=== PATIENT | male | born 1940 | race African-American/Black ===

== ENCOUNTER 2017-04-22 20:43 | Inpatient (IN) | payer MEDICARE, MEDICAID ==
[~2017-04-22] VITALS: Ht 180.3 cm; Wt 96.6 kg
[2017-04-22] MEDS ORDERED: KCl 10% 40mEq/30ml liquid ORAL ONE (21:00)
[2017-04-22 21:30] VITALS: BP 117/57
--- NOTE | 2017-04-22 21:48 | Emergency Room Report ---
History of Present Illness General Chief Complaint: Abnormal Labs Source: Patient Present Illness HPI Patient is a 76-year-old male who presented after having increased abnormal laboratory testing. Patient had been sent in by primary care physician because potassium was alert be low. The patient denies any current complaints. He reportedly was DO NOT RESUSCITATE. He denies any fever he denies any abdominal pain or recent diarrhea. Allergies: Coded Allergies: No Known Allergies (Unverified , 04/22/17) Patient History Reviewed Nursing Documentation: PMH: Agreed, PSxH: Agreed Nursing Documentation-PM Past Medical History: No History, Except For Hx Diabetes: Yes - DM2 Review of Systems All Other Systems: limited - by poor historian Physical Exam Vital Signs Date Time Temp Pulse Resp B/P Pulse Ox O2 Delivery O2 Flow Rate FiO2 04/22/17 20:36 98.1 64 16 117/57 98 Room Air Sp02 EP Interpretation: reviewed, normal General Appearance: normal inspection, well appearing, no apparent distress, alert Head: atraumatic ENT: normal ENT inspection, hearing grossly normal, normal voice Neck: normal inspection, full range of motion, supple, no bony tend Respiratory: normal inspection, lungs clear, normal breath sounds, no respiratory distress, no retraction, no wheezing Cardiovascular #1: regular rate, rhythm, no edema Gastrointestinal: non tender, soft, no guarding, no hernia, distended Genitourinary: no CVA tenderness Musculoskeletal: normal inspection, back normal, normal range of motion Neurologic: normal inspection, alert, oriented x3, responsive, speech normal Psychiatric: normal inspection, judgement/insight normal, mood/affect normal Skin: normal inspection, normal color, no rash Medical Decision Making Diagnostic Impression: Primary Impression: Hyperkalemia Additional Impressions: Gastroparesis Ileus ER Course The patient presented for abnormal laboratory values.Patient was noted to have hypokalemia. Differential diagnosis included wasn't limited to hypothyroidism, diuretic use, diarrhea, renal tubular acidosis among others.Because of complexity of patient's case laboratory testing and imaging studies were ordered.Patient was noted to have a low potassium from facility laboratory testing. Patient was given oral potassium. A repeat laboratory testing showed elevated potassium level. Patient was given rectal Kayexalate. KUB one view interpreted by me showed a multiple dilated loops of large intestine as well as retained stool. Dr. Nicolas was contacted for inpatient management due to primary care physician Labs Test 8/1/17 22:15 White Blood Count 9.1 K/UL (4.8-10.8) Red Blood Count 4.13 M/UL (4.70-6.10) Hemoglobin 13.3 G/DL (14.2-18.0) Hematocrit 38.7 % (42.0-52.0) Mean Corpuscular Volume 94 FL (80-99) Mean Corpuscular Hemoglobin 32.1 PG (27.0-31.0) Mean Corpuscular Hemoglobin Concent 34.2 G/DL (32.0-36.0) Red Cell Distribution Width 12.8 % (11.6-14.8) Platelet Count 258 K/UL (150-450) Mean Platelet Volume 7.7 FL (6.5-10.1) Neutrophils (%) (Auto) 74.5 % (45.0-75.0) Lymphocytes (%) (Auto) 18.9 % (20.0-45.0) Monocytes (%) (Auto) 5.0 % (1.0-10.0) Eosinophils (%) (Auto) 0.7 % (0.0-3.0) Basophils (%) (Auto) 0.9 % (0.0-2.0) Sodium Level 145 mEQ/L (135-145) Potassium Level 5.3 mEQ/L (3.4-4.9) Chloride Level 109 mEQ/L (98-107) Carbon Dioxide Level 23 mEQ/L (20-30) Anion Gap 13 (5-15) Blood Urea Nitrogen 20 mg/dL (7-23) Creatinine 1.1 mg/dL (0.7-1.2) Estimat Glomerular Filtration Rate mL/min (>60) Glucose Level 140 mg/dL (74-106) Lactic Acid Level 1.40 mmol/L (0.66-2.22) Calcium Level 8.9 mg/dL (8.6-10.2) Total Bilirubin 0.3 mg/dL (0.0-1.2) Aspartate Amino Transf (AST/SGOT) 37 U/L (5-40) Alanine Aminotransferase (ALT/SGPT) 22 U/L (3-41) Alkaline Phosphatase 76 U/L (40-129) Ammonia 43 umol/L (16-60) Total Creatine Kinase 143 U/L (38-174) Creatine Kinase MB 2.5 ng/mL (< 6.7) Creatine Kinase MB Relative Index 1.7 Troponin I < 0.30 ng/mL (<=0.30) Total Protein 7.5 g/dL (6.6-8.7) Albumin 3.4 g/dL (3.5-5.2) Globulin 4.1 g/dL Albumin/Globulin Ratio 0.8 (1.0-2.7) Last Vital Signs Date Time Temp Pulse Resp B/P Pulse Ox O2 Delivery O2 Flow Rate FiO2 04/22/17 20:36 98.1 64 16 117/57 98 Room Air Status: unchanged Disposition: ADMITTED INPATIENT Condition: Stable Referrals: Jose Francisco Chand MD (PCP) Toño Joe Apr 22, 2017 21:48
[2017-04-22 22:49] LABS: BASOPHILS % (AUTO) 0.9 % (0.0-2.0); EOSINOPHILS % (AUTO) 0.7 % (0.0-3.0); LYMPHOCYTES % (AUTO) 18.9 % (20.0-45.0); MEAN CORPUSCULAR HEMOGLOBIN 32.1 PG (27.0-31.0); MEAN CORPUSCULAR HGB CONC 34.2 G/DL (32.0-36.0); MEAN CORPUSCULAR VOLUME 94 FL (80-99); MEAN PLATELET VOLUME 7.7 FL (6.5-10.1); NEUTROPHILS % (AUTO) 74.5 % (45.0-75.0); PLATELET COUNT 258 K/UL (150-450); RED BLOOD COUNT 4.13 M/UL (4.70-6.10); RED CELL DISTRIBUTION WIDTH 12.8 % (11.6-14.8); WHITE BLOOD COUNT 9.1 K/UL (4.8-10.8)
[2017-04-22] MEDS ORDERED: SIMETHICONE80 MG ORAL (23:00)
[2017-04-22] MEDS ORDERED: TAMSULOSIN HCL0.4 MG ORAL (23:00)
[2017-04-22] MEDS ORDERED: FLORANEX TABLE1 EAC1 PO (23:00)
[2017-04-22] MEDS ORDERED: AMLODIPINE BESYL5 MG ORAL (23:00)
[2017-04-22] MEDS ORDERED: LEVEMIR100 UNIT/1 SUBQ (23:00)
[2017-04-22] MEDS ORDERED: VITAMIN C500 M1 ORAL (23:00)
[2017-04-22] MEDS ORDERED: REGLAN10 MG ORAL (23:00)
[2017-04-22] MEDS ORDERED: PROSCAR5 MG ORAL (23:00)
[2017-04-22] MEDS ORDERED: NOVOLOG100 UNIT/3 SUBQ ×2 (23:00)
[2017-04-22] MEDS ORDERED: ATORVASTATIN CA10 MG ORAL (23:00)
[2017-04-22] MEDS ORDERED: MULTIVITAMINS1 EAC8 ORAL (23:00)
[2017-04-22] MEDS ORDERED: FERROUS SULFAT325 MG ORAL (23:00)
[2017-04-22] MEDS ORDERED: POTASSIUM CHLO20 ME1 ORAL (23:00)
[2017-04-22] MEDS ORDERED: HYDRALAZINE HCL50 MG ORAL (23:00)
[2017-04-22] MEDS ORDERED: CATAPRES0.1 MG ORAL (23:00)
[2017-04-22] MEDS ORDERED: TYLENOL EXTRA500 MG ORAL (23:00)
[2017-04-22] MEDS ORDERED: ASPIR 8181 MG ORAL (23:00)
[2017-04-22] MEDS ORDERED: LEVOTHYROXINE25 MCG ORAL (23:00)
[2017-04-22] MEDS ORDERED: DOCUSATE SODIU100 MG ORAL (23:00)
[2017-04-22 23:01] LABS: AMMONIA 43 umol/L (16-60); TROPONIN I < 0.30 ng/mL (<=0.30)
[2017-04-22 23:03] LABS: ALANINE AMINOTRANSFERASE 22 U/L (3-41); ALBUMIN/GLOBULIN RATIO 0.8 (1.0-2.7); ANION GAP 13 (5-15); ASPARTATE AMINO TRANSFERASE 37 U/L (5-40); CALCIUM 8.9 mg/dL (8.6-10.2); CARBON DIOXIDE 23 mEQ/L (20-30); CHLORIDE 109 mEQ/L (98-107); CREATININE 1.1 mg/dL (0.7-1.2); HEMOLYSIS 394; POTASSIUM 5.3 mEQ/L (3.4-4.9); SODIUM 145 mEQ/L (135-145); TOTAL PROTEIN 7.5 g/dL (6.6-8.7)
[2017-04-22 23:13] LABS: CKMB 2.5 ng/mL (< 6.7)
[2017-04-22] MEDS ORDERED: Sodium Polystyrene Sulfonate Enema RECTAL ONE (23:45)
[2017-04-23] VITALS (9 sets, daily range): BP systolic 120–195; BP diastolic 60–99
[2017-04-23] MEDS ORDERED: Sodium Polystyrene Sulfonate 15gm Powder ONE (00:19)
[2017-04-23] MEDS ORDERED: Metoclopramide 10mg/2ml Inj IVP PRN (10:45)
--- NOTE | 2017-04-23 11:11 | Diagnostic Imaging Report ---
Indication: Abdominal distention and pain Technique: Supine view of the abdomen Comparison: none Findings: The distal colon is markedly dilated, sigmoid loops measuring up to 15 cm in caliber. Colon proximal to this is also somewhat distended, diffusely gas filled. No definite wall thickening Moderate amount retained stool is present. Small bowel loops are not definitely dilated. No unusual masses or calcifications Impression: Markedly dilated sigmoid colon. While likely on a functional basis possibility of sigmoid volvulus should also be considered. Correlate with clinical findings
[2017-04-23] MEDS: NovoLOG Insulin Flexpen SUBQ SCH ×3 (13:02→21:29)
[2017-04-23] MEDS ORDERED: Simethicone 80mg tab ORAL PRN (14:30)
--- NOTE | 2017-04-23 14:30 | Consultation ---
Consult Note Consult Note asked to eval for high K Patient is a 76-year-old male who presented after having increased abnormal laboratory testing. Patient had been sent in by primary care physician because potassium was alert be low. The patient denies any current complaints. He reportedly was DO NOT RESUSCITATE. He denies any fever he denies any abdominal pain or recent diarrhea. Past Medical History: No History, Except For Hx Diabetes: Yes - DM2 Patient denies pain examined- data reviewed Assessment/Plan HyperKalemia, ? Dehydration , ? Hemolysis Obstipation HTN High Cholestrol Anemia DM HypoThyroidism Plan: Ua Hydrate- Laxatives Monitor lytes and BS and BP MAEVE RUIZ Apr 23, 2017 14:30
[2017-04-23] MEDS: Docusate 100mg cap ORAL SCH ×2 (14:52→17:51)
[2017-04-23] MEDS: Tamsulosin 0.4mg cap ORAL SCH ×2 (14:52→17:51)
[2017-04-23 15:38] LABS: APPEARANCE,URINE SLIGHTLY CLOUDY; KETONES,URINE NEGATIVE (NEGATIVE); LEUKOCYTE ESTERASE ,URINE 3+ (NEGATIVE); NITRITE,URINE NEGATIVE (NEGATIVE); PH,URINE 5 (4.5-8.0); PROTEIN,URINE 3+ (NEGATIVE); UROBILINOGEN,URINE 1 MG/DL (0.0-1.0)
[2017-04-23 16:06] LABS: WBC,URINE 15-20 /HPF (0 - 0)
[2017-04-23 16:07] LABS: BACTERIA,URINE MANY /HPF; SQUAMOUS EPITHELIAL CELL,UR OCCASIONAL /LPF (NONE/OCC)
[2017-04-23] MEDS: Ascorbic Acid 500mg tab ORAL SCH (17:51)
[2017-04-23] MEDS: Lactobacillus-GG tablet ORAL SCH (17:51)
[2017-04-23] MEDS ORDERED: Lactulose 20gm/30ml UDC ORAL SCH ×2 (18:00)
[2017-04-23] MEDS: HydrALAZINE 50mg tab ORAL SCH (18:22)
[2017-04-23] MEDS ORDERED: Tamsulosin 0.4mg cap ORAL SCH (21:00)
[2017-04-23] MEDS: Levemir Flexpen SUBQ SCH (21:28)
--- NOTE | 2017-04-23 22:00 | History and Physical Report ---
DATE OF ADMISSION: 04/22/2017 The patient is a poor historian, has advanced dementia, cannot rely upon his history. HISTORY OF PRESENT ILLNESS: The patient's potassium was low actually at the alf, however, somehow the labs at [facility] showed actually an elevated potassium. The patient also has abdominal distention likely fecal impaction . Again, the patient is a poor historian, cannot rely upon his history. Denies nausea, vomiting, or diarrhea. Denies fever or chills. Denies abdominal pain, shortness of breath, or cough. Denies chills. PAST MEDICAL HISTORY: Advanced dementia, NIDDM, hyperlipidemia, hypertension, iron deficiency anemia, BPH, hypothyroidism, and gastroparesis. PAST SURGICAL HISTORY: Appendectomy. MEDICATIONS: Acidophilus, Tylenol, amlodipine, vitamin C, aspirin, Lipitor, clonidine, Colace, ferrous sulfate, finasteride, hydralazine, insulin, Levoxyl, Reglan, potassium, simethicone, and Flomax. ALLERGIES: No known allergies. SOCIAL HISTORY: . Lives at alf. FAMILY HISTORY: Noncontributory. REVIEW OF SYSTEMS: HEENT: Denies headaches. Respiratory: Denies shortness of breath. Denies cough. Cardiovascular: Denies chest pain. Gastrointestinal: Denies nausea, vomiting or diarrhea. Extremities: Denies pain in the lower extremities. Central Nervous System: Denies change in vision or speech pattern. PHYSICAL EXAMINATION: VITAL SIGNS: Temperature is 98.2 degrees, pulse 69, and blood pressure 182/79. HEENT: PERRLA. NECK: Supple. No lymphadenopathy. CHEST: Clear to auscultation. GASTROINTESTINAL: Soft and distended. Positive bowel sounds. No organomegaly. EXTREMITIES: No edema. NEUROLOGIC: Reflexes are equal on both sides. Moves all four extremities. No edema. Oriented to name only which is his baseline. Able to move extremities. LABORATORY AND DIAGNOSTIC DATA: WBC 9.1, hemoglobin 13.3, and platelets 258,000. Sodium 145, potassium 5.3, chloride 109, BUN 20, creatinine 1.1, and glucose 140. ASSESSMENT: 1. Ileus. 2. Fecal impaction. 3. Electrolyte imbalance. I have asked to see the patient for the above-mentioned diagnoses and treatment. Ali Flex Chand DR: Glen[place] JOB#: [id number] CC:
--- NOTE | 2017-04-23 22:42 | General Progress Note ---
Assessment/Plan Assessment/Plan GI CONSULT Dictated Patient has a benign abd exam but a concerning KUB Will get CT to evaluate for possible volvulus. Keep NPO Thank you Naresh Prather MD Subjective Allergies: Coded Allergies: No Known Allergies (Unverified , 04/22/17) Objective Last 24 Hour Vital Signs Date Time Temp Pulse Resp B/P Pulse Ox O2 Delivery O2 Flow Rate FiO2 04/23/17 20:56 61 146/67 04/23/17 20:00 98.1 61 20 146/67 100 Room Air 04/23/17 18:22 195/99 04/23/17 16:00 98.6 62 18 195/99 99 Room Air 04/23/17 12:50 77 160/69 04/23/17 12:00 98.3 65 17 156/85 99 Room Air 04/23/17 08:00 97.5 68 18 120/70 98 Room Air 04/23/17 04:00 97.0 60 17 165/73 98 Room Air 04/23/17 01:59 161/72 04/23/17 01:50 98.2 69 20 183/79 100 Room Air 04/23/17 00:30 98.0 70 17 120/60 98 Room Air 04/22/17 23:47 98.1 77 16 117/57 98 Room Air Intake and Output 04/22/17 04/23/17 19:00 07:00 Intake Total 100 ml Output Total 0 ml Balance 100 ml Intake Oral 100 ml Output Urine Total 0 ml # Voids 2 # Bowel Movements 3 Laboratory Tests 04/23/17 15:23: Urine Color Yellow, Urine Appearance Slightly cloudy, Urine pH 5, Urine Specific [place] 1.020, Urine Protein 3+H, Urine Glucose (UA) Negative, Urine Ketones Negative, Urine Occult Blood 1+H, Urine Nitrite Negative, Urine Bilirubin Negative, Urine Urobilinogen 1H, Urine Leukocyte Esterase 3+H, Urine RBC 2-4H, Urine WBC 15-20H, Urine Squamous Epithelial Cells Occasional, Urine Bacteria ManyH Height (Feet): 5 Height (Inches): 11.00 Weight (Pounds): 213 NARESH SPARROW Apr 23, 2017 22:42
[2017-04-24 04:00] VITALS: BP 158/84
[2017-04-24] MEDS: Levothyroxine 25mcg tab ORAL SCH (06:26)
[2017-04-24] MEDS: HydrALAZINE 50mg tab ORAL SCH ×3 (06:26→21:46)
[2017-04-24] MEDS: NovoLOG Insulin Flexpen SUBQ SCH ×4 (06:27→21:48)
[2017-04-24 07:09] LABS: BASOPHILS % (AUTO) 0.6 % (0.0-2.0); LYMPHOCYTES % (AUTO) 16.9 % (20.0-45.0); MEAN CORPUSCULAR HEMOGLOBIN 30.7 PG (27.0-31.0); MEAN CORPUSCULAR HGB CONC 32.7 G/DL (32.0-36.0); MEAN CORPUSCULAR VOLUME 94 FL (80-99); MEAN PLATELET VOLUME 6.9 FL (6.5-10.1); MONOCYTES % (AUTO) 5.6 % (1.0-10.0); NEUTROPHILS % (AUTO) 75.9 % (45.0-75.0); PLATELET COUNT 225 K/UL (150-450); RED BLOOD COUNT 3.55 M/UL (4.70-6.10); RED CELL DISTRIBUTION WIDTH 12.6 % (11.6-14.8); WHITE BLOOD COUNT 8.9 K/UL (4.8-10.8)
[2017-04-24 07:13] LABS: HEMOGLOBIN A1C 5.2 % (< 6.0)
[2017-04-24 07:23] LABS: FERRITIN 126 ng/mL (10-230)
[2017-04-24 07:24] LABS: ALANINE AMINOTRANSFERASE 16 U/L (3-41); ANION GAP 11 (5-15); ASPARTATE AMINO TRANSFERASE 12 U/L (5-40); CALCIUM 8.1 mg/dL (8.6-10.2); CARBON DIOXIDE 24 mEQ/L (20-30); CHLORIDE 109 mEQ/L (98-107); CHOLESTEROL 99 mg/dL (< 200); CHOLESTEROL/HDL RATIO 2.6 (3.3-4.4); CRP QUANT < 0.3 mg/dL (< 0.5); LDL CHOLESTEROL (CALC.) 50 mg/dL (60-99); MAGNESIUM 1.6 mg/dL (1.7-2.5); PHOSPHORUS 3.1 mg/dL (2.5-4.8); SODIUM 144 mEQ/L (135-145); TOTAL PROTEIN 6.2 g/dL (6.6-8.7); URIC ACID 5.3 mg/dL (3.0-7.5)
[2017-04-24 07:30] LABS: POTASSIUM 2.5 mEQ/L (3.4-4.9)
--- NOTE | 2017-04-24 07:31 | Consultation ---
DATE OF CONSULTATION: 04/23/2017 GASTROLOGY CONSULTATION CONSULTING PHYSICIAN: Naresh Sher M.D. CHIEF COMPLAINT: I was asked to see this patient by Dr. Jose Francisco Chand for evaluation of distended abdomen. HISTORY OF PRESENT ILLNESS: The patient is a pleasant 76-year-old man with advanced dementia, who comes into the hospital due to an elevated potassium. The patient was also found to have a distended abdomen which prompted this consultation. The patient denies any abdominal discomfort, nausea or vomiting. He denies the pain and says he has regular bowel movements. He cannot recall if he had a colonoscopy or any surgeries on his abdomen. He states he has been eating well. PAST MEDICAL HISTORY: History of advanced dementia, [id number] diabetes mellitus, hyperlipidemia, hypertension, iron deficiency anemia, benign prostatic hypertrophy, hypothyroidism, and gastroparesis. PAST SURGICAL HISTORY: Appendectomy. MEDICATIONS: See the chart list for records. ALLERGIES: None. FAMILY HISTORY: Noncontributory. SOCIAL HISTORY: The patient lives in a snf and has had no recent history of smoking or drinking. REVIEW OF SYSTEMS: Otherwise negative. PHYSICAL EXAMINATION: GENERAL: Pleasant man, seen in his room. HEENT: Normocephalic and atraumatic. Sclerae anicteric. Oropharynx is clear. NECK: Supple. CHEST: Clear to auscultation. CARDIOVASCULAR: Revealed a regular rate. ABDOMEN: Distended, but soft and tympanitic. There is no obvious masses or tenderness. EXTREMITIES: Revealed bilateral lower extremity edema. NEUROLOGIC: Grossly nonfocal. LABORATORY DATA: Noted. ASSESSMENT: This patient presents with distended abdomen, which is tympanitic, but nontender. There concerning however is the appearance of the KUB, which shows a marked distention of the sigmoid colon with a loop pattern, which is suspicious for sigmoid volvulus. The patient should have an urgent CT scan of the abdomen and pelvis to evaluate this possibility further. He clearly does not seem to be in any discomfort and therefore, this finding may be due to a functional disorder. Nonetheless, the CT scan should help evaluate this process and guide management. RECOMMENDATIONS: 1. Keep the patient NPO. 2. CT scan of the abdomen and pelvis. 3. Follow exam and x-rays closely. 4. Further recommendations to follow. Thank you for asking me to participate in the care of this patient. Naresh Sher M.D. DR: LOPEZ JOB#: [id number] CC:
[2017-04-24 07:43] LABS: HEMOLYSIS 2; IRON 41 ug/dL (59-158); TOTAL IRON BINDING CAPACITY 173 ug/dL (250-400)
[2017-04-24 08:00] VITALS: BP 167/68
[2017-04-24 08:12] LABS: CREATININE 0.9 mg/dL (0.7-1.2)
[2017-04-24] MEDS: Docusate 100mg cap ORAL SCH ×3 (08:48→17:15)
[2017-04-24] MEDS: Lactobacillus-GG tablet ORAL SCH ×2 (08:48→17:15)
[2017-04-24] MEDS: Multivitamin w/Minerals tab ORAL SCH (08:49)
[2017-04-24] MEDS: Ascorbic Acid 500mg tab ORAL SCH ×2 (08:49→17:15)
[2017-04-24] MEDS: Aspirin EC 81mg tab ORAL SCH (08:49)
[2017-04-24] MEDS: Tamsulosin 0.4mg cap ORAL SCH ×2 (08:53→17:15)
--- NOTE | 2017-04-24 08:58 | Diagnostic Imaging Report ---
Indication: Abdominal pain Technique: Continuous helical transaxial imaging of the abdomen and pelvis was obtained from the lung bases to the pubic symphysis. No intravenous contrast was administered. Coronal 2-D reformats were also obtained. Total Dose length Product (DLP): [address] Dose Index Volume (CTDIvol): 18 mGy Comparison: none Findings: There is a hiatal hernia present. There is a suspected thickening of the distal esophageal wall. Esophagitis not excluded. Small pericardial effusion is present. Lung bases are clear. Suspect tiny nonobstructive stone in the left kidney. A large mass in the left kidney is probably a cyst measures about 7 cm in diameter. Gallbladder is contracted. The sigmoid colon is redundant and elongated and dilated measuring up to about 10 CM. There is no evidence of volvulus. There is slight twisting of the dorsal mesentery within the mid abdomen with slight swirled like pattern of the dorsal mesenteric root. The findings suggest the possibility of internal hernia. There is no obstruction associated with this. No inflammatory changes or free fluid seen. There is moderate fecal retention within the rectal vault noted. The appendix is not densely seen. There are no secondary signs of acute appendicitis. There is prominence of both adrenal glands. There is narrowing of intervertebral discs and accompanying endplate osteophyte formation. Hypertrophied facet joints also demonstrated. The bones demonstrate heterogeneous, overall diminished mineralization. This could be due to a osteoporosis. Possibility of myeloma, metastatic neoplasm or other infiltrative diseases are not excluded. Impression: Moderately dilated and air-filled sigmoid colon is redundant and elongated. No evidence of sigmoid volvulus or colonic obstruction. Pattern of dorsal mesentery in the mid to lower abdomen suggest possibility of an internal hernia. This is not associated with bowel obstruction or other complications. Suspected tiny nonobstructive stone in left kidney. Bilateral adrenal gland prominence could be due to hyperplasia or is presence of small bilateral adrenal masses. Suspected thickening of the wall the distal esophagus. EGD may be helpful for. 7 cm left renal mass. Cyst probably a cyst. Atherosclerotic disease Small pericardial effusion Spondylosis. Abnormal bone mineralization. Metastatic neoplasm or myeloma not excluded. Consider bone scan. Dr. Biggs has communicated the preliminary results to the Emergency Department. There are no significant discrepancies. The CT scanner at [facility] is accredited by the [employer] and the scans are performed using dose optimization techniques as appropriate to a performed exam including Automatic Exposure control.
[2017-04-24] MEDS ORDERED: Levothyroxine 25mcg tab ORAL SCH (09:00)
[2017-04-24] MEDS: Levemir Flexpen SUBQ SCH ×2 (11:07→21:52)
[2017-04-24 12:00] VITALS: BP 150/68
--- NOTE | 2017-04-24 12:31 | General Progress Note ---
Assessment/Plan Assessment/Plan Assessment - colonic dysmotility - abd distention - OBS - NIDDM\ - anemia - h/o gastroparesis Recommendations - po diet - OOB - Bowel regimen - check OB Subjective Allergies: Coded Allergies: No Known Allergies (Unverified , 04/22/17) Subjective Feels well ate solid breakfast no abd pain no N/V CT noted Objective Last 24 Hour Vital Signs Date Time Temp Pulse Resp B/P Pulse Ox O2 Delivery O2 Flow Rate FiO2 04/24/17 12:00 97.7 62 18 150/68 100 Room Air 04/24/17 08:49 48 167/68 04/24/17 08:00 97.9 48 18 167/68 Room Air 04/24/17 06:26 158/84 04/24/17 04:00 98.1 72 18 158/84 98 Room Air 04/24/17 00:40 186/79 04/23/17 23:54 98.1 56 20 186/79 100 Room Air 04/23/17 20:56 61 146/67 04/23/17 20:00 98.1 61 20 146/67 100 Room Air 04/23/17 18:22 195/99 04/23/17 16:00 98.6 62 18 195/99 99 Room Air 04/23/17 12:50 77 160/69 Intake and Output 04/23/17 04/24/17 19:00 07:00 Intake Total 650 ml 800 ml Output Total 50 ml Balance 600 ml 800 ml Intake Oral 650 ml IV Total 800 ml Output Urine Total 50 ml # Voids 2 2 # Bowel Movements 2 2 Laboratory Tests 04/23/17 15:23: Urine Color Yellow, Urine Appearance Slightly cloudy, Urine pH 5, Urine Specific [place] 1.020, Urine Protein 3+H, Urine Glucose (UA) Negative, Urine Ketones Negative, Urine Occult Blood 1+H, Urine Nitrite Negative, Urine Bilirubin Negative, Urine Urobilinogen 1H, Urine Leukocyte Esterase 3+H, Urine RBC 2-4H, Urine WBC 15-20H, Urine Squamous Epithelial Cells Occasional, Urine Bacteria ManyH 04/24/17 06:00: White Blood Count 8.9, Red Blood Count 3.55L, Hemoglobin 10.9L, Hematocrit 33.4L , Mean Corpuscular Volume 94, Mean Corpuscular Hemoglobin 30.7, Mean Corpuscular Hemoglobin Concent 32.7, Red Cell Distribution Width 12.6, Platelet Count 225, Mean Platelet Volume 6.9, Neutrophils (%) (Auto) 75.9H, Lymphocytes ( %) (Auto) 16.9L, Monocytes (%) (Auto) 5.6, Eosinophils (%) (Auto) 1.0, Basophils (%) (Auto) 0.6, Reticulocyte Count 1.1, Sodium Level 144, Potassium Level 2.5#*L, Chloride Level 109H, Carbon Dioxide Level 24, Anion Gap 11, Blood Urea Nitrogen 14, Creatinine 0.9, Estimat Glomerular Filtration Rate , Glucose Level 65L, Hemoglobin A1c 5.2, Uric Acid 5.3, Calcium Level 8.1L, Phosphorus Level 3.1, Magnesium Level 1.6L, Iron Level 41L, Total Iron Binding Capacity 173L, Percent Iron Saturation 24, Unsaturated Iron Binding 132, Soluble Transferrin Receptor [Pending], Ferritin 126, Total Bilirubin 0.3, Aspartate Amino Transf (AST/SGOT) 12, Alanine Aminotransferase (ALT/SGPT) 16, Alkaline Phosphatase 72, C-Reactive Protein, Quantitative < 0.3, Total Protein 6.2L, Albumin 3.2L, Globulin 3.0, Albumin/Globulin Ratio 1.0, Triglycerides Level 55, Cholesterol Level 99, LDL Cholesterol 50L, HDL Cholesterol 38, Cholesterol/HDL Ratio 2.6L, Vitamin B12 Level 512, Folate [Pending], Thyroid Stimulating Hormone (TSH) 1.290 Height (Feet): 5 Height (Inches): 11.00 Weight (Pounds): 213 Objective WDWN AA man NCAT supple CTA RRR abd typmanitic, soft, NT, no mass (+) edema OBS CYNTHIA SPARROW Apr 24, 2017 12:31
--- NOTE | 2017-04-24 14:17 | General Progress Note ---
Assessment/Plan Status: stable Assessment/Plan HyperKalemia, ? Dehydration , ? Hemolysis Obstipation, colonic dysmotility, gastroparesis HTN High Cholestrol Anemia DM HypoThyroidism Plan: K IV per GI Subjective ROS Limited/Unobtainable: No Constitutional: Reports: malaise Gastrointestinal/Abdominal: Reports: diarrhea Allergies: Coded Allergies: No Known Allergies (Unverified , 04/22/17) Objective Last 24 Hour Vital Signs Date Time Temp Pulse Resp B/P Pulse Ox O2 Delivery O2 Flow Rate FiO2 04/24/17 12:00 97.7 62 18 150/68 100 Room Air 04/24/17 08:49 48 167/68 04/24/17 08:00 97.9 48 18 167/68 Room Air 04/24/17 06:26 158/84 04/24/17 04:00 98.1 72 18 158/84 98 Room Air 04/24/17 00:40 186/79 04/23/17 23:54 98.1 56 20 186/79 100 Room Air 04/23/17 20:56 61 146/67 04/23/17 20:00 98.1 61 20 146/67 100 Room Air 04/23/17 18:22 195/99 04/23/17 16:00 98.6 62 18 195/99 99 Room Air Intake and Output 04/23/17 04/24/17 19:00 07:00 Intake Total 650 ml 800 ml Output Total 50 ml Balance 600 ml 800 ml Intake Oral 650 ml IV Total 800 ml Output Urine Total 50 ml # Voids 2 2 # Bowel Movements 2 2 Laboratory Tests 04/23/17 15:23: Urine Color Yellow, Urine Appearance Slightly cloudy, Urine pH 5, Urine Specific [place] 1.020, Urine Protein 3+H, Urine Glucose (UA) Negative, Urine Ketones Negative, Urine Occult Blood 1+H, Urine Nitrite Negative, Urine Bilirubin Negative, Urine Urobilinogen 1H, Urine Leukocyte Esterase 3+H, Urine RBC 2-4H, Urine WBC 15-20H, Urine Squamous Epithelial Cells Occasional, Urine Bacteria ManyH 04/24/17 06:00: White Blood Count 8.9, Red Blood Count 3.55L, Hemoglobin 10.9L, Hematocrit 33.4L , Mean Corpuscular Volume 94, Mean Corpuscular Hemoglobin 30.7, Mean Corpuscular Hemoglobin Concent 32.7, Red Cell Distribution Width 12.6, Platelet Count 225, Mean Platelet Volume 6.9, Neutrophils (%) (Auto) 75.9H, Lymphocytes ( %) (Auto) 16.9L, Monocytes (%) (Auto) 5.6, Eosinophils (%) (Auto) 1.0, Basophils (%) (Auto) 0.6, Reticulocyte Count 1.1, Sodium Level 144, Potassium Level 2.5#*L, Chloride Level 109H, Carbon Dioxide Level 24, Anion Gap 11, Blood Urea Nitrogen 14, Creatinine 0.9, Estimat Glomerular Filtration Rate , Glucose Level 65L, Hemoglobin A1c 5.2, Uric Acid 5.3, Calcium Level 8.1L, Phosphorus Level 3.1, Magnesium Level 1.6L, Iron Level 41L, Total Iron Binding Capacity 173L, Percent Iron Saturation 24, Unsaturated Iron Binding 132, Soluble Transferrin Receptor [Pending], Ferritin 126, Total Bilirubin 0.3, Aspartate Amino Transf (AST/SGOT) 12, Alanine Aminotransferase (ALT/SGPT) 16, Alkaline Phosphatase 72, C-Reactive Protein, Quantitative < 0.3, Total Protein 6.2L, Albumin 3.2L, Globulin 3.0, Albumin/Globulin Ratio 1.0, Triglycerides Level 55, Cholesterol Level 99, LDL Cholesterol 50L, HDL Cholesterol 38, Cholesterol/HDL Ratio 2.6L, Vitamin B12 Level 512, Folate [Pending], Thyroid Stimulating Hormone (TSH) 1.290 Height (Feet): 5 Height (Inches): 11.00 Weight (Pounds): 213 General Appearance: no apparent distress Cardiovascular: normal rate Respiratory/Chest: lungs clear Abdomen: soft, distended MAEVE RUIZ Apr 24, 2017 14:17
[2017-04-24 16:01] VITALS: BP 148/72
[2017-04-24 20:00] VITALS: BP 163/71
--- NOTE | 2017-04-24 21:05 | General Progress Note ---
Assessment/Plan Problem List: (1) Ileus ICD Codes: K56.7 - Ileus, unspecified SNOMED: 814638552 (2) Hyperkalemia ICD Codes: E87.5 - Hyperkalemia SNOMED: 93704594 (3) Gastroparesis ICD Codes: K31.84 - Gastroparesis SNOMED: 383072988 Status: progressing Assessment/Plan afebrile fecal impaction improving vitals stable lyte abnormality improving gastroparesis obs Subjective Constitutional: Reports: no symptoms Allergies: Coded Allergies: No Known Allergies (Unverified , 04/22/17) Objective Last 24 Hour Vital Signs Date Time Temp Pulse Resp B/P Pulse Ox O2 Delivery O2 Flow Rate FiO2 04/24/17 20:00 99.0 68 18 163/71 98 Room Air 04/24/17 16:01 98.0 54 18 148/72 98 Nasal Cannula 04/24/17 14:30 150/68 04/24/17 12:00 97.7 62 18 150/68 100 Room Air 04/24/17 08:49 48 167/68 04/24/17 08:00 97.9 48 18 167/68 Room Air 04/24/17 06:26 158/84 04/24/17 04:00 98.1 72 18 158/84 98 Room Air 04/24/17 00:40 186/79 04/23/17 23:54 98.1 56 20 186/79 100 Room Air Intake and Output 04/23/17 04/24/17 19:00 07:00 Intake Total 650 ml 800 ml Output Total 50 ml Balance 600 ml 800 ml Intake Oral 650 ml IV Total 800 ml Output Urine Total 50 ml # Voids 2 2 # Bowel Movements 2 2 Laboratory Tests 04/24/17 06:00: White Blood Count 8.9, Red Blood Count 3.55L, Hemoglobin 10.9L, Hematocrit 33.4L , Mean Corpuscular Volume 94, Mean Corpuscular Hemoglobin 30.7, Mean Corpuscular Hemoglobin Concent 32.7, Red Cell Distribution Width 12.6, Platelet Count 225, Mean Platelet Volume 6.9, Neutrophils (%) (Auto) 75.9H, Lymphocytes ( %) (Auto) 16.9L, Monocytes (%) (Auto) 5.6, Eosinophils (%) (Auto) 1.0, Basophils (%) (Auto) 0.6, Reticulocyte Count 1.1, Sodium Level 144, Potassium Level 2.5#*L, Chloride Level 109H, Carbon Dioxide Level 24, Anion Gap 11, Blood Urea Nitrogen 14, Creatinine 0.9, Estimat Glomerular Filtration Rate , Glucose Level 65L, Hemoglobin A1c 5.2, Uric Acid 5.3, Calcium Level 8.1L, Phosphorus Level 3.1, Magnesium Level 1.6L, Iron Level 41L, Total Iron Binding Capacity 173L, Percent Iron Saturation 24, Unsaturated Iron Binding 132, Soluble Transferrin Receptor [Pending], Ferritin 126, Total Bilirubin 0.3, Aspartate Amino Transf (AST/SGOT) 12, Alanine Aminotransferase (ALT/SGPT) 16, Alkaline Phosphatase 72, C-Reactive Protein, Quantitative < 0.3, Total Protein 6.2L, Albumin 3.2L, Globulin 3.0, Albumin/Globulin Ratio 1.0, Triglycerides Level 55, Cholesterol Level 99, LDL Cholesterol 50L, HDL Cholesterol 38, Cholesterol/HDL Ratio 2.6L, Vitamin B12 Level 512, Folate [Pending], Thyroid Stimulating Hormone (TSH) 1.290 Height (Feet): 5 Height (Inches): 11.00 Weight (Pounds): 213 General Appearance: confused Cardiovascular: normal rate Respiratory/Chest: lungs clear Jose Francisco Chand MD Apr 24, 2017 21:05
[2017-04-25] VITALS: BP 132/66
--- NOTE | 2017-04-25 02:15 | Consultation ---
DATE OF CONSULTATION: 04/24/2017 HISTORY OF PRESENT ILLNESS: This is a 76-year-old male with a history of multiple medical problems including ileus, hyperkalemia, and gastroparesis. He has been admitted to the hospital presenting with also has history of advanced dementia. The patient was sitting in the room watching TV. He was in no acute distress. He complained of depressed mood and fatigue. He has impairment of memory, concentration, and attention. PAST PSYCHIATRIC HISTORY: He is not able to provide history, but however, is not significant for any psychiatric hospitalization in the past. He has been diagnosed with dementia in the past. PAST MEDICAL HISTORY: Significant for NIDDM, hyperlipidemia, hypothyroidism, hypertension, and iron deficiency anemia. MEDICATIONS: Include acidophilus, Tylenol, aspirin, Lipitor, clonidine, hydralazine, insulin, Reglan, potassium, and Flomax. ALLERGIES: No known drug allergies. SUBSTANCE ABUSE HISTORY: No history of illicit drug use or alcohol. SOCIAL HISTORY: He lives in a care home. MENTAL STATUS EXAMINATION: The patient is alert and oriented times self and place. Mood is neutral. Affect is constricted. Congruent mood. Thought process, there is a paucity of thought content. Thought content, no suicidal or homicidal ideation. Insight and judgment is impaired. ASSESSMENT: [place] I Dementia. [place] II Deferred. [place] III As above. [place] IV Moderate. [place] V 20 PLAN: We will order the Namenda 10 mg p.o. at bedtime. Greg Gupta M.D. DR: Yassine JOB#: [id number] CC:
[2017-04-25 04:00] VITALS: BP 128/62
[2017-04-25] MEDS: Levothyroxine 25mcg tab ORAL SCH (05:17)
[2017-04-25] MEDS: HydrALAZINE 50mg tab ORAL SCH ×2 (05:18→13:05)
[2017-04-25] MEDS: NovoLOG Insulin Flexpen SUBQ SCH ×3 (05:18→16:30)
--- NOTE | 2017-04-25 06:46 | Consultation ---
DATE OF CONSULTATION: 04/24/2017 HEMATOLOGY/ONCOLOGY CONSULTATION CONSULTING PHYSICIAN: Sterling Singletary M.D. REQUESTING PHYSICIAN: Jose Francisco Chand M.D. REASON FOR CONSULTATION: Evaluation of anemia. IDENTIFICATION DATA: Dear Dr. Jose Francisco Chand, The patient is a pleasant 76-year-old male with past medical history significant for type 2 diabetes mellitus. At this time, presents to [facility] with increased potassium, seen by PCP, elevated potassium was high and therefore transferred to [facility] and noted to be anemic. Hematology service consulted. PAST MEDICAL HISTORY: 1. Diabetes mellitus type 2. 2. Hypothyroidism. 3. Hyperlipidemia. 4. Hypertension. 5. Iron-deficiency anemia. 6. Gastroparesis. PAST SURGICAL HISTORY: Appendectomy. MEDICATIONS: Amlodipine, Tylenol, , aspirin, clonidine, Colace, ferrous sulfate, hydralazine , Levoxyl, Reglan, and potassium. ALLERGIES: No known drug allergies. SOCIAL HISTORY: He lives in a [facility]. FAMILY HISTORY: Noncontributory. REVIEW OF SYSTEMS: Constitutional: No fevers, chills, or night sweats. Skin: No rashes, lumps, or itching. HEENT: No headache, hearing, or vision changes. Breasts: No lumps, pain, or discharge. Pulmonary: No cough, sputum, or shortness of breath. Cardiovascular: No chest pain, tightness, or palpitations. Gastrointestinal: No nausea, vomiting, or diarrhea. . PHYSICAL EXAMINATION: GENERAL: He is in no acute distress. VITAL SIGNS: Reviewed. PULMONARY: Decreased breath sounds. CARDIOVASCULAR: Regular rate. No S3 or S4. ABDOMEN: Soft, nontender, and nondistended. EXTREMITIES: A 1+ edema. LABORATORY AND DIAGNOSTIC DATA: WBC 9.1, hemoglobin 13.3, hematocrit 35, and platelet count 258,000. BUN of 20 and creatinine 1.1. Imaging, CAT scan of the abdomen and pelvis shows abnormal bone mineralization on 04/24/2017, bilateral adrenal prominence. ASSESSMENT AND PLAN: 1. Anemia secondary to chronic disease. Anemia workup has been ordered and ferritin pending. Hold off on IV iron at the moment. 2. Sigmoid volvulus potentially, the patient currently NPO as per GI recommendations. 3. Hyperkalemia, has been seen by Nephrology service. 4. Gastroparesis and ileus. Continue to closely monitor. 5. . Sterling Singletary M.D. DR: Demarco JOB#: [id number] CC:
[2017-04-25 06:59] LABS: ALANINE AMINOTRANSFERASE 15 U/L (3-41); ASPARTATE AMINO TRANSFERASE 12 U/L (5-40); CALCIUM 7.8 mg/dL (8.6-10.2); CARBON DIOXIDE 24 mEQ/L (20-30); CHLORIDE 110 mEQ/L (98-107); HEMOLYSIS 2; MAGNESIUM 1.6 mg/dL (1.7-2.5); SODIUM 145 mEQ/L (135-145); TOTAL PROTEIN 5.9 g/dL (6.6-8.7)
[2017-04-25 07:15] LABS: ANION GAP 11 (5-15)
[2017-04-25 07:32] LABS: POTASSIUM 2.7 mEQ/L (3.4-4.9)
[2017-04-25 07:41] VITALS: BP 136/77
--- NOTE | 2017-04-25 08:38 | Infectious Diseases Prog Note ---
Assessment/Plan Problems: (1) UTI (urinary tract infection) Assessment & Plan: due to e coli, will start ceftriaxon , to treat for 7 days (2) Ileus Assessment & Plan: improving, advance diet as tolerated, replace electrolytes , GI is following (3) Diabetes mellitus Assessment & Plan: recommend tight glycemic control to keep blood glucose between 80-120 Subjective Allergies: Coded Allergies: No Known Allergies (Unverified , 04/22/17) Objective Vital Signs Last 24 Hour Vital Signs Date Time Temp Pulse Resp B/P Pulse Ox O2 Delivery O2 Flow Rate FiO2 04/25/17 07:41 97.5 77 20 136/77 97 Room Air 04/25/17 05:18 128/62 04/25/17 04:00 98.6 57 19 128/62 98 04/25/17 00:00 99.1 65 20 132/66 100 Room Air 04/24/17 21:46 163/71 04/24/17 21:46 68 163/71 04/24/17 20:00 99.0 68 18 163/71 98 Room Air 04/24/17 16:01 98.0 54 18 148/72 98 Nasal Cannula 04/24/17 14:30 150/68 04/24/17 12:00 97.7 62 18 150/68 100 Room Air 04/24/17 08:49 48 167/68 Height (Feet): 5 Height (Inches): 11.00 Weight (Pounds): 213 Microbiology Date/Time Source Procedure Growth Status 04/22/17 23:30 Blood Blood Culture - Preliminary NO GROWTH AFTER 48 HOURS Resulted 04/22/17 23:25 Blood Blood Culture - Preliminary NO GROWTH AFTER 48 HOURS Resulted 04/23/17 15:23 Urine,Clean Catch Urine Culture - Final Escherichia Coli Complete 04/23/17 01:40 Rectum VRE Culture - Final NO VANCOMYCIN RESISTANT ENTEROCOCCUS ... Complete Laboratory Tests Test 04/25/17 05:00 Sodium Level 145 mEQ/L (135-145) Potassium Level 2.7 mEQ/L (3.4-4.9) *L Chloride Level 110 mEQ/L (98-107) H Carbon Dioxide Level 24 mEQ/L (20-30) Anion Gap 11 (5-15) Blood Urea Nitrogen 14 mg/dL (7-23) Creatinine 1.0 mg/dL (0.7-1.2) Estimat Glomerular Filtration Rate mL/min (>60) Glucose Level 61 mg/dL (74-106) L Calcium Level 7.8 mg/dL (8.6-10.2) L Phosphorus Level 3.0 mg/dL (2.5-4.8) Magnesium Level 1.6 mg/dL (1.7-2.5) L Total Bilirubin 0.2 mg/dL (0.0-1.2) Aspartate Amino Transf (AST/SGOT) 12 U/L (5-40) Alanine Aminotransferase (ALT/SGPT) 15 U/L (3-41) Alkaline Phosphatase 79 U/L (40-129) Total Protein 5.9 g/dL (6.6-8.7) L Albumin 3.0 g/dL (3.5-5.2) L Globulin 2.9 g/dL Albumin/Globulin Ratio 1.0 (1.0-2.7) Current Medications Medications (Trade) Dose Ordered Sig/Kevin Route PRN Reason Start Time Stop Time Status Last Admin Dose Admin Acetaminophen (Tylenol) 650 mg Q6H PRN ORAL Fever/Headache/Mild Pain 04/23/17 01:15 05/23/17 01:14 Amlodipine Besylate (Norvasc) 5 mg Q12HR ORAL 04/23/17 21:00 05/23/17 20:59 04/24/17 21:46 Ascorbic Acid (Vitamin C) 500 mg TWICE A DAY ORAL 04/23/17 18:00 05/23/17 17:59 04/24/17 17:15 Aspirin (Ecotrin) 81 mg DAILY ORAL 04/24/17 09:00 05/24/17 08:59 04/24/17 08:49 Atorvastatin Calcium (Lipitor) 10 mg QHS ORAL 04/23/17 21:00 05/23/17 20:59 04/24/17 21:47 Bisacodyl (Dulcolax) 10 mg BID RECTAL 04/24/17 18:00 05/24/17 17:59 Clonidine HCl 0.1 mg 0.1 mg Q4H PRN ORAL For High Blood Pressure 04/23/17 20:30 05/23/17 20:29 04/24/17 00:40 Dextrose (Dextrose 50%) STAT PRN IV Hypoglycemia 04/23/17 11:00 05/23/17 10:59 Docusate Sodium (Colace) 100 mg THREE TIMES A DAY ORAL 04/23/17 14:30 05/23/17 14:29 04/24/17 17:15 Finasteride (Proscar) 5 mg DAILY ORAL 04/23/17 11:00 05/23/17 10:59 04/24/17 08:49 Hydralazine HCl (Apresoline) 50 mg EVERY 8 HOURS ORAL 04/23/17 22:00 05/23/17 21:59 04/25/17 05:18 Insulin Aspart (NovoLOG) BEFORE MEALS AND HS SUBQ 04/23/17 12:00 05/23/17 11:59 04/24/17 21:48 Insulin Detemir (Levemir) 39 units EVERY 12 HOURS SUBQ 04/23/17 21:00 05/23/17 20:59 04/24/17 21:52 Lactobacillus Acidophilus (Culturelle) 1 tab TWICE A DAY ORAL 04/23/17 18:00 05/23/17 17:59 04/24/17 17:15 Levothyroxine Sodium (Synthroid) 25 mcg DAILY@0630 ORAL 04/24/17 06:30 05/24/17 06:29 04/25/17 05:17 Memantine 10 mg 10 mg DAILY ORAL 04/25/17 09:00 05/25/17 08:59 Metoclopramide HCl (Reglan) 10 mg Q6H PRN IVP Nausea & Vomiting 04/23/17 10:45 05/23/17 10:44 Multivitamins Therapeutic (Therapeutic Multivitamin) 1 ea DAILY ORAL 04/24/17 09:00 05/24/17 08:59 04/24/17 08:49 Potassium Chloride (KCl 10mEq/100ml Premix) 100 ml @ 100 mls/hr Q1HR IVPB 04/25/17 09:00 04/25/17 14:59 UNV Simethicone (Mylicon) 80 mg Q12H PRN ORAL GAS PAIN 04/23/17 14:30 05/23/17 14:29 Sodium Chloride (0.45% NS 1000ml) 1,000 ml @ 50 mls/hr Q20H IV 04/24/17 09:00 05/24/17 08:59 04/25/17 05:11 Tamsulosin HCl (Flomax) 0.4 mg BID ORAL 04/23/17 14:30 05/23/17 14:29 04/24/17 17:15 Beth Miller M.D. Apr 25, 2017 08:38
[2017-04-25] MEDS: Ascorbic Acid 500mg tab ORAL SCH ×2 (08:56→16:51)
[2017-04-25] MEDS: Docusate 100mg cap ORAL SCH (08:56)
[2017-04-25] MEDS: Tamsulosin 0.4mg cap ORAL SCH ×2 (08:57→16:51)
[2017-04-25] MEDS: Aspirin EC 81mg tab ORAL SCH (08:57)
[2017-04-25] MEDS: Lactobacillus-GG tablet ORAL SCH ×2 (08:57→16:51)
[2017-04-25] MEDS: Multivitamin w/Minerals tab ORAL SCH (08:57)
[2017-04-25] MEDS: Levemir Flexpen SUBQ SCH (08:59)
[2017-04-25] MEDS ORDERED: Memantine 10mg tab ORAL SCH (09:00)
[2017-04-25] MEDS ORDERED: cefTRIAXone 1 GM in D5W 55 ML IVPB SCH (10:00)
[2017-04-25 11:37] VITALS: BP 163/76
--- NOTE | 2017-04-25 11:52 | General Progress Note ---
Assessment/Plan Status: stable Assessment/Plan HyperKalemia, ? Dehydration , ? Hemolysis Obstipation, colonic dysmotility, gastroparesis HTN High Cholestrol Anemia DM HypoThyroidism Plan: K IV and PO per GI Subjective ROS Limited/Unobtainable: No Gastrointestinal/Abdominal: Reports: diarrhea Allergies: Coded Allergies: No Known Allergies (Unverified , 04/22/17) Objective Last 24 Hour Vital Signs Date Time Temp Pulse Resp B/P Pulse Ox O2 Delivery O2 Flow Rate FiO2 04/25/17 11:37 97.7 64 20 163/76 100 Room Air 04/25/17 08:57 77 136/77 04/25/17 07:41 97.5 77 20 136/77 97 Room Air 04/25/17 05:18 128/62 04/25/17 04:00 98.6 57 19 128/62 98 04/25/17 00:00 99.1 65 20 132/66 100 Room Air 04/24/17 21:46 163/71 04/24/17 21:46 68 163/71 04/24/17 20:00 99.0 68 18 163/71 98 Room Air 04/24/17 16:01 98.0 54 18 148/72 98 Nasal Cannula 04/24/17 14:30 150/68 04/24/17 12:00 97.7 62 18 150/68 100 Room Air Intake and Output 04/24/17 04/25/17 19:00 07:00 Intake Total 890 ml 550 ml Balance 890 ml 550 ml Intake Oral 840 ml IV Total 50 ml 550 ml # Voids 7 3 # Bowel Movements 3 2 Laboratory Tests 04/25/17 05:00: Sodium Level 145, Potassium Level 2.7*L, Chloride Level 110H, Carbon Dioxide Level 24, Anion Gap 11, Blood Urea Nitrogen 14, Creatinine 1.0, Estimat Glomerular Filtration Rate , Glucose Level 61L, Calcium Level 7.8L, Phosphorus Level 3.0, Magnesium Level 1.6L, Total Bilirubin 0.2, Aspartate Amino Transf ( AST/SGOT) 12, Alanine Aminotransferase (ALT/SGPT) 15, Alkaline Phosphatase 79, Total Protein 5.9L, Albumin 3.0L, Globulin 2.9, Albumin/Globulin Ratio 1.0 Height (Feet): 5 Height (Inches): 11.00 Weight (Pounds): 213 General Appearance: no apparent distress MAEVE RUIZ Apr 25, 2017 11:52
[2017-04-25] MEDS ORDERED: AMLODIPINE BESYL5 MG ORAL (15:16)
[2017-04-25] MEDS ORDERED: CULTURELLE1 EACH ORAL (15:21)
[2017-04-25] MEDS ORDERED: NAMENDA10 MG ORAL (15:22)
[2017-04-25] MEDS ORDERED: TAMSULOSIN HCL0.4 MG ORAL (15:23)
[2017-04-25] MEDS ORDERED: ACETAMINOPHEN325 M1 ORAL (15:25)
[2017-04-25] MEDS ORDERED: CATAPRES0.1 MG ORAL (15:31)
[2017-04-25] MEDS ORDERED: NOVOLOG100 UNIT/3 SUBQ (15:32)
[2017-04-25] MEDS ORDERED: LEVAQUIN250 M1 ORAL (15:34)
[2017-04-25] MEDS ORDERED: LEVEMIR100 UNIT/1 SUBQ (15:37)
--- NOTE | 2017-04-25 15:42 | General Progress Note ---
Assessment/Plan Assessment/Plan 1. Anemia secondary to chronic disease. Anemia workup has been ordered and ferritin pending. Hold off on IV iron at the moment. --> ferritin still pending 2. Sigmoid volvulus potentially, recs per GI service 3. Hyperkalemia, has been seen by Nephrology service. 4. Gastroparesis and ileus. Continue to closely monitor. --> the patient tolerated breakfast Subjective Constitutional: Reports: no symptoms HEENT: Reports: no symptoms Cardiovascular: Reports: no symptoms Respiratory: Reports: no symptoms Gastrointestinal/Abdominal: Reports: no symptoms Genitourinary: Reports: no symptoms Neurologic/Psychiatric: Reports: no symptoms Endocrine: Reports: no symptoms Hematologic/Lymphatic: Reports: anemia Allergies: Coded Allergies: No Known Allergies (Unverified , 04/22/17) Subjective nad Objective Last 24 Hour Vital Signs Date Time Temp Pulse Resp B/P Pulse Ox O2 Delivery O2 Flow Rate FiO2 04/25/17 13:05 163/76 04/25/17 11:58 163/76 04/25/17 11:37 97.7 64 20 163/76 100 Room Air 04/25/17 08:57 77 136/77 04/25/17 07:41 97.5 77 20 136/77 97 Room Air 04/25/17 05:18 128/62 04/25/17 04:00 98.6 57 19 128/62 98 04/25/17 00:00 99.1 65 20 132/66 100 Room Air 04/24/17 21:46 163/71 04/24/17 21:46 68 163/71 04/24/17 20:00 99.0 68 18 163/71 98 Room Air 04/24/17 16:01 98.0 54 18 148/72 98 Nasal Cannula Intake and Output 04/24/17 04/25/17 19:00 07:00 Intake Total 890 ml 550 ml Balance 890 ml 550 ml Intake Oral 840 ml IV Total 50 ml 550 ml # Voids 7 3 # Bowel Movements 3 2 Laboratory Tests 04/25/17 05:00: Sodium Level 145, Potassium Level 2.7*L, Chloride Level 110H, Carbon Dioxide Level 24, Anion Gap 11, Blood Urea Nitrogen 14, Creatinine 1.0, Estimat Glomerular Filtration Rate , Glucose Level 61L, Calcium Level 7.8L, Phosphorus Level 3.0, Magnesium Level 1.6L, Total Bilirubin 0.2, Aspartate Amino Transf ( AST/SGOT) 12, Alanine Aminotransferase (ALT/SGPT) 15, Alkaline Phosphatase 79, Total Protein 5.9L, Albumin 3.0L, Globulin 2.9, Albumin/Globulin Ratio 1.0 Height (Feet): 5 Height (Inches): 11.00 Weight (Pounds): 213 General Appearance: no apparent distress EENT: normal ENT inspection Neck: normal alignment Cardiovascular: normal peripheral pulses Respiratory/Chest: no accessory muscle use Extremities: non-tender Edema: no edema noted Pedal (L), no edema noted Pedal (R) Neurologic: no motor/sensory deficits Skin: warm/dry Sterling Singletary Apr 25, 2017 15:42
[2017-04-25 16:00] VITALS: BP 141/66
--- NOTE | 2017-04-25 18:31 | General Progress Note ---
Assessment/Plan Assessment/Plan Assessment - colonic dysmotility - abd distention - OBS - NIDDM\ - anemia - h/o gastroparesis Recommendations - po diet - OOB - Bowel regimen - check OB - correct electrolytes Subjective Allergies: Coded Allergies: No Known Allergies (Unverified , 04/22/17) Subjective Feels well ate solids no abd pain no N/V (+) BM Objective Last 24 Hour Vital Signs Date Time Temp Pulse Resp B/P Pulse Ox O2 Delivery O2 Flow Rate FiO2 04/25/17 16:00 98.2 60 20 141/66 Room Air 04/25/17 13:05 163/76 04/25/17 11:58 163/76 04/25/17 11:37 97.7 64 20 163/76 100 Room Air 04/25/17 08:57 77 136/77 04/25/17 07:41 97.5 77 20 136/77 97 Room Air 04/25/17 05:18 128/62 04/25/17 04:00 98.6 57 19 128/62 98 04/25/17 00:00 99.1 65 20 132/66 100 Room Air 04/24/17 21:46 163/71 04/24/17 21:46 68 163/71 04/24/17 20:00 99.0 68 18 163/71 98 Room Air Intake and Output 04/24/17 04/25/17 19:00 07:00 Intake Total 890 ml 550 ml Balance 890 ml 550 ml Intake Oral 840 ml IV Total 50 ml 550 ml # Voids 7 3 # Bowel Movements 3 2 Laboratory Tests 04/25/17 05:00: Sodium Level 145, Potassium Level 2.7*L, Chloride Level 110H, Carbon Dioxide Level 24, Anion Gap 11, Blood Urea Nitrogen 14, Creatinine 1.0, Estimat Glomerular Filtration Rate , Glucose Level 61L, Calcium Level 7.8L, Phosphorus Level 3.0, Magnesium Level 1.6L, Total Bilirubin 0.2, Aspartate Amino Transf ( AST/SGOT) 12, Alanine Aminotransferase (ALT/SGPT) 15, Alkaline Phosphatase 79, Total Protein 5.9L, Albumin 3.0L, Globulin 2.9, Albumin/Globulin Ratio 1.0 Height (Feet): 5 Height (Inches): 11.00 Weight (Pounds): 213 Objective WDWN AA man NCAT supple CTA RRR abd typmanitic, soft, NT, no mass (+) edema OBS CYNTHIA SPARROW Apr 25, 2017 18:31
[2017-04-25 19:40] VITALS: BP 130/64
[2017-04-25 19:44] LABS: ANION GAP 9 (5-15); CARBON DIOXIDE 25 mEQ/L (20-30); CHLORIDE 110 mEQ/L (98-107); CREATININE 0.9 mg/dL (0.7-1.2); HEMOLYSIS 5; POTASSIUM 3.7 mEQ/L (3.4-4.9); SODIUM 144 mEQ/L (135-145)
--- NOTE | 2017-04-25 21:45 | Progress Note ---
SUBJECTIVE: The patient is doing well, sitting in the chair continues to be having impairment of cognition. Calm and cooperative. No behavior issues. Compliant with medications. He is able to answer simple questions. However, he has cognitive impairment and psychomotor retardation. MENTAL STATUS EXAMINATION: Alert and oriented to self and place. Mood is neutral. Affect is constricted. Congruent with mood. Thought process is concrete. Thought content, no suicidal or homicidal ideations. ASSESSMENT: 1. Dementia. 2. Depression. PLAN: The patient will be continued with current medication. No medication changes. Greg Gupta M.D. DR: ALEXANDER JOB#: [id number] CC:
--- NOTE | 2017-04-25 21:45 | Consultation ---
DATE OF CONSULTATION: INFECTIOUS DISEASE CONSULTATION CONSULTING PHYSICIAN: Beth Miller M.D. REQUESTING PHYSICIAN: Jose Francisco Chand M.D. REASON FOR CONSULTATION: Urinary tract infection. Recommendation for antibiotics therapy. HISTORY OF PRESENT ILLNESS: The patient is a 76-year-old male, with a history of diabetes, presented with abnormal labs including low potassium and ileus. The patient had no bowel movement for couple of days. He had no fever or chills. No nausea or vomiting. The patient's temperature was found to be 98.1 degrees in the emergency room saturating 98% on room air. The patient was admitted to the hospital for management of ileus and proteinuria and urinary tract infection and I was consulted by the primary care provider for antibiotics treatment for his urinary tract infection. Of note, the patient is a poor historian and cannot provide good history. History was mainly obtained from the medical record. PAST MEDICAL HISTORY: Significant for diabetes, hypertension, and possible dementia. PAST SURGICAL HISTORY: Negative. MEDICATIONS: He is on Namenda, Dulcolax, Ecotrin, multivitamin, Synthroid, hydralazine, Lipitor, Levemir, Norvasc, and Catapres. ALLERGIES: No known drug allergies. SOCIAL HISTORY: He lives in a snf facility. No recent drugs, tobacco, or alcohol. FAMILY HISTORY: Unable to obtain. REVIEW OF SYSTEMS: Unable to obtain at this point. The patient is a poor historian. PHYSICAL EXAMINATION: VITAL SIGNS: Temperature 97.7 degrees, pulse 64, respirations 20, and blood pressure 163/76. Pulse oximetry is 100% on room air. GENERAL: An elderly male, demented, lying in bed, not in acute distress. HEENT: Normocephalic and atraumatic. Pupils reactive to light. Moist oral mucosa. No exudate. NECK: Supple. No lymphadenopathy. CARDIOVASCULAR: Regular rate and rhythm. No murmur. No gallop. LUNGS: Clear bilaterally. No wheezing or rhonchi. Diminished breathing sound at the bases. ABDOMEN: Soft and nontender. Hypoactive bowel sounds. No organomegaly or ascites. EXTREMITIES: No edema or cyanosis. SKIN: No rash or hives. LABORATORY DATA: Labs showed white count of 8.1, hemoglobin of 10.9, and platelet count of 325,000. BUN of 14 and creatinine of 1. Urinalysis showed +3 leukocyte esterase, WBC 15 to 20, and many urine bacteria. MICROBIOLOGY: Urine culture on 04/23/2017 showed E. coli, which is sensitive to ampicillin and Bactrim. Screening for MRSA and VRE, negative. Blood culture on 04/22/2017 was negative. IMAGING: Chest x-ray showed dilated sigmoid colon with possibility of sigmoid volvulus. CT scan of abdomen and pelvis showed moderately dilated and air-filled sigmoid colon. No evidence of volvulus or chronic obstruction. ASSESSMENT AND RECOMMENDATION: 1. Urinary tract infection due to Escherichia coli, resistant to ampicillin and Bactrim. We will start ceftriaxone empiric treatment to treat for seven days. 2. Ileus, improving. Advance diet as directed. Replace electrolytes as needed. GI is following. 3. Diabetes. Recommend tight glycemic control to keep blood glucose between 80 to 120. Beth Miller M.D. DR: CASEY JOB#: [id number] CC:
--- NOTE | 2017-04-28 09:23 | Discharge Summary ---
Discharge Summary Hospital Course Date of Admission Apr 22, 2017 at 23:57 Date of Discharge Apr 25, 2017 at 21:30 Admitting Diagnosis hyperkalemia, possible ileus HPI Mando Soliman is a 76 year old male who was admitted on Apr 22, 2017 at 23:57 for ILEUS Hospital Course dc summary #[id number] Discharge Medications Continued Medications: Acetaminophen* (Acetaminophen 325MG Tablet*) 325 Mg Tablet 650 MG ORAL Q6H PRN for Fever/Headache/Mild Pain, TAB Amlodipine Besylate* (Amlodipine Besylate*) 5 Mg Tablet 5 MG ORAL EVERY 12 HOURS, TAB Ascorbic Acid* (Vitamin C*) 500 Mg Tablet 500 MG ORAL TWICE A DAY, TAB Aspirin* (Aspir 81*) 81 Mg Tablet.dr 81 MG ORAL DAILY, TAB Atorvastatin Calcium* (Lipitor*) 10 Mg Tablet 10 MG ORAL BEDTIME, TAB Clonidine Hcl* (Catapres*) 0.1 Mg Tablet 0.1 MG ORAL EVERY 4 HOURS PRN for SBP > 160, TAB Finasteride* (Proscar*) 5 Mg Tablet 5 MG ORAL DAILY, #30 TAB 0 Refills Hydralazine Hcl* (Hydralazine Hcl*) 50 Mg Tablet 50 MG ORAL EVERY 8 HOURS, TAB Insulin Aspart* (Novolog*) 100 Unit/1 Ml Insuln.pen 0 SUBQ AC+HS, #1 EA 0 Refills Insulin Detemir (Levemir) 100 Unit/1 Ml Vial 39 SUBQ EVERY 12 HOURS, VIAL Lactobacillus Rhamnosus Gg* (Culturelle*) 1 Each Capsule 1 CAP ORAL BID, CAP Levofloxacin* (Levaquin*) 250 Mg Tablet 250 MG ORAL DAILY, #7 TAB Levothyroxine Sodium* (Levothyroxine Sodium*) 25 Mcg Tablet 25 MCG ORAL DAILY, TAB Take in the morning on an empty stomach, at least 30 minutes before food. Memantine Hcl* (Namenda*) 10 Mg Tablet 10 MG ORAL DAILY, TAB Multivitamin With Minerals (Multivitamins With Minerals*) 1 Each Tablet 1 TAB ORAL DAILY, TAB Simethicone* (Simethicone*) 80 Mg Tab.chew 80 MG ORAL BID PRN for GAS PAIN, #20 TAB 0 Refills Tamsulosin Hcl (Tamsulosin Hcl*) 0.4 Mg Cap.er.24h 0.4 MG ORAL BID, CAP Discontinued Medications: Acetaminophen* (Tylenol Extra Strength*) 500 Mg Tablet 500 MG ORAL Q6H PRN for Mild Pain/Temp > 100.5, TAB 0 Refills Acidophilus/Bulgaricus (Floranex Tablet) 1 Each Tablet 1 EACH PO DAILY, TAB Amlodipine Besylate* (Amlodipine Besylate*) 5 Mg Tablet 5 MG ORAL DAILY, TAB Clonidine Hcl* (Catapres*) 0.1 Mg Tablet 0.1 MG ORAL EVERY 8 HOURS, TAB Docusate Sodium* (Docusate Sodium*) 100 Mg Capsule 100 MG ORAL TWICE A DAY, CAP Ferrous Sulfate* (Ferrous Sulfate*) 325 Mg Tablet 325 MG ORAL DAILY, #30 TAB 0 Refills Insulin Aspart* (Novolog*) 100 Unit/1 Ml Insuln.pen 10 SUBQ TID, #1 EA 0 Refills Insulin Aspart* (Novolog*) 100 Unit/1 Ml Insuln.pen 0 SUBQ, #1 EA 0 Refills Insulin Detemir (Levemir) 100 Unit/1 Ml Vial 39 SUBQ BEDTIME, VIAL Metoclopramide Hcl* (Reglan*) 10 Mg Tablet 10 MG ORAL THREE TIMES A DAY PRN for Prn Headache/Temp > 101, TAB Potassium Chloride* (K-Dur*) 20 Meq Tab.er.prt 40 MEQ ORAL DAILY, #7 TAB 0 Refills Tamsulosin Hcl (Tamsulosin Hcl*) 0.4 Mg Cap.er.24h 0.4 MG ORAL BEDTIME, CAP Discharge Condition Upon Discharge: stable Discharge Disposition Patient was discharged to [facility] (04) Discharge Diagnoses: Discharge Instructions Discharge Instructions Special Instructions I have been assigned to complete a D/C Summary on this account. I was not involved in the patient management Kalyn Crowder NP ([place]te[place]) Apr 28, 2017 09:23
--- NOTE | 2017-04-28 23:00 | Discharge Summary 2 SIG ---
DATE OF ADMISSION: 04/22/2017 DATE OF DISCHARGE: 04/25/2017 The patient is admitted under Dr. Chand. REASON FOR ADMISSION: The patient is a 76-year-old male, who was sent to the emergency room for evaluation due to abnormal potassium found on the laboratories. The patient has DNR status. The patient denied fever or chills. No abdominal pain. No diarrhea. The patient has a past medical history significant for diabetes and gastroparesis. Workup in the emergency room revealed no leukocytosis. Stable hemoglobin and hematocrit. BUN 20 and creatinine 1.1. Potassium was 5.3. KUB revealed markedly dilated sigmoid colon, possible sigmoid volvulus. The patient was admitted for further management. ADMITTING DIAGNOSES: Includes: 1. Hyperkalemia. 2. Faecal impaction. 3. Possible ileus. 4. Diabetes mellitus. 5. History of osteoporosis. HOSPITAL STAY: The patient was admitted. GI consult requested. Due to the concern of distended bowels, the patient undergone urgent CT of the abdomen and pelvis, which revealed no evidence of sigmoid volvulus or colonic obstruction. The patient initially was NPO after CT finding, started slowly on diet, and advanced as tolerated. Bowel regimen instituted. The patient had a bowel movement. Able to tolerate diet. Antiemetic provided as needed. The patient was on the IV fluids for hydration. Nephrology followed. Initially, potassium was treated in the emergency room with Kayexalate and potassium dropped, which was repleted. Urinalysis revealed evidence of urinary tract infection. Urine culture grew E. coli. The patient was on antibiotics and continue at the alf facility. Renal parameters and electrolytes were closely monitored and were stable. Potassium prior to discharge 3.7. Renal parameters stable. No leukocytosis. The patient exhibited mild anemia with hemoglobin of 10.9 and hematocrit 33.9. Iron panel stable. Stool OB to be checked in the alf facility. The patient's DNR status has a limited intervention. TSH was within normal limits. Current dose of levothyroxine was continued. Advertising Supervisor followed. Anemia workup was indicative of anemia of chronic disease. Lipid panel was stable. The patient has a history of high cholesterol. No nausea. No vomiting. Psychiatrist seen and evaluated the patient and diagnosed him with dementia and depression. Continue current psychiatric medication. Gastrointestinal also diagnosed the patient with colonic dysmotility. The patient was stable for discharge. DISCHARGE DIAGNOSES: Includes: 1. Hyperkalemia. 2. Obstipation. 3. Colonic dysmotility. 4. History of gastroparesis. 5. Urinary tract infection with E. coli. 6. Hypertension. 7. Anemia of chronic disease. 8. Diabetes. 9. Hypothyroidism. 10. High cholesterol. Of note, blood sugar was treated with sliding scale of insulin and was stable. Hemoglobin A1c 5.2. Blood pressure was stable with current regimen. The patient was stable for discharge. DISCHARGE MEDICATIONS: See medication reconciliation list. Continue antibiotic as outlined in medication reconciliation list. DISCHARGE INSTRUCTIONS: The patient is discharged to alf facility. FOLLOWUP: Follow up with medical doctor at the facility. Jose Francisco Chand M.D. I have been assigned to dictate discharge summary on this account and I was not involved in the patient's management. Kalyn phillipsmaile NJulianPJulian DR: COLBY JOB#: [id number] CC:
== END 2017-04-25 21:30 | DRG 392 ==
LOC: EDBD 20:43 → EMR 21:37 → 4E 23:57 → EDBEDREQ 04-23 00:32
DX: K59.8 Other specified functional intestinal disorders (principal); N39.0 Urinary tract infection, site not specified; F03.90 Unspecified dementia, unspecified severity, without behavioral disturbance, psychotic disturbance, mood disturbance, and anxiety; E87.5 Hyperkalemia; B96.20 Unspecified Escherichia coli [E. coli] as the cause of diseases classified elsewhere; I10 Essential (primary) hypertension; E11.9 Type 2 diabetes mellitus without complications; K31.84 Gastroparesis; D64.9 Anemia, unspecified; M81.0 Age-related osteoporosis without current pathological fracture; D63.8 Anemia in other chronic diseases classified elsewhere; E03.9 Hypothyroidism, unspecified; F32.9 Major depressive disorder, single episode, unspecified; Z66 Do not resuscitate; N40.0 Benign prostatic hyperplasia without lower urinary tract symptoms; E78.5 Hyperlipidemia, unspecified
CPT/HCPCS: 36415; 74000; 74176; 80048; 80053; 80061; 81001; 82140; 82550; 82553; 82607; 82728; 82746; 82962; 83036; 83540; 83550; 83605; 83735; 84100; 84238; 84443; 84484; 84550; 85025; 85044; 86140; 87040; 87081; 87086; 87181; J1815; J8499; S5561

== ENCOUNTER 2018-04-20 16:53 | Inpatient (IN) | payer MEDICARE, MEDICAID ==
[~2018-04-20] VITALS: Ht 180.3 cm; Wt 87.1 kg
[~2018-04-20 16:53] MED LIST: ACETAMINOPHEN325 M1 ORAL; AMLODIPINE BESYL5 MG ORAL; ASPIR 8181 MG ORAL; ATORVASTATIN CA10 MG ORAL; CATAPRES0.1 MG ORAL; CULTURELLE1 EACH ORAL; DOCUSATE SODIU100 MG ORAL; FERROUS SULFAT325 MG ORAL; FLORANEX TABLE1 EAC1 PO; HYDRALAZINE HCL50 MG ORAL; LEVAQUIN250 M1 ORAL; LEVEMIR100 UNIT/1 SUBQ; LEVOTHYROXINE25 MCG ORAL; MULTIVITAMINS1 EAC8 ORAL; NAMENDA10 MG ORAL; NOVOLOG100 UNIT/3 SUBQ; POTASSIUM CHLO20 ME1 ORAL; PROSCAR5 MG ORAL; REGLAN10 MG ORAL; SIMETHICONE80 MG ORAL; TAMSULOSIN HCL0.4 MG ORAL; TYLENOL EXTRA500 MG ORAL; VITAMIN C500 M1 ORAL
[2018-04-20 17:00] VITALS: BP 162/65
[2018-04-20 17:35] LABS: BASOPHILS % (AUTO) 0.7 % (0.0-2.0); EOSINOPHILS % (AUTO) 1.1 % (0.0-3.0); HEMATOCRIT 36.5 % (42.0-52.0); LYMPHOCYTES % (AUTO) 22.4 % (20.0-45.0); MEAN CORPUSCULAR VOLUME 92 FL (80-99); MONOCYTES % (AUTO) 5.3 % (1.0-10.0); NEUTROPHILS % (AUTO) 70.6 % (45.0-75.0); PLATELET COUNT 226 K/UL (150-450); RED BLOOD COUNT 3.96 M/UL (4.70-6.10); RED CELL DISTRIBUTION WIDTH 12.5 % (11.6-14.8); WHITE BLOOD COUNT 7.4 K/UL (4.8-10.8)
--- NOTE | 2018-04-20 17:51 | Emergency Room Report ---
History of Present Illness General Chief Complaint: Abnormal Labs Source: Patient, EMS Present Illness HPI 77-year-old male presents ED for evaluation of abnormal labs. Patient sent in from custodial facility for low potassium. K noted to be 2.7. Upon arrival patient showing no signs of distress. States he feels fine. Denies any chest pain or shortness of breath. Denies any diarrhea. No other aggravating relieving factors. Denies any other associated symptoms Allergies: Coded Allergies: No Known Allergies (Unverified , 04/22/17) Patient History Past Medical History: HTN, CHF, CVA/TIA, other - gastroparesis Past Surgical History: none Pertinent Family History: none Social History: Denies: smoking, alcohol use, drug use Immunizations: UTD Reviewed Nursing Documentation: PMH: Agreed; PSxH: Agreed Nursing Documentation-PMH Hx Cardiac Problems: Yes - HEART FAILURE Hx Hypertension: Yes Hx COPD: No - ANEMIA, HYPOKALEMIA Hx Diabetes: Yes Hx Cancer: No Hx Gastrointestinal Problems: Yes - Gastroparesis Hx Neurological Problems: Yes - Prostatic hyperplasia Hx Cerebrovascular Accident: Yes - R SIDE DEFICIT Review of Systems All Other Systems: negative except mentioned in HPI Physical Exam Vital Signs Date Time Temp Pulse Resp B/P (MAP) Pulse Ox O2 Delivery O2 Flow Rate FiO2 04/20/18 16:46 98.4 68 18 153/67 95 Room Air 98.4 Sp02 EP Interpretation: reviewed, normal General Appearance: no apparent distress, alert, GCS 15, non-toxic Head: normocephalic, atraumatic Eyes: bilateral eye normal inspection, bilateral eye PERRL ENT: hearing grossly normal, normal pharynx, no angioedema, normal voice Neck: full range of motion, supple/symm/no masses Respiratory: chest non-tender, lungs clear, normal breath sounds, speaking full sentences Cardiovascular #1: regular rate, rhythm, no edema Cardiovascular #2: 2+ carotid (R), 2+ carotid (L), 2+ radial (R), 2+ radial (L) , 2+ dorsalis pedis (R), 2+ dorsalis pedis (L) Gastrointestinal: normal bowel sounds, non tender, soft, non-distended, no guarding, no rebound Rectal: deferred Genitourinary: normal inspection, no CVA tenderness Musculoskeletal: back normal, gait/station normal, normal range of motion, non- tender Neurologic: alert, oriented x3, responsive, motor strength/tone normal, sensory intact, speech normal Psychiatric: judgement/insight normal, memory normal, mood/affect normal, no suicidal/homicidal ideation Reflexes: 3+ bicep (R), 3+ bicep (L), 3+ tricep (R), 3+ tricep (L), 3+ knee (R) , 3+ knee (L) Skin: normal color, no rash, warm/dry, well hydrated Lymphatic: no adenopathy Medical Decision Making Diagnostic Impression: Primary Impression: Hypernatremia Additional Impression: Hypokalemia ER Course Hospital Course 77-year-old male referred for low potassium Differential diagnoses include: hypokalemia, dehydration, hyperkalemia Clinical course Patient placed on stretcher. on ranch rider. After initial history and physical I ordered labs, EKG, CXR labs reviewed- potassium 3.0, Na 147. hb/hbct stable, no leukocytosis UA pending EKG - NSR, no acute ischemic changes inteprreted by me, no Uwaves or significant arrythhmia CXR - unremarkable Case discussed with Dr. Chand and he agreed to accept the patient to his service for further care and support I. I feel this is a highly complex case requiring extensive working including EKG/Rhythm strip, Xray/CT/US, Blood/urine lab work, repeat exams while in ED, and administration of strong opiates/narcotics for pain control, admission to hospital or close patient follow up. Diagnosis - hypernatremia, Hypokalemia admitted to telemetry in serious condition Labs Test 04/20/18 17:04 White Blood Count 7.4 K/UL (4.8-10.8) Red Blood Count 3.96 M/UL (4.70-6.10) Hemoglobin 12.0 G/DL (14.2-18.0) Hematocrit 36.5 % (42.0-52.0) Mean Corpuscular Volume 92 FL (80-99) Mean Corpuscular Hemoglobin 30.2 PG (27.0-31.0) Mean Corpuscular Hemoglobin Concent 32.8 G/DL (32.0-36.0) Red Cell Distribution Width 12.5 % (11.6-14.8) Platelet Count 226 K/UL (150-450) Mean Platelet Volume 7.1 FL (6.5-10.1) Neutrophils (%) (Auto) 70.6 % (45.0-75.0) Lymphocytes (%) (Auto) 22.4 % (20.0-45.0) Monocytes (%) (Auto) 5.3 % (1.0-10.0) Eosinophils (%) (Auto) 1.1 % (0.0-3.0) Basophils (%) (Auto) 0.7 % (0.0-2.0) Sodium Level 147 MMOL/L (136-145) Potassium Level 3.0 MMOL/L (3.5-5.1) Chloride Level 110 MMOL/L (98-107) Carbon Dioxide Level 31 MMOL/L (21-32) Anion Gap 6 mmol/L (5-15) Blood Urea Nitrogen 16 mg/dL (7-18) Creatinine 1.0 MG/DL (0.55-1.30) Estimat Glomerular Filtration Rate mL/min (>60) Glucose Level 130 MG/DL (74-106) Calcium Level 8.9 MG/DL (8.5-10.1) Total Bilirubin 0.3 MG/DL (0.2-1.0) Aspartate Amino Transf (AST/SGOT) 19 U/L (15-37) Alanine Aminotransferase (ALT/SGPT) 34 U/L (12-78) Alkaline Phosphatase 94 U/L (46-116) Total Creatine Kinase 99 U/L (26-308) Creatine Kinase MB 1.9 NG/ML (0.0-3.6) Creatine Kinase MB Relative Index 1.9 Troponin I 0.013 ng/mL (0.000-0.056) Total Protein 7.7 G/DL (6.4-8.2) Albumin 3.2 G/DL (3.4-5.0) Globulin 4.5 g/dL Albumin/Globulin Ratio 0.7 (1.0-2.7) EKG Diagnostic Results Rate: normal Rhythm: other - 1st degree av block ST Segments: no acute changes ASA given to the pt in ED: No Rhythm Strip Diag. Results EP Interpretation: yes Rhythm: NSR, no PVC's, no ectopy Chest X-Ray Diagnostic Results Chest X-Ray Diagnostic Results : Chest X-Ray Ordered: Yes # of Views/Limited/Complete: 1 View Indication: Other - hypokalemia EP Interpretation: Yes Interpretation: no consolidation, no effusion, no pneumothorax, no acute cardiopulmonary disease, other - cardiomegaly Impression: No acute disease Electronically Signed by: Electronically signed by Carrington Avila MD Last Vital Signs Date Time Temp Pulse Resp B/P (MAP) Pulse Ox O2 Delivery O2 Flow Rate FiO2 04/20/18 17:00 60 16 162/65 100 Room Air 04/20/18 16:46 98.4 98.4 Status: improved Disposition: ADMITTED INPATIENT Condition: Serious Carrington Avila MD Apr 20, 2018 17:51
[2018-04-20 18:06] LABS: ANION GAP 6 mmol/L (5-15); BLOOD UREA NITROGEN 16 mg/dL (7-18); CALCIUM 8.9 MG/DL (8.5-10.1); CARBON DIOXIDE 31 MMOL/L (21-32); CHLORIDE 110 MMOL/L (98-107); SODIUM 147 MMOL/L (136-145)
[2018-04-20 18:19] LABS: ALANINE AMINOTRANSFERASE 34 U/L (12-78); ALBUMIN 3.2 G/DL (3.4-5.0); ALBUMIN/GLOBULIN RATIO 0.7 (1.0-2.7); ALKALINE PHOSPHATASE 94 U/L (46-116); ASPARTATE AMINO TRANSFERASE 19 U/L (15-37); BILIRUBIN,TOTAL 0.3 MG/DL (0.2-1.0); CKMB 1.9 NG/ML (0.0-3.6); CREATINE KINASE 99 U/L (26-308)
[2018-04-20] MEDS ORDERED: POTASSIUM CHLO20 ME3 PO (18:39)
[2018-04-20] MEDS ORDERED: MIRTAZAPINE15 MG ORAL (18:39)
[2018-04-20] MEDS ORDERED: SPIRONOLACTONE100 MG ORAL (18:39)
[2018-04-20] MEDS ORDERED: SENNA8.6 M2 PO (18:39)
[2018-04-20] MEDS ORDERED: NOVOLOG100 UNIT/3 SUBQ (18:39)
[2018-04-20 19:09] VITALS: BP 169/68
[2018-04-20 19:39] VITALS: BP 147/71
[2018-04-20 20:00] VITALS: BP 165/68
[2018-04-20] MEDS ORDERED: Simethicone 80mg tab ORAL PRN (22:30)
[2018-04-21] VITALS: BP 132/69
[2018-04-21 04:00] VITALS: BP 130/68
[2018-04-21] MEDS: NovoLOG Insulin Flexpen SUBQ SCH ×4 (06:09→21:00)
[2018-04-21] MEDS: Levothyroxine 25mcg tab ORAL SCH (06:15)
[2018-04-21] MEDS: HydrALAZINE 50mg tab ORAL SCH ×2 (06:16→13:52)
[2018-04-21] MEDS: Lactobacillus-GG tablet ORAL SCH ×2 (08:10→16:58)
[2018-04-21] MEDS: Multivitamin w/Minerals tab ORAL SCH (08:10)
[2018-04-21] MEDS: Spironolactone 50mg tab ORAL SCH (08:10)
[2018-04-21] MEDS: Tamsulosin 0.4mg cap ORAL SCH ×2 (08:10→16:58)
[2018-04-21] MEDS: Memantine 10mg tab ORAL SCH (08:10)
[2018-04-21] MEDS: Aspirin EC 81mg tab ORAL SCH (08:10)
[2018-04-21 08:12] VITALS: BP 100/45
[2018-04-21 08:25] LABS: BASOPHILS % (AUTO) 0.8 % (0.0-2.0); EOSINOPHILS % (AUTO) 1.3 % (0.0-3.0); HEMATOCRIT 32.2 % (42.0-52.0); HEMOGLOBIN 10.8 G/DL (14.2-18.0); LYMPHOCYTES % (AUTO) 24.4 % (20.0-45.0); MEAN CORPUSCULAR VOLUME 91 FL (80-99); MONOCYTES % (AUTO) 6.6 % (1.0-10.0); NEUTROPHILS % (AUTO) 66.9 % (45.0-75.0); PLATELET COUNT 212 K/UL (150-450); RED BLOOD COUNT 3.53 M/UL (4.70-6.10); RED CELL DISTRIBUTION WIDTH 12.2 % (11.6-14.8); WHITE BLOOD COUNT 6.4 K/UL (4.8-10.8)
[2018-04-21] MEDS ORDERED: Ascorbic Acid 500mg tab ORAL SCH (09:00)
[2018-04-21] MEDS ORDERED: Levothyroxine 25mcg tab ORAL SCH (09:00)
--- NOTE | 2018-04-21 09:56 | Cardiac Electrophysiology PN ---
Subjective Subjective Dictated [id number] Objective Last 24 Hour Vital Signs Date Time Temp Pulse Resp B/P (MAP) Pulse Ox O2 Delivery O2 Flow Rate FiO2 04/21/18 08:12 98.3 60 18 100/45 (63) 97 98.3 04/21/18 08:11 60 100/45 04/21/18 07:46 60 04/21/18 07:21 Room Air 04/21/18 06:16 139/71 04/21/18 04:02 60 04/21/18 04:00 98.2 63 18 130/68 (88) 97 98.2 04/21/18 00:00 98.1 70 19 132/69 (90) 98 98.1 04/20/18 23:39 67 04/20/18 22:02 60 04/20/18 22:00 Room Air 04/20/18 20:25 78 04/20/18 20:05 98.0 66 14 147/71 100 Room Air 98.0 04/20/18 20:00 98.3 72 18 165/68 (100) 95 98.3 04/20/18 19:39 98.0 66 14 147/71 100 Room Air 98.0 04/20/18 19:27 169/68 04/20/18 19:09 98.0 68 18 169/68 100 Room Air 98.0 04/20/18 17:00 60 16 162/65 100 Room Air 04/20/18 16:46 98.4 68 18 153/67 95 Room Air 98.4 Intake and Output 04/20/18 04/21/18 19:00 07:00 Intake Total 0 ml 240 ml Output Total 200 ml Balance 0 ml 40 ml Intake Oral 0 ml 240 ml Output Urine Total 200 ml # Voids 1 # Bowel Movements 1 Laboratory Tests Test 04/20/18 17:04 04/21/18 07:45 White Blood Count 7.4 K/UL (4.8-10.8) 6.4 K/UL (4.8-10.8) Red Blood Count 3.96 M/UL (4.70-6.10) L 3.53 M/UL (4.70-6.10) L Hemoglobin 12.0 G/DL (14.2-18.0) L 10.8 G/DL (14.2-18.0) L Hematocrit 36.5 % (42.0-52.0) L 32.2 % (42.0-52.0) L Mean Corpuscular Volume 92 FL (80-99) 91 FL (80-99) Mean Corpuscular Hemoglobin 30.2 PG (27.0-31.0) 30.6 PG (27.0-31.0) Mean Corpuscular Hemoglobin Concent 32.8 G/DL (32.0-36.0) 33.5 G/DL (32.0-36.0) Red Cell Distribution Width 12.5 % (11.6-14.8) 12.2 % (11.6-14.8) Platelet Count 226 K/UL (150-450) 212 K/UL (150-450) Mean Platelet Volume 7.1 FL (6.5-10.1) 7.5 FL (6.5-10.1) Neutrophils (%) (Auto) 70.6 % (45.0-75.0) 66.9 % (45.0-75.0) Lymphocytes (%) (Auto) 22.4 % (20.0-45.0) 24.4 % (20.0-45.0) Monocytes (%) (Auto) 5.3 % (1.0-10.0) 6.6 % (1.0-10.0) Eosinophils (%) (Auto) 1.1 % (0.0-3.0) 1.3 % (0.0-3.0) Basophils (%) (Auto) 0.7 % (0.0-2.0) 0.8 % (0.0-2.0) Sodium Level 147 MMOL/L (136-145) H Potassium Level 3.0 MMOL/L (3.5-5.1) L Chloride Level 110 MMOL/L (98-107) H Carbon Dioxide Level 31 MMOL/L (21-32) Anion Gap 6 mmol/L (5-15) Blood Urea Nitrogen 16 mg/dL (7-18) Creatinine 1.0 MG/DL (0.55-1.30) Estimat Glomerular Filtration Rate mL/min (>60) Glucose Level 130 MG/DL (74-106) H Calcium Level 8.9 MG/DL (8.5-10.1) Total Bilirubin 0.3 MG/DL (0.2-1.0) Aspartate Amino Transf (AST/SGOT) 19 U/L (15-37) Alanine Aminotransferase (ALT/SGPT) 34 U/L (12-78) Alkaline Phosphatase 94 U/L (46-116) Total Creatine Kinase 99 U/L (26-308) Creatine Kinase MB 1.9 NG/ML (0.0-3.6) Creatine Kinase MB Relative Index 1.9 Troponin I 0.013 ng/mL (0.000-0.056) Total Protein 7.7 G/DL (6.4-8.2) Albumin 3.2 G/DL (3.4-5.0) L Globulin 4.5 g/dL Albumin/Globulin Ratio 0.7 (1.0-2.7) L Cedric Bernard MD Apr 21, 2018 09:56
[2018-04-21] MEDS: Levemir Flexpen SUBQ SCH ×2 (11:30→13:40)
--- NOTE | 2018-04-21 12:01 | Consultation ---
History of Present Illness General Date patient seen: Apr 21, 2018 Chief Complaint: Abnormal Labs Present Illness HPI 77-year-old male with hx of dementia and mdd presents ED for evaluation of abnormal labs. the pt was asleep, I was able to wake him up he was alert and oriented however was a poor historian. He has cognitive impairment. he is on psych meds. He has anxiety and insomnia, Allergies: Coded Allergies: No Known Allergies (Unverified , 04/22/17) Medication History Scheduled Amlodipine Besylate* (Amlodipine Besylate*), 5 MG ORAL EVERY 12 HOURS, (Reported ) Ascorbic Acid* (Vitamin C*), 500 MG ORAL TWICE A DAY, (Reported) Aspirin* (Aspir 81*), 81 MG ORAL DAILY, (Reported) Atorvastatin Calcium* (Lipitor*), 10 MG ORAL BEDTIME, (Reported) Finasteride* (Proscar*), 5 MG ORAL DAILY, (Reported) Hydralazine Hcl* (Hydralazine Hcl*), 50 MG ORAL EVERY 8 HOURS, (Reported) Insulin Aspart* (Novolog*), 0 SUBQ AC+HS, (Reported) Insulin Aspart* (Novolog*), 0 SUBQ AC+HS, (Reported) Insulin Detemir (Levemir), 16 UNIT SUBQ TID, (Reported) Lactobacillus Rhamnosus Gg* (Culturelle*), 1 CAP ORAL BID, (Reported) Levofloxacin* (Levaquin*), 250 MG ORAL DAILY, (Reported) Levothyroxine Sodium* (Levothyroxine Sodium*), 25 MCG ORAL DAILY, (Reported) Memantine Hcl* (Namenda*), 10 MG ORAL DAILY, (Reported) Mirtazapine* (Remeron*), 15 MG ORAL BEDTIME, (Reported) Multivitamin With Minerals (Multivitamins With Minerals*), 1 TAB ORAL DAILY, ( Reported) Potassium Chloride (Potassium Chloride), 20 MEQ PO DAILY, (Reported) Sennosides (Senna), 8.6 MG PO HS, (Reported) Spironolactone* (Spironolactone*), 25 MG ORAL DAILY, (Reported) Tamsulosin Hcl (Tamsulosin Hcl*), 0.4 MG ORAL BID, (Reported) Scheduled PRN Acetaminophen* (Acetaminophen 325MG Tablet*), 650 MG ORAL Q6H PRN for Fever/ Headache/Mild Pain, (Reported) Clonidine Hcl* (Catapres*), 0.1 MG ORAL EVERY 4 HOURS PRN for SBP > 160, ( Reported) Simethicone* (Simethicone*), 80 MG ORAL BID PRN for GAS PAIN, (Reported) Patient History Limited by: medical condition History Provided By: Patient, Medical Record, PMD Healthcare decision maker Resuscitation status Do Not Resuscitate Advanced Directive on File No Past Medical/Surgical History Past Medical/Surgical History: (1) Hyperkalemia (2) Gastroparesis (3) UTI (urinary tract infection) (4) Diabetes mellitus (5) Hypokalemia (6) Hypernatremia (7) Heart block AV first degree (8) Heart block AV second degree Review of Systems Psychiatric: Reports: prior hx, anxiety, depressed feelings, emotional problems Physical Exam General Appearance: no apparent distress, alert Neurologic: oriented x 3, responsive, depressed affect Last 24 Hour Vital Signs Date Time Temp Pulse Resp B/P (MAP) Pulse Ox O2 Delivery O2 Flow Rate FiO2 04/21/18 08:12 98.3 60 18 100/45 (63) 97 98.3 04/21/18 08:11 60 100/45 04/21/18 07:46 60 04/21/18 07:21 Room Air 04/21/18 06:16 139/71 04/21/18 04:02 60 04/21/18 04:00 98.2 63 18 130/68 (88) 97 98.2 04/21/18 00:00 98.1 70 19 132/69 (90) 98 98.1 04/20/18 23:39 67 04/20/18 22:02 60 04/20/18 22:00 Room Air 04/20/18 20:25 78 04/20/18 20:05 98.0 66 14 147/71 100 Room Air 98.0 04/20/18 20:00 98.3 72 18 165/68 (100) 95 98.3 04/20/18 19:39 98.0 66 14 147/71 100 Room Air 98.0 04/20/18 19:27 169/68 04/20/18 19:09 98.0 68 18 169/68 100 Room Air 98.0 04/20/18 17:00 60 16 162/65 100 Room Air 04/20/18 16:46 98.4 68 18 153/67 95 Room Air 98.4 Intake and Output 04/20/18 04/21/18 19:00 07:00 Intake Total 0 ml 240 ml Output Total 200 ml Balance 0 ml 40 ml Intake Oral 0 ml 240 ml Output Urine Total 200 ml # Voids 1 # Bowel Movements 1 Laboratory Tests Test 04/20/18 17:04 04/21/18 07:45 White Blood Count 7.4 K/UL (4.8-10.8) 6.4 K/UL (4.8-10.8) Red Blood Count 3.96 M/UL (4.70-6.10) L 3.53 M/UL (4.70-6.10) L Hemoglobin 12.0 G/DL (14.2-18.0) L 10.8 G/DL (14.2-18.0) L Hematocrit 36.5 % (42.0-52.0) L 32.2 % (42.0-52.0) L Mean Corpuscular Volume 92 FL (80-99) 91 FL (80-99) Mean Corpuscular Hemoglobin 30.2 PG (27.0-31.0) 30.6 PG (27.0-31.0) Mean Corpuscular Hemoglobin Concent 32.8 G/DL (32.0-36.0) 33.5 G/DL (32.0-36.0) Red Cell Distribution Width 12.5 % (11.6-14.8) 12.2 % (11.6-14.8) Platelet Count 226 K/UL (150-450) 212 K/UL (150-450) Mean Platelet Volume 7.1 FL (6.5-10.1) 7.5 FL (6.5-10.1) Neutrophils (%) (Auto) 70.6 % (45.0-75.0) 66.9 % (45.0-75.0) Lymphocytes (%) (Auto) 22.4 % (20.0-45.0) 24.4 % (20.0-45.0) Monocytes (%) (Auto) 5.3 % (1.0-10.0) 6.6 % (1.0-10.0) Eosinophils (%) (Auto) 1.1 % (0.0-3.0) 1.3 % (0.0-3.0) Basophils (%) (Auto) 0.7 % (0.0-2.0) 0.8 % (0.0-2.0) Sodium Level 147 MMOL/L (136-145) H Potassium Level 3.0 MMOL/L (3.5-5.1) L Chloride Level 110 MMOL/L (98-107) H Carbon Dioxide Level 31 MMOL/L (21-32) Anion Gap 6 mmol/L (5-15) Blood Urea Nitrogen 16 mg/dL (7-18) Creatinine 1.0 MG/DL (0.55-1.30) Estimat Glomerular Filtration Rate mL/min (>60) Glucose Level 130 MG/DL (74-106) H Calcium Level 8.9 MG/DL (8.5-10.1) Total Bilirubin 0.3 MG/DL (0.2-1.0) Aspartate Amino Transf (AST/SGOT) 19 U/L (15-37) Alanine Aminotransferase (ALT/SGPT) 34 U/L (12-78) Alkaline Phosphatase 94 U/L (46-116) Total Creatine Kinase 99 U/L (26-308) Creatine Kinase MB 1.9 NG/ML (0.0-3.6) Creatine Kinase MB Relative Index 1.9 Troponin I 0.013 ng/mL (0.000-0.056) Total Protein 7.7 G/DL (6.4-8.2) Albumin 3.2 G/DL (3.4-5.0) L Globulin 4.5 g/dL Albumin/Globulin Ratio 0.7 (1.0-2.7) L Height (Feet): 5 Height (Inches): 11.00 Weight (Pounds): 181 Medications Current Medications Medications (Trade) Dose Ordered Sig/Kevin Route PRN Reason Start Time Stop Time Status Last Admin Dose Admin Acetaminophen (Tylenol) 650 mg Q6H PRN ORAL Fever/Headache/Mild Pain 04/20/18 22:30 05/20/18 22:29 Amlodipine Besylate (Norvasc) 5 mg EVERY 12 HOURS ORAL 04/21/18 09:00 05/21/18 08:59 Ascorbic Acid (Vitamin C) 500 mg TWICE A DAY ORAL 04/21/18 09:00 05/21/18 08:59 04/21/18 08:10 Aspirin (Ecotrin) 81 mg DAILY ORAL 04/21/18 09:00 05/21/18 08:59 04/21/18 08:10 Atorvastatin Calcium (Lipitor) 40 mg BEDTIME ORAL 04/21/18 21:00 05/21/18 20:59 Clonidine HCl (Catapres Tab) 0.1 mg EVERY 4 HOURS PRN ORAL SBP > 160 04/20/18 22:30 05/20/18 22:29 Dextrose (Dextrose 50%) 25 ml STAT PRN IV Hypoglycemia 04/20/18 23:30 05/20/18 23:29 Dextrose (Dextrose 50%) 50 ml STAT PRN IV Hypoglycemia 04/20/18 23:30 05/20/18 23:29 Finasteride (Proscar) 5 mg DAILY ORAL 04/21/18 09:00 05/21/18 08:59 04/21/18 08:10 Hydralazine HCl (Apresoline) 50 mg EVERY 8 HOURS ORAL 04/21/18 06:00 05/21/18 05:59 04/21/18 06:16 Insulin Aspart (NovoLOG) BEFORE MEALS AND HS SUBQ 04/21/18 06:30 05/21/18 06:29 04/21/18 11:15 Insulin Detemir (Levemir) 16 units TIAC SUBQ 04/21/18 06:30 05/21/18 06:29 UNV Lactobacillus Acidophilus (Culturelle) 1 tab BID ORAL 04/21/18 09:00 05/21/18 08:59 04/21/18 08:10 Levofloxacin (Levaquin) 250 mg DAILY ORAL 04/21/18 09:00 04/28/18 08:59 04/21/18 08:10 Levothyroxine Sodium (Synthroid) 25 mcg DAILY@0600 ORAL 04/21/18 06:00 05/21/18 05:59 04/21/18 06:15 Memantine (Namenda) 10 mg DAILY ORAL 04/21/18 09:00 05/21/18 08:59 04/21/18 08:10 Mirtazapine (Remeron) 15 mg BEDTIME ORAL 04/21/18 21:00 05/21/18 20:59 Multivitamins Therapeutic (Therapeutic Multivitamin) 1 ea DAILY ORAL 04/21/18 09:00 05/21/18 08:59 04/21/18 08:10 Potassium Chloride (K-Dur) 20 meq DAILY ORAL 04/21/18 09:00 05/21/18 08:59 04/21/18 08:11 Sennosides (Senokot) 1 tab BEDTIME ORAL 04/21/18 21:00 05/21/18 20:59 Simethicone (Mylicon) 80 mg BID PRN ORAL GAS PAIN 04/20/18 22:30 05/20/18 22:29 Spironolactone (Aldactone) 25 mg DAILY ORAL 04/21/18 09:00 05/21/18 08:59 04/21/18 08:10 Tamsulosin HCl (Flomax) 0.4 mg BID ORAL 04/21/18 09:00 05/21/18 08:59 04/21/18 08:10 Assessment/Plan Assessment/Plan MDD Anxiety insomnia Dementia -remeron 15mg qhs -provided Greg Escamilla MD Apr 21, 2018 12:01
--- NOTE | 2018-04-21 12:09 | Diagnostic Imaging Report ---
Indication: Chest pain Technique: XRAY Chest 1v Comparison: None Findings: Heart is enlarged. Mediastinal contours are sharp. There is no focal airspace consolidation, pleural effusion or pneumothorax. No acute osseous abnormality is identified. There is prominent colonic gas partially visualized in the upper abdomen, with appearance similar to that of prior abdominal radiograph and abdominal CT of April 2017. IMPRESSION: Cardiomegaly. No focal consolidation, pleural effusion or pneumothorax. Prominent colonic loops partially visualized in the upper abdomen, with appearance similar to abdominal x-ray and CT of April 2017. Consider dedicated imaging of the abdomen (x-ray or CT) as clinically indicated, especially if there is abdominal pain. Study obtained via the emergency department however patient admitted to the hospital at time of dictation of the final report.
[2018-04-21 12:17] VITALS: BP 118/69
--- NOTE | 2018-04-21 13:00 | Consultation ---
DATE OF CONSULTATION: 04/21/2018 CARDIOLOGY CONSULTATION CONSULTING PHYSICIAN: Cedric Bernard M.D. REFERRING PHYSICIAN: Jose Francisco Chand M.D. REASON FOR CONSULTATION: Bradycardia and heart block. HISTORY OF PRESENT ILLNESS: The patient is a 77-year-old gentleman, who with history of hypertension, congestive heart failure, history of CVA as well as gastroparesis, who was brought to the emergency room for hypokalemia with a potassium of 2.7. The patient had no sign of distress in the emergency room and did not have any chest pain or shortness of breath. The patient however was found to be bradycardic with evidence of type 1 AV block as well as Mobitz type 1 second-degree AV block as well as 2:1 AV block. Cardiac electrophysiology consultation was obtained for further evaluation and management. PAST MEDICAL HISTORY: As mentioned above. FAMILY HISTORY: Noncontributory. SOCIAL HISTORY: He lives in [facility]. Does not smoke or drink alcohol. REVIEW OF SYSTEMS: Performed and was negative other than what was mentioned in the history of present illness. PHYSICAL EXAMINATION: VITAL SIGNS: Blood pressure is 100/45, pulse is 50, respirations 18, and he is afebrile. HEAD AND NECK: Showed no JVD or carotid bruit. LUNGS: Clear. CARDIOVASCULAR: Shows regular S1 and S2 with no gallop or murmur. ABDOMEN: Soft. EXTREMITIES: No pitting edema. LABORATORY AND DIAGNOSTIC DATA: Labs show white count of 6.4, hemoglobin 10.8, hematocrit 32.2, and platelet count 212. Sodium 147, potassium 3.0, BUN of 16, creatinine of 1. Troponin is negative. His telemetry strips show sinus rhythm with first-degree AV block as well as sinus rhythm with episodes of 2:1 AV block. ASSESSMENT AND PLAN: 1. First-degree and Mobitz type 1 as well as 2:1 AV block. Avoid any AV jackson blocking agents. We will get an echocardiogram to evaluate for ejection fraction and wall motion abnormality. 2. Hyperlipidemia on Lipitor 40 mg daily. 3. Hypertension, on Norvasc 5 mg b.i.d. 4. Severe hypokalemia. Potassium was replaced. The patient was placed on Aldactone. 5. Diabetes on insulin. 6. Hypothyroidism on Synthroid. Thank you very much, Dr. Chand, for allowing me to participate in the care of this patient. Please do not hesitate to contact me for any questions regarding my evaluation. Cedric Bernard M.D. DR: MARYAN JOB#: [id number] CC:
--- NOTE | 2018-04-21 13:54 | Cardiology Report ---
APPROVED REPORT EXAM: Two-dimensional and M-mode echocardiogram with Doppler and color Doppler. INDICATION Bradycardia M-Mode DIMENSIONS IVSd1.3 (0.7-1.1cm)Left Atrium (MM)3.9 (1.6-4.0cm) LVDd4.3 (3.5-5.6cm)Aortic Root3.3 (2.0-3.7cm) PWd1.6 (0.7-1.1cm)Aortic Cusp Exc.1.9 (1.5-2.0cm) LVDs2.8 (2.5-4.0cm) PWs1.7 cm Normal left ventricular chamber size, hyperdynamic systolic function and wall motion. Left ventricular ejection fraction estimated to be 70-75 %. No evidence of left ventricular hypertrophy. No evidence of pericardial or pleural effusion. Right cardiac chamber sizes are within normal limits. Mild left atrial enlargement by 2D. Focal aortic valve sclerosis with adequate cusp excursion. Thickened mitral valve leaflets with normal excursion. Mild mitral annulus and aortic root calcification. Pulmonic valve not well visualized. Normal tricuspid valve structure. IVC is not obtainable. A color flow and spectral Doppler study was performed and revealed: No aortic regurgitation. Trace mitral regurgitation. Mitral diastolic function not obtainable due to A-FIB. Evidence for cavity obliteration No tricuspid regurgitation.
--- NOTE | 2018-04-21 14:01 | Cardiology Report ---
APPROVED REPORT EKG Measurement Heart [id number] Sinus rhythm with 1st degree AV block Cannot rule out Anterior infarct, age undetermined Abnormal ECG
[2018-04-21 16:00] VITALS: BP 113/55
--- NOTE | 2018-04-21 16:15 | Consultation ---
Consult Note Consult Note Asked to eval for abnormal electroltes 77-year-old male presents ED for evaluation of abnormal labs. Patient sent in from group home facility for low potassium. K noted to be 2.7. Upon arrival patient showing no signs of distress. States he feels fine. Denies any chest pain or shortness of breath. Denies any diarrhea. No other aggravating relieving factors. Denies any other associated symptoms No Known Allergies (Unverified , 04/22/17) Past Medical History: HTN, CHF, CVA/TIA, other - gastroparesis Hx Cardiac Problems: Yes - HEART FAILURE Hx Hypertension: Yes - ANEMIA, HYPOKALEMIA Hx Diabetes: Yes Hx Gastrointestinal Problems: Yes - Gastroparesis Hx Neurological Problems: Yes - Prostatic hyperplasia Hx Cerebrovascular Accident: Yes - R SIDE DEFICIT examined- data reviewed poor historian Assessment/Plan HypoKalemia- HTN HypoThyroidism Anemia HyperLipemia 1st Degree Av block h/o CVA Adjust BP meds- K supplement Anemia gonzalez PPIs monitor lytes 2D echo UA NS Herve Miranda MD Apr 21, 2018 16:15
[2018-04-21] MEDS ORDERED: Sodium Chloride 500ML 500 ML IV ONE (16:30)
[2018-04-21 18:11] LABS: APPEARANCE,URINE CLOUDY; BILIRUBIN, URINE NEGATIVE (NEGATIVE); GLUCOSE, URINE (UA) NEGATIVE (NEGATIVE); KETONES,URINE NEGATIVE (NEGATIVE); LEUKOCYTE ESTERASE ,URINE 3+ (NEGATIVE); NITRITE,URINE POSITIVE (NEGATIVE); PH,URINE 5 (4.5-8.0); PROTEIN,URINE 2+ (NEGATIVE); UROBILINOGEN,URINE NORMAL MG/DL (0.0-1.0)
[2018-04-21 18:12] LABS: COLOR,URINE YELLOW
[2018-04-21 20:00] VITALS: BP 140/60
[2018-04-21] MEDS: Sennosides 8.6mg ORAL SCH (21:00)
[2018-04-21] MEDS: Atorvastatin 20mg tab ORAL SCH (21:23)
[2018-04-21] MEDS: HydrALAZINE 25mg tab ORAL SCH (21:32)
[2018-04-21] MEDS ORDERED: HydrALAZINE 25mg tab ORAL SCH (22:00)
--- NOTE | 2018-04-21 22:15 | History and Physical Report ---
DATE OF ADMISSION: 04/20/2018 HISTORY OF PRESENT ILLNESS: The [facility], admitted for initially potassium of 2.7 at the penitentiary. He was treated at the [facility], admitted for basically hypokalemia as well as natremia. The patient is otherwise a poor historian. Status post stroke x2. The patient denies nausea, vomiting, or diarrhea. No fever or chills. Denies palpitation or shortness of breath. Denies cough. Again, he is a poor historian. PAST MEDICAL HISTORY: Status post CVA with right-sided paresis, CAD status post PA, history of heart block with first-degree AV block, history of gastroparesis, NIDDM, hypertension, hypothyroidism, depression, constipation, and BPH. PAST SURGICAL HISTORY: The patient had appendectomy. ALLERGIES: No known allergies. MEDICATIONS: Norvasc, aspirin, Lipitor, clonidine, finasteride, hydralazine, insulin, Levoxyl, Namenda, mirtazapine, spironolactone, Flomax, Senokot, and potassium tablets. FAMILY HISTORY: Noncontributory. SOCIAL HISTORY: He has history of smoking. Denies alcohol or street drugs. Comes from a penitentiary. REVIEW OF SYSTEMS: HEENT: Denies headaches. RESPIRATORY: Denies shortness of breath. Denies cough. CARDIOVASCULAR: Denies chest pain. GASTROINTESTINAL: Denies nausea, vomiting, or diarrhea. EXTREMITIES: Denies pain. CENTRAL NERVOUS SYSTEM: Denies change in vision or speech pattern. PHYSICAL EXAMINATION: VITAL SIGNS: Temperature 98.3 degrees, pulse is 60, and blood pressure 100/45. HEENT: PERRLA. NECK: Supple. No lymphadenopathy. CHEST: Clear to auscultation. CARDIOVASCULAR: Regular rate and rhythm. GASTROINTESTINAL: Soft, nontender, and nondistended. No organomegaly. EXTREMITIES: No edema. NEUROLOGIC: He does have contractures and right-sided weakness. Oriented to name. LABORATORY AND DIAGNOSTIC DATA: Sodium 147, potassium 3, BUN of 16, creatinine 1, and glucose of 130. WBC 7.4, hemoglobin 12, and platelets of 226. ASSESSMENT AND PLAN: Electrolyte imbalance, hypokalemia. I have asked Dr. Marshall to see the patient for the hypokalemia and Dr. Bernard for the heart block. We will continue to follow the patient closely. Jose Francisco Chand M.D. DR: PRINCESS JOB#: [id number] CC:
[2018-04-22] VITALS: BP 140/60
[2018-04-22 04:00] VITALS: BP 139/62
[2018-04-22 05:18] LABS: BASOPHILS % (AUTO) 0.6 % (0.0-2.0); EOSINOPHILS % (AUTO) 1.3 % (0.0-3.0); HEMATOCRIT 31.5 % (42.0-52.0); HEMOGLOBIN 10.4 G/DL (14.2-18.0); MEAN CORPUSCULAR VOLUME 93 FL (80-99); NEUTROPHILS % (AUTO) 70.2 % (45.0-75.0); PLATELET COUNT 186 K/UL (150-450); RED BLOOD COUNT 3.39 M/UL (4.70-6.10); RED CELL DISTRIBUTION WIDTH 12.5 % (11.6-14.8); WHITE BLOOD COUNT 6.2 K/UL (4.8-10.8)
[2018-04-22 05:52] LABS: % IRON SATURATION 24 % (15-50); IRON 39 ug/dL (50-175); TOTAL IRON BINDING CAPACITY 162 ug/dL (250-450)
[2018-04-22 05:59] LABS: ALANINE AMINOTRANSFERASE 29 U/L (12-78); ALBUMIN 2.5 G/DL (3.4-5.0); ALBUMIN/GLOBULIN RATIO 0.7 (1.0-2.7); ALKALINE PHOSPHATASE 72 U/L (46-116); ANION GAP 8 mmol/L (5-15); ASPARTATE AMINO TRANSFERASE 12 U/L (15-37); BILIRUBIN,TOTAL 0.3 MG/DL (0.2-1.0); BLOOD UREA NITROGEN 15 mg/dL (7-18); CALCIUM 7.9 MG/DL (8.5-10.1); CARBON DIOXIDE 28 MMOL/L (21-32); CHLORIDE 112 MMOL/L (98-107); CHOLESTEROL 95 MG/DL (< 200); CREATININE 0.9 MG/DL (0.55-1.30); FERRITIN 47 NG/ML (8-388); HDL CHOLESTEROL 38 MG/DL (40-60); POTASSIUM 2.8 MMOL/L (3.5-5.1); SODIUM 148 MMOL/L (136-145); TRIGLYCERIDES 48 MG/DL (30-150)
[2018-04-22] MEDS: Levothyroxine 25mcg tab ORAL SCH (06:00)
[2018-04-22] MEDS: HydrALAZINE 25mg tab ORAL SCH ×4 (06:00→21:49)
[2018-04-22 06:03] LABS: GAMMA GLUTAMYL TRANSPEPTIDASE 16 U/L (5-85)
[2018-04-22] MEDS: NovoLOG Insulin Flexpen SUBQ SCH ×4 (06:30→21:52)
[2018-04-22 08:00] VITALS: BP 154/77
[2018-04-22] MEDS: Aspirin EC 81mg tab ORAL SCH (08:37)
[2018-04-22] MEDS: Memantine 10mg tab ORAL SCH (08:37)
[2018-04-22] MEDS: Multivitamin w/Minerals tab ORAL SCH (08:39)
[2018-04-22] MEDS: Tamsulosin 0.4mg cap ORAL SCH ×2 (08:39→17:11)
[2018-04-22] MEDS: Lactobacillus-GG tablet ORAL SCH ×2 (08:39→17:11)
[2018-04-22] MEDS: Spironolactone 50mg tab ORAL SCH (08:39)
--- NOTE | 2018-04-22 10:10 | Nephrology Progress Note ---
Assessment/Plan Problem List: (1) Hypokalemia (2) Hypernatremia (3) Anemia (4) Hypothyroidism Assessment HypoKalemia- no diarrhea HTN HypoThyroidism- Anemia- HyperLipemia- 1st Degree Av block- h/o CVA- Plan Adjust BP meds- K supplement po iv Anemia gonzalez PPIs monitor lytes 2D echo UA NS bollous Subjective ROS Limited/Unobtainable: No Constitutional: Reports: malaise Objective Objective Last 24 Hour Vital Signs Date Time Temp Pulse Resp B/P (MAP) Pulse Ox O2 Delivery O2 Flow Rate FiO2 04/22/18 10:04 154/77 04/22/18 09:00 Room Air 04/22/18 08:38 56 154/77 04/22/18 08:00 98.4 56 20 154/77 (102) 100 98.4 04/22/18 08:00 52 04/22/18 04:00 57 04/22/18 04:00 98.7 56 20 139/62 (87) 98 98.7 04/22/18 00:00 63 04/22/18 00:00 100.0 59 20 140/60 (86) 98 100.0 04/21/18 21:32 140/60 04/21/18 21:00 Room Air 04/21/18 20:00 98.0 66 20 140/60 (86) 98 98.0 04/21/18 20:00 63 04/21/18 16:00 97.9 74 18 113/55 (74) 97 97.9 04/21/18 15:58 66 04/21/18 13:52 118/69 04/21/18 12:17 97.9 65 18 118/69 (85) 97 97.9 04/21/18 11:49 70 Intake and Output 04/21/18 04/22/18 19:00 07:00 Intake Total 1719 ml Balance 1719 ml Intake Oral 720 ml IV Total 999 ml # Voids 1 1 # Bowel Movements 2 Laboratory Tests 04/21/18 17:00: Urine Color Yellow, Urine Appearance Cloudy, Urine pH 5, Urine Specific [place] 1.020, Urine Protein 2+H, Urine Glucose (UA) Negative, Urine Ketones Negative, Urine Occult Blood Negative, Urine Nitrite PositiveH, Urine Bilirubin Negative, Urine Urobilinogen Normal, Urine Leukocyte Esterase 3+H, Urine RBC 0-2H, Urine WBC 10-15H, Urine Squamous Epithelial Cells Occasional, Urine Bacteria ManyH 04/22/18 04:40: White Blood Count 6.2, Red Blood Count 3.39L, Hemoglobin 10.4L, Hematocrit 31.5L , Mean Corpuscular Volume 93, Mean Corpuscular Hemoglobin 30.7, Mean Corpuscular Hemoglobin Concent 33.0, Red Cell Distribution Width 12.5, Platelet Count 186, Mean Platelet Volume 6.8, Neutrophils (%) (Auto) 70.2, Lymphocytes (% ) (Auto) 21.0, Monocytes (%) (Auto) 7.0, Eosinophils (%) (Auto) 1.3, Basophils ( %) (Auto) 0.6, Sodium Level 148H, Potassium Level 2.8L, Chloride Level 112H, Carbon Dioxide Level 28, Anion Gap 8, Blood Urea Nitrogen 15, Creatinine 0.9, Estimat Glomerular Filtration Rate , Glucose Level 136H, Hemoglobin A1c 5.3, Uric Acid 5.6, Calcium Level 7.9L, Phosphorus Level 3.0, Magnesium Level 1.7L, Iron Level 39L, Total Iron Binding Capacity 162L, Percent Iron Saturation 24, Unsaturated Iron Binding 123, Ferritin 47, Total Bilirubin 0.3, Gamma Glutamyl Transpeptidase 16, Aspartate Amino Transf (AST/SGOT) 12L, Alanine Aminotransferase (ALT/SGPT) 29, Alkaline Phosphatase 72, Troponin I 0.036, Pro-B -Type Natriuretic Peptide 1777H, Total Protein 6.1L, Albumin 2.5L, Globulin 3.6 , Albumin/Globulin Ratio 0.7L, Triglycerides Level 48, Cholesterol Level 95, LDL Cholesterol 62, HDL Cholesterol 38L, Cholesterol/HDL Ratio 2.5L, Vitamin B12 Level 398, Folate 18.2, Thyroid Stimulating Hormone (TSH) 2.420, Free Thyroxine 0.93, Cortisol AM Sample [Pending] Height (Feet): 5 Height (Inches): 11.00 Weight (Pounds): 192 General Appearance: no apparent distress Cardiovascular: normal rate Respiratory/Chest: decreased breath sounds Abdomen: soft, other - no loose BM recorded Herve Marshall MD Apr 22, 2018 10:10
--- NOTE | 2018-04-22 11:23 | Cardiac Electrophysiology PN ---
Assessment/Plan Assessment/Plan 1. First-degree and Mobitz type 1 as well as 2:1 AV block. Avoid any AV jackson blocking agents. Echocardiogram EF 75%. 2. Hyperlipidemia on Lipitor 40 mg daily. 3. Hypertension, on Norvasc 2.5 bid, Hydralazine 25 tid and Aldactone 25 daily 4. Severe hypokalemia. Potassium was replaced. On Aldactone. 5. Diabetes on insulin. 6. Hypothyroidism on Synthroid. Subjective Subjective Feeling better. No CP or SOB. Objective Last 24 Hour Vital Signs Date Time Temp Pulse Resp B/P (MAP) Pulse Ox O2 Delivery O2 Flow Rate FiO2 04/22/18 10:04 154/77 04/22/18 09:00 Room Air 04/22/18 08:38 56 154/77 04/22/18 08:00 98.4 56 20 154/77 (102) 100 98.4 04/22/18 08:00 52 04/22/18 04:00 57 04/22/18 04:00 98.7 56 20 139/62 (87) 98 98.7 04/22/18 00:00 63 04/22/18 00:00 100.0 59 20 140/60 (86) 98 100.0 04/21/18 21:32 140/60 04/21/18 21:00 Room Air 04/21/18 20:00 98.0 66 20 140/60 (86) 98 98.0 04/21/18 20:00 63 04/21/18 16:00 97.9 74 18 113/55 (74) 97 97.9 04/21/18 15:58 66 04/21/18 13:52 118/69 04/21/18 12:17 97.9 65 18 118/69 (85) 97 97.9 04/21/18 11:49 70 Intake and Output 04/21/18 04/22/18 19:00 07:00 Intake Total 1719 ml Balance 1719 ml Intake Oral 720 ml IV Total 999 ml # Voids 1 1 # Bowel Movements 2 Laboratory Tests Test 04/21/18 17:00 04/22/18 04:40 Urine Color Yellow Urine Appearance Cloudy Urine pH 5 (4.5-8.0) Urine Specific [place] 1.020 (1.005-1.035) Urine Protein 2+ (NEGATIVE) H Urine Glucose (UA) Negative (NEGATIVE) Urine Ketones Negative (NEGATIVE) Urine Occult Blood Negative (NEGATIVE) Urine Nitrite Positive (NEGATIVE) H Urine Bilirubin Negative (NEGATIVE) Urine Urobilinogen Normal MG/DL (0.0-1.0) Urine Leukocyte Esterase 3+ (NEGATIVE) H Urine RBC 0-2 /HPF (0 - 0) H Urine WBC 10-15 /HPF (0 - 0) H Urine Squamous Epithelial Cells Occasional /LPF Urine Bacteria Many /HPF (NONE) H White Blood Count 6.2 K/UL (4.8-10.8) Red Blood Count 3.39 M/UL (4.70-6.10) L Hemoglobin 10.4 G/DL (14.2-18.0) L Hematocrit 31.5 % (42.0-52.0) L Mean Corpuscular Volume 93 FL (80-99) Mean Corpuscular Hemoglobin 30.7 PG (27.0-31.0) Mean Corpuscular Hemoglobin Concent 33.0 G/DL (32.0-36.0) Red Cell Distribution Width 12.5 % (11.6-14.8) Platelet Count 186 K/UL (150-450) Mean Platelet Volume 6.8 FL (6.5-10.1) Neutrophils (%) (Auto) 70.2 % (45.0-75.0) Lymphocytes (%) (Auto) 21.0 % (20.0-45.0) Monocytes (%) (Auto) 7.0 % (1.0-10.0) Eosinophils (%) (Auto) 1.3 % (0.0-3.0) Basophils (%) (Auto) 0.6 % (0.0-2.0) Sodium Level 148 MMOL/L (136-145) H Potassium Level 2.8 MMOL/L (3.5-5.1) L Chloride Level 112 MMOL/L (98-107) H Carbon Dioxide Level 28 MMOL/L (21-32) Anion Gap 8 mmol/L (5-15) Blood Urea Nitrogen 15 mg/dL (7-18) Creatinine 0.9 MG/DL (0.55-1.30) Estimat Glomerular Filtration Rate mL/min (>60) Glucose Level 136 MG/DL (74-106) H Hemoglobin A1c 5.3 % (4.3-6.0) Uric Acid 5.6 MG/DL (2.6-7.2) Calcium Level 7.9 MG/DL (8.5-10.1) L Phosphorus Level 3.0 MG/DL (2.5-4.9) Magnesium Level 1.7 MG/DL (1.8-2.4) L Iron Level 39 ug/dL (50-175) L Total Iron Binding Capacity 162 ug/dL (250-450) L Percent Iron Saturation 24 % (15-50) Unsaturated Iron Binding 123 ug/dL (112-346) Ferritin 47 NG/ML (8-388) Total Bilirubin 0.3 MG/DL (0.2-1.0) Gamma Glutamyl Transpeptidase 16 U/L (5-85) Aspartate Amino Transf (AST/SGOT) 12 U/L (15-37) L Alanine Aminotransferase (ALT/SGPT) 29 U/L (12-78) Alkaline Phosphatase 72 U/L (46-116) Troponin I 0.036 ng/mL (0.000-0.056) C-Reactive Protein, Quantitative < 0.4 mg/dL (0.00-0.90) Pro-B-Type Natriuretic Peptide 1777 pg/mL (0-125) H Total Protein 6.1 G/DL (6.4-8.2) L Albumin 2.5 G/DL (3.4-5.0) L Globulin 3.6 g/dL Albumin/Globulin Ratio 0.7 (1.0-2.7) L Triglycerides Level 48 MG/DL (30-150) Cholesterol Level 95 MG/DL (< 200) LDL Cholesterol 62 mg/dL (<100) HDL Cholesterol 38 MG/DL (40-60) L Cholesterol/HDL Ratio 2.5 (3.3-4.4) L Vitamin B12 Level 398 PG/ML (193-986) Folate 18.2 NG/ML (8.6-58.9) Thyroid Stimulating Hormone (TSH) 2.420 uiU/mL (0.358-3.740) Free Thyroxine 0.93 NG/DL (0.76-1.46) Cortisol AM Sample Pending Microbiology Date/Time Source Procedure Growth Status 04/21/18 17:00 Urine,Clean Catch Urine Culture - Preliminary Resulted Objective HEAD AND NECK: No JVD or carotid bruit. LUNGS: Clear. CARDIOVASCULAR: Regular S1 and S2 with no gallop or murmur. ABDOMEN: Soft. EXTREMITIES: No pitting edema. Cedric Bernard MD Apr 22, 2018 11:23
[2018-04-22 12:00] VITALS: BP 112/78
--- NOTE | 2018-04-22 12:51 | General Progress Note ---
Assessment/Plan Problem List: (1) Heart block AV first degree ICD Codes: I44.0 - Atrioventricular block, first degree SNOMED: 009447334 (2) Diabetes mellitus ICD Codes: E11.9 - Type 2 diabetes mellitus without complications SNOMED: 73213688 (3) Anemia ICD Codes: D64.9 - Anemia, unspecified SNOMED: 316357641 (4) Hypothyroidism ICD Codes: E03.9 - Hypothyroidism, unspecified SNOMED: 40628255 (5) Hypokalemia ICD Codes: E87.6 - Hypokalemia SNOMED: 36407947 Status: progressing Assessment/Plan hypokalemia improving obs uti afebrile reviewed chart and labs Subjective ROS Limited/Unobtainable: Yes Allergies: Coded Allergies: No Known Allergies (Unverified , 04/22/17) Objective Last 24 Hour Vital Signs Date Time Temp Pulse Resp B/P (MAP) Pulse Ox O2 Delivery O2 Flow Rate FiO2 04/22/18 10:04 154/77 04/22/18 09:00 Room Air 04/22/18 08:38 56 154/77 04/22/18 08:00 98.4 56 20 154/77 (102) 100 98.4 04/22/18 08:00 52 04/22/18 04:00 57 04/22/18 04:00 98.7 56 20 139/62 (87) 98 98.7 04/22/18 00:00 63 04/22/18 00:00 100.0 59 20 140/60 (86) 98 100.0 04/21/18 21:32 140/60 04/21/18 21:00 Room Air 04/21/18 20:00 98.0 66 20 140/60 (86) 98 98.0 04/21/18 20:00 63 04/21/18 16:00 97.9 74 18 113/55 (74) 97 97.9 04/21/18 15:58 66 04/21/18 13:52 118/69 Intake and Output 04/21/18 04/22/18 19:00 07:00 Intake Total 1719 ml Balance 1719 ml Intake Oral 720 ml IV Total 999 ml # Voids 1 1 # Bowel Movements 2 Laboratory Tests 04/21/18 17:00: Urine Color Yellow, Urine Appearance Cloudy, Urine pH 5, Urine Specific [place] 1.020, Urine Protein 2+H, Urine Glucose (UA) Negative, Urine Ketones Negative, Urine Occult Blood Negative, Urine Nitrite PositiveH, Urine Bilirubin Negative, Urine Urobilinogen Normal, Urine Leukocyte Esterase 3+H, Urine RBC 0-2H, Urine WBC 10-15H, Urine Squamous Epithelial Cells Occasional, Urine Bacteria ManyH 04/22/18 04:40: White Blood Count 6.2, Red Blood Count 3.39L, Hemoglobin 10.4L, Hematocrit 31.5L , Mean Corpuscular Volume 93, Mean Corpuscular Hemoglobin 30.7, Mean Corpuscular Hemoglobin Concent 33.0, Red Cell Distribution Width 12.5, Platelet Count 186, Mean Platelet Volume 6.8, Neutrophils (%) (Auto) 70.2, Lymphocytes (% ) (Auto) 21.0, Monocytes (%) (Auto) 7.0, Eosinophils (%) (Auto) 1.3, Basophils ( %) (Auto) 0.6, Sodium Level 148H, Potassium Level 2.8L, Chloride Level 112H, Carbon Dioxide Level 28, Anion Gap 8, Blood Urea Nitrogen 15, Creatinine 0.9, Estimat Glomerular Filtration Rate , Glucose Level 136H, Hemoglobin A1c 5.3, Uric Acid 5.6, Calcium Level 7.9L, Phosphorus Level 3.0, Magnesium Level 1.7L, Iron Level 39L, Total Iron Binding Capacity 162L, Percent Iron Saturation 24, Unsaturated Iron Binding 123, Ferritin 47, Total Bilirubin 0.3, Gamma Glutamyl Transpeptidase 16, Aspartate Amino Transf (AST/SGOT) 12L, Alanine Aminotransferase (ALT/SGPT) 29, Alkaline Phosphatase 72, Troponin I 0.036, C- Reactive Protein, Quantitative < 0.4, Pro-B-Type Natriuretic Peptide 1777H, Total Protein 6.1L, Albumin 2.5L, Globulin 3.6, Albumin/Globulin Ratio 0.7L, Triglycerides Level 48, Cholesterol Level 95, LDL Cholesterol 62, HDL Cholesterol 38L, Cholesterol/HDL Ratio 2.5L, Vitamin B12 Level 398, Folate 18.2 , Thyroid Stimulating Hormone (TSH) 2.420, Free Thyroxine 0.93, Cortisol AM Sample [Pending] Height (Feet): 5 Height (Inches): 11.00 Weight (Pounds): 192 Cardiovascular: normal rate Respiratory/Chest: lungs clear Jose Francisco Chand MD Apr 22, 2018 12:51
--- NOTE | 2018-04-22 12:52 | General Progress Note ---
Assessment/Plan Status: stable Assessment/Plan MDD Anxiety insomnia Dementia -remeron 15mg qhs -provided ro Subjective Neurologic/Psychiatric: Reports: anxiety, depressed, emotional problems Allergies: Coded Allergies: No Known Allergies (Unverified , 04/22/17) Objective Last 24 Hour Vital Signs Date Time Temp Pulse Resp B/P (MAP) Pulse Ox O2 Delivery O2 Flow Rate FiO2 04/22/18 10:04 154/77 04/22/18 09:00 Room Air 04/22/18 08:38 56 154/77 04/22/18 08:00 98.4 56 20 154/77 (102) 100 98.4 04/22/18 08:00 52 04/22/18 04:00 57 04/22/18 04:00 98.7 56 20 139/62 (87) 98 98.7 04/22/18 00:00 63 04/22/18 00:00 100.0 59 20 140/60 (86) 98 100.0 04/21/18 21:32 140/60 04/21/18 21:00 Room Air 04/21/18 20:00 98.0 66 20 140/60 (86) 98 98.0 04/21/18 20:00 63 04/21/18 16:00 97.9 74 18 113/55 (74) 97 97.9 04/21/18 15:58 66 04/21/18 13:52 118/69 Intake and Output 04/21/18 04/22/18 19:00 07:00 Intake Total 1719 ml Balance 1719 ml Intake Oral 720 ml IV Total 999 ml # Voids 1 1 # Bowel Movements 2 Laboratory Tests 04/21/18 17:00: Urine Color Yellow, Urine Appearance Cloudy, Urine pH 5, Urine Specific [place] 1.020, Urine Protein 2+H, Urine Glucose (UA) Negative, Urine Ketones Negative, Urine Occult Blood Negative, Urine Nitrite PositiveH, Urine Bilirubin Negative, Urine Urobilinogen Normal, Urine Leukocyte Esterase 3+H, Urine RBC 0-2H, Urine WBC 10-15H, Urine Squamous Epithelial Cells Occasional, Urine Bacteria ManyH 04/22/18 04:40: White Blood Count 6.2, Red Blood Count 3.39L, Hemoglobin 10.4L, Hematocrit 31.5L , Mean Corpuscular Volume 93, Mean Corpuscular Hemoglobin 30.7, Mean Corpuscular Hemoglobin Concent 33.0, Red Cell Distribution Width 12.5, Platelet Count 186, Mean Platelet Volume 6.8, Neutrophils (%) (Auto) 70.2, Lymphocytes (% ) (Auto) 21.0, Monocytes (%) (Auto) 7.0, Eosinophils (%) (Auto) 1.3, Basophils ( %) (Auto) 0.6, Sodium Level 148H, Potassium Level 2.8L, Chloride Level 112H, Carbon Dioxide Level 28, Anion Gap 8, Blood Urea Nitrogen 15, Creatinine 0.9, Estimat Glomerular Filtration Rate , Glucose Level 136H, Hemoglobin A1c 5.3, Uric Acid 5.6, Calcium Level 7.9L, Phosphorus Level 3.0, Magnesium Level 1.7L, Iron Level 39L, Total Iron Binding Capacity 162L, Percent Iron Saturation 24, Unsaturated Iron Binding 123, Ferritin 47, Total Bilirubin 0.3, Gamma Glutamyl Transpeptidase 16, Aspartate Amino Transf (AST/SGOT) 12L, Alanine Aminotransferase (ALT/SGPT) 29, Alkaline Phosphatase 72, Troponin I 0.036, C- Reactive Protein, Quantitative < 0.4, Pro-B-Type Natriuretic Peptide 1777H, Total Protein 6.1L, Albumin 2.5L, Globulin 3.6, Albumin/Globulin Ratio 0.7L, Triglycerides Level 48, Cholesterol Level 95, LDL Cholesterol 62, HDL Cholesterol 38L, Cholesterol/HDL Ratio 2.5L, Vitamin B12 Level 398, Folate 18.2 , Thyroid Stimulating Hormone (TSH) 2.420, Free Thyroxine 0.93, Cortisol AM Sample [Pending] Height (Feet): 5 Height (Inches): 11.00 Weight (Pounds): 192 General Appearance: no apparent distress, alert Neurologic: oriented x 3, responsive, depressed affect Greg Gupta MD Apr 22, 2018 12:52
[2018-04-22 16:00] VITALS: BP 152/65
[2018-04-22 20:00] VITALS: BP 143/69
[2018-04-22] MEDS: Sennosides 8.6mg ORAL SCH ×2 (21:00→21:48)
[2018-04-22] MEDS: Atorvastatin 20mg tab ORAL SCH (21:48)
[2018-04-23] VITALS: BP 153/64
[2018-04-23 04:00] VITALS: BP 148/58
[2018-04-23 05:32] LABS: BASOPHILS % (AUTO) 0.7 % (0.0-2.0); EOSINOPHILS % (AUTO) 2.2 % (0.0-3.0); HEMATOCRIT 32.7 % (42.0-52.0); HEMOGLOBIN 10.7 G/DL (14.2-18.0); LYMPHOCYTES % (AUTO) 24.1 % (20.0-45.0); MEAN CORPUSCULAR VOLUME 93 FL (80-99); MONOCYTES % (AUTO) 7.5 % (1.0-10.0); NEUTROPHILS % (AUTO) 65.4 % (45.0-75.0); PLATELET COUNT 179 K/UL (150-450); RED BLOOD COUNT 3.51 M/UL (4.70-6.10); RED CELL DISTRIBUTION WIDTH 11.9 % (11.6-14.8); WHITE BLOOD COUNT 6.6 K/UL (4.8-10.8)
[2018-04-23] MEDS: NovoLOG Insulin Flexpen SUBQ SCH ×4 (06:01→21:00)
[2018-04-23 06:05] LABS: ALANINE AMINOTRANSFERASE 21 U/L (12-78); ALBUMIN 2.5 G/DL (3.4-5.0); ALBUMIN/GLOBULIN RATIO 0.7 (1.0-2.7); ALKALINE PHOSPHATASE 69 U/L (46-116); ANION GAP 6 mmol/L (5-15); ASPARTATE AMINO TRANSFERASE 13 U/L (15-37); BILIRUBIN,TOTAL 0.4 MG/DL (0.2-1.0); BLOOD UREA NITROGEN 11 mg/dL (7-18); CALCIUM 7.9 MG/DL (8.5-10.1); CARBON DIOXIDE 29 MMOL/L (21-32); CHLORIDE 112 MMOL/L (98-107); PHOSPHORUS 2.9 MG/DL (2.5-4.9); POTASSIUM 2.8 MMOL/L (3.5-5.1); SODIUM 147 MMOL/L (136-145)
[2018-04-23] MEDS: HydrALAZINE 25mg tab ORAL SCH ×3 (06:13→21:25)
[2018-04-23] MEDS: Levothyroxine 25mcg tab ORAL SCH (06:13)
[2018-04-23 08:00] VITALS: BP 145/65
[2018-04-23] MEDS: Memantine 10mg tab ORAL SCH (08:44)
[2018-04-23] MEDS: Aspirin EC 81mg tab ORAL SCH (08:44)
[2018-04-23] MEDS: Lactobacillus-GG tablet ORAL SCH ×2 (08:44→18:26)
[2018-04-23] MEDS: Multivitamin w/Minerals tab ORAL SCH (08:44)
[2018-04-23] MEDS: Tamsulosin 0.4mg cap ORAL SCH ×2 (08:45→18:26)
[2018-04-23] MEDS: Spironolactone 50mg tab ORAL SCH (08:45)
--- NOTE | 2018-04-23 09:08 | Cardiac Electrophysiology PN ---
Assessment/Plan Assessment/Plan 1. First-degree and Mobitz type 1 as well as 2:1 AV block. Avoid any AV jackson blocking agents. Echocardiogram EF 75%.If lenin persists may need PPM 2. Nonsustained VT. Nl EF. Will schedule for nuclear stress test. 3. Hypertension, on Norvasc 2.5 bid, Hydralazine 25 tid and Aldactone 50 daily 4. Severe hypokalemia. Potassium was replaced. On Aldactone 50. 5. Diabetes on insulin. 6. Hypothyroidism on Synthroid. 7. Hyperlipidemia on Lipitor 40 mg daily. DW RN Subjective Subjective Feeling better. No CP or SOB.Had lenin down to 50s Objective Last 24 Hour Vital Signs Date Time Temp Pulse Resp B/P (MAP) Pulse Ox O2 Delivery O2 Flow Rate FiO2 04/23/18 08:45 58 145/65 04/23/18 06:13 148/58 04/23/18 04:00 52 04/23/18 04:00 98.2 54 20 148/58 (88) 98 98.2 04/23/18 00:00 59 04/23/18 00:00 97.9 60 20 153/64 (93) 100 97.9 04/22/18 21:49 138/61 04/22/18 21:00 Room Air 04/22/18 20:00 99.3 56 23 143/69 (93) 100 99.3 04/22/18 20:00 59 04/22/18 17:11 56 152/65 04/22/18 16:00 56 04/22/18 16:00 98.6 60 18 152/65 (94) 98 98.6 04/22/18 13:40 154/77 04/22/18 12:00 98.7 60 20 112/78 (89) 98 98.7 04/22/18 12:00 57 04/22/18 10:04 154/77 Intake and Output 04/22/18 04/23/18 19:00 07:00 Intake Total 980 ml 100 ml Balance 980 ml 100 ml Intake Oral 480 ml 100 ml IV Total 500 ml # Voids 2 2 # Bowel Movements 1 1 Laboratory Tests Test 04/23/18 05:00 White Blood Count 6.6 K/UL (4.8-10.8) Red Blood Count 3.51 M/UL (4.70-6.10) L Hemoglobin 10.7 G/DL (14.2-18.0) L Hematocrit 32.7 % (42.0-52.0) L Mean Corpuscular Volume 93 FL (80-99) Mean Corpuscular Hemoglobin 30.3 PG (27.0-31.0) Mean Corpuscular Hemoglobin Concent 32.6 G/DL (32.0-36.0) Red Cell Distribution Width 11.9 % (11.6-14.8) Platelet Count 179 K/UL (150-450) Mean Platelet Volume 7.2 FL (6.5-10.1) Neutrophils (%) (Auto) 65.4 % (45.0-75.0) Lymphocytes (%) (Auto) 24.1 % (20.0-45.0) Monocytes (%) (Auto) 7.5 % (1.0-10.0) Eosinophils (%) (Auto) 2.2 % (0.0-3.0) Basophils (%) (Auto) 0.7 % (0.0-2.0) Sodium Level 147 MMOL/L (136-145) H Potassium Level 2.8 MMOL/L (3.5-5.1) L Chloride Level 112 MMOL/L (98-107) H Carbon Dioxide Level 29 MMOL/L (21-32) Anion Gap 6 mmol/L (5-15) Blood Urea Nitrogen 11 mg/dL (7-18) Creatinine 1.0 MG/DL (0.55-1.30) Estimat Glomerular Filtration Rate mL/min (>60) Glucose Level 88 MG/DL (74-106) Uric Acid 5.1 MG/DL (2.6-7.2) Calcium Level 7.9 MG/DL (8.5-10.1) L Phosphorus Level 2.9 MG/DL (2.5-4.9) Magnesium Level 1.9 MG/DL (1.8-2.4) Total Bilirubin 0.4 MG/DL (0.2-1.0) Aspartate Amino Transf (AST/SGOT) 13 U/L (15-37) L Alanine Aminotransferase (ALT/SGPT) 21 U/L (12-78) Alkaline Phosphatase 69 U/L (46-116) Pro-B-Type Natriuretic Peptide 762 pg/mL (0-125) H Total Protein 6.2 G/DL (6.4-8.2) L Albumin 2.5 G/DL (3.4-5.0) L Globulin 3.7 g/dL Albumin/Globulin Ratio 0.7 (1.0-2.7) L Microbiology Date/Time Source Procedure Growth Status 04/21/18 17:00 Urine,Clean Catch Urine Culture - Preliminary Resulted Objective HEAD AND NECK: No JVD or carotid bruit. LUNGS: Clear. CARDIOVASCULAR: [place] S1 and S2 with no gallop or murmur. ABDOMEN: Soft. EXTREMITIES: No pitting edema. Cedric Bernard MD Apr 23, 2018 09:08
[2018-04-23] MEDS ORDERED: Lexiscan 0.4mg/5ml syringe IV ONE (09:20)
--- NOTE | 2018-04-23 10:15 | Nephrology Progress Note ---
Assessment/Plan Problem List: (1) Hypokalemia (2) Hypernatremia (3) Anemia (4) Hypothyroidism Assessment HypoKalemia- no diarrhea- persistant HTN HypoThyroidism- Anemia- HyperLipemia- 1st Degree Av block- h/o CVA- Plan Adjust BP meds- K supplement po iv Anemia gonzalez PPIs monitor lytes 2D echo UA U K NS bollous Subjective ROS Limited/Unobtainable: No Constitutional: Reports: malaise Objective Objective Last 24 Hour Vital Signs Date Time Temp Pulse Resp B/P (MAP) Pulse Ox O2 Delivery O2 Flow Rate FiO2 04/23/18 08:45 58 145/65 04/23/18 06:13 148/58 04/23/18 04:00 52 04/23/18 04:00 98.2 54 20 148/58 (88) 98 98.2 04/23/18 00:00 59 04/23/18 00:00 97.9 60 20 153/64 (93) 100 97.9 04/22/18 21:49 138/61 04/22/18 21:00 Room Air 04/22/18 20:00 99.3 56 23 143/69 (93) 100 99.3 04/22/18 20:00 59 04/22/18 17:11 56 152/65 04/22/18 16:00 56 04/22/18 16:00 98.6 60 18 152/65 (94) 98 98.6 04/22/18 13:40 154/77 04/22/18 12:00 98.7 60 20 112/78 (89) 98 98.7 04/22/18 12:00 57 Intake and Output 04/22/18 04/23/18 19:00 07:00 Intake Total 980 ml 100 ml Balance 980 ml 100 ml Intake Oral 480 ml 100 ml IV Total 500 ml # Voids 2 2 # Bowel Movements 1 1 Laboratory Tests 04/23/18 05:00: White Blood Count 6.6, Red Blood Count 3.51L, Hemoglobin 10.7L, Hematocrit 32.7L , Mean Corpuscular Volume 93, Mean Corpuscular Hemoglobin 30.3, Mean Corpuscular Hemoglobin Concent 32.6, Red Cell Distribution Width 11.9, Platelet Count 179, Mean Platelet Volume 7.2, Neutrophils (%) (Auto) 65.4, Lymphocytes (% ) (Auto) 24.1, Monocytes (%) (Auto) 7.5, Eosinophils (%) (Auto) 2.2, Basophils ( %) (Auto) 0.7, Sodium Level 147H, Potassium Level 2.8L, Chloride Level 112H, Carbon Dioxide Level 29, Anion Gap 6, Blood Urea Nitrogen 11, Creatinine 1.0, Estimat Glomerular Filtration Rate , Glucose Level 88, Uric Acid 5.1, Calcium Level 7.9L, Phosphorus Level 2.9, Magnesium Level 1.9, Total Bilirubin 0.4, Aspartate Amino Transf (AST/SGOT) 13L, Alanine Aminotransferase (ALT/SGPT) 21, Alkaline Phosphatase 69, Pro-B-Type Natriuretic Peptide 762H, Total Protein 6.2L , Albumin 2.5L, Globulin 3.7, Albumin/Globulin Ratio 0.7L Height (Feet): 5 Height (Inches): 11.00 Weight (Pounds): 192 General Appearance: no apparent distress Objective no change Herve Marshall MD Apr 23, 2018 10:15
[2018-04-23 12:00] VITALS: BP 141/67
--- NOTE | 2018-04-23 12:25 | General Progress Note ---
Assessment/Plan Status: stable, progressing Assessment/Plan MDD Anxiety insomnia Dementia -remeron 15mg qhs -provided ro Subjective Date patient seen: Apr 23, 2018 Neurologic/Psychiatric: Reports: anxiety, depressed Allergies: Coded Allergies: No Known Allergies (Unverified , 04/22/17) Subjective the pt is forgetful and is a poor historian Objective Last 24 Hour Vital Signs Date Time Temp Pulse Resp B/P (MAP) Pulse Ox O2 Delivery O2 Flow Rate FiO2 04/23/18 09:00 Room Air 04/23/18 08:45 58 145/65 04/23/18 08:00 98.4 58 19 145/65 (91) 95 98.4 04/23/18 06:13 148/58 04/23/18 04:00 52 04/23/18 04:00 98.2 54 20 148/58 (88) 98 98.2 04/23/18 00:00 59 04/23/18 00:00 97.9 60 20 153/64 (93) 100 97.9 04/22/18 21:49 138/61 04/22/18 21:00 Room Air 04/22/18 20:00 99.3 56 23 143/69 (93) 100 99.3 04/22/18 20:00 59 04/22/18 17:11 56 152/65 04/22/18 16:00 56 04/22/18 16:00 98.6 60 18 152/65 (94) 98 98.6 04/22/18 13:40 154/77 Intake and Output 04/22/18 04/23/18 19:00 07:00 Intake Total 980 ml 100 ml Balance 980 ml 100 ml Intake Oral 480 ml 100 ml IV Total 500 ml # Voids 2 2 # Bowel Movements 1 1 Laboratory Tests 04/23/18 05:00: White Blood Count 6.6, Red Blood Count 3.51L, Hemoglobin 10.7L, Hematocrit 32.7L , Mean Corpuscular Volume 93, Mean Corpuscular Hemoglobin 30.3, Mean Corpuscular Hemoglobin Concent 32.6, Red Cell Distribution Width 11.9, Platelet Count 179, Mean Platelet Volume 7.2, Neutrophils (%) (Auto) 65.4, Lymphocytes (% ) (Auto) 24.1, Monocytes (%) (Auto) 7.5, Eosinophils (%) (Auto) 2.2, Basophils ( %) (Auto) 0.7, Sodium Level 147H, Potassium Level 2.8L, Chloride Level 112H, Carbon Dioxide Level 29, Anion Gap 6, Blood Urea Nitrogen 11, Creatinine 1.0, Estimat Glomerular Filtration Rate , Glucose Level 88, Uric Acid 5.1, Calcium Level 7.9L, Phosphorus Level 2.9, Magnesium Level 1.9, Total Bilirubin 0.4, Aspartate Amino Transf (AST/SGOT) 13L, Alanine Aminotransferase (ALT/SGPT) 21, Alkaline Phosphatase 69, Pro-B-Type Natriuretic Peptide 762H, Total Protein 6.2L , Albumin 2.5L, Globulin 3.7, Albumin/Globulin Ratio 0.7L Height (Feet): 5 Height (Inches): 11.00 Weight (Pounds): 192 General Appearance: no apparent distress, alert Neurologic: depressed affect Greg Gupta MD Apr 23, 2018 12:25
[2018-04-23 16:00] VITALS: BP 138/85
[2018-04-23 20:00] VITALS: BP 157/99
[2018-04-23] MEDS: Atorvastatin 20mg tab ORAL SCH (21:25)
[2018-04-23] MEDS: Sennosides 8.6mg ORAL SCH (21:25)
[2018-04-24] VITALS (7 sets, daily range): BP systolic 120–154; BP diastolic 56–84
[2018-04-24 06:12] LABS: BASOPHILS % (AUTO) 1.2 % (0.0-2.0); EOSINOPHILS % (AUTO) 2.4 % (0.0-3.0); HEMATOCRIT 33.2 % (42.0-52.0); HEMOGLOBIN 10.9 G/DL (14.2-18.0); LYMPHOCYTES % (AUTO) 21.6 % (20.0-45.0); MEAN CORPUSCULAR VOLUME 93 FL (80-99); MONOCYTES % (AUTO) 5.8 % (1.0-10.0); NEUTROPHILS % (AUTO) 69.1 % (45.0-75.0); PLATELET COUNT 178 K/UL (150-450); RED BLOOD COUNT 3.56 M/UL (4.70-6.10); RED CELL DISTRIBUTION WIDTH 11.9 % (11.6-14.8); WHITE BLOOD COUNT 6.5 K/UL (4.8-10.8)
[2018-04-24] MEDS: NovoLOG Insulin Flexpen SUBQ SCH ×4 (06:30→20:36)
[2018-04-24] MEDS: Levothyroxine 25mcg tab ORAL SCH (06:33)
[2018-04-24] MEDS: HydrALAZINE 25mg tab ORAL SCH ×3 (06:33→20:35)
[2018-04-24 06:47] LABS: ALANINE AMINOTRANSFERASE 17 U/L (12-78); ALBUMIN 2.4 G/DL (3.4-5.0); ALBUMIN/GLOBULIN RATIO 0.7 (1.0-2.7); ALKALINE PHOSPHATASE 64 U/L (46-116); ANION GAP 6 mmol/L (5-15); ASPARTATE AMINO TRANSFERASE 11 U/L (15-37); BILIRUBIN,TOTAL 0.4 MG/DL (0.2-1.0); BLOOD UREA NITROGEN 7 mg/dL (7-18); CALCIUM 7.7 MG/DL (8.5-10.1); CARBON DIOXIDE 29 MMOL/L (21-32); CHLORIDE 112 MMOL/L (98-107); CREATININE 0.9 MG/DL (0.55-1.30); PHOSPHORUS 2.6 MG/DL (2.5-4.9); POTASSIUM 3.1 MMOL/L (3.5-5.1); SODIUM 146 MMOL/L (136-145)
[2018-04-24] MEDS ORDERED: Lexiscan 0.4mg/5ml syringe IV ONE (09:00)
--- NOTE | 2018-04-24 09:23 | Nephrology Progress Note ---
Assessment/Plan Problem List: (1) Hypokalemia (2) Hypernatremia (3) Anemia (4) Hypothyroidism Assessment HypoKalemia- no diarrhea- improved but not yet corrected HTN HypoThyroidism- Anemia- HyperLipemia- 1st Degree Av block- h/o CVA- Plan Adjust BP meds- K supplement po iv Anemia gonzalez PPIs monitor lytes 2D echo Left ventricular ejection fraction estimated to be 70-75 %. UA U K Subjective ROS Limited/Unobtainable: No Constitutional: Reports: malaise Objective Objective Last 24 Hour Vital Signs Date Time Temp Pulse Resp B/P (MAP) Pulse Ox O2 Delivery O2 Flow Rate FiO2 04/24/18 06:33 146/75 04/24/18 04:00 97.3 49 20 146/75 (98) 98 97.3 04/24/18 04:00 48 04/24/18 00:00 53 04/24/18 00:00 98.4 55 20 153/65 (94) 100 98.4 04/23/18 21:25 157/99 04/23/18 21:00 Room Air 04/23/18 20:00 99.0 61 20 157/99 (118) 98 99.0 04/23/18 20:00 54 04/23/18 18:27 59 138/85 04/23/18 16:00 98.4 59 19 138/85 (102) 98 98.4 04/23/18 16:00 56 04/23/18 13:26 141/67 04/23/18 12:00 53 04/23/18 12:00 98.6 59 19 141/67 (91) 100 98.6 Intake and Output 04/23/18 04/24/18 19:00 07:00 Intake Total 450 ml Balance 450 ml Intake Oral 450 ml # Voids 3 # Bowel Movements 2 1 Laboratory Tests 04/24/18 05:35: White Blood Count 6.5, Red Blood Count 3.56L, Hemoglobin 10.9L, Hematocrit 33.2L , Mean Corpuscular Volume 93, Mean Corpuscular Hemoglobin 30.5, Mean Corpuscular Hemoglobin Concent 32.8, Red Cell Distribution Width 11.9, Platelet Count 178, Mean Platelet Volume 7.1, Neutrophils (%) (Auto) 69.1, Lymphocytes (% ) (Auto) 21.6, Monocytes (%) (Auto) 5.8, Eosinophils (%) (Auto) 2.4, Basophils ( %) (Auto) 1.2, Sodium Level 146H, Potassium Level 3.1L, Chloride Level 112H, Carbon Dioxide Level 29, Anion Gap 6, Blood Urea Nitrogen 7, Creatinine 0.9, Estimat Glomerular Filtration Rate , Glucose Level 85, Calcium Level 7.7L, Phosphorus Level 2.6, Magnesium Level 1.9, Total Bilirubin 0.4, Aspartate Amino Transf (AST/SGOT) 11L, Alanine Aminotransferase (ALT/SGPT) 17, Alkaline Phosphatase 64, Total Protein 5.9L, Albumin 2.4L, Globulin 3.5, Albumin/ Globulin Ratio 0.7L 04/24/18 06:55: Urine Random Sodium 121H, Urine Potassium Timed 25 Height (Feet): 5 Height (Inches): 11.00 Weight (Pounds): 192 General Appearance: no apparent distress Respiratory/Chest: lungs clear Abdomen: soft Objective no change Herve Marshall MD Apr 24, 2018 09:23
--- NOTE | 2018-04-24 09:25 | Cardiac Electrophysiology PN ---
Assessment/Plan Assessment/Plan 1. First-degree and second degree Mobitz type 1 as well as 2:1 AV block. Avoid any AV jackson blocking agents. Echocardiogram EF 75%.If drake persists may need PPM 2. Nonsustained VT. Nl EF. Nuclear stress test pending today. 3. Hypertension, on Norvasc 2.5 bid, Hydralazine 25 tid and Aldactone 50 daily 4. Severe hypokalemia. Potassium was replaced. On Aldactone 50. 5. Diabetes on insulin. 6. Hypothyroidism on Synthroid. 7. Hyperlipidemia on Lipitor 40 mg daily. WESLEY RN Subjective Subjective Feeling better. No CP or SOB. Scheduled for stress test today Objective Last 24 Hour Vital Signs Date Time Temp Pulse Resp B/P (MAP) Pulse Ox O2 Delivery O2 Flow Rate FiO2 04/24/18 06:33 146/75 04/24/18 04:00 97.3 49 20 146/75 (98) 98 97.3 04/24/18 04:00 48 04/24/18 00:00 53 04/24/18 00:00 98.4 55 20 153/65 (94) 100 98.4 04/23/18 21:25 157/99 04/23/18 21:00 Room Air 04/23/18 20:00 99.0 61 20 157/99 (118) 98 99.0 04/23/18 20:00 54 04/23/18 18:27 59 138/85 04/23/18 16:00 98.4 59 19 138/85 (102) 98 98.4 04/23/18 16:00 56 04/23/18 13:26 141/67 04/23/18 12:00 53 04/23/18 12:00 98.6 59 19 141/67 (91) 100 98.6 Intake and Output 04/23/18 04/24/18 19:00 07:00 Intake Total 450 ml Balance 450 ml Intake Oral 450 ml # Voids 3 # Bowel Movements 2 1 Laboratory Tests Test 04/24/18 05:35 04/24/18 06:55 White Blood Count 6.5 K/UL (4.8-10.8) Red Blood Count 3.56 M/UL (4.70-6.10) L Hemoglobin 10.9 G/DL (14.2-18.0) L Hematocrit 33.2 % (42.0-52.0) L Mean Corpuscular Volume 93 FL (80-99) Mean Corpuscular Hemoglobin 30.5 PG (27.0-31.0) Mean Corpuscular Hemoglobin Concent 32.8 G/DL (32.0-36.0) Red Cell Distribution Width 11.9 % (11.6-14.8) Platelet Count 178 K/UL (150-450) Mean Platelet Volume 7.1 FL (6.5-10.1) Neutrophils (%) (Auto) 69.1 % (45.0-75.0) Lymphocytes (%) (Auto) 21.6 % (20.0-45.0) Monocytes (%) (Auto) 5.8 % (1.0-10.0) Eosinophils (%) (Auto) 2.4 % (0.0-3.0) Basophils (%) (Auto) 1.2 % (0.0-2.0) Sodium Level 146 MMOL/L (136-145) H Potassium Level 3.1 MMOL/L (3.5-5.1) L Chloride Level 112 MMOL/L (98-107) H Carbon Dioxide Level 29 MMOL/L (21-32) Anion Gap 6 mmol/L (5-15) Blood Urea Nitrogen 7 mg/dL (7-18) Creatinine 0.9 MG/DL (0.55-1.30) Estimat Glomerular Filtration Rate mL/min (>60) Glucose Level 85 MG/DL (74-106) Calcium Level 7.7 MG/DL (8.5-10.1) L Phosphorus Level 2.6 MG/DL (2.5-4.9) Magnesium Level 1.9 MG/DL (1.8-2.4) Total Bilirubin 0.4 MG/DL (0.2-1.0) Aspartate Amino Transf (AST/SGOT) 11 U/L (15-37) L Alanine Aminotransferase (ALT/SGPT) 17 U/L (12-78) Alkaline Phosphatase 64 U/L (46-116) Total Protein 5.9 G/DL (6.4-8.2) L Albumin 2.4 G/DL (3.4-5.0) L Globulin 3.5 g/dL Albumin/Globulin Ratio 0.7 (1.0-2.7) L Urine Random Sodium 121 mmol/L (20-110) H Urine Potassium Timed 25 mmol/L (12-62) Microbiology Date/Time Source Procedure Growth Status 04/21/18 17:00 Urine,Clean Catch Urine Culture - Preliminary Proteus Mirabilis Resulted 04/21/18 17:50 Rectum VRE Culture - Final Enterococcus Faecalis - Vre Complete Objective HEAD AND NECK: No JVD or carotid bruit. LUNGS: Clear. CARDIOVASCULAR: Drake S1 and S2 with no gallop or murmur. ABDOMEN: Soft. EXTREMITIES: No edema. Cedric Bernard MD Apr 24, 2018 09:25
[2018-04-24] MEDS: Tamsulosin 0.4mg cap ORAL SCH ×2 (10:45→16:37)
[2018-04-24] MEDS: Aspirin EC 81mg tab ORAL SCH (10:45)
[2018-04-24] MEDS: Multivitamin w/Minerals tab ORAL SCH (10:46)
[2018-04-24] MEDS: Memantine 10mg tab ORAL SCH (10:47)
[2018-04-24] MEDS: Spironolactone 50mg tab ORAL SCH (10:48)
[2018-04-24] MEDS: Lactobacillus-GG tablet ORAL SCH ×2 (10:50→16:36)
[2018-04-24] MEDS: Cephalexin 500mg cap ORAL SCH ×2 (11:22→16:37)
--- NOTE | 2018-04-24 12:08 | General Progress Note ---
Assessment/Plan Problem List: (1) Heart block AV first degree ICD Codes: I44.0 - Atrioventricular block, first degree SNOMED: 113204400 (2) Diabetes mellitus ICD Codes: E11.9 - Type 2 diabetes mellitus without complications SNOMED: 81891178 (3) Anemia ICD Codes: D64.9 - Anemia, unspecified SNOMED: 520103925 (4) Hypothyroidism ICD Codes: E03.9 - Hypothyroidism, unspecified SNOMED: 49518287 (5) Hypokalemia ICD Codes: E87.6 - Hypokalemia SNOMED: 05180812 Status: progressing Assessment/Plan afebrile anemia hypokalemia improved dc once cleared by certified scrum master Subjective ROS Limited/Unobtainable: Yes Constitutional: Reports: no symptoms Allergies: Coded Allergies: No Known Allergies (Unverified , 04/22/17) Objective Last 24 Hour Vital Signs Date Time Temp Pulse Resp B/P (MAP) Pulse Ox O2 Delivery O2 Flow Rate FiO2 04/24/18 11:04 50 154/61 04/24/18 06:33 146/75 04/24/18 04:00 97.3 49 20 146/75 (98) 98 97.3 04/24/18 04:00 48 04/24/18 00:00 53 04/24/18 00:00 98.4 55 20 153/65 (94) 100 98.4 04/23/18 21:25 157/99 04/23/18 21:00 Room Air 04/23/18 20:00 99.0 61 20 157/99 (118) 98 99.0 04/23/18 20:00 54 04/23/18 18:27 59 138/85 04/23/18 16:00 98.4 59 19 138/85 (102) 98 98.4 04/23/18 16:00 56 04/23/18 13:26 141/67 Intake and Output 04/23/18 04/24/18 19:00 07:00 Intake Total 450 ml Balance 450 ml Intake Oral 450 ml # Voids 3 # Bowel Movements 2 1 Laboratory Tests 04/24/18 05:35: White Blood Count 6.5, Red Blood Count 3.56L, Hemoglobin 10.9L, Hematocrit 33.2L , Mean Corpuscular Volume 93, Mean Corpuscular Hemoglobin 30.5, Mean Corpuscular Hemoglobin Concent 32.8, Red Cell Distribution Width 11.9, Platelet Count 178, Mean Platelet Volume 7.1, Neutrophils (%) (Auto) 69.1, Lymphocytes (% ) (Auto) 21.6, Monocytes (%) (Auto) 5.8, Eosinophils (%) (Auto) 2.4, Basophils ( %) (Auto) 1.2, Sodium Level 146H, Potassium Level 3.1L, Chloride Level 112H, Carbon Dioxide Level 29, Anion Gap 6, Blood Urea Nitrogen 7, Creatinine 0.9, Estimat Glomerular Filtration Rate , Glucose Level 85, Calcium Level 7.7L, Phosphorus Level 2.6, Magnesium Level 1.9, Total Bilirubin 0.4, Aspartate Amino Transf (AST/SGOT) 11L, Alanine Aminotransferase (ALT/SGPT) 17, Alkaline Phosphatase 64, Total Protein 5.9L, Albumin 2.4L, Globulin 3.5, Albumin/ Globulin Ratio 0.7L 04/24/18 06:55: Urine Random Sodium 121H, Urine Potassium Timed 25 Height (Feet): 5 Height (Inches): 11.00 Weight (Pounds): 192 Cardiovascular: normal rate Respiratory/Chest: lungs clear Abdomen: soft Jose Francisco Chand MD Apr 24, 2018 12:08
--- NOTE | 2018-04-24 14:57 | Diagnostic Imaging Report ---
Indications: Chest pain Technique: Single day single isotope protocol utilized. Initially, resting images obtained using IV administration 10.4 millicuries 99M technetium Myoview. Subsequently, patient underwent lexiscan stress testing. See cardiology report for details. During Lexiscan infusion, IV administration 32.3 mCi 99 M technetium Myoview. SPECT and planar images obtained. SPECT images gated to 8 phases of the cardiac cycle were also obtained, and reformatted into cine images for evaluation of ejection fraction. Comparison: none Findings: Per cardiology report, patient experienced no symptoms. Per cardiology report, resting EKG demonstrates normal sinus rhythm with nonspecific T wave abnormality. No ST changes were noted during infusion. Imaging demonstrates normal poststress perfusion, no fixed nor reversible perfusion defects. Normal cardiac chamber size. Calculated post stress ejection fraction 78%. No focal wall motion abnormality Impression: Nonischemic clinical response to pharmacologic stress, per cardiology report Nonischemic electrocardiographic response to pharmacologic stress, per cardiology report No imaging findings to suggest ischemia, at level of stress achieved. Calculated post stress ejection fraction 78%
[2018-04-24] MEDS: Atorvastatin 20mg tab ORAL SCH (20:34)
[2018-04-24] MEDS: Sennosides 8.6mg ORAL SCH (20:34)
--- NOTE | 2018-04-27 09:22 | Discharge Summary ---
Discharge Summary Discharge Summary _ DATE OF ADMISSION: 04/20/2018 DATE OF DISCHARGE: 04/24/2018 REASON FOR ADMISSION: 77 years old male, resident of [facility] facility, with past medical history significant for hypertension, congestive heart failure, hyperlipidemia, CVA with right-sided deficit, gastroparesis, BPH, hypothyroidism, was sent from the intermediate [facility] for abnormal labs. Potassium at the facility was 2.7. Patient denied chest pain , shortness of breath, leg swelling. Upon evaluation vital signs were stable , except slightly elevated blood pressure 153/67. Laboratory workup revealed no leukocytosis. Anemic with hemoglobin 12 hematocrit 36.5. Potassium 3.0, sodium 147. BUN16, creatinine 1.0. Blood sugar 130. Troponin negative. EKG showed first-degree AV Block Chest x-ray revealed no acute cardiopulmonary pathology but showed evidence of cardiomegaly. Patient admitted with diagnoses of hypernatremia , hypokalemia CONSULTANTS: obiee obia solution architect Dr. Bernard natural gas inspector Dr. Marshall psychiatrist HOSPITAL COURSE: Patient admitted. Rn New Grad closely followed. Cardiorenal parameters and volumes were closely monitored. Patient received normal saline boluses. Electrolytes were corrected as needed. Nephrotoxins were avoided. Patient noted to be bradycardic. Telemetry revealed sinus rhythm with first-degree AV block as well as sinus rhythm with episodes of 2:1 AV block. Hourly Sign Language Interpreter consult was requested. Echocardiogram revealed preserved ejection fraction of 70-75%. Myocardial perfusion scan revealed no evidence of ischemia. Hourly Sign Language Interpreter recommended to avoid any AV jackson blocking agents. Per obiee obia solution architect, if bradycardia persists, patient may need permanent pacemaker placement. Blood pressure was managed with calcium channel franco, hydralazine and Aldactone. Potassium was replaced as per natural gas inspector. Patient started on Aldactone. Blood sugar was managed with long acting Levemir and sliding scale of short acting insulin as needed. TSH was within normal limits. Current dose of Synthroid was continued. Lipid panel was stable, statin was continued. Urinalysis revealed evidence of UTI, and urine culture grew Proteus and Escherichia coli . Patient was on oral antibiotics. Flomax continued. GI prophylaxis provided. Bowel regimen instituted. Psychiatrist seen and evaluated patient. Psychiatrist diagnosed patient with major depressive disorder, anxiety, dementia and insomnia. Psychiatrist provided reality orientation and started patient on Remeron. Supportive care provided. Patient clinically improved and was stable for transfer back to intermediate facility for continuation of care. FINAL DIAGNOSES: Severe hypokalemia First-degree AV lock, Mobitz type 1 as well as episodes 2:1 AV block. Hypertension Hyperlipidemia UTI with Proteus and Escherichia coli History of CVA Diabetes mellitus Anemia Hypothyroidism Major depressive disorder Anxiety Dementia Insomnia DISCHARGE MEDICATIONS: See Medication Reconciliation list. DISCHARGE INSTRUCTIONS: Patient was discharged to intermediate facility. Follow up with medical doctor at the facility. I have been assigned to dictate discharge summary for this account. I was not involved in the patient's management. Kalyn Crowder NP Apr 27, 2018 09:22
== END 2018-04-24 20:45 | DRG 641 ==
LOC: EDBD 16:53 → EMR 17:45 → 2E 18:33 → EDBEDREQ 18:49 → 2E 22:12
DX: E87.6 Hypokalemia (principal); N39.0 Urinary tract infection, site not specified; I10 Essential (primary) hypertension; I44.0 Atrioventricular block, first degree; E78.5 Hyperlipidemia, unspecified; B96.20 Unspecified Escherichia coli [E. coli] as the cause of diseases classified elsewhere; B96.4 Proteus (mirabilis) (morganii) as the cause of diseases classified elsewhere; Z86.73 Personal history of transient ischemic attack (TIA), and cerebral infarction without residual deficits; E11.9 Type 2 diabetes mellitus without complications; D64.9 Anemia, unspecified; E03.9 Hypothyroidism, unspecified; F32.9 Major depressive disorder, single episode, unspecified; F03.90 Unspecified dementia, unspecified severity, without behavioral disturbance, psychotic disturbance, mood disturbance, and anxiety; G47.00 Insomnia, unspecified; E87.0 Hyperosmolality and hypernatremia; F41.9 Anxiety disorder, unspecified; Z66 Do not resuscitate
CPT/HCPCS: 36415; 71045; 78452; 80053; 80061; 81001; 82533; 82550; 82553; 82607; 82728; 82746; 82962; 82977; 83036; 83540; 83550; 83735; 83880; 84100; 84133; 84300; 84439; 84443; 84484; 84550; 85025; 86140; 87081; 87086; 87181; 93005; 93017; 93306; J1815; J2785; J8499

== ENCOUNTER 2018-12-10 23:51 | Inpatient (IN) | payer MEDICARE, MEDICAID ==
[~2018-12-10] VITALS: Ht 180.3 cm; Wt 69.4 kg
[~2018-12-10 23:51] MED LIST changes: +MIRTAZAPINE15 MG ORAL; +POTASSIUM CHLO20 ME3 PO; +SENNA8.6 M2 PO; +SPIRONOLACTONE100 MG ORAL
[2018-12-11 01:08] VITALS: BP 159/78
--- NOTE | 2018-12-11 01:08 | NUR ---
ED Nurse Note: Patient BIBA from SNF with long term complaints of abnormal lab and visibly distended abdomen. Patient has no complaints of pain.
--- NOTE | 2018-12-11 02:30 | NUR ---
ED Nurse Note: Patient resting comfortably no s/s of acute distress. Patient tolerated oral potasium well. Patient tolerating IV peripheral potassium well, reports mild stinging sensation. Flow set to slow with gravity.
--- NOTE | 2018-12-11 04:04 | NUR ---
ED Nurse Note: Patient tolerating second bag of potassium IV well. No complaints of pain or discomfort. Patient is requesting food. ERMD informed and request denied due to distended abdomen.
[2018-12-11 04:30] VITALS: BP 158/73
--- NOTE | 2018-12-11 05:06 | NUR ---
ED Nurse Note: Patient sleeping off and on, vital signs stable after potassium administration.
--- NOTE | 2018-12-11 05:45 | Emergency Room Report ---
History of Present Illness General Source: Patient, Medical Record, EMS Present Illness HPI This is an 78-year-old male from [facility]. He is a DO NOT RESUSCITATE. He presents with chief complaint of abdominal distention with severe colonic ileus on x-ray. Onset for 1 day. Patient has no symptoms. Denies any pain. No nausea no vomiting. No fever chills but denies any other complaint. Allergies: Coded Allergies: No Known Allergies (Unverified , 04/22/17) Patient History Past Medical History: see triage record, old chart reviewed, DM, HTN Past Surgical History: other Pertinent Family History: none Social History: Denies: smoking Immunizations: other Reviewed Nursing Documentation: PMH: Agreed; PSxH: Agreed Nursing Documentation-PMH Hx Cardiac Problems: Yes - HEART FAILURE Hx Hypertension: Yes Hx COPD: No - ANEMIA, HYPOKALEMIA Hx Diabetes: Yes Hx Cancer: No Hx Gastrointestinal Problems: Yes - Gastroparesis Hx Neurological Problems: Yes - Prostatic hyperplasia Hx Cerebrovascular Accident: Yes - R SIDE DEFICIT Hx Transient Ischemic Attacks: Yes Hx Weakness: Yes Review of Systems Eye: Denies: eye pain, blurred vision ENT: Denies: ear pain, nose congestion, throat swelling Respiratory: Denies: cough, shortness of breath Cardiovascular: Denies: chest pain, palpitations Gastrointestinal: Denies: abdominal pain, diarrhea, nausea, vomiting Musculoskeletal: Denies: back pain, joint pain Skin: Denies: rash Neurological: Denies: headache, numbness Endocrine: Denies: increased thirst, increased urine Hematologic/Lymphatic: Denies: easy bruising All Other Systems: negative except mentioned in HPI Physical Exam vitals unremarkable Sp02 EP Interpretation: reviewed, normal General Appearance: well appearing, no apparent distress, alert Head: normocephalic, atraumatic Eyes: bilateral eye PERRL, bilateral eye EOMI ENT: hearing grossly normal, normal pharynx Neck: full range of motion, supple, no meningismus Respiratory: chest non-tender, lungs clear, normal breath sounds Cardiovascular #1: regular rate, rhythm, no murmur Gastrointestinal: non tender, no mass, no organomegaly, no bruit, distended Musculoskeletal: back normal Neurologic: alert Psychiatric: mood/affect normal Skin: warm/dry Procedures Critical Care Time Critical Care Time Critical care is mandated in this patient who presented with severe hypokalemia. Patient require my urgent intervention to attenuate the risks of metabolic collapse which may lead to cardiovascular collapse and . Critical care time is 35 minutes excluding any reportable procedure. Critical care time included evaluation, multiple reevaluation, looking at old charts, interpreting laboratory and diagnostic data, discussing case with patient and family and consultants, and charting. Medical Decision Making Diagnostic Impression: Primary Impression: Sigmoid volvulus Additional Impression: Hypokalemia ER Course Patient presents with abdominal distention and has a sigmoid volvulus with high- grade colonic obstruction. He has a history of colonic ileus. Symptom may be worsened because of his severe hypokalemia. Electrolyte replaced. Patient will be admitted for surgical evaluation. I discussed the case with Dr. Clarke who will admit. I also discussed the case with Dr. Smith who will be surgical consultation. Lab Results Impression labs with severe hypokalemia EKG Diagnostic Results Rate: normal Rhythm: NSR ST Segments: no acute changes Rhythm Strip Diag. Results EP Interpretation: yes Rate: 60 Rhythm: NSR, no PVC's, no ectopy CT/MRI/US Diagnostic Results CT/MRI/US Diagnostic Results : Imaging Test Ordered: CT abdomen and pelvis Impression Read by radiologist. Sigmoid volvulus with colonic obstruction. Status: improved Disposition: ADMITTED INPATIENT Condition: Serious Referrals: Jose Francisco Chand MD (PCP) Francisco Galloway MD Dec 11, 2018 05:45
[2018-12-11 05:54] LABS: HEMATOCRIT 38.7 % (42.0-52.0); HEMOGLOBIN 12.9 G/DL (14.2-18.0); MEAN CORPUSCULAR VOLUME 91 FL (80-99); PLATELET COUNT 214 K/UL (150-450); RED BLOOD COUNT 4.27 M/UL (4.70-6.10); RED CELL DISTRIBUTION WIDTH 11.6 % (11.6-14.8)
[2018-12-11 05:55] LABS: BASOPHILS % (AUTO) 0.4 % (0.0-2.0); EOSINOPHILS % (AUTO) 0.4 % (0.0-3.0); LYMPHOCYTES % (AUTO) 20.8 % (20.0-45.0); MONOCYTES % (AUTO) 5.4 % (1.0-10.0); NEUTROPHILS % (AUTO) 73.1 % (45.0-75.0)
[2018-12-11 05:56] LABS: ANION GAP 6 mmol/L (5-15); BLOOD UREA NITROGEN 20 mg/dL (7-18); CARBON DIOXIDE 33 MMOL/L (21-32); CHLORIDE 106 MMOL/L (98-107); CREATININE 1.2 MG/DL (0.55-1.30); POTASSIUM 1.9 MMOL/L (3.5-5.1); SODIUM 145 MMOL/L (136-145)
[2018-12-11 05:57] LABS: CALCIUM 9.1 MG/DL (8.5-10.1)
--- NOTE | 2018-12-11 06:29 | NUR ---
ED Nurse Note: Patietn currently resting comfortably no s/s of acute distress.
[2018-12-11 06:57] LABS: APPEARANCE,URINE CLOUDY; BILIRUBIN, URINE NEGATIVE (NEGATIVE); GLUCOSE, URINE (UA) NEGATIVE (NEGATIVE); KETONES,URINE NEGATIVE (NEGATIVE); LEUKOCYTE ESTERASE ,URINE 3+ (NEGATIVE); NITRITE,URINE POSITIVE (NEGATIVE); PH,URINE 6 (4.5-8.0); PROTEIN,URINE 2+ (NEGATIVE); UROBILINOGEN,URINE NORMAL MG/DL (0.0-1.0)
[2018-12-11 07:08] LABS: COLOR,URINE YELLOW
--- NOTE | 2018-12-11 07:12 | NUR ---
ED Nurse Note: Patient asigned a room, report called in to Elvira RN, confirmed with charge nurse patient is ok to transfer, related to previous potassium of 1.9. Patient is A&Ox4, no s/s of acute distres vital signs stable.
--- NOTE | 2018-12-11 08:00 | NUR ---
NURSE NOTES: Report received from COIL WINDER. Patient is transferred from ER to Telemetry via gurney without any incident. Patient is AOx3 and able to make needs known. IV site is asymptomatic, patent, and intact. Vital signs are as follows: BP: 155/75, HR: 86 AV pacing on the monitor, RR; 20, O2: 98% RA. Belongings list checked and signed. Bed is in lowest position with side rails up x2 and brakes are engaged. Bed alarm is on. Will contact primary MD regarding inpatient orders.
--- NOTE | 2018-12-11 08:15 | NUR ---
CASE MANAGEMENT:REVIEW 78 YR OLD MALE BIBA FROM [facility] CC: ABNORMAL LABS SI: HYPOKALEMIA. SIGMOID VOLVULUS 98.2 62 13 159/78 100% ON RA K-1.9 IS: KCL : TO TELEMETRY interqual criteria met
[2018-12-11 09:15] LABS: BASOPHILS % (AUTO) 0.3 % (0.0-2.0); EOSINOPHILS % (AUTO) 0.4 % (0.0-3.0); HEMATOCRIT 38.4 % (42.0-52.0); HEMOGLOBIN 12.8 G/DL (14.2-18.0); LYMPHOCYTES % (AUTO) 15.3 % (20.0-45.0); MEAN CORPUSCULAR VOLUME 91 FL (80-99); MONOCYTES % (AUTO) 6.1 % (1.0-10.0); NEUTROPHILS % (AUTO) 77.9 % (45.0-75.0); PLATELET COUNT 205 K/UL (150-450); RED BLOOD COUNT 4.22 M/UL (4.70-6.10); RED CELL DISTRIBUTION WIDTH 11.6 % (11.6-14.8); WHITE BLOOD COUNT 7.5 K/UL (4.8-10.8)
[2018-12-11 09:30] LABS: ANION GAP 7 mmol/L (5-15); BLOOD UREA NITROGEN 18 mg/dL (7-18); CARBON DIOXIDE 31 MMOL/L (21-32); CHLORIDE 107 MMOL/L (98-107); CREATININE 1.1 MG/DL (0.55-1.30); SODIUM 145 MMOL/L (136-145)
[2018-12-11 09:34] LABS: POTASSIUM 2.2 MMOL/L (3.5-5.1)
--- NOTE | 2018-12-11 10:21 | NUR ---
NURSE NOTES: Contacted Dr. Marshall's office regarding potassium level of 2.2 this AM. Awaiting call back.
--- NOTE | 2018-12-11 10:28 | NUR ---
NURSE NOTES: Dr. Marshall is at the bedside. New orders noted and will be carried out.
--- NOTE | 2018-12-11 10:42 | NUR ---
NURSE NOTES: Patient is off the unit at this time.
[2018-12-11] MEDS ORDERED: [UNRECOGNIZED DRUG - REMARK] IV SCH (11:00)
--- NOTE | 2018-12-11 11:10 | Consultation ---
Consult Note Consult Note asked to evaluate for sever hypokalemia This is an 78-year-old male from [facility]. He is a DO NOT RESUSCITATE. He presents with chief complaint of abdominal distention with severe colonic ileus on x-ray. Onset for 1 day. Patient has no symptoms. Denies any pain. No nausea no vomiting. No fever chills but denies any other complaint. No Known Allergies (Unverified , 04/22/17) Past Medical History: see triage record, old chart reviewed, DM, HTN Past Surgical History: other Pertinent Family History: none Social History: Denies: smoking Immunizations: other Reviewed Nursing Documentation: PMH: Agreed; PSxH: Agreed o/e weak sever abd distension and tenderness Hx Cardiac Problems: Yes - HEART FAILURE Hx Hypertension: Yes Hx COPD: No - ANEMIA, HYPOKALEMIA Hx Diabetes: Yes Hx Gastrointestinal Problems: Yes - Gastroparesis Hx Neurological Problems: Yes - Prostatic hyperplasia Hx Cerebrovascular Accident: Yes - R SIDE DEFICIT Hx Transient Ischemic Attacks: Yes Hx Weakness: Yes Assessment/Plan Low K Volvolus Anemia hypothyroid HTN BPH Dementia DM Per GI start with 60meq IV KCL check TSH NPO IV hydrate discussed with ANA PAULA Don for UTI Herve Marshall MD Dec 11, 2018 11:10
[2018-12-11 11:40] LABS: ALANINE AMINOTRANSFERASE 30 U/L (12-78); ALBUMIN 3.1 G/DL (3.4-5.0); ALBUMIN/GLOBULIN RATIO 0.8 (1.0-2.7); ALKALINE PHOSPHATASE 83 U/L (46-116); ANION GAP 10 mmol/L (5-15); ASPARTATE AMINO TRANSFERASE 28 U/L (15-37); BILIRUBIN,TOTAL 0.4 MG/DL (0.2-1.0); BLOOD UREA NITROGEN 18 mg/dL (7-18); CALCIUM 8.9 MG/DL (8.5-10.1); CARBON DIOXIDE 29 MMOL/L (21-32); CHLORIDE 107 MMOL/L (98-107); CREATININE 1.1 MG/DL (0.55-1.30); PHOSPHORUS 3.2 MG/DL (2.5-4.9); SODIUM 145 MMOL/L (136-145)
[2018-12-11 11:43] LABS: POTASSIUM 2.2 MMOL/L (3.5-5.1)
[2018-12-11 12:00] VITALS: BP 154/75
--- NOTE | 2018-12-11 12:00 | NUR ---
NURSE NOTES: Patient returned to the unit. Will start IV infusion. IV site is asymptomatic, patent, and intact.
[2018-12-11] MEDS: D5NS 1,000 ML IV SCH (12:02)
[2018-12-11] MEDS ORDERED: cefTRIAXone 1 GM in D5W 55 ML IVPB ONE (14:00)
--- NOTE | 2018-12-11 14:25 | Consultation ---
History of Present Illness General Date patient seen: Dec 11, 2018 Reason for Hospitalization: Abnormal Labs Present Illness HPI 78 year old male with multiple medical comorbidities who is a intermediate resident presented with worsening abdominal distention. Patient noted to have significantly distended abdomen with tympany, abnormal labs with severe hypokalemia, and concerns for volvulus. Surgery called to evaluate. patient seen, chart reviewed, patient examined. states he is feeling well. no n/v/f/ c. has had similar episodes in the past. hx of chronic colonic distention Allergies: Coded Allergies: No Known Allergies (Unverified , 04/22/17) Medication History Scheduled Amlodipine Besylate* (Amlodipine Besylate*), 5 MG ORAL EVERY 12 HOURS, (Reported ) Ascorbic Acid* (Vitamin C*), 500 MG ORAL TWICE A DAY, (Reported) Aspirin* (Aspir 81*), 81 MG ORAL DAILY, (Reported) Atorvastatin Calcium* (Lipitor*), 10 MG ORAL BEDTIME, (Reported) Finasteride* (Proscar*), 5 MG ORAL DAILY, (Reported) Hydralazine Hcl* (Hydralazine Hcl*), 50 MG ORAL EVERY 8 HOURS, (Reported) Insulin Aspart* (Novolog*), 0 SUBQ AC+HS, (Reported) Insulin Aspart* (Novolog*), 0 SUBQ AC+HS, (Reported) Insulin Detemir (Levemir), 16 UNIT SUBQ TID, (Reported) Lactobacillus Rhamnosus Gg* (Culturelle*), 1 CAP ORAL BID, (Reported) Levofloxacin* (Levaquin*), 250 MG ORAL DAILY, (Reported) Levothyroxine Sodium* (Levothyroxine Sodium*), 25 MCG ORAL DAILY, (Reported) Memantine Hcl* (Namenda*), 10 MG ORAL DAILY, (Reported) Mirtazapine* (Remeron*), 15 MG ORAL BEDTIME, (Reported) Multivitamin With Minerals (Multivitamins With Minerals*), 1 TAB ORAL DAILY, ( Reported) Potassium Chloride (Potassium Chloride), 20 MEQ PO DAILY, (Reported) Sennosides (Senna), 8.6 MG PO HS, (Reported) Spironolactone* (Spironolactone*), 25 MG ORAL DAILY, (Reported) Tamsulosin Hcl (Tamsulosin Hcl*), 0.4 MG ORAL BID, (Reported) Scheduled PRN Acetaminophen* (Acetaminophen 325MG Tablet*), 650 MG ORAL Q6H PRN for Fever/ Headache/Mild Pain, (Reported) Clonidine Hcl* (Catapres*), 0.1 MG ORAL EVERY 4 HOURS PRN for SBP > 160, ( Reported) Simethicone* (Simethicone*), 80 MG ORAL BID PRN for GAS PAIN, (Reported) Patient History Limited by: age History Provided By: Patient, Medical Record, PMD Healthcare decision maker Resuscitation status Do Not Resuscitate Advanced Directive on File No Past Medical/Surgical History Past Medical/Surgical History: (1) Hyperkalemia (2) Diabetes mellitus (3) Heart block AV first degree (4) UTI (urinary tract infection) (5) Gastroparesis (6) Heart block AV second degree (7) Anemia (8) Hypothyroidism (9) Hypokalemia (10) Ileus (11) Sigmoid volvulus Review of Systems Review of Symptoms General ROS: no weight loss or fever Psychological ROS: no depression or mood changes, no memory loss Ophthalmic ROS: no visual changes or eye irritation ENT ROS: no nasal congestion, hearing loss, dizziness Allergy and Immunology ROS: no allergic symptoms or urticaria Hematological and Lymphatic ROS: no swollen glands, unusual bleeding or bruising Endocrine ROS: no polyuria, polydipsia, weight changes, temperature intolerance Respiratory ROS: no cough, shortness of breath, or wheezing Cardiovascular ROS: no chest pain or dyspnea on exertion Gastrointestinal ROS: denies abdominal pain, bright red blood in stool. Musculoskeletal ROS: no myalgias or arthralgias Neurological ROS: no TIA or stroke symptoms Dermatological ROS: no new or changing skin lesions, rashes or pruritis Physical Exam Physical Exam General appearance: alert, cooperative, no distress, appears stated age Head: Normocephalic, without obvious abnormality, atraumatic Eyes: conjunctivae/corneas clear. PERRL, EOM's intact. Fundi benign Throat: Lips, mucosa, and tongue normal. Teeth and gums normal Neck: supple, symmetrical, trachea midline, no adenopathy, thyroid: not enlarged, symmetric, no tenderness/mass/nodules, no carotid bruit and no JVD Lungs: clear to auscultation bilaterally Heart: regular rate and rhythm, S1, S2 normal, no murmur, click, rub or gallop Abdomen: soft, non-tender. decreased Bowel sounds. Very distended, tympanic. No masses, no organomegaly Extremities: extremities normal, atraumatic, no cyanosis or edema Pulses: 2+ and symmetric Skin: Skin color, texture, turgor normal. No rashes or lesions Neurologic: Grossly normal Last 24 Hour Vital Signs Date Time Temp Pulse Resp B/P (MAP) Pulse Ox O2 Delivery O2 Flow Rate FiO2 12/11/18 10:58 Room Air 12/11/18 07:13 98.1 62 20 155/79 100 Room Air 60 12/11/18 05:53 98.1 60 20 155/79 100 Room Air 12/11/18 04:30 98.2 60 10 158/73 100 Room Air 12/11/18 01:08 98.2 62 13 159/78 100 Room Air Intake and Output 12/10/18 12/11/18 19:00 07:00 Intake Total 0 ml Balance 0 ml Intake Oral 0 ml Laboratory Tests Test 12/11/18 01:00 12/11/18 06:45 12/11/18 09:07 White Blood Count 7.0 K/UL (4.8-10.8) 7.5 K/UL (4.8-10.8) Red Blood Count 4.27 M/UL (4.70-6.10) L 4.22 M/UL (4.70-6.10) L Hemoglobin 12.9 G/DL (14.2-18.0) L 12.8 G/DL (14.2-18.0) L Hematocrit 38.7 % (42.0-52.0) L 38.4 % (42.0-52.0) L Mean Corpuscular Volume 91 FL (80-99) 91 FL (80-99) Mean Corpuscular Hemoglobin 30.3 PG (27.0-31.0) 30.4 PG (27.0-31.0) Mean Corpuscular Hemoglobin Concent 33.4 G/DL (32.0-36.0) 33.3 G/DL (32.0-36.0) Red Cell Distribution Width 11.6 % (11.6-14.8) 11.6 % (11.6-14.8) Platelet Count 214 K/UL (150-450) 205 K/UL (150-450) Mean Platelet Volume 7.5 FL (6.5-10.1) 7.6 FL (6.5-10.1) Neutrophils (%) (Auto) 73.1 % (45.0-75.0) 77.9 % (45.0-75.0) H Lymphocytes (%) (Auto) 20.8 % (20.0-45.0) 15.3 % (20.0-45.0) L Monocytes (%) (Auto) 5.4 % (1.0-10.0) 6.1 % (1.0-10.0) Eosinophils (%) (Auto) 0.4 % (0.0-3.0) 0.4 % (0.0-3.0) Basophils (%) (Auto) 0.4 % (0.0-2.0) 0.3 % (0.0-2.0) Sodium Level 145 MMOL/L (136-145) 145 MMOL/L (136-145) Potassium Level 1.9 MMOL/L (3.5-5.1) *L 2.2 MMOL/L (3.5-5.1) *L Chloride Level 106 MMOL/L (98-107) 107 MMOL/L (98-107) Carbon Dioxide Level 33 MMOL/L (21-32) H 29 MMOL/L (21-32) Anion Gap 6 mmol/L (5-15) 10 mmol/L (5-15) Blood Urea Nitrogen 20 mg/dL (7-18) H 18 mg/dL (7-18) Creatinine 1.2 MG/DL (0.55-1.30) 1.1 MG/DL (0.55-1.30) Estimat Glomerular Filtration Rate mL/min (>60) mL/min (>60) Glucose Level 108 MG/DL (74-106) H 116 MG/DL (74-106) H Calcium Level 9.1 MG/DL (8.5-10.1) 8.9 MG/DL (8.5-10.1) Magnesium Level 2.0 MG/DL (1.8-2.4) 2.1 MG/DL (1.8-2.4) Urine Color Yellow Urine Appearance Cloudy Urine pH 6 (4.5-8.0) Urine Specific [place] 1.015 (1.005-1.035) Urine Protein 2+ (NEGATIVE) H Urine Glucose (UA) Negative (NEGATIVE) Urine Ketones Negative (NEGATIVE) Urine Blood 3+ (NEGATIVE) H Urine Nitrite Positive (NEGATIVE) H Urine Bilirubin Negative (NEGATIVE) Urine Urobilinogen Normal MG/DL (0.0-1.0) Urine Leukocyte Esterase 3+ (NEGATIVE) H Urine RBC 10-15 /HPF (0 - 0) H Urine WBC Tntc /HPF (0 - 0) H Urine Squamous Epithelial Cells Occasional /LPF Urine Amorphous Sediment Moderate /LPF (NONE) H Urine Bacteria Moderate /HPF (NONE) H Hemoglobin A1c 6.2 % (4.3-6.0) H Uric Acid 6.9 MG/DL (2.6-7.2) Phosphorus Level 3.2 MG/DL (2.5-4.9) Total Bilirubin 0.4 MG/DL (0.2-1.0) Aspartate Amino Transf (AST/SGOT) 28 U/L (15-37) Alanine Aminotransferase (ALT/SGPT) 30 U/L (12-78) Alkaline Phosphatase 83 U/L (46-116) Total Protein 7.2 G/DL (6.4-8.2) Albumin 3.1 G/DL (3.4-5.0) L Globulin 4.1 g/dL Albumin/Globulin Ratio 0.8 (1.0-2.7) L Thyroid Stimulating Hormone (TSH) 2.232 uiU/mL (0.358-3.740) Microbiology Date/Time Source Procedure Growth Status 12/11/18 06:57 Rectum Received Height (Feet): 5 Height (Inches): 11.00 Weight (Pounds): 200 Medications Current Medications Medications (Trade) Dose Ordered Sig/Kevin Route PRN Reason Start Time Stop Time Status Last Admin Dose Admin Ceftriaxone Sodium 1 gm/ Dextrose 55 ml @ 110 mls/hr ONCE ONCE IVPB 12/11/18 14:00 12/11/18 14:29 Ceftriaxone Sodium 1 gm/ Dextrose 55 ml @ 110 mls/hr Q24H IVPB 12/12/18 14:00 12/19/18 13:59 Dextrose/Sodium Chloride 1,000 ml @ 50 mls/hr Q20H IV 12/11/18 11:30 01/10/19 11:29 12/11/18 12:02 Famotidine (Pepcid I.v.) 20 mg Q12HR IVP 12/11/18 21:00 01/10/19 20:59 Potassium Chloride 100 ml @ 100 mls/hr Q1HR IVPB 12/11/18 11:00 12/11/18 16:59 12/11/18 13:51 Assessment/Plan Problem List: (1) Ileus ICD Codes: K56.7 - Ileus, unspecified SNOMED: 637492003 (2) Sigmoid volvulus Assessment & Plan: 78 year old male with concerns of sigmoid volvulus. afebrile, HD stable, abnormal electrolytes, distended, tympanic, no abd pain. states he is having flatus now. pending final results of barium enema but from report likely has colonic ileus does not seem to clinically have sigmoid volvulus and CT reviewed and more consistent with ileus. npo iv fluids replace electrolytes GI eval for colonoscopy planned for friday trend labs will follow with serial exams AM KUB ICD Codes: K56.2 - Volvulus SNOMED: [id number] Chava Smith Dec 11, 2018 14:25
--- NOTE | 2018-12-11 15:00 | NUR ---
NURSE NOTES: Pateint is asleep but arousable by voice. Denies pain at this time. IV site is asymptomatic, patent, and intact. IVF is infusing at the prescribed rate. AV pacing on the monitor. Will continue to monitor.
[2018-12-11 16:00] VITALS: BP 145/77
--- NOTE | 2018-12-11 17:20 | Diagnostic Imaging Report ---
Indication: Abdominal distention Technique: Spiral acquisitions obtained through the abdomen and pelvis. No oral contrast utilized, per emergency room physician request No IV contrast utilized, per emergency room physician request.. Multiplanar reconstructions were generated. Total dose length product 985 mGycm. CTDIvol(s) 17 mGy. Dose reduction achieved using automated exposure control Comparison: 04/23/2017 Findings: Again demonstrated is massive distention of the distal sigmoid colon. It is more dilated than on the prior exam, measures up to 14 cm in diameter. The distal sigmoid is to the left of the proximal sigmoid. The distal sigmoid just proximal to the rectum is narrowed, with abrupt transition. There is suggestion of swirling of the mesentery around the narrowed portion of sigmoid. However, the remainder the colon is also dilated, and there is no corresponding area of narrowing of the proximal sigmoid. There is no evidence of sigmoid wall thickening or mural gas. There are few sigmoid colon diverticula Small bowel loops are nondilated. No intraperitoneal gas or free fluid is demonstrated. The distal esophagus is mildly dilated and demonstrates a possible hiatal hernia. The stomach is compressed by the dilated colon, but is otherwise unremarkable. The appendix is not definitely demonstrated but there are no findings to suggest acute appendicitis. Lack of IV contrast limits assessment of the solid organs. The gallbladder appears to be compressed by the dilated colon. The liver is grossly unremarkable. The pancreas, spleen are unremarkable. The adrenals are bulky diffusely. This is similar to the previous study. Multiple cysts are again seen in the left kidney. Is a left renal sinus calcification which is probably vascular The right kidney is unremarkable. No renal or ureteral calculi, hydronephrosis, or hydroureter. The bladder is unremarkable. The prostate is somewhat prominent. There is diffuse mild edema of the subcutaneous fat. This was not evident previously. The heart contains pacemaker wires, not evident previously. The included lung bases are clear. The bones demonstrate degenerative spondylosis changes unusual ossification of the bones appears unchanged from the previous exam Impression: Marked colonic distention, evident previously but increased from previous exam of 04/23/2017. There is an abrupt transition at the distal sigmoid, with suggestion of slight swirling of the colonic mesenteric fat. This raises the possibility of a sigmoid volvulus. However, a proximal transition or narrowing is not demonstrated, so findings could just represent chronic functional changes. Consider surgical evaluation and/or colonoscopy Colonic diverticulosis. No evidence of diverticulitis Possible hiatal hernia Bulky adrenals, likely on the basis of generalized hypertrophy, also evident previously Multiple left renal cysts Pacemaker, new since prior exam of 2017 Prominent prostate Unusual osseous mineralization, similar to prior exam, suspect on the basis of chronic osteoporotic changes. This agrees with the preliminary interpretation provided overnight by [facility] teleradiology service.. The CT scanner at [facility] is accredited by the [employer] and the scans are performed using protocols designed to limit radiation exposure to as low as reasonably achievable to attain images of sufficient resolution adequate for diagnostic evaluation.
--- NOTE | 2018-12-11 17:27 | Diagnostic Imaging Report ---
Indication: Abdominal pain, abnormal recent CT scan Technique: Retrograde injection of water-soluble contrast into the rectum. Spot images obtained Comparison: none Findings: All of the available Gastrografin was instilled. This completely fills the rectum. Patient was incontinent and considerable contrast leaked out. Contrast does not retrograde fill the sigmoid colon. Impression: Failure of passage of contrast into the sigmoid colon. This could indicate sigmoid volvulus or other obstructive pathology, as described on recent CT scan. However, this could also just be due to insufficient contrast instillation, as much of the contrast leaked out of the patient due to incontinence and no more water-soluble contrast was available Findings were discussed previously with Dr. Ortiz
[2018-12-11 19:01] LABS: ANION GAP 10 mmol/L (5-15); BLOOD UREA NITROGEN 16 mg/dL (7-18); CARBON DIOXIDE 31 MMOL/L (21-32); CHLORIDE 107 MMOL/L (98-107); CREATININE 0.9 MG/DL (0.55-1.30); SODIUM 147 MMOL/L (136-145)
[2018-12-11 19:06] LABS: POTASSIUM 2.6 MMOL/L (3.5-5.1)
--- NOTE | 2018-12-11 19:20 | NUR ---
NURSE NOTES: Contacted Dr. Marshall regarding patient's K of 2.6 aftr receiving total of 60mEq IV, per MD, order additional 60meQ tonight until tomorrow AM. Will carry out new order.
--- NOTE | 2018-12-11 19:49 | NUR ---
HAND-OFF: Report given to Chemo GOSS. Patient is in stable condition. Endorsed plan of care.
--- NOTE | 2018-12-11 19:50 | NUR ---
NURSE NOTES: Got report from Elvira GOSS. Pt in stable condition. Denies any pain. No s/s of distress noted. Pt resting in bed comfortably. Bed in low and locked position, call light within reach, bedside table within reach. Continue to monitor.
[2018-12-11 20:00] VITALS: BP 155/78
[2018-12-12] VITALS: BP 152/82
--- NOTE | 2018-12-12 00:15 | Consultation ---
DATE OF CONSULTATION: 12/11/2018 CHIEF COMPLAINT: Abdominal distention. HISTORY OF PRESENT ILLNESS: This is an 78-year-old correction patient with past medical history of chronic ileus, poor historian. The patient was transferred to the hospital with increased abdominal distention. The patient was found to have significant abdominal distention on examination. Potassium was found to be 1.9 on admission. GI consult was requested for further evaluation. PAST MEDICAL HISTORY: 1. Anemia. 2. Chronic distention, ileus. 3. Diabetes. 4. Second-degree heart block. 5. Hypothyroidism. ALLERGIES: No known drug allergies. MEDICATIONS: Please see medication reconciliation list. SOCIAL HISTORY: The patient lives in the correction. No recent history of tobacco, alcohol, or drug abuse. FAMILY HISTORY: Noncontributory. PAST SURGICAL HISTORY: Unknown. REVIEW OF SYSTEMS: Limited, the patient is a very poor historian. PHYSICAL EXAMINATION: VITAL SIGNS: Temperature 98.1, pulse 62, respiratory rate 20, and blood pressure 159/79. HEENT: Normocephalic and atraumatic. Sclerae anicteric. NECK: Supple. No obvious evidence of lymphadenopathy. CARDIOVASCULAR: Regular rhythm. Plus S1 and S2. LUNGS: Decreased breath sounds bilaterally based on supine exam. ABDOMEN: Soft and distended. Tympanic to percussion. No rebound. No guarding. No peritoneal sign. EXTREMITIES: No cyanosis, no clubbing, and no edema. LABORATORY AND DIAGNOSTIC DATA: White count 7.5, hemoglobin 12, hematocrit 38, and platelet count 205. Potassium on admission was 1.9. Hemoglobin A1c 6.2. ASSESSMENT: This is an 78-year-old male patient, admitted to the hospital with abdominal distention. I do not have final CT reading, but ER reading was ileus. I spoke with the radiologist. They are not 100% sure that the patient has volvulus. There is possibility of just worsening of chronic ileus versus volvulus. At this time, the patient seems to be asymptomatic without any abdominal pain. Barium enema has been performed but I do not have the report. Our plan will be to, given that the patient is stable, has no white count, no abdominal pain, and CT is not 100% consistent with volvulus, we are going to watch the patient. Surgical input was appreciated. Plan to repeat KUB for tomorrow. Replace K that can also make worsening of the ileus if the potassium is low. Start him on clear liquid diet. Consider doing colonoscopy on Friday if the patient is stable. Tavares Flex Ortiz DR: Lukas JOB#: [id number] CC:
--- NOTE | 2018-12-12 00:45 | History and Physical Report ---
DATE OF ADMISSION: 12/11/2018 HISTORY OF PRESENT ILLNESS: The patient is a poor historian due to dementia. He is admitted for severe hypokalemia and severe ileus, distended colon. The patient also complains of mild abdominal pain and is admitted for sigmoid volvulus, distended colon, and severe ileus. The patient denies nausea or vomiting. The patient however is a poor historian. Denies fever or chills. Denies shortness of breath. Denies cough. PAST MEDICAL HISTORY: Dementia, constipation as well as hypertension, BPH, hyperlipidemia, depression, history of heart block, history of hypothyroidism, gastroparesis, history of NIDDM, and anemia. PAST SURGICAL HISTORY: Pacemaker. ALLERGIES: No known allergies. MEDICATIONS: Aspirin, vitamin C, amlodipine, finasteride, hydralazine, insulin, Levoxyl, spironolactone, Namenda, mirtazapine, potassium. FAMILY HISTORY: Unable to obtain. SOCIAL HISTORY: Unable to obtain. Poor historian. REVIEW OF SYSTEMS: Unable to obtain. Poor historian, however, does complain of vomiting. PHYSICAL EXAMINATION: VITAL SIGNS: Temperature 98.1, pulse is 62, blood pressure 165/79. HEENT: PERRLA. NECK: Supple. No lymphadenopathy. CHEST: Clear to auscultation. CARDIOVASCULAR: Regular rate and rhythm. ABDOMEN: Severely distended. Bowel sounds are present. Diffuse tenderness. EXTREMITIES: No edema. Reflexes ion both sides. NEUROLOGIC: Oriented to name only. The patient has an incidental findings of also multiple left renal cysts and possible hiatal hernia and colonic diverticulosis. LABORATORY DATA: WBC of 7, hemoglobin 12.9, platelets of 214,000. Sodium 145, potassium 3.2, BUN of 18, creatinine of 1.1. ASSESSMENT AND PLAN: 1. Sigmoid volvulus. 2. Severe hypokalemia. I have asked Dr. Ortiz, Dr. Smith, Dr. Marshall to see the patient for the above-mentioned diagnoses and treatment. Jose Francisco Chand M.D. DR: JUANCARLOS JOB#: [id number] CC:
[2018-12-12 04:20] VITALS: BP 149/83
[2018-12-12] MEDS: D5NS 1,000 ML IV SCH (07:00)
--- NOTE | 2018-12-12 07:15 | NUR ---
HAND-OFF: Report given to Gordon GOSS.Endorsed plan of care.
[2018-12-12 07:24] LABS: BASOPHILS % (AUTO) 0.6 % (0.0-2.0); EOSINOPHILS % (AUTO) 0.5 % (0.0-3.0); HEMATOCRIT 37.5 % (42.0-52.0); HEMOGLOBIN 12.6 G/DL (14.2-18.0); MEAN CORPUSCULAR VOLUME 92 FL (80-99); MONOCYTES % (AUTO) 6.5 % (1.0-10.0); NEUTROPHILS % (AUTO) 74.4 % (45.0-75.0); PLATELET COUNT 210 K/UL (150-450); RED CELL DISTRIBUTION WIDTH 11.7 % (11.6-14.8); WHITE BLOOD COUNT 7.5 K/UL (4.8-10.8)
[2018-12-12 07:40] LABS: INR 1.1 (0.9-1.1)
--- NOTE | 2018-12-12 07:40 | NUR ---
NURSE NOTES: Got report from ANA PAULA Carbajal. Pt denies any pain. Patient is breathing even and unlabored. No s/s of distress noted. Pt resting in high fowlers position eating breakfast. Bed in lowest position, locked, and side rails x3. Call light is within reach. Will continue to monitor.
[2018-12-12 07:59] LABS: ALANINE AMINOTRANSFERASE 26 U/L (12-78); ALBUMIN/GLOBULIN RATIO 0.7 (1.0-2.7); ALKALINE PHOSPHATASE 89 U/L (46-116); AMYLASE 114 U/L (25-115); ANION GAP 12 mmol/L (5-15); ASPARTATE AMINO TRANSFERASE 24 U/L (15-37); BILIRUBIN,TOTAL 0.5 MG/DL (0.2-1.0); BLOOD UREA NITROGEN 13 mg/dL (7-18); CALCIUM 8.6 MG/DL (8.5-10.1); CARBON DIOXIDE 30 MMOL/L (21-32); CHLORIDE 107 MMOL/L (98-107); SODIUM 147 MMOL/L (136-145)
[2018-12-12 08:00] VITALS: BP 159/79
[2018-12-12 08:05] LABS: POTASSIUM 1.9 MMOL/L (3.5-5.1)
--- NOTE | 2018-12-12 08:20 | NUR ---
NURSE NOTES: Dr. Marshall was made aware of Potassium 1.9. Telephone orders entered.
--- NOTE | 2018-12-12 09:19 | Diagnostic Imaging Report ---
EXAM: XR Abdomen, 1 Views CLINICAL HISTORY: ABD DIST TECHNIQUE: Frontal view of the abdomen/pelvis. COMPARISON: CT abdomen and pelvis 12/11/18 FINDINGS: Gastrointestinal tract: Marked gaseous dilatation of colon, similar to slightly worsened than prior CT. Bones/joints: Unremarkable. IMPRESSION: Marked gaseous dilatation of colon, similar to slightly worsened than prior CT. Findings consistent with the distal colonic obstruction.
[2018-12-12] MEDS: Spironolactone 25mg tab ORAL SCH ×2 (09:36→20:42)
[2018-12-12 09:48] LABS: ANION GAP 9 mmol/L (5-15); BLOOD UREA NITROGEN 13 mg/dL (7-18); CALCIUM 8.7 MG/DL (8.5-10.1); CARBON DIOXIDE 31 MMOL/L (21-32); CHLORIDE 106 MMOL/L (98-107); CREATININE 1.3 MG/DL (0.55-1.30); SODIUM 146 MMOL/L (136-145)
[2018-12-12 09:51] LABS: POTASSIUM 2.2 MMOL/L (3.5-5.1)
--- NOTE | 2018-12-12 10:00 | NUR ---
NURSE NOTES: Another potassium level was ordered from another doctor and value was received of 2.2 Potassium. Potassium is being treated and will be monitored. Dr. Marshall is already aware.
[2018-12-12 12:00] VITALS: BP 169/82
--- NOTE | 2018-12-12 12:00 | NUR ---
NURSE NOTES: Notify Dr. Marshall about systolic blood pressure > 160. Order will be entered by .
[2018-12-12] MEDS ORDERED: HydrALAZINE 25mg tab ORAL SCH (12:45)
--- NOTE | 2018-12-12 14:17 | Nephrology Progress Note ---
Assessment/Plan Problem List: (1) Hypokalemia (2) UTI (urinary tract infection) (3) HTN (hypertension) (4) Ileus Assessment Low K Volvolus Anemia hypothyroid HTN BPH Dementia DM Plan Per GI 100 meq K , IV Add PO Aldactone Hydralazine for BP add Reglan TSH wnl clear liquids IV hydrate discussed with RN Arian for UTI Subjective ROS Limited/Unobtainable: No Constitutional: Reports: malaise Objective Objective Last 24 Hour Vital Signs Date Time Temp Pulse Resp B/P (MAP) Pulse Ox O2 Delivery O2 Flow Rate FiO2 12/12/18 13:16 169/82 12/12/18 12:00 98.1 60 17 169/82 (111) 95 12/12/18 11:41 60 12/12/18 09:00 Room Air 12/12/18 08:00 98.1 62 17 159/79 (105) 95 12/12/18 07:56 61 12/12/18 04:20 60 12/12/18 04:20 98.2 61 17 149/83 (105) 100 12/12/18 00:00 60 12/12/18 00:00 98.5 61 19 152/82 (105) 100 12/11/18 23:20 Room Air 12/11/18 20:00 60 12/11/18 20:00 99.0 62 18 155/78 (103) 100 12/11/18 16:00 98.0 76 145/77 (99) 12/11/18 15:54 60 Intake and Output 12/11/18 12/12/18 19:00 07:00 # Bowel Movements 1 1 Laboratory Tests 12/11/18 18:10: Sodium Level 147H, Potassium Level 2.6*L, Chloride Level 107, Carbon Dioxide Level 31, Anion Gap 10, Blood Urea Nitrogen 16, Creatinine 0.9, Estimat Glomerular Filtration Rate , Glucose Level 92, Calcium Level 9.0 12/12/18 05:50: Sodium Level 147H, Potassium Level 1.9*L, Chloride Level 107, Carbon Dioxide Level 30, Anion Gap 12, Blood Urea Nitrogen 13, Creatinine 1.0, Estimat Glomerular Filtration Rate , Glucose Level 79, Calcium Level 8.6, White Blood Count 7.5, Red Blood Count 4.10L, Hemoglobin 12.6L, Hematocrit 37.5L, Mean Corpuscular Volume 92, Mean Corpuscular Hemoglobin 30.8, Mean Corpuscular Hemoglobin Concent 33.7, Red Cell Distribution Width 11.7, Platelet Count 210, Mean Platelet Volume 7.0, Neutrophils (%) (Auto) 74.4, Lymphocytes (%) (Auto) 18.0L, Monocytes (%) (Auto) 6.5, Eosinophils (%) (Auto) 0.5, Basophils (%) (Auto ) 0.6, Erythrocyte Sedimentation Rate 28H, Prothrombin Time 11.5, Prothromb Time International Ratio 1.1, Activated Partial Thromboplast Time 28, Total Bilirubin 0.5, Aspartate Amino Transf (AST/SGOT) 24, Alanine Aminotransferase ( ALT/SGPT) 26, Alkaline Phosphatase 89, C-Reactive Protein, Quantitative 0.5, Total Protein 7.1, Albumin 3.0L, Globulin 4.1, Albumin/Globulin Ratio 0.7L, Amylase Level 114, Lipase 82 12/12/18 09:20: Sodium Level 146H, Potassium Level 2.2*L, Chloride Level 106, Carbon Dioxide Level 31, Anion Gap 9, Blood Urea Nitrogen 13, Creatinine 1.3, Estimat Glomerular Filtration Rate , Glucose Level 128H, Calcium Level 8.7 Height (Feet): 5 Height (Inches): 11.00 Weight (Pounds): 200 General Appearance: no apparent distress Cardiovascular: bradycardia Respiratory/Chest: decreased breath sounds Abdomen: distended Herve Marshall MD Dec 12, 2018 14:17
[2018-12-12] MEDS: cefTRIAXone 1 GM in D5W 55 ML IVPB SCH (14:24)
[2018-12-12 16:00] VITALS: BP 147/75
--- NOTE | 2018-12-12 17:11 | General Progress Note ---
Assessment/Plan Assessment/Plan PAST MEDICAL HISTORY: Assessment - chronic abd distention - anemia - DM - Hypothyroid Recommendation - rectal tube trial - roll on (L) lat decub - follow exam Subjective Allergies: Coded Allergies: No Known Allergies (Unverified , 04/22/17) Subjective Feels OK no complaints Objective Last 24 Hour Vital Signs Date Time Temp Pulse Resp B/P (MAP) Pulse Ox O2 Delivery O2 Flow Rate FiO2 12/12/18 16:00 60 12/12/18 16:00 98.1 60 17 147/75 (99) 99 12/12/18 13:16 169/82 12/12/18 12:00 98.1 60 17 169/82 (111) 95 12/12/18 11:41 60 12/12/18 09:00 Room Air 12/12/18 08:00 98.1 62 17 159/79 (105) 95 12/12/18 07:56 61 12/12/18 04:20 60 12/12/18 04:20 98.2 61 17 149/83 (105) 100 12/12/18 00:00 60 12/12/18 00:00 98.5 61 19 152/82 (105) 100 12/11/18 23:20 Room Air 12/11/18 20:00 60 12/11/18 20:00 99.0 62 18 155/78 (103) 100 Intake and Output 12/11/18 12/12/18 18:59 06:59 # Bowel Movements 1 1 Laboratory Tests 12/11/18 18:10: Sodium Level 147H, Potassium Level 2.6*L, Chloride Level 107, Carbon Dioxide Level 31, Anion Gap 10, Blood Urea Nitrogen 16, Creatinine 0.9, Estimat Glomerular Filtration Rate , Glucose Level 92, Calcium Level 9.0 12/12/18 05:50: Sodium Level 147H, Potassium Level 1.9*L, Chloride Level 107, Carbon Dioxide Level 30, Anion Gap 12, Blood Urea Nitrogen 13, Creatinine 1.0, Estimat Glomerular Filtration Rate , Glucose Level 79, Calcium Level 8.6, White Blood Count 7.5, Red Blood Count 4.10L, Hemoglobin 12.6L, Hematocrit 37.5L, Mean Corpuscular Volume 92, Mean Corpuscular Hemoglobin 30.8, Mean Corpuscular Hemoglobin Concent 33.7, Red Cell Distribution Width 11.7, Platelet Count 210, Mean Platelet Volume 7.0, Neutrophils (%) (Auto) 74.4, Lymphocytes (%) (Auto) 18.0L, Monocytes (%) (Auto) 6.5, Eosinophils (%) (Auto) 0.5, Basophils (%) (Auto ) 0.6, Erythrocyte Sedimentation Rate 28H, Prothrombin Time 11.5, Prothromb Time International Ratio 1.1, Activated Partial Thromboplast Time 28, Total Bilirubin 0.5, Aspartate Amino Transf (AST/SGOT) 24, Alanine Aminotransferase ( ALT/SGPT) 26, Alkaline Phosphatase 89, C-Reactive Protein, Quantitative 0.5, Total Protein 7.1, Albumin 3.0L, Globulin 4.1, Albumin/Globulin Ratio 0.7L, Amylase Level 114, Lipase 82 12/12/18 09:20: Sodium Level 146H, Potassium Level 2.2*L, Chloride Level 106, Carbon Dioxide Level 31, Anion Gap 9, Blood Urea Nitrogen 13, Creatinine 1.3, Estimat Glomerular Filtration Rate , Glucose Level 128H, Calcium Level 8.7 Height (Feet): 5 Height (Inches): 11.00 Weight (Pounds): 200 Objective Thin AA man NCAT supple CTA RR abd distended, tympanitic, non tender no edema Naresh Sher MD Dec 12, 2018 17:11
[2018-12-12] MEDS: HydrALAZINE 25mg tab ORAL SCH (18:01)
--- NOTE | 2018-12-12 18:11 | General Progress Note ---
Assessment/Plan Problem List: (1) Hypokalemia ICD Codes: E87.6 - Hypokalemia SNOMED: 17382296 (2) Ileus ICD Codes: K56.7 - Ileus, unspecified SNOMED: 291694659 (3) Gastroparesis ICD Codes: K31.84 - Gastroparesis SNOMED: 532022324 (4) Sigmoid volvulus ICD Codes: K56.2 - Volvulus SNOMED: 149295113 (5) HTN (hypertension) ICD Codes: I10 - Essential (primary) hypertension SNOMED: 52162687 Status: progressing Assessment/Plan severe hypokalemia is improving still distended abdomin sigmoid volvulus will discuss w gi and surgeon Subjective ROS Limited/Unobtainable: Yes Allergies: Coded Allergies: No Known Allergies (Unverified , 04/22/17) Objective Last 24 Hour Vital Signs Date Time Temp Pulse Resp B/P (MAP) Pulse Ox O2 Delivery O2 Flow Rate FiO2 12/12/18 18:01 147/75 12/12/18 16:00 60 12/12/18 16:00 98.1 60 17 147/75 (99) 99 12/12/18 13:16 169/82 12/12/18 12:00 98.1 60 17 169/82 (111) 95 12/12/18 11:41 60 12/12/18 09:00 Room Air 12/12/18 08:00 98.1 62 17 159/79 (105) 95 12/12/18 07:56 61 12/12/18 04:20 60 12/12/18 04:20 98.2 61 17 149/83 (105) 100 12/12/18 00:00 60 12/12/18 00:00 98.5 61 19 152/82 (105) 100 12/11/18 23:20 Room Air 12/11/18 20:00 60 12/11/18 20:00 99.0 62 18 155/78 (103) 100 Intake and Output 12/11/18 12/12/18 18:59 06:59 # Bowel Movements 1 1 Laboratory Tests 12/11/18 18:10: Sodium Level 147H, Potassium Level 2.6*L, Chloride Level 107, Carbon Dioxide Level 31, Anion Gap 10, Blood Urea Nitrogen 16, Creatinine 0.9, Estimat Glomerular Filtration Rate , Glucose Level 92, Calcium Level 9.0 12/12/18 05:50: Sodium Level 147H, Potassium Level 1.9*L, Chloride Level 107, Carbon Dioxide Level 30, Anion Gap 12, Blood Urea Nitrogen 13, Creatinine 1.0, Estimat Glomerular Filtration Rate , Glucose Level 79, Calcium Level 8.6, White Blood Count 7.5, Red Blood Count 4.10L, Hemoglobin 12.6L, Hematocrit 37.5L, Mean Corpuscular Volume 92, Mean Corpuscular Hemoglobin 30.8, Mean Corpuscular Hemoglobin Concent 33.7, Red Cell Distribution Width 11.7, Platelet Count 210, Mean Platelet Volume 7.0, Neutrophils (%) (Auto) 74.4, Lymphocytes (%) (Auto) 18.0L, Monocytes (%) (Auto) 6.5, Eosinophils (%) (Auto) 0.5, Basophils (%) (Auto ) 0.6, Erythrocyte Sedimentation Rate 28H, Prothrombin Time 11.5, Prothromb Time International Ratio 1.1, Activated Partial Thromboplast Time 28, Total Bilirubin 0.5, Aspartate Amino Transf (AST/SGOT) 24, Alanine Aminotransferase ( ALT/SGPT) 26, Alkaline Phosphatase 89, C-Reactive Protein, Quantitative 0.5, Total Protein 7.1, Albumin 3.0L, Globulin 4.1, Albumin/Globulin Ratio 0.7L, Amylase Level 114, Lipase 82 12/12/18 09:20: Sodium Level 146H, Potassium Level 2.2*L, Chloride Level 106, Carbon Dioxide Level 31, Anion Gap 9, Blood Urea Nitrogen 13, Creatinine 1.3, Estimat Glomerular Filtration Rate , Glucose Level 128H, Calcium Level 8.7 Height (Feet): 5 Height (Inches): 11.00 Weight (Pounds): 200 Abdomen: hypoactive bowel sounds, distended, tender Jose Francisco Chand MD Dec 12, 2018 18:11
--- NOTE | 2018-12-12 18:47 | Surgery Progress Note ---
Surgery Progress Note Subjective Additional Comments patient seen and examined. stable he feels well. abd still very distended. denies n/v/f/c. no BM today. lab noted. severe hypo K Objective Last 24 Hour Vital Signs Date Time Temp Pulse Resp B/P (MAP) Pulse Ox O2 Delivery O2 Flow Rate FiO2 12/12/18 18:01 147/75 12/12/18 16:00 60 12/12/18 16:00 98.1 60 17 147/75 (99) 99 12/12/18 13:16 169/82 12/12/18 12:00 98.1 60 17 169/82 (111) 95 12/12/18 11:41 60 12/12/18 09:00 Room Air 12/12/18 08:00 98.1 62 17 159/79 (105) 95 12/12/18 07:56 61 12/12/18 04:20 60 12/12/18 04:20 98.2 61 17 149/83 (105) 100 12/12/18 00:00 60 12/12/18 00:00 98.5 61 19 152/82 (105) 100 12/11/18 23:20 Room Air 12/11/18 20:00 60 12/11/18 20:00 99.0 62 18 155/78 (103) 100 I&O Intake and Output 12/11/18 12/12/18 18:59 06:59 # Bowel Movements 1 1 Cardiovascular: RSR Respiratory: clear Abdomen: soft, distended, decreased bowel sounds Extremities: no tenderness, no cyanosis Laboratory Tests Test 12/12/18 05:50 12/12/18 09:20 White Blood Count 7.5 K/UL (4.8-10.8) Red Blood Count 4.10 M/UL (4.70-6.10) L Hemoglobin 12.6 G/DL (14.2-18.0) L Hematocrit 37.5 % (42.0-52.0) L Mean Corpuscular Volume 92 FL (80-99) Mean Corpuscular Hemoglobin 30.8 PG (27.0-31.0) Mean Corpuscular Hemoglobin Concent 33.7 G/DL (32.0-36.0) Red Cell Distribution Width 11.7 % (11.6-14.8) Platelet Count 210 K/UL (150-450) Mean Platelet Volume 7.0 FL (6.5-10.1) Neutrophils (%) (Auto) 74.4 % (45.0-75.0) Lymphocytes (%) (Auto) 18.0 % (20.0-45.0) L Monocytes (%) (Auto) 6.5 % (1.0-10.0) Eosinophils (%) (Auto) 0.5 % (0.0-3.0) Basophils (%) (Auto) 0.6 % (0.0-2.0) Erythrocyte Sedimentation Rate 28 MM/HR (0-20) H Prothrombin Time 11.5 SEC (9.30-11.50) Prothromb Time International Ratio 1.1 (0.9-1.1) Activated Partial Thromboplast Time 28 SEC (23-33) Sodium Level 147 MMOL/L (136-145) H 146 MMOL/L (136-145) H Potassium Level 1.9 MMOL/L (3.5-5.1) *L 2.2 MMOL/L (3.5-5.1) *L Chloride Level 107 MMOL/L (98-107) 106 MMOL/L (98-107) Carbon Dioxide Level 30 MMOL/L (21-32) 31 MMOL/L (21-32) Anion Gap 12 mmol/L (5-15) 9 mmol/L (5-15) Blood Urea Nitrogen 13 mg/dL (7-18) 13 mg/dL (7-18) Creatinine 1.0 MG/DL (0.55-1.30) 1.3 MG/DL (0.55-1.30) Estimat Glomerular Filtration Rate mL/min (>60) mL/min (>60) Glucose Level 79 MG/DL (74-106) 128 MG/DL (74-106) H Calcium Level 8.6 MG/DL (8.5-10.1) 8.7 MG/DL (8.5-10.1) Total Bilirubin 0.5 MG/DL (0.2-1.0) Aspartate Amino Transf (AST/SGOT) 24 U/L (15-37) Alanine Aminotransferase (ALT/SGPT) 26 U/L (12-78) Alkaline Phosphatase 89 U/L (46-116) C-Reactive Protein, Quantitative 0.5 mg/dL (0.00-0.90) Total Protein 7.1 G/DL (6.4-8.2) Albumin 3.0 G/DL (3.4-5.0) L Globulin 4.1 g/dL Albumin/Globulin Ratio 0.7 (1.0-2.7) L Amylase Level 114 U/L (25-115) Lipase 82 U/L (73-393) Plan Problems: (1) Ileus (2) Sigmoid volvulus Assessment & Plan: 78 year old male with concerns of sigmoid volvulus. afebrile, HD stable, abnormal electrolytes, distended, tympanic, no abd pain. states he is having flatus now. pending final results of barium enema but from report likely has colonic ileus does not seem to clinically have sigmoid volvulus and CT reviewed and more consistent with ileus. Remains very distended, tympanic, non tender. afebrile, HD stable, no leukocytosis hypo K npo iv fluids replace electrolytes GI eval for colonoscopy planned for friday trend labs will follow with serial exams Chava Smith Dec 12, 2018 18:47
--- NOTE | 2018-12-12 19:12 | NUR ---
HAND-OFF: Report given to ANA PAULA Garner. Endorsed about 3 more potassium bags to be given and to monitor blood pressure for medications. Addendum: 12/12/18 at 1920 by Gordon Montiel RN In addition, endorse about rectal tube insertion to be done and urine to be collected. Was not able to obtain the correct supplies for rectal tube.
--- NOTE | 2018-12-12 19:15 | NUR ---
NURSE NOTES: Received report from Adam Montiel RN. Patient in bed AAO X4 with HOB elevated at semi fowlers. No complaints of acute pain at this time. Patient is able to verbalize needs and wants appropriately with no difficulties. IV line intact and patent with prescribed meds ordered. On RA and saturating at 96-98% with no S/S or resp distress noted at this time. Safety precaution in place; siderails x3 up, call light within reach, bed in lowest position, brakes and alarm on at all times. Kept clean, dry and comfortable in bed at all times. Will try and insert Rectal tube as ordered. Brody continue to monitor
[2018-12-12 20:00] VITALS: BP 142/87
[2018-12-13] VITALS: BP 110/61
[2018-12-13] MEDS: HydrALAZINE 25mg tab ORAL SCH ×5 (00:51→23:52)
[2018-12-13] MEDS: D5NS 1,000 ML IV SCH ×2 (00:52→22:53)
--- NOTE | 2018-12-13 03:13 | NUR ---
NURSE NOTES: Patient in bed asleep with no S/S of distress noted at this time. Will continue to monitor
[2018-12-13 04:00] VITALS: BP 160/95
--- NOTE | 2018-12-13 07:13 | NUR ---
HAND-OFF: Report given to Adam Montiel RN. Patient in bed AAOX4 with no S/S of distress. Endorsed plan of care
--- NOTE | 2018-12-13 07:31 | NUR ---
NURSE NOTES: Received report from ANA PAULA Garner. Patient in sleeping in bed HOB elevated at semi fowlers. IV line intact and patent with prescribed meds ordered. On RA with no S/S or resp distress noted at this time. Safety precaution in place; siderails x3 up, call light within reach, bed in lowest position, brakes and alarm on at all times. Will continue plan of care.
[2018-12-13 08:00] VITALS: BP 164/83
[2018-12-13] MEDS: Spironolactone 25mg tab ORAL SCH ×3 (08:44→22:19)
[2018-12-13 09:12] LABS: ALANINE AMINOTRANSFERASE 25 U/L (12-78); ALBUMIN/GLOBULIN RATIO 0.7 (1.0-2.7); ALKALINE PHOSPHATASE 83 U/L (46-116); ANION GAP 12 mmol/L (5-15); ASPARTATE AMINO TRANSFERASE 18 U/L (15-37); BILIRUBIN,TOTAL 0.4 MG/DL (0.2-1.0); BLOOD UREA NITROGEN 9 mg/dL (7-18); CALCIUM 8.3 MG/DL (8.5-10.1); CARBON DIOXIDE 26 MMOL/L (21-32); CHLORIDE 106 MMOL/L (98-107); PHOSPHORUS 2.1 MG/DL (2.5-4.9); SODIUM 144 MMOL/L (136-145)
[2018-12-13 09:13] LABS: POTASSIUM 2.2 MMOL/L (3.5-5.1)
--- NOTE | 2018-12-13 09:40 | NUR ---
NURSE NOTES: Called Dr. Marshall about critical lab results received by [facility] of POtassium 2.2. Dr. Marshall is aware and were entered by MD. Will need to collect urine and continue medication order.
[2018-12-13 12:00] VITALS: BP 158/84
[2018-12-13] MEDS: cefTRIAXone 1 GM in D5W 55 ML IVPB SCH (13:40)
--- NOTE | 2018-12-13 14:36 | Nephrology Progress Note ---
Assessment/Plan Problem List: (1) Hypokalemia (2) UTI (urinary tract infection) (3) HTN (hypertension) (4) Ileus Assessment Low K Volvolus Anemia hypothyroid HTN BPH Dementia DM Plan Per GI K supplement IV and PO PO Aldactone increase dose Hydralazine for BP add Reglan change Rocephin to Cefepime, Pseudomonas UTI TSH wnl clear liquids IV hydrate discussed with RN Subjective ROS Limited/Unobtainable: No Constitutional: Reports: malaise Objective Objective Last 24 Hour Vital Signs Date Time Temp Pulse Resp B/P (MAP) Pulse Ox O2 Delivery O2 Flow Rate FiO2 12/13/18 12:00 98.8 61 18 158/84 (108) 100 12/13/18 11:39 60 12/13/18 11:17 164/83 12/13/18 09:00 Room Air 12/13/18 08:00 99.4 62 18 164/83 (110) 99 12/13/18 07:35 69 12/13/18 06:18 160/95 12/13/18 04:00 99.1 62 19 160/95 (116) 100 12/13/18 04:00 60 12/13/18 00:51 161/82 12/13/18 00:00 97.4 80 18 110/61 (77) 95 12/13/18 00:00 60 12/12/18 21:00 Room Air 12/12/18 20:00 64 12/12/18 20:00 98.8 79 18 142/87 (105) 99 12/12/18 18:01 147/75 12/12/18 16:00 60 12/12/18 16:00 98.1 60 17 147/75 (99) 99 Intake and Output 12/12/18 12/13/18 19:00 07:00 # Voids 1 # Bowel Movements 1 1 Laboratory Tests 12/13/18 07:45: Sodium Level 144, Potassium Level 2.2*L, Chloride Level 106, Carbon Dioxide Level 26, Anion Gap 12, Blood Urea Nitrogen 9, Creatinine 1.0, Estimat Glomerular Filtration Rate , Glucose Level 124H, Calcium Level 8.3L, Phosphorus Level 2.1L, Magnesium Level 1.9, Total Bilirubin 0.4, Aspartate Amino Transf ( AST/SGOT) 18, Alanine Aminotransferase (ALT/SGPT) 25, Alkaline Phosphatase 83, Total Protein 7.1, Albumin 3.0L, Globulin 4.1, Albumin/Globulin Ratio 0.7L 12/13/18 11:06: Urine Random Sodium 53, Urine Potassium Timed 27 Height (Feet): 5 Height (Inches): 11.00 Weight (Pounds): 200 Cardiovascular: normal rate Respiratory/Chest: decreased breath sounds Abdomen: soft, distended Herve Marshall MD Dec 13, 2018 14:36
[2018-12-13] MEDS ORDERED: Cefepime HCl 1 GM in D5W 55 ML IVPB ONE (15:00)
--- NOTE | 2018-12-13 15:00 | NUR ---
NURSE NOTES: Rectal tube inserted at 1500. Initially drainage of 50ml of liquid diarrheal/stool. Addendum: 12/13/18 at 1907 by Gordon Montiel RN *15ml of liquid diarrhea/stool.
--- NOTE | 2018-12-13 15:23 | General Progress Note ---
Assessment/Plan Problem List: (1) Hypokalemia ICD Codes: E87.6 - Hypokalemia SNOMED: 16628576 (2) Ileus ICD Codes: K56.7 - Ileus, unspecified SNOMED: 339926889 (3) Gastroparesis ICD Codes: K31.84 - Gastroparesis SNOMED: 942983442 (4) Sigmoid volvulus ICD Codes: K56.2 - Volvulus SNOMED: 076763198 (5) HTN (hypertension) ICD Codes: I10 - Essential (primary) hypertension SNOMED: 18100317 Status: progressing Assessment/Plan severe hypokalemia is improving still distended abdomin sigmoid volvulus potassium is improving pt has chronic history of persistent hypokalemia dementia gi is doing a procedure Subjective ROS Limited/Unobtainable: Yes Allergies: Coded Allergies: No Known Allergies (Unverified , 04/22/17) Objective Last 24 Hour Vital Signs Date Time Temp Pulse Resp B/P (MAP) Pulse Ox O2 Delivery O2 Flow Rate FiO2 12/13/18 12:00 98.8 61 18 158/84 (108) 100 12/13/18 11:39 60 12/13/18 11:17 164/83 12/13/18 09:00 Room Air 12/13/18 08:00 99.4 62 18 164/83 (110) 99 12/13/18 07:35 69 12/13/18 06:18 160/95 12/13/18 04:00 99.1 62 19 160/95 (116) 100 12/13/18 04:00 60 12/13/18 00:51 161/82 12/13/18 00:00 97.4 80 18 110/61 (77) 95 12/13/18 00:00 60 12/12/18 21:00 Room Air 12/12/18 20:00 64 12/12/18 20:00 98.8 79 18 142/87 (105) 99 12/12/18 18:01 147/75 12/12/18 16:00 60 12/12/18 16:00 98.1 60 17 147/75 (99) 99 Intake and Output 12/12/18 12/13/18 19:00 07:00 # Voids 1 # Bowel Movements 1 1 Laboratory Tests 12/13/18 07:45: Sodium Level 144, Potassium Level 2.2*L, Chloride Level 106, Carbon Dioxide Level 26, Anion Gap 12, Blood Urea Nitrogen 9, Creatinine 1.0, Estimat Glomerular Filtration Rate , Glucose Level 124H, Calcium Level 8.3L, Phosphorus Level 2.1L, Magnesium Level 1.9, Total Bilirubin 0.4, Aspartate Amino Transf ( AST/SGOT) 18, Alanine Aminotransferase (ALT/SGPT) 25, Alkaline Phosphatase 83, Total Protein 7.1, Albumin 3.0L, Globulin 4.1, Albumin/Globulin Ratio 0.7L 12/13/18 11:06: Urine Random Sodium 53, Urine Potassium Timed 27 Height (Feet): 5 Height (Inches): 11.00 Weight (Pounds): 200 Abdomen: distended Jose Francisco Chand MD Dec 13, 2018 15:23
--- NOTE | 2018-12-13 19:08 | NUR ---
HAND-OFF: Report given to ANA PAULA Richards. Patient is resting in bed. No s/s of distress and patient denies pain.
--- NOTE | 2018-12-13 19:10 | NUR ---
NURSE NOTES: Received report from Adam oMntiel RN. Patient in bed AAO X4 with HOB elevated at semi fowlers. No complaints of acute pain at this time. Patient is able to verbalize needs and wants appropriately with no difficulties. IV line intact and patent with prescribed meds ordered. On RA and saturating at 96-98% with no S/S or resp distress noted at this time. Safety precaution in place; siderails x3 up, call light within reach, bed in lowest position, brakes and alarm on at all times. Kept clean, dry and comfortable in bed at all times. Closely monitoring K levels. Treatment initiated and ongoing. Will continue to monitor Rectal tube patent and intact.
--- NOTE | 2018-12-13 19:23 | General Progress Note ---
Assessment/Plan Assessment/Plan Assessment - chronic abd distention - anemia - DM - Hypothyroid - severe hypokalemia Recommendation - rectal tube trial - roll on (L) lat decub - follow exam - replace K - possible colonoscopy once electrolytes corrected Subjective Allergies: Coded Allergies: No Known Allergies (Unverified , 04/22/17) Subjective Feels OK no complaints d/w team re K level and planned colonoscopy Objective Last 24 Hour Vital Signs Date Time Temp Pulse Resp B/P (MAP) Pulse Ox O2 Delivery O2 Flow Rate FiO2 12/13/18 17:29 159/90 12/13/18 16:00 98.7 62 19 98 12/13/18 15:26 60 12/13/18 12:00 98.8 61 18 158/84 (108) 100 12/13/18 11:39 60 12/13/18 11:17 164/83 12/13/18 09:00 Room Air 12/13/18 08:00 99.4 62 18 164/83 (110) 99 12/13/18 07:35 69 12/13/18 06:18 160/95 12/13/18 04:00 99.1 62 19 160/95 (116) 100 12/13/18 04:00 60 12/13/18 00:51 161/82 12/13/18 00:00 97.4 80 18 110/61 (77) 95 12/13/18 00:00 60 12/12/18 21:00 Room Air 12/12/18 20:00 64 12/12/18 20:00 98.8 79 18 142/87 (105) 99 Intake and Output 12/12/18 12/13/18 19:00 07:00 # Voids 1 # Bowel Movements 1 1 Laboratory Tests 12/13/18 07:45: Sodium Level 144, Potassium Level 2.2*L, Chloride Level 106, Carbon Dioxide Level 26, Anion Gap 12, Blood Urea Nitrogen 9, Creatinine 1.0, Estimat Glomerular Filtration Rate , Glucose Level 124H, Calcium Level 8.3L, Phosphorus Level 2.1L, Magnesium Level 1.9, Total Bilirubin 0.4, Aspartate Amino Transf ( AST/SGOT) 18, Alanine Aminotransferase (ALT/SGPT) 25, Alkaline Phosphatase 83, Total Protein 7.1, Albumin 3.0L, Globulin 4.1, Albumin/Globulin Ratio 0.7L 12/13/18 11:06: Urine Random Sodium 53, Urine Potassium Timed 27 Height (Feet): 5 Height (Inches): 11.00 Weight (Pounds): 200 Objective Thin AA man NCAT supple CTA RR abd distended, tympanitic, non tender no edema Naresh Sher MD Dec 13, 2018 19:23
[2018-12-13 20:00] VITALS: BP 153/90
[2018-12-13] MEDS ORDERED: Potassium Phosphate 20 MM in NS 275 ML IV ONE (21:00)
--- NOTE | 2018-12-13 21:13 | Surgery Progress Note ---
Surgery Progress Note Subjective Additional Comments hypoK refractory to replacement thus far. abdomen distended but non tender. afebrile, HD stable. no significant BM +flatus Objective Last 24 Hour Vital Signs Date Time Temp Pulse Resp B/P (MAP) Pulse Ox O2 Delivery O2 Flow Rate FiO2 12/13/18 17:29 159/90 12/13/18 16:00 98.7 62 19 98 12/13/18 15:26 60 12/13/18 12:00 98.8 61 18 158/84 (108) 100 12/13/18 11:39 60 12/13/18 11:17 164/83 12/13/18 09:00 Room Air 12/13/18 08:00 99.4 62 18 164/83 (110) 99 12/13/18 07:35 69 12/13/18 06:18 160/95 12/13/18 04:00 99.1 62 19 160/95 (116) 100 12/13/18 04:00 60 12/13/18 00:51 161/82 12/13/18 00:00 97.4 80 18 110/61 (77) 95 12/13/18 00:00 60 I&O Intake and Output 12/12/18 12/13/18 18:59 06:59 # Voids 1 # Bowel Movements 1 1 Cardiovascular: RSR Respiratory: clear Abdomen: soft, distended, absent bowel sounds, other Extremities: no tenderness, no cyanosis Laboratory Tests Test 12/13/18 07:45 12/13/18 11:06 Sodium Level 144 MMOL/L (136-145) Potassium Level 2.2 MMOL/L (3.5-5.1) *L Chloride Level 106 MMOL/L (98-107) Carbon Dioxide Level 26 MMOL/L (21-32) Anion Gap 12 mmol/L (5-15) Blood Urea Nitrogen 9 mg/dL (7-18) Creatinine 1.0 MG/DL (0.55-1.30) Estimat Glomerular Filtration Rate mL/min (>60) Glucose Level 124 MG/DL (74-106) H Calcium Level 8.3 MG/DL (8.5-10.1) L Phosphorus Level 2.1 MG/DL (2.5-4.9) L Magnesium Level 1.9 MG/DL (1.8-2.4) Total Bilirubin 0.4 MG/DL (0.2-1.0) Aspartate Amino Transf (AST/SGOT) 18 U/L (15-37) Alanine Aminotransferase (ALT/SGPT) 25 U/L (12-78) Alkaline Phosphatase 83 U/L (46-116) Total Protein 7.1 G/DL (6.4-8.2) Albumin 3.0 G/DL (3.4-5.0) L Globulin 4.1 g/dL Albumin/Globulin Ratio 0.7 (1.0-2.7) L Urine Random Sodium 53 mmol/L (20-110) Urine Potassium Timed 27 mmol/L (12-62) Plan Problems: (1) Ileus (2) Sigmoid volvulus Assessment & Plan: 78 year old male with concerns of sigmoid volvulus. afebrile, HD stable, abnormal electrolytes, distended, tympanic, no abd pain. states he is having flatus now. pending final results of barium enema but from report likely has colonic ileus does not seem to clinically have sigmoid volvulus and CT reviewed and more consistent with ileus. Remains very distended, tympanic, non tender. afebrile, HD stable, no leukocytosis hypo K npo iv fluids replace electrolytes GI eval for colonoscopy planned for friday trend labs will follow with serial exams Chava Smith Dec 13, 2018 21:13
[2018-12-13] MEDS: Cefepime HCl 1 GM in D5W 55 ML IVPB SCH (22:51)
[2018-12-14] VITALS (7 sets, daily range): BP systolic 143–181; BP diastolic 84–97
[2018-12-14] MEDS ORDERED: Potassium Phosphate 20 MM in NS 275 ML IV ONE ×2
--- NOTE | 2018-12-14 03:45 | NUR ---
NURSE NOTES: Patient in bed asleep with no complaints of acute pain at this time. Will continue to monitor
[2018-12-14] MEDS: Spironolactone 25mg tab ORAL SCH ×3 (06:01→20:48)
[2018-12-14] MEDS: HydrALAZINE 25mg tab ORAL SCH ×5 (06:01→20:50)
[2018-12-14 07:28] LABS: ALANINE AMINOTRANSFERASE 22 U/L (12-78); ALBUMIN/GLOBULIN RATIO 0.7 (1.0-2.7); ALKALINE PHOSPHATASE 87 U/L (46-116); ANION GAP 10 mmol/L (5-15); ASPARTATE AMINO TRANSFERASE 28 U/L (15-37); BILIRUBIN,TOTAL 0.4 MG/DL (0.2-1.0); BLOOD UREA NITROGEN 7 mg/dL (7-18); CALCIUM 8.3 MG/DL (8.5-10.1); CARBON DIOXIDE 26 MMOL/L (21-32); CHLORIDE 108 MMOL/L (98-107); PHOSPHORUS 2.6 MG/DL (2.5-4.9); SODIUM 145 MMOL/L (136-145)
[2018-12-14 07:29] LABS: POTASSIUM 2.4 MMOL/L (3.5-5.1)
--- NOTE | 2018-12-14 07:30 | NUR ---
HAND-OFF: Report given to Sydney Dean RN. Patient in stable condition, and will endorse plan of care.
--- NOTE | 2018-12-14 07:49 | NUR ---
NURSE NOTES: Received report from ANA PAULA Garner. Patient in bed resting, no active s/s cardiac, respiratory distress noticed at this time, denies pain at this time. Patient on room air, AV paced HR 73, AOx4. IV sited on left FA 22G, asymptomatic, patent, intact, IV running at prescribed rate. Rectal tube in placed, draining well. Bed in lowest position, side rails upx3, call light within reach. Will continue to monitor.
--- NOTE | 2018-12-14 10:58 | Nephrology Progress Note ---
Assessment/Plan Problem List: (1) Hypokalemia Assessment: persistant (2) UTI (urinary tract infection) (3) HTN (hypertension) (4) Ileus Assessment Low K Volvolus Anemia hypothyroid HTN BPH Dementia DM Plan Per GI K supplement IV and PO again today PO Aldactone increase dose Hydralazine for BP add Reglan change Rocephin to Cefepime, Pseudomonas UTI TSH wnl clear liquids IV hydrate discussed with RN Subjective ROS Limited/Unobtainable: No Constitutional: Reports: malaise, weakness Objective Objective Last 24 Hour Vital Signs Date Time Temp Pulse Resp B/P (MAP) Pulse Ox O2 Delivery O2 Flow Rate FiO2 12/14/18 09:00 Room Air 12/14/18 08:00 98.8 70 16 161/88 (112) 99 12/14/18 08:00 68 12/14/18 06:01 157/93 12/14/18 04:00 72 12/14/18 04:00 98.1 73 16 157/93 (114) 99 12/14/18 00:00 99.8 61 17 166/89 (114) 100 12/14/18 00:00 60 12/13/18 23:52 167/77 12/13/18 21:00 Room Air 12/13/18 20:00 60 12/13/18 20:00 96.6 60 17 153/90 (111) 99 12/13/18 17:29 159/90 12/13/18 16:00 98.7 62 19 98 12/13/18 15:26 60 12/13/18 12:00 98.8 61 18 158/84 (108) 100 12/13/18 11:39 60 12/13/18 11:17 164/83 Intake and Output 12/13/18 12/14/18 19:00 07:00 Intake Total 480 ml Balance 480 ml Intake Oral 480 ml # Voids 1 1 # Bowel Movements 1 3 Laboratory Tests 12/13/18 11:06: Urine Random Sodium 53, Urine Potassium Timed 27 12/14/18 04:55: Sodium Level 145, Potassium Level 2.4*L, Chloride Level 108H, Carbon Dioxide Level 26, Anion Gap 10, Blood Urea Nitrogen 7, Creatinine 1.0, Estimat Glomerular Filtration Rate , Glucose Level 132H, Calcium Level 8.3L, Phosphorus Level 2.6, Magnesium Level 1.7L, Total Bilirubin 0.4, Aspartate Amino Transf ( AST/SGOT) 28, Alanine Aminotransferase (ALT/SGPT) 22, Alkaline Phosphatase 87, Total Protein 7.3, Albumin 3.0L, Globulin 4.3, Albumin/Globulin Ratio 0.7L Height (Feet): 5 Height (Inches): 11.00 Weight (Pounds): 200 General Appearance: no apparent distress Cardiovascular: normal rate Respiratory/Chest: decreased breath sounds Abdomen: distended Herve Marshall MD Dec 14, 2018 10:58
[2018-12-14] MEDS: Cefepime HCl 1 GM in D5W 55 ML IVPB SCH (11:25)
--- NOTE | 2018-12-14 11:50 | GI Progress Note ---
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 Ortiz. Assessment/Plan Assessment - chronic abd distention - anemia - DM - Hypothyroid - severe hypokalemia Recommendation - colonoscopy scheduled for tomorrow. - NPO @ VT> - rectal tube trial - roll on (L) lat decub - follow exam - replace K The patient was seen and examined at bedside and all new and available data was reviewed in the patients chart. I agree with the above findings, impression and plan. (Patient seen earlier today. Signature stamp does not reflect patient encounter time.). - Tavares Ortiz MD Subjective Gastrointestinal/Abdominal: Reports: no symptoms Subjective limited Objective Last 24 Hour Vital Signs Date Time Temp Pulse Resp B/P (MAP) Pulse Ox O2 Delivery O2 Flow Rate FiO2 12/14/18 09:00 Room Air 12/14/18 08:00 98.8 70 16 161/88 (112) 99 12/14/18 08:00 68 12/14/18 06:01 157/93 12/14/18 04:00 72 12/14/18 04:00 98.1 73 16 157/93 (114) 99 12/14/18 00:00 99.8 61 17 166/89 (114) 100 12/14/18 00:00 60 12/13/18 23:52 167/77 12/13/18 21:00 Room Air 12/13/18 20:00 60 12/13/18 20:00 96.6 60 17 153/90 (111) 99 12/13/18 17:29 159/90 12/13/18 16:00 98.7 62 19 98 12/13/18 15:26 60 12/13/18 12:00 98.8 61 18 158/84 (108) 100 Intake and Output 12/13/18 12/14/18 19:00 07:00 Intake Total 480 ml Balance 480 ml Intake Oral 480 ml # Voids 1 1 # Bowel Movements 1 3 Laboratory Tests Test 12/14/18 04:55 Sodium Level 145 MMOL/L (136-145) Potassium Level 2.4 MMOL/L (3.5-5.1) *L Chloride Level 108 MMOL/L (98-107) H Carbon Dioxide Level 26 MMOL/L (21-32) Anion Gap 10 mmol/L (5-15) Blood Urea Nitrogen 7 mg/dL (7-18) Creatinine 1.0 MG/DL (0.55-1.30) Estimat Glomerular Filtration Rate mL/min (>60) Glucose Level 132 MG/DL (74-106) H Calcium Level 8.3 MG/DL (8.5-10.1) L Phosphorus Level 2.6 MG/DL (2.5-4.9) Magnesium Level 1.7 MG/DL (1.8-2.4) L Total Bilirubin 0.4 MG/DL (0.2-1.0) Aspartate Amino Transf (AST/SGOT) 28 U/L (15-37) Alanine Aminotransferase (ALT/SGPT) 22 U/L (12-78) Alkaline Phosphatase 87 U/L (46-116) Total Protein 7.3 G/DL (6.4-8.2) Albumin 3.0 G/DL (3.4-5.0) L Globulin 4.3 g/dL Albumin/Globulin Ratio 0.7 (1.0-2.7) L Height (Feet): 5 Height (Inches): 11.00 Weight (Pounds): 200 General Appearance: WD/WN, no apparent distress, alert Cardiovascular: normal rate Respiratory/Chest: normal breath sounds, no respiratory distress Abdominal Exam: normal bowel sounds, non tender, soft Extremities: normal range of motion, non-tender Cristina Galloway [employer] Dec 14, 2018 11:50
--- NOTE | 2018-12-14 13:17 | Surgery Progress Note ---
Surgery Progress Note Subjective Additional Comments exam unchanged. colonoscopy cancelled by anesthesia for hypokalemia Objective Last 24 Hour Vital Signs Date Time Temp Pulse Resp B/P (MAP) Pulse Ox O2 Delivery O2 Flow Rate FiO2 12/14/18 12:44 161/88 12/14/18 09:00 Room Air 12/14/18 08:00 98.8 70 16 161/88 (112) 99 12/14/18 08:00 68 12/14/18 06:01 157/93 12/14/18 04:00 72 12/14/18 04:00 98.1 73 16 157/93 (114) 99 12/14/18 00:00 99.8 61 17 166/89 (114) 100 12/14/18 00:00 60 12/13/18 23:52 167/77 12/13/18 21:00 Room Air 12/13/18 20:00 60 12/13/18 20:00 96.6 60 17 153/90 (111) 99 12/13/18 17:29 159/90 12/13/18 16:00 98.7 62 19 98 12/13/18 15:26 60 I&O Intake and Output 12/13/18 12/14/18 19:00 07:00 Intake Total 480 ml Balance 480 ml Intake Oral 480 ml # Voids 1 1 # Bowel Movements 1 3 Cardiovascular: RSR Respiratory: clear Abdomen: soft, distended, non-tender, decreased bowel sounds Extremities: no tenderness, no cyanosis Laboratory Tests Test 12/14/18 04:55 Sodium Level 145 MMOL/L (136-145) Potassium Level 2.4 MMOL/L (3.5-5.1) *L Chloride Level 108 MMOL/L (98-107) H Carbon Dioxide Level 26 MMOL/L (21-32) Anion Gap 10 mmol/L (5-15) Blood Urea Nitrogen 7 mg/dL (7-18) Creatinine 1.0 MG/DL (0.55-1.30) Estimat Glomerular Filtration Rate mL/min (>60) Glucose Level 132 MG/DL (74-106) H Calcium Level 8.3 MG/DL (8.5-10.1) L Phosphorus Level 2.6 MG/DL (2.5-4.9) Magnesium Level 1.7 MG/DL (1.8-2.4) L Total Bilirubin 0.4 MG/DL (0.2-1.0) Aspartate Amino Transf (AST/SGOT) 28 U/L (15-37) Alanine Aminotransferase (ALT/SGPT) 22 U/L (12-78) Alkaline Phosphatase 87 U/L (46-116) Total Protein 7.3 G/DL (6.4-8.2) Albumin 3.0 G/DL (3.4-5.0) L Globulin 4.3 g/dL Albumin/Globulin Ratio 0.7 (1.0-2.7) L Plan Problems: (1) Ileus (2) Sigmoid volvulus Assessment & Plan: 78 year old male with concerns of sigmoid volvulus. afebrile, HD stable, abnormal electrolytes, distended, tympanic, no abd pain. states he is having flatus now. pending final results of barium enema but from report likely has colonic ileus does not seem to clinically have sigmoid volvulus and CT reviewed and more consistent with ileus. Remains very distended, tympanic, non tender. afebrile, HD stable, no leukocytosis hypo K npo iv fluids replace electrolytes GI eval for colonoscopy planned for tomorrow now trend labs will follow with serial exams Chava Smith Dec 14, 2018 13:17
[2018-12-14] MEDS ORDERED: Nulytely 4L ORAL SCH (16:00)
[2018-12-14] MEDS ORDERED: Tubing IV Secondary IV ONE (16:34)
[2018-12-14] MEDS: D5NS 1,000 ML IV SCH (18:36)
--- NOTE | 2018-12-14 20:02 | NUR ---
HAND-OFF: Report given to ANA PAULA Rodriguez.
--- NOTE | 2018-12-14 20:03 | NUR ---
NURSE NOTES: Received pt from ANA PAULA Wesley. Pt awake, alert, and feeling nauseated. Bed in lowest position. Call light within reach.Will continue to monitor.
--- NOTE | 2018-12-14 20:40 | NUR ---
NURSE NOTES: Notified Dr. Chand of pts high BP, 181 systolic, and nausea. Awaiting call back. Will give aldactone and hydralazine early since pt has no PRN BP medications. Will continue to monitor.
--- NOTE | 2018-12-14 21:51 | General Progress Note ---
Assessment/Plan Problem List: (1) Hypokalemia ICD Codes: E87.6 - Hypokalemia SNOMED: 29739458 (2) Ileus ICD Codes: K56.7 - Ileus, unspecified SNOMED: 201607513 (3) Gastroparesis ICD Codes: K31.84 - Gastroparesis SNOMED: 532127930 (4) Sigmoid volvulus ICD Codes: K56.2 - Volvulus SNOMED: 684834588 (5) HTN (hypertension) ICD Codes: I10 - Essential (primary) hypertension SNOMED: 64806158 Status: progressing Assessment/Plan severe hypokalemia is improving still distended abdomin sigmoid volvulus potassium is improving pt has chronic history of persistent hypokalemia had nausea elevated bp Subjective ROS Limited/Unobtainable: Yes Gastrointestinal/Abdominal: Reports: nausea Allergies: Coded Allergies: No Known Allergies (Unverified , 04/22/17) Objective Last 24 Hour Vital Signs Date Time Temp Pulse Resp B/P (MAP) Pulse Ox O2 Delivery O2 Flow Rate FiO2 12/14/18 20:50 181/96 12/14/18 20:40 100.7 12/14/18 20:00 101.5 64 20 181/96 (124) 100 12/14/18 17:24 159/87 12/14/18 16:00 98.2 60 20 150/84 (106) 99 12/14/18 16:00 66 12/14/18 12:00 97.6 67 20 178/92 (120) 99 12/14/18 12:00 64 12/14/18 12:00 159/87 12/14/18 09:00 Room Air 12/14/18 08:00 98.8 70 16 161/88 (112) 99 12/14/18 08:00 68 12/14/18 06:01 157/93 12/14/18 04:00 72 12/14/18 04:00 98.1 73 16 157/93 (114) 99 12/14/18 00:00 99.8 61 17 166/89 (114) 100 12/14/18 00:00 60 12/13/18 23:52 167/77 Intake and Output 12/13/18 12/14/18 19:00 07:00 Intake Total 480 ml Balance 480 ml Intake Oral 480 ml # Voids 1 1 # Bowel Movements 1 3 Laboratory Tests 12/14/18 04:55: Sodium Level 145, Potassium Level 2.4*L, Chloride Level 108H, Carbon Dioxide Level 26, Anion Gap 10, Blood Urea Nitrogen 7, Creatinine 1.0, Estimat Glomerular Filtration Rate , Glucose Level 132H, Calcium Level 8.3L, Phosphorus Level 2.6, Magnesium Level 1.7L, Total Bilirubin 0.4, Aspartate Amino Transf ( AST/SGOT) 28, Alanine Aminotransferase (ALT/SGPT) 22, Alkaline Phosphatase 87, Total Protein 7.3, Albumin 3.0L, Globulin 4.3, Albumin/Globulin Ratio 0.7L Height (Feet): 5 Height (Inches): 11.00 Weight (Pounds): 200 Abdomen: distended Jose Francisco Chand MD Dec 14, 2018 21:51
--- NOTE | 2018-12-14 22:21 | NUR ---
NURSE NOTES: Received orders for Hydralazine 10 mg IV Q4 for BP > [address] Marshall and also zofran 4mg po q5/prn from Dr. Chand. Will input order for BP but asked Dr. Chand for an IV order of zofran. Awaiting call back.
--- NOTE | 2018-12-14 22:46 | NUR ---
NURSE NOTES: pt refusing to drink golytly. Called and left a message with Seymour and replied with orders for magnesium citrate and miralax 238. Will input orders and will continue to monitor.
[2018-12-15] VITALS (11 sets, daily range): BP systolic 127–201; BP diastolic 57–100
[2018-12-15] MEDS ORDERED: Magnesium Citrate Liq Btl ORAL ONE (01:00)
[2018-12-15] MEDS ORDERED: Polyethylene Glycol 238gm bottle ORAL ONE (01:00)
[2018-12-15] MEDS: Cefepime HCl 1 GM in D5W 55 ML IVPB SCH ×3 (01:38→21:50)
--- NOTE | 2018-12-15 02:38 | NUR ---
NURSE NOTES: Observed pt putting hands far back in his throat attempting to make himself vomit after i gave him sips of the magnesium citrate. Notified matthew. Will continue to monitor.
[2018-12-15] MEDS: Spironolactone 25mg tab ORAL SCH ×3 (04:57→21:51)
[2018-12-15] MEDS: HydrALAZINE 25mg tab ORAL SCH ×3 (04:57→17:35)
--- NOTE | 2018-12-15 05:03 | NUR ---
NURSE NOTES: Pt refused colonoscopy and refused drinking mag citrate this morning because " the medicine is bitter". Will notify MD and will continue to monitor.
--- NOTE | 2018-12-15 07:08 | NUR ---
HAND-OFF: Report given to ANA PAULA Mosqueda. Endorsed that pt refused to drink mag citrate.
--- NOTE | 2018-12-15 07:21 | NUR ---
NURSE NOTES: Received report from ANA PAULA Rodriguez. Patient in bed sleeping, no active s/s cardiac, respiratory distress noticed at this time, no s/s of pain noted. Patient on room air, AOx4. IV on LFA 22G, asymptomatic, patent, intact. Bed in lowest position, side rails upx3, call light within reach. Will continue to monitor.
[2018-12-15 08:38] LABS: HEMATOCRIT 41.9 % (42.0-52.0); MEAN CORPUSCULAR VOLUME 93 FL (80-99); PLATELET COUNT 215 K/UL (150-450); RED BLOOD COUNT 4.53 M/UL (4.70-6.10); RED CELL DISTRIBUTION WIDTH 12.2 % (11.6-14.8); WHITE BLOOD COUNT 8.8 K/UL (4.8-10.8)
[2018-12-15 08:52] LABS: INR 1.1 (0.9-1.1)
[2018-12-15 09:24] LABS: ANION GAP 15 mmol/L (5-15); BLOOD UREA NITROGEN 7 mg/dL (7-18); CALCIUM 8.5 MG/DL (8.5-10.1); CARBON DIOXIDE 21 MMOL/L (21-32); CHLORIDE 111 MMOL/L (98-107); CREATININE 1.1 MG/DL (0.55-1.30); SODIUM 147 MMOL/L (136-145)
[2018-12-15 09:27] LABS: POTASSIUM 2.1 MMOL/L (3.5-5.1)
--- NOTE | 2018-12-15 09:28 | NUR ---
NURSE NOTES: Daxa Cole from lab called to report Potassium at 2.1. Will notify MD and continue to monitor.
--- NOTE | 2018-12-15 11:15 | GI Progress Note ---
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 Ortiz Assessment/Plan Assessment - chronic abd distention - anemia - DM - Hypothyroid - severe hypokalemia Recommendation - Colonoscopy rescheduled due to hypokalemia - Patient must be turned every 2 hours - rectal tube for colonic decompression - roll on (L) lat decub - follow exam - replace K The patient was seen and examined at bedside and all new and available data was reviewed in the patients chart. I agree with the above findings, impression and plan. (Patient seen earlier today. Signature stamp does not reflect patient encounter time.). - Tavares Ortiz MD Subjective Subjective Abdominal distention Objective Last 24 Hour Vital Signs Date Time Temp Pulse Resp B/P (MAP) Pulse Ox O2 Delivery O2 Flow Rate FiO2 12/15/18 09:00 Room Air 12/15/18 08:00 63 12/15/18 08:00 97.7 63 20 146/79 (101) 100 12/15/18 04:58 173/94 (120) 12/15/18 04:57 201/100 12/15/18 04:00 98.0 67 20 201/100 (133) 99 12/15/18 04:00 62 12/15/18 00:00 69 12/15/18 00:00 99.5 73 20 167/93 (117) 99 12/14/18 22:41 68 143/97 (112) 12/14/18 21:19 99.3 12/14/18 21:00 Room Air 12/14/18 20:50 181/96 12/14/18 20:40 100.7 12/14/18 20:00 101.5 64 20 181/96 (124) 100 12/14/18 17:24 159/87 12/14/18 16:00 98.2 60 20 150/84 (106) 99 12/14/18 16:00 66 12/14/18 12:00 97.6 67 20 178/92 (120) 99 12/14/18 12:00 64 12/14/18 12:00 159/87 Intake and Output 12/14/18 12/15/18 19:00 07:00 Intake Total 140 ml Output Total 600 ml 200 ml Balance -460 ml -200 ml Intake Oral 140 ml Output Urine Total 600 ml Emesis 200 ml # Bowel Movements 1 1 Laboratory Tests Test 12/15/18 07:52 White Blood Count 8.8 K/UL (4.8-10.8) Red Blood Count 4.53 M/UL (4.70-6.10) L Hemoglobin 14.0 G/DL (14.2-18.0) L Hematocrit 41.9 % (42.0-52.0) L Mean Corpuscular Volume 93 FL (80-99) Mean Corpuscular Hemoglobin 31.0 PG (27.0-31.0) Mean Corpuscular Hemoglobin Concent 33.5 G/DL (32.0-36.0) Red Cell Distribution Width 12.2 % (11.6-14.8) Platelet Count 215 K/UL (150-450) Mean Platelet Volume 6.5 FL (6.5-10.1) Neutrophils (%) (Auto) % (45.0-75.0) Lymphocytes (%) (Auto) % (20.0-45.0) Monocytes (%) (Auto) % (1.0-10.0) Eosinophils (%) (Auto) % (0.0-3.0) Basophils (%) (Auto) % (0.0-2.0) Differential Total Cells Counted 100 Neutrophils % (Manual) 86 % (45-75) H Lymphocytes % (Manual) 11 % (20-45) L Monocytes % (Manual) 3 % (1-10) Eosinophils % (Manual) 0 % (0-3) Basophils % (Manual) 0 % (0-2) Band Neutrophils 0 % (0-8) Platelet Estimate Adequate Platelet Morphology Normal Red Blood Cell Morphology Normal Prothrombin Time 12.0 SEC (9.30-11.50) H Prothromb Time International Ratio 1.1 (0.9-1.1) Activated Partial Thromboplast Time 27 SEC (23-33) Sodium Level 147 MMOL/L (136-145) H Potassium Level 2.1 MMOL/L (3.5-5.1) *L Chloride Level 111 MMOL/L (98-107) H Carbon Dioxide Level 21 MMOL/L (21-32) Anion Gap 15 mmol/L (5-15) Blood Urea Nitrogen 7 mg/dL (7-18) Creatinine 1.1 MG/DL (0.55-1.30) Estimat Glomerular Filtration Rate mL/min (>60) Glucose Level 159 MG/DL (74-106) H Calcium Level 8.5 MG/DL (8.5-10.1) Height (Feet): 5 Height (Inches): 11.00 Weight (Pounds): 200 General Appearance: WD/WN, no apparent distress, alert Cardiovascular: normal rate Respiratory/Chest: normal breath sounds, no respiratory distress Abdominal Exam: normal bowel sounds, non tender, soft Extremities: normal range of motion, non-tender Cristina Galloway NP Dec 15, 2018 11:15
--- NOTE | 2018-12-15 12:13 | Anethesia Preoperative Eval ---
Anesthesia Pre-op PMH/ROS General Date of Evaluation: Dec 15, 2018 Time of Evaluation: 12:09 Anesthesiologist: cliff ASA Score: ASA 4 Mallampati Score Class I : Soft palate, uvula, fauces, pillars visible Class II: Soft palate, uvula, fauces visible Class III: Soft palate, base of uvula visible Class IV: Only hard plate visible Mallampati Classification: Class II Surgeon: monica Diagnosis: abdominal distention, diarrhea Surgical Procedure: colonoscopy Anesthesia History: none Family History: no anesthesia problems Allergies: Coded Allergies: No Known Allergies (Unverified , 04/22/17) Medications: see eMAR Patient NPO?: Yes Past Medical History Cardiovascular: Reports: HTN, other - pacemaker, first and second degree av blocks, Gastrointestinal/Genitourinary: Reports: other - gastroparesis, uti Endocrine: Reports: DM, hypothyroidism Hematology/Immune: Reports: anemia Anesthesia Pre-op Phys. Exam Physician Exam Last Vital Signs Date Time Temp Pulse Resp B/P (MAP) Pulse Ox O2 Delivery O2 Flow Rate FiO2 12/15/18 11:30 146/79 12/15/18 09:00 Room Air 12/15/18 08:00 63 12/15/18 08:00 97.7 20 100 Constitutional: NAD Neurologic: CN 2-12 intact Cardiovascular: RRR, other - paced Respiratory: CTA Gastrointestinal: other - distended Airway Exam Mallampati Score: Class II MO: limited Neck: decreased rom to lateral rotation TMD: 2fb Teeth: missing Anesthesia Pre-op A/P Labs Hematology Test 12/15/18 07:52 White Blood Count 8.8 K/UL (4.8-10.8) Red Blood Count 4.53 M/UL (4.70-6.10) L Hemoglobin 14.0 G/DL (14.2-18.0) L Hematocrit 41.9 % (42.0-52.0) L Mean Corpuscular Volume 93 FL (80-99) Mean Corpuscular Hemoglobin 31.0 PG (27.0-31.0) Mean Corpuscular Hemoglobin Concent 33.5 G/DL (32.0-36.0) Red Cell Distribution Width 12.2 % (11.6-14.8) Platelet Count 215 K/UL (150-450) Mean Platelet Volume 6.5 FL (6.5-10.1) Neutrophils (%) (Auto) % (45.0-75.0) Lymphocytes (%) (Auto) % (20.0-45.0) Monocytes (%) (Auto) % (1.0-10.0) Eosinophils (%) (Auto) % (0.0-3.0) Basophils (%) (Auto) % (0.0-2.0) Differential Total Cells Counted 100 Neutrophils % (Manual) 86 % (45-75) H Lymphocytes % (Manual) 11 % (20-45) L Monocytes % (Manual) 3 % (1-10) Eosinophils % (Manual) 0 % (0-3) Basophils % (Manual) 0 % (0-2) Band Neutrophils 0 % (0-8) Platelet Estimate Adequate Platelet Morphology Normal Red Blood Cell Morphology Normal Coagulation Test 12/15/18 07:52 Prothrombin Time 12.0 SEC (9.30-11.50) H Prothromb Time International Ratio 1.1 (0.9-1.1) Activated Partial Thromboplast Time 27 SEC (23-33) Chemistry Test 12/15/18 07:52 Sodium Level 147 MMOL/L (136-145) H Potassium Level 2.1 MMOL/L (3.5-5.1) *L Chloride Level 111 MMOL/L (98-107) H Carbon Dioxide Level 21 MMOL/L (21-32) Anion Gap 15 mmol/L (5-15) Blood Urea Nitrogen 7 mg/dL (7-18) Creatinine 1.1 MG/DL (0.55-1.30) Estimat Glomerular Filtration Rate mL/min (>60) Glucose Level 159 MG/DL (74-106) H Calcium Level 8.5 MG/DL (8.5-10.1) Risk Assessment & Plan Assessment: asa4 severe hypokalemia 2.1 patient cleared by distribution technician according to dr anderson Plan: mac Status Change Before Surgery: No Pre-Antibiotics Drug: Taina Denny MD Dec 15, 2018 12:13
[2018-12-15] MEDS ORDERED: Midazolam 2mg/2ml Inj IVP PRN (12:15)
[2018-12-15] MEDS ORDERED: Atropine Inj 1mg/10ml Syr IV PRN (12:15)
[2018-12-15] MEDS ORDERED: DiphenhydrAMINE 50mg/ml Inj IVP PRN (12:15)
[2018-12-15] MEDS ORDERED: fentaNYL 100 mcg/2 mL IV PRN (12:15)
--- NOTE | 2018-12-15 12:21 | Pre-Procedure Note/Attestation ---
Pre-Procedure Note/Attestation Complete Prior to Procedure Planned Procedure: not applicable Procedure Narrative: colonoscopy Indications for Procedure Pre-Operative Diagnosis: diarrhea Attestation I attest that I discussed the nature of the procedure; its benefits; risks and complications; and alternatives (and the risks and benefits of such alternatives ), prior to the procedure, with the patient (or the patient's legal area representative). I attest that, if there was a reasonable possibility of needing a blood transfusion, the patient (or the patient's legal area representative) was given the [facility] standardized written summary, pursuant to the Ismael Carleen Blood Safety Act ([place] Health and Safety Code # 1645, as amended). I attest that I re-evaluated the patient just prior to the surgery and that there has been no change in the patient's H&P, except as documented below: Tavares Ortiz MD Dec 15, 2018 12:21
--- NOTE | 2018-12-15 12:34 | NUR ---
NURSE NOTES: Patient out of the floor for colonoscopy
[2018-12-15] MEDS ORDERED: NS 500ML IVPB ONE (12:40)
--- NOTE | 2018-12-15 13:34 | Endoscopy Procedure Note ---
Endoscopy Procedure Note General Indication for Procedure: abd distention Procedures Performed: colonoscopy Operative Findings/Diagnosis: ileus Specimen: yes Pt Tolerated Procedure Well: Yes Estimated Blood Loss: none Anesthesia Anesthesiologist: cliff Anesthesia: MAC Inserted Devices Implant(s) used?: No GI Core Measures 50 yrs or older w/o bx or poly: Not Applicable 10yrs. F/U not recommended: Not Applicable Tavares Ortiz MD Dec 15, 2018 13:34
--- NOTE | 2018-12-15 13:49 | NUR ---
NURSE NOTES: Dr. Mynor Ortiz spoke directly with Dr. Vanessa Marshall via telephone immediately following exam and informed him of the gross fluid removal of approximately 4,250cc from the colon via colonoscope suction. RN in exam room inquired if any new orders to be executed immediately at that time. No new orders received at that time. Patient remained hemodynamically stable throughout and immediately following exam. Will continue to monitor.
--- NOTE | 2018-12-15 13:54 | Nephrology Progress Note ---
Assessment/Plan Problem List: (1) Hypokalemia Assessment: persistant (2) UTI (urinary tract infection) (3) HTN (hypertension) (4) Ileus Assessment Low K Volvolus Anemia hypothyroid HTN BPH Dementia DM Plan Per GI K supplement IV and PO again today PO Aldactone increase dose Hydralazine for BP add Reglan change Rocephin to Cefepime, Pseudomonas UTI TSH wnl clear liquids IV hydrate discussed with RN Subjective ROS Limited/Unobtainable: No Constitutional: Reports: malaise, weakness Objective Objective Last 24 Hour Vital Signs Date Time Temp Pulse Resp B/P (MAP) Pulse Ox O2 Delivery O2 Flow Rate FiO2 12/15/18 12:00 97.6 60 20 150/82 (104) 98 12/15/18 11:30 146/79 12/15/18 09:00 Room Air 12/15/18 08:00 63 12/15/18 08:00 97.7 63 20 146/79 (101) 100 12/15/18 04:58 173/94 (120) 12/15/18 04:57 201/100 12/15/18 04:00 98.0 67 20 201/100 (133) 99 12/15/18 04:00 62 12/15/18 00:00 69 12/15/18 00:00 99.5 73 20 167/93 (117) 99 12/14/18 22:41 68 143/97 (112) 12/14/18 21:19 99.3 12/14/18 21:00 Room Air 12/14/18 20:50 181/96 12/14/18 20:40 100.7 12/14/18 20:00 101.5 64 20 181/96 (124) 100 12/14/18 17:24 159/87 12/14/18 16:00 98.2 60 20 150/84 (106) 99 12/14/18 16:00 66 Intake and Output 12/14/18 12/15/18 19:00 07:00 Intake Total 140 ml Output Total 600 ml 200 ml Balance -460 ml -200 ml Intake Oral 140 ml Output Urine Total 600 ml Emesis 200 ml # Bowel Movements 1 1 Laboratory Tests 12/15/18 07:52: White Blood Count 8.8, Red Blood Count 4.53L, Hemoglobin 14.0L, Hematocrit 41.9L , Mean Corpuscular Volume 93, Mean Corpuscular Hemoglobin 31.0, Mean Corpuscular Hemoglobin Concent 33.5, Red Cell Distribution Width 12.2, Platelet Count 215, Mean Platelet Volume 6.5, Neutrophils (%) (Auto) , Lymphocytes (%) ( Auto) , Monocytes (%) (Auto) , Eosinophils (%) (Auto) , Basophils (%) (Auto) , Differential Total Cells Counted 100, Neutrophils % (Manual) 86H, Lymphocytes % (Manual) 11L, Monocytes % (Manual) 3, Eosinophils % (Manual) 0, Basophils % ( Manual) 0, Band Neutrophils 0, Platelet Estimate Adequate, Platelet Morphology Normal, Red Blood Cell Morphology Normal, Prothrombin Time 12.0H, Prothromb Time International Ratio 1.1, Activated Partial Thromboplast Time 27, Sodium Level 147H, Potassium Level 2.1*L, Chloride Level 111H, Carbon Dioxide Level 21 , Anion Gap 15, Blood Urea Nitrogen 7, Creatinine 1.1, Estimat Glomerular Filtration Rate , Glucose Level 159H, Calcium Level 8.5 Height (Feet): 5 Height (Inches): 11.00 Weight (Pounds): 200 Cardiovascular: tachycardia Respiratory/Chest: decreased breath sounds Abdomen: distended Herve Marshall MD Dec 15, 2018 13:54
--- NOTE | 2018-12-15 14:17 | Immediate Post-Op Evaluation ---
Immediate Post-Op Evalulation Immediate Post-Op Evalulation Procedure: colonoscopy w/bx Date of Evaluation: Dec 15, 2018 Time of Evaluation: 13:55 IV Fluids: 300ml 0.9ns Blood Products: none Estimated Blood Loss: negligible Blood Pressure Systolic: 127 Blood Pressure Diastolic: 57 Pulse Rate: 60 Respiratory Rate: 18 O2 Sat by Pulse Oximetry: 100 Temperature (Fahrenheit): 97.6 Pain Score (1-10): 0 Nausea: No Vomiting: No Complications none Patient Status: awake, reacts, patent Hydration Status: adequate Drug: Taina Denny MD Dec 15, 2018 14:17
--- NOTE | 2018-12-15 14:19 | 48 Hour Post Anesthesia Eval ---
Post Anesthesia Evaluation Procedure: colonoscopy w/bx Date of Evaluation: Dec 15, 2018 Time of Evaluation: 13:57 Blood Pressure Systolic: 130 0: 58 Pulse Rate: 60 Respiratory Rate: 18 Temperature (Fahrenheit): 97.6 O2 Sat by Pulse Oximetry: 100 Airway: patent Nausea: No Vomiting: No Pain Intensity: 0 Hydration Status: adequate Cardiopulmonary Status: stable Mental Status/LOC: patient returned to baseline Post-Anesthesia Complications: none Follow-up care needed: N/A Tiana Sears MD Dec 15, 2018 14:19
[2018-12-15 14:39] LABS: ANION GAP 12 mmol/L (5-15); BLOOD UREA NITROGEN 7 mg/dL (7-18); CALCIUM 8.2 MG/DL (8.5-10.1); CARBON DIOXIDE 25 MMOL/L (21-32); CHLORIDE 114 MMOL/L (98-107); CREATININE 1.2 MG/DL (0.55-1.30); SODIUM 150 MMOL/L (136-145)
[2018-12-15 14:40] LABS: POTASSIUM 2.3 MMOL/L (3.5-5.1)
[2018-12-15] MEDS: SODIUM CHLORIDE IV SCH ×2 (14:40→19:00)
[2018-12-15] MEDS: POTASSIUM CHLORIDE IV SCH ×2 (14:40→19:00)
--- NOTE | 2018-12-15 14:45 | NUR ---
NURSE NOTES: Patient is back on the unit, denies any pain, a & o x4. No distress or discomfort noted. It was endorsed that 4150cc out during colonoscopy suction, 100cc out from rectal tube. Rectal tube dc'd from the GI lab. Lab drawn and potassium is now 2.3, aware. Potassium 60 meq is infusing now. Will continue to monitor.
--- NOTE | 2018-12-15 15:05 | Surgery Progress Note ---
Surgery Progress Note Subjective Additional Comments for colonoscopy today. labs noted. continued severe hypo k despite massive replacement. Objective Last 24 Hour Vital Signs Date Time Temp Pulse Resp B/P (MAP) Pulse Ox O2 Delivery O2 Flow Rate FiO2 12/15/18 14:19 60 18 100 12/15/18 14:17 60 18 100 12/15/18 14:00 60 18 159/65 100 Room Air 12/15/18 13:53 60 18 150/61 100 Nasal Cannula 3 12/15/18 13:48 60 18 130/58 100 Nasal Cannula 3 12/15/18 13:43 97.6 60 18 127/57 100 Nasal Cannula 3 12/15/18 12:00 97.6 60 20 150/82 (104) 98 12/15/18 11:30 146/79 12/15/18 09:00 Room Air 12/15/18 08:00 63 12/15/18 08:00 97.7 63 20 146/79 (101) 100 12/15/18 04:58 173/94 (120) 12/15/18 04:57 201/100 12/15/18 04:00 98.0 67 20 201/100 (133) 99 12/15/18 04:00 62 12/15/18 00:00 69 12/15/18 00:00 99.5 73 20 167/93 (117) 99 12/14/18 22:41 68 143/97 (112) 12/14/18 21:19 99.3 12/14/18 21:00 Room Air 12/14/18 20:50 181/96 12/14/18 20:40 100.7 12/14/18 20:00 101.5 64 20 181/96 (124) 100 12/14/18 17:24 159/87 12/14/18 16:00 98.2 60 20 150/84 (106) 99 12/14/18 16:00 66 I&O Intake and Output 12/14/18 12/15/18 19:00 07:00 Intake Total 140 ml Output Total 600 ml 200 ml Balance -460 ml -200 ml Intake Oral 140 ml Output Urine Total 600 ml Emesis 200 ml # Bowel Movements 1 1 Cardiovascular: RSR Respiratory: clear Abdomen: soft, distended, non-tender, decreased bowel sounds Extremities: no cyanosis Laboratory Tests Test 12/15/18 07:52 12/15/18 14:00 White Blood Count 8.8 K/UL (4.8-10.8) Red Blood Count 4.53 M/UL (4.70-6.10) L Hemoglobin 14.0 G/DL (14.2-18.0) L Hematocrit 41.9 % (42.0-52.0) L Mean Corpuscular Volume 93 FL (80-99) Mean Corpuscular Hemoglobin 31.0 PG (27.0-31.0) Mean Corpuscular Hemoglobin Concent 33.5 G/DL (32.0-36.0) Red Cell Distribution Width 12.2 % (11.6-14.8) Platelet Count 215 K/UL (150-450) Mean Platelet Volume 6.5 FL (6.5-10.1) Neutrophils (%) (Auto) % (45.0-75.0) Lymphocytes (%) (Auto) % (20.0-45.0) Monocytes (%) (Auto) % (1.0-10.0) Eosinophils (%) (Auto) % (0.0-3.0) Basophils (%) (Auto) % (0.0-2.0) Differential Total Cells Counted 100 Neutrophils % (Manual) 86 % (45-75) H Lymphocytes % (Manual) 11 % (20-45) L Monocytes % (Manual) 3 % (1-10) Eosinophils % (Manual) 0 % (0-3) Basophils % (Manual) 0 % (0-2) Band Neutrophils 0 % (0-8) Platelet Estimate Adequate Platelet Morphology Normal Red Blood Cell Morphology Normal Prothrombin Time 12.0 SEC (9.30-11.50) H Prothromb Time International Ratio 1.1 (0.9-1.1) Activated Partial Thromboplast Time 27 SEC (23-33) Sodium Level 147 MMOL/L (136-145) H 150 MMOL/L (136-145) H Potassium Level 2.1 MMOL/L (3.5-5.1) *L 2.3 MMOL/L (3.5-5.1) *L Chloride Level 111 MMOL/L (98-107) H 114 MMOL/L (98-107) H Carbon Dioxide Level 21 MMOL/L (21-32) 25 MMOL/L (21-32) Anion Gap 15 mmol/L (5-15) 12 mmol/L (5-15) Blood Urea Nitrogen 7 mg/dL (7-18) 7 mg/dL (7-18) Creatinine 1.1 MG/DL (0.55-1.30) 1.2 MG/DL (0.55-1.30) Estimat Glomerular Filtration Rate mL/min (>60) mL/min (>60) Glucose Level 159 MG/DL (74-106) H 127 MG/DL (74-106) H Calcium Level 8.5 MG/DL (8.5-10.1) 8.2 MG/DL (8.5-10.1) L Plan Problems: (1) Ileus (2) Sigmoid volvulus Assessment & Plan: 78 year old male with concerns of sigmoid volvulus. afebrile, HD stable, abnormal electrolytes, distended, tympanic, no abd pain. states he is having flatus now. pending final results of barium enema but from report likely has colonic ileus does not seem to clinically have sigmoid volvulus and CT reviewed and more consistent with ileus. Remains very distended, tympanic, non tender. afebrile, HD stable, no leukocytosis hypo K npo iv fluids replace electrolytes GI eval for colonoscopy today trend labs will follow with serial exams Chava Smith Dec 15, 2018 15:05
[2018-12-15] MEDS: D5NS 1,000 ML IV SCH (15:17)
--- NOTE | 2018-12-15 17:16 | NUR ---
CASE MANAGEMENT: REVIEW 12/15/2018 SI: HYPOKALEMIA. SIGMOID VOLVULUS T 97.7 HR 60 RR 20 B/P 154/69 SATS 99% ON RA NA 150 K 2.3 CL 114 GLU 127 CA 8.2 PT 12 IS: IVF @ 50 mL/HR KCL IV X1 ALDACTONE PO Q8H CEFEPIME IV Q12H HYDRALAZINE PO Q6H K DUR PO QID REGLAN PO TID : TO TELEMETRY PLAN OF CARE: RONALDO WAYNE CLD
--- NOTE | 2018-12-15 17:24 | General Progress Note ---
Assessment/Plan Problem List: (1) Hypokalemia ICD Codes: E87.6 - Hypokalemia SNOMED: 49883041 (2) Ileus ICD Codes: K56.7 - Ileus, unspecified SNOMED: 963761569 (3) Gastroparesis ICD Codes: K31.84 - Gastroparesis SNOMED: 617891531 (4) Sigmoid volvulus ICD Codes: K56.2 - Volvulus SNOMED: 963903017 (5) HTN (hypertension) ICD Codes: I10 - Essential (primary) hypertension SNOMED: 90735613 Status: unchanged Assessment/Plan severe hypokalemia is persistently low still distended abdomin sigmoid volvulus pt has chronic history of persistent hypokalemia no nausea elevated bp is improved worsening hypernatremia Subjective ROS Limited/Unobtainable: Yes Allergies: Coded Allergies: No Known Allergies (Unverified , 04/22/17) Objective Last 24 Hour Vital Signs Date Time Temp Pulse Resp B/P (MAP) Pulse Ox O2 Delivery O2 Flow Rate FiO2 12/15/18 16:00 97.7 60 20 154/69 (97) 99 12/15/18 16:00 60 12/15/18 14:19 60 18 100 12/15/18 14:17 60 18 100 12/15/18 14:00 60 18 159/65 100 Room Air 12/15/18 13:53 60 18 150/61 100 Nasal Cannula 3 12/15/18 13:48 60 18 130/58 100 Nasal Cannula 3 12/15/18 13:43 97.6 60 18 127/57 100 Nasal Cannula 3 12/15/18 12:00 60 12/15/18 12:00 97.6 60 20 150/82 (104) 98 12/15/18 11:30 146/79 12/15/18 09:00 Room Air 12/15/18 08:00 63 12/15/18 08:00 97.7 63 20 146/79 (101) 100 12/15/18 04:58 173/94 (120) 12/15/18 04:57 201/100 12/15/18 04:00 98.0 67 20 201/100 (133) 99 12/15/18 04:00 62 12/15/18 00:00 69 12/15/18 00:00 99.5 73 20 167/93 (117) 99 12/14/18 22:41 68 143/97 (112) 12/14/18 21:19 99.3 12/14/18 21:00 Room Air 12/14/18 20:50 181/96 12/14/18 20:40 100.7 12/14/18 20:00 101.5 64 20 181/96 (124) 100 12/14/18 17:24 159/87 Intake and Output 12/14/18 12/15/18 19:00 07:00 Intake Total 140 ml Output Total 600 ml 200 ml Balance -460 ml -200 ml Intake Oral 140 ml Output Urine Total 600 ml Emesis 200 ml # Bowel Movements 1 1 Laboratory Tests 12/15/18 07:52: White Blood Count 8.8, Red Blood Count 4.53L, Hemoglobin 14.0L, Hematocrit 41.9L , Mean Corpuscular Volume 93, Mean Corpuscular Hemoglobin 31.0, Mean Corpuscular Hemoglobin Concent 33.5, Red Cell Distribution Width 12.2, Platelet Count 215, Mean Platelet Volume 6.5, Neutrophils (%) (Auto) , Lymphocytes (%) ( Auto) , Monocytes (%) (Auto) , Eosinophils (%) (Auto) , Basophils (%) (Auto) , Differential Total Cells Counted 100, Neutrophils % (Manual) 86H, Lymphocytes % (Manual) 11L, Monocytes % (Manual) 3, Eosinophils % (Manual) 0, Basophils % ( Manual) 0, Band Neutrophils 0, Platelet Estimate Adequate, Platelet Morphology Normal, Red Blood Cell Morphology Normal, Prothrombin Time 12.0H, Prothromb Time International Ratio 1.1, Activated Partial Thromboplast Time 27, Sodium Level 147H, Potassium Level 2.1*L, Chloride Level 111H, Carbon Dioxide Level 21 , Anion Gap 15, Blood Urea Nitrogen 7, Creatinine 1.1, Estimat Glomerular Filtration Rate , Glucose Level 159H, Calcium Level 8.5 12/15/18 14:00: Sodium Level 150H, Potassium Level 2.3*L, Chloride Level 114H, Carbon Dioxide Level 25, Anion Gap 12, Blood Urea Nitrogen 7, Creatinine 1.2, Estimat Glomerular Filtration Rate , Glucose Level 127H, Calcium Level 8.2L Height (Feet): 5 Height (Inches): 11.00 Weight (Pounds): 200 Abdomen: distended Hadadz,Ali MD Dec 15, 2018 17:24
--- NOTE | 2018-12-15 19:32 | NUR ---
HAND-OFF: Report given to ANA PAULA Rodriguez.
--- NOTE | 2018-12-15 19:53 | NUR ---
NURSE NOTES: Report received from ANA PAULA Andujar. Pt asleep but aroused to touch. Bed in lowest position. Stomach visibly smaller. Call light within reach. Will continue to monitor.
[2018-12-16] VITALS: BP 109/52
--- NOTE | 2018-12-16 01:15 | Operative Note - Dictated ---
DATE OF OPERATION: 12/11/2018 PROCEDURE: Colonoscopy with biopsy. ANESTHESIA: Per Dr. Choi. INSTRUMENT: Olympus adult flexible colonoscope. INDICATIONS: Diarrhea, colonic distention, possible volvulus. The procedure, risks, benefits, and possible consequences, including hemorrhage, aspiration, perforation and infection, and alternative treatments, were explained to the patient/legal guardian by Dr. Tavares Ortiz and the patient/legal guardian understood and accepted these risks. DESCRIPTION OF PROCEDURE: After informed consent was obtained and the patient was adequately sedated, first rectal exam was performed, which was normal. Then, the scope was advanced from rectum into the area seems to be 30 cm from anal verge sigmoid area, there was a bowel edema, swelling in this area. We were able to pass the scope through, and as soon as we passed this area, there was a severe colonic distention and it seems that may be colon was backing up behind this swelling area or edematous area. We advanced the scope as far as we could. We went all the way I would say may be about to the hepatic flexure area. The patient had severe colonic distention throughout. Almost 3600 mL of the fluid was aspirated from the colon. At this point, the blood pressure started dropping and anesthesia did not feel comfortable to continue, so we decided to slowly retrieve the scope. As we were coming back, we saw another area of inflammation in the sigmoid, which we biopsied. At the end of the exam, the patient's abdomen was significantly compressed and the procedure was terminated. SUMMARY OF FINDINGS: 1. Incomplete colonoscopy examination, see above for details. 2. An area of edema at about 30 cm from the anal verge causing a kind of colonic outlet obstruction, status post biopsy of this area. Also status post biopsy of the sigmoid colon with some inflammation. 3. Severe colonic dilation and ileus, status post decompression, almost 3600 mL of fluid was aspirated in this procedure. RECOMMENDATIONS: The patient to be resumed on his diet. His potassium to be closely monitored and replaced by Nephrology. Intravenous hydration given this today. Follow up biopsy results. The patient might benefit from repeat colonoscopy when more stable to get to the end of the colon to rule out villous adenomatous as a cause of diarrhea. I want to thank Dr. Jose Francisco Chand for this kind referral. Tavares Flex Ortiz DR: KOSTA JOB#: [id number] CC: Jose Francisco Chand M.D.; Fax#: [phone]
[2018-12-16 04:00] VITALS: BP 121/63
[2018-12-16] MEDS: Spironolactone 25mg tab ORAL SCH ×3 (06:57→21:14)
[2018-12-16] MEDS: HydrALAZINE 25mg tab ORAL SCH ×4 (06:57→20:01)
[2018-12-16 07:14] LABS: BASOPHILS % (AUTO) 0.4 % (0.0-2.0); EOSINOPHILS % (AUTO) 0.3 % (0.0-3.0); HEMATOCRIT 38.5 % (42.0-52.0); HEMOGLOBIN 12.8 G/DL (14.2-18.0); LYMPHOCYTES % (AUTO) 14.8 % (20.0-45.0); MEAN CORPUSCULAR VOLUME 93 FL (80-99); MONOCYTES % (AUTO) 6.4 % (1.0-10.0); NEUTROPHILS % (AUTO) 78.1 % (45.0-75.0); PLATELET COUNT 193 K/UL (150-450); RED BLOOD COUNT 4.12 M/UL (4.70-6.10); RED CELL DISTRIBUTION WIDTH 12.3 % (11.6-14.8); WHITE BLOOD COUNT 8.3 K/UL (4.8-10.8)
[2018-12-16 07:20] LABS: ALANINE AMINOTRANSFERASE 22 U/L (12-78); ALBUMIN 2.6 G/DL (3.4-5.0); ALBUMIN/GLOBULIN RATIO 0.7 (1.0-2.7); ALKALINE PHOSPHATASE 69 U/L (46-116); ANION GAP 10 mmol/L (5-15); ASPARTATE AMINO TRANSFERASE 25 U/L (15-37); BILIRUBIN,TOTAL 0.5 MG/DL (0.2-1.0); BLOOD UREA NITROGEN 8 mg/dL (7-18); CARBON DIOXIDE 25 MMOL/L (21-32); CHLORIDE 117 MMOL/L (98-107); CREATININE 1.1 MG/DL (0.55-1.30); PHOSPHORUS 1.5 MG/DL (2.5-4.9); SODIUM 152 MMOL/L (136-145)
--- NOTE | 2018-12-16 07:20 | NUR ---
HAND-OFF: Report given to ANA PAULA Andujar. Pt stable.
--- NOTE | 2018-12-16 07:26 | NUR ---
NURSE NOTES: Received report from ANA PAULA Rodriguez. Patient in bed sleeping, no active s/s cardiac, respiratory distress noticed at this time, no s/s of pain noted. Patient on RA, AOx4. IV on LFA 22G, asymptomatic, patent, intact. Bed in lowest position, side rails upx3, call light within reach. Will continue with the plan of care.
[2018-12-16 07:31] LABS: POTASSIUM 2.3 MMOL/L (3.5-5.1)
--- NOTE | 2018-12-16 07:31 | NUR ---
NURSE NOTES: Dyn from lab called, potassium is 2.3. Will notify MD and continue to monitor.
[2018-12-16 08:00] VITALS: BP 136/72
[2018-12-16] MEDS ORDERED: SODIUM CHLORIDE IV SCH (09:00)
[2018-12-16] MEDS ORDERED: POTASSIUM CHLORIDE IV SCH (09:00)
[2018-12-16] MEDS ORDERED: Potassium Phosphate 30 MM in NS 275 ML IV ONE (09:00)
--- NOTE | 2018-12-16 11:01 | GI Progress Note ---
Assessment/Plan Problems: (1) Sigmoid volvulus ICD Codes: K56.2 - Volvulus SNOMED: 312244319 (2) Gastroparesis ICD Codes: K31.84 - Gastroparesis SNOMED: 689294268 (3) Ileus ICD Codes: K56.7 - Ileus, unspecified SNOMED: 606927690 (4) Anemia ICD Codes: D64.9 - Anemia, unspecified SNOMED: 839902374 (5) Diabetes mellitus ICD Codes: E11.9 - Type 2 diabetes mellitus without complications SNOMED: 28048927 Status: progressing Status Narrative Discussed with Dr. Ortiz Assessment/Plan Assessment - chronic abd distention - anemia - DM - Hypothyroid - severe hypokalemia - hx of carcinomas SUMMARY OF FINDINGS: 1. Incomplete colonoscopy examination, see above for details. 2. An area of edema at about 30 cm from the anal verge causing a kind of colonic outlet obstruction, status post biopsy of this area. Also status post biopsy of the sigmoid colon with some inflammation. 3. Severe colonic dilation and ileus, status post decompression, almost 3600 mL of fluid was aspirated in this procedure. RECOMMENDATIONS: advance diet - Patient must be turned every 2 hours - rectal tube for colonic decompression - roll on (L) lat decub - follow exam - replace K - start octreotide gtt The patient might benefit from repeat colonoscopy when more stable to get to the end of the colon to rule out villous adenomatous as a cause of diarrhea. The patient was seen and examined at bedside and all new and available data was reviewed in the patients chart. I agree with the above findings, impression and plan. (Patient seen earlier today. Signature stamp does not reflect patient encounter time.). - Tavares Ortiz MD Subjective Subjective Abdominal distention improved Objective Last 24 Hour Vital Signs Date Time Temp Pulse Resp B/P (MAP) Pulse Ox O2 Delivery O2 Flow Rate FiO2 12/16/18 09:00 Room Air 12/16/18 08:00 97.5 60 20 136/72 (93) 100 12/16/18 08:00 60 12/16/18 06:57 121/63 12/16/18 04:00 97.2 60 20 121/63 (82) 97 12/16/18 04:00 60 12/16/18 00:00 97.0 60 20 109/52 (71) 99 12/16/18 00:00 60 12/15/18 21:00 Room Air 12/15/18 20:00 60 12/15/18 20:00 98.5 64 18 127/59 (81) 98 12/15/18 17:35 154/69 12/15/18 16:00 97.7 60 20 154/69 (97) 99 12/15/18 16:00 60 12/15/18 14:19 60 18 100 12/15/18 14:17 60 18 100 12/15/18 14:00 60 18 159/65 100 Room Air 12/15/18 13:53 60 18 150/61 100 Nasal Cannula 3 12/15/18 13:48 60 18 130/58 100 Nasal Cannula 3 12/15/18 13:43 97.6 60 18 127/57 100 Nasal Cannula 3 12/15/18 12:00 60 12/15/18 12:00 97.6 60 20 150/82 (104) 98 12/15/18 11:30 146/79 Intake and Output 12/15/18 12/16/18 19:00 07:00 Intake Total 300 ml Output Total 8500 ml Balance -8200 ml IV Total 300 ml Output Urine Total 0 ml Stool Total 100 ml Other 8400 ml # Voids 3 # Bowel Movements 1 1 Laboratory Tests Test 12/15/18 14:00 12/16/18 05:20 Sodium Level 150 MMOL/L (136-145) H 152 MMOL/L (136-145) H Potassium Level 2.3 MMOL/L (3.5-5.1) *L 2.3 MMOL/L (3.5-5.1) *L Chloride Level 114 MMOL/L (98-107) H 117 MMOL/L (98-107) H Carbon Dioxide Level 25 MMOL/L (21-32) 25 MMOL/L (21-32) Anion Gap 12 mmol/L (5-15) 10 mmol/L (5-15) Blood Urea Nitrogen 7 mg/dL (7-18) 8 mg/dL (7-18) Creatinine 1.2 MG/DL (0.55-1.30) 1.1 MG/DL (0.55-1.30) Estimat Glomerular Filtration Rate mL/min (>60) mL/min (>60) Glucose Level 127 MG/DL (74-106) H 109 MG/DL (74-106) H Calcium Level 8.2 MG/DL (8.5-10.1) L 8.0 MG/DL (8.5-10.1) L White Blood Count 8.3 K/UL (4.8-10.8) Red Blood Count 4.12 M/UL (4.70-6.10) L Hemoglobin 12.8 G/DL (14.2-18.0) L Hematocrit 38.5 % (42.0-52.0) L Mean Corpuscular Volume 93 FL (80-99) Mean Corpuscular Hemoglobin 31.0 PG (27.0-31.0) Mean Corpuscular Hemoglobin Concent 33.2 G/DL (32.0-36.0) Red Cell Distribution Width 12.3 % (11.6-14.8) Platelet Count 193 K/UL (150-450) Mean Platelet Volume 7.0 FL (6.5-10.1) Neutrophils (%) (Auto) 78.1 % (45.0-75.0) H Lymphocytes (%) (Auto) 14.8 % (20.0-45.0) L Monocytes (%) (Auto) 6.4 % (1.0-10.0) Eosinophils (%) (Auto) 0.3 % (0.0-3.0) Basophils (%) (Auto) 0.4 % (0.0-2.0) Phosphorus Level 1.5 MG/DL (2.5-4.9) L Magnesium Level 1.9 MG/DL (1.8-2.4) Total Bilirubin 0.5 MG/DL (0.2-1.0) Aspartate Amino Transf (AST/SGOT) 25 U/L (15-37) Alanine Aminotransferase (ALT/SGPT) 22 U/L (12-78) Alkaline Phosphatase 69 U/L (46-116) Total Protein 6.3 G/DL (6.4-8.2) L Albumin 2.6 G/DL (3.4-5.0) L Globulin 3.7 g/dL Albumin/Globulin Ratio 0.7 (1.0-2.7) L Height (Feet): 5 Height (Inches): 11.00 Weight (Pounds): 181 General Appearance: WD/WN, no apparent distress, alert Cardiovascular: normal rate Respiratory/Chest: normal breath sounds, no respiratory distress Abdominal Exam: normal bowel sounds, non tender, soft, distended - Distended, however soft Extremities: normal range of motion, non-tender Cristina Galloway NP Dec 16, 2018 11:01
[2018-12-16 12:00] VITALS: BP 142/68
[2018-12-16] MEDS: D5NS 1,000 ML IV SCH (12:17)
[2018-12-16] MEDS: Cefepime HCl 1 GM in D5W 55 ML IVPB SCH ×2 (12:17→23:07)
--- NOTE | 2018-12-16 12:38 | NUR ---
RD ASSESSMENT & RECOMMENDATIONS SEE CARE ACTIVITY FOR COMPLETE ASSESSMENT DAILY ESTIMATED NEEDS: Needs based on DM/ 79.5kg abw 25-30 kcals/kg total kcals 1-1.2 g protein/kg 80-96 g total protein 25-30 mL/kg total fluid mLs NUTRITION DIAGNOSIS: *Altered nutrition related lab values R/T clinical condition as evidenced by elev Na(152), critically low K (2.3), low phos (1.5) * Altered GI function R/T sigmoid volvulus as evidenced by + abdominal distention, s/p colonoscopy w/ finding of severe colonic dilation and ileus, status post decompression, almost 3600 mL of fluid was aspirated, on CLD at this time. CURRENT DIET:CLEAR LIQUID PO DIET RECOMMENDATIONS: Advance diet per MD -> low Na, CCHO Med ADDITIONAL RECOMMENDATIONS: * Calibrated bedscale wt for accurate CBW * Monitor lytes daily, replete as needed -> low phos, K critically low * Monitor for diet advancement, PO tolerance and acceptance * A1C for eval of glycemic control - h/o DM Addendum: 12/16/18 at [address] ADDENDUM: Add Ensure CLEAR TID while on CLD.
--- NOTE | 2018-12-16 13:00 | Nephrology Progress Note ---
Assessment/Plan Problem List: (1) Hypokalemia Assessment: persistant (2) UTI (urinary tract infection) (3) HTN (hypertension) (4) Ileus Assessment Low K Volvolus Anemia hypothyroid HTN BPH Dementia DM Plan Per GI ? Trial of Somatostatin ? K supplement IV and PO again today PO Aldactone increase dose Hydralazine for BP add Reglan change Rocephin to Cefepime, Pseudomonas UTI TSH wnl clear liquids IV hydrate discussed with RN Subjective ROS Limited/Unobtainable: No Constitutional: Reports: malaise, weakness Objective Objective Last 24 Hour Vital Signs Date Time Temp Pulse Resp B/P (MAP) Pulse Ox O2 Delivery O2 Flow Rate FiO2 12/16/18 12:18 142/68 12/16/18 09:00 Room Air 12/16/18 08:00 97.5 60 20 136/72 (93) 100 12/16/18 08:00 60 12/16/18 06:57 121/63 12/16/18 04:00 97.2 60 20 121/63 (82) 97 12/16/18 04:00 60 12/16/18 00:00 97.0 60 20 109/52 (71) 99 12/16/18 00:00 60 12/15/18 21:00 Room Air 12/15/18 20:00 60 12/15/18 20:00 98.5 64 18 127/59 (81) 98 12/15/18 17:35 154/69 12/15/18 16:00 97.7 60 20 154/69 (97) 99 12/15/18 16:00 60 12/15/18 14:19 60 18 100 12/15/18 14:17 60 18 100 12/15/18 14:00 60 18 159/65 100 Room Air 12/15/18 13:53 60 18 150/61 100 Nasal Cannula 3 12/15/18 13:48 60 18 130/58 100 Nasal Cannula 3 12/15/18 13:43 97.6 60 18 127/57 100 Nasal Cannula 3 Intake and Output 12/15/18 12/16/18 19:00 07:00 Intake Total 300 ml Output Total 8500 ml Balance -8200 ml IV Total 300 ml Output Urine Total 0 ml Stool Total 100 ml Other 8400 ml # Voids 3 # Bowel Movements 1 1 Laboratory Tests 12/15/18 14:00: Sodium Level 150H, Potassium Level 2.3*L, Chloride Level 114H, Carbon Dioxide Level 25, Anion Gap 12, Blood Urea Nitrogen 7, Creatinine 1.2, Estimat Glomerular Filtration Rate , Glucose Level 127H, Calcium Level 8.2L 12/16/18 05:20: Sodium Level 152H, Potassium Level 2.3*L, Chloride Level 117H, Carbon Dioxide Level 25, Anion Gap 10, Blood Urea Nitrogen 8, Creatinine 1.1, Estimat Glomerular Filtration Rate , Glucose Level 109H, Calcium Level 8.0L, White Blood Count 8.3, Red Blood Count 4.12L, Hemoglobin 12.8L, Hematocrit 38.5L, Mean Corpuscular Volume 93, Mean Corpuscular Hemoglobin 31.0, Mean Corpuscular Hemoglobin Concent 33.2, Red Cell Distribution Width 12.3, Platelet Count 193, Mean Platelet Volume 7.0, Neutrophils (%) (Auto) 78.1H, Lymphocytes (%) (Auto) 14.8L, Monocytes (%) (Auto) 6.4, Eosinophils (%) (Auto) 0.3, Basophils (%) (Auto ) 0.4, Phosphorus Level 1.5L, Magnesium Level 1.9, Total Bilirubin 0.5, Aspartate Amino Transf (AST/SGOT) 25, Alanine Aminotransferase (ALT/SGPT) 22, Alkaline Phosphatase 69, Total Protein 6.3L, Albumin 2.6L, Globulin 3.7, Albumin /Globulin Ratio 0.7L Height (Feet): 5 Height (Inches): 11.00 Weight (Pounds): 181 General Appearance: no apparent distress Objective no change Herve Marshall MD Dec 16, 2018 13:00
--- NOTE | 2018-12-16 13:18 | NUR ---
CASE MANAGEMENT:REVIEW 12/16/18 SI: SEVERE COLONIC DILATION AND ILEUS S/P COLONOSCOPY 97.5 60 20 136/72 100% ON RA NA+152 K-2.3 IS: IV KCL Q4HRS K-DUR PO QID IV CEFEPIME Q12 ALDACTONE PO Q8HR HYDRALAZINE PO Q6HRS REGLAN PO TID IVF@50/HR : TELEMETRY STATUS DCP: PATIENT IS FROM [facility]
--- NOTE | 2018-12-16 13:34 | Diagnostic Imaging Report ---
Indication: Abdominal pain Comparison: None Single view of the abdomen obtained Findings: There is severe dilatation of the sigmoid colon again demonstrated. Small amount of stool noted in the cecum which is noted lateral to the sigmoid colon. Similar findings noted previously on plain film and CT. IMPRESSION: No change radiographically. Dilated sigmoid colon again demonstrated. Volvulus not excluded
--- NOTE | 2018-12-16 13:35 | NUR ---
RADIOLOGY DEPT., ABDOMEN X-RAY COMPLETED BY TECH: FREDDIE BRAVO.KACIE
[2018-12-16] MEDS ORDERED: Potassium Chloride 40 MEQ in Sodium Chloride 550 ML IV SCH (15:00)
[2018-12-16 16:00] VITALS: BP 151/77
[2018-12-16] MEDS: Octreotide Acetate 500 MCG in Sodium Chloride 499 ML IV SCH (17:09)
[2018-12-16 20:00] VITALS: BP 171/77
--- NOTE | 2018-12-16 20:04 | NUR ---
HAND-OFF: Report given to ANA PAULA Miller.
--- NOTE | 2018-12-16 20:05 | NUR ---
NURSE NOTES: Report received from ANA PAULA Andujar. Observed pt lying on the bed. A/O x3-4. Denies any pain at this time. AV paced with phototypesetting equipment monitor. On RA with no signs of SOB. Condom catheter intact and draining well. IV on L FA 22G, intact and patent. Bed in the lowest position. Side rails up x2. Will continue to monitor.
--- NOTE | 2018-12-16 21:37 | Surgery Progress Note ---
Surgery Progress Note Subjective Additional Comments colonoscopy results noted. exam with less distention. kub with still significantly dilated bowel Objective Last 24 Hour Vital Signs Date Time Temp Pulse Resp B/P (MAP) Pulse Ox O2 Delivery O2 Flow Rate FiO2 12/16/18 21:14 171/77 12/16/18 20:01 151/77 12/16/18 16:00 60 12/16/18 16:00 98.2 60 21 151/77 (101) 100 12/16/18 12:18 142/68 12/16/18 12:00 60 12/16/18 12:00 97.7 60 20 142/68 (92) 100 12/16/18 09:00 Room Air 12/16/18 08:00 97.5 60 20 136/72 (93) 100 12/16/18 08:00 60 12/16/18 06:57 121/63 12/16/18 04:00 97.2 60 20 121/63 (82) 97 12/16/18 04:00 60 12/16/18 00:00 97.0 60 20 109/52 (71) 99 12/16/18 00:00 60 I&O Intake and Output 12/15/18 12/16/18 19:00 07:00 Intake Total 300 ml Output Total 8500 ml Balance -8200 ml IV Total 300 ml Output Urine Total 0 ml Stool Total 100 ml Other 8400 ml # Voids 3 # Bowel Movements 1 1 Cardiovascular: RSR Respiratory: clear Abdomen: soft, distended, non-tender, decreased bowel sounds Extremities: no tenderness, no cyanosis Laboratory Tests Test 12/16/18 05:20 White Blood Count 8.3 K/UL (4.8-10.8) Red Blood Count 4.12 M/UL (4.70-6.10) L Hemoglobin 12.8 G/DL (14.2-18.0) L Hematocrit 38.5 % (42.0-52.0) L Mean Corpuscular Volume 93 FL (80-99) Mean Corpuscular Hemoglobin 31.0 PG (27.0-31.0) Mean Corpuscular Hemoglobin Concent 33.2 G/DL (32.0-36.0) Red Cell Distribution Width 12.3 % (11.6-14.8) Platelet Count 193 K/UL (150-450) Mean Platelet Volume 7.0 FL (6.5-10.1) Neutrophils (%) (Auto) 78.1 % (45.0-75.0) H Lymphocytes (%) (Auto) 14.8 % (20.0-45.0) L Monocytes (%) (Auto) 6.4 % (1.0-10.0) Eosinophils (%) (Auto) 0.3 % (0.0-3.0) Basophils (%) (Auto) 0.4 % (0.0-2.0) Sodium Level 152 MMOL/L (136-145) H Potassium Level 2.3 MMOL/L (3.5-5.1) *L Chloride Level 117 MMOL/L (98-107) H Carbon Dioxide Level 25 MMOL/L (21-32) Anion Gap 10 mmol/L (5-15) Blood Urea Nitrogen 8 mg/dL (7-18) Creatinine 1.1 MG/DL (0.55-1.30) Estimat Glomerular Filtration Rate mL/min (>60) Glucose Level 109 MG/DL (74-106) H Calcium Level 8.0 MG/DL (8.5-10.1) L Phosphorus Level 1.5 MG/DL (2.5-4.9) L Magnesium Level 1.9 MG/DL (1.8-2.4) Total Bilirubin 0.5 MG/DL (0.2-1.0) Aspartate Amino Transf (AST/SGOT) 25 U/L (15-37) Alanine Aminotransferase (ALT/SGPT) 22 U/L (12-78) Alkaline Phosphatase 69 U/L (46-116) Total Protein 6.3 G/DL (6.4-8.2) L Albumin 2.6 G/DL (3.4-5.0) L Globulin 3.7 g/dL Albumin/Globulin Ratio 0.7 (1.0-2.7) L Plan Problems: (1) Ileus (2) Sigmoid volvulus Assessment & Plan: 78 year old male with concerns of sigmoid volvulus. afebrile, HD stable, abnormal electrolytes, distended, tympanic, no abd pain. states he is having flatus now. pending final results of barium enema but from report likely has colonic ileus does not seem to clinically have sigmoid volvulus and CT reviewed and more consistent with ileus. Remains very distended, tympanic, non tender. afebrile, HD stable, no leukocytosis hypo K npo iv fluids replace electrolytes trend labs will follow with serial exams given colonoscopy findings, exam, kub results, labs, and clinical course there is consideration for colectomy. I discussed this option with patient at bedside this morning. he states he needs to talk with his family first. Chava Smith Dec 16, 2018 21:37
--- NOTE | 2018-12-16 21:48 | General Progress Note ---
Assessment/Plan Problem List: (1) Hypokalemia ICD Codes: E87.6 - Hypokalemia SNOMED: 12032934 (2) Ileus ICD Codes: K56.7 - Ileus, unspecified SNOMED: 574211050 (3) Gastroparesis ICD Codes: K31.84 - Gastroparesis SNOMED: 211378675 (4) Sigmoid volvulus ICD Codes: K56.2 - Volvulus SNOMED: 277119264 (5) HTN (hypertension) ICD Codes: I10 - Essential (primary) hypertension SNOMED: 74210375 Status: progressing Assessment/Plan severe hypokalemia is persistently low r/o MEN syndrome r/o villious adenoma still distended abdomin sigmoid volvulus pt has chronic history of persistent hypokalemia no nausea elevated bp is improved Subjective ROS Limited/Unobtainable: Yes Gastrointestinal/Abdominal: Reports: abdomen distended Allergies: Coded Allergies: No Known Allergies (Unverified , 04/22/17) Objective Last 24 Hour Vital Signs Date Time Temp Pulse Resp B/P (MAP) Pulse Ox O2 Delivery O2 Flow Rate FiO2 12/16/18 21:14 171/77 12/16/18 20:01 151/77 12/16/18 16:00 60 12/16/18 16:00 98.2 60 21 151/77 (101) 100 12/16/18 12:18 142/68 12/16/18 12:00 60 12/16/18 12:00 97.7 60 20 142/68 (92) 100 12/16/18 09:00 Room Air 12/16/18 08:00 97.5 60 20 136/72 (93) 100 12/16/18 08:00 60 12/16/18 06:57 121/63 12/16/18 04:00 97.2 60 20 121/63 (82) 97 12/16/18 04:00 60 12/16/18 00:00 97.0 60 20 109/52 (71) 99 12/16/18 00:00 60 Intake and Output 12/15/18 12/16/18 19:00 07:00 Intake Total 300 ml Output Total 8500 ml Balance -8200 ml IV Total 300 ml Output Urine Total 0 ml Stool Total 100 ml Other 8400 ml # Voids 3 # Bowel Movements 1 1 Laboratory Tests 12/16/18 05:20: White Blood Count 8.3, Red Blood Count 4.12L, Hemoglobin 12.8L, Hematocrit 38.5L , Mean Corpuscular Volume 93, Mean Corpuscular Hemoglobin 31.0, Mean Corpuscular Hemoglobin Concent 33.2, Red Cell Distribution Width 12.3, Platelet Count 193, Mean Platelet Volume 7.0, Neutrophils (%) (Auto) 78.1H, Lymphocytes ( %) (Auto) 14.8L, Monocytes (%) (Auto) 6.4, Eosinophils (%) (Auto) 0.3, Basophils (%) (Auto) 0.4, Sodium Level 152H, Potassium Level 2.3*L, Chloride Level 117H, Carbon Dioxide Level 25, Anion Gap 10, Blood Urea Nitrogen 8, Creatinine 1.1, Estimat Glomerular Filtration Rate , Glucose Level 109H, Calcium Level 8.0L, Phosphorus Level 1.5L, Magnesium Level 1.9, Total Bilirubin 0.5, Aspartate Amino Transf (AST/SGOT) 25, Alanine Aminotransferase (ALT/SGPT) 22, Alkaline Phosphatase 69, Total Protein 6.3L, Albumin 2.6L, Globulin 3.7, Albumin/Globulin Ratio 0.7L Height (Feet): 5 Height (Inches): 11.00 Weight (Pounds): 181 Abdomen: hypoactive bowel sounds Jose Francisco Chand MD Dec 16, 2018 21:48
[2018-12-17] VITALS (7 sets, daily range): BP systolic 130–190; BP diastolic 75–82
[2018-12-17] MEDS: HydrALAZINE 25mg tab ORAL SCH ×4 (00:07→17:09)
[2018-12-17] MEDS: Octreotide Acetate 500 MCG in Sodium Chloride 499 ML IV SCH ×4 (01:11→21:45)
[2018-12-17] MEDS: Spironolactone 25mg tab ORAL SCH ×3 (05:52→21:45)
[2018-12-17] MEDS: NovoLOG Insulin Flexpen SUBQ SCH ×4 (06:30→21:46)
--- NOTE | 2018-12-17 07:40 | NUR ---
HAND-OFF: Report given to ANA PAULA Reeder. No acute distress noted at this time.
--- NOTE | 2018-12-17 07:42 | NUR ---
NURSE NOTES: Received report from ANA PAULA Mccabe. Patient is resting in bed, in semi fowlers position. Patient on Clear liquid diet. No signs and symptoms of acute distress at this time. Alert and oriented, verbally responsive. IV is running at RX dose. Safety precaution in place; two side rails up, call light and bed side table within reach, bed in lowest position, brakes and alarm on . Will continue to monitor.
[2018-12-17] MEDS: D5NS 1,000 ML IV SCH (08:20)
[2018-12-17 09:18] LABS: BASOPHILS % (AUTO) 0.3 % (0.0-2.0); EOSINOPHILS % (AUTO) 0.4 % (0.0-3.0); HEMOGLOBIN 13.4 G/DL (14.2-18.0); LYMPHOCYTES % (AUTO) 9.1 % (20.0-45.0); MEAN CORPUSCULAR VOLUME 93 FL (80-99); MONOCYTES % (AUTO) 5.4 % (1.0-10.0); NEUTROPHILS % (AUTO) 84.8 % (45.0-75.0); PLATELET COUNT 212 K/UL (150-450); RED BLOOD COUNT 4.32 M/UL (4.70-6.10); RED CELL DISTRIBUTION WIDTH 12.3 % (11.6-14.8); WHITE BLOOD COUNT 10.2 K/UL (4.8-10.8)
[2018-12-17 09:32] LABS: ANION GAP 14 mmol/L (5-15); BLOOD UREA NITROGEN 6 mg/dL (7-18); CALCIUM 8.1 MG/DL (8.5-10.1); CARBON DIOXIDE 21 MMOL/L (21-32); CHLORIDE 117 MMOL/L (98-107); CREATININE 1.1 MG/DL (0.55-1.30); PHOSPHORUS 2.8 MG/DL (2.5-4.9); SODIUM 151 MMOL/L (136-145)
[2018-12-17 09:33] LABS: POTASSIUM 2.7 MMOL/L (3.5-5.1)
--- NOTE | 2018-12-17 09:43 | General Progress Note ---
Assessment/Plan Problem List: (1) Hypokalemia ICD Codes: E87.6 - Hypokalemia SNOMED: 62494430 (2) Ileus ICD Codes: K56.7 - Ileus, unspecified SNOMED: 352442652 (3) Gastroparesis ICD Codes: K31.84 - Gastroparesis SNOMED: 747596216 (4) Sigmoid volvulus ICD Codes: K56.2 - Volvulus SNOMED: 214680086 (5) HTN (hypertension) ICD Codes: I10 - Essential (primary) hypertension SNOMED: 28807531 Status: progressing Assessment/Plan severe hypokalemia is somewhat improving.requiring large amount of k r/o MEN syndrome r/o villious adenoma still distended abdomin sigmoid volvulus pt has chronic history of persistent hypokalemia consulted dr dayne dillon historian elevated bp is improved Subjective ROS Limited/Unobtainable: Yes Allergies: Coded Allergies: No Known Allergies (Unverified , 04/22/17) Objective Last 24 Hour Vital Signs Date Time Temp Pulse Resp B/P (MAP) Pulse Ox O2 Delivery O2 Flow Rate FiO2 12/17/18 09:11 190/80 12/17/18 08:00 98.2 69 18 190/80 (116) 100 12/17/18 05:53 165/67 12/17/18 04:00 99.0 61 18 172/75 (107) 99 12/17/18 04:00 60 12/17/18 03:41 173/71 12/17/18 00:07 160/75 12/17/18 00:00 60 12/17/18 00:00 97.8 69 18 160/75 (103) 98 12/16/18 21:14 171/77 12/16/18 21:00 Room Air 12/16/18 20:01 151/77 12/16/18 20:00 60 12/16/18 20:00 98.0 61 19 171/77 (108) 99 12/16/18 16:00 60 12/16/18 16:00 98.2 60 21 151/77 (101) 100 12/16/18 12:18 142/68 12/16/18 12:00 60 12/16/18 12:00 97.7 60 20 142/68 (92) 100 Intake and Output 12/16/18 12/17/18 18:59 06:59 Intake Total 360 ml Output Total 700 ml Balance -340 ml Intake Oral 360 ml Output Urine Total 700 ml # Voids 4 # Bowel Movements 2 2 Laboratory Tests 12/17/18 08:35: White Blood Count 10.2, Red Blood Count 4.32L, Hemoglobin 13.4L, Hematocrit 40.0L, Mean Corpuscular Volume 93, Mean Corpuscular Hemoglobin 30.9, Mean Corpuscular Hemoglobin Concent 33.4, Red Cell Distribution Width 12.3, Platelet Count 212, Mean Platelet Volume 6.6, Neutrophils (%) (Auto) 84.8H, Lymphocytes ( %) (Auto) 9.1L, Monocytes (%) (Auto) 5.4, Eosinophils (%) (Auto) 0.4, Basophils (%) (Auto) 0.3, Sodium Level 151H, Potassium Level 2.7*L, Chloride Level 117H, Carbon Dioxide Level 21, Anion Gap 14, Blood Urea Nitrogen 6L, Creatinine 1.1, Estimat Glomerular Filtration Rate , Glucose Level 123H, Hemoglobin A1c [Pending ], Calcium Level 8.1L, Phosphorus Level 2.8, Magnesium Level 1.8, Serotonin [ Pending], Thyroid Stimulating Hormone (TSH) [Pending], Prolactin [Pending] Height (Feet): 5 Height (Inches): 11.00 Weight (Pounds): 181 General Appearance: confused Respiratory/Chest: lungs clear Abdomen: distended Jose Francisco Chand MD Dec 17, 2018 09:43
[2018-12-17] MEDS ORDERED: SODIUM CHLORIDE IV SCH (11:00)
[2018-12-17] MEDS ORDERED: POTASSIUM CHLORIDE IV SCH (11:00)
--- NOTE | 2018-12-17 11:10 | GI Progress Note ---
Assessment/Plan Problems: (1) Sigmoid volvulus ICD Codes: K56.2 - Volvulus SNOMED: 677828698 (2) Gastroparesis ICD Codes: K31.84 - Gastroparesis SNOMED: 603180163 (3) Ileus ICD Codes: K56.7 - Ileus, unspecified SNOMED: 962485592 (4) Anemia ICD Codes: D64.9 - Anemia, unspecified SNOMED: 149472658 (5) Diabetes mellitus ICD Codes: E11.9 - Type 2 diabetes mellitus without complications SNOMED: 89221826 Status: unchanged Status Narrative Discussed with Dr. Ortiz Assessment/Plan Assessment - chronic abd distention - anemia - DM - Hypothyroid - severe hypokalemia - hx of carcinomas KUB reviewed, colonic distention still present SUMMARY OF FINDINGS: 1. Incomplete colonoscopy examination. 2. An area of edema at about 30 cm from the anal verge causing a kind of colonic outlet obstruction, status post biopsy of this area. Also status post biopsy of the sigmoid colon with some inflammation. 3. Severe colonic dilation and ileus, status post decompression, almost 3600 mL of fluid was aspirated in this procedure. Biopsy shows mild active colitis RECOMMENDATIONS: advance diet - Patient must be turned every 2 hours - rectal tube for colonic decompression - roll on (L) lat decub - follow exam - replace K - octreotide gtt The patient might benefit from repeat colonoscopy when more stable to get to the end of the colon to rule out villous adenomatous as a cause of diarrhea. The patient was seen and examined at bedside and all new and available data was reviewed in the patients chart. I agree with the above findings, impression and plan. (Patient seen earlier today. Signature stamp does not reflect patient encounter time.). - Tavares Ortiz MD Subjective Subjective Abdominal distention still present, has improved Has abdominal discomfort Objective Last 24 Hour Vital Signs Date Time Temp Pulse Resp B/P (MAP) Pulse Ox O2 Delivery O2 Flow Rate FiO2 12/17/18 09:45 156/76 (102) 12/17/18 09:11 190/80 12/17/18 09:00 Room Air 12/17/18 08:00 98.2 69 18 190/80 (116) 100 12/17/18 05:53 165/67 12/17/18 04:00 99.0 61 18 172/75 (107) 99 12/17/18 04:00 60 12/17/18 03:41 173/71 12/17/18 00:07 160/75 12/17/18 00:00 60 12/17/18 00:00 97.8 69 18 160/75 (103) 98 12/16/18 21:14 171/77 12/16/18 21:00 Room Air 12/16/18 20:01 151/77 12/16/18 20:00 60 12/16/18 20:00 98.0 61 19 171/77 (108) 99 12/16/18 16:00 60 12/16/18 16:00 98.2 60 21 151/77 (101) 100 12/16/18 12:18 142/68 12/16/18 12:00 60 12/16/18 12:00 97.7 60 20 142/68 (92) 100 Intake and Output 12/16/18 12/17/18 18:59 06:59 Intake Total 360 ml Output Total 700 ml Balance -340 ml Intake Oral 360 ml Output Urine Total 700 ml # Voids 4 # Bowel Movements 2 2 Laboratory Tests Test 12/17/18 08:35 White Blood Count 10.2 K/UL (4.8-10.8) Red Blood Count 4.32 M/UL (4.70-6.10) L Hemoglobin 13.4 G/DL (14.2-18.0) L Hematocrit 40.0 % (42.0-52.0) L Mean Corpuscular Volume 93 FL (80-99) Mean Corpuscular Hemoglobin 30.9 PG (27.0-31.0) Mean Corpuscular Hemoglobin Concent 33.4 G/DL (32.0-36.0) Red Cell Distribution Width 12.3 % (11.6-14.8) Platelet Count 212 K/UL (150-450) Mean Platelet Volume 6.6 FL (6.5-10.1) Neutrophils (%) (Auto) 84.8 % (45.0-75.0) H Lymphocytes (%) (Auto) 9.1 % (20.0-45.0) L Monocytes (%) (Auto) 5.4 % (1.0-10.0) Eosinophils (%) (Auto) 0.4 % (0.0-3.0) Basophils (%) (Auto) 0.3 % (0.0-2.0) Sodium Level 151 MMOL/L (136-145) H Potassium Level 2.7 MMOL/L (3.5-5.1) *L Chloride Level 117 MMOL/L (98-107) H Carbon Dioxide Level 21 MMOL/L (21-32) Anion Gap 14 mmol/L (5-15) Blood Urea Nitrogen 6 mg/dL (7-18) L Creatinine 1.1 MG/DL (0.55-1.30) Estimat Glomerular Filtration Rate mL/min (>60) Glucose Level 123 MG/DL (74-106) H Hemoglobin A1c 6.2 % (4.3-6.0) H Calcium Level 8.1 MG/DL (8.5-10.1) L Phosphorus Level 2.8 MG/DL (2.5-4.9) Magnesium Level 1.8 MG/DL (1.8-2.4) Serotonin Pending Thyroid Stimulating Hormone (TSH) 0.477 uiU/mL (0.358-3.740) Prolactin Pending Height (Feet): 5 Height (Inches): 11.00 Weight (Pounds): 181 General Appearance: WD/WN, no apparent distress, alert Cardiovascular: normal rate Respiratory/Chest: normal breath sounds, no respiratory distress Abdominal Exam: normal bowel sounds, non tender, soft, distended Extremities: non-tender Cristina Galloway NP Dec 17, 2018 11:10
[2018-12-17] MEDS: Cefepime HCl 1 GM in D5W 55 ML IVPB SCH ×2 (11:29→23:00)
--- NOTE | 2018-12-17 14:55 | Surgery Progress Note ---
Surgery Progress Note Subjective Additional Comments Patient seen and examined at bedside. No acute events. States he feels okay but still with abdominal distention. No nausea or vomiting. Passing flatus. Objective Last 24 Hour Vital Signs Date Time Temp Pulse Resp B/P (MAP) Pulse Ox O2 Delivery O2 Flow Rate FiO2 12/17/18 12:00 98.2 70 20 160/77 (104) 100 12/17/18 12:00 60 12/17/18 11:55 160/77 12/17/18 09:45 156/76 (102) 12/17/18 09:11 190/80 12/17/18 09:00 Room Air 12/17/18 08:00 98.2 69 18 190/80 (116) 100 12/17/18 08:00 59 12/17/18 05:53 165/67 12/17/18 04:00 99.0 61 18 172/75 (107) 99 12/17/18 04:00 60 12/17/18 03:41 173/71 12/17/18 00:07 160/75 12/17/18 00:00 60 12/17/18 00:00 97.8 69 18 160/75 (103) 98 12/16/18 21:14 171/77 12/16/18 21:00 Room Air 12/16/18 20:01 151/77 12/16/18 20:00 60 12/16/18 20:00 98.0 61 19 171/77 (108) 99 12/16/18 16:00 60 12/16/18 16:00 98.2 60 21 151/77 (101) 100 I&O Intake and Output 12/16/18 12/17/18 19:00 07:00 Intake Total 360 ml Output Total 700 ml Balance -340 ml Intake Oral 360 ml Output Urine Total 700 ml # Voids 4 # Bowel Movements 2 2 Cardiovascular: RSR Respiratory: clear Abdomen: soft, distended, non-tender, decreased bowel sounds Extremities: no cyanosis Laboratory Tests Test 12/17/18 08:35 White Blood Count 10.2 K/UL (4.8-10.8) Red Blood Count 4.32 M/UL (4.70-6.10) L Hemoglobin 13.4 G/DL (14.2-18.0) L Hematocrit 40.0 % (42.0-52.0) L Mean Corpuscular Volume 93 FL (80-99) Mean Corpuscular Hemoglobin 30.9 PG (27.0-31.0) Mean Corpuscular Hemoglobin Concent 33.4 G/DL (32.0-36.0) Red Cell Distribution Width 12.3 % (11.6-14.8) Platelet Count 212 K/UL (150-450) Mean Platelet Volume 6.6 FL (6.5-10.1) Neutrophils (%) (Auto) 84.8 % (45.0-75.0) H Lymphocytes (%) (Auto) 9.1 % (20.0-45.0) L Monocytes (%) (Auto) 5.4 % (1.0-10.0) Eosinophils (%) (Auto) 0.4 % (0.0-3.0) Basophils (%) (Auto) 0.3 % (0.0-2.0) Sodium Level 151 MMOL/L (136-145) H Potassium Level 2.7 MMOL/L (3.5-5.1) *L Chloride Level 117 MMOL/L (98-107) H Carbon Dioxide Level 21 MMOL/L (21-32) Anion Gap 14 mmol/L (5-15) Blood Urea Nitrogen 6 mg/dL (7-18) L Creatinine 1.1 MG/DL (0.55-1.30) Estimat Glomerular Filtration Rate mL/min (>60) Glucose Level 123 MG/DL (74-106) H Hemoglobin A1c 6.2 % (4.3-6.0) H Calcium Level 8.1 MG/DL (8.5-10.1) L Phosphorus Level 2.8 MG/DL (2.5-4.9) Magnesium Level 1.8 MG/DL (1.8-2.4) Serotonin Pending Thyroid Stimulating Hormone (TSH) 0.477 uiU/mL (0.358-3.740) Prolactin Pending Plan Problems: (1) Ileus (2) Sigmoid volvulus Assessment & Plan: 78 year old male with concerns of sigmoid volvulus. afebrile, HD stable, abnormal electrolytes, distended, tympanic, no abd pain. states he is having flatus now. pending final results of barium enema but from report likely has colonic ileus does not seem to clinically have sigmoid volvulus and CT reviewed and more consistent with ileus. Remains very distended, tympanic, non tender. afebrile, HD stable, no leukocytosis hypo K okay for diet iv fluids replace electrolytes trend labs will follow with serial exams given colonoscopy findings, exam, kub results, labs, and clinical course there is consideration for colectomy. I discussed this option with patient. he states he needs to talk with his family first. had not talked to family yet. will await decision Chava Smith Dec 17, 2018 14:55
--- NOTE | 2018-12-17 15:01 | Nephrology Progress Note ---
Assessment/Plan Problem List: (1) Hypokalemia Assessment: persistant (2) UTI (urinary tract infection) (3) HTN (hypertension) (4) Ileus Assessment Low K Volvolus Anemia hypothyroid HTN BPH Dementia DM Plan Per GI ? Trial of Somatostatin ? CONSIDER COLECTOMY K supplement IV and PO again today PO Aldactone increase dose Hydralazine for BP add Reglan change Rocephin to Cefepime, Pseudomonas UTI TSH wnl clear liquids IV hydrate discussed with RN Subjective ROS Limited/Unobtainable: No Constitutional: Reports: malaise, weakness Objective Objective Last 24 Hour Vital Signs Date Time Temp Pulse Resp B/P (MAP) Pulse Ox O2 Delivery O2 Flow Rate FiO2 12/17/18 12:00 98.2 70 20 160/77 (104) 100 12/17/18 12:00 60 12/17/18 11:55 160/77 12/17/18 09:45 156/76 (102) 12/17/18 09:11 190/80 12/17/18 09:00 Room Air 12/17/18 08:00 98.2 69 18 190/80 (116) 100 12/17/18 08:00 59 12/17/18 05:53 165/67 12/17/18 04:00 99.0 61 18 172/75 (107) 99 12/17/18 04:00 60 12/17/18 03:41 173/71 12/17/18 00:07 160/75 12/17/18 00:00 60 12/17/18 00:00 97.8 69 18 160/75 (103) 98 12/16/18 21:14 171/77 12/16/18 21:00 Room Air 12/16/18 20:01 151/77 12/16/18 20:00 60 12/16/18 20:00 98.0 61 19 171/77 (108) 99 12/16/18 16:00 60 12/16/18 16:00 98.2 60 21 151/77 (101) 100 Intake and Output 12/16/18 12/17/18 19:00 07:00 Intake Total 360 ml Output Total 700 ml Balance -340 ml Intake Oral 360 ml Output Urine Total 700 ml # Voids 4 # Bowel Movements 2 2 Laboratory Tests 12/17/18 08:35: White Blood Count 10.2, Red Blood Count 4.32L, Hemoglobin 13.4L, Hematocrit 40.0L, Mean Corpuscular Volume 93, Mean Corpuscular Hemoglobin 30.9, Mean Corpuscular Hemoglobin Concent 33.4, Red Cell Distribution Width 12.3, Platelet Count 212, Mean Platelet Volume 6.6, Neutrophils (%) (Auto) 84.8H, Lymphocytes ( %) (Auto) 9.1L, Monocytes (%) (Auto) 5.4, Eosinophils (%) (Auto) 0.4, Basophils (%) (Auto) 0.3, Sodium Level 151H, Potassium Level 2.7*L, Chloride Level 117H, Carbon Dioxide Level 21, Anion Gap 14, Blood Urea Nitrogen 6L, Creatinine 1.1, Estimat Glomerular Filtration Rate , Glucose Level 123H, Hemoglobin A1c 6.2H, Calcium Level 8.1L, Phosphorus Level 2.8, Magnesium Level 1.8, Serotonin [ Pending], Thyroid Stimulating Hormone (TSH) 0.477, Prolactin [Pending] Height (Feet): 5 Height (Inches): 11.00 Weight (Pounds): 181 General Appearance: no apparent distress Cardiovascular: normal rate Abdomen: distended Objective no change Herve Marshall MD Dec 17, 2018 15:01
[2018-12-17] MEDS ORDERED: Potassium Chloride 40 MEQ in Sodium Chloride 550 ML IV SCH (17:00)
--- NOTE | 2018-12-17 19:00 | Consultation ---
DATE OF CONSULTATION: 12/17/2018 CONSULTING PHYSICIAN: Nicholas Thakkar M.D. REFERRING PHYSICIAN: Jose Francisco Chand M.D. PERRTINENT HISTORY:An 78-year-old black male admitted with symptoms of hypokalemia and persistent diarrhea..I was asked to rule out Carcinoid mversus MEN syndrome..He has been in frairly good health.. PERSONAL HISTORY: Negative REVIEW OF SYSTEMS: 14 point review negative._. PHYSICAL EXAMINATION: GENERAL: The patient is in no acute distress. VITAL SIGNS: Blood pressure 131/77, pulse 64, respiratory rate 18, temperature _98.0_. HEAD AND NECK: Unremarkable. LUNGS: Clear. HEART: Regular. ABDOMEN: Distended with bowel sounds present. EXTREMITIES: No edema. NEURO: Cranial nerves II through XII are grossly intact with toes downgoing to plantar stimulation INV:K .2.7-3.1 ASSESSMENT: Hypokalemia due to diarrhea.R?o Carcinoid vs MEN syndrome DISCUSSION: The patient is on clear liquid diet and 24-hour urine for 5-HIAA and Metanephrine is being performed. along with Prolacitin, hemoglobin A1c,and TSH. Albumin 2.6, calcium 8.8, _adjusted from 8.0. K improved from 2.7 on 12/16 to 3.1 on 12/17 with reoplacement.No other studies are indicated. Nicholas Thakkar M.D. DR: AIDAN JOB#: [id number] CC: MARKUS
--- NOTE | 2018-12-17 19:30 | NUR ---
NURSE NOTES: Received pt. and report from ANA PAULA Mayen. Observe pt. resting in bed with both eyes open and watching television. monitor worker is in placed, No IV access; IV has been d/c due to infiltration. Bed is in the lowest position and locked, call light within reach. No signs and symptoms of acute distress noted at this time. Will continue plane of care.
--- NOTE | 2018-12-17 19:43 | NUR ---
HAND-OFF: Report given to ANA PAULA Pepe.
--- NOTE | 2018-12-17 19:48 | NUR ---
NURSE NOTES: Attempted IV insertions twice and was unsuccessful. Will ask another RN to attempt.
--- NOTE | 2018-12-17 20:30 | NUR ---
NURSE NOTES: Another RN attempted IV insertions on pt. and was unsuccessful. Will call PRINCIPAL SECRETARY to attempt.
--- NOTE | 2018-12-17 21:32 | NUR ---
NURSE NOTES: INK JET OPERATOR attempted IV insertion and was also unsuccessful. Will give pt. a break and will attempt IV insertion again.
--- NOTE | 2018-12-17 22:36 | NUR ---
NURSE NOTES: Second ICE BAG ASSEMBLER was unsuccessful with IV insertions. Will contact Dr. Chand regarding no IV access.
--- NOTE | 2018-12-17 23:15 | NUR ---
NURSE NOTES: Contacted Dr. Chand and COLE Stack regarding multiple unsuccessful IV insertions. COLE Stack ordered PICC line insertion in AM.
--- NOTE | 2018-12-17 23:16 | NUR ---
NURSE NOTES: Informed Dr. Chand and COLE Stack that pt. will not be receiving IV meds/fluids tonight due to no IV access.
[2018-12-18] VITALS (7 sets, daily range): BP systolic 150–173; BP diastolic 71–90
[2018-12-18] MEDS: HydrALAZINE 25mg tab ORAL SCH ×3 (00:26→22:23)
[2018-12-18] MEDS: D5NS 1,000 ML IV SCH (03:30)
[2018-12-18] MEDS ORDERED: Lidocaine 1% Plain 30 ml INJ SCH (04:00)
[2018-12-18] MEDS ORDERED: Heparin1,000 units/500ml Premix(Conc:2 units/ml) IV SCH (04:00)
[2018-12-18] MEDS: Spironolactone 25mg tab ORAL SCH (06:25)
[2018-12-18] MEDS: NovoLOG Insulin Flexpen SUBQ SCH ×4 (06:26→20:38)
[2018-12-18] MEDS: Octreotide Acetate 500 MCG in Sodium Chloride 499 ML IV SCH ×2 (07:00→18:05)
--- NOTE | 2018-12-18 07:00 | NUR ---
HAND-OFF: Report given to ANA PAULA Mayen.
--- NOTE | 2018-12-18 07:05 | NUR ---
NURSE NOTES: Report received from ANA PAULA Pepe. Pt is resting comfortably in bed, sleeping. No signs and symptoms of distress at this time. Respirations are even and unlabored on room air. Patient has no IV site, Waiting for the family member to speak and convince him for PICC line placement. Bed is at lowest position, brakes engaged, two side rails up, bed alarm on. Bed side table and call light within reach. Pt is in stable condition at this time; will continue to monitor.
[2018-12-18 07:06] LABS: ALANINE AMINOTRANSFERASE 22 U/L (12-78); ALBUMIN 2.7 G/DL (3.4-5.0); ALBUMIN/GLOBULIN RATIO 0.7 (1.0-2.7); ALKALINE PHOSPHATASE 75 U/L (46-116); ANION GAP 13 mmol/L (5-15); ASPARTATE AMINO TRANSFERASE 25 U/L (15-37); BILIRUBIN,TOTAL 0.5 MG/DL (0.2-1.0); BLOOD UREA NITROGEN 5 mg/dL (7-18); CALCIUM 7.8 MG/DL (8.5-10.1); CARBON DIOXIDE 20 MMOL/L (21-32); CHLORIDE 114 MMOL/L (98-107); PHOSPHORUS 1.8 MG/DL (2.5-4.9); POTASSIUM 3.1 MMOL/L (3.5-5.1); SODIUM 147 MMOL/L (136-145)
[2018-12-18] MEDS ORDERED: Heparin1,000 units/500ml Premix(Conc:2 units/ml) IV PRN ×2 (10:10→10:15)
[2018-12-18] MEDS ORDERED: Lidocaine 1% Plain 30 ml INJ PRN ×2 (10:10→10:15)
[2018-12-18] MEDS ORDERED: Potassium Phosphate 30 MM in NS 275 ML IV ONE (11:00)
--- NOTE | 2018-12-18 11:01 | GI Progress Note ---
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 Ortiz Assessment/Plan Assessment - chronic abd distention - anemia - DM - Hypothyroid - severe hypokalemia - hx of carcinomas KUB reviewed, colonic distention still present Multiple failed IV attempts SUMMARY OF FINDINGS: 1. Incomplete colonoscopy examination. 2. An area of edema at about 30 cm from the anal verge causing a kind of colonic outlet obstruction, status post biopsy of this area. Also status post biopsy of the sigmoid colon with some inflammation. 3. Severe colonic dilation and ileus, status post decompression, almost 3600 mL of fluid was aspirated in this procedure. Biopsy shows mild active colitis RECOMMENDATIONS: PICC line placement advance diet - Patient must be turned every 2 hours - rectal tube for colonic decompression - roll on (L) lat decub - follow exam - replace K - octreotide gtt - PT evaluation The patient might benefit from repeat colonoscopy when more stable to get to the end of the colon to rule out villous adenomatous as a cause of diarrhea. The patient was seen and examined at bedside and all new and available data was reviewed in the patients chart. I agree with the above findings, impression and plan. (Patient seen earlier today. Signature stamp does not reflect patient encounter time.). - Tavares Ortiz MD Subjective Subjective Abdominal distention still present, has improved Has abdominal discomfort The patient states he feels a lot better Patient wants to be discharged Objective Last 24 Hour Vital Signs Date Time Temp Pulse Resp B/P (MAP) Pulse Ox O2 Delivery O2 Flow Rate FiO2 12/18/18 08:00 98.2 69 18 155/81 (105) 97 12/18/18 06:26 173/83 12/18/18 04:00 98.2 60 17 164/83 (110) 100 12/18/18 04:00 60 12/18/18 00:26 150/90 12/18/18 00:00 70 12/18/18 00:00 97.8 72 20 150/90 (110) 100 12/17/18 21:00 Room Air 12/17/18 20:00 61 12/17/18 20:00 98.7 65 18 163/82 (109) 100 12/17/18 17:09 130/82 12/17/18 16:00 60 12/17/18 16:00 98.4 73 18 130/82 (98) 97 12/17/18 12:00 98.2 70 20 160/77 (104) 100 12/17/18 12:00 60 12/17/18 11:55 160/77 Intake and Output 12/17/18 12/18/18 18:59 06:59 Intake Total 360 ml Output Total 100 ml 350 ml Balance 260 ml -350 ml Intake Oral 360 ml Output Urine Total 100 ml 350 ml # Voids 1 # Bowel Movements 2 2 Laboratory Tests Test 12/18/18 03:00 12/18/18 04:00 Urine Total Volume 24 Hours Pending Urine Creatinine 24 Hour Pending Urine 5-HIAA 24 Hour Pending Sodium Level 147 MMOL/L (136-145) H Potassium Level 3.1 MMOL/L (3.5-5.1) L Chloride Level 114 MMOL/L (98-107) H Carbon Dioxide Level 20 MMOL/L (21-32) L Anion Gap 13 mmol/L (5-15) Blood Urea Nitrogen 5 mg/dL (7-18) L Creatinine 1.0 MG/DL (0.55-1.30) Estimat Glomerular Filtration Rate mL/min (>60) Glucose Level 115 MG/DL (74-106) H Uric Acid 4.6 MG/DL (2.6-7.2) Calcium Level 7.8 MG/DL (8.5-10.1) L Phosphorus Level 1.8 MG/DL (2.5-4.9) L Magnesium Level 1.6 MG/DL (1.8-2.4) L Total Bilirubin 0.5 MG/DL (0.2-1.0) Aspartate Amino Transf (AST/SGOT) 25 U/L (15-37) Alanine Aminotransferase (ALT/SGPT) 22 U/L (12-78) Alkaline Phosphatase 75 U/L (46-116) C-Reactive Protein, Quantitative < 0.4 mg/dL (0.00-0.90) Pro-B-Type Natriuretic Peptide 2581 pg/mL (0-125) H Total Protein 6.4 G/DL (6.4-8.2) Albumin 2.7 G/DL (3.4-5.0) L Globulin 3.7 g/dL Albumin/Globulin Ratio 0.7 (1.0-2.7) L Height (Feet): 5 Height (Inches): 11.00 Weight (Pounds): 181 General Appearance: WD/WN, no apparent distress, alert Cardiovascular: normal rate Respiratory/Chest: normal breath sounds, no respiratory distress Abdominal Exam: normal bowel sounds, non tender, soft, distended - Soft Extremities: non-tender Cristina Galloway NP Dec 18, 2018 11:01
--- NOTE | 2018-12-18 12:13 | Diagnostic Imaging Report ---
Indication: ed tech venous access Findings: After the indications, procedure, risks, complications, and alternatives of the procedure were explained, written informed consent was obtained. The right upper extremity was prepped with alcohol. All elements of maximal sterile barrier technique were followed including usage of a cap, mask, sterile gown, sterile gloves, hand hygiene and a large sterile sheet. Sonographic evaluation of the upper extremity was performed demonstrating a patent and compressible basilic vein. Access was obtained under real-time ultrasound guidance (with utilization of sterile gel and sterile probe cover) and digital image was saved and archived. An .018 wire was introduced. Needle exchanged for a 5 Moldovan peel-away sheath. Measurements were obtained. A 5 Mold[place] dual-lumen Power PICC line catheter was cut to 42 cm and introduced over the wire. Peel-away sheath and wire were removed.Catheter was secured to the skin using 2-0 Prolene suture. Both ports aspirate and flush easily. A single fluoroscopic image shows the distal tip in the superior vena cava. Total fluoroscopic time 8.5 seconds Impression: Successful placement of an upper extremity PICC line catheter
--- NOTE | 2018-12-18 13:30 | NUR ---
NURSE NOTES: Patient went off the floor to place the PICC Line. We have got the order from primary physician to use the PICC Line. Start giving IV medication, Maxipime is not delivered from the pharmacy. Called and talked to foundry technician she will bring it to the floor.
[2018-12-18] MEDS: Cefepime HCl 1 GM in D5W 55 ML IVPB SCH ×2 (13:59→23:16)
[2018-12-18] MEDS ORDERED: HydrALAZINE 50mg tab ORAL SCH (14:00)
--- NOTE | 2018-12-18 16:29 | Nephrology Progress Note ---
Assessment/Plan Problem List: (1) Hypokalemia Assessment: persistant (2) UTI (urinary tract infection) (3) HTN (hypertension) (4) Ileus Assessment Low K Volvolus Anemia hypothyroid HTN BPH Dementia DM Plan Per GI adjust BP meds ? Trial of Somatostatin ? K supplement IV and PO again today PO Aldactone increase dose Hydralazine for BP add Reglan change Rocephin to Cefepime, Pseudomonas UTI TSH wnl clear liquids IV hydrate discussed with RN Subjective ROS Limited/Unobtainable: No Constitutional: Reports: malaise, weakness Objective Objective Last 24 Hour Vital Signs Date Time Temp Pulse Resp B/P (MAP) Pulse Ox O2 Delivery O2 Flow Rate FiO2 12/18/18 13:22 161/77 12/18/18 12:00 60 12/18/18 12:00 98.0 60 18 161/77 (105) 97 12/18/18 09:00 Room Air 12/18/18 08:00 98.2 69 18 155/81 (105) 97 12/18/18 08:00 60 12/18/18 06:26 173/83 12/18/18 04:00 98.2 60 17 164/83 (110) 100 12/18/18 04:00 60 12/18/18 00:26 150/90 12/18/18 00:00 70 12/18/18 00:00 97.8 72 20 150/90 (110) 100 12/17/18 21:00 Room Air 12/17/18 20:00 61 12/17/18 20:00 98.7 65 18 163/82 (109) 100 12/17/18 17:09 130/82 Intake and Output 12/17/18 12/18/18 18:59 06:59 Intake Total 360 ml Output Total 100 ml 350 ml Balance 260 ml -350 ml Intake Oral 360 ml Output Urine Total 100 ml 350 ml # Voids 1 # Bowel Movements 2 2 Laboratory Tests 12/18/18 03:00: Urine Total Volume 24 Hours [Pending], Urine Creatinine 24 Hour [Pending], Urine 5-HIAA 24 Hour [Pending] 12/18/18 04:00: Sodium Level 147H, Potassium Level 3.1L, Chloride Level 114H, Carbon Dioxide Level 20L, Anion Gap 13, Blood Urea Nitrogen 5L, Creatinine 1.0, Estimat Glomerular Filtration Rate , Glucose Level 115H, Uric Acid 4.6, Calcium Level 7.8L, Phosphorus Level 1.8L, Magnesium Level 1.6L, Total Bilirubin 0.5, Aspartate Amino Transf (AST/SGOT) 25, Alanine Aminotransferase (ALT/SGPT) 22, Alkaline Phosphatase 75, C-Reactive Protein, Quantitative < 0.4, Pro-B-Type Natriuretic Peptide 2581H, Total Protein 6.4, Albumin 2.7L, Globulin 3.7, Albumin/Globulin Ratio 0.7L Height (Feet): 5 Height (Inches): 11.00 Weight (Pounds): 181 General Appearance: no apparent distress, lethargic Respiratory/Chest: decreased breath sounds Abdomen: distended Objective no change Herve Marshall MD Dec 18, 2018 16:29
--- NOTE | 2018-12-18 16:53 | Surgery Progress Note ---
Surgery Progress Note Subjective Symptoms: improved, pain absent, tolerating diet, passing flatus, BM Objective Last 24 Hour Vital Signs Date Time Temp Pulse Resp B/P (MAP) Pulse Ox O2 Delivery O2 Flow Rate FiO2 12/18/18 13:22 161/77 12/18/18 12:00 60 12/18/18 12:00 98.0 60 18 161/77 (105) 97 12/18/18 09:00 Room Air 12/18/18 08:00 98.2 69 18 155/81 (105) 97 12/18/18 08:00 60 12/18/18 06:26 173/83 12/18/18 04:00 98.2 60 17 164/83 (110) 100 12/18/18 04:00 60 12/18/18 00:26 150/90 12/18/18 00:00 70 12/18/18 00:00 97.8 72 20 150/90 (110) 100 12/17/18 21:00 Room Air 12/17/18 20:00 61 12/17/18 20:00 98.7 65 18 163/82 (109) 100 12/17/18 17:09 130/82 I&O Intake and Output 12/17/18 12/18/18 18:59 06:59 Intake Total 360 ml Output Total 100 ml 350 ml Balance 260 ml -350 ml Intake Oral 360 ml Output Urine Total 100 ml 350 ml # Voids 1 # Bowel Movements 2 2 Drains: other Cardiovascular: RSR Respiratory: clear Abdomen: soft, distended, non-tender, decreased bowel sounds Extremities: no tenderness, no cyanosis Laboratory Tests Test 12/18/18 03:00 12/18/18 04:00 Urine Total Volume 24 Hours Pending Urine Creatinine 24 Hour Pending Urine 5-HIAA 24 Hour Pending Sodium Level 147 MMOL/L (136-145) H Potassium Level 3.1 MMOL/L (3.5-5.1) L Chloride Level 114 MMOL/L (98-107) H Carbon Dioxide Level 20 MMOL/L (21-32) L Anion Gap 13 mmol/L (5-15) Blood Urea Nitrogen 5 mg/dL (7-18) L Creatinine 1.0 MG/DL (0.55-1.30) Estimat Glomerular Filtration Rate mL/min (>60) Glucose Level 115 MG/DL (74-106) H Uric Acid 4.6 MG/DL (2.6-7.2) Calcium Level 7.8 MG/DL (8.5-10.1) L Phosphorus Level 1.8 MG/DL (2.5-4.9) L Magnesium Level 1.6 MG/DL (1.8-2.4) L Total Bilirubin 0.5 MG/DL (0.2-1.0) Aspartate Amino Transf (AST/SGOT) 25 U/L (15-37) Alanine Aminotransferase (ALT/SGPT) 22 U/L (12-78) Alkaline Phosphatase 75 U/L (46-116) C-Reactive Protein, Quantitative < 0.4 mg/dL (0.00-0.90) Pro-B-Type Natriuretic Peptide 2581 pg/mL (0-125) H Total Protein 6.4 G/DL (6.4-8.2) Albumin 2.7 G/DL (3.4-5.0) L Globulin 3.7 g/dL Albumin/Globulin Ratio 0.7 (1.0-2.7) L Plan Problems: (1) Ileus (2) Sigmoid volvulus Assessment & Plan: 78 year old male with concerns of sigmoid volvulus. afebrile, HD stable, abnormal electrolytes, distended, tympanic, no abd pain. states he is having flatus now. pending final results of barium enema but from report likely has colonic ileus does not seem to clinically have sigmoid volvulus and CT reviewed and more consistent with ileus. Remains very distended, tympanic, non tender. afebrile, HD stable, no leukocytosis hypo K okay for diet iv fluids replace electrolytes trend labs will follow with serial exams given colonoscopy findings, exam, kub results, labs, and clinical course there is consideration for colectomy. I discussed this option with patient. he states he needs to talk with his family first. had not talked to family yet. Chava Smith Dec 18, 2018 16:53
[2018-12-18] MEDS: Spironolactone 50mg tab ORAL SCH (17:08)
--- NOTE | 2018-12-18 19:08 | NUR ---
CASE MANAGEMENT: REVIEW SI: ILEUS . SIGMOID VOLVULUS . HYPOKALEMIA COLONOSCOPY w/BIOPSY 12/15 T 98.8 HR 61 RR 19 BP 173/81 SAT 97% ROOM AIR NA 147 K 3.1 IS: ALDACTONE PO BID K-DUR PO TID OCTREOTIDE IV GTT CEFEPIME IV Q12HR FULL LIQUID PO DIET PT EVAL TELEMETRY UNIT STATUS DCP: PATIENT IS FROM [facility]
--- NOTE | 2018-12-18 19:15 | NUR ---
NURSE NOTES: Received pt. and report from ANA PAULA Mayen. Observe pt. resting in bed with both eyes open and watching television. testing and regulating technician is in placed, PICC line is intact, asymptomatic, and patent. Bed is in the lowest position and locked, call light within reach. No signs and symptoms of acute distress noted at this time. Will continue plan of care.
--- NOTE | 2018-12-18 19:25 | NUR ---
HAND-OFF: Report given to ANA PAULA Pepe.
[2018-12-18] MEDS: Dyna-Hex 2% Top Sol 2oz TOPIC SCH (20:35)
--- NOTE | 2018-12-18 21:46 | General Progress Note ---
Assessment/Plan Problem List: (1) Hypokalemia ICD Codes: E87.6 - Hypokalemia SNOMED: 52043360 (2) Ileus ICD Codes: K56.7 - Ileus, unspecified SNOMED: 028858376 (3) Gastroparesis ICD Codes: K31.84 - Gastroparesis SNOMED: 127881162 (4) Sigmoid volvulus ICD Codes: K56.2 - Volvulus SNOMED: 995930216 (5) HTN (hypertension) ICD Codes: I10 - Essential (primary) hypertension SNOMED: 07286165 Status: progressing Assessment/Plan severe hypokalemia abdomen is still distended dementia was confused and agitated r/o MEN syndrome r/o villious adenoma still distended abdomin sigmoid volvulus pt elevated bp is improved Subjective ROS Limited/Unobtainable: Yes Allergies: Coded Allergies: No Known Allergies (Unverified , 04/22/17) Objective Last 24 Hour Vital Signs Date Time Temp Pulse Resp B/P (MAP) Pulse Ox O2 Delivery O2 Flow Rate FiO2 12/18/18 18:45 154/75 (101) 12/18/18 18:18 173/81 12/18/18 16:00 60 12/18/18 16:00 98.8 61 19 173/81 (111) 99 12/18/18 13:22 161/77 12/18/18 12:00 60 12/18/18 12:00 98.0 60 18 161/77 (105) 97 12/18/18 09:00 Room Air 12/18/18 08:00 98.2 69 18 155/81 (105) 97 12/18/18 08:00 60 12/18/18 06:26 173/83 12/18/18 04:00 98.2 60 17 164/83 (110) 100 12/18/18 04:00 60 12/18/18 00:26 150/90 12/18/18 00:00 70 12/18/18 00:00 97.8 72 20 150/90 (110) 100 Intake and Output 12/17/18 12/18/18 19:00 07:00 Intake Total 360 ml Output Total 100 ml 350 ml Balance 260 ml -350 ml Intake Oral 360 ml Output Urine Total 100 ml 350 ml # Voids 1 # Bowel Movements 2 2 Laboratory Tests 12/18/18 03:00: Urine Total Volume 24 Hours [Pending], Urine Creatinine 24 Hour [Pending], Urine 5-HIAA 24 Hour [Pending] 12/18/18 04:00: Sodium Level 147H, Potassium Level 3.1L, Chloride Level 114H, Carbon Dioxide Level 20L, Anion Gap 13, Blood Urea Nitrogen 5L, Creatinine 1.0, Estimat Glomerular Filtration Rate , Glucose Level 115H, Uric Acid 4.6, Calcium Level 7.8L, Phosphorus Level 1.8L, Magnesium Level 1.6L, Total Bilirubin 0.5, Aspartate Amino Transf (AST/SGOT) 25, Alanine Aminotransferase (ALT/SGPT) 22, Alkaline Phosphatase 75, C-Reactive Protein, Quantitative < 0.4, Pro-B-Type Natriuretic Peptide 2581H, Total Protein 6.4, Albumin 2.7L, Globulin 3.7, Albumin/Globulin Ratio 0.7L Height (Feet): 5 Height (Inches): 11.00 Weight (Pounds): 181 General Appearance: confused Cardiovascular: normal rate Respiratory/Chest: lungs clear Abdomen: distended Jose Francisco Chand MD Dec 18, 2018 21:46
--- NOTE | 2018-12-18 23:45 | Geriatric Medicine Prog Note ---
DATE: 12/18/2018 SUBJECTIVE: The patient felt comfortable today. PHYSICAL EXAMINATION: VITAL SIGNS: Stable. RESPIRATORY: Clear. CARDIOVASCULAR: Regular. INV:K 2.7 increased to 3.1 ASSESSMENT: 1. Hypokalemia stablee. 2. Rule out MEN __ versus carcinoid syndrome _ PLANS:24 hour urine for_ metanephrine and 5-HIAA.Serum Prolactin,Hba1c and TSH. Nicholas Thakkar M.D. DR: ETIENNE JOB#: [id number] CC: MARKUS
[2018-12-19] VITALS (7 sets, daily range): BP systolic 154–182; BP diastolic 69–105
[2018-12-19] MEDS: Octreotide Acetate 500 MCG in Sodium Chloride 499 ML IV SCH ×2 (02:48→12:39)
[2018-12-19] MEDS: NovoLOG Insulin Flexpen SUBQ SCH ×4 (06:30→20:29)
[2018-12-19] MEDS: HydrALAZINE 25mg tab ORAL SCH ×3 (06:32→21:32)
--- NOTE | 2018-12-19 07:10 | NUR ---
NURSE NOTES: Report received from ANA PAULA Pepe. Pt is resting comfortably in bed, sleeping. No signs and symptoms of distress at this time. Respirations are even and unlabored on room air. Bed is at lowest position, brakes engaged, two side rails up, bed alarm on. Bed side table and call light within reach. Pt is in stable condition at this time; will continue to monitor.
[2018-12-19 07:19] LABS: ANION GAP 9 mmol/L (5-15); BLOOD UREA NITROGEN 4 mg/dL (7-18); CALCIUM 7.7 MG/DL (8.5-10.1); CARBON DIOXIDE 24 MMOL/L (21-32); CHLORIDE 113 MMOL/L (98-107); CREATININE 0.9 MG/DL (0.55-1.30); PHOSPHORUS 1.8 MG/DL (2.5-4.9); POTASSIUM 2.9 MMOL/L (3.5-5.1); SODIUM 146 MMOL/L (136-145)
[2018-12-19 07:22] LABS: BASOPHILS % (AUTO) 0.6 % (0.0-2.0); EOSINOPHILS % (AUTO) 0.8 % (0.0-3.0); HEMATOCRIT 36.8 % (42.0-52.0); HEMOGLOBIN 12.2 G/DL (14.2-18.0); LYMPHOCYTES % (AUTO) 16.6 % (20.0-45.0); MEAN CORPUSCULAR VOLUME 93 FL (80-99); MONOCYTES % (AUTO) 6.3 % (1.0-10.0); NEUTROPHILS % (AUTO) 75.8 % (45.0-75.0); PLATELET COUNT 179 K/UL (150-450); RED BLOOD COUNT 3.97 M/UL (4.70-6.10); RED CELL DISTRIBUTION WIDTH 12.1 % (11.6-14.8)
--- NOTE | 2018-12-19 07:30 | NUR ---
HAND-OFF: Report given to ANA PAULA Mayen.
[2018-12-19 07:42] LABS: ALANINE AMINOTRANSFERASE 20 U/L (12-78); ALBUMIN 2.6 G/DL (3.4-5.0); ALKALINE PHOSPHATASE 69 U/L (46-116); ASPARTATE AMINO TRANSFERASE 21 U/L (15-37); BILIRUBIN,DIRECT 0.1 MG/DL (0.0-0.3); BILIRUBIN,TOTAL 0.5 MG/DL (0.2-1.0)
[2018-12-19] MEDS: Spironolactone 50mg tab ORAL SCH (09:04)
--- NOTE | 2018-12-19 09:14 | NUR ---
RD ASSESSMENT & RECOMMENDATIONS SEE CARE ACTIVITY FOR COMPLETE ASSESSMENT DAILY ESTIMATED NEEDS: Needs based on DM/ 79.5kg abw 25-30 kcals/kg total kcals 1-1.2 g protein/kg 80-96 g total protein 25-30 mL/kg total fluid mLs NUTRITION DIAGNOSIS: *Altered nutrition related lab values R/T clinical condition as evidenced by elev Na(146), critically low K (2.3->2.9 improved), low phos (1.8) * Altered GI function R/T sigmoid volvulus as evidenced by + abdominal distention, s/p colonoscopy w/ finding of severe colonic dilation and ileus, status post decompression, almost 3600 mL of fluid was aspirated, diet advanced to full liquids. CURRENT DIET:FULL LIQUID PO DIET RECOMMENDATIONS: Advance diet per MD -> SOFT, LOW NA, CCHO MED ADDITIONAL RECOMMENDATIONS: * Calibrated bedscale wt for accurate CBW * Monitor lytes daily, replete as needed -> consistently low K and phos * Monitor PO tolerance and acceptance * A1C for eval of glycemic control - h/o DM
[2018-12-19] MEDS ORDERED: Potassium Phosphate 30 MM in NS 275 ML IV ONE (09:30)
--- NOTE | 2018-12-19 09:41 | General Progress Note ---
Assessment/Plan Problem List: (1) HTN (hypertension) ICD Codes: I10 - Essential (primary) hypertension SNOMED: 76573856 (2) Ileus ICD Codes: K56.7 - Ileus, unspecified SNOMED: 109675945 (3) Anemia ICD Codes: D64.9 - Anemia, unspecified SNOMED: 903693874 (4) Diabetes mellitus ICD Codes: E11.9 - Type 2 diabetes mellitus without complications SNOMED: 91954557 (5) Hypokalemia ICD Codes: E87.6 - Hypokalemia SNOMED: 80972765 Assessment/Plan replace K stool studies ordered increase aldactone to 100 advance diet fu surg recs Subjective ROS Limited/Unobtainable: No Allergies: Coded Allergies: No Known Allergies (Unverified , 04/22/17) Objective Last 24 Hour Vital Signs Date Time Temp Pulse Resp B/P (MAP) Pulse Ox O2 Delivery O2 Flow Rate FiO2 12/19/18 09:04 61 167/73 12/19/18 08:00 97.2 61 19 167/73 (104) 99 12/19/18 06:32 161/80 12/19/18 04:00 98.2 60 17 168/82 (110) 99 12/19/18 04:00 60 12/19/18 00:00 98.5 61 18 173/76 (108) 96 12/19/18 00:00 60 12/18/18 22:23 152/72 12/18/18 21:00 Room Air 12/18/18 20:00 60 12/18/18 20:00 98.5 60 18 168/71 (103) 100 12/18/18 18:45 154/75 (101) 12/18/18 18:18 173/81 12/18/18 16:00 60 12/18/18 16:00 98.8 61 19 173/81 (111) 99 12/18/18 13:22 161/77 12/18/18 12:00 60 12/18/18 12:00 98.0 60 18 161/77 (105) 97 Intake and Output 12/18/18 12/19/18 19:00 07:00 Intake Total 620 ml Output Total 401 ml Balance 620 ml -401 ml Intake Oral 620 ml Output Urine Total 400 ml Stool Total 1 ml # Voids 8 # Bowel Movements 3 1 Laboratory Tests 12/19/18 06:20: White Blood Count 7.0, Red Blood Count 3.97L, Hemoglobin 12.2L, Hematocrit 36.8L , Mean Corpuscular Volume 93, Mean Corpuscular Hemoglobin 30.6, Mean Corpuscular Hemoglobin Concent 33.1, Red Cell Distribution Width 12.1, Platelet Count 179, Mean Platelet Volume 6.3L, Neutrophils (%) (Auto) 75.8H, Lymphocytes (%) (Auto) 16.6L, Monocytes (%) (Auto) 6.3, Eosinophils (%) (Auto) 0.8, Basophils (%) (Auto) 0.6, Sodium Level 146H, Potassium Level 2.9L, Chloride Level 113H, Carbon Dioxide Level 24, Anion Gap 9, Blood Urea Nitrogen 4L, Creatinine 0.9, Estimat Glomerular Filtration Rate , Glucose Level 97, Uric Acid 3.6, Calcium Level 7.7L, Phosphorus Level 1.8L, Magnesium Level 1.9, Total Bilirubin 0.5, Direct Bilirubin 0.1, Aspartate Amino Transf (AST/SGOT) 21, Alanine Aminotransferase (ALT/SGPT) 20, Alkaline Phosphatase 69, C-Reactive Protein, Quantitative < 0.4, Pro-B-Type Natriuretic Peptide 2226H, Total Protein 6.1L, Albumin 2.6L Height (Feet): 5 Height (Inches): 11.00 Weight (Pounds): 181 General Appearance: no apparent distress EENT: normal ENT inspection Neck: supple Cardiovascular: normal rate Respiratory/Chest: decreased breath sounds Abdomen: soft, hypoactive bowel sounds, distended Extremities: non-tender Tavares Ortiz MD Dec 19, 2018 09:41
--- NOTE | 2018-12-19 09:43 | GI Progress Note ---
Assessment/Plan Problems: (1) HTN (hypertension) ICD Codes: I10 - Essential (primary) hypertension SNOMED: 57006647 (2) Ileus ICD Codes: K56.7 - Ileus, unspecified SNOMED: 551553680 (3) Anemia ICD Codes: D64.9 - Anemia, unspecified SNOMED: 440451140 (4) Diabetes mellitus ICD Codes: E11.9 - Type 2 diabetes mellitus without complications SNOMED: 80716891 (5) Hypokalemia ICD Codes: E87.6 - Hypokalemia SNOMED: 65765017 Assessment/Plan will add Asacol given path c/w colitis Objective Last 24 Hour Vital Signs Date Time Temp Pulse Resp B/P (MAP) Pulse Ox O2 Delivery O2 Flow Rate FiO2 12/19/18 09:04 61 167/73 12/19/18 08:00 97.2 61 19 167/73 (104) 99 12/19/18 06:32 161/80 12/19/18 04:00 98.2 60 17 168/82 (110) 99 12/19/18 04:00 60 12/19/18 00:00 98.5 61 18 173/76 (108) 96 12/19/18 00:00 60 12/18/18 22:23 152/72 12/18/18 21:00 Room Air 12/18/18 20:00 60 12/18/18 20:00 98.5 60 18 168/71 (103) 100 12/18/18 18:45 154/75 (101) 12/18/18 18:18 173/81 12/18/18 16:00 60 12/18/18 16:00 98.8 61 19 173/81 (111) 99 12/18/18 13:22 161/77 12/18/18 12:00 60 12/18/18 12:00 98.0 60 18 161/77 (105) 97 Intake and Output 12/18/18 12/19/18 19:00 07:00 Intake Total 620 ml Output Total 401 ml Balance 620 ml -401 ml Intake Oral 620 ml Output Urine Total 400 ml Stool Total 1 ml # Voids 8 # Bowel Movements 3 1 Laboratory Tests Test 12/19/18 06:20 White Blood Count 7.0 K/UL (4.8-10.8) Red Blood Count 3.97 M/UL (4.70-6.10) L Hemoglobin 12.2 G/DL (14.2-18.0) L Hematocrit 36.8 % (42.0-52.0) L Mean Corpuscular Volume 93 FL (80-99) Mean Corpuscular Hemoglobin 30.6 PG (27.0-31.0) Mean Corpuscular Hemoglobin Concent 33.1 G/DL (32.0-36.0) Red Cell Distribution Width 12.1 % (11.6-14.8) Platelet Count 179 K/UL (150-450) Mean Platelet Volume 6.3 FL (6.5-10.1) L Neutrophils (%) (Auto) 75.8 % (45.0-75.0) H Lymphocytes (%) (Auto) 16.6 % (20.0-45.0) L Monocytes (%) (Auto) 6.3 % (1.0-10.0) Eosinophils (%) (Auto) 0.8 % (0.0-3.0) Basophils (%) (Auto) 0.6 % (0.0-2.0) Sodium Level 146 MMOL/L (136-145) H Potassium Level 2.9 MMOL/L (3.5-5.1) L Chloride Level 113 MMOL/L (98-107) H Carbon Dioxide Level 24 MMOL/L (21-32) Anion Gap 9 mmol/L (5-15) Blood Urea Nitrogen 4 mg/dL (7-18) L Creatinine 0.9 MG/DL (0.55-1.30) Estimat Glomerular Filtration Rate mL/min (>60) Glucose Level 97 MG/DL (74-106) Uric Acid 3.6 MG/DL (2.6-7.2) Calcium Level 7.7 MG/DL (8.5-10.1) L Phosphorus Level 1.8 MG/DL (2.5-4.9) L Magnesium Level 1.9 MG/DL (1.8-2.4) Total Bilirubin 0.5 MG/DL (0.2-1.0) Direct Bilirubin 0.1 MG/DL (0.0-0.3) Aspartate Amino Transf (AST/SGOT) 21 U/L (15-37) Alanine Aminotransferase (ALT/SGPT) 20 U/L (12-78) Alkaline Phosphatase 69 U/L (46-116) C-Reactive Protein, Quantitative < 0.4 mg/dL (0.00-0.90) Pro-B-Type Natriuretic Peptide 2226 pg/mL (0-125) H Total Protein 6.1 G/DL (6.4-8.2) L Albumin 2.6 G/DL (3.4-5.0) L Height (Feet): 5 Height (Inches): 11.00 Weight (Pounds): 181 Tavares Ortiz MD Dec 19, 2018 09:43
[2018-12-19] MEDS: Cefepime HCl 1 GM in D5W 55 ML IVPB SCH (11:20)
--- NOTE | 2018-12-19 11:40 | NUR ---
NURSE NOTES: PICC line dressing has been changed.
[2018-12-19] MEDS: Mesalamine 400mg cap ORAL SCH ×2 (12:40→17:27)
--- NOTE | 2018-12-19 13:39 | Nephrology Progress Note ---
Assessment/Plan Problem List: (1) Hypokalemia Assessment: persistant (2) UTI (urinary tract infection) (3) HTN (hypertension) (4) Ileus Assessment Low K Volvolus Anemia hypothyroid HTN BPH Dementia DM Plan Per GI adjust BP meds ? Trial of Somatostatin ? K supplement IV and PO again today PO Aldactone increase dose Hydralazine for BP add Reglan change Rocephin to Cefepime, Pseudomonas UTI TSH wnl clear liquids IV hydrate discussed with RN Subjective ROS Limited/Unobtainable: No Constitutional: Reports: other - continues with diarrhea Objective Objective Last 24 Hour Vital Signs Date Time Temp Pulse Resp B/P (MAP) Pulse Ox O2 Delivery O2 Flow Rate FiO2 12/19/18 12:00 97.6 61 18 154/70 (98) 99 12/19/18 09:04 61 167/73 12/19/18 09:00 Room Air 12/19/18 09:00 60 12/19/18 08:00 97.2 61 19 167/73 (104) 99 12/19/18 06:32 161/80 12/19/18 04:00 98.2 60 17 168/82 (110) 99 12/19/18 04:00 60 12/19/18 00:00 98.5 61 18 173/76 (108) 96 12/19/18 00:00 60 12/18/18 22:23 152/72 12/18/18 21:00 Room Air 12/18/18 20:00 60 12/18/18 20:00 98.5 60 18 168/71 (103) 100 12/18/18 18:45 154/75 (101) 12/18/18 18:18 173/81 12/18/18 16:00 60 12/18/18 16:00 98.8 61 19 173/81 (111) 99 Intake and Output 12/18/18 12/19/18 18:59 06:59 Intake Total 620 ml Output Total 401 ml Balance 620 ml -401 ml Intake Oral 620 ml Output Urine Total 400 ml Stool Total 1 ml # Voids 8 # Bowel Movements 3 1 Laboratory Tests 12/19/18 06:20: White Blood Count 7.0, Red Blood Count 3.97L, Hemoglobin 12.2L, Hematocrit 36.8L , Mean Corpuscular Volume 93, Mean Corpuscular Hemoglobin 30.6, Mean Corpuscular Hemoglobin Concent 33.1, Red Cell Distribution Width 12.1, Platelet Count 179, Mean Platelet Volume 6.3L, Neutrophils (%) (Auto) 75.8H, Lymphocytes (%) (Auto) 16.6L, Monocytes (%) (Auto) 6.3, Eosinophils (%) (Auto) 0.8, Basophils (%) (Auto) 0.6, Sodium Level 146H, Potassium Level 2.9L, Chloride Level 113H, Carbon Dioxide Level 24, Anion Gap 9, Blood Urea Nitrogen 4L, Creatinine 0.9, Estimat Glomerular Filtration Rate , Glucose Level 97, Uric Acid 3.6, Calcium Level 7.7L, Phosphorus Level 1.8L, Magnesium Level 1.9, Total Bilirubin 0.5, Direct Bilirubin 0.1, Aspartate Amino Transf (AST/SGOT) 21, Alanine Aminotransferase (ALT/SGPT) 20, Alkaline Phosphatase 69, C-Reactive Protein, Quantitative < 0.4, Pro-B-Type Natriuretic Peptide 2226H, Total Protein 6.1L, Albumin 2.6L Height (Feet): 5 Height (Inches): 11.00 Weight (Pounds): 181 General Appearance: no apparent distress Cardiovascular: normal rate Respiratory/Chest: decreased breath sounds Abdomen: distended Objective no change Herve Marshall MD Dec 19, 2018 13:39
--- NOTE | 2018-12-19 16:07 | NUR ---
PT Note PT jessi completed, treatment initiated. Patient is cooperative. Patient can benefit from PT services to increase his muscle strength and balance to improve his functional mobility and gait. Addendum: 12/19/18 at 1608 by YAMILE MORSE PT Amended: Links added.
--- NOTE | 2018-12-19 16:49 | Surgery Progress Note ---
Surgery Progress Note Subjective Additional Comments no acute events. states he is comfortable. tolerating diet. passing flatus. labs noted. Objective Last 24 Hour Vital Signs Date Time Temp Pulse Resp B/P (MAP) Pulse Ox O2 Delivery O2 Flow Rate FiO2 12/19/18 16:29 182/79 12/19/18 16:00 60 12/19/18 16:00 97.2 61 21 182/79 (113) 100 12/19/18 14:14 154/70 12/19/18 12:00 60 12/19/18 12:00 97.6 61 18 154/70 (98) 99 12/19/18 09:04 61 167/73 12/19/18 09:00 Room Air 12/19/18 09:00 60 12/19/18 08:00 97.2 61 19 167/73 (104) 99 12/19/18 06:32 161/80 12/19/18 04:00 98.2 60 17 168/82 (110) 99 12/19/18 04:00 60 12/19/18 00:00 98.5 61 18 173/76 (108) 96 12/19/18 00:00 60 12/18/18 22:23 152/72 12/18/18 21:00 Room Air 12/18/18 20:00 60 12/18/18 20:00 98.5 60 18 168/71 (103) 100 12/18/18 18:45 154/75 (101) 12/18/18 18:18 173/81 I&O Intake and Output 12/18/18 12/19/18 18:59 06:59 Intake Total 620 ml Output Total 401 ml Balance 620 ml -401 ml Intake Oral 620 ml Output Urine Total 400 ml Stool Total 1 ml # Voids 8 # Bowel Movements 3 1 Drains: none Cardiovascular: RSR Respiratory: clear Abdomen: soft, distended, non-tender, decreased bowel sounds Extremities: no tenderness, no cyanosis Laboratory Tests Test 12/19/18 06:20 White Blood Count 7.0 K/UL (4.8-10.8) Red Blood Count 3.97 M/UL (4.70-6.10) L Hemoglobin 12.2 G/DL (14.2-18.0) L Hematocrit 36.8 % (42.0-52.0) L Mean Corpuscular Volume 93 FL (80-99) Mean Corpuscular Hemoglobin 30.6 PG (27.0-31.0) Mean Corpuscular Hemoglobin Concent 33.1 G/DL (32.0-36.0) Red Cell Distribution Width 12.1 % (11.6-14.8) Platelet Count 179 K/UL (150-450) Mean Platelet Volume 6.3 FL (6.5-10.1) L Neutrophils (%) (Auto) 75.8 % (45.0-75.0) H Lymphocytes (%) (Auto) 16.6 % (20.0-45.0) L Monocytes (%) (Auto) 6.3 % (1.0-10.0) Eosinophils (%) (Auto) 0.8 % (0.0-3.0) Basophils (%) (Auto) 0.6 % (0.0-2.0) Sodium Level 146 MMOL/L (136-145) H Potassium Level 2.9 MMOL/L (3.5-5.1) L Chloride Level 113 MMOL/L (98-107) H Carbon Dioxide Level 24 MMOL/L (21-32) Anion Gap 9 mmol/L (5-15) Blood Urea Nitrogen 4 mg/dL (7-18) L Creatinine 0.9 MG/DL (0.55-1.30) Estimat Glomerular Filtration Rate mL/min (>60) Glucose Level 97 MG/DL (74-106) Uric Acid 3.6 MG/DL (2.6-7.2) Calcium Level 7.7 MG/DL (8.5-10.1) L Phosphorus Level 1.8 MG/DL (2.5-4.9) L Magnesium Level 1.9 MG/DL (1.8-2.4) Total Bilirubin 0.5 MG/DL (0.2-1.0) Direct Bilirubin 0.1 MG/DL (0.0-0.3) Aspartate Amino Transf (AST/SGOT) 21 U/L (15-37) Alanine Aminotransferase (ALT/SGPT) 20 U/L (12-78) Alkaline Phosphatase 69 U/L (46-116) C-Reactive Protein, Quantitative < 0.4 mg/dL (0.00-0.90) Pro-B-Type Natriuretic Peptide 2226 pg/mL (0-125) H Total Protein 6.1 G/DL (6.4-8.2) L Albumin 2.6 G/DL (3.4-5.0) L Plan Problems: (1) Ileus (2) Sigmoid volvulus Assessment & Plan: 78 year old male with concerns of sigmoid volvulus. afebrile, HD stable, abnormal electrolytes, distended, tympanic, no abd pain. states he is having flatus now. pending final results of barium enema but from report likely has colonic ileus does not seem to clinically have sigmoid volvulus and CT reviewed and more consistent with ileus. Remains very distended, tympanic, non tender. afebrile, HD stable, no leukocytosis hypo K okay for diet iv fluids replace electrolytes trend labs will follow with serial exams given colonoscopy findings, exam, kub results, labs, and clinical course there is consideration for colectomy. I discussed this option with patient. he states he needs to talk with his family first. had not talked to family yet. spoke with patient today. states he does not want surgery. Chava Smith Dec 19, 2018 16:49
[2018-12-19] MEDS ORDERED: Spironolactone 50mg tab ORAL SCH (18:00)
--- NOTE | 2018-12-19 19:00 | Geriatric Medicine Prog Note ---
DATE: 12/19/2018 SUBJECTIVE: The patient feels comfortable today. awaiting_ 24-hour urine collection. OBJECTIVE: VITAL SIGNS: Blood pressure 134/76, pulse 70, respiratory rate 18,T98 RESP:Clear,CVS-Regular. INV: potassium 3.2. ASSESSMENT: Hypokalemia __improved.R/O MN vs carcinoid_ syndrome. PLAN: A 24-hour urine for 5-HIAA and metanephrines. Also, hemoglobin A1c TSH and Prolactin level Nicholas Thakkar M.D. DR: ETIENNE JOB#: [id number] CC: MARKUS
--- NOTE | 2018-12-19 19:14 | General Progress Note ---
Assessment/Plan Problem List: (1) Hypokalemia ICD Codes: E87.6 - Hypokalemia SNOMED: 83754566 (2) Ileus ICD Codes: K56.7 - Ileus, unspecified SNOMED: 146443999 (3) Gastroparesis ICD Codes: K31.84 - Gastroparesis SNOMED: 750907367 (4) Sigmoid volvulus ICD Codes: K56.2 - Volvulus SNOMED: 141985869 (5) HTN (hypertension) ICD Codes: I10 - Essential (primary) hypertension SNOMED: 18025795 Status: progressing Assessment/Plan hypokalemia is improving abdomen is still distended dementia still distended abdomin sigmoid volvulus elevated bp is improved poor historian Subjective ROS Limited/Unobtainable: Yes Allergies: Coded Allergies: No Known Allergies (Unverified , 04/22/17) Objective Last 24 Hour Vital Signs Date Time Temp Pulse Resp B/P (MAP) Pulse Ox O2 Delivery O2 Flow Rate FiO2 12/19/18 17:38 155/105 (122) 12/19/18 16:29 182/79 12/19/18 16:00 60 12/19/18 16:00 97.2 61 21 182/79 (113) 100 12/19/18 14:14 154/70 12/19/18 12:00 60 12/19/18 12:00 97.6 61 18 154/70 (98) 99 12/19/18 09:04 61 167/73 12/19/18 09:00 Room Air 12/19/18 09:00 60 12/19/18 08:00 97.2 61 19 167/73 (104) 99 12/19/18 06:32 161/80 12/19/18 04:00 98.2 60 17 168/82 (110) 99 12/19/18 04:00 60 12/19/18 00:00 98.5 61 18 173/76 (108) 96 12/19/18 00:00 60 12/18/18 22:23 152/72 12/18/18 21:00 Room Air 12/18/18 20:00 60 12/18/18 20:00 98.5 60 18 168/71 (103) 100 Intake and Output 12/18/18 12/19/18 18:59 06:59 Intake Total 620 ml Output Total 401 ml Balance 620 ml -401 ml Intake Oral 620 ml Output Urine Total 400 ml Stool Total 1 ml # Voids 8 # Bowel Movements 3 1 Laboratory Tests 12/19/18 06:20: White Blood Count 7.0, Red Blood Count 3.97L, Hemoglobin 12.2L, Hematocrit 36.8L , Mean Corpuscular Volume 93, Mean Corpuscular Hemoglobin 30.6, Mean Corpuscular Hemoglobin Concent 33.1, Red Cell Distribution Width 12.1, Platelet Count 179, Mean Platelet Volume 6.3L, Neutrophils (%) (Auto) 75.8H, Lymphocytes (%) (Auto) 16.6L, Monocytes (%) (Auto) 6.3, Eosinophils (%) (Auto) 0.8, Basophils (%) (Auto) 0.6, Sodium Level 146H, Potassium Level 2.9L, Chloride Level 113H, Carbon Dioxide Level 24, Anion Gap 9, Blood Urea Nitrogen 4L, Creatinine 0.9, Estimat Glomerular Filtration Rate , Glucose Level 97, Uric Acid 3.6, Calcium Level 7.7L, Phosphorus Level 1.8L, Magnesium Level 1.9, Total Bilirubin 0.5, Direct Bilirubin 0.1, Aspartate Amino Transf (AST/SGOT) 21, Alanine Aminotransferase (ALT/SGPT) 20, Alkaline Phosphatase 69, C-Reactive Protein, Quantitative < 0.4, Pro-B-Type Natriuretic Peptide 2226H, Total Protein 6.1L, Albumin 2.6L Height (Feet): 5 Height (Inches): 11.00 Weight (Pounds): 181 Abdomen: distended Jose Francisco Chand MD Dec 19, 2018 19:14
--- NOTE | 2018-12-19 19:15 | NUR ---
NURSE NOTES: Received pt. and report from ANA PAULA Mayen. Observe pt. resting in bed with both eyes open and watching television. color television console monitor is in placed, PICC line is intact, asymptomatic, and patent. Bed is in the lowest position and locked, call light within reach. No signs and symptoms of acute distress noted at this time. Will continue plan of care.
--- NOTE | 2018-12-19 19:25 | NUR ---
HAND-OFF: Report given to ANA PAULA De La Torre.
[2018-12-19] MEDS: Dyna-Hex 2% Top Sol 2oz TOPIC SCH (20:17)
[2018-12-20] VITALS: BP 168/82
[2018-12-20] MEDS: Cefepime HCl 1 GM in D5W 55 ML IVPB SCH ×2 (00:08→12:40)
[2018-12-20] MEDS: Octreotide Acetate 500 MCG in Sodium Chloride 499 ML IV SCH ×2 (00:50→09:51)
[2018-12-20 04:00] VITALS: BP 172/79
[2018-12-20 05:00] LABS: PHOSPHORUS 1.9 MG/DL (2.5-4.9)
[2018-12-20 05:04] LABS: ALANINE AMINOTRANSFERASE 27 U/L (12-78); ALBUMIN 2.7 G/DL (3.4-5.0); ALBUMIN/GLOBULIN RATIO 0.7 (1.0-2.7); ALKALINE PHOSPHATASE 68 U/L (46-116); ANION GAP 8 mmol/L (5-15); ASPARTATE AMINO TRANSFERASE 20 U/L (15-37); BILIRUBIN,TOTAL 0.4 MG/DL (0.2-1.0); BLOOD UREA NITROGEN 4 mg/dL (7-18); CALCIUM 7.9 MG/DL (8.5-10.1); CARBON DIOXIDE 27 MMOL/L (21-32); CHLORIDE 112 MMOL/L (98-107); POTASSIUM 3.9 MMOL/L (3.5-5.1); SODIUM 146 MMOL/L (136-145)
[2018-12-20 05:10] LABS: BASOPHILS % (AUTO) 0.4 % (0.0-2.0); EOSINOPHILS % (AUTO) 0.8 % (0.0-3.0); HEMATOCRIT 39.5 % (42.0-52.0); LYMPHOCYTES % (AUTO) 17.1 % (20.0-45.0); MEAN CORPUSCULAR VOLUME 92 FL (80-99); MONOCYTES % (AUTO) 6.9 % (1.0-10.0); NEUTROPHILS % (AUTO) 74.8 % (45.0-75.0); PLATELET COUNT 211 K/UL (150-450); RED BLOOD COUNT 4.29 M/UL (4.70-6.10); RED CELL DISTRIBUTION WIDTH 12.3 % (11.6-14.8); WHITE BLOOD COUNT 8.6 K/UL (4.8-10.8)
[2018-12-20] MEDS: HydrALAZINE 25mg tab ORAL SCH ×4 (05:51→21:40)
[2018-12-20] MEDS: NovoLOG Insulin Flexpen SUBQ SCH ×4 (06:30→21:00)
[2018-12-20 08:00] VITALS: BP 150/68
--- NOTE | 2018-12-20 08:05 | NUR ---
NURSE NOTES: Received report from ANA PAULA Pepe. Patient in bed resting, no active s/s cardiac, respiratory distress noticed at this time, denies pain at this time, AOx3, V-paced with HR 72. patient on room air. Endorsed PICC line dressing changed on 12/19/18. PICC line on right upper arm double lumen. Bed in lowest position, side rails upx3, call light within reach. Will continue to monitor.
--- NOTE | 2018-12-20 08:30 | NUR ---
HAND-OFF: Report given to ANA PAULA Wesley. Pt. is in stable condition.
--- NOTE | 2018-12-20 08:50 | General Progress Note ---
Assessment/Plan Problem List: (1) HTN (hypertension) ICD Codes: I10 - Essential (primary) hypertension SNOMED: 30360280 (2) Ileus ICD Codes: K56.7 - Ileus, unspecified SNOMED: 580036080 (3) Anemia ICD Codes: D64.9 - Anemia, unspecified SNOMED: 091089668 (4) Diabetes mellitus ICD Codes: E11.9 - Type 2 diabetes mellitus without complications SNOMED: 55775587 (5) Hypokalemia ICD Codes: E87.6 - Hypokalemia SNOMED: 23097533 Assessment/Plan replace K stool studies ordered increase aldactone to 100 advance diet addede mesalamine yesterday K now much better abd exam is much better recommending holding surg for now will fu Subjective ROS Limited/Unobtainable: Yes Allergies: Coded Allergies: No Known Allergies (Unverified , 04/22/17) Objective Last 24 Hour Vital Signs Date Time Temp Pulse Resp B/P (MAP) Pulse Ox O2 Delivery O2 Flow Rate FiO2 12/20/18 05:51 174/80 12/20/18 04:00 60 12/20/18 04:00 98.0 72 18 172/79 (110) 100 12/20/18 00:00 98.5 61 20 168/82 (110) 97 12/20/18 00:00 60 12/19/18 21:32 173/78 12/19/18 21:00 Room Air 12/19/18 20:00 99.3 64 20 158/69 (98) 96 12/19/18 20:00 60 12/19/18 17:38 155/105 (122) 12/19/18 16:29 182/79 12/19/18 16:00 60 12/19/18 16:00 97.2 61 21 182/79 (113) 100 12/19/18 14:14 154/70 12/19/18 12:00 60 12/19/18 12:00 97.6 61 18 154/70 (98) 99 12/19/18 09:04 61 167/73 12/19/18 09:00 Room Air 12/19/18 09:00 60 Intake and Output 12/19/18 12/20/18 19:00 07:00 Intake Total 920 ml 320 ml Output Total 5491 ml Balance -4571 ml 320 ml Intake Oral 620 ml 320 ml IV Total 300 ml Output Urine Total 1040 ml Stool Total 1 ml Emesis 200 ml Other 4250 ml # Voids 8 1 # Bowel Movements 2 2 Laboratory Tests 12/20/18 04:00: White Blood Count 8.6, Red Blood Count 4.29L, Hemoglobin 13.0L, Hematocrit 39.5L , Mean Corpuscular Volume 92, Mean Corpuscular Hemoglobin 30.2, Mean Corpuscular Hemoglobin Concent 32.8, Red Cell Distribution Width 12.3, Platelet Count 211, Mean Platelet Volume 6.7, Neutrophils (%) (Auto) 74.8, Lymphocytes (% ) (Auto) 17.1L, Monocytes (%) (Auto) 6.9, Eosinophils (%) (Auto) 0.8, Basophils (%) (Auto) 0.4, Sodium Level 146H, Potassium Level 3.9, Chloride Level 112H, Carbon Dioxide Level 27, Anion Gap 8, Blood Urea Nitrogen 4L, Creatinine 1.0, Estimat Glomerular Filtration Rate , Glucose Level 89, Calcium Level 7.9L, Phosphorus Level 1.9L, Magnesium Level 1.7L, Total Bilirubin 0.4, Aspartate Amino Transf (AST/SGOT) 20, Alanine Aminotransferase (ALT/SGPT) 27, Alkaline Phosphatase 68, C-Reactive Protein, Quantitative < 0.4, Pro-B-Type Natriuretic Peptide 2130H, Total Protein 6.5, Albumin 2.7L, Globulin 3.8, Albumin/Globulin Ratio 0.7L, Vitamin B12 Level 537, Folate 15.1 Height (Feet): 5 Height (Inches): 11.00 Weight (Pounds): 181 General Appearance: alert EENT: normal ENT inspection Neck: supple Cardiovascular: normal rate Respiratory/Chest: decreased breath sounds Abdomen: normal bowel sounds, non tender, soft Extremities: non-tender Tavares Ortiz MD Dec 20, 2018 08:50
[2018-12-20] MEDS: Spironolactone 50mg tab ORAL SCH ×2 (09:50→17:34)
[2018-12-20] MEDS: Mesalamine 400mg cap ORAL SCH ×4 (09:50→17:34)
[2018-12-20] MEDS ORDERED: Sodium Phosphate 30 MM in NS 275 ML IVPB ONE (10:30)
[2018-12-20 12:00] VITALS: BP 130/66
[2018-12-20] MEDS ORDERED: Tubing IV Secondary IV ONE (12:42)
--- NOTE | 2018-12-20 13:05 | Nephrology Progress Note ---
Assessment/Plan Problem List: (1) Hypokalemia Assessment: persistant (2) UTI (urinary tract infection) (3) HTN (hypertension) (4) Ileus Assessment Low K Volvolus Anemia hypothyroid HTN BPH Dementia DM Plan Per GI adjust BP meds Trial of Somatostatin and ASACOL K supplement I PO Aldactone increase dose Hydralazine for BP add Reglan change Rocephin to Cefepime, Pseudomonas UTI TSH wnl clear liquids IV hydrate discussed with RN Subjective ROS Limited/Unobtainable: No Constitutional: Reports: malaise, weakness Objective Objective Last 24 Hour Vital Signs Date Time Temp Pulse Resp B/P (MAP) Pulse Ox O2 Delivery O2 Flow Rate FiO2 12/20/18 09:50 61 150/68 12/20/18 09:00 Room Air 12/20/18 08:00 97.9 61 18 150/68 (95) 98 12/20/18 08:00 60 12/20/18 05:51 174/80 12/20/18 04:00 60 12/20/18 04:00 98.0 72 18 172/79 (110) 100 12/20/18 00:00 98.5 61 20 168/82 (110) 97 12/20/18 00:00 60 12/19/18 21:32 173/78 12/19/18 21:00 Room Air 12/19/18 20:00 99.3 64 20 158/69 (98) 96 12/19/18 20:00 60 12/19/18 17:38 155/105 (122) 12/19/18 16:29 182/79 12/19/18 16:00 60 12/19/18 16:00 97.2 61 21 182/79 (113) 100 12/19/18 14:14 154/70 Intake and Output 12/19/18 12/20/18 19:00 07:00 Intake Total 920 ml 320 ml Output Total 5491 ml Balance -4571 ml 320 ml Intake Oral 620 ml 320 ml IV Total 300 ml Output Urine Total 1040 ml Stool Total 1 ml Emesis 200 ml Other 4250 ml # Voids 8 1 # Bowel Movements 2 2 Laboratory Tests 12/20/18 04:00: White Blood Count 8.6, Red Blood Count 4.29L, Hemoglobin 13.0L, Hematocrit 39.5L , Mean Corpuscular Volume 92, Mean Corpuscular Hemoglobin 30.2, Mean Corpuscular Hemoglobin Concent 32.8, Red Cell Distribution Width 12.3, Platelet Count 211, Mean Platelet Volume 6.7, Neutrophils (%) (Auto) 74.8, Lymphocytes (% ) (Auto) 17.1L, Monocytes (%) (Auto) 6.9, Eosinophils (%) (Auto) 0.8, Basophils (%) (Auto) 0.4, Sodium Level 146H, Potassium Level 3.9, Chloride Level 112H, Carbon Dioxide Level 27, Anion Gap 8, Blood Urea Nitrogen 4L, Creatinine 1.0, Estimat Glomerular Filtration Rate , Glucose Level 89, Calcium Level 7.9L, Phosphorus Level 1.9L, Magnesium Level 1.7L, Total Bilirubin 0.4, Aspartate Amino Transf (AST/SGOT) 20, Alanine Aminotransferase (ALT/SGPT) 27, Alkaline Phosphatase 68, C-Reactive Protein, Quantitative < 0.4, Pro-B-Type Natriuretic Peptide 2130H, Total Protein 6.5, Albumin 2.7L, Globulin 3.8, Albumin/Globulin Ratio 0.7L, Vitamin B12 Level 537, Folate 15.1 Height (Feet): 5 Height (Inches): 11.00 Weight (Pounds): 181 Objective no change Herve Marshall MD Dec 20, 2018 13:05
--- NOTE | 2018-12-20 13:14 | Surgery Progress Note ---
Surgery Progress Note Subjective Additional Comments labs much improved. exam improved. overall improved. no complaints Objective Last 24 Hour Vital Signs Date Time Temp Pulse Resp B/P (MAP) Pulse Ox O2 Delivery O2 Flow Rate FiO2 12/20/18 09:50 61 150/68 12/20/18 09:00 Room Air 12/20/18 08:00 97.9 61 18 150/68 (95) 98 12/20/18 08:00 60 12/20/18 05:51 174/80 12/20/18 04:00 60 12/20/18 04:00 98.0 72 18 172/79 (110) 100 12/20/18 00:00 98.5 61 20 168/82 (110) 97 12/20/18 00:00 60 12/19/18 21:32 173/78 12/19/18 21:00 Room Air 12/19/18 20:00 99.3 64 20 158/69 (98) 96 12/19/18 20:00 60 12/19/18 17:38 155/105 (122) 12/19/18 16:29 182/79 12/19/18 16:00 60 12/19/18 16:00 97.2 61 21 182/79 (113) 100 12/19/18 14:14 154/70 I&O Intake and Output 12/19/18 12/20/18 19:00 07:00 Intake Total 920 ml 320 ml Output Total 5491 ml Balance -4571 ml 320 ml Intake Oral 620 ml 320 ml IV Total 300 ml Output Urine Total 1040 ml Stool Total 1 ml Emesis 200 ml Other 4250 ml # Voids 8 1 # Bowel Movements 2 2 Drains: none Cardiovascular: RSR Respiratory: clear Abdomen: soft, distended, non-tender, present bowel sounds, decreased bowel sounds Extremities: no tenderness, no cyanosis Laboratory Tests Test 12/20/18 04:00 White Blood Count 8.6 K/UL (4.8-10.8) Red Blood Count 4.29 M/UL (4.70-6.10) L Hemoglobin 13.0 G/DL (14.2-18.0) L Hematocrit 39.5 % (42.0-52.0) L Mean Corpuscular Volume 92 FL (80-99) Mean Corpuscular Hemoglobin 30.2 PG (27.0-31.0) Mean Corpuscular Hemoglobin Concent 32.8 G/DL (32.0-36.0) Red Cell Distribution Width 12.3 % (11.6-14.8) Platelet Count 211 K/UL (150-450) Mean Platelet Volume 6.7 FL (6.5-10.1) Neutrophils (%) (Auto) 74.8 % (45.0-75.0) Lymphocytes (%) (Auto) 17.1 % (20.0-45.0) L Monocytes (%) (Auto) 6.9 % (1.0-10.0) Eosinophils (%) (Auto) 0.8 % (0.0-3.0) Basophils (%) (Auto) 0.4 % (0.0-2.0) Sodium Level 146 MMOL/L (136-145) H Potassium Level 3.9 MMOL/L (3.5-5.1) Chloride Level 112 MMOL/L (98-107) H Carbon Dioxide Level 27 MMOL/L (21-32) Anion Gap 8 mmol/L (5-15) Blood Urea Nitrogen 4 mg/dL (7-18) L Creatinine 1.0 MG/DL (0.55-1.30) Estimat Glomerular Filtration Rate mL/min (>60) Glucose Level 89 MG/DL (74-106) Calcium Level 7.9 MG/DL (8.5-10.1) L Phosphorus Level 1.9 MG/DL (2.5-4.9) L Magnesium Level 1.7 MG/DL (1.8-2.4) L Total Bilirubin 0.4 MG/DL (0.2-1.0) Aspartate Amino Transf (AST/SGOT) 20 U/L (15-37) Alanine Aminotransferase (ALT/SGPT) 27 U/L (12-78) Alkaline Phosphatase 68 U/L (46-116) C-Reactive Protein, Quantitative < 0.4 mg/dL (0.00-0.90) Pro-B-Type Natriuretic Peptide 2130 pg/mL (0-125) H Total Protein 6.5 G/DL (6.4-8.2) Albumin 2.7 G/DL (3.4-5.0) L Globulin 3.8 g/dL Albumin/Globulin Ratio 0.7 (1.0-2.7) L Vitamin B12 Level 537 PG/ML (193-986) Folate 15.1 NG/ML (8.6-58.9) Plan Problems: (1) Ileus (2) Sigmoid volvulus Assessment & Plan: 78 year old male with concerns of sigmoid volvulus. afebrile, HD stable, abnormal electrolytes, distended, tympanic, no abd pain. states he is having flatus now. pending final results of barium enema but from report likely has colonic ileus does not seem to clinically have sigmoid volvulus and CT reviewed and more consistent with ileus. Remains very distended, tympanic, non tender. afebrile, HD stable, no leukocytosis hypo K okay for diet iv fluids replace electrolytes trend labs will follow with serial exams given colonoscopy findings, exam, kub results, labs, and clinical course there is consideration for colectomy. I discussed this option with patient. he states he needs to talk with his family first. had not talked to family yet. spoke with patient today. states he does not want surgery. discharge planning Chava Smith Dec 20, 2018 13:14
--- NOTE | 2018-12-20 15:45 | NUR ---
CASE MANAGEMENT: REVIEW 12/20/2018 SI: ILEUS . SIGMOID VOLVULUS . HYPOKALEMIA COLONOSCOPY w/BIOPSY 12/15 T 99.2 HR 60 RR 18 B/P 130/66 SATS 99% ON RA NA 146 CL 112 BUN 4 CA 7.9 PHOS 1.9 MG 1.7 BNP 2130 IS: ALDACTONE PO BID K-DUR PO TID OCTREOTIDE IV GTT CEFEPIME IV Q12HR TELEMETRY UNIT STATUS DCP: PATIENT IS FROM [facility]
[2018-12-20 16:00] VITALS: BP 150/78
--- NOTE | 2018-12-20 19:30 | NUR ---
NURSE NOTES: Report received from Sydney Dean RN. Pt is resting in bed in stable condition. Pt is awake, alert, and oriented x3 with some intermittent confusion noted. Pt is on room air and breathing is even and unlabored. No acute distress noted. IV site is R upper arm PICC line and is running Sandostatin at 50cc/hr per orders. PICC line and dressing is patent and intact. Bed is placed in lowest position with brake engaged, side rails up x3, and bed alarm on. Call light and side table placed within reach. Will continue to monitor.
--- NOTE | 2018-12-20 19:34 | NUR ---
HAND-OFF: Report given to ANA PAULA Christie.
--- NOTE | 2018-12-20 19:56 | NUR ---
NURSE NOTES: Spoke with Jarod in pharmacy to report that the Sandostatin from earlier is not finished/still running. Per Jarod, hang bag scheduled for 1900 at 0000 on 12/21/18 and then pharmacy will retime the next scheduled dose.
[2018-12-20 20:00] VITALS: BP 160/86
[2018-12-20] MEDS: Dyna-Hex 2% Top Sol 2oz TOPIC SCH (21:37)
--- NOTE | 2018-12-20 21:54 | General Progress Note ---
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 dementia still distended abdomin reequires high dose of kcl elevated bp Subjective ROS Limited/Unobtainable: Yes Allergies: Coded Allergies: No Known Allergies (Unverified , 04/22/17) Objective Last 24 Hour Vital Signs Date Time Temp Pulse Resp B/P (MAP) Pulse Ox O2 Delivery O2 Flow Rate FiO2 12/20/18 21:40 160/86 12/20/18 16:00 98.7 63 18 150/78 (102) 99 12/20/18 16:00 60 12/20/18 14:00 130/66 12/20/18 12:00 61 12/20/18 12:00 99.2 60 18 130/66 (87) 99 12/20/18 09:50 61 150/68 12/20/18 09:00 Room Air 12/20/18 08:00 97.9 61 18 150/68 (95) 98 12/20/18 08:00 60 12/20/18 05:51 174/80 12/20/18 04:00 60 12/20/18 04:00 98.0 72 18 172/79 (110) 100 12/20/18 00:00 98.5 61 20 168/82 (110) 97 12/20/18 00:00 60 Intake and Output 12/19/18 12/20/18 18:59 06:59 Intake Total 920 ml 320 ml Output Total 5491 ml Balance -4571 ml 320 ml Intake Oral 620 ml 320 ml IV Total 300 ml Output Urine Total 1040 ml Stool Total 1 ml Emesis 200 ml Other 4250 ml # Voids 8 1 # Bowel Movements 2 2 Laboratory Tests 12/20/18 04:00: White Blood Count 8.6, Red Blood Count 4.29L, Hemoglobin 13.0L, Hematocrit 39.5L , Mean Corpuscular Volume 92, Mean Corpuscular Hemoglobin 30.2, Mean Corpuscular Hemoglobin Concent 32.8, Red Cell Distribution Width 12.3, Platelet Count 211, Mean Platelet Volume 6.7, Neutrophils (%) (Auto) 74.8, Lymphocytes (% ) (Auto) 17.1L, Monocytes (%) (Auto) 6.9, Eosinophils (%) (Auto) 0.8, Basophils (%) (Auto) 0.4, Sodium Level 146H, Potassium Level 3.9, Chloride Level 112H, Carbon Dioxide Level 27, Anion Gap 8, Blood Urea Nitrogen 4L, Creatinine 1.0, Estimat Glomerular Filtration Rate , Glucose Level 89, Calcium Level 7.9L, Phosphorus Level 1.9L, Magnesium Level 1.7L, Total Bilirubin 0.4, Aspartate Amino Transf (AST/SGOT) 20, Alanine Aminotransferase (ALT/SGPT) 27, Alkaline Phosphatase 68, C-Reactive Protein, Quantitative < 0.4, Pro-B-Type Natriuretic Peptide 2130H, Total Protein 6.5, Albumin 2.7L, Globulin 3.8, Albumin/Globulin Ratio 0.7L, Vitamin B12 Level 537, Folate 15.1 Height (Feet): 5 Height (Inches): 11.00 Weight (Pounds): 181 Neck: supple Cardiovascular: normal rate Respiratory/Chest: lungs clear Abdomen: soft, distended Jose Francisco Chand MD Dec 20, 2018 21:54
[2018-12-21] VITALS: BP 141/66
[2018-12-21] MEDS: Octreotide Acetate 500 MCG in Sodium Chloride 499 ML IV SCH ×4 (00:06→21:33)
[2018-12-21 04:00] VITALS: BP_SYST 141; BP_SYST 146; BP_DIAS 68; BP_DIAS 77
[2018-12-21] MEDS: HydrALAZINE 25mg tab ORAL SCH ×3 (06:00→21:33)
[2018-12-21] MEDS: NovoLOG Insulin Flexpen SUBQ SCH ×4 (06:17→21:00)
[2018-12-21 06:40] LABS: BASOPHILS % (AUTO) 0.4 % (0.0-2.0); EOSINOPHILS % (AUTO) 0.6 % (0.0-3.0); HEMATOCRIT 34.9 % (42.0-52.0); HEMOGLOBIN 11.5 G/DL (14.2-18.0); LYMPHOCYTES % (AUTO) 15.2 % (20.0-45.0); MEAN CORPUSCULAR VOLUME 93 FL (80-99); MONOCYTES % (AUTO) 5.4 % (1.0-10.0); NEUTROPHILS % (AUTO) 78.5 % (45.0-75.0); PLATELET COUNT 205 K/UL (150-450); RED BLOOD COUNT 3.76 M/UL (4.70-6.10); RED CELL DISTRIBUTION WIDTH 12.1 % (11.6-14.8); WHITE BLOOD COUNT 8.9 K/UL (4.8-10.8)
[2018-12-21 06:58] LABS: ALANINE AMINOTRANSFERASE 14 U/L (12-78); ALBUMIN 2.5 G/DL (3.4-5.0); ALBUMIN/GLOBULIN RATIO 0.7 (1.0-2.7); ALKALINE PHOSPHATASE 62 U/L (46-116); ANION GAP 12 mmol/L (5-15); ASPARTATE AMINO TRANSFERASE 15 U/L (15-37); BILIRUBIN,TOTAL 0.3 MG/DL (0.2-1.0); BLOOD UREA NITROGEN 11 mg/dL (7-18); CALCIUM 7.2 MG/DL (8.5-10.1); CARBON DIOXIDE 20 MMOL/L (21-32); CHLORIDE 113 MMOL/L (98-107); CREATININE 0.9 MG/DL (0.55-1.30); PHOSPHORUS 2.4 MG/DL (2.5-4.9); SODIUM 145 MMOL/L (136-145)
[2018-12-21 06:59] LABS: POTASSIUM 2.7 MMOL/L (3.5-5.1)
--- NOTE | 2018-12-21 07:00 | NUR ---
NURSE NOTES: Daxa from lab called to report critically low potassium of 2.7. Will endorse to AM shift.
--- NOTE | 2018-12-21 07:20 | NUR ---
HAND-OFF: Report given to Sydney Dean RN. Pt is sleeping in bed in stable condition. No acute distress noted. Endorsed low potassium result of 2.7 and to contact pharmacy to retime Octreotide Acetate for this AM. Endorsed all other plan of care.
--- NOTE | 2018-12-21 07:33 | NUR ---
NURSE NOTES: Received report from ANA PAULA Christie. Patient in bed resting, no active s/s cardiac, respiratory distress noticed at this time, denies pain at this time. Patient on room air, V-paced HR 60. Endorsed to call pharmacy when octreotide acetate done to adjust time. IV running at PICC line on right upper arm double lumen, asymptomatic, patent, intact. Bed in lowest position, side rails upx2, call light within reach. Will continue to monitor.
--- NOTE | 2018-12-21 07:39 | NUR ---
NURSE NOTES: Dr. Marshall reviewed K level 2.7 today, ordered 10 bags KCL 10 meq, order noted, acknowledged, carried out.
[2018-12-21 08:00] VITALS: BP 139/63
[2018-12-21] MEDS ORDERED: POTASSIUM CHLORIDE IV ONE (09:00)
[2018-12-21] MEDS ORDERED: SODIUM CHLORIDE IV ONE (09:00)
[2018-12-21] MEDS: Mesalamine 400mg cap ORAL SCH ×4 (09:00→18:00)
--- NOTE | 2018-12-21 10:30 | GI Progress Note ---
Assessment/Plan Problems: (1) Sigmoid volvulus ICD Codes: K56.2 - Volvulus SNOMED: 765830254 (2) Gastroparesis ICD Codes: K31.84 - Gastroparesis SNOMED: 681946487 (3) Ileus ICD Codes: K56.7 - Ileus, unspecified SNOMED: 590297034 (4) Anemia ICD Codes: D64.9 - Anemia, unspecified SNOMED: 506064254 (5) Diabetes mellitus ICD Codes: E11.9 - Type 2 diabetes mellitus without complications SNOMED: 52287273 Status: progressing Status Narrative Discussed with Dr. Ortiz Assessment/Plan Assessment - chronic abd distention - anemia - DM - Hypothyroid - severe hypokalemia - hx of carcinomas SUMMARY OF FINDINGS: 1. Incomplete colonoscopy examination. 2. An area of edema at about 30 cm from the anal verge causing a kind of colonic outlet obstruction, status post biopsy of this area. Also status post biopsy of the sigmoid colon with some inflammation. 3. Severe colonic dilation and ileus, status post decompression, almost 3600 mL of fluid was aspirated in this procedure. Biopsy shows mild active colitis RECOMMENDATIONS: PICC line placement replace K stool studies ordered increase Aldactone to 100 advance diet added mesalamine yesterday K now much better abd exam is much better recommending holding surg for now will fu The patient was seen and examined at bedside and all new and available data was reviewed in the patients chart. I agree with the above findings, impression and plan. (Patient seen earlier today. Signature stamp does not reflect patient encounter time.). - Tavares Ortiz MD Subjective Subjective Patient overall feels better Objective Last 24 Hour Vital Signs Date Time Temp Pulse Resp B/P (MAP) Pulse Ox O2 Delivery O2 Flow Rate FiO2 12/21/18 06:00 146/68 12/21/18 04:00 60 12/21/18 04:00 99.0 61 19 146/68 (94) 100 12/21/18 00:00 60 12/21/18 00:00 99.1 61 18 141/66 (91) 98 12/20/18 21:40 160/86 12/20/18 21:00 Room Air 12/20/18 20:00 60 12/20/18 20:00 99.0 61 18 160/86 (110) 99 12/20/18 16:00 98.7 63 18 150/78 (102) 99 12/20/18 16:00 60 12/20/18 14:00 130/66 12/20/18 12:00 61 12/20/18 12:00 99.2 60 18 130/66 (87) 99 Intake and Output 12/20/18 12/21/18 19:00 07:00 Intake Total 720 ml Balance 720 ml Intake Oral 720 ml # Voids 5 1 # Bowel Movements 1 Laboratory Tests Test 12/21/18 06:00 White Blood Count 8.9 K/UL (4.8-10.8) Red Blood Count 3.76 M/UL (4.70-6.10) L Hemoglobin 11.5 G/DL (14.2-18.0) L Hematocrit 34.9 % (42.0-52.0) L Mean Corpuscular Volume 93 FL (80-99) Mean Corpuscular Hemoglobin 30.7 PG (27.0-31.0) Mean Corpuscular Hemoglobin Concent 33.0 G/DL (32.0-36.0) Red Cell Distribution Width 12.1 % (11.6-14.8) Platelet Count 205 K/UL (150-450) Mean Platelet Volume 5.9 FL (6.5-10.1) L Neutrophils (%) (Auto) 78.5 % (45.0-75.0) H Lymphocytes (%) (Auto) 15.2 % (20.0-45.0) L Monocytes (%) (Auto) 5.4 % (1.0-10.0) Eosinophils (%) (Auto) 0.6 % (0.0-3.0) Basophils (%) (Auto) 0.4 % (0.0-2.0) Sodium Level 145 MMOL/L (136-145) Potassium Level 2.7 MMOL/L (3.5-5.1) *L Chloride Level 113 MMOL/L (98-107) H Carbon Dioxide Level 20 MMOL/L (21-32) L Anion Gap 12 mmol/L (5-15) Blood Urea Nitrogen 11 mg/dL (7-18) Creatinine 0.9 MG/DL (0.55-1.30) Estimat Glomerular Filtration Rate mL/min (>60) Glucose Level 96 MG/DL (74-106) Uric Acid 2.7 MG/DL (2.6-7.2) Calcium Level 7.2 MG/DL (8.5-10.1) L Phosphorus Level 2.4 MG/DL (2.5-4.9) L Magnesium Level 2.0 MG/DL (1.8-2.4) Total Bilirubin 0.3 MG/DL (0.2-1.0) Aspartate Amino Transf (AST/SGOT) 15 U/L (15-37) Alanine Aminotransferase (ALT/SGPT) 14 U/L (12-78) Alkaline Phosphatase 62 U/L (46-116) C-Reactive Protein, Quantitative < 0.4 mg/dL (0.00-0.90) Pro-B-Type Natriuretic Peptide 1170 pg/mL (0-125) H Total Protein 5.9 G/DL (6.4-8.2) L Albumin 2.5 G/DL (3.4-5.0) L Globulin 3.4 g/dL Albumin/Globulin Ratio 0.7 (1.0-2.7) L Height (Feet): 5 Height (Inches): 11.00 Weight (Pounds): 181 General Appearance: WD/WN, no apparent distress, alert Cardiovascular: normal rate Respiratory/Chest: normal breath sounds, no respiratory distress Abdominal Exam: normal bowel sounds, non tender, soft, distended - Abdomen is soft Extremities: normal range of motion, non-tender Cristina Galloway NP Dec 21, 2018 10:30
--- NOTE | 2018-12-21 11:47 | Nephrology Progress Note ---
Assessment/Plan Problem List: (1) Hypokalemia Assessment: persistant (2) UTI (urinary tract infection) (3) HTN (hypertension) (4) Ileus Assessment Low K Volvolus Anemia hypothyroid HTN BPH Dementia DM Plan Per GI- adjust BP meds Trial of Somatostatin and ASACOL K supplement IV and PO PO Aldactone increase dose Hydralazine for BP add Reglan change Rocephin to Cefepime, Pseudomonas UTI TSH wnl clear liquids IV hydrate discussed with RN Subjective ROS Limited/Unobtainable: No Constitutional: Reports: malaise Objective Objective Last 24 Hour Vital Signs Date Time Temp Pulse Resp B/P (MAP) Pulse Ox O2 Delivery O2 Flow Rate FiO2 12/21/18 09:00 60 139/63 12/21/18 09:00 Room Air 12/21/18 08:00 60 12/21/18 08:00 97.5 60 20 139/63 (88) 99 12/21/18 06:00 146/68 12/21/18 04:00 60 12/21/18 04:00 99.0 61 19 146/68 (94) 100 12/21/18 00:00 60 12/21/18 00:00 99.1 61 18 141/66 (91) 98 12/20/18 21:40 160/86 12/20/18 21:00 Room Air 12/20/18 20:00 60 12/20/18 20:00 99.0 61 18 160/86 (110) 99 12/20/18 16:00 98.7 63 18 150/78 (102) 99 12/20/18 16:00 60 12/20/18 14:00 130/66 12/20/18 12:00 61 12/20/18 12:00 99.2 60 18 130/66 (87) 99 Intake and Output 12/20/18 12/21/18 19:00 07:00 Intake Total 720 ml Balance 720 ml Intake Oral 720 ml # Voids 5 1 # Bowel Movements 1 Laboratory Tests 12/21/18 06:00: White Blood Count 8.9, Red Blood Count 3.76L, Hemoglobin 11.5L, Hematocrit 34.9L , Mean Corpuscular Volume 93, Mean Corpuscular Hemoglobin 30.7, Mean Corpuscular Hemoglobin Concent 33.0, Red Cell Distribution Width 12.1, Platelet Count 205, Mean Platelet Volume 5.9L, Neutrophils (%) (Auto) 78.5H, Lymphocytes (%) (Auto) 15.2L, Monocytes (%) (Auto) 5.4, Eosinophils (%) (Auto) 0.6, Basophils (%) (Auto) 0.4, Sodium Level 145, Potassium Level 2.7*L, Chloride Level 113H, Carbon Dioxide Level 20L, Anion Gap 12, Blood Urea Nitrogen 11, Creatinine 0.9, Estimat Glomerular Filtration Rate , Glucose Level 96, Uric Acid 2.7, Calcium Level 7.2L, Phosphorus Level 2.4L, Magnesium Level 2.0, Total Bilirubin 0.3, Aspartate Amino Transf (AST/SGOT) 15, Alanine Aminotransferase ( ALT/SGPT) 14, Alkaline Phosphatase 62, C-Reactive Protein, Quantitative < 0.4, Pro-B-Type Natriuretic Peptide 1170H, Total Protein 5.9L, Albumin 2.5L, Globulin 3.4, Albumin/Globulin Ratio 0.7L Height (Feet): 5 Height (Inches): 11.00 Weight (Pounds): 181 General Appearance: no apparent distress Cardiovascular: normal rate Respiratory/Chest: decreased breath sounds Abdomen: soft, distended Objective no change Herve Marshall MD Dec 21, 2018 11:47
[2018-12-21 12:00] VITALS: BP 164/78
--- NOTE | 2018-12-21 13:54 | Surgery Progress Note ---
Surgery Progress Note Subjective Additional Comments hypoK despite high dose KCL. exam with soft but distended abdomen. non tender. no complaints. says he is comfortable. Objective Last 24 Hour Vital Signs Date Time Temp Pulse Resp B/P (MAP) Pulse Ox O2 Delivery O2 Flow Rate FiO2 12/21/18 09:00 60 139/63 12/21/18 09:00 Room Air 12/21/18 08:00 60 12/21/18 08:00 97.5 60 20 139/63 (88) 99 12/21/18 06:00 146/68 12/21/18 04:00 60 12/21/18 04:00 99.0 61 19 146/68 (94) 100 12/21/18 00:00 60 12/21/18 00:00 99.1 61 18 141/66 (91) 98 12/20/18 21:40 160/86 12/20/18 21:00 Room Air 12/20/18 20:00 60 12/20/18 20:00 99.0 61 18 160/86 (110) 99 12/20/18 16:00 98.7 63 18 150/78 (102) 99 12/20/18 16:00 60 12/20/18 14:00 130/66 I&O Intake and Output 12/20/18 12/21/18 19:00 07:00 Intake Total 720 ml Balance 720 ml Intake Oral 720 ml # Voids 5 1 # Bowel Movements 1 Cardiovascular: RSR Respiratory: clear Abdomen: soft, distended, non-tender, decreased bowel sounds Extremities: no tenderness, no cyanosis Laboratory Tests Test 12/21/18 06:00 White Blood Count 8.9 K/UL (4.8-10.8) Red Blood Count 3.76 M/UL (4.70-6.10) L Hemoglobin 11.5 G/DL (14.2-18.0) L Hematocrit 34.9 % (42.0-52.0) L Mean Corpuscular Volume 93 FL (80-99) Mean Corpuscular Hemoglobin 30.7 PG (27.0-31.0) Mean Corpuscular Hemoglobin Concent 33.0 G/DL (32.0-36.0) Red Cell Distribution Width 12.1 % (11.6-14.8) Platelet Count 205 K/UL (150-450) Mean Platelet Volume 5.9 FL (6.5-10.1) L Neutrophils (%) (Auto) 78.5 % (45.0-75.0) H Lymphocytes (%) (Auto) 15.2 % (20.0-45.0) L Monocytes (%) (Auto) 5.4 % (1.0-10.0) Eosinophils (%) (Auto) 0.6 % (0.0-3.0) Basophils (%) (Auto) 0.4 % (0.0-2.0) Sodium Level 145 MMOL/L (136-145) Potassium Level 2.7 MMOL/L (3.5-5.1) *L Chloride Level 113 MMOL/L (98-107) H Carbon Dioxide Level 20 MMOL/L (21-32) L Anion Gap 12 mmol/L (5-15) Blood Urea Nitrogen 11 mg/dL (7-18) Creatinine 0.9 MG/DL (0.55-1.30) Estimat Glomerular Filtration Rate mL/min (>60) Glucose Level 96 MG/DL (74-106) Uric Acid 2.7 MG/DL (2.6-7.2) Calcium Level 7.2 MG/DL (8.5-10.1) L Phosphorus Level 2.4 MG/DL (2.5-4.9) L Magnesium Level 2.0 MG/DL (1.8-2.4) Total Bilirubin 0.3 MG/DL (0.2-1.0) Aspartate Amino Transf (AST/SGOT) 15 U/L (15-37) Alanine Aminotransferase (ALT/SGPT) 14 U/L (12-78) Alkaline Phosphatase 62 U/L (46-116) C-Reactive Protein, Quantitative < 0.4 mg/dL (0.00-0.90) Pro-B-Type Natriuretic Peptide 1170 pg/mL (0-125) H Total Protein 5.9 G/DL (6.4-8.2) L Albumin 2.5 G/DL (3.4-5.0) L Globulin 3.4 g/dL Albumin/Globulin Ratio 0.7 (1.0-2.7) L Plan Problems: (1) Ileus (2) Sigmoid volvulus Assessment & Plan: 78 year old male with concerns of sigmoid volvulus. afebrile, HD stable, abnormal electrolytes, distended, tympanic, no abd pain. states he is having flatus now. pending final results of barium enema but from report likely has colonic ileus does not seem to clinically have sigmoid volvulus and CT reviewed and more consistent with ileus. Remains very distended, tympanic, non tender. afebrile, HD stable, no leukocytosis hypo K okay for diet iv fluids replace electrolytes trend labs will follow with serial exams given colonoscopy findings, exam, kub results, labs, and clinical course there is consideration for colectomy. I discussed this option with patient. he states he needs to talk with his family first. had not talked to family yet. spoke with patient today. states he does not want surgery. discharge planning Chava Smith Dec 21, 2018 13:54
[2018-12-21] MEDS: Spironolactone 50mg tab ORAL SCH ×2 (14:06→21:38)
[2018-12-21] MEDS ORDERED: Potassium Chloride 40 MEQ in Sodium Chloride 550 ML IV ONE (15:00)
[2018-12-21 16:00] VITALS: BP 165/84
--- NOTE | 2018-12-21 19:48 | NUR ---
HAND-OFF: Report given to ANA PAULA Christie.
[2018-12-21 20:00] VITALS: BP 148/68
--- NOTE | 2018-12-21 21:34 | General Progress Note ---
Assessment/Plan Problem List: (1) Hypokalemia ICD Codes: E87.6 - Hypokalemia SNOMED: 80951646 (2) Ileus ICD Codes: K56.7 - Ileus, unspecified SNOMED: 436300513 (3) Gastroparesis ICD Codes: K31.84 - Gastroparesis SNOMED: 786177260 (4) Sigmoid volvulus ICD Codes: K56.2 - Volvulus SNOMED: 295316501 (5) HTN (hypertension) ICD Codes: I10 - Essential (primary) hypertension SNOMED: 04142008 Status: progressing Assessment/Plan s/p volvulos positive bowel sounds still distended abdomin reequires high dose of kcl elevated bp Subjective ROS Limited/Unobtainable: Yes Allergies: Coded Allergies: No Known Allergies (Unverified , 04/22/17) Objective Last 24 Hour Vital Signs Date Time Temp Pulse Resp B/P (MAP) Pulse Ox O2 Delivery O2 Flow Rate FiO2 12/21/18 16:00 98.1 60 20 165/84 (111) 97 12/21/18 16:00 61 12/21/18 14:06 164/78 12/21/18 12:00 98.0 60 18 164/78 (106) 100 12/21/18 12:00 61 12/21/18 09:00 60 139/63 12/21/18 09:00 Room Air 12/21/18 08:00 60 12/21/18 08:00 97.5 60 20 139/63 (88) 99 12/21/18 06:00 146/68 12/21/18 04:00 60 12/21/18 04:00 99.0 61 19 146/68 (94) 100 12/21/18 00:00 60 12/21/18 00:00 99.1 61 18 141/66 (91) 98 12/20/18 21:40 160/86 Intake and Output 12/20/18 12/21/18 18:59 06:59 Intake Total 720 ml Balance 720 ml Intake Oral 720 ml # Voids 5 1 # Bowel Movements 1 Laboratory Tests 12/21/18 06:00: White Blood Count 8.9, Red Blood Count 3.76L, Hemoglobin 11.5L, Hematocrit 34.9L , Mean Corpuscular Volume 93, Mean Corpuscular Hemoglobin 30.7, Mean Corpuscular Hemoglobin Concent 33.0, Red Cell Distribution Width 12.1, Platelet Count 205, Mean Platelet Volume 5.9L, Neutrophils (%) (Auto) 78.5H, Lymphocytes (%) (Auto) 15.2L, Monocytes (%) (Auto) 5.4, Eosinophils (%) (Auto) 0.6, Basophils (%) (Auto) 0.4, Sodium Level 145, Potassium Level 2.7*L, Chloride Level 113H, Carbon Dioxide Level 20L, Anion Gap 12, Blood Urea Nitrogen 11, Creatinine 0.9, Estimat Glomerular Filtration Rate , Glucose Level 96, Uric Acid 2.7, Calcium Level 7.2L, Phosphorus Level 2.4L, Magnesium Level 2.0, Total Bilirubin 0.3, Aspartate Amino Transf (AST/SGOT) 15, Alanine Aminotransferase ( ALT/SGPT) 14, Alkaline Phosphatase 62, C-Reactive Protein, Quantitative < 0.4, Pro-B-Type Natriuretic Peptide 1170H, Total Protein 5.9L, Albumin 2.5L, Globulin 3.4, Albumin/Globulin Ratio 0.7L Height (Feet): 5 Height (Inches): 11.00 Weight (Pounds): 181 Respiratory/Chest: lungs clear Abdomen: distended Jose Francisco Chand MD Dec 21, 2018 21:34
[2018-12-21] MEDS: Dyna-Hex 2% Top Sol 2oz TOPIC SCH (21:38)
[2018-12-22] VITALS: BP 143/76
[2018-12-22 04:00] VITALS: BP 160/74
[2018-12-22] MEDS: HydrALAZINE 25mg tab ORAL SCH ×3 (06:00→20:58)
[2018-12-22] MEDS: Spironolactone 50mg tab ORAL SCH ×3 (06:00→20:59)
[2018-12-22] MEDS: NovoLOG Insulin Flexpen SUBQ SCH ×4 (06:19→21:00)
[2018-12-22] MEDS: Octreotide Acetate 500 MCG in Sodium Chloride 499 ML IV SCH ×2 (06:19→16:00)
--- NOTE | 2018-12-22 06:45 | NUR ---
NURSE NOTES: Attempted to order c.diff per protocol for multiple loose stools. Per lab staff, previous c.diff has not been resulted and therefore another order cannot be placed until that result is in the computer. Will endorse to AM shift.
[2018-12-22 07:15] LABS: BASOPHILS % (AUTO) 0.5 % (0.0-2.0); EOSINOPHILS % (AUTO) 1.2 % (0.0-3.0); HEMATOCRIT 34.8 % (42.0-52.0); HEMOGLOBIN 11.5 G/DL (14.2-18.0); MEAN CORPUSCULAR VOLUME 93 FL (80-99); MONOCYTES % (AUTO) 6.5 % (1.0-10.0); NEUTROPHILS % (AUTO) 76.9 % (45.0-75.0); PLATELET COUNT 188 K/UL (150-450); RED BLOOD COUNT 3.73 M/UL (4.70-6.10); RED CELL DISTRIBUTION WIDTH 12.4 % (11.6-14.8)
--- NOTE | 2018-12-22 07:18 | NUR ---
HAND-OFF: Report given to Adam Osorio RN. Pt is resting in bed in stable condition. No acute distress noted. Endorsed plan of care.
--- NOTE | 2018-12-22 07:30 | NUR ---
NURSE NOTES: Received report from Lamont Zepeda RN. Patient alert and oriented x 3, able to make needs known. On room air, respirations even and unlabored. Right upper arm PICC infusing Sandostatin @ 50 cc/hr, asymptomatic. Bed locked in lowest position with side rails up x 3. All needs attended to. Call light within reach. Will continue to monitor.
[2018-12-22 07:31] LABS: ALANINE AMINOTRANSFERASE 17 U/L (12-78); ALBUMIN 2.5 G/DL (3.4-5.0); ALBUMIN/GLOBULIN RATIO 0.7 (1.0-2.7); ALKALINE PHOSPHATASE 66 U/L (46-116); ANION GAP 12 mmol/L (5-15); ASPARTATE AMINO TRANSFERASE 11 U/L (15-37); BILIRUBIN,TOTAL 0.2 MG/DL (0.2-1.0); BLOOD UREA NITROGEN 12 mg/dL (7-18); CALCIUM 7.3 MG/DL (8.5-10.1); CARBON DIOXIDE 20 MMOL/L (21-32); CHLORIDE 115 MMOL/L (98-107); CREATININE 0.8 MG/DL (0.55-1.30); PHOSPHORUS 1.7 MG/DL (2.5-4.9); POTASSIUM 2.8 MMOL/L (3.5-5.1); SODIUM 147 MMOL/L (136-145)
[2018-12-22 08:00] VITALS: BP 181/84
[2018-12-22] MEDS: Mesalamine 400mg cap ORAL SCH ×4 (09:25→17:41)
[2018-12-22] MEDS ORDERED: SODIUM PHOSPHATE IVPB ONE (10:00)
[2018-12-22] MEDS ORDERED: NS IVPB ONE (10:00)
--- NOTE | 2018-12-22 10:48 | GI Progress Note ---
Assessment/Plan Problems: (1) Sigmoid volvulus ICD Codes: K56.2 - Volvulus SNOMED: 898330065 (2) Gastroparesis ICD Codes: K31.84 - Gastroparesis SNOMED: 354137113 (3) Ileus ICD Codes: K56.7 - Ileus, unspecified SNOMED: 796272005 (4) Anemia ICD Codes: D64.9 - Anemia, unspecified SNOMED: 090545009 (5) Diabetes mellitus ICD Codes: E11.9 - Type 2 diabetes mellitus without complications SNOMED: 76767017 Status: stable Status Narrative Discussed with Dr. Ortiz Assessment/Plan Assessment - chronic abd distention - anemia - DM - Hypothyroid - severe hypokalemia - hx of carcinomas SUMMARY OF FINDINGS: 1. Incomplete colonoscopy examination. 2. An area of edema at about 30 cm from the anal verge causing a kind of colonic outlet obstruction, status post biopsy of this area. Also status post biopsy of the sigmoid colon with some inflammation. 3. Severe colonic dilation and ileus, status post decompression, almost 3600 mL of fluid was aspirated in this procedure. Biopsy shows mild active colitis RECOMMENDATIONS: The patient requires turn every 2 hours Serial imaging as needed Consider rectal tube if patient has persistent colonic dilation Aldactone to 100 advance diet Continue mesalamine Electrolyte replacement per nephro abd exam is much better recommending holding surg for now will fu The patient was seen and examined at bedside and all new and available data was reviewed in the patients chart. I agree with the above findings, impression and plan. (Patient seen earlier today. Signature stamp does not reflect patient encounter time.). - Tavares Ortiz MD Subjective Gastrointestinal/Abdominal: Reports: no symptoms Subjective Abdominal distention Patient overall feels better Objective Last 24 Hour Vital Signs Date Time Temp Pulse Resp B/P (MAP) Pulse Ox O2 Delivery O2 Flow Rate FiO2 12/22/18 09:25 62 149/69 12/22/18 08:00 97.6 65 20 181/84 (116) 98 12/22/18 07:53 181/84 12/22/18 07:33 62 12/22/18 06:00 160/74 12/22/18 04:00 98.1 61 18 160/74 (102) 99 12/22/18 04:00 98 12/22/18 00:00 62 12/22/18 00:00 98.6 62 18 143/76 (98) 99 12/21/18 21:33 148/68 12/21/18 21:00 Room Air 12/21/18 20:00 61 12/21/18 20:00 98.8 61 18 148/68 (94) 99 12/21/18 16:00 98.1 60 20 165/84 (111) 97 12/21/18 16:00 61 12/21/18 14:06 164/78 12/21/18 12:00 98.0 60 18 164/78 (106) 100 12/21/18 12:00 61 Intake and Output 12/21/18 12/22/18 19:00 07:00 Intake Total 360 ml 240 ml Balance 360 ml 240 ml Intake Oral 360 ml 240 ml # Voids 3 1 # Bowel Movements 1 1 Laboratory Tests Test 12/22/18 06:45 White Blood Count 8.0 K/UL (4.8-10.8) Red Blood Count 3.73 M/UL (4.70-6.10) L Hemoglobin 11.5 G/DL (14.2-18.0) L Hematocrit 34.8 % (42.0-52.0) L Mean Corpuscular Volume 93 FL (80-99) Mean Corpuscular Hemoglobin 30.7 PG (27.0-31.0) Mean Corpuscular Hemoglobin Concent 32.9 G/DL (32.0-36.0) Red Cell Distribution Width 12.4 % (11.6-14.8) Platelet Count 188 K/UL (150-450) Mean Platelet Volume 7.1 FL (6.5-10.1) Neutrophils (%) (Auto) 76.9 % (45.0-75.0) H Lymphocytes (%) (Auto) 15.0 % (20.0-45.0) L Monocytes (%) (Auto) 6.5 % (1.0-10.0) Eosinophils (%) (Auto) 1.2 % (0.0-3.0) Basophils (%) (Auto) 0.5 % (0.0-2.0) Sodium Level 147 MMOL/L (136-145) H Potassium Level 2.8 MMOL/L (3.5-5.1) L Chloride Level 115 MMOL/L (98-107) H Carbon Dioxide Level 20 MMOL/L (21-32) L Anion Gap 12 mmol/L (5-15) Blood Urea Nitrogen 12 mg/dL (7-18) Creatinine 0.8 MG/DL (0.55-1.30) Estimat Glomerular Filtration Rate mL/min (>60) Glucose Level 107 MG/DL (74-106) H Calcium Level 7.3 MG/DL (8.5-10.1) L Phosphorus Level 1.7 MG/DL (2.5-4.9) L Magnesium Level 1.8 MG/DL (1.8-2.4) Total Bilirubin 0.2 MG/DL (0.2-1.0) Aspartate Amino Transf (AST/SGOT) 11 U/L (15-37) L Alanine Aminotransferase (ALT/SGPT) 17 U/L (12-78) Alkaline Phosphatase 66 U/L (46-116) Total Protein 6.1 G/DL (6.4-8.2) L Albumin 2.5 G/DL (3.4-5.0) L Globulin 3.6 g/dL Albumin/Globulin Ratio 0.7 (1.0-2.7) L Height (Feet): 5 Height (Inches): 11.00 Weight (Pounds): 181 General Appearance: WD/WN, no apparent distress, alert Cardiovascular: normal rate Respiratory/Chest: normal breath sounds, no respiratory distress Abdominal Exam: normal bowel sounds, non tender, soft, distended - Soft Extremities: non-tender Cristina Galloway NP Dec 22, 2018 10:48
[2018-12-22] MEDS ORDERED: POTASSIUM PHOSPHATE IV ONE (11:00)
[2018-12-22] MEDS ORDERED: SODIUM CHLORIDE IV ONE (11:00)
--- NOTE | 2018-12-22 11:41 | Surgery Progress Note ---
Surgery Progress Note Subjective Additional Comments looks better today. tolerating 100% of diet. trying to ambulate. abd softer. lots of loose stools Objective Last 24 Hour Vital Signs Date Time Temp Pulse Resp B/P (MAP) Pulse Ox O2 Delivery O2 Flow Rate FiO2 12/22/18 09:25 62 149/69 12/22/18 09:00 Room Air 12/22/18 08:00 97.6 65 20 181/84 (116) 98 12/22/18 07:53 181/84 12/22/18 07:33 62 12/22/18 06:00 160/74 12/22/18 04:00 98.1 61 18 160/74 (102) 99 12/22/18 04:00 98 12/22/18 00:00 62 12/22/18 00:00 98.6 62 18 143/76 (98) 99 12/21/18 21:33 148/68 12/21/18 21:00 Room Air 12/21/18 20:00 61 12/21/18 20:00 98.8 61 18 148/68 (94) 99 12/21/18 16:00 98.1 60 20 165/84 (111) 97 12/21/18 16:00 61 12/21/18 14:06 164/78 12/21/18 12:00 98.0 60 18 164/78 (106) 100 12/21/18 12:00 61 I&O Intake and Output 12/21/18 12/22/18 19:00 07:00 Intake Total 360 ml 240 ml Balance 360 ml 240 ml Intake Oral 360 ml 240 ml # Voids 3 1 # Bowel Movements 1 1 Dressing: other Wound: other Drains: other Cardiovascular: RSR Respiratory: clear Abdomen: soft, distended, non-tender, present bowel sounds Extremities: no tenderness, no cyanosis Laboratory Tests Test 12/22/18 06:45 White Blood Count 8.0 K/UL (4.8-10.8) Red Blood Count 3.73 M/UL (4.70-6.10) L Hemoglobin 11.5 G/DL (14.2-18.0) L Hematocrit 34.8 % (42.0-52.0) L Mean Corpuscular Volume 93 FL (80-99) Mean Corpuscular Hemoglobin 30.7 PG (27.0-31.0) Mean Corpuscular Hemoglobin Concent 32.9 G/DL (32.0-36.0) Red Cell Distribution Width 12.4 % (11.6-14.8) Platelet Count 188 K/UL (150-450) Mean Platelet Volume 7.1 FL (6.5-10.1) Neutrophils (%) (Auto) 76.9 % (45.0-75.0) H Lymphocytes (%) (Auto) 15.0 % (20.0-45.0) L Monocytes (%) (Auto) 6.5 % (1.0-10.0) Eosinophils (%) (Auto) 1.2 % (0.0-3.0) Basophils (%) (Auto) 0.5 % (0.0-2.0) Sodium Level 147 MMOL/L (136-145) H Potassium Level 2.8 MMOL/L (3.5-5.1) L Chloride Level 115 MMOL/L (98-107) H Carbon Dioxide Level 20 MMOL/L (21-32) L Anion Gap 12 mmol/L (5-15) Blood Urea Nitrogen 12 mg/dL (7-18) Creatinine 0.8 MG/DL (0.55-1.30) Estimat Glomerular Filtration Rate mL/min (>60) Glucose Level 107 MG/DL (74-106) H Calcium Level 7.3 MG/DL (8.5-10.1) L Phosphorus Level 1.7 MG/DL (2.5-4.9) L Magnesium Level 1.8 MG/DL (1.8-2.4) Total Bilirubin 0.2 MG/DL (0.2-1.0) Aspartate Amino Transf (AST/SGOT) 11 U/L (15-37) L Alanine Aminotransferase (ALT/SGPT) 17 U/L (12-78) Alkaline Phosphatase 66 U/L (46-116) Total Protein 6.1 G/DL (6.4-8.2) L Albumin 2.5 G/DL (3.4-5.0) L Globulin 3.6 g/dL Albumin/Globulin Ratio 0.7 (1.0-2.7) L Plan Problems: (1) Ileus (2) Sigmoid volvulus Assessment & Plan: 78 year old male with concerns of sigmoid volvulus. afebrile, HD stable, abnormal electrolytes, distended, tympanic, no abd pain. states he is having flatus now. pending final results of barium enema but from report likely has colonic ileus does not seem to clinically have sigmoid volvulus and CT reviewed and more consistent with ileus. Remains very distended, tympanic, non tender. afebrile, HD stable, no leukocytosis hypo K okay for diet iv fluids replace electrolytes trend labs will follow with serial exams given colonoscopy findings, exam, kub results, labs, and clinical course there is consideration for colectomy. I discussed this option with patient. he states he needs to talk with his family first. had not talked to family yet. spoke with patient today. states he does not want surgery. c diff negative otherwise stable. K still low discharge planning Chava Smith Dec 22, 2018 11:41
[2018-12-22 12:00] VITALS: BP 140/77
--- NOTE | 2018-12-22 13:16 | Nephrology Progress Note ---
Assessment/Plan Problem List: (1) Hypokalemia Assessment: persistant (2) UTI (urinary tract infection) (3) HTN (hypertension) (4) Ileus Assessment Low K Volvolus Anemia hypothyroid HTN BPH Dementia DM Plan Per GI- adjust BP meds Trial of Somatostatin and ASACOL K supplement IV and PO PO Aldactone increase dose Hydralazine for BP add Reglan change Rocephin to Cefepime, Pseudomonas UTI TSH wnl clear liquids IV hydrate discussed with RN Subjective ROS Limited/Unobtainable: No Constitutional: Reports: malaise Objective Objective Last 24 Hour Vital Signs Date Time Temp Pulse Resp B/P (MAP) Pulse Ox O2 Delivery O2 Flow Rate FiO2 12/22/18 12:00 97.8 67 20 140/77 (98) 95 12/22/18 09:25 62 149/69 12/22/18 09:00 Room Air 12/22/18 08:00 97.6 65 20 181/84 (116) 98 12/22/18 07:53 181/84 12/22/18 07:33 62 12/22/18 06:00 160/74 12/22/18 04:00 98.1 61 18 160/74 (102) 99 12/22/18 04:00 98 12/22/18 00:00 62 12/22/18 00:00 98.6 62 18 143/76 (98) 99 12/21/18 21:33 148/68 12/21/18 21:00 Room Air 12/21/18 20:00 61 12/21/18 20:00 98.8 61 18 148/68 (94) 99 12/21/18 16:00 98.1 60 20 165/84 (111) 97 12/21/18 16:00 61 12/21/18 14:06 164/78 Intake and Output 12/21/18 12/22/18 19:00 07:00 Intake Total 360 ml 240 ml Balance 360 ml 240 ml Intake Oral 360 ml 240 ml # Voids 3 1 # Bowel Movements 1 1 Laboratory Tests 12/22/18 06:45: White Blood Count 8.0, Red Blood Count 3.73L, Hemoglobin 11.5L, Hematocrit 34.8L , Mean Corpuscular Volume 93, Mean Corpuscular Hemoglobin 30.7, Mean Corpuscular Hemoglobin Concent 32.9, Red Cell Distribution Width 12.4, Platelet Count 188, Mean Platelet Volume 7.1, Neutrophils (%) (Auto) 76.9H, Lymphocytes ( %) (Auto) 15.0L, Monocytes (%) (Auto) 6.5, Eosinophils (%) (Auto) 1.2, Basophils (%) (Auto) 0.5, Sodium Level 147H, Potassium Level 2.8L, Chloride Level 115H, Carbon Dioxide Level 20L, Anion Gap 12, Blood Urea Nitrogen 12, Creatinine 0.8, Estimat Glomerular Filtration Rate , Glucose Level 107H, Calcium Level 7.3L, Phosphorus Level 1.7L, Magnesium Level 1.8, Total Bilirubin 0.2, Aspartate Amino Transf (AST/SGOT) 11L, Alanine Aminotransferase (ALT/SGPT) 17, Alkaline Phosphatase 66, Total Protein 6.1L, Albumin 2.5L, Globulin 3.6, Albumin/Globulin Ratio 0.7L Height (Feet): 5 Height (Inches): 11.00 Weight (Pounds): 181 General Appearance: no apparent distress Respiratory/Chest: decreased breath sounds Abdomen: soft, distended Objective no change Herve Marshall MD Dec 22, 2018 13:16
[2018-12-22 16:00] VITALS: BP 150/69
--- NOTE | 2018-12-22 17:12 | NUR ---
CASE MANAGEMENT: REVIEW 12/22/2018 SI: ILEUS . SIGMOID VOLVULUS . HYPOKALEMIA COLONOSCOPY w/BIOPSY 12/15 T 97.8 HR 67 RR 20 B/P 140/77 SATS 95% ON RA NA 147 K 2.8 CL 115 CO2 20 GLU 107 CA 7.3 PHOS 1.7 AST 11 IS: ALDACTONE PO BID K-DUR PO TID OCTREOTIDE IV GTT CEFEPIME IV Q12HR TELEMETRY UNIT STATUS DCP: PATIENT IS FROM [facility]
--- NOTE | 2018-12-22 17:42 | NUR ---
NURSE NOTES: Patient refused 18:00 dose of 40 meq K-Dur and 1,600 mcg mesalamine. Provided education on benefits of medication and risks of not taking medication. Patient verbalized understanding but still refused medications. Respected patient's wishes.
--- NOTE | 2018-12-22 19:16 | NUR ---
HAND-OFF: Report given to Lamont Le RN.
--- NOTE | 2018-12-22 19:20 | NUR ---
NURSE NOTES: Received patient from ANA PAULA Diallo. Patient on bed awake, quiet and alert. No signs of distress at this time. On room air. BM x1. Cleaned and kept dry. Call light within reach. Bed brakes engaged.
--- NOTE | 2018-12-22 19:25 | General Progress Note ---
Assessment/Plan Problem List: (1) Hypokalemia ICD Codes: E87.6 - Hypokalemia SNOMED: 70270991 (2) Diabetes mellitus ICD Codes: E11.9 - Type 2 diabetes mellitus without complications SNOMED: 66601844 (3) Hypothyroidism ICD Codes: E03.9 - Hypothyroidism, unspecified SNOMED: 46623352 (4) Ileus ICD Codes: K56.7 - Ileus, unspecified SNOMED: 062729349 (5) Sigmoid volvulus ICD Codes: K56.2 - Volvulus SNOMED: 443919638 (6) HTN (hypertension) ICD Codes: I10 - Essential (primary) hypertension SNOMED: 99683810 Assessment/Plan repeat thyroid function - he's been off Levothyroxine 25 mcg daily HTN and hypokalemia and enlarged adrenals raises 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 - we can't assess PAC/PRA as long as on Aldactone - continue Aldactone 50 mg tid continue NISS Subjective ROS Limited/Unobtainable: Yes Allergies: Coded Allergies: No Known Allergies (Unverified , 04/22/17) Subjective events noted Item Value Date Time Bedside Blood Glucose 83 mg/dl 12/22/18 1602 Bedside Blood Glucose 115 mg/dl 12/22/18 1144 Bedside Blood Glucose 106 mg/dl 12/22/18 0619 Bedside Blood Glucose 134 mg/dl H 12/21/18 2100 Objective Last 24 Hour Vital Signs Date Time Temp Pulse Resp B/P (MAP) Pulse Ox O2 Delivery O2 Flow Rate FiO2 12/22/18 16:00 98.0 61 20 150/69 (96) 100 12/22/18 15:14 60 12/22/18 14:08 175/72 12/22/18 12:00 97.8 67 20 140/77 (98) 95 12/22/18 11:53 60 12/22/18 09:25 62 149/69 12/22/18 09:00 Room Air 12/22/18 08:00 97.6 65 20 181/84 (116) 98 12/22/18 07:53 181/84 12/22/18 07:33 62 12/22/18 06:00 160/74 12/22/18 04:00 98.1 61 18 160/74 (102) 99 12/22/18 04:00 98 12/22/18 00:00 62 12/22/18 00:00 98.6 62 18 143/76 (98) 99 12/21/18 21:33 148/68 12/21/18 21:00 Room Air 12/21/18 20:00 61 12/21/18 20:00 98.8 61 18 148/68 (94) 99 Intake and Output 12/21/18 12/22/18 19:00 07:00 Intake Total 360 ml 274.167 ml Balance 360 ml 274.167 ml Intake Oral 360 ml 240 ml IV Total 34.167 ml # Voids 3 1 # Bowel Movements 1 1 Laboratory Tests 12/22/18 06:45: White Blood Count 8.0, Red Blood Count 3.73L, Hemoglobin 11.5L, Hematocrit 34.8L , Mean Corpuscular Volume 93, Mean Corpuscular Hemoglobin 30.7, Mean Corpuscular Hemoglobin Concent 32.9, Red Cell Distribution Width 12.4, Platelet Count 188, Mean Platelet Volume 7.1, Neutrophils (%) (Auto) 76.9H, Lymphocytes ( %) (Auto) 15.0L, Monocytes (%) (Auto) 6.5, Eosinophils (%) (Auto) 1.2, Basophils (%) (Auto) 0.5, Sodium Level 147H, Potassium Level 2.8L, Chloride Level 115H, Carbon Dioxide Level 20L, Anion Gap 12, Blood Urea Nitrogen 12, Creatinine 0.8, Estimat Glomerular Filtration Rate , Glucose Level 107H, Calcium Level 7.3L, Phosphorus Level 1.7L, Magnesium Level 1.8, Total Bilirubin 0.2, Aspartate Amino Transf (AST/SGOT) 11L, Alanine Aminotransferase (ALT/SGPT) 17, Alkaline Phosphatase 66, Total Protein 6.1L, Albumin 2.5L, Globulin 3.6, Albumin/Globulin Ratio 0.7L Height (Feet): 5 Height (Inches): 11.00 Weight (Pounds): 181 General Appearance: no apparent distress Neck: normal alignment Cardiovascular: normal rate Respiratory/Chest: lungs clear Abdomen: hypoactive bowel sounds Objective Current Medications Medications (Trade) Dose Ordered Sig/Kevin Route PRN Reason Start Time Stop Time Status Last Admin Dose Admin Acetaminophen (Tylenol) 650 mg Q4H PRN ORAL Mild Pain/Temp > 100.5 12/11/18 17:30 01/10/19 17:29 12/14/18 20:49 Amlodipine Besylate (Norvasc) 10 mg DAILY ORAL 12/19/18 09:00 01/18/19 08:59 12/22/18 09:25 Chlorhexidine Gluconate (Alejandrina-Hex 2%) 1 applic DAILY@2000 TOPIC 12/18/18 20:00 01/17/19 19:59 12/21/18 21:38 Dextrose (Dextrose 50%) 25 ml Q30M PRN IV Hypoglycemia 12/17/18 02:30 01/16/19 02:29 Dextrose (Dextrose 50%) 50 ml Q30M PRN IV Hypoglycemia 12/17/18 02:30 01/16/19 02:29 Hydralazine HCl (Apresoline) 10 mg Q4H PRN IV for BP >160 12/14/18 22:45 01/13/19 22:44 12/22/18 07:53 Hydralazine HCl (Apresoline) 75 mg Q8HR ORAL 12/18/18 22:00 01/11/19 17:59 12/22/18 14:08 Insulin Aspart (NovoLOG) BEFORE MEALS AND HS SUBQ 12/17/18 06:30 01/16/19 06:29 12/20/18 12:41 Mesalamine (Asacol) 1,600 mg THREE TIMES A DAY ORAL 12/19/18 13:00 01/18/19 12:59 12/22/18 13:14 Octreotide Acetate 500 mcg/ Sodium Chloride 500 ml @ 50 mls/hr Q10H IV 12/21/18 10:00 01/20/19 09:59 12/22/18 16:00 Ondansetron HCl (Zofran) 4 mg Q6H PRN IVP Nausea & Vomiting 12/14/18 22:45 01/13/19 22:44 12/14/18 22:57 Potassium Chloride (K-Dur) 40 meq QID ORAL 12/21/18 09:00 01/14/19 08:59 12/22/18 13:14 Spironolactone (Aldactone) 50 mg Q8HR ORAL 12/21/18 14:00 01/11/19 08:59 12/22/18 14:08 Rodriguez Mata MD Dec 22, 2018 19:25
[2018-12-22] MEDS: Dyna-Hex 2% Top Sol 2oz TOPIC SCH (20:57)
[2018-12-22 21:00] VITALS: BP 163/82
--- NOTE | 2018-12-22 21:56 | General Progress Note ---
Assessment/Plan Problem List: (1) Hypokalemia ICD Codes: E87.6 - Hypokalemia SNOMED: 02582960 (2) Ileus ICD Codes: K56.7 - Ileus, unspecified SNOMED: 256351099 (3) Gastroparesis ICD Codes: K31.84 - Gastroparesis SNOMED: 494765120 (4) Sigmoid volvulus ICD Codes: K56.2 - Volvulus SNOMED: 479945272 (5) HTN (hypertension) ICD Codes: I10 - Essential (primary) hypertension SNOMED: 35752269 Status: progressing Assessment/Plan s/p volvulos positive bowel sounds still distended abdomen although somewhat better reequires high dose of kcl elevated bp is improved obs Subjective ROS Limited/Unobtainable: Yes Allergies: Coded Allergies: No Known Allergies (Unverified , 04/22/17) Objective Last 24 Hour Vital Signs Date Time Temp Pulse Resp B/P (MAP) Pulse Ox O2 Delivery O2 Flow Rate FiO2 12/22/18 20:58 163/82 12/22/18 16:00 98.0 61 20 150/69 (96) 100 12/22/18 15:14 60 12/22/18 14:08 175/72 12/22/18 12:00 97.8 67 20 140/77 (98) 95 12/22/18 11:53 60 12/22/18 09:25 62 149/69 12/22/18 09:00 Room Air 12/22/18 08:00 97.6 65 20 181/84 (116) 98 12/22/18 07:53 181/84 12/22/18 07:33 62 12/22/18 06:00 160/74 12/22/18 04:00 98.1 61 18 160/74 (102) 99 12/22/18 04:00 98 12/22/18 00:00 62 12/22/18 00:00 98.6 62 18 143/76 (98) 99 Intake and Output 12/21/18 12/22/18 19:00 07:00 Intake Total 360 ml 274.167 ml Balance 360 ml 274.167 ml Intake Oral 360 ml 240 ml IV Total 34.167 ml # Voids 3 1 # Bowel Movements 1 1 Laboratory Tests 12/22/18 06:30: Thyroid Stimulating Hormone (TSH) 0.556, Free Thyroxine 0.80 12/22/18 06:45: White Blood Count 8.0, Red Blood Count 3.73L, Hemoglobin 11.5L, Hematocrit 34.8L , Mean Corpuscular Volume 93, Mean Corpuscular Hemoglobin 30.7, Mean Corpuscular Hemoglobin Concent 32.9, Red Cell Distribution Width 12.4, Platelet Count 188, Mean Platelet Volume 7.1, Neutrophils (%) (Auto) 76.9H, Lymphocytes ( %) (Auto) 15.0L, Monocytes (%) (Auto) 6.5, Eosinophils (%) (Auto) 1.2, Basophils (%) (Auto) 0.5, Sodium Level 147H, Potassium Level 2.8L, Chloride Level 115H, Carbon Dioxide Level 20L, Anion Gap 12, Blood Urea Nitrogen 12, Creatinine 0.8, Estimat Glomerular Filtration Rate , Glucose Level 107H, Calcium Level 7.3L, Phosphorus Level 1.7L, Magnesium Level 1.8, Total Bilirubin 0.2, Aspartate Amino Transf (AST/SGOT) 11L, Alanine Aminotransferase (ALT/SGPT) 17, Alkaline Phosphatase 66, Total Protein 6.1L, Albumin 2.5L, Globulin 3.6, Albumin/Globulin Ratio 0.7L Height (Feet): 5 Height (Inches): 11.00 Weight (Pounds): 181 Abdomen: distended Jose Francisco Chand MD Dec 22, 2018 21:56
[2018-12-23] VITALS: BP 154/73
[2018-12-23] MEDS: Octreotide Acetate 500 MCG in Sodium Chloride 499 ML IV SCH ×3 (02:02→22:20)
[2018-12-23 03:49] VITALS: BP 144/68
--- NOTE | 2018-12-23 04:48 | NUR ---
NURSE NOTES: AM Labs taken by RN via [facility]. Sent to the lab.
[2018-12-23] MEDS: Spironolactone 50mg tab ORAL SCH ×3 (05:27→22:00)
[2018-12-23] MEDS: HydrALAZINE 25mg tab ORAL SCH ×3 (05:28→22:00)
[2018-12-23 05:53] LABS: BASOPHILS % (AUTO) 0.6 % (0.0-2.0); EOSINOPHILS % (AUTO) 0.8 % (0.0-3.0); HEMATOCRIT 38.3 % (42.0-52.0); HEMOGLOBIN 12.6 G/DL (14.2-18.0); MEAN CORPUSCULAR VOLUME 95 FL (80-99); MONOCYTES % (AUTO) 6.9 % (1.0-10.0); NEUTROPHILS % (AUTO) 71.8 % (45.0-75.0); PLATELET COUNT 243 K/UL (150-450); RED BLOOD COUNT 4.05 M/UL (4.70-6.10); RED CELL DISTRIBUTION WIDTH 12.8 % (11.6-14.8); WHITE BLOOD COUNT 8.5 K/UL (4.8-10.8)
[2018-12-23] MEDS: NovoLOG Insulin Flexpen SUBQ SCH ×4 (05:57→20:42)
[2018-12-23 06:07] LABS: ANION GAP 11 mmol/L (5-15); BLOOD UREA NITROGEN 14 mg/dL (7-18); CALCIUM 7.7 MG/DL (8.5-10.1); CARBON DIOXIDE 18 MMOL/L (21-32); CHLORIDE 117 MMOL/L (98-107); CREATININE 0.9 MG/DL (0.55-1.30); PHOSPHORUS 2.8 MG/DL (2.5-4.9); POTASSIUM 3.9 MMOL/L (3.5-5.1); SODIUM 146 MMOL/L (136-145)
--- NOTE | 2018-12-23 07:00 | General Progress Note ---
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 - we can't assess PAC/PRA as long as on Aldactone - continue Aldactone 50 mg tid continue NISS Subjective ROS Limited/Unobtainable: Yes Allergies: Coded Allergies: No Known Allergies (Unverified , 04/22/17) Subjective events noted Item Value Date Time Bedside Blood Glucose 90 mg/dl 12/23/18 0558 Bedside Blood Glucose 88 mg/dl 12/22/18 2100 Bedside Blood Glucose 83 mg/dl 12/22/18 1602 Bedside Blood Glucose 115 mg/dl 12/22/18 1144 Bedside Blood Glucose 106 mg/dl 12/22/18 0619 Objective Last 24 Hour Vital Signs Date Time Temp Pulse Resp B/P (MAP) Pulse Ox O2 Delivery O2 Flow Rate FiO2 12/23/18 05:28 144/68 12/23/18 03:49 98.0 61 18 144/68 (93) 100 12/23/18 03:35 74 12/23/18 00:36 62 12/23/18 00:00 98.4 62 18 154/73 (100) 99 12/22/18 23:23 64 12/22/18 21:00 Room Air 12/22/18 21:00 98.8 62 18 163/82 (109) 100 12/22/18 20:58 163/82 12/22/18 16:00 98.0 61 20 150/69 (96) 100 12/22/18 15:14 60 12/22/18 14:08 175/72 12/22/18 12:00 97.8 67 20 140/77 (98) 95 12/22/18 11:53 60 12/22/18 09:25 62 149/69 12/22/18 09:00 Room Air 12/22/18 08:00 97.6 65 20 181/84 (116) 98 12/22/18 07:53 181/84 12/22/18 07:33 62 Intake and Output 12/22/18 12/23/18 19:00 07:00 Intake Total 1587.231 ml 450 ml Balance 1587.231 ml 450 ml Intake Oral 640 ml IV Total 947.231 ml 450 ml # Voids 3 # Bowel Movements 4 1 Laboratory Tests 12/23/18 04:00: White Blood Count 8.5, Red Blood Count 4.05L, Hemoglobin 12.6L, Hematocrit 38.3L , Mean Corpuscular Volume 95, Mean Corpuscular Hemoglobin 31.2H, Mean Corpuscular Hemoglobin Concent 32.9, Red Cell Distribution Width 12.8, Platelet Count 243, Mean Platelet Volume 6.8, Neutrophils (%) (Auto) 71.8, Lymphocytes (% ) (Auto) 20.0, Monocytes (%) (Auto) 6.9, Eosinophils (%) (Auto) 0.8, Basophils ( %) (Auto) 0.6, Sodium Level 146H, Potassium Level 3.9, Chloride Level 117H, Carbon Dioxide Level 18L, Anion Gap 11, Blood Urea Nitrogen 14, Creatinine 0.9, Estimat Glomerular Filtration Rate , Glucose Level 98, Calcium Level 7.7L, Phosphorus Level 2.8, Magnesium Level 1.8, Total Bilirubin [Pending], Direct Bilirubin [Pending], Aspartate Amino Transf (AST/SGOT) [Pending], Alanine Aminotransferase (ALT/SGPT) [Pending], Alkaline Phosphatase [Pending], Total Protein [Pending], Albumin [Pending] Height (Feet): 5 Height (Inches): 11.00 Weight (Pounds): 181 General Appearance: no apparent distress Neck: normal alignment Cardiovascular: normal rate Respiratory/Chest: lungs clear Abdomen: normal bowel sounds Objective Current Medications Medications (Trade) Dose Ordered Sig/Kevin Route PRN Reason Start Time Stop Time Status Last Admin Dose Admin Acetaminophen (Tylenol) 650 mg Q4H PRN ORAL Mild Pain/Temp > 100.5 12/11/18 17:30 4/21/19 17:29 12/14/18 20:49 Amlodipine Besylate (Norvasc) 10 mg DAILY ORAL 12/19/18 09:00 01/18/19 08:59 12/22/18 09:25 Chlorhexidine Gluconate (Alejandrina-Hex 2%) 1 applic DAILY@2000 TOPIC 12/18/18 20:00 01/17/19 19:59 12/22/18 20:57 Dextrose (Dextrose 50%) 25 ml Q30M PRN IV Hypoglycemia 12/17/18 02:30 01/16/19 02:29 Dextrose (Dextrose 50%) 50 ml Q30M PRN IV Hypoglycemia 12/17/18 02:30 01/16/19 02:29 Hydralazine HCl (Apresoline) 10 mg Q4H PRN IV for BP >160 12/14/18 22:45 01/13/19 22:44 12/22/18 07:53 Hydralazine HCl (Apresoline) 75 mg Q8HR ORAL 12/18/18 22:00 01/11/19 17:59 12/23/18 05:28 Insulin Aspart (NovoLOG) BEFORE MEALS AND HS SUBQ 12/17/18 06:30 01/16/19 06:29 12/20/18 12:41 Mesalamine (Asacol) 1,600 mg THREE TIMES A DAY ORAL 12/19/18 13:00 01/18/19 12:59 12/22/18 13:14 Octreotide Acetate 500 mcg/ Sodium Chloride 500 ml @ 50 mls/hr Q10H IV 12/21/18 10:00 01/20/19 09:59 12/23/18 02:02 Ondansetron HCl (Zofran) 4 mg Q6H PRN IVP Nausea & Vomiting 12/14/18 22:45 01/13/19 22:44 12/14/18 22:57 Potassium Chloride (K-Dur) 40 meq QID ORAL 12/21/18 09:00 01/14/19 08:59 12/22/18 20:58 Spironolactone (Aldactone) 50 mg Q8HR ORAL 12/21/18 14:00 01/11/19 08:59 12/23/18 05:27 Rodriguez Mata MD Dec 23, 2018 07:00
--- NOTE | 2018-12-23 07:28 | NUR ---
HAND-OFF: Report given to AN APAULA Moreira. Endorsed plan of care.
--- NOTE | 2018-12-23 07:30 | NUR ---
NURSE NOTES: Pt received from ANA PAULA Xiao alert and oriented x3 with no acute s/s of distress. IV site asymptomatic and patent. Bed in lowest position, call light and belongings within reach.
[2018-12-23 07:43] LABS: ALANINE AMINOTRANSFERASE 20 U/L (12-78); ALBUMIN 2.8 G/DL (3.4-5.0); ALKALINE PHOSPHATASE 69 U/L (46-116); ASPARTATE AMINO TRANSFERASE 19 U/L (15-37); BILIRUBIN,DIRECT < 0.1 MG/DL (0.0-0.3); BILIRUBIN,TOTAL 0.2 MG/DL (0.2-1.0)
[2018-12-23 08:00] VITALS: BP 146/68
--- NOTE | 2018-12-23 09:58 | Nephrology Progress Note ---
Assessment/Plan Problem List: (1) Hypokalemia Assessment: persistant (2) UTI (urinary tract infection) (3) HTN (hypertension) (4) Ileus Assessment Low K Volvolus Anemia hypothyroid HTN BPH Dementia DM Plan Per GI- adjust BP meds Trial of Somatostatin and ASACOL K supplement IV and PO PO Aldactone increase dose Hydralazine for BP add Reglan change Rocephin to Cefepime, Pseudomonas UTI TSH wnl clear liquids IV hydrate discussed with RN Subjective ROS Limited/Unobtainable: No Objective Objective Last 24 Hour Vital Signs Date Time Temp Pulse Resp B/P (MAP) Pulse Ox O2 Delivery O2 Flow Rate FiO2 12/23/18 05:28 144/68 12/23/18 03:49 98.0 61 18 144/68 (93) 100 12/23/18 03:35 74 12/23/18 00:36 62 12/23/18 00:00 98.4 62 18 154/73 (100) 99 12/22/18 23:23 64 12/22/18 21:00 Room Air 12/22/18 21:00 98.8 62 18 163/82 (109) 100 12/22/18 20:58 163/82 12/22/18 16:00 98.0 61 20 150/69 (96) 100 12/22/18 15:14 60 12/22/18 14:08 175/72 12/22/18 12:00 97.8 67 20 140/77 (98) 95 12/22/18 11:53 60 Intake and Output 12/22/18 12/23/18 19:00 07:00 Intake Total 1587.231 ml 550 ml Balance 1587.231 ml 550 ml Intake Oral 640 ml IV Total 947.231 ml 550 ml # Voids 3 # Bowel Movements 4 3 Laboratory Tests 12/23/18 04:00: White Blood Count 8.5, Red Blood Count 4.05L, Hemoglobin 12.6L, Hematocrit 38.3L , Mean Corpuscular Volume 95, Mean Corpuscular Hemoglobin 31.2H, Mean Corpuscular Hemoglobin Concent 32.9, Red Cell Distribution Width 12.8, Platelet Count 243, Mean Platelet Volume 6.8, Neutrophils (%) (Auto) 71.8, Lymphocytes (% ) (Auto) 20.0, Monocytes (%) (Auto) 6.9, Eosinophils (%) (Auto) 0.8, Basophils ( %) (Auto) 0.6, Sodium Level 146H, Potassium Level 3.9, Chloride Level 117H, Carbon Dioxide Level 18L, Anion Gap 11, Blood Urea Nitrogen 14, Creatinine 0.9, Estimat Glomerular Filtration Rate , Glucose Level 98, Calcium Level 7.7L, Phosphorus Level 2.8, Magnesium Level 1.8, Total Bilirubin 0.2, Direct Bilirubin < 0.1, Aspartate Amino Transf (AST/SGOT) 19, Alanine Aminotransferase (ALT/SGPT) 20, Alkaline Phosphatase 69, Total Protein 6.7, Albumin 2.8L Height (Feet): 5 Height (Inches): 11.00 Weight (Pounds): 181 General Appearance: no apparent distress Cardiovascular: normal rate Respiratory/Chest: decreased breath sounds Abdomen: soft Objective no change Herve Marshall MD Dec 23, 2018 09:58
[2018-12-23] MEDS: Mesalamine 400mg cap ORAL SCH ×3 (10:03→17:25)
--- NOTE | 2018-12-23 10:58 | NUR ---
RD ASSESSMENT & RECOMMENDATIONS SEE CARE ACTIVITY FOR COMPLETE ASSESSMENT DAILY ESTIMATED NEEDS: Needs based on DM/ 79.5kg abw 25-30 kcals/kg total kcals 1-1.2 g protein/kg 80-96 g total protein 25-30 mL/kg total fluid mLs NUTRITION DIAGNOSIS: *Altered nutrition related lab values R/T clinical condition as evidenced by elev Na(146), critically low K (2.3->normalized), low phos (1.8-> wnl) * Altered GI function R/T sigmoid volvulus as evidenced by + abdominal distention, s/p colonoscopy w/ finding of severe colonic dilation and ileus, status post decompression, almost 3600 mL of fluid was aspirated, diet advanced soft easy chew. CURRENT DIET:CCHO LOW, LOW FIBER/LOW RESIDUE, LOW POTASSIUM (soft easy chew) PO DIET RECOMMENDATIONS: Low Fiber/ Low Residue, CCHO Med (texture as tolerated) ADDITIONAL RECOMMENDATIONS: * Calibrated bedscale wt for accurate CBW * Monitor lytes daily, replete as needed -> consistently low K and phos * Monitor PO tolerance and acceptance .
--- NOTE | 2018-12-23 10:59 | GI Progress Note ---
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 Ortiz. Assessment/Plan Assessment - chronic abd distention - anemia - DM - Hypothyroid - severe hypokalemia - hx of carcinomas chronic colonic ileus SUMMARY OF FINDINGS: 1. Incomplete colonoscopy examination. 2. An area of edema at about 30 cm from the anal verge causing a kind of colonic outlet obstruction, status post biopsy of this area. Also status post biopsy of the sigmoid colon with some inflammation. 3. Severe colonic dilation and ileus, status post decompression, almost 3600 mL of fluid was aspirated in this procedure. Biopsy shows mild active colitis RECOMMENDATIONS: The patient requires turn every 2 hours Serial imaging as needed Aldactone to 100 advance diet Continue mesalamine Electrolyte replacement per nephro abd exam is much better recommending holding surg for now will dc planning The patient was seen and examined at bedside and all new and available data was reviewed in the patients chart. I agree with the above findings, impression and plan. (Patient seen earlier today. Signature stamp does not reflect patient encounter time.). - Tavares Ortiz MD Subjective Subjective Abdominal distention Patient overall feels better Objective Last 24 Hour Vital Signs Date Time Temp Pulse Resp B/P (MAP) Pulse Ox O2 Delivery O2 Flow Rate FiO2 12/23/18 10:02 63 146/68 12/23/18 09:00 Room Air 12/23/18 08:00 97.1 63 20 146/68 (94) 100 12/23/18 05:28 144/68 12/23/18 03:49 98.0 61 18 144/68 (93) 100 12/23/18 03:35 74 12/23/18 00:36 62 12/23/18 00:00 98.4 62 18 154/73 (100) 99 12/22/18 23:23 64 12/22/18 21:00 Room Air 12/22/18 21:00 98.8 62 18 163/82 (109) 100 12/22/18 20:58 163/82 12/22/18 16:00 98.0 61 20 150/69 (96) 100 12/22/18 15:14 60 12/22/18 14:08 175/72 12/22/18 12:00 97.8 67 20 140/77 (98) 95 12/22/18 11:53 60 Intake and Output 12/22/18 12/23/18 19:00 07:00 Intake Total 1587.231 ml 550 ml Balance 1587.231 ml 550 ml Intake Oral 640 ml IV Total 947.231 ml 550 ml # Voids 3 # Bowel Movements 4 3 Laboratory Tests Test 12/23/18 04:00 White Blood Count 8.5 K/UL (4.8-10.8) Red Blood Count 4.05 M/UL (4.70-6.10) L Hemoglobin 12.6 G/DL (14.2-18.0) L Hematocrit 38.3 % (42.0-52.0) L Mean Corpuscular Volume 95 FL (80-99) Mean Corpuscular Hemoglobin 31.2 PG (27.0-31.0) H Mean Corpuscular Hemoglobin Concent 32.9 G/DL (32.0-36.0) Red Cell Distribution Width 12.8 % (11.6-14.8) Platelet Count 243 K/UL (150-450) Mean Platelet Volume 6.8 FL (6.5-10.1) Neutrophils (%) (Auto) 71.8 % (45.0-75.0) Lymphocytes (%) (Auto) 20.0 % (20.0-45.0) Monocytes (%) (Auto) 6.9 % (1.0-10.0) Eosinophils (%) (Auto) 0.8 % (0.0-3.0) Basophils (%) (Auto) 0.6 % (0.0-2.0) Sodium Level 146 MMOL/L (136-145) H Potassium Level 3.9 MMOL/L (3.5-5.1) Chloride Level 117 MMOL/L (98-107) H Carbon Dioxide Level 18 MMOL/L (21-32) L Anion Gap 11 mmol/L (5-15) Blood Urea Nitrogen 14 mg/dL (7-18) Creatinine 0.9 MG/DL (0.55-1.30) Estimat Glomerular Filtration Rate mL/min (>60) Glucose Level 98 MG/DL (74-106) Calcium Level 7.7 MG/DL (8.5-10.1) L Phosphorus Level 2.8 MG/DL (2.5-4.9) Magnesium Level 1.8 MG/DL (1.8-2.4) Total Bilirubin 0.2 MG/DL (0.2-1.0) Direct Bilirubin < 0.1 MG/DL (0.0-0.3) Aspartate Amino Transf (AST/SGOT) 19 U/L (15-37) Alanine Aminotransferase (ALT/SGPT) 20 U/L (12-78) Alkaline Phosphatase 69 U/L (46-116) Total Protein 6.7 G/DL (6.4-8.2) Albumin 2.8 G/DL (3.4-5.0) L Height (Feet): 5 Height (Inches): 11.00 Weight (Pounds): 181 General Appearance: WD/WN, no apparent distress, alert, thin Cardiovascular: normal rate Respiratory/Chest: normal breath sounds, no respiratory distress Abdominal Exam: normal bowel sounds, non tender, soft Extremities: non-tender Cristina Galloway SCREEN MAKING SUPERVISOR Dec 23, 2018 10:59
[2018-12-23 12:00] VITALS: BP 151/78
--- NOTE | 2018-12-23 13:27 | General Progress Note ---
Assessment/Plan Problem List: (1) Hypokalemia ICD Codes: E87.6 - Hypokalemia SNOMED: 25025520 (2) Ileus ICD Codes: K56.7 - Ileus, unspecified SNOMED: 887336691 (3) Gastroparesis ICD Codes: K31.84 - Gastroparesis SNOMED: 684422236 (4) Sigmoid volvulus ICD Codes: K56.2 - Volvulus SNOMED: 990330639 (5) HTN (hypertension) ICD Codes: I10 - Essential (primary) hypertension SNOMED: 91041485 Status: progressing Assessment/Plan s/p volvulos positive bowel sounds still distended abdomen although somewhat better reequires high dose of kcl k is normalized reglan and rectal tube per dr anderson Subjective ROS Limited/Unobtainable: Yes Allergies: Coded Allergies: No Known Allergies (Unverified , 04/22/17) Objective Last 24 Hour Vital Signs Date Time Temp Pulse Resp B/P (MAP) Pulse Ox O2 Delivery O2 Flow Rate FiO2 12/23/18 12:00 60 12/23/18 12:00 97.0 61 20 151/78 (102) 100 12/23/18 10:02 63 146/68 12/23/18 09:00 Room Air 12/23/18 08:00 97.1 63 20 146/68 (94) 100 12/23/18 08:00 61 12/23/18 05:28 144/68 12/23/18 03:49 98.0 61 18 144/68 (93) 100 12/23/18 03:35 74 12/23/18 00:36 62 12/23/18 00:00 98.4 62 18 154/73 (100) 99 12/22/18 23:23 64 12/22/18 21:00 Room Air 12/22/18 21:00 98.8 62 18 163/82 (109) 100 12/22/18 20:58 163/82 12/22/18 16:00 98.0 61 20 150/69 (96) 100 12/22/18 15:14 60 12/22/18 14:08 175/72 Intake and Output 12/22/18 12/23/18 19:00 07:00 Intake Total 1587.231 ml 550 ml Balance 1587.231 ml 550 ml Intake Oral 640 ml IV Total 947.231 ml 550 ml # Voids 3 # Bowel Movements 4 3 Laboratory Tests 12/23/18 04:00: White Blood Count 8.5, Red Blood Count 4.05L, Hemoglobin 12.6L, Hematocrit 38.3L , Mean Corpuscular Volume 95, Mean Corpuscular Hemoglobin 31.2H, Mean Corpuscular Hemoglobin Concent 32.9, Red Cell Distribution Width 12.8, Platelet Count 243, Mean Platelet Volume 6.8, Neutrophils (%) (Auto) 71.8, Lymphocytes (% ) (Auto) 20.0, Monocytes (%) (Auto) 6.9, Eosinophils (%) (Auto) 0.8, Basophils ( %) (Auto) 0.6, Sodium Level 146H, Potassium Level 3.9, Chloride Level 117H, Carbon Dioxide Level 18L, Anion Gap 11, Blood Urea Nitrogen 14, Creatinine 0.9, Estimat Glomerular Filtration Rate , Glucose Level 98, Calcium Level 7.7L, Phosphorus Level 2.8, Magnesium Level 1.8, Total Bilirubin 0.2, Direct Bilirubin < 0.1, Aspartate Amino Transf (AST/SGOT) 19, Alanine Aminotransferase (ALT/SGPT) 20, Alkaline Phosphatase 69, Total Protein 6.7, Albumin 2.8L Height (Feet): 5 Height (Inches): 11.00 Weight (Pounds): 153 Neck: supple Cardiovascular: normal rate Abdomen: distended Jose Francisco Chand MD Dec 23, 2018 13:27
--- NOTE | 2018-12-23 15:24 | Surgery Progress Note ---
Surgery Progress Note Subjective Symptoms: tolerating diet, voiding well, passing flatus, BM Additional Comments no acute events. states he feels well. +loose BM. K improved. Objective Last 24 Hour Vital Signs Date Time Temp Pulse Resp B/P (MAP) Pulse Ox O2 Delivery O2 Flow Rate FiO2 12/23/18 13:26 151/78 12/23/18 12:00 60 12/23/18 12:00 97.0 61 20 151/78 (102) 100 12/23/18 10:02 63 146/68 12/23/18 09:00 Room Air 12/23/18 08:00 97.1 63 20 146/68 (94) 100 12/23/18 08:00 61 12/23/18 05:28 144/68 12/23/18 03:49 98.0 61 18 144/68 (93) 100 12/23/18 03:35 74 12/23/18 00:36 62 12/23/18 00:00 98.4 62 18 154/73 (100) 99 12/22/18 23:23 64 12/22/18 21:00 Room Air 12/22/18 21:00 98.8 62 18 163/82 (109) 100 12/22/18 20:58 163/82 12/22/18 16:00 98.0 61 20 150/69 (96) 100 I&O Intake and Output 12/22/18 12/23/18 19:00 07:00 Intake Total 1587.231 ml 550 ml Balance 1587.231 ml 550 ml Intake Oral 640 ml IV Total 947.231 ml 550 ml # Voids 3 # Bowel Movements 4 3 Cardiovascular: RSR Respiratory: clear Abdomen: soft, distended, non-tender, present bowel sounds, decreased bowel sounds Extremities: no tenderness, no cyanosis Laboratory Tests Test 12/23/18 04:00 White Blood Count 8.5 K/UL (4.8-10.8) Red Blood Count 4.05 M/UL (4.70-6.10) L Hemoglobin 12.6 G/DL (14.2-18.0) L Hematocrit 38.3 % (42.0-52.0) L Mean Corpuscular Volume 95 FL (80-99) Mean Corpuscular Hemoglobin 31.2 PG (27.0-31.0) H Mean Corpuscular Hemoglobin Concent 32.9 G/DL (32.0-36.0) Red Cell Distribution Width 12.8 % (11.6-14.8) Platelet Count 243 K/UL (150-450) Mean Platelet Volume 6.8 FL (6.5-10.1) Neutrophils (%) (Auto) 71.8 % (45.0-75.0) Lymphocytes (%) (Auto) 20.0 % (20.0-45.0) Monocytes (%) (Auto) 6.9 % (1.0-10.0) Eosinophils (%) (Auto) 0.8 % (0.0-3.0) Basophils (%) (Auto) 0.6 % (0.0-2.0) Sodium Level 146 MMOL/L (136-145) H Potassium Level 3.9 MMOL/L (3.5-5.1) Chloride Level 117 MMOL/L (98-107) H Carbon Dioxide Level 18 MMOL/L (21-32) L Anion Gap 11 mmol/L (5-15) Blood Urea Nitrogen 14 mg/dL (7-18) Creatinine 0.9 MG/DL (0.55-1.30) Estimat Glomerular Filtration Rate mL/min (>60) Glucose Level 98 MG/DL (74-106) Calcium Level 7.7 MG/DL (8.5-10.1) L Phosphorus Level 2.8 MG/DL (2.5-4.9) Magnesium Level 1.8 MG/DL (1.8-2.4) Total Bilirubin 0.2 MG/DL (0.2-1.0) Direct Bilirubin < 0.1 MG/DL (0.0-0.3) Aspartate Amino Transf (AST/SGOT) 19 U/L (15-37) Alanine Aminotransferase (ALT/SGPT) 20 U/L (12-78) Alkaline Phosphatase 69 U/L (46-116) Total Protein 6.7 G/DL (6.4-8.2) Albumin 2.8 G/DL (3.4-5.0) L Plan Problems: (1) Ileus (2) Sigmoid volvulus Assessment & Plan: 78 year old male with concerns of sigmoid volvulus. afebrile, HD stable, abnormal electrolytes, distended, tympanic, no abd pain. states he is having flatus now. pending final results of barium enema but from report likely has colonic ileus does not seem to clinically have sigmoid volvulus and CT reviewed and more consistent with ileus. Remains very distended, tympanic, non tender. afebrile, HD stable, no leukocytosis hypo K okay for diet iv fluids replace electrolytes trend labs will follow with serial exams given colonoscopy findings, exam, kub results, labs, and clinical course there is consideration for colectomy. I discussed this option with patient. he states he needs to talk with his family first. had not talked to family yet. spoke with patient today. states he does not want surgery. c diff negative otherwise stable. discharge planning Chava Smith Dec 23, 2018 15:24
[2018-12-23 16:00] VITALS: BP 129/68
--- NOTE | 2018-12-23 19:30 | NUR ---
NURSE NOTES: Received report from Adam Matson RN. Pt is sitting up in bed in stable condition. Pt is awake, alert, and oriented x3 with some noted confusion. Pt is on room air and breathing is even and unlabored. No acute distress noted. IV site is R upper arm PICC line and both site and dressing are asymptomatic, patent, and intact and running IV fluids at rx rate. Bed is placed in lowest position with brake engaged, side rails up x3, and bed alarm on. Call light and side table placed within reach. Will continue to monitor.
--- NOTE | 2018-12-23 19:45 | NUR ---
HAND-OFF: Report given to ANA PAULA Christie.
[2018-12-23 20:00] VITALS: BP 98/58
[2018-12-23] MEDS: Dyna-Hex 2% Top Sol 2oz TOPIC SCH (20:41)
[2018-12-24] VITALS: BP 159/74
[2018-12-24 04:00] VITALS: BP 117/59
[2018-12-24 05:00] LABS: ALANINE AMINOTRANSFERASE 23 U/L (12-78); ALBUMIN 2.9 G/DL (3.4-5.0); ALBUMIN/GLOBULIN RATIO 0.8 (1.0-2.7); ALKALINE PHOSPHATASE 65 U/L (46-116); ANION GAP 13 mmol/L (5-15); ASPARTATE AMINO TRANSFERASE 15 U/L (15-37); BILIRUBIN,TOTAL 0.4 MG/DL (0.2-1.0); BLOOD UREA NITROGEN 14 mg/dL (7-18); CALCIUM 8.1 MG/DL (8.5-10.1); CARBON DIOXIDE 18 MMOL/L (21-32); CHLORIDE 119 MMOL/L (98-107); CREATININE 1.1 MG/DL (0.55-1.30); PHOSPHORUS 2.3 MG/DL (2.5-4.9); POTASSIUM 3.3 MMOL/L (3.5-5.1); SODIUM 150 MMOL/L (136-145)
[2018-12-24] MEDS: HydrALAZINE 25mg tab ORAL SCH ×2 (05:43→13:14)
[2018-12-24] MEDS: Spironolactone 50mg tab ORAL SCH ×3 (05:44→21:36)
[2018-12-24] MEDS: NovoLOG Insulin Flexpen SUBQ SCH ×4 (06:23→20:52)
--- NOTE | 2018-12-24 07:24 | NUR ---
NURSE NOTES: Pt received from Shahnaz GOSS, currently resting in bed with no acute s/s of distress. PICC Line asymptomatic and patent, with no acute s/s of bleeding or swelling. Bed in lowest position, call light and belongings within reach.
--- NOTE | 2018-12-24 07:26 | NUR ---
HAND-OFF: Report given to Adam Matson RN. Pt is resting in bed in stable condition. No acute distress noted. Endorsed plan of care.
[2018-12-24 08:00] VITALS: BP_SYST 126; BP_SYST 139; BP_DIAS 57; BP_DIAS 64
[2018-12-24] MEDS: Mesalamine 400mg cap ORAL SCH ×3 (09:39→17:37)
[2018-12-24] MEDS: Octreotide Acetate 500 MCG in Sodium Chloride 499 ML IV SCH ×2 (09:40→18:00)
[2018-12-24] MEDS ORDERED: Potassium Phosphate 20 MM in NS 275 ML IV ONE ×4 (10:00)
--- NOTE | 2018-12-24 10:20 | Nephrology Progress Note ---
Assessment/Plan Problem List: (1) Hypokalemia Assessment: persistant (2) UTI (urinary tract infection) (3) HTN (hypertension) (4) Ileus Assessment Low K Volvolus Anemia hypothyroid HTN BPH Dementia DM Plan Per GI- D5W adjust BP meds Trial of Somatostatin and ASACOL K supplement IV and PO PO Aldactone increase dose Hydralazine for BP add Reglan change Rocephin to Cefepime, Pseudomonas UTI TSH wnl clear liquids IV hydrate discussed with RN Subjective ROS Limited/Unobtainable: No Constitutional: Reports: malaise Objective Objective Last 24 Hour Vital Signs Date Time Temp Pulse Resp B/P (MAP) Pulse Ox O2 Delivery O2 Flow Rate FiO2 12/24/18 05:43 117/59 12/24/18 04:00 98.8 67 20 117/59 (78) 98 12/24/18 04:00 68 12/24/18 00:00 97.7 62 20 159/74 (102) 100 12/24/18 00:00 60 12/23/18 22:00 98/58 12/23/18 21:00 Room Air 12/23/18 20:00 97.7 69 20 98/58 (71) 98 12/23/18 20:00 60 12/23/18 16:00 97.7 62 20 129/68 (88) 99 12/23/18 16:00 60 12/23/18 13:26 151/78 12/23/18 12:00 60 12/23/18 12:00 97.0 61 20 151/78 (102) 100 Intake and Output 12/23/18 12/24/18 19:00 07:00 # Voids 4 3 # Bowel Movements 2 1 Laboratory Tests 12/24/18 04:30: Sodium Level 150H, Potassium Level 3.3L, Chloride Level 119H, Carbon Dioxide Level 18L, Anion Gap 13, Blood Urea Nitrogen 14, Creatinine 1.1, Estimat Glomerular Filtration Rate , Glucose Level 105, Calcium Level 8.1L, Phosphorus Level 2.3L, Magnesium Level 1.9, Total Bilirubin 0.4, Aspartate Amino Transf ( AST/SGOT) 15, Alanine Aminotransferase (ALT/SGPT) 23, Alkaline Phosphatase 65, Total Protein 6.6, Albumin 2.9L, Globulin 3.7, Albumin/Globulin Ratio 0.8L Height (Feet): 5 Height (Inches): 11.00 Weight (Pounds): 153 General Appearance: no apparent distress Cardiovascular: normal rate Respiratory/Chest: lungs clear Abdomen: soft, distended Objective no change Herve Marshall MD Dec 24, 2018 10:20
--- NOTE | 2018-12-24 10:57 | GI Progress Note ---
Assessment/Plan Problems: (1) Sigmoid volvulus ICD Codes: K56.2 - Volvulus SNOMED: 454110375 (2) Gastroparesis ICD Codes: K31.84 - Gastroparesis SNOMED: 621046066 (3) Ileus ICD Codes: K56.7 - Ileus, unspecified SNOMED: 478507489 (4) Anemia ICD Codes: D64.9 - Anemia, unspecified SNOMED: 304600416 (5) Diabetes mellitus ICD Codes: E11.9 - Type 2 diabetes mellitus without complications SNOMED: 75634443 Status: stable, unchanged Status Narrative Discussed with Dr. Ortiz Assessment/Plan Assessment - chronic abd distention - anemia - DM - Hypothyroid - severe hypokalemia - hx of carcinomas chronic colonic ileus SUMMARY OF FINDINGS: 1. Incomplete colonoscopy examination. 2. An area of edema at about 30 cm from the anal verge causing a kind of colonic outlet obstruction, status post biopsy of this area. Also status post biopsy of the sigmoid colon with some inflammation. 3. Severe colonic dilation and ileus, status post decompression, almost 3600 mL of fluid was aspirated in this procedure. Biopsy shows mild active colitis RECOMMENDATIONS: The patient requires turn every 2 hours Serial imaging as needed Aldactone to 100 advance diet Continue mesalamine Electrolyte replacement per nephro abd exam is much better recommending holding surg for now dc planning The patient was seen and examined at bedside and all new and available data was reviewed in the patients chart. I agree with the above findings, impression and plan. (Patient seen earlier today. Signature stamp does not reflect patient encounter time.). - Tavares Ortiz MD Subjective Subjective Abdominal distention Patient overall feels better Objective Last 24 Hour Vital Signs Date Time Temp Pulse Resp B/P (MAP) Pulse Ox O2 Delivery O2 Flow Rate FiO2 12/24/18 05:43 117/59 12/24/18 04:00 98.8 67 20 117/59 (78) 98 12/24/18 04:00 68 12/24/18 00:00 97.7 62 20 159/74 (102) 100 12/24/18 00:00 60 12/23/18 22:00 98/58 12/23/18 21:00 Room Air 12/23/18 20:00 97.7 69 20 98/58 (71) 98 12/23/18 20:00 60 12/23/18 16:00 97.7 62 20 129/68 (88) 99 12/23/18 16:00 60 12/23/18 13:26 151/78 12/23/18 12:00 60 12/23/18 12:00 97.0 61 20 151/78 (102) 100 Intake and Output 12/23/18 12/24/18 19:00 07:00 # Voids 4 3 # Bowel Movements 2 1 Laboratory Tests Test 12/24/18 04:30 Sodium Level 150 MMOL/L (136-145) H Potassium Level 3.3 MMOL/L (3.5-5.1) L Chloride Level 119 MMOL/L (98-107) H Carbon Dioxide Level 18 MMOL/L (21-32) L Anion Gap 13 mmol/L (5-15) Blood Urea Nitrogen 14 mg/dL (7-18) Creatinine 1.1 MG/DL (0.55-1.30) Estimat Glomerular Filtration Rate mL/min (>60) Glucose Level 105 MG/DL (74-106) Calcium Level 8.1 MG/DL (8.5-10.1) L Phosphorus Level 2.3 MG/DL (2.5-4.9) L Magnesium Level 1.9 MG/DL (1.8-2.4) Total Bilirubin 0.4 MG/DL (0.2-1.0) Aspartate Amino Transf (AST/SGOT) 15 U/L (15-37) Alanine Aminotransferase (ALT/SGPT) 23 U/L (12-78) Alkaline Phosphatase 65 U/L (46-116) Total Protein 6.6 G/DL (6.4-8.2) Albumin 2.9 G/DL (3.4-5.0) L Globulin 3.7 g/dL Albumin/Globulin Ratio 0.8 (1.0-2.7) L Height (Feet): 5 Height (Inches): 11.00 Weight (Pounds): 153 General Appearance: WD/WN, no apparent distress, alert Cardiovascular: normal rate Respiratory/Chest: normal breath sounds, no respiratory distress Abdominal Exam: normal bowel sounds, non tender, soft, distended Extremities: non-tender Objective Reported diarrhea Cristina Galloway NAPPER GRINDER Dec 24, 2018 10:57
[2018-12-24 12:00] VITALS: BP 126/64
--- NOTE | 2018-12-24 13:53 | NUR ---
TRANSFER TO FLOOR: Patient transferred to 411-2, per Dr. Chand. Report given to ANA PAULA Salomon. Belongings and medications given to ANA PAULA Salomon. Family and or S/O informed of transfer.
[2018-12-24] MEDS ORDERED: HydrALAZINE 50mg tab ORAL SCH (14:00)
[2018-12-24] MEDS ORDERED: Spironolactone 50mg tab ORAL SCH (14:00)
[2018-12-24 16:00] VITALS: BP 127/74
--- NOTE | 2018-12-24 16:26 | Surgery Progress Note ---
Surgery Progress Note Subjective Additional Comments No acute events. Abdomen distended but soft. Loose bowel movements. Passing flatus. Tolerating diet. Labs noted. Potassium improved. Sodium elevated. Objective Last 24 Hour Vital Signs Date Time Temp Pulse Resp B/P (MAP) Pulse Ox O2 Delivery O2 Flow Rate FiO2 12/24/18 13:14 116/64 12/24/18 12:00 60 12/24/18 12:00 98.1 83 20 126/64 (84) 98 12/24/18 09:00 Room Air 12/24/18 08:00 68 12/24/18 08:00 98.0 61 20 139/57 (84) 100 12/24/18 05:43 117/59 12/24/18 04:00 98.8 67 20 117/59 (78) 98 12/24/18 04:00 68 12/24/18 00:00 97.7 62 20 159/74 (102) 100 12/24/18 00:00 60 12/23/18 22:00 98/58 12/23/18 21:00 Room Air 12/23/18 20:00 97.7 69 20 98/58 (71) 98 12/23/18 20:00 60 I&O Intake and Output 12/23/18 12/24/18 19:00 07:00 # Voids 4 3 # Bowel Movements 2 1 Drains: none Cardiovascular: RSR Respiratory: clear Abdomen: soft, flat, distended, non-tender, decreased bowel sounds Extremities: no tenderness, no cyanosis Laboratory Tests Test 12/24/18 04:30 Sodium Level 150 MMOL/L (136-145) H Potassium Level 3.3 MMOL/L (3.5-5.1) L Chloride Level 119 MMOL/L (98-107) H Carbon Dioxide Level 18 MMOL/L (21-32) L Anion Gap 13 mmol/L (5-15) Blood Urea Nitrogen 14 mg/dL (7-18) Creatinine 1.1 MG/DL (0.55-1.30) Estimat Glomerular Filtration Rate mL/min (>60) Glucose Level 105 MG/DL (74-106) Calcium Level 8.1 MG/DL (8.5-10.1) L Phosphorus Level 2.3 MG/DL (2.5-4.9) L Magnesium Level 1.9 MG/DL (1.8-2.4) Total Bilirubin 0.4 MG/DL (0.2-1.0) Aspartate Amino Transf (AST/SGOT) 15 U/L (15-37) Alanine Aminotransferase (ALT/SGPT) 23 U/L (12-78) Alkaline Phosphatase 65 U/L (46-116) Total Protein 6.6 G/DL (6.4-8.2) Albumin 2.9 G/DL (3.4-5.0) L Globulin 3.7 g/dL Albumin/Globulin Ratio 0.8 (1.0-2.7) L Plan Problems: (1) Ileus (2) Sigmoid volvulus Assessment & Plan: 78 year old male with concerns of sigmoid volvulus. afebrile, HD stable, abnormal electrolytes, distended, tympanic, no abd pain. states he is having flatus now. pending final results of barium enema but from report likely has colonic ileus does not seem to clinically have sigmoid volvulus and CT reviewed and more consistent with ileus. Remains very distended, tympanic, non tender. afebrile, HD stable, no leukocytosis hypo K okay for diet iv fluids replace electrolytes trend labs will follow with serial exams given colonoscopy findings, exam, kub results, labs, and clinical course there is consideration for colectomy. I discussed this option with patient. he states he needs to talk with his family first. had not talked to family yet. spoke with patient today. states he does not want surgery. c diff negative otherwise stable. discharge planning Chava Smith Dec 24, 2018 16:26
--- NOTE | 2018-12-24 19:00 | General Progress Note ---
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 - we can't assess PAC/PRA as long as on Aldactone - continue Aldactone 50 mg tid continue NISS Subjective ROS Limited/Unobtainable: Yes Allergies: Coded Allergies: No Known Allergies (Unverified , 04/22/17) Subjective events noted Item Value Date Time Bedside Blood Glucose 75 mg/dl 12/24/18 1659 Bedside Blood Glucose 143 mg/dl H 12/24/18 1229 Bedside Blood Glucose 101 mg/dl 12/24/18 0624 Bedside Blood Glucose 121 mg/dl H 12/23/18 2100 Bedside Blood Glucose 99 mg/dl 12/23/18 1630 Objective Last 24 Hour Vital Signs Date Time Temp Pulse Resp B/P (MAP) Pulse Ox O2 Delivery O2 Flow Rate FiO2 12/24/18 16:00 97.0 74 20 127/74 (91) 96 12/24/18 13:14 116/64 12/24/18 12:00 60 12/24/18 12:00 98.1 83 20 126/64 (84) 98 12/24/18 09:00 Room Air 12/24/18 08:00 68 12/24/18 08:00 98.0 61 20 139/57 (84) 100 12/24/18 05:43 117/59 12/24/18 04:00 98.8 67 20 117/59 (78) 98 12/24/18 04:00 68 12/24/18 00:00 97.7 62 20 159/74 (102) 100 12/24/18 00:00 60 12/23/18 22:00 98/58 12/23/18 21:00 Room Air 12/23/18 20:00 97.7 69 20 98/58 (71) 98 12/23/18 20:00 60 Intake and Output 12/23/18 12/24/18 19:00 07:00 # Voids 4 3 # Bowel Movements 2 1 Laboratory Tests 12/24/18 04:30: Sodium Level 150H, Potassium Level 3.3L, Chloride Level 119H, Carbon Dioxide Level 18L, Anion Gap 13, Blood Urea Nitrogen 14, Creatinine 1.1, Estimat Glomerular Filtration Rate , Glucose Level 105, Calcium Level 8.1L, Phosphorus Level 2.3L, Magnesium Level 1.9, Total Bilirubin 0.4, Aspartate Amino Transf ( AST/SGOT) 15, Alanine Aminotransferase (ALT/SGPT) 23, Alkaline Phosphatase 65, Total Protein 6.6, Albumin 2.9L, Globulin 3.7, Albumin/Globulin Ratio 0.8L Height (Feet): 5 Height (Inches): 11.00 Weight (Pounds): 153 General Appearance: no apparent distress Neck: normal alignment Cardiovascular: normal rate Respiratory/Chest: decreased breath sounds Abdomen: normal bowel sounds Objective Current Medications Medications (Trade) Dose Ordered Sig/Kevin Route PRN Reason Start Time Stop Time Status Last Admin Dose Admin Acetaminophen (Tylenol) 650 mg Q4H PRN ORAL Mild Pain/Temp > 100.5 12/24/18 14:00 01/10/19 13:59 Chlorhexidine Gluconate (Alejandrina-Hex 2%) 1 applic DAILY@1999 TOPIC 12/24/18 20:00 01/17/19 19:59 Dextrose (Dextrose 50%) 25 ml Q30M PRN IV Hypoglycemia 12/24/18 14:30 01/16/19 02:29 Dextrose (Dextrose 50%) 50 ml Q30M PRN IV Hypoglycemia 12/24/18 14:30 01/16/19 02:29 Hydralazine HCl (Apresoline) 75 mg Q8HR ORAL 12/24/18 22:00 01/23/19 21:59 Insulin Aspart (NovoLOG) BEFORE MEALS AND HS SUBQ 12/24/18 16:30 01/16/19 06:29 Mesalamine (Asacol) 1,600 mg THREE TIMES A DAY ORAL 12/24/18 18:00 01/18/19 12:59 12/24/18 17:37 Octreotide Acetate 500 mcg/ Sodium Chloride 500 ml @ 50 mls/hr Q10H IV 12/24/18 19:00 01/20/19 18:59 12/24/18 18:00 Ondansetron HCl (Zofran) 4 mg Q6H PRN IVP Nausea & Vomiting 12/24/18 14:00 01/13/19 13:59 Potassium Chloride (K-Dur) 40 meq TID ORAL 12/24/18 18:00 01/14/19 08:59 12/24/18 17:37 Spironolactone (Aldactone) 50 mg Q8HR ORAL 12/24/18 22:00 01/23/19 21:59 Rodriguez Mata MD Dec 24, 2018 19:00
--- NOTE | 2018-12-24 19:28 | NUR ---
HAND-OFF: Report given to Taina GOSS.
--- NOTE | 2018-12-24 19:40 | NUR ---
NURSE NOTES: Received patient in bed in, awake, verbally responsive. No acute respiratory distress noted. No complaints of pain at this time. PICC line double lumen in right upper arm in place. Bed in lowest position, call light within reach, and bed alarm on. Will continue to monitor.
--- NOTE | 2018-12-24 19:53 | NUR ---
PROCESS INSPECTOR Co-Signature Notes: Reviewed patient's chart. Reviewed and approved PROCESS INSPECTOR notes. Addendum: 12/24/18 at 1954 by MG BOX PT Amended: Links added.
--- NOTE | 2018-12-24 19:54 | NUR ---
SITE SAFETY COORDINATOR Co-Signature Notes: Reviewed patient's chart. Reviewed and approved SITE SAFETY COORDINATOR notes. Addendum: 12/24/18 at 1954 by MG BOX PT Amended: Links added.
[2018-12-24 20:09] VITALS: BP 151/67
[2018-12-24] MEDS: Dyna-Hex 2% Top Sol 2oz TOPIC SCH (20:19)
[2018-12-24] MEDS: HydrALAZINE 50mg tab ORAL SCH (21:35)
--- NOTE | 2018-12-24 22:01 | General Progress Note ---
Assessment/Plan Problem List: (1) Hypokalemia ICD Codes: E87.6 - Hypokalemia SNOMED: 52492825 (2) Ileus ICD Codes: K56.7 - Ileus, unspecified SNOMED: 274000251 (3) Gastroparesis ICD Codes: K31.84 - Gastroparesis SNOMED: 716023092 (4) Sigmoid volvulus ICD Codes: K56.2 - Volvulus SNOMED: 412502732 (5) HTN (hypertension) ICD Codes: I10 - Essential (primary) hypertension SNOMED: 30232250 Status: progressing Assessment/Plan s/p volvulos positive bowel sounds still distended abdomen although somewhat better requires high dose of kcl k is normalized reglan and rectal tube per dr monica dillon historian afebrile positive bowel sounds Subjective ROS Limited/Unobtainable: Yes Allergies: Coded Allergies: No Known Allergies (Unverified , 04/22/17) Objective Last 24 Hour Vital Signs Date Time Temp Pulse Resp B/P (MAP) Pulse Ox O2 Delivery O2 Flow Rate FiO2 12/24/18 21:35 151/67 12/24/18 20:56 Room Air 12/24/18 20:09 97.6 61 19 151/67 (95) 100 12/24/18 16:00 97.0 74 20 127/74 (91) 96 12/24/18 13:14 116/64 12/24/18 12:00 60 12/24/18 12:00 98.1 83 20 126/64 (84) 98 12/24/18 09:00 Room Air 12/24/18 08:00 68 12/24/18 08:00 98.0 61 20 139/57 (84) 100 12/24/18 05:43 117/59 12/24/18 04:00 98.8 67 20 117/59 (78) 98 12/24/18 04:00 68 12/24/18 00:00 97.7 62 20 159/74 (102) 100 12/24/18 00:00 60 Intake and Output 12/23/18 12/24/18 19:00 07:00 # Voids 4 3 # Bowel Movements 2 1 Laboratory Tests 12/24/18 04:30: Sodium Level 150H, Potassium Level 3.3L, Chloride Level 119H, Carbon Dioxide Level 18L, Anion Gap 13, Blood Urea Nitrogen 14, Creatinine 1.1, Estimat Glomerular Filtration Rate , Glucose Level 105, Calcium Level 8.1L, Phosphorus Level 2.3L, Magnesium Level 1.9, Total Bilirubin 0.4, Aspartate Amino Transf ( AST/SGOT) 15, Alanine Aminotransferase (ALT/SGPT) 23, Alkaline Phosphatase 65, Total Protein 6.6, Albumin 2.9L, Globulin 3.7, Albumin/Globulin Ratio 0.8L Height (Feet): 5 Height (Inches): 11.00 Weight (Pounds): 153 Cardiovascular: normal rate Respiratory/Chest: lungs clear Abdomen: soft Jose Francisco Chand MD Dec 24, 2018 22:01
[2018-12-25 00:08] VITALS: BP 144/69
[2018-12-25 04:13] VITALS: BP 159/73
[2018-12-25] MEDS: Octreotide Acetate 500 MCG in Sodium Chloride 499 ML IV SCH (04:39)
[2018-12-25] MEDS: HydrALAZINE 50mg tab ORAL SCH ×3 (05:26→22:31)
[2018-12-25] MEDS: Spironolactone 50mg tab ORAL SCH ×3 (05:26→20:40)
[2018-12-25] MEDS: NovoLOG Insulin Flexpen SUBQ SCH ×4 (05:31→20:41)
--- NOTE | 2018-12-25 06:08 | NUR ---
NURSE NOTES: Patient cleaned, repositioned, v/s stable.
[2018-12-25 06:29] LABS: BASOPHILS % (AUTO) 0.9 % (0.0-2.0); EOSINOPHILS % (AUTO) 1.4 % (0.0-3.0); HEMATOCRIT 38.1 % (42.0-52.0); HEMOGLOBIN 12.3 G/DL (14.2-18.0); LYMPHOCYTES % (AUTO) 22.1 % (20.0-45.0); MEAN CORPUSCULAR VOLUME 95 FL (80-99); MONOCYTES % (AUTO) 7.4 % (1.0-10.0); NEUTROPHILS % (AUTO) 68.3 % (45.0-75.0); PLATELET COUNT 226 K/UL (150-450); RED BLOOD COUNT 4.01 M/UL (4.70-6.10); RED CELL DISTRIBUTION WIDTH 13.2 % (11.6-14.8); WHITE BLOOD COUNT 7.3 K/UL (4.8-10.8)
[2018-12-25 06:53] LABS: ANION GAP 11 mmol/L (5-15); BLOOD UREA NITROGEN 11 mg/dL (7-18); CALCIUM 8.3 MG/DL (8.5-10.1); CARBON DIOXIDE 17 MMOL/L (21-32); CHLORIDE 118 MMOL/L (98-107); PHOSPHORUS 2.1 MG/DL (2.5-4.9); SODIUM 146 MMOL/L (136-145)
--- NOTE | 2018-12-25 06:55 | General Progress Note ---
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 - we can't assess PAC/PRA as long as on Aldactone - continue Aldactone 50 mg tid continue NISS Subjective ROS Limited/Unobtainable: Yes Allergies: Coded Allergies: No Known Allergies (Unverified , 04/22/17) Subjective events noted Item Value Date Time Bedside Blood Glucose 77 mg/dl 12/25/18 0531 Bedside Blood Glucose 144 mg/dl H 12/24/18 2052 Bedside Blood Glucose 75 mg/dl 12/24/18 1659 Bedside Blood Glucose 143 mg/dl H 12/24/18 1229 Bedside Blood Glucose 101 mg/dl 12/24/18 0624 Objective Last 24 Hour Vital Signs Date Time Temp Pulse Resp B/P (MAP) Pulse Ox O2 Delivery O2 Flow Rate FiO2 12/25/18 05:26 159/73 12/25/18 04:13 97.9 61 19 159/73 (101) 100 12/25/18 00:08 97.8 61 19 144/69 (94) 100 12/24/18 21:35 151/67 12/24/18 20:56 Room Air 12/24/18 20:09 97.6 61 19 151/67 (95) 100 12/24/18 16:00 97.0 74 20 127/74 (91) 96 12/24/18 13:14 116/64 12/24/18 12:00 60 12/24/18 12:00 98.1 83 20 126/64 (84) 98 12/24/18 09:00 Room Air 4/4/19 08:00 68 12/24/18 08:00 98.0 61 20 139/57 (84) 100 Intake and Output 12/24/18 12/25/18 18:59 06:59 Intake Total 650 ml Balance 650 ml Intake Oral 100 ml IV Total 550 ml # Voids 2 2 # Bowel Movements 3 1 Laboratory Tests 12/25/18 05:20: White Blood Count 7.3, Red Blood Count 4.01L, Hemoglobin 12.3L, Hematocrit 38.1L , Mean Corpuscular Volume 95, Mean Corpuscular Hemoglobin 30.6, Mean Corpuscular Hemoglobin Concent 32.2, Red Cell Distribution Width 13.2, Platelet Count 226, Mean Platelet Volume 6.0L, Neutrophils (%) (Auto) 68.3, Lymphocytes ( %) (Auto) 22.1, Monocytes (%) (Auto) 7.4, Eosinophils (%) (Auto) 1.4, Basophils (%) (Auto) 0.9, Sodium Level [Pending], Potassium Level [Pending], Chloride Level [Pending], Carbon Dioxide Level [Pending], Blood Urea Nitrogen [Pending], Creatinine [Pending], Estimat Glomerular Filtration Rate [Pending], Glucose Level [Pending], Calcium Level [Pending], Phosphorus Level [Pending], Magnesium Level [Pending] Height (Feet): 5 Height (Inches): 11.00 Weight (Pounds): 153 General Appearance: no apparent distress Neck: normal alignment Cardiovascular: normal rate Respiratory/Chest: normal breath sounds Abdomen: normal bowel sounds Objective Current Medications Medications (Trade) Dose Ordered Sig/Kevin Route PRN Reason Start Time Stop Time Status Last Admin Dose Admin Acetaminophen (Tylenol) 650 mg Q4H PRN ORAL Mild Pain/Temp > 100.5 12/24/18 14:00 01/10/19 13:59 Chlorhexidine Gluconate (Alejandrina-Hex 2%) 1 applic DAILY@1999 TOPIC 12/24/18 20:00 01/17/19 19:59 12/24/18 20:19 Dextrose (Dextrose 50%) 25 ml Q30M PRN IV Hypoglycemia 12/24/18 14:30 01/16/19 02:29 Dextrose (Dextrose 50%) 50 ml Q30M PRN IV Hypoglycemia 12/24/18 14:30 01/16/19 02:29 Hydralazine HCl (Apresoline) 75 mg Q8HR ORAL 12/24/18 22:00 01/23/19 21:59 12/25/18 05:26 Insulin Aspart (NovoLOG) BEFORE MEALS AND HS SUBQ 12/24/18 16:30 01/16/19 06:29 12/24/18 20:52 Mesalamine (Asacol) 1,600 mg THREE TIMES A DAY ORAL 12/24/18 18:00 01/18/19 12:59 12/24/18 17:37 Octreotide Acetate 500 mcg/ Sodium Chloride 500 ml @ 50 mls/hr Q10H IV 12/24/18 19:00 01/20/19 18:59 12/25/18 04:39 Ondansetron HCl (Zofran) 4 mg Q6H PRN IVP Nausea & Vomiting 12/24/18 14:00 01/13/19 13:59 Potassium Chloride (K-Dur) 40 meq TID ORAL 12/24/18 18:00 01/14/19 08:59 12/24/18 17:37 Spironolactone (Aldactone) 50 mg Q8HR ORAL 12/24/18 22:00 01/23/19 21:59 12/25/18 05:26 Rodriguez Mata MD Dec 25, 2018 06:55
--- NOTE | 2018-12-25 07:17 | NUR ---
HAND-OFF: Report given to SUMMER NORMAN RN.
--- NOTE | 2018-12-25 07:23 | NUR ---
NURSE NOTES: Patient received resting in bed, eating breakfast. Alert and oriented, breathing unlabored. Denies pain at this time. PICC line patent and intact. Bed locked in lowest position. Call light placed within reach, will continue to monitor.
[2018-12-25 08:00] VITALS: BP 130/63
[2018-12-25] MEDS: Mesalamine 400mg cap ORAL SCH ×3 (08:09→18:22)
[2018-12-25] MEDS ORDERED: Sodium Phosphate 30 MM in NS 275 ML IVPB ONE (09:00)
--- NOTE | 2018-12-25 11:32 | Surgery Progress Note ---
Surgery Progress Note Subjective Additional Comments No acute events. Patient awake and states he is comfortable today. His is at the bedside and has been informed of his medical condition and care plan. He is afebrile hemodynamically stable and otherwise comfortable. Abdomen still distended. Having loose bowel movements. Denies any pain or discomfort. Potassium improved. Electrolytes abnormal. Objective Last 24 Hour Vital Signs Date Time Temp Pulse Resp B/P (MAP) Pulse Ox O2 Delivery O2 Flow Rate FiO2 12/25/18 09:00 Room Air 12/25/18 08:00 97.8 60 17 130/63 (85) 100 12/25/18 05:26 159/73 12/25/18 04:13 97.9 61 19 159/73 (101) 100 12/25/18 00:08 97.8 61 19 144/69 (94) 100 12/24/18 21:35 151/67 12/24/18 20:56 Room Air 12/24/18 20:09 97.6 61 19 151/67 (95) 100 12/24/18 16:00 97.0 74 20 127/74 (91) 96 12/24/18 13:14 116/64 12/24/18 12:00 60 12/24/18 12:00 98.1 83 20 126/64 (84) 98 I&O Intake and Output 12/24/18 12/25/18 18:59 06:59 Intake Total 650 ml Balance 650 ml Intake Oral 100 ml IV Total 550 ml # Voids 2 2 # Bowel Movements 3 1 Cardiovascular: RSR Respiratory: clear Abdomen: soft, distended, non-tender, present bowel sounds Extremities: no tenderness, no cyanosis Laboratory Tests Test 12/25/18 05:20 White Blood Count 7.3 K/UL (4.8-10.8) Red Blood Count 4.01 M/UL (4.70-6.10) L Hemoglobin 12.3 G/DL (14.2-18.0) L Hematocrit 38.1 % (42.0-52.0) L Mean Corpuscular Volume 95 FL (80-99) Mean Corpuscular Hemoglobin 30.6 PG (27.0-31.0) Mean Corpuscular Hemoglobin Concent 32.2 G/DL (32.0-36.0) Red Cell Distribution Width 13.2 % (11.6-14.8) Platelet Count 226 K/UL (150-450) Mean Platelet Volume 6.0 FL (6.5-10.1) L Neutrophils (%) (Auto) 68.3 % (45.0-75.0) Lymphocytes (%) (Auto) 22.1 % (20.0-45.0) Monocytes (%) (Auto) 7.4 % (1.0-10.0) Eosinophils (%) (Auto) 1.4 % (0.0-3.0) Basophils (%) (Auto) 0.9 % (0.0-2.0) Sodium Level 146 MMOL/L (136-145) H Potassium Level 4.0 MMOL/L (3.5-5.1) Chloride Level 118 MMOL/L (98-107) H Carbon Dioxide Level 17 MMOL/L (21-32) L Anion Gap 11 mmol/L (5-15) Blood Urea Nitrogen 11 mg/dL (7-18) Creatinine 1.0 MG/DL (0.55-1.30) Estimat Glomerular Filtration Rate mL/min (>60) Glucose Level 84 MG/DL (74-106) Calcium Level 8.3 MG/DL (8.5-10.1) L Phosphorus Level 2.1 MG/DL (2.5-4.9) L Magnesium Level 1.8 MG/DL (1.8-2.4) Plan Problems: (1) Ileus (2) Sigmoid volvulus Assessment & Plan: 78 year old male with concerns of sigmoid volvulus. afebrile, HD stable, abnormal electrolytes, distended, tympanic, no abd pain. states he is having flatus now. does not seem to clinically have sigmoid volvulus and CT reviewed and more consistent with ileus. Remains very distended, tympanic, non tender. afebrile, HD stable, no leukocytosis hypo K okay for diet iv fluids replace electrolytes trend labs will follow with serial exams given colonoscopy findings, exam, kub results, labs, and clinical course there is consideration for colectomy. I discussed this option with patient. he states he needs to talk with his family first. had not talked to family yet. spoke with patient today. states he does not want surgery. c diff negative otherwise stable. discharge planning Chava Smith Dec 25, 2018 11:32
[2018-12-25 12:00] VITALS: BP 127/70
--- NOTE | 2018-12-25 12:28 | GI Progress Note ---
Assessment/Plan Problems: (1) Sigmoid volvulus ICD Codes: K56.2 - Volvulus SNOMED: 945627446 (2) Gastroparesis ICD Codes: K31.84 - Gastroparesis SNOMED: 860785477 (3) Ileus ICD Codes: K56.7 - Ileus, unspecified SNOMED: 422179558 (4) Anemia ICD Codes: D64.9 - Anemia, unspecified SNOMED: 375623875 (5) Diabetes mellitus ICD Codes: E11.9 - Type 2 diabetes mellitus without complications SNOMED: 81489229 Status: stable, unchanged Status Narrative Discussed with Dr. Ortiz Assessment/Plan Assessment - chronic abd distention, refused colectomy - anemia - DM - Hypothyroid - severe hypokalemia - hx of carcinomas chronic colonic ileus SUMMARY OF FINDINGS: 1. Incomplete colonoscopy examination. 2. An area of edema at about 30 cm from the anal verge causing a kind of colonic outlet obstruction, status post biopsy of this area. Also status post biopsy of the sigmoid colon with some inflammation. 3. Severe colonic dilation and ileus, status post decompression, almost 3600 mL of fluid was aspirated in this procedure. Biopsy shows mild active colitis abd exam is much better, still has distention especially when sitting upright DC octreotide RECOMMENDATIONS: The patient requires turn every 2 hours Serial imaging as needed Aldactone to 100 advance diet Continue mesalamine Electrolyte replacement per nephro dc planning The patient was seen and examined at bedside and all new and available data was reviewed in the patients chart. I agree with the above findings, impression and plan. (Patient seen earlier today. Signature stamp does not reflect patient encounter time.). - Tavares Ortiz MD Subjective Subjective Abdominal distention Patient overall feels better Patient wants to be discharged Objective Last 24 Hour Vital Signs Date Time Temp Pulse Resp B/P (MAP) Pulse Ox O2 Delivery O2 Flow Rate FiO2 12/25/18 09:00 Room Air 12/25/18 08:00 97.8 60 17 130/63 (85) 100 12/25/18 05:26 159/73 12/25/18 04:13 97.9 61 19 159/73 (101) 100 12/25/18 00:08 97.8 61 19 144/69 (94) 100 12/24/18 21:35 151/67 12/24/18 20:56 Room Air 12/24/18 20:09 97.6 61 19 151/67 (95) 100 12/24/18 16:00 97.0 74 20 127/74 (91) 96 12/24/18 13:14 116/64 Intake and Output 12/24/18 12/25/18 18:59 06:59 Intake Total 650 ml Balance 650 ml Intake Oral 100 ml IV Total 550 ml # Voids 2 2 # Bowel Movements 3 1 Laboratory Tests Test 12/25/18 05:20 White Blood Count 7.3 K/UL (4.8-10.8) Red Blood Count 4.01 M/UL (4.70-6.10) L Hemoglobin 12.3 G/DL (14.2-18.0) L Hematocrit 38.1 % (42.0-52.0) L Mean Corpuscular Volume 95 FL (80-99) Mean Corpuscular Hemoglobin 30.6 PG (27.0-31.0) Mean Corpuscular Hemoglobin Concent 32.2 G/DL (32.0-36.0) Red Cell Distribution Width 13.2 % (11.6-14.8) Platelet Count 226 K/UL (150-450) Mean Platelet Volume 6.0 FL (6.5-10.1) L Neutrophils (%) (Auto) 68.3 % (45.0-75.0) Lymphocytes (%) (Auto) 22.1 % (20.0-45.0) Monocytes (%) (Auto) 7.4 % (1.0-10.0) Eosinophils (%) (Auto) 1.4 % (0.0-3.0) Basophils (%) (Auto) 0.9 % (0.0-2.0) Sodium Level 146 MMOL/L (136-145) H Potassium Level 4.0 MMOL/L (3.5-5.1) Chloride Level 118 MMOL/L (98-107) H Carbon Dioxide Level 17 MMOL/L (21-32) L Anion Gap 11 mmol/L (5-15) Blood Urea Nitrogen 11 mg/dL (7-18) Creatinine 1.0 MG/DL (0.55-1.30) Estimat Glomerular Filtration Rate mL/min (>60) Glucose Level 84 MG/DL (74-106) Calcium Level 8.3 MG/DL (8.5-10.1) L Phosphorus Level 2.1 MG/DL (2.5-4.9) L Magnesium Level 1.8 MG/DL (1.8-2.4) Height (Feet): 5 Height (Inches): 11.00 Weight (Pounds): 153 General Appearance: WD/WN, no apparent distress, alert Cardiovascular: normal rate Respiratory/Chest: normal breath sounds, no respiratory distress Abdominal Exam: normal bowel sounds, non tender, soft, distended Extremities: non-tender Objective Reported diarrhea Cristina Galloway [employer] [facility] Dec 25, 2018 12:28
[2018-12-25 16:00] VITALS: BP 126/71
--- NOTE | 2018-12-25 17:16 | Nephrology Progress Note ---
Assessment/Plan Problem List: (1) Hypokalemia Assessment: persistant (2) UTI (urinary tract infection) (3) HTN (hypertension) (4) Ileus Assessment Low K Volvolus Anemia hypothyroid HTN BPH Dementia DM Plan Per GI- D5W adjust BP meds Trial of Somatostatin and ASACOL K supplement IV and PO PO Aldactone increase dose Hydralazine for BP add Reglan change Rocephin to Cefepime, Pseudomonas UTI TSH wnl clear liquids IV hydrate discussed with RN Subjective ROS Limited/Unobtainable: No Objective Objective Last 24 Hour Vital Signs Date Time Temp Pulse Resp B/P (MAP) Pulse Ox O2 Delivery O2 Flow Rate FiO2 12/25/18 16:00 97.7 69 18 126/71 (89) 100 12/25/18 13:11 127/70 12/25/18 12:00 98.6 69 18 127/70 (89) 99 12/25/18 09:00 Room Air 12/25/18 08:00 97.8 60 17 130/63 (85) 100 12/25/18 05:26 159/73 12/25/18 04:13 97.9 61 19 159/73 (101) 100 12/25/18 00:08 97.8 61 19 144/69 (94) 100 12/24/18 21:35 151/67 12/24/18 20:56 Room Air 12/24/18 20:09 97.6 61 19 151/67 (95) 100 Intake and Output 12/24/18 12/25/18 19:00 07:00 Intake Total 50 ml 600 ml Balance 50 ml 600 ml Intake Oral 100 ml IV Total 50 ml 500 ml # Voids 2 2 # Bowel Movements 3 1 Laboratory Tests 12/25/18 05:20: White Blood Count 7.3, Red Blood Count 4.01L, Hemoglobin 12.3L, Hematocrit 38.1L , Mean Corpuscular Volume 95, Mean Corpuscular Hemoglobin 30.6, Mean Corpuscular Hemoglobin Concent 32.2, Red Cell Distribution Width 13.2, Platelet Count 226, Mean Platelet Volume 6.0L, Neutrophils (%) (Auto) 68.3, Lymphocytes ( %) (Auto) 22.1, Monocytes (%) (Auto) 7.4, Eosinophils (%) (Auto) 1.4, Basophils (%) (Auto) 0.9, Sodium Level 146H, Potassium Level 4.0, Chloride Level 118H, Carbon Dioxide Level 17L, Anion Gap 11, Blood Urea Nitrogen 11, Creatinine 1.0, Estimat Glomerular Filtration Rate , Glucose Level 84, Calcium Level 8.3L, Phosphorus Level 2.1L, Magnesium Level 1.8 Height (Feet): 5 Height (Inches): 11.00 Weight (Pounds): 153 General Appearance: no apparent distress Cardiovascular: normal rate Respiratory/Chest: decreased breath sounds Abdomen: distended Objective no change Herve Marshall MD Dec 25, 2018 17:16
--- NOTE | 2018-12-25 19:18 | NUR ---
HAND-OFF: Report given to Taina GOSS.
--- NOTE | 2018-12-25 19:56 | NUR ---
NURSE NOTES: Patient received resting in bed. Alert and oriented, breathing unlabored. Denies pain at this time. PICC line patent and intact. Auscultated G-tube placement. Patient is tolerating feeding well. Bed locked in lowest position. Call light placed within reach, will continue to monitor. Addendum: 12/25/18 at 2015 by Berenice Prater RN charted on a wrong patient. TB.
--- NOTE | 2018-12-25 20:17 | NUR ---
NURSE NOTES: Patient received resting in bed. Alert and oriented, breathing unlabored. Denies pain at this time. PICC line patent and intact. Bed locked in lowest position. Call light placed within reach, will continue to monitor.
[2018-12-25 20:29] VITALS: BP 152/82
[2018-12-25] MEDS: Dyna-Hex 2% Top Sol 2oz TOPIC SCH (20:40)
--- NOTE | 2018-12-25 20:52 | General Progress Note ---
Assessment/Plan Problem List: (1) Hypokalemia ICD Codes: E87.6 - Hypokalemia SNOMED: 42977381 (2) Ileus ICD Codes: K56.7 - Ileus, unspecified SNOMED: 076250335 (3) Gastroparesis ICD Codes: K31.84 - Gastroparesis SNOMED: 084776156 (4) Sigmoid volvulus ICD Codes: K56.2 - Volvulus SNOMED: 379363984 (5) HTN (hypertension) ICD Codes: I10 - Essential (primary) hypertension SNOMED: 62793387 Status: progressing Assessment/Plan bowel sounds present abdomin is non tender reglan prn per gi still distended abdomen although somewhat better requires high dose of kcl k is normalized reglan and rectal tube per dr monica dillon historian a Subjective ROS Limited/Unobtainable: Yes Allergies: Coded Allergies: No Known Allergies (Unverified , 04/22/17) Objective Last 24 Hour Vital Signs Date Time Temp Pulse Resp B/P (MAP) Pulse Ox O2 Delivery O2 Flow Rate FiO2 12/25/18 20:29 98.3 60 18 152/82 (105) 99 12/25/18 16:00 97.7 69 18 126/71 (89) 100 12/25/18 13:11 127/70 12/25/18 12:00 98.6 69 18 127/70 (89) 99 12/25/18 09:00 Room Air 12/25/18 08:00 97.8 60 17 130/63 (85) 100 12/25/18 05:26 159/73 12/25/18 04:13 97.9 61 19 159/73 (101) 100 12/25/18 00:08 97.8 61 19 144/69 (94) 100 12/24/18 21:35 151/67 12/24/18 20:56 Room Air Intake and Output 12/24/18 12/25/18 19:00 07:00 Intake Total 50 ml 600 ml Balance 50 ml 600 ml Intake Oral 100 ml IV Total 50 ml 500 ml # Voids 2 2 # Bowel Movements 3 1 Laboratory Tests 12/25/18 05:20: White Blood Count 7.3, Red Blood Count 4.01L, Hemoglobin 12.3L, Hematocrit 38.1L , Mean Corpuscular Volume 95, Mean Corpuscular Hemoglobin 30.6, Mean Corpuscular Hemoglobin Concent 32.2, Red Cell Distribution Width 13.2, Platelet Count 226, Mean Platelet Volume 6.0L, Neutrophils (%) (Auto) 68.3, Lymphocytes ( %) (Auto) 22.1, Monocytes (%) (Auto) 7.4, Eosinophils (%) (Auto) 1.4, Basophils (%) (Auto) 0.9, Sodium Level 146H, Potassium Level 4.0, Chloride Level 118H, Carbon Dioxide Level 17L, Anion Gap 11, Blood Urea Nitrogen 11, Creatinine 1.0, Estimat Glomerular Filtration Rate , Glucose Level 84, Calcium Level 8.3L, Phosphorus Level 2.1L, Magnesium Level 1.8 Height (Feet): 5 Height (Inches): 11.00 Weight (Pounds): 153 General Appearance: confused Cardiovascular: regular rhythm Abdomen: distended Jose Francisco Chand MD Dec 25, 2018 20:52
[2018-12-26] VITALS (7 sets, daily range): BP systolic 134–194; BP diastolic 62–94
[2018-12-26 06:10] LABS: BASOPHILS % (AUTO) 0.6 % (0.0-2.0); HEMATOCRIT 39.2 % (42.0-52.0); HEMOGLOBIN 12.6 G/DL (14.2-18.0); LYMPHOCYTES % (AUTO) 16.4 % (20.0-45.0); MEAN CORPUSCULAR VOLUME 95 FL (80-99); MONOCYTES % (AUTO) 6.5 % (1.0-10.0); NEUTROPHILS % (AUTO) 75.5 % (45.0-75.0); PLATELET COUNT 254 K/UL (150-450); RED BLOOD COUNT 4.15 M/UL (4.70-6.10); RED CELL DISTRIBUTION WIDTH 13.2 % (11.6-14.8); WHITE BLOOD COUNT 8.4 K/UL (4.8-10.8)
--- NOTE | 2018-12-26 06:13 | NUR ---
NURSE NOTES: Assessed and changed pt's picc line dressing.
[2018-12-26] MEDS: HydrALAZINE 50mg tab ORAL SCH ×3 (06:20→21:17)
[2018-12-26] MEDS: NovoLOG Insulin Flexpen SUBQ SCH ×4 (06:30→20:10)
[2018-12-26 06:39] LABS: ALANINE AMINOTRANSFERASE 33 U/L (12-78); ALBUMIN 3.2 G/DL (3.4-5.0); ALBUMIN/GLOBULIN RATIO 0.9 (1.0-2.7); ALKALINE PHOSPHATASE 70 U/L (46-116); ANION GAP 12 mmol/L (5-15); ASPARTATE AMINO TRANSFERASE 20 U/L (15-37); BILIRUBIN,TOTAL 0.4 MG/DL (0.2-1.0); BLOOD UREA NITROGEN 15 mg/dL (7-18); CALCIUM 8.3 MG/DL (8.5-10.1); CARBON DIOXIDE 17 MMOL/L (21-32); CHLORIDE 117 MMOL/L (98-107); PHOSPHORUS 2.6 MG/DL (2.5-4.9); POTASSIUM 3.9 MMOL/L (3.5-5.1); SODIUM 146 MMOL/L (136-145)
--- NOTE | 2018-12-26 07:22 | NUR ---
HAND-OFF: Report given to Aristides GOSS.
--- NOTE | 2018-12-26 07:40 | NUR ---
NURSE NOTES: Received patient on bed, awake. PICC line right upper arm intact and patent. Bed in low and locked position, call light in reach. No signs of respiratory distress or pain. Room board updated, will continue to monitor.
--- NOTE | 2018-12-26 08:22 | General Progress Note ---
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 - we can't assess PAC/PRA as long as on Aldactone - continue Aldactone 50 mg tid continue NISS Subjective ROS Limited/Unobtainable: Yes Allergies: Coded Allergies: No Known Allergies (Unverified , 04/22/17) Subjective events noted Item Value Date Time Bedside Blood Glucose 83 mg/dl 12/26/18 0630 Bedside Blood Glucose 106 mg/dl 12/25/18 2041 Bedside Blood Glucose 108 mg/dl 12/25/18 1630 Bedside Blood Glucose 140 mg/dl H 12/25/18 1129 Bedside Blood Glucose 77 mg/dl 12/25/18 0531 Objective Last 24 Hour Vital Signs Date Time Temp Pulse Resp B/P (MAP) Pulse Ox O2 Delivery O2 Flow Rate FiO2 12/26/18 06:20 139/89 12/26/18 04:19 98.2 62 18 139/89 (106) 100 12/26/18 00:08 98.8 64 17 148/74 (98) 100 12/25/18 22:31 131/70 12/25/18 21:53 Room Air 12/25/18 20:29 98.3 60 18 152/82 (105) 99 12/25/18 16:00 97.7 69 18 126/71 (89) 100 12/25/18 13:11 127/70 12/25/18 12:00 98.6 69 18 127/70 (89) 99 12/25/18 09:00 Room Air Intake and Output 12/25/18 12/26/18 19:00 07:00 Intake Total 240 ml Balance 240 ml Intake Oral 240 ml # Voids 4 2 # Bowel Movements 2 1 Laboratory Tests 12/26/18 04:35: White Blood Count 8.4, Red Blood Count 4.15L, Hemoglobin 12.6L, Hematocrit 39.2L , Mean Corpuscular Volume 95, Mean Corpuscular Hemoglobin 30.3, Mean Corpuscular Hemoglobin Concent 32.0, Red Cell Distribution Width 13.2, Platelet Count 254, Mean Platelet Volume 6.5, Neutrophils (%) (Auto) 75.5H, Lymphocytes ( %) (Auto) 16.4L, Monocytes (%) (Auto) 6.5, Eosinophils (%) (Auto) 1.0, Basophils (%) (Auto) 0.6, Sodium Level 146H, Potassium Level 3.9, Chloride Level 117H, Carbon Dioxide Level 17L, Anion Gap 12, Blood Urea Nitrogen 15, Creatinine 1.0, Estimat Glomerular Filtration Rate , Glucose Level 85, Calcium Level 8.3L, Phosphorus Level 2.6, Magnesium Level 1.7L, Total Bilirubin 0.4, Aspartate Amino Transf (AST/SGOT) 20, Alanine Aminotransferase (ALT/SGPT) 33, Alkaline Phosphatase 70, C-Reactive Protein, Quantitative < 0.4, Pro-B-Type Natriuretic Peptide 287H, Total Protein 6.9, Albumin 3.2L, Globulin 3.7, Albumin /Globulin Ratio 0.9L Height (Feet): 5 Height (Inches): 11.00 Weight (Pounds): 153 General Appearance: no apparent distress Neck: normal alignment Cardiovascular: normal rate Respiratory/Chest: lungs clear Abdomen: normal bowel sounds Pelvis: normal external exam Objective Current Medications Medications (Trade) Dose Ordered Sig/Kevin Route PRN Reason Start Time Stop Time Status Last Admin Dose Admin Acetaminophen (Tylenol) 650 mg Q4H PRN ORAL Mild Pain/Temp > 100.5 12/24/18 14:00 01/10/19 13:59 Chlorhexidine Gluconate (Alejandrina-Hex 2%) 1 applic DAILY@1999 TOPIC 12/24/18 20:00 01/17/19 19:59 12/25/18 20:40 Dextrose (Dextrose 50%) 25 ml Q30M PRN IV Hypoglycemia 12/24/18 14:30 01/16/19 02:29 Dextrose (Dextrose 50%) 50 ml Q30M PRN IV Hypoglycemia 12/24/18 14:30 01/16/19 02:29 Hydralazine HCl (Apresoline) 75 mg Q8HR ORAL 12/24/18 22:00 01/23/19 21:59 12/26/18 06:20 Insulin Aspart (NovoLOG) BEFORE MEALS AND HS SUBQ 12/24/18 16:30 01/16/19 06:29 12/25/18 11:29 Mesalamine (Asacol) 1,600 mg THREE TIMES A DAY ORAL 12/24/18 18:00 01/18/19 12:59 12/25/18 18:22 Ondansetron HCl (Zofran) 4 mg Q6H PRN IVP Nausea & Vomiting 12/24/18 14:00 01/13/19 13:59 Potassium Chloride (K-Dur) 40 meq TID ORAL 12/24/18 18:00 01/14/19 08:59 12/25/18 18:22 Spironolactone (Aldactone) 50 mg Q12HR ORAL 12/25/18 09:00 01/23/19 21:59 12/25/18 20:40 Rodriguez Mata MD Dec 26, 2018 08:22
[2018-12-26] MEDS: Spironolactone 50mg tab ORAL SCH ×2 (09:07→20:30)
[2018-12-26] MEDS: Mesalamine 400mg cap ORAL SCH ×3 (09:07→18:08)
--- NOTE | 2018-12-26 10:21 | General Progress Note ---
Assessment/Plan Problem List: (1) Hypokalemia ICD Codes: E87.6 - Hypokalemia SNOMED: 78223641 (2) Ileus ICD Codes: K56.7 - Ileus, unspecified SNOMED: 458210194 (3) Gastroparesis ICD Codes: K31.84 - Gastroparesis SNOMED: 906450936 (4) Sigmoid volvulus ICD Codes: K56.2 - Volvulus SNOMED: 719081481 (5) HTN (hypertension) ICD Codes: I10 - Essential (primary) hypertension SNOMED: 38079812 Status: progressing Assessment/Plan still distended abdomen reglan prn hypokalemia is improved dementia reviewed chart and labs and meds Subjective ROS Limited/Unobtainable: Yes Allergies: Coded Allergies: No Known Allergies (Unverified , 04/22/17) Objective Last 24 Hour Vital Signs Date Time Temp Pulse Resp B/P (MAP) Pulse Ox O2 Delivery O2 Flow Rate FiO2 12/26/18 09:00 Room Air 12/26/18 08:00 97.9 61 18 143/75 (97) 100 12/26/18 06:20 139/89 12/26/18 04:19 98.2 62 18 139/89 (106) 100 12/26/18 00:08 98.8 64 17 148/74 (98) 100 12/25/18 22:31 131/70 12/25/18 21:53 Room Air 12/25/18 20:29 98.3 60 18 152/82 (105) 99 12/25/18 16:00 97.7 69 18 126/71 (89) 100 12/25/18 13:11 127/70 12/25/18 12:00 98.6 69 18 127/70 (89) 99 Intake and Output 12/25/18 12/26/18 19:00 07:00 Intake Total 240 ml Balance 240 ml Intake Oral 240 ml # Voids 4 2 # Bowel Movements 2 1 Laboratory Tests 12/26/18 04:35: White Blood Count 8.4, Red Blood Count 4.15L, Hemoglobin 12.6L, Hematocrit 39.2L , Mean Corpuscular Volume 95, Mean Corpuscular Hemoglobin 30.3, Mean Corpuscular Hemoglobin Concent 32.0, Red Cell Distribution Width 13.2, Platelet Count 254, Mean Platelet Volume 6.5, Neutrophils (%) (Auto) 75.5H, Lymphocytes ( %) (Auto) 16.4L, Monocytes (%) (Auto) 6.5, Eosinophils (%) (Auto) 1.0, Basophils (%) (Auto) 0.6, Sodium Level 146H, Potassium Level 3.9, Chloride Level 117H, Carbon Dioxide Level 17L, Anion Gap 12, Blood Urea Nitrogen 15, Creatinine 1.0, Estimat Glomerular Filtration Rate , Glucose Level 85, Calcium Level 8.3L, Phosphorus Level 2.6, Magnesium Level 1.7L, Total Bilirubin 0.4, Aspartate Amino Transf (AST/SGOT) 20, Alanine Aminotransferase (ALT/SGPT) 33, Alkaline Phosphatase 70, C-Reactive Protein, Quantitative < 0.4, Pro-B-Type Natriuretic Peptide 287H, Total Protein 6.9, Albumin 3.2L, Globulin 3.7, Albumin /Globulin Ratio 0.9L Height (Feet): 5 Height (Inches): 11.00 Weight (Pounds): 153 Abdomen: distended Jose Francisco Chand MD Dec 26, 2018 10:21
--- NOTE | 2018-12-26 14:37 | Nephrology Progress Note ---
Assessment/Plan Problem List: (1) Hypokalemia Assessment: persistant (2) UTI (urinary tract infection) (3) HTN (hypertension) (4) Ileus Assessment Low K Volvolus Anemia hypothyroid HTN BPH Dementia DM Plan Per GI- D5W adjust BP meds Trial of Somatostatin and ASACOL K supplement IV and PO PO Aldactone increase dose Hydralazine for BP add Reglan change Rocephin to Cefepime, Pseudomonas UTI TSH wnl clear liquids IV hydrate discussed with RN Subjective ROS Limited/Unobtainable: No Objective Objective Last 24 Hour Vital Signs Date Time Temp Pulse Resp B/P (MAP) Pulse Ox O2 Delivery O2 Flow Rate FiO2 12/26/18 14:09 134/72 (92) 12/26/18 12:00 97.0 76 16 194/94 (127) 100 12/26/18 09:00 Room Air 12/26/18 08:00 97.9 61 18 143/75 (97) 100 12/26/18 06:20 139/89 12/26/18 04:19 98.2 62 18 139/89 (106) 100 12/26/18 00:08 98.8 64 17 148/74 (98) 100 12/25/18 22:31 131/70 12/25/18 21:53 Room Air 12/25/18 20:29 98.3 60 18 152/82 (105) 99 12/25/18 16:00 97.7 69 18 126/71 (89) 100 Intake and Output 12/25/18 12/26/18 18:59 06:59 Intake Total 240 ml Balance 240 ml Intake Oral 240 ml # Voids 4 2 # Bowel Movements 2 1 Laboratory Tests 12/26/18 04:35: White Blood Count 8.4, Red Blood Count 4.15L, Hemoglobin 12.6L, Hematocrit 39.2L , Mean Corpuscular Volume 95, Mean Corpuscular Hemoglobin 30.3, Mean Corpuscular Hemoglobin Concent 32.0, Red Cell Distribution Width 13.2, Platelet Count 254, Mean Platelet Volume 6.5, Neutrophils (%) (Auto) 75.5H, Lymphocytes ( %) (Auto) 16.4L, Monocytes (%) (Auto) 6.5, Eosinophils (%) (Auto) 1.0, Basophils (%) (Auto) 0.6, Sodium Level 146H, Potassium Level 3.9, Chloride Level 117H, Carbon Dioxide Level 17L, Anion Gap 12, Blood Urea Nitrogen 15, Creatinine 1.0, Estimat Glomerular Filtration Rate , Glucose Level 85, Calcium Level 8.3L, Phosphorus Level 2.6, Magnesium Level 1.7L, Total Bilirubin 0.4, Aspartate Amino Transf (AST/SGOT) 20, Alanine Aminotransferase (ALT/SGPT) 33, Alkaline Phosphatase 70, C-Reactive Protein, Quantitative < 0.4, Pro-B-Type Natriuretic Peptide 287H, Total Protein 6.9, Albumin 3.2L, Globulin 3.7, Albumin /Globulin Ratio 0.9L Height (Feet): 5 Height (Inches): 11.00 Weight (Pounds): 153 General Appearance: no apparent distress Objective no change Herve Marshall MD Dec 26, 2018 14:37
--- NOTE | 2018-12-26 14:49 | NUR ---
CASE MANAGEMENT: REVIEW 12/26/2018 SI: ILEUS . SIGMOID VOLVULUS . HYPOKALEMIA COLONOSCOPY w/BIOPSY 12/15 T 97 HR 76 RR 16 B/P 194/94 SATS 100% ON RA NA 146 CL 117 CO 17 CA 8.3 PHOS 1.7 IS: ALDACTONE PO BID K-DUR PO TID CEFEPIME IV Q12HR MED/SURG UNIT STATUS DCP: PATIENT IS FROM [facility]
--- NOTE | 2018-12-26 15:49 | General Progress Note ---
Assessment/Plan Assessment/Plan Assessment - chronic abd distention - anemia - DM - Hypothyroid - severe hypokalemia Recommendation - PO as tolerate - turn side to side frequently - follow exam Subjective Allergies: Coded Allergies: No Known Allergies (Unverified , 04/22/17) Subjective Minimally interactive d/w staff rn Objective Last 24 Hour Vital Signs Date Time Temp Pulse Resp B/P (MAP) Pulse Ox O2 Delivery O2 Flow Rate FiO2 12/26/18 14:51 134/72 12/26/18 14:09 134/72 (92) 12/26/18 12:00 97.0 76 16 194/94 (127) 100 12/26/18 09:00 Room Air 12/26/18 08:00 97.9 61 18 143/75 (97) 100 12/26/18 06:20 139/89 12/26/18 04:19 98.2 62 18 139/89 (106) 100 12/26/18 00:08 98.8 64 17 148/74 (98) 100 12/25/18 22:31 131/70 12/25/18 21:53 Room Air 12/25/18 20:29 98.3 60 18 152/82 (105) 99 12/25/18 16:00 97.7 69 18 126/71 (89) 100 Intake and Output 12/25/18 12/26/18 18:59 06:59 Intake Total 240 ml Balance 240 ml Intake Oral 240 ml # Voids 4 2 # Bowel Movements 2 1 Laboratory Tests 12/26/18 04:35: White Blood Count 8.4, Red Blood Count 4.15L, Hemoglobin 12.6L, Hematocrit 39.2L , Mean Corpuscular Volume 95, Mean Corpuscular Hemoglobin 30.3, Mean Corpuscular Hemoglobin Concent 32.0, Red Cell Distribution Width 13.2, Platelet Count 254, Mean Platelet Volume 6.5, Neutrophils (%) (Auto) 75.5H, Lymphocytes ( %) (Auto) 16.4L, Monocytes (%) (Auto) 6.5, Eosinophils (%) (Auto) 1.0, Basophils (%) (Auto) 0.6, Sodium Level 146H, Potassium Level 3.9, Chloride Level 117H, Carbon Dioxide Level 17L, Anion Gap 12, Blood Urea Nitrogen 15, Creatinine 1.0, Estimat Glomerular Filtration Rate , Glucose Level 85, Calcium Level 8.3L, Phosphorus Level 2.6, Magnesium Level 1.7L, Total Bilirubin 0.4, Aspartate Amino Transf (AST/SGOT) 20, Alanine Aminotransferase (ALT/SGPT) 33, Alkaline Phosphatase 70, C-Reactive Protein, Quantitative < 0.4, Pro-B-Type Natriuretic Peptide 287H, Total Protein 6.9, Albumin 3.2L, Globulin 3.7, Albumin /Globulin Ratio 0.9L Height (Feet): 5 Height (Inches): 11.00 Weight (Pounds): 153 Objective Thin AA man NCAT supple CTA RR abd distended, tympanitic, non tender no edema Naresh Sher MD Dec 26, 2018 15:49
--- NOTE | 2018-12-26 15:54 | Surgery Progress Note ---
Surgery Progress Note Subjective Symptoms: improved, pain absent, tolerating diet, passing flatus, BM Objective Last 24 Hour Vital Signs Date Time Temp Pulse Resp B/P (MAP) Pulse Ox O2 Delivery O2 Flow Rate FiO2 12/26/18 14:51 134/72 12/26/18 14:09 134/72 (92) 12/26/18 12:00 97.0 76 16 194/94 (127) 100 12/26/18 09:00 Room Air 12/26/18 08:00 97.9 61 18 143/75 (97) 100 12/26/18 06:20 139/89 12/26/18 04:19 98.2 62 18 139/89 (106) 100 12/26/18 00:08 98.8 64 17 148/74 (98) 100 12/25/18 22:31 131/70 12/25/18 21:53 Room Air 12/25/18 20:29 98.3 60 18 152/82 (105) 99 12/25/18 16:00 97.7 69 18 126/71 (89) 100 I&O Intake and Output 12/25/18 12/26/18 18:59 06:59 Intake Total 240 ml Balance 240 ml Intake Oral 240 ml # Voids 4 2 # Bowel Movements 2 1 Drains: none Cardiovascular: RSR Respiratory: clear Abdomen: soft, distended, non-tender, present bowel sounds Extremities: no tenderness, no cyanosis Laboratory Tests Test 12/26/18 04:35 White Blood Count 8.4 K/UL (4.8-10.8) Red Blood Count 4.15 M/UL (4.70-6.10) L Hemoglobin 12.6 G/DL (14.2-18.0) L Hematocrit 39.2 % (42.0-52.0) L Mean Corpuscular Volume 95 FL (80-99) Mean Corpuscular Hemoglobin 30.3 PG (27.0-31.0) Mean Corpuscular Hemoglobin Concent 32.0 G/DL (32.0-36.0) Red Cell Distribution Width 13.2 % (11.6-14.8) Platelet Count 254 K/UL (150-450) Mean Platelet Volume 6.5 FL (6.5-10.1) Neutrophils (%) (Auto) 75.5 % (45.0-75.0) H Lymphocytes (%) (Auto) 16.4 % (20.0-45.0) L Monocytes (%) (Auto) 6.5 % (1.0-10.0) Eosinophils (%) (Auto) 1.0 % (0.0-3.0) Basophils (%) (Auto) 0.6 % (0.0-2.0) Sodium Level 146 MMOL/L (136-145) H Potassium Level 3.9 MMOL/L (3.5-5.1) Chloride Level 117 MMOL/L (98-107) H Carbon Dioxide Level 17 MMOL/L (21-32) L Anion Gap 12 mmol/L (5-15) Blood Urea Nitrogen 15 mg/dL (7-18) Creatinine 1.0 MG/DL (0.55-1.30) Estimat Glomerular Filtration Rate mL/min (>60) Glucose Level 85 MG/DL (74-106) Calcium Level 8.3 MG/DL (8.5-10.1) L Phosphorus Level 2.6 MG/DL (2.5-4.9) Magnesium Level 1.7 MG/DL (1.8-2.4) L Total Bilirubin 0.4 MG/DL (0.2-1.0) Aspartate Amino Transf (AST/SGOT) 20 U/L (15-37) Alanine Aminotransferase (ALT/SGPT) 33 U/L (12-78) Alkaline Phosphatase 70 U/L (46-116) C-Reactive Protein, Quantitative < 0.4 mg/dL (0.00-0.90) Pro-B-Type Natriuretic Peptide 287 pg/mL (0-125) H Total Protein 6.9 G/DL (6.4-8.2) Albumin 3.2 G/DL (3.4-5.0) L Globulin 3.7 g/dL Albumin/Globulin Ratio 0.9 (1.0-2.7) L Plan Problems: (1) Ileus (2) Sigmoid volvulus Assessment & Plan: 78 year old male with concerns of sigmoid volvulus. afebrile, HD stable, abnormal electrolytes, distended, tympanic, no abd pain. states he is having flatus now. does not seem to clinically have sigmoid volvulus and CT reviewed and more consistent with ileus. Remains very distended, tympanic, non tender. afebrile, HD stable, no leukocytosis hypo K okay for diet iv fluids replace electrolytes trend labs will follow with serial exams given colonoscopy findings, exam, kub results, labs, and clinical course there is consideration for colectomy. I discussed this option with patient. he states he needs to talk with his family first. had not talked to family yet. spoke with patient today. states he does not want surgery. c diff negative otherwise stable. discharge planning Chava Smith Dec 26, 2018 15:54
--- NOTE | 2018-12-26 19:28 | NUR ---
HAND-OFF: Report given to ANA PAULA Zhou.
--- NOTE | 2018-12-26 19:30 | NUR ---
NURSE NOTES: Recieved pt form previous nurse. pt sleeping comfortably. no acute distress noted. no s/s of pain. safety precaution in place. will continue to monitor
[2018-12-26] MEDS: Dyna-Hex 2% Top Sol 2oz TOPIC SCH (19:42)
[2018-12-27] VITALS: BP 116/64
--- NOTE | 2018-12-27 02:40 | NUR ---
NURSE NOTES: pt sleeping no acute distress no s/s of discomfort or pain. will continue to monitor
[2018-12-27 04:00] VITALS: BP 102/50
[2018-12-27] MEDS: HydrALAZINE 50mg tab ORAL SCH ×3 (06:06→22:00)
[2018-12-27] MEDS: NovoLOG Insulin Flexpen SUBQ SCH ×4 (06:06→20:42)
--- NOTE | 2018-12-27 07:21 | General Progress Note ---
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 - we can't assess PAC/PRA as long as on Aldactone K stable for the past 2 days - continue Aldactone 50 mg bid continue NISS Subjective ROS Limited/Unobtainable: Yes Allergies: Coded Allergies: No Known Allergies (Unverified , 04/22/17) Subjective events noted Item Value Date Time Bedside Blood Glucose 85 mg/dl 12/27/18 0630 Bedside Blood Glucose 101 mg/dl 12/26/18 2100 Bedside Blood Glucose 104 mg/dl 12/26/18 1657 Bedside Blood Glucose 144 mg/dl H 12/26/18 1235 Bedside Blood Glucose 83 mg/dl 12/26/18 0630 Objective Last 24 Hour Vital Signs Date Time Temp Pulse Resp B/P (MAP) Pulse Ox O2 Delivery O2 Flow Rate FiO2 12/27/18 06:06 102/50 12/27/18 04:00 97.0 62 18 102/50 (67) 100 12/27/18 00:00 97.2 60 18 116/64 (81) 100 12/26/18 21:17 140/62 12/26/18 21:00 Room Air 12/26/18 20:00 98.0 61 18 140/62 (88) 98 12/26/18 16:00 98.1 61 18 155/74 (101) 100 12/26/18 14:51 134/72 12/26/18 14:09 134/72 (92) 12/26/18 12:00 97.0 76 16 194/94 (127) 100 12/26/18 09:00 Room Air 12/26/18 08:00 97.9 61 18 143/75 (97) 100 Intake and Output 12/26/18 12/27/18 19:00 07:00 Intake Total 1000 ml 200 ml Balance 1000 ml 200 ml Intake Oral 600 ml 200 ml IV Total 400 ml # Voids 2 # Bowel Movements 1 Height (Feet): 5 Height (Inches): 11.00 Weight (Pounds): 153 General Appearance: no apparent distress Neck: normal alignment Respiratory/Chest: lungs clear Abdomen: normal bowel sounds Edema: no edema noted Arm (L), no edema noted Arm (R), no edema noted Leg (L), no edema noted Leg (R), no edema noted Pedal (L), no edema noted Pedal (R), no edema noted Generalized Objective Current Medications Medications (Trade) Dose Ordered Sig/Kevin Route PRN Reason Start Time Stop Time Status Last Admin Dose Admin Acetaminophen (Tylenol) 650 mg Q4H PRN ORAL Mild Pain/Temp > 100.5 12/24/18 14:00 01/10/19 13:59 Chlorhexidine Gluconate (Alejandrina-Hex 2%) 1 applic DAILY@1999 TOPIC 12/24/18 20:00 01/17/19 19:59 12/26/18 19:42 Dextrose (Dextrose 50%) 25 ml Q30M PRN IV Hypoglycemia 12/24/18 14:30 01/16/19 02:29 Dextrose (Dextrose 50%) 50 ml Q30M PRN IV Hypoglycemia 12/24/18 14:30 01/16/19 02:29 Hydralazine HCl (Apresoline) 75 mg Q8HR ORAL 12/24/18 22:00 01/23/19 21:59 12/27/18 06:06 Insulin Aspart (NovoLOG) BEFORE MEALS AND HS SUBQ 12/24/18 16:30 01/16/19 06:29 12/26/18 12:35 Mesalamine (Asacol) 1,600 mg THREE TIMES A DAY ORAL 12/24/18 18:00 01/18/19 12:59 12/26/18 18:08 Ondansetron HCl (Zofran) 4 mg Q6H PRN IVP Nausea & Vomiting 12/24/18 14:00 01/13/19 13:59 Potassium Chloride (K-Dur) 40 meq TID ORAL 12/24/18 18:00 01/14/19 08:59 12/26/18 18:08 Spironolactone (Aldactone) 50 mg Q12HR ORAL 12/25/18 09:00 01/23/19 21:59 12/26/18 20:30 Rodriguez Mata MD Dec 27, 2018 07:21
--- NOTE | 2018-12-27 07:25 | NUR ---
HAND-OFF: Report given to . Aristides GOSS.pt remains in stable condition, no change in condition during my shift.
[2018-12-27 08:00] VITALS: BP 96/59
--- NOTE | 2018-12-27 08:02 | NUR ---
NURSE NOTES: Received patient on bed, asleep. IV access intact and patent. Bed in low and locked position, call light in reach. No signs of respiratory distress oa pain. Room board updated, will continue to monitor.
[2018-12-27] MEDS: Spironolactone 50mg tab ORAL SCH ×2 (09:03→20:32)
[2018-12-27] MEDS: Mesalamine 400mg cap ORAL SCH ×3 (09:04→17:32)
--- NOTE | 2018-12-27 11:58 | General Progress Note ---
Assessment/Plan Problem List: (1) Hypokalemia ICD Codes: E87.6 - Hypokalemia SNOMED: 48589745 (2) Ileus ICD Codes: K56.7 - Ileus, unspecified SNOMED: 617820396 (3) Gastroparesis ICD Codes: K31.84 - Gastroparesis SNOMED: 111090980 (4) Sigmoid volvulus ICD Codes: K56.2 - Volvulus SNOMED: 251479205 (5) HTN (hypertension) ICD Codes: I10 - Essential (primary) hypertension SNOMED: 89780091 Status: progressing Assessment/Plan still distended abdomen agree w conservative management check k positive bowel sounds Subjective ROS Limited/Unobtainable: Yes Allergies: Coded Allergies: No Known Allergies (Unverified , 04/22/17) Objective Last 24 Hour Vital Signs Date Time Temp Pulse Resp B/P (MAP) Pulse Ox O2 Delivery O2 Flow Rate FiO2 12/27/18 09:00 Room Air 12/27/18 08:00 97.6 60 18 96/59 (71) 100 12/27/18 06:06 102/50 12/27/18 04:00 97.0 62 18 102/50 (67) 100 12/27/18 00:00 97.2 60 18 116/64 (81) 100 12/26/18 21:17 140/62 12/26/18 21:00 Room Air 12/26/18 20:00 98.0 61 18 140/62 (88) 98 12/26/18 16:00 98.1 61 18 155/74 (101) 100 12/26/18 14:51 134/72 12/26/18 14:09 134/72 (92) 12/26/18 12:00 97.0 76 16 194/94 (127) 100 Intake and Output 12/26/18 12/27/18 18:59 06:59 Intake Total 1000 ml 200 ml Balance 1000 ml 200 ml Intake Oral 600 ml 200 ml IV Total 400 ml # Voids 2 # Bowel Movements 1 Height (Feet): 5 Height (Inches): 11.00 Weight (Pounds): 153 EENT: normal ENT inspection Neck: normal alignment Jose Francisco Chand MD Dec 27, 2018 11:58
[2018-12-27 12:00] VITALS: BP 107/63
--- NOTE | 2018-12-27 13:16 | General Progress Note ---
Assessment/Plan Assessment/Plan Assessment - chronic abd distention - anemia - DM - Hypothyroid - hypokalemia - treated Recommendation - PO as tolerate - turn side to side frequently - follow exam Subjective Allergies: Coded Allergies: No Known Allergies (Unverified , 04/22/17) Subjective Minimally interactive no events overnight Objective Last 24 Hour Vital Signs Date Time Temp Pulse Resp B/P (MAP) Pulse Ox O2 Delivery O2 Flow Rate FiO2 12/27/18 12:00 97.7 60 18 107/63 (78) 100 12/27/18 09:00 Room Air 12/27/18 08:00 97.6 60 18 96/59 (71) 100 12/27/18 06:06 102/50 12/27/18 04:00 97.0 62 18 102/50 (67) 100 12/27/18 00:00 97.2 60 18 116/64 (81) 100 12/26/18 21:17 140/62 12/26/18 21:00 Room Air 12/26/18 20:00 98.0 61 18 140/62 (88) 98 12/26/18 16:00 98.1 61 18 155/74 (101) 100 12/26/18 14:51 134/72 12/26/18 14:09 134/72 (92) Intake and Output 12/26/18 12/27/18 18:59 06:59 Intake Total 1000 ml 200 ml Balance 1000 ml 200 ml Intake Oral 600 ml 200 ml IV Total 400 ml # Voids 2 # Bowel Movements 1 Height (Feet): 5 Height (Inches): 11.00 Weight (Pounds): 153 Objective Thin AA man NCAT supple CTA RR abd distended, tympanitic, non tender no edema Naresh Sher MD Dec 27, 2018 13:16
--- NOTE | 2018-12-27 14:43 | Nephrology Progress Note ---
Assessment/Plan Problem List: (1) Hypokalemia Assessment: persistant (2) UTI (urinary tract infection) (3) HTN (hypertension) (4) Ileus Assessment Low K Volvolus Anemia hypothyroid HTN BPH Dementia DM Plan Per GI- D5W adjust BP meds Trial of Somatostatin and ASACOL K supplement IV and PO PO Aldactone increase dose Hydralazine for BP add Reglan change Rocephin to Cefepime, Pseudomonas UTI TSH wnl clear liquids IV hydrate discussed with RN Subjective ROS Limited/Unobtainable: No Constitutional: Reports: malaise Objective Objective Last 24 Hour Vital Signs Date Time Temp Pulse Resp B/P (MAP) Pulse Ox O2 Delivery O2 Flow Rate FiO2 12/27/18 14:16 107/63 12/27/18 12:00 97.7 60 18 107/63 (78) 100 12/27/18 09:00 Room Air 12/27/18 08:00 97.6 60 18 96/59 (71) 100 12/27/18 06:06 102/50 12/27/18 04:00 97.0 62 18 102/50 (67) 100 12/27/18 00:00 97.2 60 18 116/64 (81) 100 12/26/18 21:17 140/62 12/26/18 21:00 Room Air 12/26/18 20:00 98.0 61 18 140/62 (88) 98 12/26/18 16:00 98.1 61 18 155/74 (101) 100 12/26/18 14:51 134/72 Intake and Output 12/26/18 12/27/18 18:59 06:59 Intake Total 1000 ml 200 ml Balance 1000 ml 200 ml Intake Oral 600 ml 200 ml IV Total 400 ml # Voids 2 # Bowel Movements 1 Height (Feet): 5 Height (Inches): 11.00 Weight (Pounds): 153 General Appearance: no apparent distress Abdomen: soft Objective no change Herve Marshall MD Dec 27, 2018 14:43
[2018-12-27 16:00] VITALS: BP 135/69
--- NOTE | 2018-12-27 18:18 | Surgery Progress Note ---
Surgery Progress Note Subjective Additional Comments still distended but comfortable. tolerating diet. bowel function. wants to know when he gets to leave hospital Objective Last 24 Hour Vital Signs Date Time Temp Pulse Resp B/P (MAP) Pulse Ox O2 Delivery O2 Flow Rate FiO2 12/27/18 14:16 107/63 12/27/18 12:00 97.7 60 18 107/63 (78) 100 12/27/18 09:00 Room Air 12/27/18 08:00 97.6 60 18 96/59 (71) 100 12/27/18 06:06 102/50 12/27/18 04:00 97.0 62 18 102/50 (67) 100 12/27/18 00:00 97.2 60 18 116/64 (81) 100 12/26/18 21:17 140/62 12/26/18 21:00 Room Air 12/26/18 20:00 98.0 61 18 140/62 (88) 98 I&O Intake and Output 12/26/18 12/27/18 18:59 06:59 Intake Total 1000 ml 200 ml Balance 1000 ml 200 ml Intake Oral 600 ml 200 ml IV Total 400 ml # Voids 2 # Bowel Movements 1 Cardiovascular: RSR Respiratory: clear Abdomen: soft, distended, non-tender, present bowel sounds Extremities: no tenderness, no cyanosis Plan Problems: (1) Ileus (2) Sigmoid volvulus Assessment & Plan: 78 year old male with concerns of sigmoid volvulus. afebrile, HD stable, abnormal electrolytes, distended, tympanic, no abd pain. states he is having flatus now. does not seem to clinically have sigmoid volvulus and CT reviewed and more consistent with ileus. Remains very distended, tympanic, non tender. afebrile, HD stable, no leukocytosis hypo K okay for diet iv fluids replace electrolytes trend labs will follow with serial exams given colonoscopy findings, exam, kub results, labs, and clinical course there is consideration for colectomy. I discussed this option with patient. he states he needs to talk with his family first. had not talked to family yet. spoke with patient today. states he does not want surgery. c diff negative otherwise stable. discharge planning exam unchanged and stable. labs noted Chava Smith Dec 27, 2018 18:18
--- NOTE | 2018-12-27 19:37 | NUR ---
HAND-OFF: Report given to RN Jeremias.
--- NOTE | 2018-12-27 19:51 | NUR ---
NURSE NOTES: Pt received asleep, in bed with no c/o pain or signs of distress, bed in lowest position, call light within reach, able to make needs known, will continue to monitor.
[2018-12-27 20:00] VITALS: BP 122/60
[2018-12-27] MEDS: Dyna-Hex 2% Top Sol 2oz TOPIC SCH (20:32)
[2018-12-28] VITALS: BP 162/70
[2018-12-28 04:00] VITALS: BP 117/78
[2018-12-28] MEDS: HydrALAZINE 50mg tab ORAL SCH ×2 (05:50→14:00)
[2018-12-28] MEDS: NovoLOG Insulin Flexpen SUBQ SCH ×2 (05:52→11:30)
--- NOTE | 2018-12-28 06:42 | General Progress Note ---
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 - we can't assess PAC/PRA as long as on Aldactone K stable for the past 2 days - continue Aldactone 50 mg bid continue NISS Subjective ROS Limited/Unobtainable: Yes Allergies: Coded Allergies: No Known Allergies (Unverified , 04/22/17) Subjective events noted Item Value Date Time Bedside Blood Glucose 113 mg/dl 12/28/18 0600 Bedside Blood Glucose 107 mg/dl 12/27/18 2100 Bedside Blood Glucose 104 mg/dl 12/27/18 1630 Bedside Blood Glucose 116 mg/dl 12/27/18 1202 Bedside Blood Glucose 85 mg/dl 12/27/18 0630 Objective Last 24 Hour Vital Signs Date Time Temp Pulse Resp B/P (MAP) Pulse Ox O2 Delivery O2 Flow Rate FiO2 12/28/18 05:50 131/61 12/28/18 04:00 98.0 60 20 117/78 (91) 97 12/28/18 00:00 97.9 61 20 162/70 (100) 100 12/27/18 22:00 120/59 12/27/18 21:00 Room Air 12/27/18 20:00 98.9 63 20 122/60 (80) 99 12/27/18 16:00 97.9 60 19 135/69 (91) 100 12/27/18 14:16 107/63 12/27/18 12:00 97.7 60 18 107/63 (78) 100 12/27/18 09:00 Room Air 12/27/18 08:00 97.6 60 18 96/59 (71) 100 Intake and Output 12/27/18 12/28/18 19:00 07:00 Intake Total 1050 ml Balance 1050 ml IV Total 400 ml Other 650 ml # Voids 2 # Bowel Movements 2 2 Height (Feet): 5 Height (Inches): 11.00 Weight (Pounds): 153 General Appearance: no apparent distress Neck: normal alignment Cardiovascular: normal rate Respiratory/Chest: lungs clear Abdomen: normal bowel sounds Objective Current Medications Medications (Trade) Dose Ordered Sig/Kevin Route PRN Reason Start Time Stop Time Status Last Admin Dose Admin Acetaminophen (Tylenol) 650 mg Q4H PRN ORAL Mild Pain/Temp > 100.5 12/24/18 14:00 01/10/19 13:59 Chlorhexidine Gluconate (Alejandrina-Hex 2%) 1 applic DAILY@1999 TOPIC 12/24/18 20:00 01/17/19 19:59 12/27/18 20:32 Dextrose (Dextrose 50%) 25 ml Q30M PRN IV Hypoglycemia 12/24/18 14:30 01/16/19 02:29 Dextrose (Dextrose 50%) 50 ml Q30M PRN IV Hypoglycemia 12/24/18 14:30 01/16/19 02:29 Hydralazine HCl (Apresoline) 75 mg Q8HR ORAL 12/24/18 22:00 01/23/19 21:59 12/28/18 05:50 Insulin Aspart (NovoLOG) BEFORE MEALS AND HS SUBQ 12/24/18 16:30 01/16/19 06:29 12/28/18 05:52 Mesalamine (Asacol) 1,600 mg THREE TIMES A DAY ORAL 12/24/18 18:00 01/18/19 12:59 12/27/18 17:32 Ondansetron HCl (Zofran) 4 mg Q6H PRN IVP Nausea & Vomiting 12/24/18 14:00 01/13/19 13:59 Potassium Chloride (K-Dur) 40 meq TID ORAL 12/24/18 18:00 01/14/19 08:59 12/27/18 17:32 Spironolactone (Aldactone) 50 mg Q12HR ORAL 12/25/18 09:00 01/23/19 21:59 12/27/18 20:32 Rodriguez Mata MD Dec 28, 2018 06:42
--- NOTE | 2018-12-28 07:24 | NUR ---
HAND-OFF: Report given to ANA PAULA Little.
--- NOTE | 2018-12-28 07:25 | NUR ---
CASE MANAGEMENT:REVIEW 12/28/18 SI: ILEUS. SIGMOID VOLVULUS 98.0 60 20 117/78 97% ON RA IS: ALDACTONE PO Q12 HYDRALAZINE PO Q8HRS K-DUR PO TID : MED/SURG STATUS 4 EAST DCP: PATIENT IS FROM [facility] PLAN; ABD STILL DISTENDED TOLERATING DIET ~ DC SOON
[2018-12-28 08:00] VITALS: BP 115/76
--- NOTE | 2018-12-28 08:31 | NUR ---
NURSE NOTES: Patient is sleep. No s/s of distress. Side rails are up X2, bed is locked, and in lowest position. Call light is within reach. Will continue to monitor.
[2018-12-28] MEDS: Spironolactone 50mg tab ORAL SCH (09:00)
[2018-12-28] MEDS: Mesalamine 400mg cap ORAL SCH ×2 (09:00→13:00)
--- NOTE | 2018-12-28 09:00 | NUR ---
NURSE NOTES: Patient is alert to name, place, and time. Patient refused PO AM medications. Patient says "I'm full of medication, I don't want them."
--- NOTE | 2018-12-28 10:37 | NUR ---
DISCHARGE PLANNING DISCHARGE ORDER NOTED FAXED CLINICALS TO [facility] T; [phone] AWAIT ACCEPTANCE AND BED AVAILABILITY
[2018-12-28 10:47] LABS: BASOPHILS % (AUTO) 0.5 % (0.0-2.0); EOSINOPHILS % (AUTO) 0.6 % (0.0-3.0); HEMATOCRIT 38.1 % (42.0-52.0); HEMOGLOBIN 12.3 G/DL (14.2-18.0); LYMPHOCYTES % (AUTO) 12.8 % (20.0-45.0); MEAN CORPUSCULAR VOLUME 93 FL (80-99); MONOCYTES % (AUTO) 5.2 % (1.0-10.0); NEUTROPHILS % (AUTO) 80.9 % (45.0-75.0); PLATELET COUNT 251 K/UL (150-450); RED BLOOD COUNT 4.09 M/UL (4.70-6.10); RED CELL DISTRIBUTION WIDTH 12.9 % (11.6-14.8); WHITE BLOOD COUNT 9.4 K/UL (4.8-10.8)
[2018-12-28 10:50] LABS: ANION GAP 12 mmol/L (5-15); BLOOD UREA NITROGEN 17 mg/dL (7-18); CALCIUM 8.4 MG/DL (8.5-10.1); CARBON DIOXIDE 17 MMOL/L (21-32); CHLORIDE 116 MMOL/L (98-107); CREATININE 1.1 MG/DL (0.55-1.30); POTASSIUM 3.9 MMOL/L (3.5-5.1); SODIUM 145 MMOL/L (136-145)
[2018-12-28 10:54] LABS: ALANINE AMINOTRANSFERASE 40 U/L (12-78); ALBUMIN 3.2 G/DL (3.4-5.0); ALBUMIN/GLOBULIN RATIO 0.8 (1.0-2.7); ALKALINE PHOSPHATASE 70 U/L (46-116); ASPARTATE AMINO TRANSFERASE 19 U/L (15-37); BILIRUBIN,TOTAL 0.3 MG/DL (0.2-1.0); PHOSPHORUS 2.5 MG/DL (2.5-4.9)
--- NOTE | 2018-12-28 11:34 | NUR ---
NURSE NOTES: Dr. Chand called to inquire if patient will need PICC upon discharge. New orders received.
--- NOTE | 2018-12-28 11:50 | GI Progress Note ---
Assessment/Plan Problems: (1) Sigmoid volvulus ICD Codes: K56.2 - Volvulus SNOMED: 563076333 (2) Gastroparesis ICD Codes: K31.84 - Gastroparesis SNOMED: 360390662 (3) Ileus ICD Codes: K56.7 - Ileus, unspecified SNOMED: 345084953 (4) Anemia ICD Codes: D64.9 - Anemia, unspecified SNOMED: 034857356 (5) Diabetes mellitus ICD Codes: E11.9 - Type 2 diabetes mellitus without complications SNOMED: 23610300 Status: stable Status Narrative Discussed with Dr. Ortiz Assessment/Plan Assessment - chronic abd distention, refused colectomy - anemia - DM - Hypothyroid - severe hypokalemia - hx of carcinomas chronic colonic ileus Patient ambulated with PT SUMMARY OF FINDINGS: 1. Incomplete colonoscopy examination. 2. An area of edema at about 30 cm from the anal verge causing a kind of colonic outlet obstruction, status post biopsy of this area. Also status post biopsy of the sigmoid colon with some inflammation. 3. Severe colonic dilation and ileus, status post decompression, almost 3600 mL of fluid was aspirated in this procedure. Biopsy shows mild active colitis abd exam is much better, still has distention especially when sitting upright DC octreotide RECOMMENDATIONS: The patient requires turn every 2 hours Serial imaging as needed advance diet Continue mesalamine Electrolyte replacement per nephro Recommend outpatient physical therapy dc planning The patient was seen and examined at bedside and all new and available data was reviewed in the patients chart. I agree with the above findings, impression and plan. (Patient seen earlier today. Signature stamp does not reflect patient encounter time.). - Tavares Ortiz MD Subjective Subjective Abdominal distention Patient overall feels better Patient wants to be discharged Objective Last 24 Hour Vital Signs Date Time Temp Pulse Resp B/P (MAP) Pulse Ox O2 Delivery O2 Flow Rate FiO2 12/28/18 08:00 98.6 61 19 115/76 (89) 97 12/28/18 08:00 Room Air 12/28/18 05:50 131/61 12/28/18 04:00 98.0 60 20 117/78 (91) 97 12/28/18 00:00 97.9 61 20 162/70 (100) 100 12/27/18 22:00 120/59 12/27/18 21:00 Room Air 12/27/18 20:00 98.9 63 20 122/60 (80) 99 12/27/18 16:00 97.9 60 19 135/69 (91) 100 12/27/18 14:16 107/63 12/27/18 12:00 97.7 60 18 107/63 (78) 100 Intake and Output 12/27/18 12/28/18 19:00 07:00 Intake Total 1050 ml Balance 1050 ml IV Total 400 ml Other 650 ml # Voids 2 # Bowel Movements 2 2 Laboratory Tests Test 12/28/18 09:30 White Blood Count 9.4 K/UL (4.8-10.8) Red Blood Count 4.09 M/UL (4.70-6.10) L Hemoglobin 12.3 G/DL (14.2-18.0) L Hematocrit 38.1 % (42.0-52.0) L Mean Corpuscular Volume 93 FL (80-99) Mean Corpuscular Hemoglobin 30.1 PG (27.0-31.0) Mean Corpuscular Hemoglobin Concent 32.3 G/DL (32.0-36.0) Red Cell Distribution Width 12.9 % (11.6-14.8) Platelet Count 251 K/UL (150-450) Mean Platelet Volume 6.0 FL (6.5-10.1) L Neutrophils (%) (Auto) 80.9 % (45.0-75.0) H Lymphocytes (%) (Auto) 12.8 % (20.0-45.0) L Monocytes (%) (Auto) 5.2 % (1.0-10.0) Eosinophils (%) (Auto) 0.6 % (0.0-3.0) Basophils (%) (Auto) 0.5 % (0.0-2.0) Sodium Level 145 MMOL/L (136-145) Potassium Level 3.9 MMOL/L (3.5-5.1) Chloride Level 116 MMOL/L (98-107) H Carbon Dioxide Level 17 MMOL/L (21-32) L Anion Gap 12 mmol/L (5-15) Blood Urea Nitrogen 17 mg/dL (7-18) Creatinine 1.1 MG/DL (0.55-1.30) Estimat Glomerular Filtration Rate mL/min (>60) Glucose Level 101 MG/DL (74-106) Calcium Level 8.4 MG/DL (8.5-10.1) L Phosphorus Level 2.5 MG/DL (2.5-4.9) Magnesium Level 2.5 MG/DL (1.8-2.4) H Total Bilirubin 0.3 MG/DL (0.2-1.0) Aspartate Amino Transf (AST/SGOT) 19 U/L (15-37) Alanine Aminotransferase (ALT/SGPT) 40 U/L (12-78) Alkaline Phosphatase 70 U/L (46-116) Total Protein 7.1 G/DL (6.4-8.2) Albumin 3.2 G/DL (3.4-5.0) L Globulin 3.9 g/dL Albumin/Globulin Ratio 0.8 (1.0-2.7) L Height (Feet): 5 Height (Inches): 11.00 Weight (Pounds): 153 General Appearance: WD/WN, no apparent distress, alert Cardiovascular: normal rate Respiratory/Chest: normal breath sounds, no respiratory distress Abdominal Exam: normal bowel sounds, non tender, soft, distended - Soft Extremities: normal range of motion, non-tender Objective Reported diarrhea Cristina Galloway NP Dec 28, 2018 11:50
[2018-12-28 12:00] VITALS: BP 120/82
--- NOTE | 2018-12-28 12:56 | NUR ---
DISCHARGE PLANNED PATIENT WILL RETURN TO [facility] ROOM [address] SKILLED T: [phone] FOR NURSE TO NURSE REPORT [facility] HAS BEEN ARRANGED FOR [address] SE[employer] ENGINE OPTIMIZATION CONSULTANT CAUL PULLER SPOKE WITH PATIENT'S AND SHE IS IN AGREEMENT WITH DISCHARGE PLAN
[2018-12-28] MEDS ORDERED: HYDRALAZINE HCL50 MG ORAL (14:14)
[2018-12-28] MEDS ORDERED: LIALDA1.2 GM ORAL (14:17)
[2018-12-28] MEDS ORDERED: SPIRONOLACTONE50 MG ORAL (14:17)
--- NOTE | 2018-12-28 14:43 | Nephrology Progress Note ---
Assessment/Plan Problem List: (1) Hypokalemia Assessment: persistant (2) UTI (urinary tract infection) (3) HTN (hypertension) (4) Ileus Assessment Low K Volvolus Anemia hypothyroid HTN BPH Dementia DM Plan Per GI- D5W adjust BP meds Trial of Somatostatin and ASACOL K supplement IV and PO PO Aldactone increase dose Hydralazine for BP add Reglan change Rocephin to Cefepime, Pseudomonas UTI TSH wnl clear liquids IV hydrate discussed with RN Subjective ROS Limited/Unobtainable: No Constitutional: Reports: malaise Objective Objective Last 24 Hour Vital Signs Date Time Temp Pulse Resp B/P (MAP) Pulse Ox O2 Delivery O2 Flow Rate FiO2 12/28/18 12:00 98.4 63 18 120/82 (95) 96 12/28/18 08:00 98.6 61 19 115/76 (89) 97 12/28/18 08:00 Room Air 12/28/18 05:50 131/61 12/28/18 04:00 98.0 60 20 117/78 (91) 97 12/28/18 00:00 97.9 61 20 162/70 (100) 100 12/27/18 22:00 120/59 12/27/18 21:00 Room Air 12/27/18 20:00 98.9 63 20 122/60 (80) 99 12/27/18 16:00 97.9 60 19 135/69 (91) 100 Intake and Output 12/27/18 12/28/18 19:00 07:00 Intake Total 1050 ml Balance 1050 ml IV Total 400 ml Other 650 ml # Voids 2 # Bowel Movements 2 2 Laboratory Tests 12/28/18 09:30: White Blood Count 9.4, Red Blood Count 4.09L, Hemoglobin 12.3L, Hematocrit 38.1L , Mean Corpuscular Volume 93, Mean Corpuscular Hemoglobin 30.1, Mean Corpuscular Hemoglobin Concent 32.3, Red Cell Distribution Width 12.9, Platelet Count 251, Mean Platelet Volume 6.0L, Neutrophils (%) (Auto) 80.9H, Lymphocytes (%) (Auto) 12.8L, Monocytes (%) (Auto) 5.2, Eosinophils (%) (Auto) 0.6, Basophils (%) (Auto) 0.5, Sodium Level 145, Potassium Level 3.9, Chloride Level 116H, Carbon Dioxide Level 17L, Anion Gap 12, Blood Urea Nitrogen 17, Creatinine 1.1, Estimat Glomerular Filtration Rate , Glucose Level 101, Calcium Level 8.4L, Phosphorus Level 2.5, Magnesium Level 2.5H, Total Bilirubin 0.3, Aspartate Amino Transf (AST/SGOT) 19, Alanine Aminotransferase (ALT/SGPT) 40, Alkaline Phosphatase 70, Total Protein 7.1, Albumin 3.2L, Globulin 3.9, Albumin/ Globulin Ratio 0.8L Height (Feet): 5 Height (Inches): 11.00 Weight (Pounds): 153 Cardiovascular: normal rate Respiratory/Chest: decreased breath sounds Abdomen: soft, distended Objective no change Herve Marshall MD Dec 28, 2018 14:43
--- NOTE | 2018-12-28 14:49 | Surgery Progress Note ---
Surgery Progress Note Subjective Symptoms: improved, pain absent, tolerating diet, passing flatus, BM Objective Last 24 Hour Vital Signs Date Time Temp Pulse Resp B/P (MAP) Pulse Ox O2 Delivery O2 Flow Rate FiO2 12/28/18 12:00 98.4 63 18 120/82 (95) 96 12/28/18 08:00 98.6 61 19 115/76 (89) 97 12/28/18 08:00 Room Air 12/28/18 05:50 131/61 12/28/18 04:00 98.0 60 20 117/78 (91) 97 12/28/18 00:00 97.9 61 20 162/70 (100) 100 12/27/18 22:00 120/59 12/27/18 21:00 Room Air 12/27/18 20:00 98.9 63 20 122/60 (80) 99 12/27/18 16:00 97.9 60 19 135/69 (91) 100 I&O Intake and Output 12/27/18 12/28/18 18:59 06:59 Intake Total 1050 ml Balance 1050 ml IV Total 400 ml Other 650 ml # Voids 2 # Bowel Movements 2 2 Cardiovascular: RSR Respiratory: clear Abdomen: soft, distended, non-tender, present bowel sounds Extremities: no tenderness, no cyanosis Laboratory Tests Test 12/28/18 09:30 White Blood Count 9.4 K/UL (4.8-10.8) Red Blood Count 4.09 M/UL (4.70-6.10) L Hemoglobin 12.3 G/DL (14.2-18.0) L Hematocrit 38.1 % (42.0-52.0) L Mean Corpuscular Volume 93 FL (80-99) Mean Corpuscular Hemoglobin 30.1 PG (27.0-31.0) Mean Corpuscular Hemoglobin Concent 32.3 G/DL (32.0-36.0) Red Cell Distribution Width 12.9 % (11.6-14.8) Platelet Count 251 K/UL (150-450) Mean Platelet Volume 6.0 FL (6.5-10.1) L Neutrophils (%) (Auto) 80.9 % (45.0-75.0) H Lymphocytes (%) (Auto) 12.8 % (20.0-45.0) L Monocytes (%) (Auto) 5.2 % (1.0-10.0) Eosinophils (%) (Auto) 0.6 % (0.0-3.0) Basophils (%) (Auto) 0.5 % (0.0-2.0) Sodium Level 145 MMOL/L (136-145) Potassium Level 3.9 MMOL/L (3.5-5.1) Chloride Level 116 MMOL/L (98-107) H Carbon Dioxide Level 17 MMOL/L (21-32) L Anion Gap 12 mmol/L (5-15) Blood Urea Nitrogen 17 mg/dL (7-18) Creatinine 1.1 MG/DL (0.55-1.30) Estimat Glomerular Filtration Rate mL/min (>60) Glucose Level 101 MG/DL (74-106) Calcium Level 8.4 MG/DL (8.5-10.1) L Phosphorus Level 2.5 MG/DL (2.5-4.9) Magnesium Level 2.5 MG/DL (1.8-2.4) H Total Bilirubin 0.3 MG/DL (0.2-1.0) Aspartate Amino Transf (AST/SGOT) 19 U/L (15-37) Alanine Aminotransferase (ALT/SGPT) 40 U/L (12-78) Alkaline Phosphatase 70 U/L (46-116) Total Protein 7.1 G/DL (6.4-8.2) Albumin 3.2 G/DL (3.4-5.0) L Globulin 3.9 g/dL Albumin/Globulin Ratio 0.8 (1.0-2.7) L Plan Problems: (1) Ileus (2) Sigmoid volvulus Assessment & Plan: 78 year old male with concerns of sigmoid volvulus. afebrile, HD stable, abnormal electrolytes, distended, tympanic, no abd pain. states he is having flatus now. does not seem to clinically have sigmoid volvulus and CT reviewed and more consistent with ileus. Remains very distended, tympanic, non tender. afebrile, HD stable, no leukocytosis hypo K okay for diet iv fluids replace electrolytes trend labs will follow with serial exams given colonoscopy findings, exam, kub results, labs, and clinical course there is consideration for colectomy. I discussed this option with patient. he states he needs to talk with his family first. had not talked to family yet. spoke with patient today. states he does not want surgery. c diff negative otherwise stable. discharge planning exam unchanged and stable. labs noted Chava Smith Dec 28, 2018 14:49
--- NOTE | 2018-12-28 16:26 | NUR ---
NURSE NOTES: Patient discharged to [facility]. Patient only had beanie. PICC line removed, pressure applied. No bleeding at site. Discharge packet with discharge instructions given to ambulance personnel. Report given to Chasidy at facility. Patient stable upon discharge.
--- NOTE | 2018-12-30 09:00 | Discharge Summary ---
Discharge Summary Discharge Summary _ DATE OF ADMISSION: 12/11/2018 DATE OF DISCHARGE: 12/28/2018 DISCHARGED BY: Dr Chand REASON FOR ADMISSION: 78 years old male, with past medical history of CVA with right-sided paresis, congestive heart failure, hypertension, diabetes mellitus, gastroparesis, hypothyroidism, BPH, depression, resident of senior care facility, DNR/DNI status, presented with chief complaint of abdominal distention and evidence of severe colonic ileus on x-ray done at outside facility , with onset for 1 day. Patient by himself had no symptoms . He denied chest pain, he denied nausea, vomiting. No fever, no chills. Upon evaluation signs revealed mild elevation in blood pressure 158/73, otherwise stable vital signs. Laboratory workup revealed no leukocytosis, hemoglobin 12.9, hematocrit 38.7. ESR 28. Potassium 1.9. BUN 20, creatinine 1.2. G Glucose 108. ECG revealed normal sinus rhythm, no acute ischemic changes. Urinalysis revealed evidence of possible reveal evidence of UTI. CT of the abdomen and pelvis marked colonic distention, evident previously but increased from previous exam of 04/23/2017. There was an abrupt transition at the distal sigmoid, with suggestion of slight swirling of the colonic mesenteric fat, raising possibility of a sigmoid volvulus. However, a proximal transition or narrowing was not demonstrated, so findings could just Represent chronic functional changes. Consider surgical evaluation and/or colonoscopy Colonic diverticulosis. No evidence of diverticulitis Barium enema subsequently was done and revealed failure of passage of contrast into the sigmoid colon, possibly indicative of sigmoid volvulus or other obstructive pathology, as described on recent CT scan. However, this could also just be due to insufficient contrast instillation, as much of the contrast leaked out of the patient due to incontinence and no more water-soluble contrast was available Initial replacement of potassium was done in the emergency room. Patient was admitted for surgical evaluation and further management. CONSULTANTS: GI specialist Dr. Ortiz oil field operator Dr. Marshall surgery Dr. Smith associate material handler Dr. Mata [facility] COURSE: Patient admitted and started on the IV fluids Patient was kept n.p.o. GI and surgical consult were requested. Surgeon seen patient in emergency department. Patient was hemodynamically stable, distended, tympanic, but no abdominal pain and was afebrile. Per surgeon, results of the CT were more consistent with ileus. Renal parameters and electrolytes were closely monitored, Electrolytes further corrected as needed as per oil field operator recommendation. Patient was followed up with serial KUB. Conservative management was attempted. Next day abdominal x-ray demonstrated marked gaseous dilation of colon, similar to seen on the CT scan. Findings were consistent with distal colonic obstruction. Abdominal exam demonstrated distended but nontender abdomen. Patient was passing flatus, but no significant BM. GI specialist seen and evaluated patient and scheduled patient for colonoscopy. Patient subsequently undergone on 12/11 colonoscopy with biopsy. During the procedure identified area of edema at about 30 cm from the anal verge, causing a kind of colonic outlet obstruction, status post biopsy. Also status post biopsy of the sigmoid colon with some inflammation. Patient noted to have severe colonic dilation and ileus, status post decompression almost 3600 mL of fluid was aspirated in this procedure. Sigmoid biopsy revealed moderately active colitis with features of chronic injury, no dysplasia. Rectosigmoid biopsy revealed moderately active colitis with features of chronic injury, no dysplasia. After procedure patient started on a liquid diet. Electrolytes were further corrected as needed by oil field operator. Patient was continued on IV hydration. GI specialist recommended that patient may benefit to repeat colonoscopy, when more stable since this time it was incomplete examination, to rule out villous adenomatous as a cause of diarrhea. Stool for C. difficile was negative. Surgeon closely followed. Given colonoscopy findings, KUB results, laboratory work and clinical course there was consideration for colectomy. Option was discussed with the patient , who verbalizes that he did not want surgery. Diet was slowly advanced as tolerated. Patient was able to tolerate diet. Patient was started on trial of Asacol. Pain management was addressed, and pain was controlled. Antiemetic provided as needed. Supportive care provided. Hypokalemia was resistant to replacement, but finally resolved, prior to discharge stable. Magnesium was stable. LFT and TSH stable. Urine culture revealed Pseudomonas aeruginosa. Stool for C. difficile was negative. Stool culture was negative. Patient was on antibiotics for treatment of UTI. Budget Director closely followed. Budget Director titrated antihypertensive medication regimen to keep blood pressure under control. Potassium supplements were provided via IV and oral route and finally potassium stabilized. Patient started on Aldactone and dose was increased. District Resource Officer followed. Hypertension and hypokalemia with enlarged adrenals/seen on CT scan, raised concern for Conn's syndrome. However, per associate material handler unable to assess PAC/PRA until patient on Aldactone. Outpatient follow-up recommended as needed. Blood sugar was managed with sliding scale of insulin. Hemoglobin A1c at goal 6.2. Hemoglobin and hematocrit were closely monitored and remained stable. Prior to discharge hemoglobin 12.3 hematocrit 38.1. Folate and B12 within normal limits. Patient clinically stabilized and was ready for transfer to senior care facility for continuation of care. FINAL DIAGNOSES: Sigmoid volvulus Ileus with chronic abdominal distention Severe hypokalemia Colitis Pseudomonas UTI Diabetes mellitus Hypothyroidism Hypertension BPH Dementia Anemia DISCHARGE MEDICATIONS: See Medication Reconciliation list. DISCHARGE INSTRUCTIONS: Patient was discharged to the senior care facility. Follow up with medical doctor at the facility. I have been assigned to dictate discharge summary for this account. I was not involved in the patient's management. Kalyn Crowder NP Dec 30, 2018 08:59
== END 2018-12-28 15:45 | DRG 389 ==
LOC: EMR 23:51 → 2E 12-11 01:58 → EDBEDREQ 12-11 06:57 → 4E 12-24 13:50
PROC: 0DBN8ZX Excision of Sigmoid Colon, Via Natural or Artificial Opening Endoscopic, Diagnostic (ICD-10-PCS; principal; 2018-12-11)
PROC: 02HV33Z Insertion of Infusion Device into Superior Vena Cava, Percutaneous Approach (ICD-10-PCS; 2018-12-18)
PROC: B518ZZA Fluoroscopy of Superior Vena Cava, Guidance (ICD-10-PCS; 2018-12-18)
DX: K56.2 Volvulus (principal); N39.0 Urinary tract infection, site not specified; I69.951 Hemiplegia and hemiparesis following unspecified cerebrovascular disease affecting right dominant side; K56.7 Ileus, unspecified; E87.6 Hypokalemia; F03.90 Unspecified dementia, unspecified severity, without behavioral disturbance, psychotic disturbance, mood disturbance, and anxiety; I11.0 Hypertensive heart disease with heart failure; I50.9 Heart failure, unspecified; N40.0 Benign prostatic hyperplasia without lower urinary tract symptoms; E78.5 Hyperlipidemia, unspecified; F32.9 Major depressive disorder, single episode, unspecified; E03.9 Hypothyroidism, unspecified; E11.9 Type 2 diabetes mellitus without complications; Z66 Do not resuscitate; K57.30 Diverticulosis of large intestine without perforation or abscess without bleeding; B96.5 Pseudomonas (aeruginosa) (mallei) (pseudomallei) as the cause of diseases classified elsewhere; K31.84 Gastroparesis
CPT/HCPCS: 36415; 36569; 74018; 74150; 74270; 76937; 80048; 80053; 80076; 81003; 81050; 82150; 82607; 82746; 83036; 83497; 83690; 83735; 83880; 84100; 84133; 84146; 84260; 84300; 84439; 84443; 84550; 85007; 85025; 85610; 85651; 85730; 86140; 87045; 87081; 87086; 87181; 87324; 94003; 94150; 99291; J1815; J2405; J8499

== ENCOUNTER 2019-02-13 14:03 | Inpatient (IN) | payer MEDICARE, MEDICAID ==
[~2019-02-13] VITALS: Ht 175.3 cm; Wt 70.5 kg
[~2019-02-13 14:03] MED LIST changes: +LIALDA1.2 GM ORAL; +SPIRONOLACTONE50 MG ORAL
[2019-02-13] MEDS ORDERED: NOVOLOG100 UNIT/4 SQ (14:07)
[2019-02-13] MEDS ORDERED: BETIMOL5 M2 BOTH EYES (14:07)
[2019-02-13] MEDS ORDERED: LATANOPROST2.5 ML BOTH EYES (14:07)
--- NOTE | 2019-02-13 14:10 | NUR ---
ED Nurse Note: Pt DANIAL from [facility] due to Failure to thrive x 1 week, pt has not been able to eat and function normally per paramedics. AOx3 (name, place, purpose), VSS sujatha. Will cont to monitor.
--- NOTE | 2019-02-13 14:25 | NUR ---
ED Nurse Note: Blood and urine collected and sent to lab.
[2019-02-13 15:11] LABS: BASOPHILS % (AUTO) 0.7 % (0.0-2.0); EOSINOPHILS % (AUTO) 0.4 % (0.0-3.0); HEMATOCRIT 39.3 % (42.0-52.0); HEMOGLOBIN 12.9 G/DL (14.2-18.0); LYMPHOCYTES % (AUTO) 16.9 % (20.0-45.0); MEAN CORPUSCULAR VOLUME 93 FL (80-99); NEUTROPHILS % (AUTO) 77.1 % (45.0-75.0); PLATELET COUNT 257 K/UL (150-450); RED BLOOD COUNT 4.23 M/UL (4.70-6.10); RED CELL DISTRIBUTION WIDTH 13.9 % (11.6-14.8); WHITE BLOOD COUNT 7.5 K/UL (4.8-10.8)
[2019-02-13 15:18] LABS: ANION GAP 6 mmol/L (5-15); BLOOD UREA NITROGEN 17 mg/dL (7-18); CALCIUM 8.4 MG/DL (8.5-10.1); CARBON DIOXIDE 30 MMOL/L (21-32); CHLORIDE 112 MMOL/L (98-107); CREATININE 0.9 MG/DL (0.55-1.30); POTASSIUM 4.4 MMOL/L (3.5-5.1); SODIUM 148 MMOL/L (136-145)
[2019-02-13 15:20] LABS: APPEARANCE,URINE CLEAR; BILIRUBIN, URINE NEGATIVE (NEGATIVE); GLUCOSE, URINE (UA) NEGATIVE (NEGATIVE); KETONES,URINE NEGATIVE (NEGATIVE); LEUKOCYTE ESTERASE ,URINE 3+ (NEGATIVE); NITRITE,URINE NEGATIVE (NEGATIVE); PH,URINE 5 (4.5-8.0); PROTEIN,URINE 2+ (NEGATIVE); UROBILINOGEN,URINE NORMAL MG/DL (0.0-1.0)
[2019-02-13 15:27] VITALS: BP 151/68
[2019-02-13 15:33] LABS: ALANINE AMINOTRANSFERASE 57 U/L (12-78); ALBUMIN 2.5 G/DL (3.4-5.0); ALBUMIN/GLOBULIN RATIO 0.6 (1.0-2.7); ALKALINE PHOSPHATASE 88 U/L (46-116); ASPARTATE AMINO TRANSFERASE 42 U/L (15-37); BILIRUBIN,TOTAL 0.5 MG/DL (0.2-1.0)
[2019-02-13 15:35] LABS: COLOR,URINE YELLOW
--- NOTE | 2019-02-13 16:11 | Emergency Room Report ---
History of Present Illness General Chief Complaint: Generalized Weakness Source: Medical Record, EMS Present Illness HPI 78-year-old male presents ED for evaluation. Brought in by EMS from care home facility. Presenting with weakness and reduced appetite and failure to thrive times one week. Patient nonverbal at baseline. Unable to provide any additional history at this time. No signs of distress. No reported fevers or chills. No other aggravating relieving factors. No other associated symptoms Allergies: Coded Allergies: No Known Allergies (Unverified , 04/22/17) Patient History Past Medical History: DM, HTN, CHF, CVA/TIA Past Surgical History: none Pertinent Family History: none Social History: Denies: smoking, alcohol use, drug use Immunizations: UTD Reviewed Nursing Documentation: PMH: Agreed; PSxH: Agreed Nursing Documentation-PMH Hx Cardiac Problems: Yes - HEART FAILURE Hx Hypertension: Yes Hx COPD: No - ANEMIA, HYPOKALEMIA Hx Diabetes: Yes Hx Cancer: No Hx Gastrointestinal Problems: Yes - Gastroparesis Hx Neurological Problems: Yes - Prostatic hyperplasia Hx Cerebrovascular Accident: Yes - R SIDE DEFICIT Hx Transient Ischemic Attacks: Yes Hx Weakness: Yes Review of Systems All Other Systems: limited Physical Exam Vital Signs Date Time Temp Pulse Resp B/P (MAP) Pulse Ox O2 Delivery O2 Flow Rate FiO2 02/13/19 14:00 98.4 62 16 142/76 (98) 100 Room Air Sp02 EP Interpretation: reviewed, normal General Appearance: lethargic, other - nonverbal Head: normocephalic, atraumatic Eyes: bilateral eye normal inspection, bilateral eye PERRL ENT: hearing grossly normal, normal pharynx, no angioedema, normal voice Neck: full range of motion, supple/symm/no masses Respiratory: chest non-tender, lungs clear, normal breath sounds, speaking full sentences Cardiovascular #1: regular rate, rhythm, no edema Cardiovascular #2: 2+ carotid (R), 2+ carotid (L), 2+ radial (R), 2+ radial (L) , 2+ dorsalis pedis (R), 2+ dorsalis pedis (L) Gastrointestinal: normal bowel sounds, non tender, soft, non-distended, no guarding, no rebound Rectal: deferred Genitourinary: normal inspection, no CVA tenderness Musculoskeletal: back normal, gait/station normal, normal range of motion, non- tender Neurologic: other - nonverbal Psychiatric: other - nonverbal Reflexes: 3+ bicep (R), 3+ bicep (L), 3+ tricep (R), 3+ tricep (L), 3+ knee (R) , 3+ knee (L) Skin: normal color, no rash, warm/dry, well hydrated Lymphatic: no adenopathy Medical Decision Making Diagnostic Impression: Primary Impression: Episode of generalized weakness Additional Impressions: Encephalopathy Dehydration Failure to thrive Qualified Codes: R62.7 - Adult failure to thrive ER Course Hospital Course 78-year-old male presenting to ED with generalized weakness x 1 week Differential diagnoses include: Pneumonia, UTI, sepsis, dehydration, failure to thrive Clinical course Patient placed on stretcher. On cafeteria monitor with stable vitals. After initial history and physical, I ordered labs, IV fluids, EKG, chest x-ray, blood cultures, UA. Labs - no leukocytosis, hb/hct stable, Na 148, BUN/Cr ok, lactic ok, UA negative EKG - paced rhyhm. no acute ischemic changes interpreted by me CXR - no acute process. pacemaker noted Case discussed with Dr Chand and they agreed to admit patient to their service for further care and support I feel this is a highly complex case requiring extensive working including EKG/ Rhythm strip, Xray/CT/US, Blood/urine lab work, repeat exams while in ED, and administration of strong opiates/narcotics for pain control, admission to hospital or close patient follow up. Diagnosis - failure to thrive, episode of generalized weakness, encephalopathy, dehydration Patient admitted to floor in serious condition Labs Test 02/13/19 14:45 White Blood Count 7.5 K/UL (4.8-10.8) Red Blood Count 4.23 M/UL (4.70-6.10) Hemoglobin 12.9 G/DL (14.2-18.0) Hematocrit 39.3 % (42.0-52.0) Mean Corpuscular Volume 93 FL (80-99) Mean Corpuscular Hemoglobin 30.5 PG (27.0-31.0) Mean Corpuscular Hemoglobin Concent 32.8 G/DL (32.0-36.0) Red Cell Distribution Width 13.9 % (11.6-14.8) Platelet Count 257 K/UL (150-450) Mean Platelet Volume 6.7 FL (6.5-10.1) Neutrophils (%) (Auto) 77.1 % (45.0-75.0) Lymphocytes (%) (Auto) 16.9 % (20.0-45.0) Monocytes (%) (Auto) 5.0 % (1.0-10.0) Eosinophils (%) (Auto) 0.4 % (0.0-3.0) Basophils (%) (Auto) 0.7 % (0.0-2.0) Urine Color Yellow Urine Appearance Clear Urine pH 5 (4.5-8.0) Urine Specific [place] 1.020 (1.005-1.035) Urine Protein 2+ (NEGATIVE) Urine Glucose (UA) Negative (NEGATIVE) Urine Ketones Negative (NEGATIVE) Urine Blood Negative (NEGATIVE) Urine Nitrite Negative (NEGATIVE) Urine Bilirubin Negative (NEGATIVE) Urine Urobilinogen Normal MG/DL (0.0-1.0) Urine Leukocyte Esterase 3+ (NEGATIVE) Urine RBC 0-2 /HPF (0 - 0) Urine WBC 5-10 /HPF (0 - 0) Urine Squamous Epithelial Cells None /LPF (NONE/OCC) Urine Bacteria Few /HPF (NONE) Sodium Level 148 MMOL/L (136-145) Potassium Level 4.4 MMOL/L (3.5-5.1) Chloride Level 112 MMOL/L (98-107) Carbon Dioxide Level 30 MMOL/L (21-32) Anion Gap 6 mmol/L (5-15) Blood Urea Nitrogen 17 mg/dL (7-18) Creatinine 0.9 MG/DL (0.55-1.30) Estimat Glomerular Filtration Rate mL/min (>60) Glucose Level 121 MG/DL (74-106) Lactic Acid Level 1.90 mmol/L (0.4-2.0) Calcium Level 8.4 MG/DL (8.5-10.1) Total Bilirubin 0.5 MG/DL (0.2-1.0) Aspartate Amino Transf (AST/SGOT) 42 U/L (15-37) Alanine Aminotransferase (ALT/SGPT) 57 U/L (12-78) Alkaline Phosphatase 88 U/L (46-116) Pro-B-Type Natriuretic Peptide 1007 pg/mL (0-125) Total Protein 6.6 G/DL (6.4-8.2) Albumin 2.5 G/DL (3.4-5.0) Globulin 4.1 g/dL Albumin/Globulin Ratio 0.6 (1.0-2.7) Thyroid Stimulating Hormone (TSH) 1.919 uiU/mL (0.358-3.740) EKG Diagnostic Results Rate: bradycardiac Rhythm: other - paced ST Segments: no acute changes ASA given to the pt in ED: No Rhythm Strip Diag. Results EP Interpretation: yes Rhythm: no PVC's, no ectopy Chest X-Ray Diagnostic Results Chest X-Ray Diagnostic Results : Chest X-Ray Ordered: Yes # of Views/Limited/Complete: 1 View Indication: Other EP Interpretation: Yes Interpretation: no consolidation, no effusion, no pneumothorax, no acute cardiopulmonary disease, other - pacemaker Impression: No acute disease Electronically Signed by: Electronically signed by Carrington Avila MD Last Vital Signs Date Time Temp Pulse Resp B/P (MAP) Pulse Ox O2 Delivery O2 Flow Rate FiO2 02/13/19 15:27 98.4 61 16 151/68 100 Room Air Status: improved Disposition: ADMITTED INPATIENT Condition: Serious Carrington Avila MD February 13, 2019 16:11
[2019-02-13 16:41] VITALS: BP 149/85
--- NOTE | 2019-02-13 16:52 | NUR ---
ED Nurse Note: Report given to ANA PAULA Kim at ext [phone]. Pt to be transfered to [place] [id number] [facility] per protocol.
[2019-02-13 17:23] VITALS: BP 165/78
--- NOTE | 2019-02-13 17:48 | NUR ---
NURSE NOTES: Patient arrived the unit around 1715; I received report from ER Nurse, Petrona; Patient awake and alert x3; no sing of distress and shortness of breath; no sign of chest pain; IV Left ForArm, flushes well; skin intact; bed at lowest position, side rails up x2, breaks engaged; call light within reach. will keep monitoring.
--- NOTE | 2019-02-13 17:58 | NUR ---
NURSE NOTES: I communicated MD Chand to get admission order for DVT profelaxis, code status, Diet, oxygen and medications that Md laguna order. waiting for order.
--- NOTE | 2019-02-13 18:17 | NUR ---
NURSE NOTES: ER didn't bring patient's chart when they transfer patient to our floor; am waiting. I just called and remind Petrona, the nurse who gave me report to send the chart to our floor.
--- NOTE | 2019-02-13 18:27 | NUR ---
NURSE NOTES: I paged MD Chand to get orders; waiting for orders.
[2019-02-13] MEDS ORDERED: Simethicone 80mg tab ORAL PRN (19:00)
--- NOTE | 2019-02-13 19:58 | NUR ---
HAND-OFF: Report given to ANA PAULA Grover.
[2019-02-13 20:00] VITALS: BP 159/79
--- NOTE | 2019-02-13 20:00 | NUR ---
NURSE NOTES: PATIENT IN BED. ON RA, NO SOB, NO ACUTE DISTRESS, DENIES PAIN. LFA IV INTACT, PATENT, SALINE LOCK. BED IN LOWEST POSITION, LOCKED, ALARMS ON. CALL LIGHT IN REACH.
[2019-02-13] MEDS ORDERED: Sennosides 8.6mg tab ORAL PRN (21:00)
[2019-02-13] MEDS: NovoLOG Insulin Flexpen SUBQ SCH (21:00)
[2019-02-13] MEDS ORDERED: Tamsulosin 0.4mg cap ORAL SCH (21:00)
[2019-02-13] MEDS: Latanoprost 0.005% Opth 2.5ml Soln BOTH EYES SCH (21:32)
[2019-02-13] MEDS: Spironolactone 50mg tab ORAL SCH (21:32)
[2019-02-13] MEDS: HydrALAZINE 25mg tab ORAL SCH (21:32)
[2019-02-13] MEDS ORDERED: HydrALAZINE 50mg tab ORAL SCH (22:00)
--- NOTE | 2019-02-13 22:31 | General Progress Note ---
Assessment/Plan Assessment/Plan: GI CONSULT Recommendations - Calorie count - Remeron trial - Push po - check CT abd / Plevis - check stool OB Thank you Naresh Sher MD Subjective Allergies: Coded Allergies: No Known Allergies (Unverified , 04/22/17) Objective Last 24 Hour Vital Signs Date Time Temp Pulse Resp B/P (MAP) Pulse Ox O2 Delivery O2 Flow Rate FiO2 02/13/19 21:32 159/79 02/13/19 21:32 65 159/79 02/13/19 17:33 Room Air 02/13/19 17:23 98.9 60 19 165/78 (107) 100 02/13/19 16:52 98.4 61 16 151/68 100 Room Air 02/13/19 16:41 98.4 65 20 149/85 100 Room Air 02/13/19 15:27 98.4 61 16 151/68 100 Room Air 02/13/19 14:15 62 16 Room Air 02/13/19 14:00 98.4 62 16 142/76 (98) 100 Room Air Laboratory Tests 02/13/19 14:45: White Blood Count 7.5, Red Blood Count 4.23L, Hemoglobin 12.9L, Hematocrit 39.3L , Mean Corpuscular Volume 93, Mean Corpuscular Hemoglobin 30.5, Mean Corpuscular Hemoglobin Concent 32.8, Red Cell Distribution Width 13.9, Platelet Count 257, Mean Platelet Volume 6.7, Neutrophils (%) (Auto) 77.1H, Lymphocytes ( %) (Auto) 16.9L, Monocytes (%) (Auto) 5.0, Eosinophils (%) (Auto) 0.4, Basophils (%) (Auto) 0.7, Urine Color Yellow, Urine Appearance Clear, Urine pH 5 , Urine Specific [place] 1.020, Urine Protein 2+H, Urine Glucose (UA) Negative, Urine Ketones Negative, Urine Blood Negative, Urine Nitrite Negative, Urine Bilirubin Negative, Urine Urobilinogen Normal, Urine Leukocyte Esterase 3+H, Urine RBC 0-2H, Urine WBC 5-10H, Urine Squamous Epithelial Cells None, Urine Bacteria Few, Sodium Level 148H, Potassium Level 4.4, Chloride Level 112H, Carbon Dioxide Level 30, Anion Gap 6, Blood Urea Nitrogen 17, Creatinine 0.9, Estimat Glomerular Filtration Rate , Glucose Level 121H, Lactic Acid Level 1.90 , Calcium Level 8.4L, Total Bilirubin 0.5, Aspartate Amino Transf (AST/SGOT) 42H , Alanine Aminotransferase (ALT/SGPT) 57, Alkaline Phosphatase 88, Pro-B-Type Natriuretic Peptide 1007H, Total Protein 6.6, Albumin 2.5L, Globulin 4.1, Albumin/Globulin Ratio 0.6L, Thyroid Stimulating Hormone (TSH) 1.919 Height (Feet): 5 Height (Inches): 9.00 Weight (Pounds): 180 Naresh Sher MD February 13, 2019 22:31
--- NOTE | 2019-02-13 23:03 | General Progress Note ---
Assessment/Plan Assessment/Plan: GI CONSULTE Dictated. Thank you. Naresh Sher MD Subjective Allergies: Coded Allergies: No Known Allergies (Unverified , 04/22/17) Objective Last 24 Hour Vital Signs Date Time Temp Pulse Resp B/P (MAP) Pulse Ox O2 Delivery O2 Flow Rate FiO2 02/13/19 21:32 159/79 02/13/19 21:32 65 159/79 02/13/19 20:00 99.1 65 20 159/79 (105) 100 02/13/19 17:33 Room Air 02/13/19 17:23 98.9 60 19 165/78 (107) 100 02/13/19 16:52 98.4 61 16 151/68 100 Room Air 02/13/19 16:41 98.4 65 20 149/85 100 Room Air 02/13/19 15:27 98.4 61 16 151/68 100 Room Air 02/13/19 14:15 62 16 Room Air 02/13/19 14:00 98.4 62 16 142/76 (98) 100 Room Air Laboratory Tests 02/13/19 14:45: White Blood Count 7.5, Red Blood Count 4.23L, Hemoglobin 12.9L, Hematocrit 39.3L , Mean Corpuscular Volume 93, Mean Corpuscular Hemoglobin 30.5, Mean Corpuscular Hemoglobin Concent 32.8, Red Cell Distribution Width 13.9, Platelet Count 257, Mean Platelet Volume 6.7, Neutrophils (%) (Auto) 77.1H, Lymphocytes ( %) (Auto) 16.9L, Monocytes (%) (Auto) 5.0, Eosinophils (%) (Auto) 0.4, Basophils (%) (Auto) 0.7, Urine Color Yellow, Urine Appearance Clear, Urine pH 5 , Urine Specific [place] 1.020, Urine Protein 2+H, Urine Glucose (UA) Negative, Urine Ketones Negative, Urine Blood Negative, Urine Nitrite Negative, Urine Bilirubin Negative, Urine Urobilinogen Normal, Urine Leukocyte Esterase 3+H, Urine RBC 0-2H, Urine WBC 5-10H, Urine Squamous Epithelial Cells None, Urine Bacteria Few, Sodium Level 148H, Potassium Level 4.4, Chloride Level 112H, Carbon Dioxide Level 30, Anion Gap 6, Blood Urea Nitrogen 17, Creatinine 0.9, Estimat Glomerular Filtration Rate , Glucose Level 121H, Lactic Acid Level 1.90 , Calcium Level 8.4L, Total Bilirubin 0.5, Aspartate Amino Transf (AST/SGOT) 42H , Alanine Aminotransferase (ALT/SGPT) 57, Alkaline Phosphatase 88, Pro-B-Type Natriuretic Peptide 1007H, Total Protein 6.6, Albumin 2.5L, Globulin 4.1, Albumin/Globulin Ratio 0.6L, Thyroid Stimulating Hormone (TSH) 1.919 Height (Feet): 5 Height (Inches): 9.00 Weight (Pounds): 180 Naresh Sher MD February 13, 2019 23:03
[2019-02-14] VITALS: BP 142/88
[2019-02-14 04:00] VITALS: BP 101/84
[2019-02-14] MEDS: HydrALAZINE 25mg tab ORAL SCH ×3 (05:31→21:08)
--- NOTE | 2019-02-14 05:45 | Consultation ---
DATE OF CONSULTATION: 02/13/2019 GASTROLOGY CONSULTATION CONSULTING PHYSICIAN: Naresh Sher M.D. CHIEF COMPLAINT: I was asked to see this patient by Dr. Jose Francisco Chand for evaluation of anorexia. HISTORY OF PRESENT ILLNESS: The patient is a pleasant 78-year-old man from a [facility] who was brought in due to anorexia. There are no exact records available, but apparently the patient has poor oral intake and has decreased albumin level. The patient denies any abdominal pain, nausea, or vomiting. He does not like the foods that are served to him. There is no gastrointestinal history noted for this patient. PAST MEDICAL HISTORY: History of diabetes, hypertension, congestive heart failure, history of stroke, transient ischemic attack, history of heart failure, history of anemia, history of gastroparesis, and history of prostatic hypertrophy. FAMILY HISTORY: Noncontributory. SOCIAL HISTORY: The patient does not smoke or drink alcohol. REVIEW OF SYSTEMS: Otherwise negative. PHYSICAL EXAMINATION: GENERAL: A pleasant man, seen in his room. HEENT: Normocephalic and atraumatic. Sclerae anicteric. Oropharynx clear. NECK: Supple. CHEST: Clear to auscultation. CARDIOVASCULAR: Revealed regular rate. ABDOMEN: Soft, nondistended, and nontender with good bowel sounds. There is some degree of left-sided distention in the abdomen. There was an old midline scar, which the patient stated was an appendectomy scar . ASSESSMENT: This patient presents with anorexia of unclear etiology. The patient's laboratory parameters have been reviewed. I will check a stool occult blood and give him a trial of Remeron. I would also do a calorie count and a CT scan of the abdomen. The results of all these can be discussed with the patient's family. Obviously, the gastrostomy tube can be placed to recommend to supplement oral diet, and this will be discussed with family. RECOMMENDATIONS: Per above discussion and per orders written in the chart. Thank you for asking me to participate in the care of this patient. Naresh Sher M.D. DR: KOFI JOB#: [id number] CC: MARKUS
[2019-02-14] MEDS: NovoLOG Insulin Flexpen SUBQ SCH ×4 (06:08→21:00)
[2019-02-14] MEDS ORDERED: Levothyroxine 25mcg tab ORAL SCH (06:30)
--- NOTE | 2019-02-14 07:05 | NUR ---
HAND-OFF: Report given to DEEPA GOSS.
--- NOTE | 2019-02-14 07:07 | NUR ---
NURSE NOTES: Patient awake, on room air, no sign of distress and shortness of breath; no sign of chest pain; SCD on; IV LFA flushes well; OB-stool needs to be collect and [facility] notified; collecting container at the bed side; patine on calory count starting from this morning, [facility] notified; side rails up x3, breaks engaged, bed at lowest position; call light within reach; will keep monitoring blood sugar.
[2019-02-14 08:00] VITALS: BP 148/71
[2019-02-14] MEDS: Multivitamin w/Minerals tab ORAL SCH (08:58)
[2019-02-14] MEDS: Lactobacillus-GG tablet ORAL SCH ×2 (08:58→18:00)
[2019-02-14] MEDS: Aspirin EC 81mg tab ORAL SCH (08:58)
[2019-02-14] MEDS: Spironolactone 50mg tab ORAL SCH ×2 (08:58→21:09)
[2019-02-14] MEDS ORDERED: Memantine 10mg tab ORAL SCH (09:00)
[2019-02-14] MEDS ORDERED: Spironolactone 50mg tab ORAL SCH (09:00)
[2019-02-14] MEDS ORDERED: Ascorbic Acid 500mg tab ORAL SCH (09:00)
[2019-02-14 09:10] LABS: BASOPHILS % (AUTO) 0.8 % (0.0-2.0); EOSINOPHILS % (AUTO) 0.7 % (0.0-3.0); HEMATOCRIT 39.3 % (42.0-52.0); HEMOGLOBIN 12.8 G/DL (14.2-18.0); LYMPHOCYTES % (AUTO) 17.4 % (20.0-45.0); MEAN CORPUSCULAR VOLUME 93 FL (80-99); MONOCYTES % (AUTO) 5.1 % (1.0-10.0); PLATELET COUNT 223 K/UL (150-450); RED BLOOD COUNT 4.24 M/UL (4.70-6.10); RED CELL DISTRIBUTION WIDTH 13.6 % (11.6-14.8); WHITE BLOOD COUNT 7.5 K/UL (4.8-10.8)
[2019-02-14 09:39] LABS: ALANINE AMINOTRANSFERASE 46 U/L (12-78); ALBUMIN 2.6 G/DL (3.4-5.0); ALBUMIN/GLOBULIN RATIO 0.7 (1.0-2.7); ALKALINE PHOSPHATASE 83 U/L (46-116); ANION GAP 5 mmol/L (5-15); ASPARTATE AMINO TRANSFERASE 23 U/L (15-37); BILIRUBIN,TOTAL 0.3 MG/DL (0.2-1.0); BLOOD UREA NITROGEN 17 mg/dL (7-18); CALCIUM 8.4 MG/DL (8.5-10.1); CARBON DIOXIDE 29 MMOL/L (21-32); CHLORIDE 114 MMOL/L (98-107); CREATININE 0.9 MG/DL (0.55-1.30); SODIUM 149 MMOL/L (136-145)
[2019-02-14 10:00] LABS: POTASSIUM 2.4 MMOL/L (3.5-5.1)
--- NOTE | 2019-02-14 10:03 | NUR ---
NURSE NOTES: Received a call from Molly Villegas, patient's K 2.4; MD Chand and charge nurse, Scott notified. Waiting for order.
--- NOTE | 2019-02-14 10:24 | NUR ---
NURSE NOTES: MD Chand inform me to communicated MD Haider regarding the critical lab result for K 2.4; I communicate MD Haider regarding patinet's K 2.4 and waiting for order.
[2019-02-14] MEDS: Sodium Chloride for KCL Premix X 3hrs IV SCH ×2 (10:49→14:02)
--- NOTE | 2019-02-14 11:13 | NUR ---
NURSE NOTES: Urine culture collection order received from Mynor Avilez, container left at the bed side.
--- NOTE | 2019-02-14 11:50 | NUR ---
NURSE NOTES: Order received from MD Real to maggie smith
[2019-02-14 12:00] VITALS: BP 117/70
--- NOTE | 2019-02-14 12:54 | Consultation ---
Consult Note Consult Note I was asked to evaluate at the request of Dr sutton for persistant hypokalemia known to me from his previous admission Chief Complaint: Generalized Weakness HPI 78-year-old male presents ED for evaluation. Brought in by EMS from nursing home facility. Presenting with weakness and reduced appetite and failure to thrive times one week. Patient nonverbal at baseline. Unable to provide any additional history at this time. No signs of distress. No reported fevers or chills. No other aggravating relieving factors. No other associated symptoms No Known Allergies (Unverified , 04/22/17) Past Medical History: DM, HTN, CHF, CVA/TIA Hx Cardiac Problems: Yes - HEART FAILURE Hx Hypertension: Yes Hx COPD: No - ANEMIA, HYPOKALEMIA Hx Diabetes: Yes Hx Cancer: No Hx Gastrointestinal Problems: Yes - Gastroparesis Hx Neurological Problems: Yes - Prostatic hyperplasia Hx Cerebrovascular Accident: Yes - R SIDE DEFICIT Hx Transient Ischemic Attacks: Yes Hx Weakness: Yes examined interviewed data reviewed . Assessment/Plan HypoKalemia UTI HTN h/o Ileus FFT K supplement IV and PO Aldactone resume Asacol monitor lytes per orders Herve Marshall MD February 14, 2019 12:54
[2019-02-14] MEDS: cefTRIAXone 1 GM in D5W 55 ML IVPB SCH (13:26)
--- NOTE | 2019-02-14 13:53 | NUR ---
NURSE NOTES: Patient left the floor for CT fo ABD.
--- NOTE | 2019-02-14 14:59 | Diagnostic Imaging Report ---
EXAM: CT Abdomen and Pelvis Without Intravenous Contrast CLINICAL HISTORY: Abdominal distention TECHNIQUE: Axial computed tomography images of the abdomen and pelvis without intravenous contrast. CTDI is 13.83 mGy and DLP is 809 mGy-cm. One or more of the following dose reduction techniques were used: automated exposure control, adjustment of the mA and/or kV according to patient size, use of iterative reconstruction technique. Coronal and sagittal reformatted images were created and reviewed. COMPARISON: CT abdomen and pelvis dated 12/11/18 FINDINGS: Lung bases: Unremarkable. No consolidation. No effusions. Heart: Coronary artery calcifications. ABDOMEN: Liver: Unremarkable. Gallbladder and bile ducts: Unremarkable. No calcified stones. No ductal dilation. Pancreas: Unremarkable. No ductal dilation. Spleen: Unremarkable. No splenomegaly. Adrenals: Unremarkable. No mass. Kidneys and ureters: 7 cm simple-appearing cyst in the left upper renal pole. The kidneys otherwise appear unremarkable. No hydronephrosis or hydroureter. Stomach and bowel: Diffuse distention of colonic loops with air-fluid levels. Portions of the sigmoid colon appear collapsed and cannot exclude obstruction. Maximum diameter of colonic loops of 11.3 cm in the right upper quadrant. No mucosal thickening. PELVIS: Appendix: Appendix is not definitively identified however no inflammatory changes are seen in the right lower quadrant. Bladder: Unremarkable. No stones. Reproductive: The prostate gland and seminal vesicles appear unremarkable. ABDOMEN and PELVIS: Intraperitoneal space: No intraperitoneal free air or free fluid. Bones/joints: Multilevel degenerative changes throughout the visualized spine with disc space loss and endplate osteophytes. No acute fracture. No dislocation. Soft tissues: Unremarkable. Vasculature: Atherosclerosis throughout the abdominal aorta and its proximal branches. No abdominal aortic aneurysm. Lymph nodes: Unremarkable. No enlarged lymph nodes. Tubes, lines and devices: Cardiac pacer leads in the right atrium and right ventricle. IMPRESSION: 1. Diffuse distention of colonic loops with air-fluid levels. Portions of the sigmoid colon appear collapsed and cannot exclude obstruction or volvulus. Maximum diameter of colonic loops of 11.3 cm in the right upper quadrant. This distention appears mildly improved compared to the prior CT exam from 12/11/18. No evidence of intraperitoneal free air or free fluid. Consider surgical evaluation or colonoscopy. 2. Coronary artery calcifications.
--- NOTE | 2019-02-14 15:15 | NUR ---
CASE MANAGEMENT: REVIEW 78Y/M BIBA FROM [facility] CC: GENERALIZED WEAKNESS SI: DEHYDRATION . ENCEPHALOPATHY T 98.4 HR 61 RR 16 BP 151/68 SAT 100% ROOM AIR NA 148 K 2.4 AST 42 BNP 1007 IS: NA IVF BOLUS X1 PATIENT ADMITTED TO MED/SURG UNIT 02/13/2019 DCP: PATIENT IS FROM [facility]
[2019-02-14 16:00] VITALS: BP 159/100
--- NOTE | 2019-02-14 16:43 | General Progress Note ---
Assessment/Plan Assessment/Plan: Assessment - Anorexia - Malnutrition - ? depressed - constipation, per CT Recommendations - Calorie count - Remeron trial - Push po - check stool OB - dulcolax supp once K replaced Subjective Allergies: Coded Allergies: No Known Allergies (Unverified , 04/22/17) Subjective Above noted feels OK no new complaints on calorie count d/w at length believes patient may be depressed she says patient had a colonoscopy a few weeks ago at [facility] understands the G tube option if patient fails to eat Objective Last 24 Hour Vital Signs Date Time Temp Pulse Resp B/P (MAP) Pulse Ox O2 Delivery O2 Flow Rate FiO2 02/14/19 16:00 97.9 68 19 159/100 (119) 100 02/14/19 14:02 117/70 02/14/19 12:00 98.1 64 16 117/70 (86) 100 02/14/19 09:00 Room Air 02/14/19 08:59 66 148/71 02/14/19 08:00 97.5 66 18 148/71 (96) 100 02/14/19 05:31 101/84 02/14/19 04:00 98.7 78 18 101/84 (90) 100 02/14/19 00:00 97.1 69 18 142/88 (106) 99 02/13/19 21:32 159/79 02/13/19 21:32 65 159/79 02/13/19 21:00 Room Air 02/13/19 20:00 99.1 65 20 159/79 (105) 100 02/13/19 17:33 Room Air 02/13/19 17:23 98.9 60 19 165/78 (107) 100 02/13/19 16:52 98.4 61 16 151/68 100 Room Air 02/13/19 16:41 98.4 65 20 149/85 100 Room Air Intake and Output 02/13/19 02/14/19 18:59 06:59 Intake Total 1000 ml 280 ml Balance 1000 ml 280 ml Intake Oral 280 ml IV Total 1000 ml # Voids 1 1 # Bowel Movements 2 1 Laboratory Tests 02/14/19 08:35: White Blood Count 7.5, Red Blood Count 4.24L, Hemoglobin 12.8L, Hematocrit 39.3L , Mean Corpuscular Volume 93, Mean Corpuscular Hemoglobin 30.2, Mean Corpuscular Hemoglobin Concent 32.6, Red Cell Distribution Width 13.6, Platelet Count 223, Mean Platelet Volume 6.4L, Neutrophils (%) (Auto) 76.0H, Lymphocytes (%) (Auto) 17.4L, Monocytes (%) (Auto) 5.1, Eosinophils (%) (Auto) 0.7, Basophils (%) (Auto) 0.8, Sodium Level 149H, Potassium Level 2.4*L, Chloride Level 114H, Carbon Dioxide Level 29, Anion Gap 5, Blood Urea Nitrogen 17, Creatinine 0.9, Estimat Glomerular Filtration Rate , Glucose Level 102, Calcium Level 8.4L, Total Bilirubin 0.3, Aspartate Amino Transf (AST/SGOT) 23, Alanine Aminotransferase (ALT/SGPT) 46, Alkaline Phosphatase 83, Total Protein 6.2L, Albumin 2.6L, Globulin 3.6, Albumin/Globulin Ratio 0.7L Height (Feet): 5 Height (Inches): 9.00 Weight (Pounds): 180 Objective Thin AA male NCAT supple CTA RRR Abd soft NT no edema Naresh Sher MD February 14, 2019 16:43
[2019-02-14] MEDS ORDERED: Sorbitol Solution UD 30ml ORAL SCH (16:45)
--- NOTE | 2019-02-14 17:24 | Consultation ---
History of Present Illness General Chief Complaint: Generalized Weakness Present Illness Allergies: Coded Allergies: No Known Allergies (Unverified , 04/22/17) Medication History Scheduled Hydralazine Hcl* (Hydralazine Hcl*), 75 MG ORAL EVERY 8 HOURS, (Reported) Latanoprost* (Xalatan*), 1 DROP BOTH EYES BEDTIME, (Reported) Mesalamine (Lialda), 1,600 MG ORAL THREE TIMES A DAY, (Reported) Potassium Chloride (Potassium Chloride), 40 MEQ PO TID, (Reported) Spironolactone* (Aldactone*), 50 MG ORAL EVERY 12 HOURS, (Reported) Timolol (Betimol), 1 DROP BOTH EYES BID, (Reported) Scheduled PRN Acetaminophen* (Acetaminophen 325MG Tablet*), 650 MG ORAL Q6H PRN for Fever/ Headache/Mild Pain, (Reported) Miscellaneous Medications Insulin Aspart (Novolog), SQ, (Reported) Discontinued Medications Amlodipine Besylate* (Amlodipine Besylate*), 5 MG ORAL EVERY 12 HOURS, (Reported ) Discontinued Reason: Therapy completed Ascorbic Acid* (Vitamin C*), 500 MG ORAL TWICE A DAY, (Reported) Discontinued Reason: Therapy completed Aspirin* (Aspir 81*), 81 MG ORAL DAILY, (Reported) Discontinued Reason: Therapy completed Atorvastatin Calcium* (Lipitor*), 10 MG ORAL BEDTIME, (Reported) Discontinued Reason: Therapy completed Clonidine Hcl* (Catapres*), 0.1 MG ORAL EVERY 4 HOURS PRN for SBP > 160, ( Reported) Discontinued Reason: Therapy completed Finasteride* (Proscar*), 5 MG ORAL DAILY, (Reported) Discontinued Reason: Therapy completed Insulin Detemir (Levemir), 16 UNIT SUBQ TID, (Reported) Discontinued Reason: Therapy completed Lactobacillus Rhamnosus Gg* (Culturelle*), 1 CAP ORAL BID, (Reported) Discontinued Reason: Therapy completed Levofloxacin* (Levaquin*), 250 MG ORAL DAILY, (Reported) Discontinued Reason: Therapy completed Levothyroxine Sodium* (Levothyroxine Sodium*), 25 MCG ORAL DAILY, (Reported) Discontinued Reason: Therapy completed Memantine Hcl* (Namenda*), 10 MG ORAL DAILY, (Reported) Discontinued Reason: Therapy completed Mirtazapine* (Remeron*), 15 MG ORAL BEDTIME, (Reported) Discontinued Reason: Therapy completed Multivitamin With Minerals (Multivitamins With Minerals*), 1 TAB ORAL DAILY, ( Reported) Discontinued Reason: Therapy completed Sennosides (Senna), 8.6 MG PO HS, (Reported) Discontinued Reason: Therapy completed Simethicone* (Simethicone*), 80 MG ORAL BID PRN for GAS PAIN, (Reported) Discontinued Reason: Therapy completed Tamsulosin Hcl (Tamsulosin Hcl*), 0.4 MG ORAL BID, (Reported) Discontinued Reason: Therapy completed Patient History Healthcare decision maker Resuscitation status Advanced Directive on File Physical Exam Last 24 Hour Vital Signs Date Time Temp Pulse Resp B/P (MAP) Pulse Ox O2 Delivery O2 Flow Rate FiO2 02/14/19 16:00 97.9 68 19 159/100 (119) 100 02/14/19 14:02 117/70 02/14/19 12:00 98.1 64 16 117/70 (86) 100 02/14/19 09:00 Room Air 02/14/19 08:59 66 148/71 02/14/19 08:00 97.5 66 18 148/71 (96) 100 02/14/19 05:31 101/84 02/14/19 04:00 98.7 78 18 101/84 (90) 100 02/14/19 00:00 97.1 69 18 142/88 (106) 99 02/13/19 21:32 159/79 02/13/19 21:32 65 159/79 02/13/19 21:00 Room Air 02/13/19 20:00 99.1 65 20 159/79 (105) 100 02/13/19 17:33 Room Air 02/13/19 17:23 98.9 60 19 165/78 (107) 100 Intake and Output 02/13/19 02/14/19 18:59 06:59 Intake Total 1000 ml 280 ml Balance 1000 ml 280 ml Intake Oral 280 ml IV Total 1000 ml # Voids 1 1 # Bowel Movements 2 1 Laboratory Tests Test 02/14/19 08:35 White Blood Count 7.5 K/UL (4.8-10.8) Red Blood Count 4.24 M/UL (4.70-6.10) L Hemoglobin 12.8 G/DL (14.2-18.0) L Hematocrit 39.3 % (42.0-52.0) L Mean Corpuscular Volume 93 FL (80-99) Mean Corpuscular Hemoglobin 30.2 PG (27.0-31.0) Mean Corpuscular Hemoglobin Concent 32.6 G/DL (32.0-36.0) Red Cell Distribution Width 13.6 % (11.6-14.8) Platelet Count 223 K/UL (150-450) Mean Platelet Volume 6.4 FL (6.5-10.1) L Neutrophils (%) (Auto) 76.0 % (45.0-75.0) H Lymphocytes (%) (Auto) 17.4 % (20.0-45.0) L Monocytes (%) (Auto) 5.1 % (1.0-10.0) Eosinophils (%) (Auto) 0.7 % (0.0-3.0) Basophils (%) (Auto) 0.8 % (0.0-2.0) Sodium Level 149 MMOL/L (136-145) H Potassium Level 2.4 MMOL/L (3.5-5.1) *L Chloride Level 114 MMOL/L (98-107) H Carbon Dioxide Level 29 MMOL/L (21-32) Anion Gap 5 mmol/L (5-15) Blood Urea Nitrogen 17 mg/dL (7-18) Creatinine 0.9 MG/DL (0.55-1.30) Estimat Glomerular Filtration Rate mL/min (>60) Glucose Level 102 MG/DL (74-106) Calcium Level 8.4 MG/DL (8.5-10.1) L Total Bilirubin 0.3 MG/DL (0.2-1.0) Aspartate Amino Transf (AST/SGOT) 23 U/L (15-37) Alanine Aminotransferase (ALT/SGPT) 46 U/L (12-78) Alkaline Phosphatase 83 U/L (46-116) Total Protein 6.2 G/DL (6.4-8.2) L Albumin 2.6 G/DL (3.4-5.0) L Globulin 3.6 g/dL Albumin/Globulin Ratio 0.7 (1.0-2.7) L Height (Feet): 5 Height (Inches): 9.00 Weight (Pounds): 180 Medications Current Medications Medications (Trade) Dose Ordered Sig/Kevin Route PRN Reason Start Time Stop Time Status Last Admin Dose Admin Acetaminophen (Tylenol) 650 mg Q6H PRN ORAL Fever/PARK/Mild Pain (1-3) 02/13/19 19:00 03/15/19 18:59 Amlodipine Besylate (Norvasc) 5 mg EVERY 12 HOURS ORAL 02/14/19 21:00 03/15/19 20:59 Aspirin (Ecotrin) 81 mg DAILY ORAL 02/14/19 09:00 03/16/19 08:59 02/14/19 08:58 Atorvastatin Calcium (Lipitor) 10 mg BEDTIME ORAL 02/13/19 21:00 03/15/19 20:59 02/13/19 21:31 Barium Sulfate (Readi-Cat 2) 450 ml NOW PRN ORAL Radiology Procedure 02/13/19 23:15 02/15/19 23:05 Ceftriaxone Sodium 1 gm/ Dextrose 55 ml @ 110 mls/hr Q24H IVPB 02/14/19 12:00 02/21/19 11:59 02/14/19 13:26 Clonidine HCl (Catapres Tab) 0.1 mg Q4H PRN ORAL SBP > 160mmHg 02/13/19 19:00 03/15/19 18:59 Dextrose (Dextrose 50%) 25 ml Q30M PRN IV Hypoglycemia 02/13/19 19:00 03/15/19 18:59 Dextrose (Dextrose 50%) 50 ml Q30M PRN IV Hypoglycemia 02/13/19 19:00 03/15/19 18:59 Hydralazine HCl (Apresoline) 75 mg EVERY 8 HOURS ORAL 02/14/19 14:00 03/15/19 21:59 02/14/19 14:02 Insulin Aspart (NovoLOG) BEFORE MEALS AND HS SUBQ 02/13/19 21:00 03/15/19 20:59 02/14/19 12:08 Lactobacillus Acidophilus (Culturelle) 1 tab BID ORAL 02/14/19 09:00 03/16/19 08:59 02/14/19 08:58 Latanoprost (Xalatan) 1 drop BEDTIME BOTH EYES 02/13/19 21:00 03/15/19 20:59 02/13/19 21:32 Mesalamine (Asacol) 1,600 mg TID ORAL 02/14/19 18:00 03/16/19 17:59 Mirtazapine (Remeron) 7.5 mg BEDTIME ORAL 02/13/19 23:00 03/15/19 22:59 02/13/19 23:04 Multivitamins Therapeutic (Therapeutic Multivitamin) 1 ea DAILY ORAL 02/14/19 09:00 03/16/19 08:59 02/14/19 08:58 Pantoprazole (Protonix) 40 mg EVERY 12 HOURS ORAL 02/14/19 21:00 03/16/19 20:59 Potassium Chloride (K-Dur) 20 meq BID ORAL 02/14/19 18:00 03/16/19 08:59 Sennosides (Senokot) 8.6 mg HSPRN PRN ORAL Constipation 02/13/19 21:00 03/15/19 20:59 Simethicone (Mylicon) 80 mg BIDPRN PRN ORAL GAS PAIN 02/13/19 19:00 03/15/19 18:59 Spironolactone (Aldactone) 50 mg EVERY 12 HOURS ORAL 02/13/19 22:00 03/15/19 21:59 02/14/19 08:58 Assessment/Plan Assessment/Plan: Hematology Consultation REQ MD: Jose Francisco Chand DOS: 02/14/19 RFC: Anemia evaluation HPI 78-year-old male presents ED for evaluation. Brought in by EMS from intermediate facility. Presenting with weakness and reduced appetite and failure to thrive times one week. Patient nonverbal at baseline. Unable to provide any additional history at this time. No signs of distress. No reported fevers or chills. No other aggravating relieving factors. 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 Hx Transient Ischemic Attacks: Yes Hx Weakness: Yes Review of Systems: limited PE Vital Signs Date Time Temp Pulse Resp B/P (MAP) Pulse Ox O2 Delivery O2 Flow Rate FiO2 02/14/19 14:00 98.4 62 16 142/76 (98) 100 Room Air Vitals: reviewed, normal Gen: lethargic, other - nonverbal Head: normocephalic, atraumatic Eyes: bilateral eye normal inspection, bilateral eye PERRL ENT: hearing grossly normal, normal pharynx Neck: full range of motion, supple/symm/no masses Respiratory: chest non-tender, lungs clear, normal breath sounds, speaking full sentences Cv: regular rate, rhythm, no edema Gi: normal bowel sounds Rectal: deferred Genitourinary: normal inspection Musculoskeletal: back normal Skin: normal color, no rash, warm/dry, well hydrated Lymphatic: no adenopathy Active Scripts Medications Dose Route/Sig Max Daily Dose Days Date Category Dose Instructions Xalatan* (Latanoprost) 2.5 Ml Drops 1 Drop BOTH EYES BEDTIME 02/13/19 Reported Novolog (Insulin Aspart) 100 Unit/1 Ml Cartridge SQ 02/13/19 Reported PER SSI: BS 70-150 MG/DL = 0 UNITS, 151-199 = 1 UNIT, 200- 249 = 2 UNITS, 250-299 = 3 UNITS, 300-349 = 4 UNITS, 350-400 = 5 UNITS, ABOVE 400 = CALL Betimol (Timolol) 5 Ml Drops 1 Drop BOTH EYES BID 02/13/19 Reported Aldactone* (Spironolactone) 50 Mg Tablet 50 Mg ORAL EVERY 12 HOURS 12/28/18 Reported Lialda (Mesalamine) 1.2 Gm Tablet. 1,600 Mg ORAL THREE TIMES A DAY 12/28/18 Reported Hydralazine Hcl* (Hydralazine HCl) 50 Mg Tablet 75 Mg ORAL EVERY 8 HOURS 12/28/18 Reported HOLD IF SBP < 120 Potassium Chloride 20 Meq Tablet.er 40 Meq PO TID 04/20/18 Reported Acetaminophen 325MG Tablet* (Acetaminophen) 325 Mg Tablet 650 Mg ORAL Q6H PRN 04/25/17 Reported Laboratory Tests Test 02/14/19 08:35 White Blood Count 7.5 K/UL (4.8-10.8) Red Blood Count 4.24 M/UL (4.70-6.10) L Hemoglobin 12.8 G/DL (14.2-18.0) L Hematocrit 39.3 % (42.0-52.0) L Mean Corpuscular Volume 93 FL (80-99) Mean Corpuscular Hemoglobin 30.2 PG (27.0-31.0) Mean Corpuscular Hemoglobin Concent 32.6 G/DL (32.0-36.0) Red Cell Distribution Width 13.6 % (11.6-14.8) Platelet Count 223 K/UL (150-450) Mean Platelet Volume 6.4 FL (6.5-10.1) L Neutrophils (%) (Auto) 76.0 % (45.0-75.0) H Lymphocytes (%) (Auto) 17.4 % (20.0-45.0) L Monocytes (%) (Auto) 5.1 % (1.0-10.0) Eosinophils (%) (Auto) 0.7 % (0.0-3.0) Basophils (%) (Auto) 0.8 % (0.0-2.0) Sodium Level 149 MMOL/L (136-145) H Potassium Level 2.4 MMOL/L (3.5-5.1) *L Chloride Level 114 MMOL/L (98-107) H Carbon Dioxide Level 29 MMOL/L (21-32) Anion Gap 5 mmol/L (5-15) Blood Urea Nitrogen 17 mg/dL (7-18) Creatinine 0.9 MG/DL (0.55-1.30) Estimat Glomerular Filtration Rate mL/min (>60) Glucose Level 102 MG/DL (74-106) Calcium Level 8.4 MG/DL (8.5-10.1) L Total Bilirubin 0.3 MG/DL (0.2-1.0) Aspartate Amino Transf (AST/SGOT) 23 U/L (15-37) Alanine Aminotransferase (ALT/SGPT) 46 U/L (12-78) Alkaline Phosphatase 83 U/L (46-116) Total Protein 6.2 G/DL (6.4-8.2) L Albumin 2.6 G/DL (3.4-5.0) L Globulin 3.6 g/dL Albumin/Globulin Ratio 0.7 (1.0-2.7) L Assessment and Recs: # Failure to thrive (FTT) - decreased bmi and low protein, protein decreased, decreased po intake --> have ordered for cea level --> will also obtain q3d caloric counts --> may consider mirtazapine as appetite stimulant --> GI consult has been ordered, appreciate recs # Anemia of chronic disease due to underlying chronic medical issues, multifactorial --> Anemia workup has been ordered, rule out gi bleed --> No evidence of hemolysis is noted, peripheral smear has been reviewed. --> Hgb goal >7. Transfuse prn. --> Epogen or iron at this time is not particularly indicated --> Medications have been reviewed # Episode of generalized weakness --> r/o malignancy, cea ordered --> ivf have been started # Encephalopathy # Dehydration # Hypokalemia The timing of this note does not necessarily reflect the time of the patient was seen. Greatly appreciate consultation! Sterling Singletary MD February 14, 2019 17:24
[2019-02-14] MEDS: Mesalamine 400mg cap ORAL SCH (18:00)
--- NOTE | 2019-02-14 18:30 | Consultation ---
DATE OF CONSULTATION: 02/14/2019 INFECTIOUS DISEASES CONSULTATION PRIMARY ATTENDING PHYSICIAN: Jose Francisco Chand M.D. REASON FOR CONSULTATION: Pyuria and urinary tract infection. HISTORY OF PRESENT ILLNESS: An 78-year-old male, admitted yesterday from a nursing facility because of decreased appetite and failure to thrive. The patient has decreased appetite for one week. The patient had history of previous admission in [facility] in November of 2018 with sigmoid colitis and has some pyuria in UA. PAST MEDICAL HISTORY: Significant for diabetes mellitus, hypertension, status post CVA, anemia, CHF, status post pacemaker. ALLERGIES: No known drug allergies. MEDICATIONS: Getting potassium chloride, sodium chloride, aspirin, lactobacillus, multivitamin, mirtazapine, hydralazine, spironolactone, amlodipine, atorvastatin, Xalatan eye drop, insulin, Senokot, clonidine, and simethicone. SOCIAL HISTORY: penitentiary resident. No history of recent smoking, drug abuse, or alcohol abuse. REVIEW OF SYSTEMS: The patient denies any fever, chills, back pain, nausea, vomiting, or dysuria. PHYSICAL EXAMINATION: VITAL SIGNS: Temperature 97.6 degrees, pulse 66, and blood pressure 148/71. GENERAL APPEARANCE: No acute distress. HEAD AND NECK: Poor dentition. Lennox conjunctiva. HEART: Normal rate. LUNGS: Clear. ABDOMEN: Soft and nontender. EXTREMITIES: No edema. NEUROLOGIC: Awake, alert, and responsive. LABORATORY AND DIAGNOSTIC DATA: WBC 12.5, hemoglobin 12.8, hematocrit 39.3, and platelets is 223,000. Sodium 149, potassium 2.4, chloride 113, bicarbonate 29, BUN of 17, creatinine of 0.9, and glucose 102. UA showed wbc of 5 to 10, leukocyte esterase 3+, nitrite negative, and protein 2+. IMPRESSION: Pyuria, may have underlying urinary tract infection. The patient has decreased appetite and failure to thrive, has diabetes mellitus, hypertension, s/p pacemaker, and dementia. RECOMMENDATIONS: 1. Urine culture. 2. Start on Rocephin. 3. We will follow up cultures and narrow antibiotics. At the end of my exam, I thank Dr. Chand, for involving me in the care of this patient. Micky Flex Avilez DR: Lamine JOB#: [id number] CC: MARKUS
--- NOTE | 2019-02-14 19:42 | NUR ---
HAND-OFF: Report given to ANA PAULA Grover.
[2019-02-14 20:00] VITALS: BP 141/61
--- NOTE | 2019-02-14 20:00 | NUR ---
NURSE NOTES: PATIENT IN BED. ON RA, NO SOB, NO ACUTE DISTRESS, DENIES PAIN. BED IN LOWEST POSITION, LOCKED, ALARMS ON. CALL LIGHT IN REACH. R WRIST IV INTACT, PATENT.
[2019-02-14] MEDS: Latanoprost 0.005% Opth 2.5ml Soln BOTH EYES SCH (21:09)
[2019-02-15] VITALS: BP 128/58
[2019-02-15 04:00] VITALS: BP 138/69
[2019-02-15] MEDS: NovoLOG Insulin Flexpen SUBQ SCH ×4 (05:27→21:00)
[2019-02-15] MEDS: HydrALAZINE 25mg tab ORAL SCH ×3 (05:28→20:59)
[2019-02-15 06:46] LABS: BASOPHILS % (AUTO) 0.7 % (0.0-2.0); EOSINOPHILS % (AUTO) 0.8 % (0.0-3.0); HEMATOCRIT 37.2 % (42.0-52.0); HEMOGLOBIN 12.4 G/DL (14.2-18.0); LYMPHOCYTES % (AUTO) 18.7 % (20.0-45.0); MEAN CORPUSCULAR VOLUME 93 FL (80-99); MONOCYTES % (AUTO) 6.8 % (1.0-10.0); NEUTROPHILS % (AUTO) 73.1 % (45.0-75.0); PLATELET COUNT 199 K/UL (150-450); RED BLOOD COUNT 3.99 M/UL (4.70-6.10); WHITE BLOOD COUNT 7.1 K/UL (4.8-10.8)
[2019-02-15 07:09] LABS: ALANINE AMINOTRANSFERASE 37 U/L (12-78); ALBUMIN 2.3 G/DL (3.4-5.0); ALBUMIN/GLOBULIN RATIO 0.7 (1.0-2.7); ALKALINE PHOSPHATASE 78 U/L (46-116); ANION GAP 9 mmol/L (5-15); ASPARTATE AMINO TRANSFERASE 23 U/L (15-37); BILIRUBIN,TOTAL 0.3 MG/DL (0.2-1.0); BLOOD UREA NITROGEN 13 mg/dL (7-18); CARBON DIOXIDE 26 MMOL/L (21-32); CHLORIDE 112 MMOL/L (98-107); CHOLESTEROL 139 MG/DL (< 200); CREATININE 0.9 MG/DL (0.55-1.30); GAMMA GLUTAMYL TRANSPEPTIDASE 5 U/L (5-85); HDL CHOLESTEROL 36 MG/DL (40-60); PHOSPHORUS 2.1 MG/DL (2.5-4.9); POTASSIUM 3.4 MMOL/L (3.5-5.1); SODIUM 147 MMOL/L (136-145); TRIGLYCERIDES 57 MG/DL (30-150)
--- NOTE | 2019-02-15 07:19 | NUR ---
NURSE NOTES: Received report from ANA PAULA Julian. Pt in bed, asleep, respirations regular and unlabored, no apparent distress noted, laying comfortably, bed in lowest position, call light within reach, bed alarm on.
[2019-02-15 07:57] VITALS: BP 134/66
[2019-02-15] MEDS: Mesalamine 400mg cap ORAL SCH ×3 (08:14→17:13)
[2019-02-15] MEDS: Aspirin EC 81mg tab ORAL SCH (08:14)
[2019-02-15] MEDS: Multivitamin w/Minerals tab ORAL SCH (08:14)
[2019-02-15] MEDS: Lactobacillus-GG tablet ORAL SCH ×2 (08:14→17:13)
[2019-02-15] MEDS: Spironolactone 50mg tab ORAL SCH ×2 (08:15→20:59)
[2019-02-15] MEDS ORDERED: Potassium Phosphate 20 MM in NS 275 ML IV ONE (09:45)
--- NOTE | 2019-02-15 10:30 | History and Physical Report ---
DATE OF ADMISSION: 02/13/2019 HISTORY OF PRESENT ILLNESS: The patient has advanced dementia, cannot get a reliable history from the patient. The patient is admitted for failure to thrive, not eating at the SNF. The patient hypokalemia, severely malnourished as well as urinary tract infection . Again, cannot obtain any reliable history from the patient. The patient also is admitted for failure to thrive. PAST MEDICAL HISTORY: NIDDM, hypertension, advanced dementia, CHF, CVA, , history of hypertension, COPD, diabetes, history of gastroparesis, history of BPH, deficit, history of weakness, glaucoma. PAST SURGICAL HISTORY: Denies surgery. MEDICATIONS: Insulin, hydralazine, mesalamine, potassium, spironolactone, and timolol. SOCIAL HISTORY: Denies history of smoking, alcohol, or illicit drugs. Comes from a alf. He is a poor historian. PHYSICAL EXAMINATION: VITAL SIGNS: Temperature 98.1, pulse 64, and blood pressure 117/70. GENERAL: . CHEST: Clear to auscultation. CARDIOVASCULAR: Regular rate and rhythm. ABDOMEN: Distended. Soft. No organomegaly. EXTREMITY: 1+ edema. Reflexes in both sides. NEUROLOGIC: Poor historian. PELVIC: baseline. LABORATORY DATA: WBC of 7.5, hemoglobin 12.9, and platelets 257. Sodium 148, potassium 4.4, BUN of 17, creatinine , glucose of 121, repeat potassium 3.7. ASSESSMENT/PLAN: Persistent refractory hypokalemia, urinary tract infection, malnutrition, failure to thrive, not eating. I have asked Dr. Sterling Singletary to see the patient for failure to thrive workup as well as Dr. Marshall and Dr. Micky Avilez consult. Potassium replacement per Dr. Marshall. Also consulted Dr. Ortiz for possible feeding tube. We will defer to him regarding nutrition as the patient is severely malnourished. Jose Francisco Chand M.D. DR: SUMAN JOB#: [id number] CC:
[2019-02-15] MEDS: cefTRIAXone 1 GM in D5W 55 ML IVPB SCH (11:58)
[2019-02-15 12:00] VITALS: BP 127/64
--- NOTE | 2019-02-15 12:08 | General Progress Note ---
Assessment/Plan Assessment/Plan: Assessment - Anorexia - Malnutrition - ? depressed - constipation, per CT Recommendations - Calorie count - Remeron trial - Push po - check stool OB Subjective Allergies: Coded Allergies: No Known Allergies (Unverified , 04/22/17) Subjective Above noted no events overnight (+) BM Objective Last 24 Hour Vital Signs Date Time Temp Pulse Resp B/P (MAP) Pulse Ox O2 Delivery O2 Flow Rate FiO2 02/15/19 08:48 Room Air 02/15/19 08:14 66 134/66 02/15/19 07:57 97.9 66 14 134/66 (88) 100 02/15/19 05:28 138/69 02/15/19 04:00 98.6 66 18 138/69 (92) 100 02/15/19 00:00 97.3 63 18 128/58 (81) 100 02/14/19 21:09 70 141/61 02/14/19 21:08 141/61 02/14/19 21:00 Room Air 02/14/19 20:00 98.5 70 18 141/61 (87) 100 02/14/19 16:00 97.9 68 19 159/100 (119) 100 02/14/19 14:02 117/70 Intake and Output 02/14/19 02/15/19 18:59 06:59 Intake Total 530 ml Output Total 150 ml Balance 530 ml -150 ml Intake Oral 120 ml IV Total 410 ml Output Urine Total 150 ml # Voids 2 # Bowel Movements 1 Laboratory Tests 02/15/19 05:40: White Blood Count 7.1, Red Blood Count 3.99L, Hemoglobin 12.4L, Hematocrit 37.2L , Mean Corpuscular Volume 93, Mean Corpuscular Hemoglobin 31.1H, Mean Corpuscular Hemoglobin Concent 33.4, Red Cell Distribution Width 14.0, Platelet Count 199, Mean Platelet Volume 6.2L, Neutrophils (%) (Auto) 73.1, Lymphocytes ( %) (Auto) 18.7L, Monocytes (%) (Auto) 6.8, Eosinophils (%) (Auto) 0.8, Basophils (%) (Auto) 0.7, Sodium Level 147H, Potassium Level 3.4L, Chloride Level 112H, Carbon Dioxide Level 26, Anion Gap 9, Blood Urea Nitrogen 13, Creatinine 0.9, Estimat Glomerular Filtration Rate , Glucose Level 76, Hemoglobin A1c 5.9, Uric Acid 5.5, Calcium Level 8.0L, Phosphorus Level 2.1L, Magnesium Level 1.7L, Total Bilirubin 0.3, Gamma Glutamyl Transpeptidase 5, Aspartate Amino Transf (AST/SGOT) 23, Alanine Aminotransferase (ALT/SGPT) 37, Alkaline Phosphatase 78, C-Reactive Protein, Quantitative < 0.4, Pro-B-Type Natriuretic Peptide 1245H, Total Protein 5.8L, Albumin 2.3L, Globulin 3.5, Albumin/Globulin Ratio 0.7L, Triglycerides Level 57, Cholesterol Level 139, LDL Cholesterol 92, HDL Cholesterol 36L, Cholesterol/HDL Ratio 3.9, Vitamin B12 Level 483, Folate 12.6 Height (Feet): 5 Height (Inches): 9.00 Weight (Pounds): 180 Objective Thin AA male NCAT supple CTA RRR Abd soft NT no edema Naresh Sher MD February 15, 2019 12:08
--- NOTE | 2019-02-15 13:06 | Hematology/Onc Progress Note ---
Assessment/Plan Assessment/Plan Assessment and Recs: # Failure to thrive (FTT) - decreased bmi and low protein, protein decreased, decreased po intake --> have ordered for cea level --> will also obtain q3d caloric counts --> may consider mirtazapine as appetite stimulant --> GI consult has been ordered, appreciate recs --> may need a gtube # Anemia of chronic disease due to underlying chronic medical issues, multifactorial --> Anemia workup has been ordered, rule out gi bleed --> No evidence of hemolysis is noted, peripheral smear has been reviewed. --> Hgb goal >7. Transfuse prn. --> Epogen or iron at this time is not particularly indicated --> Medications have been reviewed # Episode of generalized weakness --> r/o malignancy, cea ordered --> ivf have been started # Encephalopathy # Dehydration # Hypokalemia The timing of this note does not necessarily reflect the time of the patient was seen. Greatly appreciate consultation! Subjective Constitutional: Denies: no symptoms, chills, fever, malaise, weakness, other HEENT: Denies: no symptoms, eye pain, blurred vision, tearing, double vision, ear pain, ear discharge, nose pain, nose congestion, throat pain, throat swelling, mouth pain, mouth swelling, other Cardiovascular: Denies: no symptoms, chest pain, edema, irregular heart rate, lightheadedness, palpitations, syncope, other Respiratory: Denies: no symptoms, cough, shortness of breath, SOB with excertion, SOB at rest, sputum, wheezing, other Gastrointestinal/Abdominal: Denies: no symptoms, abdomen distended, abdominal pain, black stools, tarry stools, blood in stool, constipated, diarrhea, difficulty swallowing, nausea, poor appetite, poor fluid intake, rectal bleeding , vomiting, other Genitourinary: Denies: no symptoms, burning, discharge, frequency, flank pain, hematuria, incontinence, pain, urgency, other Neurologic/Psychiatric: Denies: no symptoms, anxiety, depressed, emotional problems, headache, numbness, paresthesia, pre-existing deficit, seizure, tingling, tremors, weakness, other Allergies: Coded Allergies: No Known Allergies (Unverified , 04/22/17) Subjective 02/15: discussed care with , may need gtube, seen by gi Objective Objective Current Medications Medications (Trade) Dose Ordered Sig/Kevin Route PRN Reason Start Time Stop Time Status Last Admin Dose Admin Acetaminophen (Tylenol) 650 mg Q6H PRN ORAL Fever/PARK/Mild Pain (1-3) 02/13/19 19:00 03/15/19 18:59 Amlodipine Besylate (Norvasc) 5 mg EVERY 12 HOURS ORAL 02/14/19 21:00 03/15/19 20:59 02/15/19 08:14 Aspirin (Ecotrin) 81 mg DAILY ORAL 02/14/19 09:00 03/16/19 08:59 02/15/19 08:14 Atorvastatin Calcium (Lipitor) 10 mg BEDTIME ORAL 02/13/19 21:00 03/15/19 20:59 02/14/19 21:07 Barium Sulfate (Readi-Cat 2) 450 ml NOW PRN ORAL Radiology Procedure 02/13/19 23:15 02/15/19 23:05 Ceftriaxone Sodium 1 gm/ Dextrose 55 ml @ 110 mls/hr Q24H IVPB 02/14/19 12:00 02/21/19 11:59 02/15/19 11:58 Clonidine HCl (Catapres Tab) 0.1 mg Q4H PRN ORAL SBP > 160mmHg 02/13/19 19:00 03/15/19 18:59 Dextrose (Dextrose 50%) 25 ml Q30M PRN IV Hypoglycemia 02/13/19 19:00 03/15/19 18:59 Dextrose (Dextrose 50%) 50 ml Q30M PRN IV Hypoglycemia 02/13/19 19:00 03/15/19 18:59 Hydralazine HCl (Apresoline) 75 mg EVERY 8 HOURS ORAL 02/14/19 14:00 03/15/19 21:59 02/15/19 05:28 Insulin Aspart (NovoLOG) BEFORE MEALS AND HS SUBQ 02/13/19 21:00 03/15/19 20:59 02/15/19 05:27 Lactobacillus Acidophilus (Culturelle) 1 tab BID ORAL 02/14/19 09:00 03/16/19 08:59 02/15/19 08:14 Latanoprost (Xalatan) 1 drop BEDTIME BOTH EYES 02/13/19 21:00 03/15/19 20:59 02/14/19 21:09 Mesalamine (Asacol) 1,600 mg TID ORAL 02/14/19 18:00 03/16/19 17:59 02/15/19 12:03 Mirtazapine (Remeron) 7.5 mg BEDTIME ORAL 02/13/19 23:00 03/15/19 22:59 02/14/19 21:08 Multivitamins Therapeutic (Therapeutic Multivitamin) 1 ea DAILY ORAL 02/14/19 09:00 03/16/19 08:59 02/15/19 08:14 Pantoprazole (Protonix) 40 mg EVERY 12 HOURS ORAL 02/14/19 21:00 03/16/19 20:59 02/15/19 08:14 Potassium Phosphate 20 mm/ Sodium Chloride 281.6667 ml @ 46.944 m... ONCE ONCE IV 02/15/19 09:45 02/15/19 15:44 02/15/19 09:43 Potassium Chloride (K-Dur) 20 meq BID ORAL 02/14/19 18:00 03/16/19 08:59 02/15/19 08:15 Sennosides (Senokot) 8.6 mg HSPRN PRN ORAL Constipation 02/13/19 21:00 03/15/19 20:59 Simethicone (Mylicon) 80 mg BIDPRN PRN ORAL GAS PAIN 02/13/19 19:00 03/15/19 18:59 Spironolactone (Aldactone) 50 mg EVERY 12 HOURS ORAL 02/13/19 22:00 03/15/19 21:59 02/15/19 08:15 Last 24 Hour Vital Signs Date Time Temp Pulse Resp B/P (MAP) Pulse Ox O2 Delivery O2 Flow Rate FiO2 02/15/19 12:00 97.4 71 18 127/64 (85) 99 02/15/19 08:48 Room Air 02/15/19 08:14 66 134/66 02/15/19 07:57 97.9 66 14 134/66 (88) 100 02/15/19 05:28 138/69 02/15/19 04:00 98.6 66 18 138/69 (92) 100 02/15/19 00:00 97.3 63 18 128/58 (81) 100 02/14/19 21:09 70 141/61 02/14/19 21:08 141/61 02/14/19 21:00 Room Air 02/14/19 20:00 98.5 70 18 141/61 (87) 100 02/14/19 16:00 97.9 68 19 159/100 (119) 100 02/14/19 14:02 117/70 02/14/19 12:00 98.1 64 16 117/70 (86) 100 02/14/19 09:00 Room Air 02/14/19 08:59 66 148/71 02/14/19 08:00 97.5 66 18 148/71 (96) 100 02/14/19 05:31 101/84 02/14/19 04:00 98.7 78 18 101/84 (90) 100 02/14/19 00:00 97.1 69 18 142/88 (106) 99 02/13/19 21:32 159/79 02/13/19 21:32 65 159/79 02/13/19 21:00 Room Air 02/13/19 20:00 99.1 65 20 159/79 (105) 100 02/13/19 17:33 Room Air 02/13/19 17:23 98.9 60 19 165/78 (107) 100 02/13/19 16:52 98.4 61 16 151/68 100 Room Air 02/13/19 16:41 98.4 65 20 149/85 100 Room Air 02/13/19 15:27 98.4 61 16 151/68 100 Room Air 02/13/19 14:15 62 16 Room Air 02/13/19 14:00 98.4 62 16 142/76 (98) 100 Room Air Intake and Output 02/14/19 02/15/19 19:00 07:00 Intake Total 530 ml Output Total 150 ml Balance 530 ml -150 ml Intake Oral 120 ml IV Total 410 ml Output Urine Total 150 ml # Voids 2 # Bowel Movements 1 Labs Test 02/13/19 14:45 02/14/19 08:35 02/15/19 05:40 White Blood Count 7.5 K/UL (4.8-10.8) 7.5 K/UL (4.8-10.8) 7.1 K/UL (4.8-10.8) Red Blood Count 4.23 M/UL (4.70-6.10) 4.24 M/UL (4.70-6.10) 3.99 M/UL (4.70-6.10) Hemoglobin 12.9 G/DL (14.2-18.0) 12.8 G/DL (14.2-18.0) 12.4 G/DL (14.2-18.0) Hematocrit 39.3 % (42.0-52.0) 39.3 % (42.0-52.0) 37.2 % (42.0-52.0) Mean Corpuscular Volume 93 FL (80-99) 93 FL (80-99) 93 FL (80-99) Mean Corpuscular Hemoglobin 30.5 PG (27.0-31.0) 30.2 PG (27.0-31.0) 31.1 PG (27.0-31.0) Mean Corpuscular Hemoglobin Concent 32.8 G/DL (32.0-36.0) 32.6 G/DL (32.0-36.0) 33.4 G/DL (32.0-36.0) Red Cell Distribution Width 13.9 % (11.6-14.8) 13.6 % (11.6-14.8) 14.0 % (11.6-14.8) Platelet Count 257 K/UL (150-450) 223 K/UL (150-450) 199 K/UL (150-450) Mean Platelet Volume 6.7 FL (6.5-10.1) 6.4 FL (6.5-10.1) 6.2 FL (6.5-10.1) Neutrophils (%) (Auto) 77.1 % (45.0-75.0) 76.0 % (45.0-75.0) 73.1 % (45.0-75.0) Lymphocytes (%) (Auto) 16.9 % (20.0-45.0) 17.4 % (20.0-45.0) 18.7 % (20.0-45.0) Monocytes (%) (Auto) 5.0 % (1.0-10.0) 5.1 % (1.0-10.0) 6.8 % (1.0-10.0) Eosinophils (%) (Auto) 0.4 % (0.0-3.0) 0.7 % (0.0-3.0) 0.8 % (0.0-3.0) Basophils (%) (Auto) 0.7 % (0.0-2.0) 0.8 % (0.0-2.0) 0.7 % (0.0-2.0) Urine Color Yellow Urine Appearance Clear Urine pH 5 (4.5-8.0) Urine Specific [place] 1.020 (1.005-1.035) Urine Protein 2+ (NEGATIVE) Urine Glucose (UA) Negative (NEGATIVE) Urine Ketones Negative (NEGATIVE) Urine Blood Negative (NEGATIVE) Urine Nitrite Negative (NEGATIVE) Urine Bilirubin Negative (NEGATIVE) Urine Urobilinogen Normal MG/DL (0.0-1.0) Urine Leukocyte Esterase 3+ (NEGATIVE) Urine RBC 0-2 /HPF (0 - 0) Urine WBC 5-10 /HPF (0 - 0) Urine Squamous Epithelial Cells None /LPF (NONE/OCC) Urine Bacteria Few /HPF (NONE) Sodium Level 148 MMOL/L (136-145) 149 MMOL/L (136-145) 147 MMOL/L (136-145) Potassium Level 4.4 MMOL/L (3.5-5.1) 2.4 MMOL/L (3.5-5.1) 3.4 MMOL/L (3.5-5.1) Chloride Level 112 MMOL/L (98-107) 114 MMOL/L (98-107) 112 MMOL/L (98-107) Carbon Dioxide Level 30 MMOL/L (21-32) 29 MMOL/L (21-32) 26 MMOL/L (21-32) Anion Gap 6 mmol/L (5-15) 5 mmol/L (5-15) 9 mmol/L (5-15) Blood Urea Nitrogen 17 mg/dL (7-18) 17 mg/dL (7-18) 13 mg/dL (7-18) Creatinine 0.9 MG/DL (0.55-1.30) 0.9 MG/DL (0.55-1.30) 0.9 MG/DL (0.55-1.30) Estimat Glomerular Filtration Rate mL/min (>60) mL/min (>60) mL/min (>60) Glucose Level 121 MG/DL (74-106) 102 MG/DL (74-106) 76 MG/DL (74-106) Lactic Acid Level 1.90 mmol/L (0.4-2.0) Calcium Level 8.4 MG/DL (8.5-10.1) 8.4 MG/DL (8.5-10.1) 8.0 MG/DL (8.5-10.1) Total Bilirubin 0.5 MG/DL (0.2-1.0) 0.3 MG/DL (0.2-1.0) 0.3 MG/DL (0.2-1.0) Aspartate Amino Transf (AST/SGOT) 42 U/L (15-37) 23 U/L (15-37) 23 U/L (15-37) Alanine Aminotransferase (ALT/SGPT) 57 U/L (12-78) 46 U/L (12-78) 37 U/L (12-78) Alkaline Phosphatase 88 U/L (46-116) 83 U/L (46-116) 78 U/L (46-116) Pro-B-Type Natriuretic Peptide 1007 pg/mL (0-125) 1245 pg/mL (0-125) Total Protein 6.6 G/DL (6.4-8.2) 6.2 G/DL (6.4-8.2) 5.8 G/DL (6.4-8.2) Albumin 2.5 G/DL (3.4-5.0) 2.6 G/DL (3.4-5.0) 2.3 G/DL (3.4-5.0) Globulin 4.1 g/dL 3.6 g/dL 3.5 g/dL Albumin/Globulin Ratio 0.6 (1.0-2.7) 0.7 (1.0-2.7) 0.7 (1.0-2.7) Thyroid Stimulating Hormone (TSH) 1.919 uiU/mL (0.358-3.740) Hemoglobin A1c 5.9 % (4.3-6.0) Uric Acid 5.5 MG/DL (2.6-7.2) Phosphorus Level 2.1 MG/DL (2.5-4.9) Magnesium Level 1.7 MG/DL (1.8-2.4) Gamma Glutamyl Transpeptidase 5 U/L (5-85) C-Reactive Protein, Quantitative < 0.4 mg/dL (0.00-0.90) Triglycerides Level 57 MG/DL (30-150) Cholesterol Level 139 MG/DL (< 200) LDL Cholesterol 92 mg/dL (<100) HDL Cholesterol 36 MG/DL (40-60) Cholesterol/HDL Ratio 3.9 (3.3-4.4) Vitamin B12 Level 483 PG/ML (193-986) Folate 12.6 NG/ML (8.6-58.9) Height (Feet): 5 Height (Inches): 9.00 Weight (Pounds): 180 Objective Vitals: reviewed, normal Gen: lethargic, other - nonverbal Head: normocephalic, atraumatic Eyes: bilateral eye normal inspection, bilateral eye PERRL ENT: hearing grossly normal, normal pharynx Neck: full range of motion, supple/symm/no masses Respiratory: chest non-tender, lungs clear, normal breath sounds, speaking full sentences Cv: regular rate, rhythm, no edema Gi: normal bowel sounds Rectal: deferred Genitourinary: normal inspection Musculoskeletal: back normal Skin: normal color, no rash, warm/dry, well hydrated Lymphatic: no adenopathy Sterling Singletary MD February 15, 2019 13:06
--- NOTE | 2019-02-15 13:10 | Nephrology Progress Note ---
Assessment/Plan Problem List: (1) UTI (urinary tract infection) (2) Hypokalemia (3) HTN (hypertension) Assessment HypoKalemia UTI HTN h/o Ileus FFT Plan Mag IV- K supplement IV and PO Aldactone resume Asacol monitor lytes per orders Subjective ROS Limited/Unobtainable: No Objective Objective Last 24 Hour Vital Signs Date Time Temp Pulse Resp B/P (MAP) Pulse Ox O2 Delivery O2 Flow Rate FiO2 02/15/19 12:00 97.4 71 18 127/64 (85) 99 02/15/19 08:48 Room Air 02/15/19 08:14 66 134/66 02/15/19 07:57 97.9 66 14 134/66 (88) 100 02/15/19 05:28 138/69 02/15/19 04:00 98.6 66 18 138/69 (92) 100 02/15/19 00:00 97.3 63 18 128/58 (81) 100 02/14/19 21:09 70 141/61 02/14/19 21:08 141/61 02/14/19 21:00 Room Air 02/14/19 20:00 98.5 70 18 141/61 (87) 100 02/14/19 16:00 97.9 68 19 159/100 (119) 100 02/14/19 14:02 117/70 Intake and Output 02/14/19 02/15/19 19:00 07:00 Intake Total 530 ml Output Total 150 ml Balance 530 ml -150 ml Intake Oral 120 ml IV Total 410 ml Output Urine Total 150 ml # Voids 2 # Bowel Movements 1 Laboratory Tests 02/15/19 05:40: White Blood Count 7.1, Red Blood Count 3.99L, Hemoglobin 12.4L, Hematocrit 37.2L , Mean Corpuscular Volume 93, Mean Corpuscular Hemoglobin 31.1H, Mean Corpuscular Hemoglobin Concent 33.4, Red Cell Distribution Width 14.0, Platelet Count 199, Mean Platelet Volume 6.2L, Neutrophils (%) (Auto) 73.1, Lymphocytes ( %) (Auto) 18.7L, Monocytes (%) (Auto) 6.8, Eosinophils (%) (Auto) 0.8, Basophils (%) (Auto) 0.7, Sodium Level 147H, Potassium Level 3.4L, Chloride Level 112H, Carbon Dioxide Level 26, Anion Gap 9, Blood Urea Nitrogen 13, Creatinine 0.9, Estimat Glomerular Filtration Rate , Glucose Level 76, Hemoglobin A1c 5.9, Uric Acid 5.5, Calcium Level 8.0L, Phosphorus Level 2.1L, Magnesium Level 1.7L, Total Bilirubin 0.3, Gamma Glutamyl Transpeptidase 5, Aspartate Amino Transf (AST/SGOT) 23, Alanine Aminotransferase (ALT/SGPT) 37, Alkaline Phosphatase 78, C-Reactive Protein, Quantitative < 0.4, Pro-B-Type Natriuretic Peptide 1245H, Total Protein 5.8L, Albumin 2.3L, Globulin 3.5, Albumin/Globulin Ratio 0.7L, Triglycerides Level 57, Cholesterol Level 139, LDL Cholesterol 92, HDL Cholesterol 36L, Cholesterol/HDL Ratio 3.9, Vitamin B12 Level 483, Folate 12.6 Height (Feet): 5 Height (Inches): 9.00 Weight (Pounds): 180 General Appearance: no apparent distress Cardiovascular: normal rate Respiratory/Chest: decreased breath sounds Abdomen: soft, distended Herve Marshall MD February 15, 2019 13:10
--- NOTE | 2019-02-15 14:51 | Cardiology Report ---
APPROVED REPORT EKG Measurement Heart [id number] AL 192P [id number] Sequential AV paced rhythm
[2019-02-15] MEDS ORDERED: D5 1/2NS 1000ml IV ONE (14:59)
[2019-02-15 16:00] VITALS: BP 131/64
--- NOTE | 2019-02-15 16:38 | Physician Query ---
Clarification is required for compliance, coding accuracy, and to reflect severity of illness for this patient Dear NYDIA Maradiaga Date: __ Panel Instrument Repairer/CDS Name: PRISCILLA The patient is admitted for failure to thrive, not eating at the SNF. H&P:ASSESSMENT/PLAN: Persistent refractory hypokalemia, urinary tract infection , malnutrition, failure to thrive, not eating. Labs: Alb: 2.5,2.6,2.3 Alb/Glb: 0.6,0.7 Total Protein: 6.6,6.2,5.8 Please select the most appropriate option: [] Protein/Calorie Malnutrition [] Mild [] Moderate [] Severe [] Hypoalbuminemia [] Emancipated w/ Malnutrition [] [place]or (rare in [facility]) [] Marasmus [] Other [] Unable to determine [] Not Applicable Present on Admission: [] Yes [] No [] Clinically Undetermined Physician signature Date Please also document in your Progress Notes and/or Discharge Summary and indicate if the condition was present on admission. MTDD
--- NOTE | 2019-02-15 19:02 | NUR ---
HAND-OFF: Report given to ANA PAULA Castaneda.
[2019-02-15 20:00] VITALS: BP 114/56
--- NOTE | 2019-02-15 20:00 | NUR ---
NURSE NOTES: Patient received in bed, awake and alert. No signs of acute distress at this time. No complaints of pain or discomfort. Condom catheter draining via gravity. Call light in reach. Will continue plan of care.
--- NOTE | 2019-02-15 20:45 | General Progress Note ---
Assessment/Plan Problem List: (1) Diabetes mellitus ICD Codes: E11.9 - Type 2 diabetes mellitus without complications SNOMED: 61147695 (2) Hypokalemia ICD Codes: E87.6 - Hypokalemia SNOMED: 32688534 (3) UTI (urinary tract infection) ICD Codes: N39.0 - Urinary tract infection, site not specified SNOMED: 88856946 Status: progressing Assessment/Plan: critical low k s/p replacement FTT niddm reviewed chart and labs dehydration Subjective ROS Limited/Unobtainable: Yes Allergies: Coded Allergies: No Known Allergies (Unverified , 04/22/17) Objective Last 24 Hour Vital Signs Date Time Temp Pulse Resp B/P (MAP) Pulse Ox O2 Delivery O2 Flow Rate FiO2 02/15/19 16:00 98.5 67 16 131/64 (86) 98 02/15/19 14:09 127/64 02/15/19 12:00 97.4 71 18 127/64 (85) 99 02/15/19 08:48 Room Air 02/15/19 08:14 66 134/66 02/15/19 07:57 97.9 66 14 134/66 (88) 100 02/15/19 05:28 138/69 02/15/19 04:00 98.6 66 18 138/69 (92) 100 02/15/19 00:00 97.3 63 18 128/58 (81) 100 02/14/19 21:09 70 141/61 02/14/19 21:08 141/61 02/14/19 21:00 Room Air Intake and Output 02/14/19 02/15/19 18:59 06:59 Intake Total 530 ml Output Total 150 ml Balance 530 ml -150 ml Intake Oral 120 ml IV Total 410 ml Output Urine Total 150 ml # Voids 2 # Bowel Movements 1 Laboratory Tests 02/15/19 05:40: White Blood Count 7.1, Red Blood Count 3.99L, Hemoglobin 12.4L, Hematocrit 37.2L , Mean Corpuscular Volume 93, Mean Corpuscular Hemoglobin 31.1H, Mean Corpuscular Hemoglobin Concent 33.4, Red Cell Distribution Width 14.0, Platelet Count 199, Mean Platelet Volume 6.2L, Neutrophils (%) (Auto) 73.1, Lymphocytes ( %) (Auto) 18.7L, Monocytes (%) (Auto) 6.8, Eosinophils (%) (Auto) 0.8, Basophils (%) (Auto) 0.7, Sodium Level 147H, Potassium Level 3.4L, Chloride Level 112H, Carbon Dioxide Level 26, Anion Gap 9, Blood Urea Nitrogen 13, Creatinine 0.9, Estimat Glomerular Filtration Rate , Glucose Level 76, Hemoglobin A1c 5.9, Uric Acid 5.5, Calcium Level 8.0L, Phosphorus Level 2.1L, Magnesium Level 1.7L, Total Bilirubin 0.3, Gamma Glutamyl Transpeptidase 5, Aspartate Amino Transf (AST/SGOT) 23, Alanine Aminotransferase (ALT/SGPT) 37, Alkaline Phosphatase 78, C-Reactive Protein, Quantitative < 0.4, Pro-B-Type Natriuretic Peptide 1245H, Total Protein 5.8L, Albumin 2.3L, Globulin 3.5, Albumin/Globulin Ratio 0.7L, Triglycerides Level 57, Cholesterol Level 139, LDL Cholesterol 92, HDL Cholesterol 36L, Cholesterol/HDL Ratio 3.9, Vitamin B12 Level 483, Folate 12.6 Height (Feet): 5 Height (Inches): 9.00 Weight (Pounds): 180 EENT: PERRL/EOMI Respiratory/Chest: lungs clear Abdomen: soft Jose Francisco Chand MD February 15, 2019 20:45
[2019-02-15] MEDS: Latanoprost 0.005% Opth 2.5ml Soln BOTH EYES SCH (21:02)
[2019-02-16] VITALS (7 sets, daily range): BP systolic 114–136; BP diastolic 53–68
[2019-02-16] MEDS: HydrALAZINE 25mg tab ORAL SCH ×3 (05:54→21:09)
[2019-02-16] MEDS: NovoLOG Insulin Flexpen SUBQ SCH ×4 (05:54→21:00)
--- NOTE | 2019-02-16 07:30 | NUR ---
NURSE NOTES: Received pt from RN SHANTANU. Pt is confused and orient x3. pt is in RA, No SOB or acute respiratory distress noted. pt has intact iv access R wrist 24g SL and RFA 20g SL. all needs attended, bed is locked and is in the lowest position, call light within easy reach. will continue to monitor.
--- NOTE | 2019-02-16 07:35 | NUR ---
HAND-OFF: Report given to Fannie GOSS.
[2019-02-16] MEDS: Aspirin EC 81mg tab ORAL SCH (08:42)
[2019-02-16] MEDS: Multivitamin w/Minerals tab ORAL SCH (08:42)
[2019-02-16] MEDS: Mesalamine 400mg cap ORAL SCH ×3 (08:42→17:14)
[2019-02-16] MEDS: Lactobacillus-GG tablet ORAL SCH ×2 (08:42→17:13)
[2019-02-16] MEDS: Spironolactone 50mg tab ORAL SCH ×2 (08:44→21:02)
--- NOTE | 2019-02-16 10:34 | GI Progress Note ---
Assessment/Plan Problems: (1) Constipation ICD Codes: K59.00 - Constipation, unspecified SNOMED: 31006770 (2) Anemia ICD Codes: D64.9 - Anemia, unspecified SNOMED: 078737439 (3) Hypothyroidism ICD Codes: E03.9 - Hypothyroidism, unspecified SNOMED: 91381654 (4) Gastroparesis ICD Codes: K31.84 - Gastroparesis SNOMED: 213275042 (5) Diabetes mellitus ICD Codes: E11.9 - Type 2 diabetes mellitus without complications SNOMED: 21464594 (6) Ileus ICD Codes: K56.7 - Ileus, unspecified SNOMED: 871913780 Status: stable Status Narrative Discussed with Dr. Ortiz. Assessment/Plan Assessment - Anorexia - Malnutrition - ? depressed - constipation, per CT Recommendations - Calorie count - Remeron trial - Push po - check stool OB The patient was seen and examined at bedside and all new and available data was reviewed in the patients chart. I agree with the above findings, impression and plan. (Patient seen earlier today. Signature stamp does not reflect patient encounter time.). - Tavares Ortiz MD Objective Last 24 Hour Vital Signs Date Time Temp Pulse Resp B/P (MAP) Pulse Ox O2 Delivery O2 Flow Rate FiO2 02/16/19 08:43 71 131/61 02/16/19 08:00 100.2 71 18 131/61 (84) 100 02/16/19 05:54 135/68 02/16/19 05:10 98.0 61 14 135/68 (90) 99 02/16/19 05:00 98.0 61 14 135/68 (90) 99 02/16/19 00:00 98.4 63 14 123/53 (76) 100 02/15/19 21:00 Room Air 02/15/19 20:59 114/56 02/15/19 20:59 53 114/56 02/15/19 20:00 98.3 63 16 114/56 (75) 100 02/15/19 16:00 98.5 67 16 131/64 (86) 98 02/15/19 14:09 127/64 02/15/19 12:00 97.4 71 18 127/64 (85) 99 Intake and Output 02/15/19 02/16/19 19:00 07:00 Intake Total 1316.664 ml Balance 1316.664 ml IV Total 336.664 ml Other 980 ml # Voids 3 # Bowel Movements 1 Height (Feet): 5 Height (Inches): 9.00 Weight (Pounds): 180 General Appearance: WD/WN, no apparent distress, alert Cardiovascular: normal rate Respiratory/Chest: normal breath sounds, no respiratory distress Abdominal Exam: normal bowel sounds, non tender, soft Extremities: non-tender Cristina Galloway NP February 16, 2019 10:34
[2019-02-16 11:04] LABS: ANION GAP 5 mmol/L (5-15); BLOOD UREA NITROGEN 12 mg/dL (7-18); CARBON DIOXIDE 28 MMOL/L (21-32); CHLORIDE 113 MMOL/L (98-107); POTASSIUM 3.4 MMOL/L (3.5-5.1); SODIUM 146 MMOL/L (136-145)
[2019-02-16 11:08] LABS: ALANINE AMINOTRANSFERASE 30 U/L (12-78); ALBUMIN 2.2 G/DL (3.4-5.0); ALBUMIN/GLOBULIN RATIO 0.7 (1.0-2.7); ALKALINE PHOSPHATASE 72 U/L (46-116); ASPARTATE AMINO TRANSFERASE 17 U/L (15-37); BILIRUBIN,TOTAL 0.2 MG/DL (0.2-1.0); PHOSPHORUS 2.5 MG/DL (2.5-4.9)
--- NOTE | 2019-02-16 12:13 | NUR ---
NURSE NOTES: there is no ceftriaxone in the bin, med tech is aware, waiting to bring it. will continue to monitor.
[2019-02-16] MEDS: cefTRIAXone 1 GM in D5W 55 ML IVPB SCH (13:09)
--- NOTE | 2019-02-16 13:12 | Diagnostic Imaging Report ---
EXAM: XR Chest, 1 View CLINICAL HISTORY: AMS TECHNIQUE: Frontal view of the chest. COMPARISON: Chest radiograph on 04/20/2018 FINDINGS: Hardware: None. Lungs/pleura: Normal. No focal consolidation. No pleural effusion or pneumothorax. Heart/mediastinum: Interval placement of a left-sided pacemaker. No cardiomegaly. Soft tissues: Unremarkable. Bones: No acute fracture. Degenerative changes of the acromioclavicular joint and spine. Upper abdomen: Normal. IMPRESSION: No acute disease identified.
--- NOTE | 2019-02-16 13:14 | Infectious Diseases Prog Note ---
Assessment/Plan Assessment/Plan IMPRESSION: Pyuria, gram negative urinary tract infection. decreased appetite and failure to thrive, diabetes mellitus, hypertension, s/p pacemaker, dementia. RECOMMENDATIONS: 1. Will f/u Urine culture. 2. Continue Rocephin. Subjective ROS Limited/Unobtainable: No Constitutional: Reports: no symptoms Respiratory: Reports: no symptoms Cardiovascular: Reports: no symptoms Gastrointestinal/Abdominal: Reports: no symptoms Genitourinary: Reports: no symptoms Allergies: Coded Allergies: No Known Allergies (Unverified , 04/22/17) Objective Vital Signs Last 24 Hour Vital Signs Date Time Temp Pulse Resp B/P (MAP) Pulse Ox O2 Delivery O2 Flow Rate FiO2 02/16/19 11:46 97.3 61 16 134/53 (80) 100 02/16/19 09:14 99.0 02/16/19 09:00 Room Air 02/16/19 08:43 71 131/61 02/16/19 08:00 100.2 71 18 131/61 (84) 100 02/16/19 05:54 135/68 02/16/19 05:10 98.0 61 14 135/68 (90) 99 02/16/19 05:00 98.0 61 14 135/68 (90) 99 02/16/19 00:00 98.4 63 14 123/53 (76) 100 02/15/19 21:00 Room Air 02/15/19 20:59 114/56 02/15/19 20:59 53 114/56 02/15/19 20:00 98.3 63 16 114/56 (75) 100 02/15/19 16:00 98.5 67 16 131/64 (86) 98 02/15/19 14:09 127/64 Height (Feet): 5 Height (Inches): 9.00 Weight (Pounds): 180 General Appearance: no acute distress HEENT: mucous membranes moist Respiratory/Chest: lungs clear Cardiovascular: normal rate Abdomen: soft, non tender Extremities: no edema Neurologic/Psychiatric: alert, responsive Microbiology Date/Time Source Procedure Growth Status 02/13/19 14:39 Blood Blood Culture - Preliminary NO GROWTH AFTER 48 HOURS Resulted 02/13/19 14:30 Blood Blood Culture - Preliminary NO GROWTH AFTER 48 HOURS Resulted 02/13/19 14:50 Nasal Nares MRSA Culture - Final NO METHICILLIN RESISTANT STAPH AUREUS... Complete 02/15/19 06:00 Urine,Clean Catch Urine Culture - Preliminary Gram Negative Bacillus 1 Resulted 02/13/19 14:50 Rectum VRE Culture - Final Enterococcus Faecium - Vre Complete 02/13/19 14:50 Rectum - Final NO CARBAPENEM-RESISTANT ENTEROBACTERI... Complete Laboratory Tests Test 02/16/19 10:30 Sodium Level 146 MMOL/L (136-145) H Potassium Level 3.4 MMOL/L (3.5-5.1) L Chloride Level 113 MMOL/L (98-107) H Carbon Dioxide Level 28 MMOL/L (21-32) Anion Gap 5 mmol/L (5-15) Blood Urea Nitrogen 12 mg/dL (7-18) Creatinine 1.0 MG/DL (0.55-1.30) Estimat Glomerular Filtration Rate mL/min (>60) Glucose Level 113 MG/DL (74-106) H Calcium Level 8.0 MG/DL (8.5-10.1) L Phosphorus Level 2.5 MG/DL (2.5-4.9) Magnesium Level 2.0 MG/DL (1.8-2.4) Total Bilirubin 0.2 MG/DL (0.2-1.0) Aspartate Amino Transf (AST/SGOT) 17 U/L (15-37) Alanine Aminotransferase (ALT/SGPT) 30 U/L (12-78) Alkaline Phosphatase 72 U/L (46-116) Total Protein 5.5 G/DL (6.4-8.2) L Albumin 2.2 G/DL (3.4-5.0) L Globulin 3.3 g/dL Albumin/Globulin Ratio 0.7 (1.0-2.7) L Current Medications Medications (Trade) Dose Ordered Sig/Kevin Route PRN Reason Start Time Stop Time Status Last Admin Dose Admin Acetaminophen (Tylenol) 650 mg Q6H PRN ORAL Fever/PARK/Mild Pain (1-3) 02/13/19 19:00 03/15/19 18:59 02/16/19 08:44 Amlodipine Besylate (Norvasc) 5 mg EVERY 12 HOURS ORAL 02/14/19 21:00 03/15/19 20:59 02/16/19 08:43 Aspirin (Ecotrin) 81 mg DAILY ORAL 02/14/19 09:00 03/16/19 08:59 02/16/19 08:42 Atorvastatin Calcium (Lipitor) 10 mg BEDTIME ORAL 02/13/19 21:00 03/15/19 20:59 02/15/19 20:59 Ceftriaxone Sodium 1 gm/ Dextrose 55 ml @ 110 mls/hr Q24H IVPB 02/14/19 12:00 02/21/19 11:59 02/16/19 13:09 Clonidine HCl (Catapres Tab) 0.1 mg Q4H PRN ORAL SBP > 160mmHg 02/13/19 19:00 03/15/19 18:59 Dextrose (Dextrose 50%) 25 ml Q30M PRN IV Hypoglycemia 02/13/19 19:00 03/15/19 18:59 Dextrose (Dextrose 50%) 50 ml Q30M PRN IV Hypoglycemia 02/13/19 19:00 03/15/19 18:59 Hydralazine HCl (Apresoline) 75 mg EVERY 8 HOURS ORAL 02/14/19 14:00 03/15/19 21:59 02/16/19 05:54 Insulin Aspart (NovoLOG) BEFORE MEALS AND HS SUBQ 02/13/19 21:00 03/15/19 20:59 02/15/19 05:27 Lactobacillus Acidophilus (Culturelle) 1 tab BID ORAL 02/14/19 09:00 03/16/19 08:59 02/16/19 08:42 Latanoprost (Xalatan) 1 drop BEDTIME BOTH EYES 02/13/19 21:00 03/15/19 20:59 02/15/19 21:02 Mesalamine (Asacol) 1,600 mg TID ORAL 02/14/19 18:00 03/16/19 17:59 02/16/19 08:42 Mirtazapine (Remeron) 7.5 mg BEDTIME ORAL 02/13/19 23:00 03/15/19 22:59 02/15/19 20:58 Multivitamins Therapeutic (Therapeutic Multivitamin) 1 ea DAILY ORAL 02/14/19 09:00 03/16/19 08:59 02/16/19 08:42 Pantoprazole (Protonix) 40 mg EVERY 12 HOURS ORAL 02/14/19 21:00 03/16/19 20:59 02/16/19 08:42 Potassium Chloride (K-Dur) 20 meq BID ORAL 02/14/19 18:00 03/16/19 08:59 02/16/19 08:42 Sennosides (Senokot) 8.6 mg HSPRN PRN ORAL Constipation 02/13/19 21:00 03/15/19 20:59 Simethicone (Mylicon) 80 mg BIDPRN PRN ORAL GAS PAIN 02/13/19 19:00 03/15/19 18:59 Spironolactone (Aldactone) 50 mg EVERY 12 HOURS ORAL 02/13/19 22:00 03/15/19 21:59 02/16/19 08:44 Micky Avilez MD February 16, 2019 13:14
--- NOTE | 2019-02-16 13:43 | NUR ---
RD ASSESSMENT & RECOMMENDATIONS SEE CARE ACTIVITY FOR COMPLETE ASSESSMENT DAILY ESTIMATED NEEDS: Needs based on DM, cardiac, possible wt loss/ 72.7kg 25-30 kcals/kg 2796-6987 total kcals 1-1.5 g protein/kg 73-109 g total protein 25-30 mL/kg 6985-0962 total fluid mLs NUTRITION DIAGNOSIS: *Increased kcal and protein needs r/t poor po intake, h/o CVA as evidenced by s/p Kcal count, po intake is averaging <50% est needs. *Altered nutrition related lab values R/T clinical condition as evidenced by elev Na(146), critically low K (2.4->3.4). CURRENT DIET: CCHO MED, MS GROUND PO DIET RECOMMENDATIONS: [place]/ regular diet (texture per SOFTWARE TECHNICAL LEAD) ADDITIONAL RECOMMENDATIONS: * Calibrated bedscale wt for accurate CBW * Monitor lytes daily, replete as needed -> consistently low K * Add Glucerna TID w/ meals * Add snacks in b/w meals * Consider PM tube feedings if part of POC. * SOFTWARE TECHNICAL LEAD eval ---- 48 HOUR CALORIE COUNT: 4 out of 6 menus available: variable po intake. Total of 1005 kcal for course of 4 meals, averaging 251 kcal/meal-> INSUFFICIENT. Discussed w/ TOP LOADER.
--- NOTE | 2019-02-16 13:56 | Nephrology Progress Note ---
Assessment/Plan Problem List: (1) UTI (urinary tract infection) (2) Hypokalemia (3) HTN (hypertension) Assessment HypoKalemia UTI HTN h/o Ileus FFT Plan Mag IV- K supplement IV and PO Aldactone resume Asacol monitor lytes per orders Subjective ROS Limited/Unobtainable: No Constitutional: Reports: malaise Objective Objective Last 24 Hour Vital Signs Date Time Temp Pulse Resp B/P (MAP) Pulse Ox O2 Delivery O2 Flow Rate FiO2 02/16/19 13:27 134/53 02/16/19 11:46 97.3 61 16 134/53 (80) 100 02/16/19 09:14 99.0 02/16/19 09:00 Room Air 02/16/19 08:43 71 131/61 02/16/19 08:00 100.2 71 18 131/61 (84) 100 02/16/19 05:54 135/68 02/16/19 05:10 98.0 61 14 135/68 (90) 99 02/16/19 05:00 98.0 61 14 135/68 (90) 99 02/16/19 00:00 98.4 63 14 123/53 (76) 100 02/15/19 21:00 Room Air 02/15/19 20:59 114/56 02/15/19 20:59 53 114/56 02/15/19 20:00 98.3 63 16 114/56 (75) 100 02/15/19 16:00 98.5 67 16 131/64 (86) 98 02/15/19 14:09 127/64 Intake and Output 02/15/19 02/16/19 19:00 07:00 Intake Total 1316.664 ml Balance 1316.664 ml IV Total 336.664 ml Other 980 ml # Voids 3 # Bowel Movements 1 Laboratory Tests 02/16/19 10:30: Sodium Level 146H, Potassium Level 3.4L, Chloride Level 113H, Carbon Dioxide Level 28, Anion Gap 5, Blood Urea Nitrogen 12, Creatinine 1.0, Estimat Glomerular Filtration Rate , Glucose Level 113H, Calcium Level 8.0L, Phosphorus Level 2.5, Magnesium Level 2.0, Total Bilirubin 0.2, Aspartate Amino Transf (AST /SGOT) 17, Alanine Aminotransferase (ALT/SGPT) 30, Alkaline Phosphatase 72, Total Protein 5.5L, Albumin 2.2L, Globulin 3.3, Albumin/Globulin Ratio 0.7L Height (Feet): 5 Height (Inches): 9.00 Weight (Pounds): 180 General Appearance: no apparent distress Cardiovascular: normal rate Respiratory/Chest: decreased breath sounds Abdomen: soft, distended Herve Marshall MD February 16, 2019 13:56
--- NOTE | 2019-02-16 14:34 | Hematology/Onc Progress Note ---
Assessment/Plan Assessment/Plan Assessment and Recs: # Failure to thrive (FTT) - decreased bmi and low protein, protein decreased, decreased po intake --> have ordered for cea level (pending) --> will also obtain q3d caloric counts --> may consider mirtazapine as appetite stimulant --> GI consult has ordered, appreciate recs --> may need a gtube # Anemia of chronic disease due to underlying chronic medical issues, multifactorial --> Anemia workup has been ordered, rule out gi bleed --> No evidence of hemolysis is noted, peripheral smear has been reviewed. --> Hgb goal >7. Transfuse prn. --> Epogen or iron at this time is not particularly indicated --> Medications have been reviewed # Episode of generalized weakness --> r/o malignancy, cea ordered --> ivf have been started # Encephalopathy --> neuro eval as needed # Dehydration # Hypokalemia The timing of this note does not necessarily reflect the time of the patient was seen. Greatly appreciate consultation! Subjective Cardiovascular: Denies: no symptoms, chest pain, edema, irregular heart rate, lightheadedness, palpitations, syncope, other Respiratory: Denies: no symptoms, cough, shortness of breath, SOB with excertion, SOB at rest, sputum, wheezing, other Gastrointestinal/Abdominal: Denies: no symptoms, abdomen distended, abdominal pain, black stools, tarry stools, blood in stool, constipated, diarrhea, difficulty swallowing, nausea, poor appetite, poor fluid intake, rectal bleeding , vomiting, other Genitourinary: Denies: no symptoms, burning, discharge, frequency, flank pain, hematuria, incontinence, pain, urgency, other Endocrine: Denies: no symptoms, excessive sweating, flushing, intolerance to cold, intolerance to heat, increased hunger, increased thirst, increased urine, unexplained weight gain, unexplained weight loss, other Hematologic/Lymphatic: Denies: no symptoms, anemia, easy bleeding, easy bruising, adenopathy, other Allergies: Coded Allergies: No Known Allergies (Unverified , 04/22/17) Subjective 02/15: discussed care with , may need gtube, seen by gi 02/16: no events noted, on abx, no fevers, with uti Objective Objective Current Medications Medications (Trade) Dose Ordered Sig/Kevin Route PRN Reason Start Time Stop Time Status Last Admin Dose Admin Acetaminophen (Tylenol) 650 mg Q6H PRN ORAL Fever/PARK/Mild Pain (1-3) 02/13/19 19:00 03/15/19 18:59 02/16/19 08:44 Amlodipine Besylate (Norvasc) 5 mg EVERY 12 HOURS ORAL 02/14/19 21:00 03/15/19 20:59 02/16/19 08:43 Aspirin (Ecotrin) 81 mg DAILY ORAL 02/14/19 09:00 03/16/19 08:59 02/16/19 08:42 Atorvastatin Calcium (Lipitor) 10 mg BEDTIME ORAL 02/13/19 21:00 03/15/19 20:59 02/15/19 20:59 Ceftriaxone Sodium 1 gm/ Dextrose 55 ml @ 110 mls/hr Q24H IVPB 02/14/19 12:00 02/21/19 11:59 02/16/19 13:09 Clonidine HCl (Catapres Tab) 0.1 mg Q4H PRN ORAL SBP > 160mmHg 02/13/19 19:00 03/15/19 18:59 Dextrose (Dextrose 50%) 25 ml Q30M PRN IV Hypoglycemia 02/13/19 19:00 03/15/19 18:59 Dextrose (Dextrose 50%) 50 ml Q30M PRN IV Hypoglycemia 02/13/19 19:00 03/15/19 18:59 Hydralazine HCl (Apresoline) 75 mg EVERY 8 HOURS ORAL 02/14/19 14:00 03/15/19 21:59 02/16/19 13:27 Insulin Aspart (NovoLOG) BEFORE MEALS AND HS SUBQ 02/13/19 21:00 03/15/19 20:59 02/15/19 05:27 Lactobacillus Acidophilus (Culturelle) 1 tab BID ORAL 02/14/19 09:00 03/16/19 08:59 02/16/19 08:42 Latanoprost (Xalatan) 1 drop BEDTIME BOTH EYES 02/13/19 21:00 03/15/19 20:59 02/15/19 21:02 Mesalamine (Asacol) 1,600 mg TID ORAL 02/14/19 18:00 03/16/19 17:59 02/16/19 13:27 Mirtazapine (Remeron) 7.5 mg BEDTIME ORAL 02/13/19 23:00 03/15/19 22:59 02/15/19 20:58 Multivitamins Therapeutic (Therapeutic Multivitamin) 1 ea DAILY ORAL 02/14/19 09:00 03/16/19 08:59 02/16/19 08:42 Pantoprazole (Protonix) 40 mg EVERY 12 HOURS ORAL 02/14/19 21:00 03/16/19 20:59 02/16/19 08:42 Potassium Chloride (K-Dur) 40 meq BID ORAL 02/16/19 18:00 03/16/19 08:59 Sennosides (Senokot) 8.6 mg HSPRN PRN ORAL Constipation 02/13/19 21:00 03/15/19 20:59 Simethicone (Mylicon) 80 mg BIDPRN PRN ORAL GAS PAIN 02/13/19 19:00 03/15/19 18:59 Spironolactone (Aldactone) 50 mg EVERY 12 HOURS ORAL 02/13/19 22:00 03/15/19 21:59 02/16/19 08:44 Last 24 Hour Vital Signs Date Time Temp Pulse Resp B/P (MAP) Pulse Ox O2 Delivery O2 Flow Rate FiO2 02/16/19 13:27 134/53 02/16/19 11:46 97.3 61 16 134/53 (80) 100 02/16/19 09:14 99.0 02/16/19 09:00 Room Air 02/16/19 08:43 71 131/61 02/16/19 08:00 100.2 71 18 131/61 (84) 100 02/16/19 05:54 135/68 02/16/19 05:10 98.0 61 14 135/68 (90) 99 02/16/19 05:00 98.0 61 14 135/68 (90) 99 02/16/19 00:00 98.4 63 14 123/53 (76) 100 02/15/19 21:00 Room Air 02/15/19 20:59 114/56 02/15/19 20:59 53 114/56 02/15/19 20:00 98.3 63 16 114/56 (75) 100 02/15/19 16:00 98.5 67 16 131/64 (86) 98 02/15/19 14:09 127/64 02/15/19 12:00 97.4 71 18 127/64 (85) 99 02/15/19 08:48 Room Air 02/15/19 08:14 66 134/66 02/15/19 07:57 97.9 66 14 134/66 (88) 100 02/15/19 05:28 138/69 02/15/19 04:00 98.6 66 18 138/69 (92) 100 02/15/19 00:00 97.3 63 18 128/58 (81) 100 02/14/19 21:09 70 141/61 02/14/19 21:08 141/61 02/14/19 21:00 Room Air 02/14/19 20:00 98.5 70 18 141/61 (87) 100 02/14/19 16:00 97.9 68 19 159/100 (119) 100 Intake and Output 02/15/19 02/16/19 19:00 07:00 Intake Total 1316.664 ml Balance 1316.664 ml IV Total 336.664 ml Other 980 ml # Voids 3 # Bowel Movements 1 Labs Test 02/13/19 14:45 02/14/19 08:35 02/15/19 05:40 02/16/19 10:30 White Blood Count 7.5 K/UL (4.8-10.8) 7.5 K/UL (4.8-10.8) 7.1 K/UL (4.8-10.8) Red Blood Count 4.23 M/UL (4.70-6.10) 4.24 M/UL (4.70-6.10) 3.99 M/UL (4.70-6.10) Hemoglobin 12.9 G/DL (14.2-18.0) 12.8 G/DL (14.2-18.0) 12.4 G/DL (14.2-18.0) Hematocrit 39.3 % (42.0-52.0) 39.3 % (42.0-52.0) 37.2 % (42.0-52.0) Mean Corpuscular Volume 93 FL (80-99) 93 FL (80-99) 93 FL (80-99) Mean Corpuscular Hemoglobin 30.5 PG (27.0-31.0) 30.2 PG (27.0-31.0) 31.1 PG (27.0-31.0) Mean Corpuscular Hemoglobin Concent 32.8 G/DL (32.0-36.0) 32.6 G/DL (32.0-36.0) 33.4 G/DL (32.0-36.0) Red Cell Distribution Width 13.9 % (11.6-14.8) 13.6 % (11.6-14.8) 14.0 % (11.6-14.8) Platelet Count 257 K/UL (150-450) 223 K/UL (150-450) 199 K/UL (150-450) Mean Platelet Volume 6.7 FL (6.5-10.1) 6.4 FL (6.5-10.1) 6.2 FL (6.5-10.1) Neutrophils (%) (Auto) 77.1 % (45.0-75.0) 76.0 % (45.0-75.0) 73.1 % (45.0-75.0) Lymphocytes (%) (Auto) 16.9 % (20.0-45.0) 17.4 % (20.0-45.0) 18.7 % (20.0-45.0) Monocytes (%) (Auto) 5.0 % (1.0-10.0) 5.1 % (1.0-10.0) 6.8 % (1.0-10.0) Eosinophils (%) (Auto) 0.4 % (0.0-3.0) 0.7 % (0.0-3.0) 0.8 % (0.0-3.0) Basophils (%) (Auto) 0.7 % (0.0-2.0) 0.8 % (0.0-2.0) 0.7 % (0.0-2.0) Urine Color Yellow Urine Appearance Clear Urine pH 5 (4.5-8.0) Urine Specific [place] 1.020 (1.005-1.035) Urine Protein 2+ (NEGATIVE) Urine Glucose (UA) Negative (NEGATIVE) Urine Ketones Negative (NEGATIVE) Urine Blood Negative (NEGATIVE) Urine Nitrite Negative (NEGATIVE) Urine Bilirubin Negative (NEGATIVE) Urine Urobilinogen Normal MG/DL (0.0-1.0) Urine Leukocyte Esterase 3+ (NEGATIVE) Urine RBC 0-2 /HPF (0 - 0) Urine WBC 5-10 /HPF (0 - 0) Urine Squamous Epithelial Cells None /LPF (NONE/OCC) Urine Bacteria Few /HPF (NONE) Sodium Level 148 MMOL/L (136-145) 149 MMOL/L (136-145) 147 MMOL/L (136-145) 146 MMOL/L (136-145) Potassium Level 4.4 MMOL/L (3.5-5.1) 2.4 MMOL/L (3.5-5.1) 3.4 MMOL/L (3.5-5.1) 3.4 MMOL/L (3.5-5.1) Chloride Level 112 MMOL/L (98-107) 114 MMOL/L (98-107) 112 MMOL/L (98-107) 113 MMOL/L (98-107) Carbon Dioxide Level 30 MMOL/L (21-32) 29 MMOL/L (21-32) 26 MMOL/L (21-32) 28 MMOL/L (21-32) Anion Gap 6 mmol/L (5-15) 5 mmol/L (5-15) 9 mmol/L (5-15) 5 mmol/L (5-15) Blood Urea Nitrogen 17 mg/dL (7-18) 17 mg/dL (7-18) 13 mg/dL (7-18) 12 mg/dL (7-18) Creatinine 0.9 MG/DL (0.55-1.30) 0.9 MG/DL (0.55-1.30) 0.9 MG/DL (0.55-1.30) 1.0 MG/DL (0.55-1.30) Estimat Glomerular Filtration Rate mL/min (>60) mL/min (>60) mL/min (>60) mL/min (>60) Glucose Level 121 MG/DL (74-106) 102 MG/DL (74-106) 76 MG/DL (74-106) 113 MG/DL (74-106) Lactic Acid Level 1.90 mmol/L (0.4-2.0) Calcium Level 8.4 MG/DL (8.5-10.1) 8.4 MG/DL (8.5-10.1) 8.0 MG/DL (8.5-10.1) 8.0 MG/DL (8.5-10.1) Total Bilirubin 0.5 MG/DL (0.2-1.0) 0.3 MG/DL (0.2-1.0) 0.3 MG/DL (0.2-1.0) 0.2 MG/DL (0.2-1.0) Aspartate Amino Transf (AST/SGOT) 42 U/L (15-37) 23 U/L (15-37) 23 U/L (15-37) 17 U/L (15-37) Alanine Aminotransferase (ALT/SGPT) 57 U/L (12-78) 46 U/L (12-78) 37 U/L (12-78) 30 U/L (12-78) Alkaline Phosphatase 88 U/L (46-116) 83 U/L (46-116) 78 U/L (46-116) 72 U/L (46-116) Pro-B-Type Natriuretic Peptide 1007 pg/mL (0-125) 1245 pg/mL (0-125) Total Protein 6.6 G/DL (6.4-8.2) 6.2 G/DL (6.4-8.2) 5.8 G/DL (6.4-8.2) 5.5 G/DL (6.4-8.2) Albumin 2.5 G/DL (3.4-5.0) 2.6 G/DL (3.4-5.0) 2.3 G/DL (3.4-5.0) 2.2 G/DL (3.4-5.0) Globulin 4.1 g/dL 3.6 g/dL 3.5 g/dL 3.3 g/dL Albumin/Globulin Ratio 0.6 (1.0-2.7) 0.7 (1.0-2.7) 0.7 (1.0-2.7) 0.7 (1.0-2.7 ) Thyroid Stimulating Hormone (TSH) 1.919 uiU/mL (0.358-3.740) Hemoglobin A1c 5.9 % (4.3-6.0) Uric Acid 5.5 MG/DL (2.6-7.2) Phosphorus Level 2.1 MG/DL (2.5-4.9) 2.5 MG/DL (2.5-4.9) Magnesium Level 1.7 MG/DL (1.8-2.4) 2.0 MG/DL (1.8-2.4) Gamma Glutamyl Transpeptidase 5 U/L (5-85) C-Reactive Protein, Quantitative < 0.4 mg/dL (0.00-0.90) Triglycerides Level 57 MG/DL (30-150) Cholesterol Level 139 MG/DL (< 200) LDL Cholesterol 92 mg/dL (<100) HDL Cholesterol 36 MG/DL (40-60) Cholesterol/HDL Ratio 3.9 (3.3-4.4) Vitamin B12 Level 483 PG/ML (193-986) Folate 12.6 NG/ML (8.6-58.9) Height (Feet): 5 Height (Inches): 9.00 Weight (Pounds): 180 Objective Vitals: reviewed, normal Gen: lethargic, other - nonverbal Head: normocephalic, atraumatic Eyes: bilateral eye normal inspection, bilateral eye PERRL ENT: hearing grossly normal, normal pharynx Neck: full range of motion, supple/symm/no masses Respiratory: chest non-tender, lungs clear, normal breath sounds, speaking full sentences Cv: regular rate, rhythm, no edema Gi: normal bowel sounds Rectal: deferred Genitourinary: normal inspection Musculoskeletal: back normal Skin: normal color, no rash, warm/dry, well hydrated Lymphatic: no adenopathy Sterling Singletary MD February 16, 2019 14:34
--- NOTE | 2019-02-16 19:05 | NUR ---
NURSE NOTES: Pt asked for pain med, RN pulled out TYLENOL, but pt refused and RN again returned TYLENOL to pexis.
--- NOTE | 2019-02-16 19:30 | NUR ---
HAND-OFF: Report given to ANA PAULA FOURNIER.
--- NOTE | 2019-02-16 20:00 | NUR ---
NURSE NOTES: Patient received in bed, awake, denies pain or discomfort at this time. IV site intact. Condom catheter replaced. Call light in reach, will continue to monitor.
[2019-02-16] MEDS: Latanoprost 0.005% Opth 2.5ml Soln BOTH EYES SCH (21:00)
--- NOTE | 2019-02-16 22:13 | General Progress Note ---
Assessment/Plan Problem List: (1) Diabetes mellitus ICD Codes: E11.9 - Type 2 diabetes mellitus without complications SNOMED: 34941657 (2) Hypokalemia ICD Codes: E87.6 - Hypokalemia SNOMED: 58076156 (3) UTI (urinary tract infection) ICD Codes: N39.0 - Urinary tract infection, site not specified SNOMED: 56615704 Status: stable Assessment/Plan: critical low k s/p replacement FTT persistent hypokalemia needs fluids anemia niddm reviewed chart and labs dehydration Subjective ROS Limited/Unobtainable: Yes Allergies: Coded Allergies: No Known Allergies (Unverified , 04/22/17) Objective Last 24 Hour Vital Signs Date Time Temp Pulse Resp B/P (MAP) Pulse Ox O2 Delivery O2 Flow Rate FiO2 02/16/19 21:09 114/61 02/16/19 21:00 61 114/61 02/16/19 21:00 Room Air 02/16/19 20:00 99.1 61 18 114/61 (78) 100 02/16/19 16:00 97.7 65 17 136/59 (84) 99 02/16/19 13:27 134/53 02/16/19 11:46 97.3 61 16 134/53 (80) 100 02/16/19 09:14 99.0 02/16/19 09:00 Room Air 02/16/19 08:43 71 131/61 02/16/19 08:00 100.2 71 18 131/61 (84) 100 02/16/19 05:54 135/68 02/16/19 05:10 98.0 61 14 135/68 (90) 99 02/16/19 05:00 98.0 61 14 135/68 (90) 99 02/16/19 00:00 98.4 63 14 123/53 (76) 100 Intake and Output 02/15/19 02/16/19 18:59 06:59 Intake Total 1316.664 ml Balance 1316.664 ml IV Total 336.664 ml Other 980 ml # Voids 3 # Bowel Movements 1 Laboratory Tests 02/16/19 10:30: Sodium Level 146H, Potassium Level 3.4L, Chloride Level 113H, Carbon Dioxide Level 28, Anion Gap 5, Blood Urea Nitrogen 12, Creatinine 1.0, Estimat Glomerular Filtration Rate , Glucose Level 113H, Calcium Level 8.0L, Phosphorus Level 2.5, Magnesium Level 2.0, Total Bilirubin 0.2, Aspartate Amino Transf (AST /SGOT) 17, Alanine Aminotransferase (ALT/SGPT) 30, Alkaline Phosphatase 72, Total Protein 5.5L, Albumin 2.2L, Globulin 3.3, Albumin/Globulin Ratio 0.7L Height (Feet): 5 Height (Inches): 9.00 Weight (Pounds): 180 Cardiovascular: regular rhythm Respiratory/Chest: lungs clear Abdomen: soft Jose Francisco Chand MD February 16, 2019 22:13
[2019-02-17] VITALS: BP 138/94
[2019-02-17 04:00] VITALS: BP 152/68
[2019-02-17] MEDS: HydrALAZINE 25mg tab ORAL SCH (05:54)
[2019-02-17] MEDS: NovoLOG Insulin Flexpen SUBQ SCH ×2 (05:57→11:30)
[2019-02-17 06:43] LABS: BASOPHILS % (AUTO) 0.5 % (0.0-2.0); EOSINOPHILS % (AUTO) 0.8 % (0.0-3.0); HEMATOCRIT 34.5 % (42.0-52.0); HEMOGLOBIN 11.5 G/DL (14.2-18.0); LYMPHOCYTES % (AUTO) 19.2 % (20.0-45.0); MEAN CORPUSCULAR VOLUME 92 FL (80-99); NEUTROPHILS % (AUTO) 73.5 % (45.0-75.0); PLATELET COUNT 194 K/UL (150-450); RED BLOOD COUNT 3.73 M/UL (4.70-6.10); RED CELL DISTRIBUTION WIDTH 14.1 % (11.6-14.8); WHITE BLOOD COUNT 7.2 K/UL (4.8-10.8)
[2019-02-17 07:07] LABS: ANION GAP 5 mmol/L (5-15); BLOOD UREA NITROGEN 16 mg/dL (7-18); CALCIUM 8.2 MG/DL (8.5-10.1); CARBON DIOXIDE 25 MMOL/L (21-32); CHLORIDE 112 MMOL/L (98-107); CREATININE 0.9 MG/DL (0.55-1.30); POTASSIUM 3.8 MMOL/L (3.5-5.1); SODIUM 142 MMOL/L (136-145)
--- NOTE | 2019-02-17 07:09 | NUR ---
HAND-OFF: Report given to Fannie GOSS.
--- NOTE | 2019-02-17 07:20 | NUR ---
NURSE NOTES: Received pt from RN SHANTANU. Pt is confused and orient x3. pt is in RA, No SOB or acute respiratory distress noted. pt has intact iv access R wrist 24g SL and RFA 20g SL. pt is eating breakfast with L hand. all needs attended, bed is locked and is in the lowest position, call light within easy reach. will continue to monitor.
[2019-02-17 08:00] VITALS: BP 109/61
[2019-02-17] MEDS: Mesalamine 400mg cap ORAL SCH (09:03)
[2019-02-17] MEDS: Lactobacillus-GG tablet ORAL SCH (09:04)
[2019-02-17] MEDS: Multivitamin w/Minerals tab ORAL SCH (09:04)
[2019-02-17] MEDS: Aspirin EC 81mg tab ORAL SCH (09:04)
[2019-02-17] MEDS: Spironolactone 50mg tab ORAL SCH (09:04)
[2019-02-17] MEDS ORDERED: CEFTRIAXONE1 G2 IV (09:19)
--- NOTE | 2019-02-17 10:53 | GI Progress Note ---
Assessment/Plan Problems: (1) Constipation ICD Codes: K59.00 - Constipation, unspecified SNOMED: 17093972 (2) Anemia ICD Codes: D64.9 - Anemia, unspecified SNOMED: 799149746 (3) Hypothyroidism ICD Codes: E03.9 - Hypothyroidism, unspecified SNOMED: 58319149 (4) Gastroparesis ICD Codes: K31.84 - Gastroparesis SNOMED: 346464867 (5) Diabetes mellitus ICD Codes: E11.9 - Type 2 diabetes mellitus without complications SNOMED: 40505975 (6) Ileus ICD Codes: K56.7 - Ileus, unspecified SNOMED: 660477728 Status: stable, unchanged Status Narrative Discussed with Dr. Ortiz Assessment/Plan Assessment - Anorexia - Malnutrition - ? depressed - constipation, per CT Recommendations - Calorie count - Remeron trial - Push po - check stool OB DC planning The patient was seen and examined at bedside and all new and available data was reviewed in the patients chart. I agree with the above findings, impression and plan. (Patient seen earlier today. Signature stamp does not reflect patient encounter time.). - Tavares Ortiz MD Subjective Gastrointestinal/Abdominal: Reports: no symptoms Objective Last 24 Hour Vital Signs Date Time Temp Pulse Resp B/P (MAP) Pulse Ox O2 Delivery O2 Flow Rate FiO2 02/17/19 09:04 62 109/61 02/17/19 09:00 Room Air 02/17/19 08:00 98.4 62 18 109/61 (77) 99 02/17/19 05:54 152/68 02/17/19 04:00 98.6 61 18 152/68 (96) 100 02/17/19 00:00 98.4 61 18 138/94 (109) 100 02/16/19 21:09 114/61 02/16/19 21:00 61 114/61 02/16/19 21:00 Room Air 02/16/19 20:00 99.1 61 18 114/61 (78) 100 02/16/19 16:00 97.7 65 17 136/59 (84) 99 02/16/19 13:27 134/53 02/16/19 11:46 97.3 61 16 134/53 (80) 100 Intake and Output 02/16/19 02/17/19 19:00 07:00 Intake Total 695 ml Output Total 400 ml 100 ml Balance 295 ml -100 ml Intake Oral 640 ml IV Total 55 ml Output Urine Total 400 ml 100 ml # Voids 2 # Bowel Movements 1 Laboratory Tests Test 02/17/19 06:10 White Blood Count 7.2 K/UL (4.8-10.8) Red Blood Count 3.73 M/UL (4.70-6.10) L Hemoglobin 11.5 G/DL (14.2-18.0) L Hematocrit 34.5 % (42.0-52.0) L Mean Corpuscular Volume 92 FL (80-99) Mean Corpuscular Hemoglobin 30.7 PG (27.0-31.0) Mean Corpuscular Hemoglobin Concent 33.2 G/DL (32.0-36.0) Red Cell Distribution Width 14.1 % (11.6-14.8) Platelet Count 194 K/UL (150-450) Mean Platelet Volume 6.5 FL (6.5-10.1) Neutrophils (%) (Auto) 73.5 % (45.0-75.0) Lymphocytes (%) (Auto) 19.2 % (20.0-45.0) L Monocytes (%) (Auto) 6.0 % (1.0-10.0) Eosinophils (%) (Auto) 0.8 % (0.0-3.0) Basophils (%) (Auto) 0.5 % (0.0-2.0) Sodium Level 142 MMOL/L (136-145) Potassium Level 3.8 MMOL/L (3.5-5.1) Chloride Level 112 MMOL/L (98-107) H Carbon Dioxide Level 25 MMOL/L (21-32) Anion Gap 5 mmol/L (5-15) Blood Urea Nitrogen 16 mg/dL (7-18) Creatinine 0.9 MG/DL (0.55-1.30) Estimat Glomerular Filtration Rate mL/min (>60) Glucose Level 84 MG/DL (74-106) Calcium Level 8.2 MG/DL (8.5-10.1) L Height (Feet): 5 Height (Inches): 9.00 Weight (Pounds): 155 General Appearance: WD/WN, no apparent distress, alert Cardiovascular: normal rate Respiratory/Chest: normal breath sounds, no respiratory distress Abdominal Exam: normal bowel sounds, non tender, soft, distended Extremities: non-tender Cristina Galloway NP February 17, 2019 10:53
[2019-02-17] MEDS: cefTRIAXone 1 GM in D5W 55 ML IVPB SCH (11:14)
[2019-02-17 12:00] VITALS: BP 137/69
--- NOTE | 2019-02-17 12:00 | NUR ---
NURSE NOTES: Pt has discharge order, all discharge assessments and instructions done. pt is stable, V/S and BS are stable. report given to ANA PAULA GILLIAM in SNF, RN aware about ceftriaxone 1g q24hrs for 4 days. ANA PAULA GILLIAM asked to keep iv access, because pt is heart stick. pt left hospital with R WRIST 24G AND LFA 20G SL. Pt's is aware about D/C. condom cath D/C. pt left hospital with accompany of ambulance personnel.
--- NOTE | 2019-02-17 13:10 | Hematology/Onc Progress Note ---
Assessment/Plan Assessment/Plan Assessment and Recs: # Failure to thrive (FTT) - decreased bmi and low protein, protein decreased, decreased po intake --> cea is 7.1, as per gi eval --> will also obtain q3d caloric counts --> may consider mirtazapine as appetite stimulant --> GI consult has ordered, appreciate recs --> may need a gtube # Anemia of chronic disease due to underlying chronic medical issues, multifactorial --> Anemia workup has been ordered, rule out gi bleed --> No evidence of hemolysis is noted, peripheral smear has been reviewed. --> Hgb goal >7. Transfuse prn. --> Epogen or iron at this time is not particularly indicated --> Medications have been reviewed # Episode of generalized weakness --> cea is 7.1, as per gi team --> ivf have been started # Encephalopathy --> neuro eval as needed # Dehydration # Hypokalemia The timing of this note does not necessarily reflect the time of the patient was seen. Greatly appreciate consultation! Subjective Constitutional: Denies: no symptoms, chills, fever, malaise, weakness, other HEENT: Denies: no symptoms, eye pain, blurred vision, tearing, double vision, ear pain, ear discharge, nose pain, nose congestion, throat pain, throat swelling, mouth pain, mouth swelling, other Cardiovascular: Denies: no symptoms, chest pain, edema, irregular heart rate, lightheadedness, palpitations, syncope, other Respiratory: Denies: no symptoms, cough, shortness of breath, SOB with excertion, SOB at rest, sputum, wheezing, other Gastrointestinal/Abdominal: Denies: no symptoms, abdomen distended, abdominal pain, black stools, tarry stools, blood in stool, constipated, diarrhea, difficulty swallowing, nausea, poor appetite, poor fluid intake, rectal bleeding , vomiting, other Genitourinary: Denies: no symptoms, burning, discharge, frequency, flank pain, hematuria, incontinence, pain, urgency, other Neurologic/Psychiatric: Denies: no symptoms, anxiety, depressed, emotional problems, headache, numbness, paresthesia, pre-existing deficit, seizure, tingling, tremors, weakness, other Endocrine: Denies: no symptoms, excessive sweating, flushing, intolerance to cold, intolerance to heat, increased hunger, increased thirst, increased urine, unexplained weight gain, unexplained weight loss, other Allergies: Coded Allergies: No Known Allergies (Unverified , 04/22/17) Subjective 02/15: discussed care with , may need gtube, seen by gi 02/16: no events noted, on abx, no fevers, with uti 02/17: on abx, no fevers or chills, no night sweats noted Objective Objective Last 24 Hour Vital Signs Date Time Temp Pulse Resp B/P (MAP) Pulse Ox O2 Delivery O2 Flow Rate FiO2 02/17/19 12:00 98.9 62 18 137/69 (91) 100 02/17/19 09:04 62 109/61 02/17/19 09:00 Room Air 02/17/19 08:00 98.4 62 18 109/61 (77) 99 02/17/19 05:54 152/68 02/17/19 04:00 98.6 61 18 152/68 (96) 100 02/17/19 00:00 98.4 61 18 138/94 (109) 100 02/16/19 21:09 114/61 02/16/19 21:00 61 114/61 02/16/19 21:00 Room Air 02/16/19 20:00 99.1 61 18 114/61 (78) 100 02/16/19 16:00 97.7 65 17 136/59 (84) 99 02/16/19 13:27 134/53 02/16/19 11:46 97.3 61 16 134/53 (80) 100 02/16/19 09:14 99.0 02/16/19 09:00 Room Air 02/16/19 08:43 71 131/61 02/16/19 08:00 100.2 71 18 131/61 (84) 100 02/16/19 05:54 135/68 02/16/19 05:10 98.0 61 14 135/68 (90) 99 02/16/19 05:00 98.0 61 14 135/68 (90) 99 02/16/19 00:00 98.4 63 14 123/53 (76) 100 02/15/19 21:00 Room Air 02/15/19 20:59 114/56 02/15/19 20:59 53 114/56 02/15/19 20:00 98.3 63 16 114/56 (75) 100 02/15/19 16:00 98.5 67 16 131/64 (86) 98 02/15/19 14:09 127/64 Intake and Output 02/16/19 02/17/19 19:00 07:00 Intake Total 695 ml Output Total 400 ml 100 ml Balance 295 ml -100 ml Intake Oral 640 ml IV Total 55 ml Output Urine Total 400 ml 100 ml # Voids 2 # Bowel Movements 1 Labs Test 02/15/19 05:40 02/16/19 10:30 02/17/19 06:10 White Blood Count 7.1 K/UL (4.8-10.8) 7.2 K/UL (4.8-10.8) Red Blood Count 3.99 M/UL (4.70-6.10) 3.73 M/UL (4.70-6.10) Hemoglobin 12.4 G/DL (14.2-18.0) 11.5 G/DL (14.2-18.0) Hematocrit 37.2 % (42.0-52.0) 34.5 % (42.0-52.0) Mean Corpuscular Volume 93 FL (80-99) 92 FL (80-99) Mean Corpuscular Hemoglobin 31.1 PG (27.0-31.0) 30.7 PG (27.0-31.0) Mean Corpuscular Hemoglobin Concent 33.4 G/DL (32.0-36.0) 33.2 G/DL (32.0-36.0) Red Cell Distribution Width 14.0 % (11.6-14.8) 14.1 % (11.6-14.8) Platelet Count 199 K/UL (150-450) 194 K/UL (150-450) Mean Platelet Volume 6.2 FL (6.5-10.1) 6.5 FL (6.5-10.1) Neutrophils (%) (Auto) 73.1 % (45.0-75.0) 73.5 % (45.0-75.0) Lymphocytes (%) (Auto) 18.7 % (20.0-45.0) 19.2 % (20.0-45.0) Monocytes (%) (Auto) 6.8 % (1.0-10.0) 6.0 % (1.0-10.0) Eosinophils (%) (Auto) 0.8 % (0.0-3.0) 0.8 % (0.0-3.0) Basophils (%) (Auto) 0.7 % (0.0-2.0) 0.5 % (0.0-2.0) Sodium Level 147 MMOL/L (136-145) 146 MMOL/L (136-145) 142 MMOL/L (136-145) Potassium Level 3.4 MMOL/L (3.5-5.1) 3.4 MMOL/L (3.5-5.1) 3.8 MMOL/L (3.5-5.1) Chloride Level 112 MMOL/L (98-107) 113 MMOL/L (98-107) 112 MMOL/L (98-107) Carbon Dioxide Level 26 MMOL/L (21-32) 28 MMOL/L (21-32) 25 MMOL/L (21-32) Anion Gap 9 mmol/L (5-15) 5 mmol/L (5-15) 5 mmol/L (5-15) Blood Urea Nitrogen 13 mg/dL (7-18) 12 mg/dL (7-18) 16 mg/dL (7-18) Creatinine 0.9 MG/DL (0.55-1.30) 1.0 MG/DL (0.55-1.30) 0.9 MG/DL (0.55-1.30) Estimat Glomerular Filtration Rate mL/min (>60) mL/min (>60) mL/min (>60) Glucose Level 76 MG/DL (74-106) 113 MG/DL (74-106) 84 MG/DL (74-106) Hemoglobin A1c 5.9 % (4.3-6.0) Uric Acid 5.5 MG/DL (2.6-7.2) Calcium Level 8.0 MG/DL (8.5-10.1) 8.0 MG/DL (8.5-10.1) 8.2 MG/DL (8.5-10.1) Phosphorus Level 2.1 MG/DL (2.5-4.9) 2.5 MG/DL (2.5-4.9) Magnesium Level 1.7 MG/DL (1.8-2.4) 2.0 MG/DL (1.8-2.4) Total Bilirubin 0.3 MG/DL (0.2-1.0) 0.2 MG/DL (0.2-1.0) Gamma Glutamyl Transpeptidase 5 U/L (5-85) Aspartate Amino Transf (AST/SGOT) 23 U/L (15-37) 17 U/L (15-37) Alanine Aminotransferase (ALT/SGPT) 37 U/L (12-78) 30 U/L (12-78) Alkaline Phosphatase 78 U/L (46-116) 72 U/L (46-116) C-Reactive Protein, Quantitative < 0.4 mg/dL (0.00-0.90) Pro-B-Type Natriuretic Peptide 1245 pg/mL (0-125) Total Protein 5.8 G/DL (6.4-8.2) 5.5 G/DL (6.4-8.2) Albumin 2.3 G/DL (3.4-5.0) 2.2 G/DL (3.4-5.0) Globulin 3.5 g/dL 3.3 g/dL Albumin/Globulin Ratio 0.7 (1.0-2.7) 0.7 (1.0-2.7) Triglycerides Level 57 MG/DL (30-150) Cholesterol Level 139 MG/DL (< 200) LDL Cholesterol 92 mg/dL (<100) HDL Cholesterol 36 MG/DL (40-60) Cholesterol/HDL Ratio 3.9 (3.3-4.4) Vitamin B12 Level 483 PG/ML (193-986) Folate 12.6 NG/ML (8.6-58.9) Height (Feet): 5 Height (Inches): 9.00 Weight (Pounds): 155 Objective Vitals: reviewed, normal Gen: lethargic, other - nonverbal Head: normocephalic, atraumatic Eyes: bilateral eye normal inspection, bilateral eye PERRL ENT: hearing grossly normal, normal pharynx Neck: full range of motion, supple/symm/no masses Respiratory: chest non-tender, lungs clear, normal breath sounds, speaking full sentences Cv: regular rate, rhythm, no edema Gi: normal bowel sounds Rectal: deferred Genitourinary: normal inspection Musculoskeletal: back normal Skin: normal color, no rash, warm/dry, well hydrated Lymphatic: no adenopathy Sterling Singletary MD February 17, 2019 13:10
--- NOTE | 2019-02-18 07:54 | Discharge Summary ---
Discharge Summary Discharge Summary _ DATE OF ADMISSION: 02/13/2019 DATE OF DISCHARGE: 02/17/2019 DISCHARGED BY: Dr Chand REASON FOR ADMISSION: 78 years old male, with past medical history of hypertension, heart failure, history of CVA with right-sided deficit, COPD, diabetes, hypothyroidism, depression, BPH, anemia, DNR/DNI status, was brought from the [facility] by paramedics for evaluation due to generalized weakness , failure to thrive and reduced appetite for 1 week. Patient by himself nonverbal at baseline and was unable to provide any additional information. Upon arrival vital signs were stable. Laboratory work-up revealed no leukocytosis , hemoglobin 12.9. Urinalysis revealed pyuria, few bacteria, positive for leukocyte esterase. Sodium 148. BUN 17,creatinine 0.9. Glucose 121. Lactic acid 1.9. Pro BNP 1007 Albumin 2.5. TSH 1.919 EKG revealed sinus bradycardia , paced rhythm. Chest x-ray demonstrated no acute cardiopulmonary disease. Left-sided pacemaker noted. No cardiomegaly. Patient subsequently was admitted for further evaluation and management CONSULTANTS: ID specialist Dr. Avilez GI specialist Dr. Sher post closer Dr. Marshall agronomist/oncologist Dr. Singletary [facility] COURSE: Patient admitted and initially started on the IV hydration. GI specialist seen and evaluated patient due to anorexia of unclear etiology. Patient started on trial of Remeron . CT scan of the abdomen noted was ordered and revealed diffuse distention of colonic loops with air-filled levels. No evidence of intraperitoneal free air or free fluid. Bowel regimen instituted. Patient started on calorie count. Oral fluids were encouraged and pushed. Per GI specialist G-tube can be placed if family consent to supplement oral diet. Patient with DNR/DNI status, comfort measures only. Protein supplements implemented in plan of care as per or first assist registered nurse recommendations. GI prophylaxis provided. Hemoglobin and hematocrit remained stable. Recommended stool for occult blood to be checked at the facility. CEA was elevated 7.1. In lieu of stable hemoglobin and hematocrit, DNR status and comfort measures per [facility] GI procedures were on hold. Blood cultures were negative. Urine culture revealed Proteus mirabilis. Antibiotic provided as per ID specialist recommendations and to be completed at the [facility] to finish the course. Machine Riveter followed. According to agronomist, anemia was of chronic disease due to underlying chronic medical issue, multifactorial. No evidence of hemolysis noted. Hemoglobin and hematocrit were closely monitored with goal to keep hemoglobin above 7. Hemoglobin remained at the baseline. Prior to discharge hemoglobin 11.5, hematocrit 34.5. Epogen on iron at this time were not particularly indicated. Base Draw Operator followed. Renal parameters and electrolytes were closely monitored, electrolytes corrected as needed. Dehydration was corrected with IV fluids. Patient had hypokalemia along with low phosphorus and magnesium. All electrolytes were corrected , and prior to discharge stable within normal limits. Blood sugar was closely monitored and managed with sliding scale of insulin as needed. Hemoglobin A1c 5.9, at goal. Blood pressure was managed with calcium channel franco and hydralazine. Antiplatelet therapy with aspirin and statin were continued. Patient was continue on Spironolactone with close monitoring of volumes and cardiorenal parameters. Synthroid continued. Supportive care provided. Patient clinically stabilized and was ready for discharge transfer back to [facility] for continuation of care. Closely monitor oral intake. Complete antibiotics. Monitor electrolytes, specifically potassium. Check stool for occult blood as outpatient . FINAL DIAGNOSES: Proteus UTI Anorexia with failure to thrive, likely due to UTI Protein calorie malnutrition Diabetes mellitus Hypertension Status post pacemaker Dementia Hypothyroidism Anemia of chronic disease Constipation Hypokalemia Dehydration DISCHARGE MEDICATIONS: See Medication Reconciliation list. DISCHARGE INSTRUCTIONS: Patient was discharged to the retirement facility. Follow up with medical doctor at the facilityH I have been assigned to dictate discharge summary for this account. I was not involved in the patient's management. Kalyn Crowder NP February 18, 2019 07:54
== END 2019-02-17 12:03 | DRG 690 ==
LOC: EDBD 14:03 → EMR 15:48 → EDBEDREQ 16:47 → EMR 16:52 → 4E 16:56
DX: N39.0 Urinary tract infection, site not specified (principal); E44.0 Moderate protein-calorie malnutrition; B96.4 Proteus (mirabilis) (morganii) as the cause of diseases classified elsewhere; E87.6 Hypokalemia; R62.7 Adult failure to thrive; Z68.22 Body mass index [BMI] 22.0-22.9, adult; F03.90 Unspecified dementia, unspecified severity, without behavioral disturbance, psychotic disturbance, mood disturbance, and anxiety; J44.9 Chronic obstructive pulmonary disease, unspecified; N40.0 Benign prostatic hyperplasia without lower urinary tract symptoms; H40.9 Unspecified glaucoma; E03.9 Hypothyroidism, unspecified; D63.8 Anemia in other chronic diseases classified elsewhere; K59.00 Constipation, unspecified; E11.9 Type 2 diabetes mellitus without complications; Z95.0 Presence of cardiac pacemaker; E86.0 Dehydration; I11.0 Hypertensive heart disease with heart failure; I50.9 Heart failure, unspecified; Z86.73 Personal history of transient ischemic attack (TIA), and cerebral infarction without residual deficits; Z79.82 Long term (current) use of aspirin; Z79.4 Long term (current) use of insulin; Z66 Do not resuscitate
CPT/HCPCS: 36415; 71045; 74176; 80048; 80053; 80061; 81003; 82378; 82607; 82746; 82962; 82977; 83036; 83605; 83735; 83880; 84100; 84443; 84550; 85025; 86140; 87040; 87081; 87086; 87181; 93005; 96360; 99285; J1815; J8499

== ENCOUNTER 2019-07-09 13:01 | Inpatient (IN) | payer MEDICARE, MEDICAID ==
[~2019-07-09] VITALS: Ht 177.8 cm; Wt 68.9 kg
[~2019-07-09 13:01] MED LIST changes: +BETIMOL5 M2 BOTH EYES; +CEFTRIAXONE1 G2 IV; +LATANOPROST2.5 ML BOTH EYES; +NOVOLOG100 UNIT/4 SQ
--- NOTE | 2019-07-09 13:09 | Emergency Room Report ---
History of Present Illness General Chief Complaint: Generalized Weakness Source: Patient, EMS Present Illness HPI Patient brought from retirement facility for failure to eat or take his medications. He also has abdominal distention. His private physician believes that his potassium is high. His private physician also states that he has volvulus. The patient denies any pain at this time. He says that they do not know how to cook the food and that his pills are bitter. No fevers, chills, sore throat, chest pain, palpitations, nausea, vomiting, diarrhea, dysuria, abdominal pain, shortness of breath, joint pain, rashes, depression, anxiety, visual changes, headache. These responses are questionable as the patient has a history of dementia. January 2019 with these diagnoses: FINAL DIAGNOSES: Proteus UTI Anorexia with failure to thrive, likely due to UTI Protein calorie malnutrition Diabetes mellitus Hypertension Status post pacemaker Dementia Hypothyroidism Anemia of chronic disease Constipation Hypokalemia Dehydration Allergies: Coded Allergies: No Known Allergies (Unverified , 04/22/17) Patient History Limited by: medical condition Past Medical History: see triage record, old chart reviewed Social History: Denies: smoking - Former Social History Narrative Born in [place]. Moved to [place] 1978 Reviewed Nursing Documentation: PMH: Agreed; PSxH: Agreed Nursing Documentation-PMH Hx Cardiac Problems: Yes - HEART FAILURE Hx Hypertension: Yes Hx COPD: No - ANEMIA, HYPOKALEMIA Hx Diabetes: Yes Hx Cancer: No Hx Gastrointestinal Problems: Yes - Gastroparesis Hx Neurological Problems: Yes - Prostatic hyperplasia Hx Cerebrovascular Accident: Yes - R SIDE DEFICIT Hx Transient Ischemic Attacks: Yes Hx Weakness: Yes Review of Systems All Other Systems: limited Physical Exam Vital Signs Date Time Temp Pulse Resp B/P (MAP) Pulse Ox O2 Delivery O2 Flow Rate FiO2 07/09/19 13:05 97.3 68 21 129/82 (98) 100 Room Air Sp02 EP Interpretation: reviewed, normal General Appearance: alert, non-toxic, thin, Chronically Ill Head: normocephalic Eyes: bilateral eye normal inspection, bilateral eye EOMI ENT: dry mucus membranes - Poor dentition Neck: supple Respiratory: lungs clear, normal breath sounds Cardiovascular #1: regular rate, rhythm Cardiovascular #2: 2+ radial (R) Gastrointestinal: normal inspection, non tender, no guarding, no rebound, distended - Markedly Genitourinary: no CVA tenderness Musculoskeletal: back normal, normal range of motion Neurologic: alert, sensory intact, motor weakness - Right-sided, oriented - X2 Psychiatric: mood/affect normal Skin: no rash Medical Decision Making Diagnostic Impression: Primary Impression: Dehydration Additional Impressions: Failure to thrive Qualified Codes: R62.7 - Adult failure to thrive Hypokalemia Elevated troponin Volvulus ER Course Patient presents with refusal to eat or take medication along with abdominal distention. Differential includes small bowel obstruction, failure to thrive, volvulus, impaction, electrolyte imbalance UTI amongst others. Evaluation will be with EKG, chest x-ray, CT the abdomen and pelvis and labs. Treatment with IV hydration. The patient denies pain at this time. He is afebrile and vital signs are stable. Antibiotics are not indicated at this time. EKG paced rate 60. Chest x-ray with dilated loops of large bowel. No free air. Labs with normal white count. Normal hemoglobin and hematocrit were slightly elevated. CMP with potassium of 2.5. Elevated BUN. Troponin 0 0.06. The patient refuses to give urinalysis and refuses catheterization. Potassium runs and potassium given IV. Aspirin given rectally for minimally elevated troponin. Abdomen is still distended but there is no guarding or rebound. CT was pending at the time of admission. The patient was discussed with Dr. Chand. Laboratory Tests Test 07/09/19 13:56 White Blood Count 6.1 K/UL (4.8-10.8) Red Blood Count 4.93 M/UL (4.70-6.10) Hemoglobin 15.1 G/DL (14.2-18.0) Hematocrit 45.3 % (42.0-52.0) Mean Corpuscular Volume 92 FL (80-99) Mean Corpuscular Hemoglobin 30.7 PG (27.0-31.0) Mean Corpuscular Hemoglobin Concent 33.4 G/DL (32.0-36.0) Red Cell Distribution Width 12.4 % (11.6-14.8) Platelet Count 251 K/UL (150-450) Mean Platelet Volume 5.6 FL (6.5-10.1) L Neutrophils (%) (Auto) 74.9 % (45.0-75.0) Lymphocytes (%) (Auto) 18.9 % (20.0-45.0) L Monocytes (%) (Auto) 5.2 % (1.0-10.0) Eosinophils (%) (Auto) 0.1 % (0.0-3.0) Basophils (%) (Auto) 0.9 % (0.0-2.0) Prothrombin Time 10.7 SEC (9.30-11.50) Prothrombin Time INR 1.0 (0.9-1.1) PTT 27 SEC (23-33) Sodium Level 147 MMOL/L (136-145) H Potassium Level 2.5 MMOL/L (3.5-5.1) *L Chloride Level 109 MMOL/L (98-107) H Carbon Dioxide Level 28 MMOL/L (21-32) Anion Gap 9 mmol/L (5-15) Blood Urea Nitrogen 25 mg/dL (7-18) H Creatinine 1.2 MG/DL (0.55-1.30) Estimate Glomerular Filtration Rate mL/min (>60) Glucose Level 97 MG/DL (74-106) Calcium Level 9.0 MG/DL (8.5-10.1) Total Bilirubin 0.4 MG/DL (0.2-1.0) Aspartate Amino Transferase (AST) 21 U/L (15-37) Alanine Aminotransferase (ALT) 27 U/L (12-78) Alkaline Phosphatase 82 U/L (46-116) Total Creatine Kinase 65 U/L (26-308) Troponin I 0.060 ng/mL (0.000-0.056) Total Protein 7.2 G/DL (6.4-8.2) Albumin 3.0 G/DL (3.4-5.0) L Globulin 4.2 g/dL Albumin/Globulin Ratio 0.7 (1.0-2.7) L Lipase 85 U/L (73-393) EKG Diagnostic Results Rate: normal Rhythm: other - paced ST Segments: no acute changes Rhythm Strip Diag. Results EP Interpretation: yes Rhythm: no PVC's, no ectopy, other - paced 60 Chest X-Ray Diagnostic Results Chest X-Ray Diagnostic Results : Chest X-Ray Ordered: Yes # of Views/Limited/Complete: 1 View Indication: Other EP Interpretation: Yes Interpretation: no consolidation, no effusion, no pneumothorax, other - Massively dilated loops of bowel Impression: Other Electronically Signed by: Electronically signed by Aristides Thompson MD CT/MRI/US Diagnostic Results CT/MRI/US Diagnostic Results : Imaging Test Ordered: Abdomen and pelvis Impression * Marked distention of the sigmoid colon up to a abrupt transition in the distal sigmoid where there is swirling in the mesentery concerning for volvulus. Similar to the prior exam no proximal transition point or narrowing is noted, instead there is upstream dilatation of the remainder of the colon. Recommend surgical evaluation and/or colonoscopy. * No evidence of free intraperitoneal air or fluid. * No small bowel obstruction. * Small hiatal hernia with thickening of the distal esophagus suggesting esophagitis. Consider correlation with endoscopy. 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 * Indeterminate right adrenal nodule measuring 1.1 cm, stable compared to the prior exam. * Left renal cysts, largest measures approximately 6.3 cm diameter. * Enlarged and heterogeneous prostate which may be on the basis of BPH. Correlation with prostate exam and PSA however is recommended. * Unusual osseous mineralization with patchy sclerosis, also seen previously and unchanged. This may be on the basis of chronic osteoporotic changes. Consider further evaluation with bone scan. Last Vital Signs Date Time Temp Pulse Resp B/P (MAP) Pulse Ox O2 Delivery O2 Flow Rate FiO2 07/09/19 17:30 97.3 62 21 135/85 100 Room Air Status: improved Disposition: ADMITTED INPATIENT Condition: Serious Aristides Thompson MD Jul 09, 2019 13:09
[2019-07-09 13:10] VITALS: BP 129/82
--- NOTE | 2019-07-09 13:10 | NUR ---
ED Nurse Note: Patient brought in by [facility] from [facility] rehab c/o FTT. at time of arrival patient complains of no pain at this time however has a distended abdomen. patient is alert and oriented x3, able to fully answer questions. patient placed in a field inspector, will continue to monitor
[2019-07-09] MEDS ORDERED: Sodium Chloride 550 ML IV SCH (13:15)
[2019-07-09] MEDS ORDERED: Omnipaque-300 100ml vial INJ PRN (13:15)
--- NOTE | 2019-07-09 13:45 | NUR ---
ED Nurse Note: Patient is unable to fully drink contrast liquid, Dr. Thompson states that its okay, will continue to try
--- NOTE | 2019-07-09 13:50 | NUR ---
ED Nurse Note: Patient refused CRE and VRE swab
--- NOTE | 2019-07-09 14:00 | NUR ---
ED Nurse Note: informed Dr. Thompson about patients inability to provide urine, Dr. thompson states its okay
[2019-07-09 14:06] LABS: BASOPHILS % (AUTO) 0.9 % (0.0-2.0); EOSINOPHILS % (AUTO) 0.1 % (0.0-3.0); HEMATOCRIT 45.3 % (42.0-52.0); HEMOGLOBIN 15.1 G/DL (14.2-18.0); LYMPHOCYTES % (AUTO) 18.9 % (20.0-45.0); MEAN CORPUSCULAR VOLUME 92 FL (80-99); MONOCYTES % (AUTO) 5.2 % (1.0-10.0); NEUTROPHILS % (AUTO) 74.9 % (45.0-75.0); PLATELET COUNT 251 K/UL (150-450); RED BLOOD COUNT 4.93 M/UL (4.70-6.10); RED CELL DISTRIBUTION WIDTH 12.4 % (11.6-14.8); WHITE BLOOD COUNT 6.1 K/UL (4.8-10.8)
[2019-07-09 14:28] LABS: ALANINE AMINOTRANSFERASE 27 U/L (12-78); ALBUMIN/GLOBULIN RATIO 0.7 (1.0-2.7); ALKALINE PHOSPHATASE 82 U/L (46-116); ANION GAP 9 mmol/L (5-15); ASPARTATE AMINO TRANSFERASE 21 U/L (15-37); BILIRUBIN,TOTAL 0.4 MG/DL (0.2-1.0); BLOOD UREA NITROGEN 25 mg/dL (7-18); CARBON DIOXIDE 28 MMOL/L (21-32); CHLORIDE 109 MMOL/L (98-107); CREATINE KINASE 65 U/L (26-308); CREATININE 1.2 MG/DL (0.55-1.30); SODIUM 147 MMOL/L (136-145)
[2019-07-09 14:32] LABS: POTASSIUM 2.5 MMOL/L (3.5-5.1)
[2019-07-09] MEDS ORDERED: D5 1/2NS w/KCl 20mEq 1,000 ML IV SCH (14:45)
--- NOTE | 2019-07-09 14:56 | Diagnostic Imaging Report ---
Indication: Chest pain Technique: XRAY Chest 1v Comparison: 04/20/2018 Findings: Heart size and mediastinal contours are stable. Atherosclerotic calcification is again noted. Left-sided dual-lead pacemaker again noted with its in the region of the left atrium and ventricle. There is no definite focal airspace consolidation, pleural effusion or pneumothorax. Marked distention of colonic loops is again noted, as seen on multiple prior exams. There are degenerative changes in the spine and shoulders. No acute osseous abnormality. Impression: No radiographic evidence of acute cardiopulmonary disease. Prominent colonic loops partially visualized in the upper abdomen. Similar findings have been noted previously. Possibility of a distal colonic obstruction not excluded.
[2019-07-09 15:23] VITALS: BP 135/85
--- NOTE | 2019-07-09 15:45 | NUR ---
ED Nurse Note: Patient has come back from CT
--- NOTE | 2019-07-09 16:00 | NUR ---
ED Nurse Note: had to slow down potassium infusion to 20mL an hour due to patient complaining of pain
--- NOTE | 2019-07-09 16:58 | Diagnostic Imaging Report ---
Indication: Abdominal pain Technique: CT of the abdomen and pelvis utilizing automated exposure control with intravenous contrast. Venous scanning performed. Axial, sagittal and coronal reformats presented. CT dose: Total DLP 785.1 mGycm; CTDI vol 11.4 mGy Comparison: 12/11/2018 Findings: Minimal dependent atelectasis noted in the right lower lobe. Heart appears mildly enlarged. Pacer/AICD leads partially visualized. No pericardial effusion. There is massive distention of the sigmoid colon with more mild upstream distention of the remainder of the colon. The sigmoid colon measures up to 14 cm in AP dimension. Sigmoid is dilated to a clear transition point just to the right of midline in the pelvis where there is abnormal twisting/swirling of the mesentery around the narrow portion of sigmoid colon. As on the prior exam there is no proximal transition point or narrowing. There is no evidence of free intraperitoneal air or fluid. Some contrast is noted within the rectum. Uncertain if this was administered prior to the current study or if this represents residual from a prior contrast administration. There is a small hiatal hernia. There is thickening of the distal esophagus as well which may suggest esophagitis. There is no evidence of small bowel obstruction. There is mass effect on the intra-abdominal organs related to the markedly distended sigmoid colon. Liver, spleen grossly unremarkable. There is an unchanged indeterminate nodule in the lateral limb of the right adrenal gland which measures up to 1.1 cm. Stable in size compared to the prior exam. There is a large cyst in the upper pole left kidney which measures 6.2 cm. Smaller simple appearing cysts also noted in the left. There is no hydronephrosis or urinary tract stone. Pancreas and bladder grossly unremarkable. The prostate is enlarged and heterogeneous. Abdominal aorta is infrarenal abdominal aorta measures up to 3 cm AP with moderate atherosclerotic calcification. There are degenerative changes in the spine and bilateral hips. There is patchy sclerosis in the visualized osseous structures. No acute fracture. IMPRESSION: * Marked distention of the sigmoid colon up to a abrupt transition in the distal sigmoid where there is swirling in the mesentery concerning for volvulus. Similar to the prior exam no proximal transition point or narrowing is noted, instead there is upstream dilatation of the remainder of the colon. Recommend surgical evaluation and/or colonoscopy. * No evidence of free intraperitoneal air or fluid. * No small bowel obstruction. * Small hiatal hernia with thickening of the distal esophagus suggesting esophagitis. Consider correlation with endoscopy. 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 * Indeterminate right adrenal nodule measuring 1.1 cm, stable compared to the prior exam. * Left renal cysts, largest measures approximately 6.3 cm diameter. * Enlarged and heterogeneous prostate which may be on the basis of BPH. Correlation with prostate exam and PSA however is recommended. * Unusual osseous mineralization with patchy sclerosis, also seen previously and unchanged. This may be on the basis of chronic osteoporotic changes. Consider further evaluation with bone scan. The CT scanner at [facility] is accredited by the [employer] and the scans are performed using protocols designed to limit radiation exposure to as low as reasonably achievable to attain images of sufficient resolution adequate for diagnostic evaluation.
--- NOTE | 2019-07-09 17:15 | NUR ---
ED Nurse Note: fredy Calero RN, receiving nurse on telemetry about patients 2nd bag of potassium unable to transfuse due to the slow transfusion rate of first bag, states its okay for patient to go up with it,
--- NOTE | 2019-07-09 17:28 | Cardiac Electrophysiology PN ---
Subjective Subjective [id number] Objective Last 24 Hour Vital Signs Date Time Temp Pulse Resp B/P (MAP) Pulse Ox O2 Delivery O2 Flow Rate FiO2 07/09/19 15:23 97.3 62 21 135/85 100 Room Air 07/09/19 13:10 68 21 Room Air 07/09/19 13:10 97.3 72 21 129/82 100 Room Air 07/09/19 13:05 97.3 68 21 129/82 (98) 100 Room Air Laboratory Tests Test 07/09/19 13:56 White Blood Count 6.1 K/UL (4.8-10.8) Red Blood Count 4.93 M/UL (4.70-6.10) Hemoglobin 15.1 G/DL (14.2-18.0) Hematocrit 45.3 % (42.0-52.0) Mean Corpuscular Volume 92 FL (80-99) Mean Corpuscular Hemoglobin 30.7 PG (27.0-31.0) Mean Corpuscular Hemoglobin Concent 33.4 G/DL (32.0-36.0) Red Cell Distribution Width 12.4 % (11.6-14.8) Platelet Count 251 K/UL (150-450) Mean Platelet Volume 5.6 FL (6.5-10.1) L Neutrophils (%) (Auto) 74.9 % (45.0-75.0) Lymphocytes (%) (Auto) 18.9 % (20.0-45.0) L Monocytes (%) (Auto) 5.2 % (1.0-10.0) Eosinophils (%) (Auto) 0.1 % (0.0-3.0) Basophils (%) (Auto) 0.9 % (0.0-2.0) Prothrombin Time 10.7 SEC (9.30-11.50) Prothromb Time International Ratio 1.0 (0.9-1.1) Activated Partial Thromboplast Time 27 SEC (23-33) Sodium Level 147 MMOL/L (136-145) H Potassium Level 2.5 MMOL/L (3.5-5.1) *L Chloride Level 109 MMOL/L (98-107) H Carbon Dioxide Level 28 MMOL/L (21-32) Anion Gap 9 mmol/L (5-15) Blood Urea Nitrogen 25 mg/dL (7-18) H Creatinine 1.2 MG/DL (0.55-1.30) Estimat Glomerular Filtration Rate mL/min (>60) Glucose Level 97 MG/DL (74-106) Calcium Level 9.0 MG/DL (8.5-10.1) Total Bilirubin 0.4 MG/DL (0.2-1.0) Aspartate Amino Transf (AST/SGOT) 21 U/L (15-37) Alanine Aminotransferase (ALT/SGPT) 27 U/L (12-78) Alkaline Phosphatase 82 U/L (46-116) Total Creatine Kinase 65 U/L (26-308) Troponin I 0.060 ng/mL (0.000-0.056) Total Protein 7.2 G/DL (6.4-8.2) Albumin 3.0 G/DL (3.4-5.0) L Globulin 4.2 g/dL Albumin/Globulin Ratio 0.7 (1.0-2.7) L Lipase 85 U/L (73-393) Cedric Bernard MD Jul 09, 2019 17:28
--- NOTE | 2019-07-09 17:30 | NUR ---
TRANSFER TO FLOOR: Patient transferred to Telemetry as ordered, per Report given to ANA PAULA Calero
--- NOTE | 2019-07-09 17:50 | Consultation ---
History of Present Illness General Date patient seen: Jul 09, 2019 Chief Complaint: Generalized Weakness Present Illness HPI This is a 78-year-old male well-known to me from prior admissions and care who presents with decreased food intake and abdominal distention from care home. In emergency department to find to have abdominal distention and CT scan ordered which identified potential volvulus. Significant colonic distention noted. Surgery called to evaluate and assist with care. Patient seen, patient evaluated, chart reviewed. Of note in reviewing the records patient has had similar findings and CT scans in the past. He has had colonoscopy demonstrating no true volvulus. He has been treated can conservatively in the past and tolerated well. During this admission CT scan similar to prior as well as exam. Labs noted as below. he denies any nausea or emesis. he had a small BM upon admission today. states he is not very hungry Allergies: Coded Allergies: No Known Allergies (Unverified , 04/22/17) Medication History Scheduled Hydralazine Hcl* (Hydralazine Hcl*), 75 MG ORAL EVERY 8 HOURS, (Reported) Latanoprost* (Xalatan*), 1 DROP BOTH EYES BEDTIME, (Reported) Mesalamine (Lialda), 1,600 MG ORAL THREE TIMES A DAY, (Reported) Potassium Chloride (Potassium Chloride), 40 MEQ PO TID, (Reported) Spironolactone* (Aldactone*), 50 MG ORAL EVERY 12 HOURS, (Reported) Timolol (Betimol), 1 DROP BOTH EYES BID, (Reported) Scheduled PRN Acetaminophen* (Acetaminophen 325MG Tablet*), 650 MG ORAL Q6H PRN for Fever/ Headache/Mild Pain, (Reported) Miscellaneous Medications Insulin Aspart (Novolog), SQ, (Reported) Discontinued Medications Ceftriaxone Sodium (Ceftriaxone), 1 GM IV q24hr, (Reported) Discontinued Reason: Therapy completed Patient History Limited by: medical condition History Provided By: Medical Record, PMD Healthcare decision maker Resuscitation status Advanced Directive on File Past Medical/Surgical History Past Medical/Surgical History: (1) Hyperkalemia (2) Heart block AV first degree (3) Heart block AV second degree (4) UTI (urinary tract infection) (5) HTN (hypertension) (6) Diabetes mellitus (7) Constipation (8) Anemia (9) Hypothyroidism (10) Gastroparesis (11) Ileus (12) Dehydration (13) Hypokalemia (14) Failure to thrive Review of Systems Constitutional: Denies: no symptoms, see HPI, chills, sweats, fever, malaise, weakness, other Eye: Denies: no symptoms, see HPI, eye pain, blurred vision, tearing, double vision, nose pain, nose congestion, acuity changes, discharge, other ENT: Denies: no symptoms, see HPI, ear pain, ear discharge, nose pain, nose congestion, throat pain, throat swelling, mouth pain, hearing loss, nasal discharge, other Respiratory: Denies: no symptoms, see HPI, cough, orthopnea, shortness of breath, stridor, wheezing, ROSE, sputum, other Cardiovascular: Denies: no symptoms, see HPI, chest pain, edema, palpitations, syncope, PND, other Gastrointestinal: Denies: no symptoms, see HPI, abdominal pain, constipation, diarrhea, nausea, vomiting, melena, hematemesis, other Genitourinary: Denies: no symptoms, see HPI, discharge, dysuria, frequency, hematuria, pain, retention, incontinence, urgency, vag bleed/dc, other Musculoskeletal: Denies: no symptoms, see HPI, back pain, gout, joint pain, joint swelling, muscle pain, muscle stiffness, other Skin: Denies: no symptoms, see HPI, rash, change in color, change in hair/nails , dryness, lesions, other Psychiatric: Denies: no symptoms, see HPI, prior hx, anxiety, depressed feelings, emotional problems, SI, HI, hallucinations, other Neurological: Denies: no symptoms, see HPI, headache, numbness, paresthesia, seizure, tingling, tremors, focal weakness, syncope, dizziness, other Endocrine: Denies: no symptoms, see HPI, excessive sweating, flushing, intolerance to temperature, increased thirst, increased urine, unexplained weight loss, other Hematologic/Lymphatic: Denies: no symptoms, see HPI, anemia, blood clots, easy bleeding, easy bruising, swollen glands, diathesis, other All Other Systems: negative except mentioned in HPI Physical Exam General Appearance: no apparent distress Lines, tubes and drains: peripheral HEENT: mucous membranes moist Neck: normal inspection Respiratory/Chest: normal breath sounds, no respiratory distress, no accessory muscle use Cardiovascular/Chest: normal rate Abdomen: non tender, soft, no mass, decreased bowel sounds, distended, other - prior midline incision well healed Extremities: no cyanosis, slow capillary refill, other Skin Exam: warm/dry Neurologic: alert Last 24 Hour Vital Signs Date Time Temp Pulse Resp B/P (MAP) Pulse Ox O2 Delivery O2 Flow Rate FiO2 07/09/19 15:23 97.3 62 21 135/85 100 Room Air 07/09/19 13:10 68 21 Room Air 07/09/19 13:10 97.3 72 21 129/82 100 Room Air 07/09/19 13:05 97.3 68 21 129/82 (98) 100 Room Air Laboratory Tests Test 07/09/19 13:56 White Blood Count 6.1 K/UL (4.8-10.8) Red Blood Count 4.93 M/UL (4.70-6.10) Hemoglobin 15.1 G/DL (14.2-18.0) Hematocrit 45.3 % (42.0-52.0) Mean Corpuscular Volume 92 FL (80-99) Mean Corpuscular Hemoglobin 30.7 PG (27.0-31.0) Mean Corpuscular Hemoglobin Concent 33.4 G/DL (32.0-36.0) Red Cell Distribution Width 12.4 % (11.6-14.8) Platelet Count 251 K/UL (150-450) Mean Platelet Volume 5.6 FL (6.5-10.1) L Neutrophils (%) (Auto) 74.9 % (45.0-75.0) Lymphocytes (%) (Auto) 18.9 % (20.0-45.0) L Monocytes (%) (Auto) 5.2 % (1.0-10.0) Eosinophils (%) (Auto) 0.1 % (0.0-3.0) Basophils (%) (Auto) 0.9 % (0.0-2.0) Prothrombin Time 10.7 SEC (9.30-11.50) Prothromb Time International Ratio 1.0 (0.9-1.1) Activated Partial Thromboplast Time 27 SEC (23-33) Sodium Level 147 MMOL/L (136-145) H Potassium Level 2.5 MMOL/L (3.5-5.1) *L Chloride Level 109 MMOL/L (98-107) H Carbon Dioxide Level 28 MMOL/L (21-32) Anion Gap 9 mmol/L (5-15) Blood Urea Nitrogen 25 mg/dL (7-18) H Creatinine 1.2 MG/DL (0.55-1.30) Estimat Glomerular Filtration Rate mL/min (>60) Glucose Level 97 MG/DL (74-106) Calcium Level 9.0 MG/DL (8.5-10.1) Total Bilirubin 0.4 MG/DL (0.2-1.0) Aspartate Amino Transf (AST/SGOT) 21 U/L (15-37) Alanine Aminotransferase (ALT/SGPT) 27 U/L (12-78) Alkaline Phosphatase 82 U/L (46-116) Total Creatine Kinase 65 U/L (26-308) Troponin I 0.060 ng/mL (0.000-0.056) Total Protein 7.2 G/DL (6.4-8.2) Albumin 3.0 G/DL (3.4-5.0) L Globulin 4.2 g/dL Albumin/Globulin Ratio 0.7 (1.0-2.7) L Lipase 85 U/L (73-393) Height (Feet): 5 Height (Inches): 10.00 Weight (Pounds): 160 Medications Current Medications Medications (Trade) Dose Ordered Sig/Kevin Route PRN Reason Start Time Stop Time Status Last Admin Dose Admin Barium Sulfate (Readi-Cat 2) 450 ml NOW PRN ORAL Radiology Procedure 07/09/19 13:15 07/11/19 13:04 Dextrose/ Electrolytes 1,000 ml @ 125 mls/hr Q8H IV 07/09/19 14:45 08/08/19 14:44 07/09/19 14:44 Iohexol (OMNIPAQUE-300 100ml) 100 ml NOW PRN INJ Radiology Procedure 07/09/19 13:15 07/11/19 13:04 Assessment/Plan Problem List: (1) Abdominal distention Assessment & Plan: similar to prior but now patient with more weight loss so distention more prominent soft, no perforation, non tender, but still massively distended discussed with patient at bedside. still having small multiple BM and flatus. no n/v he has functional colonic and bowel problem and not true obstruction discussed consideration for decompression and surgery he states currently he is not considering surgery as an option will follow with recs thank you There is massive distention of the sigmoid colon with more mild upstream distention of the remainder of the colon. The sigmoid colon measures up to 14 cm in AP dimension. Sigmoid is dilated to a clear transition point just to the right of midline in the pelvis where there is abnormal twisting/swirling of the mesentery around the narrow portion of sigmoid colon. As on the prior exam there is no proximal transition point or narrowing. There is no evidence of free intraperitoneal air or fluid. Some contrast is noted within the rectum. Uncertain if this was administered prior to the current study or if this represents residual from a prior contrast administration. There is a small hiatal hernia. There is thickening of the distal esophagus as well which may suggest esophagitis. There is no evidence of small bowel obstruction. There is mass effect on the intra-abdominal organs related to the markedly distended sigmoid colon. Liver, spleen grossly unremarkable. There is an unchanged indeterminate nodule in the lateral limb of the right adrenal gland which measures up to 1.1 cm. Stable in size compared to the prior exam. There is a large cyst in the upper pole left kidney which measures 6.2 cm. Smaller simple appearing cysts also noted in the left. There is no hydronephrosis or urinary tract stone. Pancreas and bladder grossly unremarkable. The prostate is enlarged and heterogeneous. Abdominal aorta is infrarenal abdominal aorta measures up to 3 cm AP with moderate atherosclerotic calcification. There are degenerative changes in the spine and bilateral hips. There is patchy sclerosis in the visualized osseous structures. No acute fracture. IMPRESSION: * Marked distention of the sigmoid colon up to a abrupt transition in the distal sigmoid where there is swirling in the mesentery concerning for volvulus. Similar to the prior exam no proximal transition point or narrowing is noted, instead there is upstream dilatation of the remainder of the colon. Recommend surgical evaluation and/or colonoscopy. * No evidence of free intraperitoneal air or fluid. * No small bowel obstruction. * Small hiatal hernia with thickening of the distal esophagus suggesting esophagitis. Consider correlation with endoscopy. 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 * Indeterminate right adrenal nodule measuring 1.1 cm, stable compared to the prior exam. * Left renal cysts, largest measures approximately 6.3 cm diameter. * Enlarged and heterogeneous prostate which may be on the basis of BPH. Correlation with prostate exam and PSA however is recommended. * Unusual osseous mineralization with patchy sclerosis, also seen previously and unchanged. This may be on the basis of chronic osteoporotic changes. Consider further evaluation with bone scan. ICD Codes: R14.0 - Abdominal distension (gaseous) SNOMED: 08405952 (2) Ileus ICD Codes: K56.7 - Ileus, unspecified SNOMED: 355966226 (3) Gastroparesis ICD Codes: K31.84 - Gastroparesis SNOMED: 097937069 (4) Failure to thrive SNOMED: 91660722 Chava Smith Jul 09, 2019 17:50
--- NOTE | 2019-07-09 18:00 | NUR ---
NURSE NOTES: Patient stable AOx4, VSS, RR even and unlabored on RA. NO s/sx of pain or distress. ABD distended and very large but non tender. Skin intact. No belongings. Will continue to monitor.
--- NOTE | 2019-07-09 18:30 | Consultation ---
DATE OF CONSULTATION: 07/09/2019 CARDIOLOGY CONSULTATION CONSULTING PHYSICIAN: Cedric Bernard M.D. REFERRING PHYSICIAN: Jose Francisco Chand M.D. REASON FOR CONSULTATION: Management of hypertension and evaluation of the patient's pacemaker and preoperative clearance. HISTORY OF PRESENT ILLNESS: The patient is an elderly gentleman with history of hypertension and diabetes and bradycardia, status post [employer] pacemaker implantation at [facility] by me, who was recently in my office for pacemaker followup. The patient was brought in from alf facility for failure to eat or take his medications. The patient has severe abdominal distention. The patient was brought to the emergency room. Cardiology consultation was obtained for further evaluation. At the time of my evaluation, the patient denies any chest pain or palpitation or shortness of breath. The blood pressure is stable. REVIEW OF SYSTEMS: Negative other than what was mentioned in the history of present illness. PAST MEDICAL HISTORY: As mentioned above. FAMILY HISTORY: Noncontributory. SOCIAL HISTORY: He lives in shelter. Does not smoke or drink alcohol. PHYSICAL EXAMINATION: VITAL SIGNS: Blood pressure 135/85, pulse 62, respirations 18, temperature 97.3. HEAD AND NECK: Showed no JVD. LUNGS: Clear. CARDIOVASCULAR: Regular S1 and S2 with no gallop. 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 ABDOMEN: Distended. EXTREMITIES: No pitting edema. LABORATORY AND DIAGNOSTIC DATA: His EKG showed a ventricular paced rhythm. Labs show white count of 6.1, hemoglobin of 15, hematocrit 45, and platelet count is 251. Sodium is 147, potassium 2.5, BUN of 25, creatinine 1.2, and glucose of 97. Troponin is 0.06. ASSESSMENT AND PLAN: 1. Troponin leak. The patient does not have any chest pain. EKG is not helpful. It is ventricularly paced. We will repeat the EKG and get an echocardiogram for further evaluation. We will repeat cardiac enzymes as well. 2. Status post [employer] pacemaker. Interrogation in the office recently showed normal pacemaker function. 3. Severe hypokalemia. Potassium 2.5. We will replace. 4. Hypernatremia. The patient is getting IV fluid. 5. Possible bowel obstruction. CT scan of abdomen and pelvis showed marked distention of the sigmoid colon. No evidence of free intraperitoneal air or fluid. No small bowel obstruction. Further evaluation by Dr. Smith. Thank you very much for allowing me to participate in the care of this patient. Please do not hesitate to contact me for any questions regarding my evaluation. Cedric Bernard M.D. DR: ZI JOB#: [id number] CC:
--- NOTE | 2019-07-09 19:59 | NUR ---
NURSE NOTES: Received report from ANA PAULA Calero. Pt is awake and resting in bed. IV site intact. Bed locked in lowest position, call light within reach. Will continue with plan of care.
[2019-07-09 20:00] VITALS: BP 125/93
[2019-07-09] MEDS: D5 1/2NS 1,000 ML IV SCH (20:00)
[2019-07-09] MEDS ORDERED: Zolpidem 5mg tab ORAL PRN (20:00)
--- NOTE | 2019-07-09 20:17 | NUR ---
HAND-OFF: Report given to Toño. Patient stable.
[2019-07-09] MEDS: Heparin 5000 units/ml inj SUBQ SCH (21:53)
[2019-07-10] VITALS: BP 100/66
--- NOTE | 2019-07-10 01:00 | NUR ---
NURSE NOTES: Patients IV infiltrated. Attempted to insert multiple times with another RN. Vein finder used still unsuccessful. Will follow. Addendum: 07/10/19 at 1750 by Ebony Burgos RN please disregard charting above. wrong time entry.
[2019-07-10 04:00] VITALS: BP 110/70
--- NOTE | 2019-07-10 07:37 | NUR ---
HAND-OFF: Report given to ANA PAULA Beck. Pt stable.
--- NOTE | 2019-07-10 07:47 | NUR ---
NURSE NOTES: Received patient from Arnold Rodriguez. Patient is awake, lying comfortably in bed. Patient denies pain or discomfort at this time. safety precautions in place. bed locked to lowest position. side [id number] up for safety. call garces within patients reach will follow.
[2019-07-10 08:00] VITALS: BP 145/75
[2019-07-10] MEDS: Heparin 5000 units/ml inj SUBQ SCH ×2 (08:22→21:13)
--- NOTE | 2019-07-10 09:33 | NUR ---
RADIOLOGY DEPT., ABDOMEN X-RAY COMPLETED.-P.DYE
--- NOTE | 2019-07-10 09:34 | NUR ---
RADIOLOGY DEPT., CHEST X-RAY PERFORMED ON ADMIT FROM E.D. AFTER CT ABDOMEN & PELVIS SCAN.-P. DYE
--- NOTE | 2019-07-10 10:00 | NUR ---
NURSE NOTES: Patient requesting to eat. stated he is very hungry. Dr. Smith made aware. new order received to start patient on cler liquid diet. will follow.
[2019-07-10 10:28] LABS: BASOPHILS % (AUTO) 0.5 % (0.0-2.0); EOSINOPHILS % (AUTO) 0.1 % (0.0-3.0); HEMATOCRIT 37.3 % (42.0-52.0); HEMOGLOBIN 12.6 G/DL (14.2-18.0); MEAN CORPUSCULAR VOLUME 91 FL (80-99); MONOCYTES % (AUTO) 5.5 % (1.0-10.0); PLATELET COUNT 246 K/UL (150-450); RED BLOOD COUNT 4.07 M/UL (4.70-6.10); RED CELL DISTRIBUTION WIDTH 11.5 % (11.6-14.8); WHITE BLOOD COUNT 6.3 K/UL (4.8-10.8)
--- NOTE | 2019-07-10 10:30 | Surgery Progress Note ---
Surgery Progress Note Subjective Additional Comments Patient seen and examined bedside. No acute events. Comfortable appearing. States he is hungry and wants to eat. No nausea vomiting fever chills. Labs pending. Abdominal exam unchanged Objective Last 24 Hour Vital Signs Date Time Temp Pulse Resp B/P (MAP) Pulse Ox O2 Delivery O2 Flow Rate FiO2 07/10/19 08:00 98.0 60 20 145/75 (98) 100 07/10/19 08:00 60 07/10/19 04:00 97.8 74 16 110/70 (83) 100 07/10/19 04:00 60 07/10/19 00:00 60 07/10/19 00:00 98.0 60 16 100/66 (77) 100 07/09/19 21:00 Room Air 07/09/19 20:04 Room Air 07/09/19 20:00 98.4 60 16 125/93 (104) 100 07/09/19 20:00 60 07/09/19 17:30 97.3 62 21 135/85 100 Room Air 07/09/19 15:23 97.3 62 21 135/85 100 Room Air 07/09/19 13:10 68 21 Room Air 07/09/19 13:10 97.3 72 21 129/82 100 Room Air 07/09/19 13:05 97.3 68 21 129/82 (98) 100 Room Air I&O Intake and Output 07/09/19 07/10/19 19:00 07:00 Output Total 0 ml Balance 0 ml Output Urine Total 0 ml Cardiovascular: RSR Respiratory: clear Abdomen: soft, distended, non-tender, decreased bowel sounds Extremities: no edema, no tenderness, no cyanosis Laboratory Tests Test 07/09/19 13:56 07/10/19 09:50 White Blood Count 6.1 K/UL (4.8-10.8) Pending Red Blood Count 4.93 M/UL (4.70-6.10) Pending Hemoglobin 15.1 G/DL (14.2-18.0) Pending Hematocrit 45.3 % (42.0-52.0) Pending Mean Corpuscular Volume 92 FL (80-99) Pending Mean Corpuscular Hemoglobin 30.7 PG (27.0-31.0) Pending Mean Corpuscular Hemoglobin Concent 33.4 G/DL (32.0-36.0) Pending Red Cell Distribution Width 12.4 % (11.6-14.8) Pending Platelet Count 251 K/UL (150-450) Pending Mean Platelet Volume 5.6 FL (6.5-10.1) L Pending Neutrophils (%) (Auto) 74.9 % (45.0-75.0) Pending Lymphocytes (%) (Auto) 18.9 % (20.0-45.0) L Pending Monocytes (%) (Auto) 5.2 % (1.0-10.0) Pending Eosinophils (%) (Auto) 0.1 % (0.0-3.0) Pending Basophils (%) (Auto) 0.9 % (0.0-2.0) Pending Prothrombin Time 10.7 SEC (9.30-11.50) Prothromb Time International Ratio 1.0 (0.9-1.1) Activated Partial Thromboplast Time 27 SEC (23-33) Sodium Level 147 MMOL/L (136-145) H Pending Potassium Level 2.5 MMOL/L (3.5-5.1) *L Pending Chloride Level 109 MMOL/L (98-107) H Pending Carbon Dioxide Level 28 MMOL/L (21-32) Pending Anion Gap 9 mmol/L (5-15) Blood Urea Nitrogen 25 mg/dL (7-18) H Pending Creatinine 1.2 MG/DL (0.55-1.30) Pending Estimat Glomerular Filtration Rate mL/min (>60) Pending Glucose Level 97 MG/DL (74-106) Pending Calcium Level 9.0 MG/DL (8.5-10.1) Pending Total Bilirubin 0.4 MG/DL (0.2-1.0) Aspartate Amino Transf (AST/SGOT) 21 U/L (15-37) Alanine Aminotransferase (ALT/SGPT) 27 U/L (12-78) Alkaline Phosphatase 82 U/L (46-116) Total Creatine Kinase 65 U/L (26-308) Troponin I 0.060 ng/mL (0.000-0.056) Pending Total Protein 7.2 G/DL (6.4-8.2) Albumin 3.0 G/DL (3.4-5.0) L Globulin 4.2 g/dL Albumin/Globulin Ratio 0.7 (1.0-2.7) L Lipase 85 U/L (73-393) Lactic Acid Level Pending Pro-B-Type Natriuretic Peptide Pending Plan Problems: (1) Abdominal distention Assessment & Plan: similar to prior but now patient with more weight loss so distention more prominent soft, no perforation, non tender, but still massively distended discussed with patient at bedside. still having small multiple BM and flatus. no n/v he has functional colonic and bowel problem and not true obstruction discussed consideration for decompression and surgery he states currently he is not considering surgery as an option Trial oral liquid diet will follow with recs thank you There is massive distention of the sigmoid colon with more mild upstream distention of the remainder of the colon. The sigmoid colon measures up to 14 cm in AP dimension. Sigmoid is dilated to a clear transition point just to the right of midline in the pelvis where there is abnormal twisting/swirling of the mesentery around the narrow portion of sigmoid colon. As on the prior exam there is no proximal transition point or narrowing. There is no evidence of free intraperitoneal air or fluid. Some contrast is noted within the rectum. Uncertain if this was administered prior to the current study or if this represents residual from a prior contrast administration. There is a small hiatal hernia. There is thickening of the distal esophagus as well which may suggest esophagitis. There is no evidence of small bowel obstruction. There is mass effect on the intra-abdominal organs related to the markedly distended sigmoid colon. Liver, spleen grossly unremarkable. There is an unchanged indeterminate nodule in the lateral limb of the right adrenal gland which measures up to 1.1 cm. Stable in size compared to the prior exam. There is a large cyst in the upper pole left kidney which measures 6.2 cm. Smaller simple appearing cysts also noted in the left. There is no hydronephrosis or urinary tract stone. Pancreas and bladder grossly unremarkable. The prostate is enlarged and heterogeneous. Abdominal aorta is infrarenal abdominal aorta measures up to 3 cm AP with moderate atherosclerotic calcification. There are degenerative changes in the spine and bilateral hips. There is patchy sclerosis in the visualized osseous structures. No acute fracture. IMPRESSION: * Marked distention of the sigmoid colon up to a abrupt transition in the distal sigmoid where there is swirling in the mesentery concerning for volvulus. Similar to the prior exam no proximal transition point or narrowing is noted, instead there is upstream dilatation of the remainder of the colon. Recommend surgical evaluation and/or colonoscopy. * No evidence of free intraperitoneal air or fluid. * No small bowel obstruction. * Small hiatal hernia with thickening of the distal esophagus suggesting esophagitis. Consider correlation with endoscopy. 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 * Indeterminate right adrenal nodule measuring 1.1 cm, stable compared to the prior exam. * Left renal cysts, largest measures approximately 6.3 cm diameter. * Enlarged and heterogeneous prostate which may be on the basis of BPH. Correlation with prostate exam and PSA however is recommended. * Unusual osseous mineralization with patchy sclerosis, also seen previously and unchanged. This may be on the basis of chronic osteoporotic changes. Consider further evaluation with bone scan. (2) Ileus (3) Gastroparesis (4) Failure to thrive Chava Smith Jul 10, 2019 10:30
[2019-07-10 10:38] LABS: ANION GAP 9 mmol/L (5-15); BLOOD UREA NITROGEN 19 mg/dL (7-18); CALCIUM 8.3 MG/DL (8.5-10.1); CARBON DIOXIDE 24 MMOL/L (21-32); CHLORIDE 112 MMOL/L (98-107); SODIUM 145 MMOL/L (136-145)
--- NOTE | 2019-07-10 11:11 | Diagnostic Imaging Report ---
EXAM: XR Abdomen, 2 Views CLINICAL HISTORY: ABD DIST TECHNIQUE: Frontal view of the abdomen pelvis. COMPARISON: CT abdomen and pelvis 10 18 19, KUB 3 27 19 FINDINGS: Lower thorax: Cardiac pacemaker. Lungs are clear. Gastrointestinal tract: Markedly dilated bowel loops in the abdomen, markedly dilated sigmoid. Finding suggestive of a sigmoid volvulus. Dilated bowel loops, similar to the prior CT. Organs: Hyperdensity in the urinary bladder consistent with contrast from recent study. Bones joints: Degenerative changes of the spine. IMPRESSION: Markedly dilated bowel loops in the abdomen, markedly dilated sigmoid. Finding suggestive of a sigmoid volvulus. Dilated bowel loops, similar to the prior CT.
[2019-07-10 12:00] VITALS: BP 100/57
--- NOTE | 2019-07-10 12:00 | NUR ---
NURSE NOTES: Dr. Bernard Made aware of elevated trponin level and low potassium. Patient denies chest pain. resting comfortably in bed. VSS. New order received from MD. will follow.
[2019-07-10] MEDS: D5 1/2NS 1,000 ML IV SCH (12:40)
--- NOTE | 2019-07-10 12:50 | Cardiology Report ---
APPROVED REPORT EXAM: Two-dimensional and M-mode echocardiogram with Doppler and color Doppler. INDICATION Chest Pain M-Mode DIMENSIONS IVSd1.3 (0.7-1.1cm)Left Atrium (MM)1.7 (1.6-4.0cm) LVDd3.4 (3.5-5.6cm)Aortic Root3.4 (2.0-3.7cm) PWd1.1 (0.7-1.1cm)Aortic Cusp Exc.1.6 (1.5-2.0cm) IVSs1.1 cm LVDs3.1 (2.5-4.0cm) PWs0.9 cm Technically difficult study due to poor acoustical windows. Normal left ventricular chamber size, systolic function . Left ventricular ejection fraction estimated to be 50%. Study quality precludes accurate assessment of regional wall motion. No evidence of pericardial effusion. Mild left ventricular hypertrophy. All other cardiac chamber sizes are within normal limits. Focal aortic valve sclerosis with adequate cusp excursion. Thickened mitral valve leaflets with normal excursion. Mitral annulus and aortic root calcification. Pulmonic valve not well visualized. Normal tricuspid valve structure. Subcostal views not obtainble. A color flow and spectral Doppler study was performed and revealed: No aortic insufficiency . Mitral diastolic velocities suggest reduced left ventricular relaxation c/w mild LV diastolic dysfunction (Grade I ). Moderate tricuspid regurgitation. Tricuspid systolic velocities suggests peak right ventricular systolic pressure of 13 mmHg.
--- NOTE | 2019-07-10 13:00 | NUR ---
NURSE NOTES: Patients IV infiltrated. Attempted to insert multiple times with another RN. Vein finder used still unsuccessful. Will follow.
--- NOTE | 2019-07-10 13:30 | NUR ---
NURSE NOTES: Call placed to Dr. Bauer re: unable to obratin IV access despite multiple attempts. awaiting callback.
--- NOTE | 2019-07-10 13:45 | NUR ---
NURSE NOTES: Call placed to Dr. Chand re: unable to obtain IV access despite multiple attempts. awaiting callback.
--- NOTE | 2019-07-10 14:00 | NUR ---
NURSE NOTES: spoke with Dr. Singletary. Order received to insert IV on patients lower extremities after Venous duplex is done and the result is negative. will follow.
--- NOTE | 2019-07-10 14:00 | NUR ---
NURSE NOTES: Dr. Bauer on the floor. updated MD patient has no IV access and patient refused the PO potassium. awaiting venous duplex to be done.
--- NOTE | 2019-07-10 14:20 | Cardiac Electrophysiology PN ---
Assessment/Plan Assessment/Plan 1. Troponin leak. The patient does not have any chest pain. EKG is not helpful as is ventricularly paced. Echocardiogram nl EF 2. Status post [employer] pacemaker. Interrogation in the office recently showed normal pacemaker function. 3. Severe hypokalemia. Potassium 2.5. Will replace iv and po 4. Hypernatremia. The patient is getting IV fluid. 5. Possible bowel obstruction. CT scan of abdomen and pelvis showed marked distention of the sigmoid colon. No evidence of free intraperitoneal air or fluid. No small bowel obstruction. Further evaluation by Dr. Smith. WESLEY RN Subjective Subjective No CP or SOB or abdominal pain Objective Last 24 Hour Vital Signs Date Time Temp Pulse Resp B/P (MAP) Pulse Ox O2 Delivery O2 Flow Rate FiO2 07/10/19 08:00 98.0 60 20 145/75 (98) 100 07/10/19 08:00 60 07/10/19 04:00 97.8 74 16 110/70 (83) 100 07/10/19 04:00 60 07/10/19 00:00 60 07/10/19 00:00 98.0 60 16 100/66 (77) 100 07/09/19 21:00 Room Air 07/09/19 20:04 Room Air 07/09/19 20:00 98.4 60 16 125/93 (104) 100 07/09/19 20:00 60 07/09/19 17:30 97.3 62 21 135/85 100 Room Air 07/09/19 15:23 97.3 62 21 135/85 100 Room Air Intake and Output 07/09/19 07/10/19 18:59 06:59 Output Total 0 ml Balance 0 ml Output Urine Total 0 ml Laboratory Tests Test 07/10/19 09:50 White Blood Count 6.3 K/UL (4.8-10.8) Red Blood Count 4.07 M/UL (4.70-6.10) L Hemoglobin 12.6 G/DL (14.2-18.0) L Hematocrit 37.3 % (42.0-52.0) L Mean Corpuscular Volume 91 FL (80-99) Mean Corpuscular Hemoglobin 30.8 PG (27.0-31.0) Mean Corpuscular Hemoglobin Concent 33.7 G/DL (32.0-36.0) Red Cell Distribution Width 11.5 % (11.6-14.8) L Platelet Count 246 K/UL (150-450) Mean Platelet Volume 5.9 FL (6.5-10.1) L Neutrophils (%) (Auto) 79.0 % (45.0-75.0) H Lymphocytes (%) (Auto) 15.0 % (20.0-45.0) L Monocytes (%) (Auto) 5.5 % (1.0-10.0) Eosinophils (%) (Auto) 0.1 % (0.0-3.0) Basophils (%) (Auto) 0.5 % (0.0-2.0) Sodium Level 145 MMOL/L (136-145) Potassium Level 2.0 MMOL/L (3.5-5.1) *L Chloride Level 112 MMOL/L (98-107) H Carbon Dioxide Level 24 MMOL/L (21-32) Anion Gap 9 mmol/L (5-15) Blood Urea Nitrogen 19 mg/dL (7-18) H Creatinine 1.0 MG/DL (0.55-1.30) Estimat Glomerular Filtration Rate mL/min (>60) Glucose Level 95 MG/DL (74-106) Lactic Acid Level 0.40 mmol/L (0.4-2.0) Calcium Level 8.3 MG/DL (8.5-10.1) L Troponin I 0.100 ng/mL (0.000-0.056) Pro-B-Type Natriuretic Peptide 1645 pg/mL (0-125) H Objective HEAD AND NECK: No JVD. LUNGS: Clear. CARDIOVASCULAR: Regular S1 and S2 with no gallop. 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 ABDOMEN: Distended. EXTREMITIES: No pitting edema. Cedric Bernard MD Jul 10, 2019 14:20
--- NOTE | 2019-07-10 15:40 | NUR ---
NURSE NOTES: Kaley duplex done and resulted. negative for DVT on B/L lower extremities. 20 gauge IV inserted on right lower extremity. started potassium right away. will follow.
[2019-07-10 16:00] VITALS: BP 158/74
--- NOTE | 2019-07-10 16:25 | Diagnostic Imaging Report ---
EXAM: US Duplex Bilateral Lower Extremities Veins CLINICAL HISTORY: SWELL TECHNIQUE: Real-time duplex ultrasound scan of the bilateral lower extremity veins integrating B-mode two-dimensional vascular structure, Doppler spectral analysis, color flow Doppler imaging and compression. COMPARISON: No relevant prior studies available. FINDINGS: Right deep veins: Unremarkable. No DVT in the right common femoral, femoral, proximal deep femoral or popliteal veins. The veins demonstrate normal color flow, are normally compressible, with normal phasic flow and or augmentation response. Right superficial veins: Unremarkable. No thrombus in the visualized right great saphenous vein. Left deep veins: Unremarkable. No DVT in the left common femoral, femoral, proximal deep femoral or popliteal veins. The veins demonstrate normal color flow, are normally compressible, with normal phasic flow and or augmentation response. Left superficial veins: Unremarkable. No thrombus in the visualized left great saphenous vein. Soft tissues: No acute findings. No popliteal cyst. IMPRESSION: Normal bilateral lower extremity duplex venous ultrasound. Limited evaluation of the calf veins.
--- NOTE | 2019-07-10 16:28 | General Progress Note ---
Assessment/Plan Assessment/Plan: GI CONSULT - Dictated - 30 Welsh colonic decompression tube maneuvered into sigmoid colon with decompression of distended abdomen Thank you Naresh Sher MD Subjective Allergies: Coded Allergies: No Known Allergies (Unverified , 04/22/17) Objective Last 24 Hour Vital Signs Date Time Temp Pulse Resp B/P (MAP) Pulse Ox O2 Delivery O2 Flow Rate FiO2 07/10/19 12:00 98.6 65 20 100/57 (71) 100 07/10/19 12:00 60 07/10/19 09:00 Room Air 07/10/19 08:00 98.0 60 20 145/75 (98) 100 07/10/19 08:00 60 07/10/19 04:00 97.8 74 16 110/70 (83) 100 07/10/19 04:00 60 07/10/19 00:00 60 07/10/19 00:00 98.0 60 16 100/66 (77) 100 07/09/19 21:00 Room Air 07/09/19 20:04 Room Air 07/09/19 20:00 98.4 60 16 125/93 (104) 100 07/09/19 20:00 60 07/09/19 17:30 97.3 62 21 135/85 100 Room Air Intake and Output 07/09/19 07/10/19 19:00 07:00 Output Total 0 ml Balance 0 ml Output Urine Total 0 ml Laboratory Tests 07/10/19 09:50: White Blood Count 6.3, Red Blood Count 4.07L, Hemoglobin 12.6L, Hematocrit 37.3L , Mean Corpuscular Volume 91, Mean Corpuscular Hemoglobin 30.8, Mean Corpuscular Hemoglobin Concent 33.7, Red Cell Distribution Width 11.5L, Platelet Count 246, Mean Platelet Volume 5.9L, Neutrophils (%) (Auto) 79.0H, Lymphocytes (%) (Auto) 15.0L, Monocytes (%) (Auto) 5.5, Eosinophils (%) (Auto) 0.1, Basophils (%) (Auto) 0.5, Sodium Level 145, Potassium Level 2.0*L, Chloride Level 112H, Carbon Dioxide Level 24, Anion Gap 9, Blood Urea Nitrogen 19H, Creatinine 1.0, Estimat Glomerular Filtration Rate , Glucose Level 95, Lactic Acid Level 0.40, Calcium Level 8.3L, Troponin I 0.100H, Pro-B-Type Natriuretic Peptide 1645H Height (Feet): 5 Height (Inches): 10.00 Weight (Pounds): 160 Naresh Sher MD Jul 10, 2019 16:28
--- NOTE | 2019-07-10 16:30 | NUR ---
NURSE NOTES: Dr. Sher on the floor. seen and examine patient. Assisted MD to insert rectal catheter/ depression. Rectal catheter in place. secured by tape. will follow.
--- NOTE | 2019-07-10 16:42 | Consultation ---
Consult Note Consult Note asked to eval for electrolyte imbalance ER: Patient brought from assisted facility for failure to eat or take his medications. He also has abdominal distention. His private physician believes that his potassium is high. His private physician also states that he has volvulus. The patient denies any pain at this time. He says that they do not know how to cook the food and that his pills are bitter. No fevers, chills, sore throat, chest pain, palpitations, nausea, vomiting, diarrhea, dysuria, abdominal pain, shortness of breath, joint pain, rashes, depression, anxiety, visual changes, headache. These responses are questionable as the patient has a history of dementia. January 2019 with these diagnoses: FINAL DIAGNOSES: Proteus UTI Anorexia with failure to thrive, likely due to UTI Protein calorie malnutrition Diabetes mellitus Hypertension Status post pacemaker Dementia Hypothyroidism Anemia of chronic disease Constipation Hypokalemia Dehydration Assessment/Plan HypoKalemia Severe UTI HTN Ileus FFT troponin Leak Pacemaker K supplement IV and PO No IV line at this time- he refuses PO ?Aldactone ? resume Asacol monitor lytes per orders Herve Marshall MD Jul 10, 2019 16:42
--- NOTE | 2019-07-10 19:42 | NUR ---
HAND-OFF: Report given to Arnold Mclain. Patient stable, Rn aware needed to give one more bag of potassium tonight. Plan of care nedorsed. will follow.
--- NOTE | 2019-07-10 19:43 | NUR ---
NURSE NOTES: Got report from Ebony GOSS. Pt in stable condition. Denies any pain. No s/s of distress or discomfort noted. Pt resting in bed comfortably. Bed in low and locked position, call light within reach bedside table within reach. Continue to monitor.
--- NOTE | 2019-07-10 19:46 | History & Physical ---
History and Physical History & Physicial IM History and Physical Chief Complaint: Generalized Weakness Source: Patient, EMS Covering Dr. Trinidad DOS 07/10/19 ID [id number] y old male Patient brought from intermediate facility for failure to eat or take his medications. He also has abdominal distention. His private physician believes that his potassium is high. His private physician also states that he has volvulus. The patient denies any pain at this time. He says that they do not know how to cook the food and that his pills are bitter. No fevers, chills, sore throat, chest pain, palpitations, nausea, vomiting, diarrhea, dysuria, abdominal pain, shortness of breath, joint pain, rashes, depression, anxiety, visual changes, headache. These responses are questionable as the patient has a history of dementia. Prior colo egd did not show volvulus. Here for abd distension, abd pain, now improved January 2019 with these diagnoses: FINAL DIAGNOSES: Proteus UTI Anorexia with failure to thrive, likely due to UTI Protein calorie malnutrition Diabetes mellitus Hypertension Status post pacemaker Dementia Hypothyroidism Anemia of chronic disease Constipation Hypokalemia Dehydration Allergies: Coded Allergies: No Known Allergies (Unverified , 04/22/17) Patient History Limited by: medical condition Past Medical History: see triage record, old chart reviewed Social History: Denies: smoking - Former Social History Narrative Born in [place]. Moved to [place] 1978 Reviewed Nursing Documentation: PMH: Agreed; PSxH: Agreed Nursing Documentation-PMH Hx Cardiac Problems: Yes - HEART FAILURE Hx Hypertension: Yes Hx COPD: No - ANEMIA, HYPOKALEMIA Hx Diabetes: Yes Hx Cancer: No Hx Gastrointestinal Problems: Yes - Gastroparesis Hx Neurological Problems: Yes - Prostatic hyperplasia Hx Cerebrovascular Accident: Yes - R SIDE DEFICIT Hx Transient Ischemic Attacks: Yes Hx Weakness: Yes Review of Systems All Other Systems: limited PE General: alert, non-toxic, thin, Chronically Ill HEENT: poor dentition Resp: lungs clear, normal breath sounds CV: regular rate, rhythm GI: normal inspection, non tender, no guarding, no rebound, distended+ : no CVA tenderness Labs: noted Imaging: noted Assessment and Recs: # Abdominal pain r/o volvulus, has been evaluated by surg and gi in the past, egd/colo completed as well --> rectal tube to be inserted as per gi --> trial po intake --> as per gi and surg recs # Failure to thrive (FTT) - decreased bmi and low protein, protein decreased, decreased po intake --> cea is 7.1, as per gi eval --> will also obtain q3d caloric counts --> may consider mirtazapine as appetite stimulant --> GI consult has ordered, appreciate recs --> may need a gtube # Anemia of chronic disease due to underlying chronic medical issues, multifactorial --> Anemia workup has been ordered, rule out gi bleed --> No evidence of hemolysis is noted, peripheral smear has been reviewed. --> Hgb goal >7. Transfuse prn. --> Epogen or iron at this time is not particularly indicated --> Medications have been reviewed # Episode of generalized weakness --> cea is 7.1, as per gi team --> ivf have been started # Encephalopathy --> neuro eval as needed # Dehydration --> per renal # [employer] Pacemaker - as per cards # Troponin leak # Dvt ppx with heparin sq Sterling Singletary MD Jul 10, 2019 19:46
[2019-07-10 20:00] VITALS: BP 105/69
[2019-07-10] MEDS ORDERED: ACETAMINOPHEN500 M3 ORAL (21:37)
[2019-07-11] VITALS: BP 147/94
--- NOTE | 2019-07-11 02:30 | Consultation ---
DATE OF CONSULTATION: 07/10/2019 GASTROENTEROLOGY CONSULTATION REPORT CHIEF COMPLAINT: I was asked to see this patient by Dr. Jose Francisco Chand for evaluation of a distended abdomen. HISTORY OF PRESENT ILLNESS: The patient is an elderly man, who is bed-bound and debilitated, is brought into the hospital for evaluation and care. The patient has a distended stomach, but denies any abdominal pain. The patient's states that distention appears to be new, although she is not sure of the exact duration. She states that his oral intake has been diminished with this and he lives in a half-way. The patient had a CT scan in the emergency room. The patient appears to have a sigmoid type volvulus. He is on a clear liquid diet. The patient does have a history of dementia and therefore his history is somewhat limited. PAST MEDICAL HISTORY: History of anorexia, malnutrition, diabetes, hypertension, status post pacemaker, dementia, hypothyroidism, anemia, constipation, and hyperkalemia. ALLERGIES: None. FAMILY HISTORY: Noncontributory. SOCIAL HISTORY: The patient is and lives in a half-way. REVIEW OF SYSTEMS: Otherwise negative. PHYSICAL EXAMINATION: GENERAL: This is an elderly man, seen in his room with the nurse at bedside. HEENT: Normocephalic and atraumatic. Sclerae anicteric. Oropharynx is clear. Dentition is poor. NECK: Supple. CHEST: Clear to auscultation. CARDIOVASCULAR: Reveals a massively distended stomach, which was soft and nontender. EXTREMITIES: No edema. LABORATORY DATA: Noted. The patient's creatinine is 3.0 and he has been seen by Nephrology for this assessment. This patient has dysmotility syndrome, which appears to have resulted in massively distended abdomen. He does not have tenderness that would suggest surgical emergency. At bedside with the assistance of the nurse, I placed a 30-Irish soft Alfred catheter and maneuvered it into the sigmoid colon and this resulted in a prompt release of the entire abdominal gas, so that the abdomen was soft. The catheter was taped to the patient's buttocks. There was some minor amount of liquid stool seen. The patient felt well at the end of the examination. Catheter was left to gravitational drainage and flushed every 6 hours. I would defer the management to the surgical staff with respect to surgical versus non-operative management of the volvulus finding. RECOMMENDATIONS: 1. Oral intake as tolerated. 2. Flush rectal tube. 3. Follow examination. 4. Surgical followup. Thank you for asking me to participate in the care of this patient. Horacioorlando Flex Sher DR: ABIGAIL JOB#: [id number] CC: MARKUS
[2019-07-11 04:00] VITALS: BP 148/71
[2019-07-11] MEDS: D5 1/2NS 1,000 ML IV SCH (04:52)
--- NOTE | 2019-07-11 07:00 | NUR ---
HAND-OFF: Report given to Ebony GOSS. endorsed plan of care.
--- NOTE | 2019-07-11 07:30 | NUR ---
NURSE NOTES: Received report from ANA PAULA Mclain. Patient is awake , sleeping comfortably at bedside. Fall precautions in place. Side rails X3 up for safety. Bed locked to lowest position. Call garces within patients reach. Denies pain or discomfort. Will anticipate needs monitor patient this throughout this shift.
[2019-07-11 07:48] LABS: BASOPHILS % (AUTO) 0.5 % (0.0-2.0); EOSINOPHILS % (AUTO) 0.2 % (0.0-3.0); HEMATOCRIT 36.5 % (42.0-52.0); HEMOGLOBIN 12.7 G/DL (14.2-18.0); LYMPHOCYTES % (AUTO) 14.9 % (20.0-45.0); MEAN CORPUSCULAR VOLUME 91 FL (80-99); MONOCYTES % (AUTO) 6.1 % (1.0-10.0); NEUTROPHILS % (AUTO) 78.2 % (45.0-75.0); PLATELET COUNT 185 K/UL (150-450); RED BLOOD COUNT 4.03 M/UL (4.70-6.10); RED CELL DISTRIBUTION WIDTH 10.8 % (11.6-14.8); WHITE BLOOD COUNT 7.2 K/UL (4.8-10.8)
[2019-07-11 08:00] VITALS: BP 127/62
--- NOTE | 2019-07-11 08:10 | NUR ---
NURSE NOTES: call out to Dr. Marshall regarding critical lab result of potassium level 2. Awaiting doctors call back .will follow.
[2019-07-11 08:24] LABS: ALANINE AMINOTRANSFERASE 18 U/L (12-78); ALBUMIN 2.2 G/DL (3.4-5.0); ALBUMIN/GLOBULIN RATIO 0.6 (1.0-2.7); ALKALINE PHOSPHATASE 65 U/L (46-116); ANION GAP 12 mmol/L (5-15); ASPARTATE AMINO TRANSFERASE 19 U/L (15-37); BILIRUBIN,TOTAL 0.3 MG/DL (0.2-1.0); BLOOD UREA NITROGEN 15 mg/dL (7-18); CALCIUM 7.7 MG/DL (8.5-10.1); CARBON DIOXIDE 22 MMOL/L (21-32); CHLORIDE 113 MMOL/L (98-107); PHOSPHORUS 2.5 MG/DL (2.5-4.9); SODIUM 147 MMOL/L (136-145)
[2019-07-11] MEDS: Heparin 5000 units/ml inj SUBQ SCH ×2 (09:30→21:07)
--- NOTE | 2019-07-11 09:51 | General Progress Note ---
Assessment/Plan Assessment/Plan: Assessment and Recs: # Abdominal pain r/o volvulus, has been evaluated by surg and gi in the past, egd/colo completed as well in past --> rectal tube inserted as per gi --> trial po intake --> as per gi and surg recs # Failure to thrive (FTT) - decreased bmi and low protein, protein decreased, decreased po intake --> cea is 7.1, as per gi eval --> will also obtain q3d caloric counts --> may consider mirtazapine as appetite stimulant --> GI consult has ordered, appreciate recs --> may need a gtube # Anemia of chronic disease due to underlying chronic medical issues, multifactorial --> Anemia workup has been ordered, rule out gi bleed --> No evidence of hemolysis is noted, peripheral smear has been reviewed. --> Hgb goal >7. Transfuse prn. --> Epogen or iron at this time is not particularly indicated --> Medications have been reviewed # Episode of generalized weakness --> cea is 7.1, as per gi team --> ivf have been started # Encephalopathy --> neuro eval as needed # Dehydration --> per renal # [employer] Pacemaker - as per cards # Troponin leak # Dvt ppx with heparin sq Subjective Constitutional: Denies: no symptoms, chills, diaphoresis, fever, malaise, weakness, other HEENT: Denies: no symptoms, eye pain, blurred vision, tearing, double vision, ear pain, ear discharge, nose pain, nose congestion, throat pain, throat swelling, mouth pain, mouth swelling, other Respiratory: Denies: no symptoms, cough, orthopnea, shortness of breath, SOB with excertion, SOB at rest, sputum, stridor, wheezing, other Neurologic/Psychiatric: Denies: no symptoms, anxiety, depressed, emotional problems, headache, numbness, paresthesia, pre-existing deficit, seizure, tingling, tremors, weakness, other Endocrine: Denies: no symptoms, excessive sweating, flushing, intolerance to cold, intolerance to heat, increased hunger, increased thirst, increased urine, unexplained weight gain, unexplained weight loss, other Allergies: Coded Allergies: No Known Allergies (Unverified , 04/22/17) Subjective 07/11: no events, no bleeding, rectal tube flused, dw Rn Objective Last 24 Hour Vital Signs Date Time Temp Pulse Resp B/P (MAP) Pulse Ox O2 Delivery O2 Flow Rate FiO2 07/11/19 08:00 97.5 60 18 127/62 (83) 100 07/11/19 04:00 98.2 62 18 148/71 (96) 100 07/11/19 04:00 62 07/11/19 00:00 60 07/11/19 00:00 97.8 64 20 147/94 (111) 100 07/10/19 21:00 Room Air 07/10/19 20:00 98.3 61 18 105/69 (81) 100 07/10/19 20:00 70 07/10/19 16:00 97.3 66 20 158/74 (102) 100 07/10/19 16:00 63 07/10/19 12:00 98.6 65 20 100/57 (71) 100 07/10/19 12:00 60 Intake and Output 07/10/19 07/11/19 19:00 07:00 Intake Total 140 ml 12 ml Balance 140 ml 12 ml Intake Oral 140 ml 12 ml # Voids 2 Laboratory Tests 07/11/19 05:48: White Blood Count 7.2, Red Blood Count 4.03L, Hemoglobin 12.7L, Hematocrit 36.5L , Mean Corpuscular Volume 91, Mean Corpuscular Hemoglobin 31.6H, Mean Corpuscular Hemoglobin Concent 34.9, Red Cell Distribution Width 10.8L, Platelet Count 185, Mean Platelet Volume 5.7L, Neutrophils (%) (Auto) 78.2H, Lymphocytes (%) (Auto) 14.9L, Monocytes (%) (Auto) 6.1, Eosinophils (%) (Auto) 0.2, Basophils (%) (Auto) 0.5, Sodium Level 147H, Potassium Level 2.0*L, Chloride Level 113H, Carbon Dioxide Level 22, Anion Gap 12, Blood Urea Nitrogen 15, Creatinine 1.0, Estimat Glomerular Filtration Rate , Glucose Level 82, Calcium Level 7.7L, Phosphorus Level 2.5, Magnesium Level 1.9, Total Bilirubin 0.3, Aspartate Amino Transf (AST/SGOT) 19, Alanine Aminotransferase (ALT/SGPT) 18, Alkaline Phosphatase 65, Troponin I 0.082H, C-Reactive Protein, Quantitative < 0.4, Pro-B-Type Natriuretic Peptide 2650H, Total Protein 5.6L, Albumin 2.2L, Globulin 3.4, Albumin/Globulin Ratio 0.6L Height (Feet): 5 Height (Inches): 10.00 Weight (Pounds): 160 Objective PE General: alert, non-toxic, thin, Chronically Ill HEENT: poor dentition Resp: lungs clear, normal breath sounds CV: regular rate, rhythm GI: normal inspection, non tender, no guarding, no rebound, distended+ : no CVA tenderness ++ rectal tube Sterling Singletary MD Jul 11, 2019 09:51
[2019-07-11 10:23] LABS: APPEARANCE,URINE CLEAR; BILIRUBIN, URINE NEGATIVE (NEGATIVE); COLOR,URINE PALE YELLOW; GLUCOSE, URINE (UA) NEGATIVE (NEGATIVE); KETONES,URINE NEGATIVE (NEGATIVE); LEUKOCYTE ESTERASE ,URINE 3+ (NEGATIVE); NITRITE,URINE NEGATIVE (NEGATIVE); PH,URINE 5 (4.5-8.0); PROTEIN,URINE 1+ (NEGATIVE); UROBILINOGEN,URINE NORMAL MG/DL (0.0-1.0)
--- NOTE | 2019-07-11 10:30 | NUR ---
NURSE NOTES: Dr. mcarthur in to see the patient. update given to MD. new order received. noted and carried out. will follow.
--- NOTE | 2019-07-11 10:45 | NUR ---
NURSE NOTES: Patient to receive 100Meq (10 Bags) of potassium Iv for potassium level of 2. Dr. Marshall aware patient has peripheral access on right lower extremity. will follow.
--- NOTE | 2019-07-11 11:31 | Nephrology Progress Note ---
Assessment/Plan Problem List: (1) Hypokalemia (2) Dehydration (3) Failure to thrive (4) Elevated troponin (5) Abdominal distention Assessment HypoKalemia Severe UTI HTN Ileus FFT troponin Leak Pacemaker Plan K supplement IV and PO resume Aldactone resume Asacol monitor lytes per orders check TSH Subjective ROS Limited/Unobtainable: No Constitutional: Reports: malaise, weakness Objective Objective Last 24 Hour Vital Signs Date Time Temp Pulse Resp B/P (MAP) Pulse Ox O2 Delivery O2 Flow Rate FiO2 07/11/19 09:00 Room Air 07/11/19 08:00 97.5 60 18 127/62 (83) 100 07/11/19 08:00 60 07/11/19 04:00 98.2 62 18 148/71 (96) 100 07/11/19 04:00 62 07/11/19 00:00 60 07/11/19 00:00 97.8 64 20 147/94 (111) 100 07/10/19 21:00 Room Air 07/10/19 20:00 98.3 61 18 105/69 (81) 100 07/10/19 20:00 70 07/10/19 16:00 97.3 66 20 158/74 (102) 100 07/10/19 16:00 63 07/10/19 12:00 98.6 65 20 100/57 (71) 100 07/10/19 12:00 60 Intake and Output 07/10/19 07/11/19 19:00 07:00 Intake Total 140 ml 12 ml Balance 140 ml 12 ml Intake Oral 140 ml 12 ml # Voids 2 Laboratory Tests 07/11/19 05:48: White Blood Count 7.2, Red Blood Count 4.03L, Hemoglobin 12.7L, Hematocrit 36.5L , Mean Corpuscular Volume 91, Mean Corpuscular Hemoglobin 31.6H, Mean Corpuscular Hemoglobin Concent 34.9, Red Cell Distribution Width 10.8L, Platelet Count 185, Mean Platelet Volume 5.7L, Neutrophils (%) (Auto) 78.2H, Lymphocytes (%) (Auto) 14.9L, Monocytes (%) (Auto) 6.1, Eosinophils (%) (Auto) 0.2, Basophils (%) (Auto) 0.5, Sodium Level 147H, Potassium Level 2.0*L, Chloride Level 113H, Carbon Dioxide Level 22, Anion Gap 12, Blood Urea Nitrogen 15, Creatinine 1.0, Estimat Glomerular Filtration Rate , Glucose Level 82, Calcium Level 7.7L, Phosphorus Level 2.5, Magnesium Level 1.9, Total Bilirubin 0.3, Aspartate Amino Transf (AST/SGOT) 19, Alanine Aminotransferase (ALT/SGPT) 18, Alkaline Phosphatase 65, Troponin I 0.082H, C-Reactive Protein, Quantitative < 0.4, Pro-B-Type Natriuretic Peptide 2650H, Total Protein 5.6L, Albumin 2.2L, Globulin 3.4, Albumin/Globulin Ratio 0.6L 07/11/19 10:00: Urine Color Pale yellow, Urine Appearance Clear, Urine pH 5, Urine Specific [place] 1.015, Urine Protein 1+H, Urine Glucose (UA) Negative, Urine Ketones Negative, Urine Blood 1+H, Urine Nitrite Negative, Urine Bilirubin Negative, Urine Urobilinogen Normal, Urine Leukocyte Esterase 3+H, Urine RBC 0-2H, Urine WBC 5-10H, Urine Squamous Epithelial Cells Occasional, Urine Bacteria Occasional , Urine Yeast FewH Height (Feet): 5 Height (Inches): 10.00 Weight (Pounds): 160 General Appearance: no apparent distress, lethargic Cardiovascular: normal rate Respiratory/Chest: decreased breath sounds Abdomen: distended Herve Marshall MD Jul 11, 2019 11:31
[2019-07-11 12:00] VITALS: BP 109/65
[2019-07-11] MEDS: Spironolactone 25mg tab ORAL SCH ×2 (12:27→21:05)
--- NOTE | 2019-07-11 12:43 | NUR ---
RD ASSESSMENT & RECOMMENDATIONS SEE CARE ACTIVITY FOR COMPLETE ASSESSMENT DAILY ESTIMATED NEEDS: Needs based on Underweight, wound/ 64kg 30-35 kcals/kg 4037-6282 total kcals 1.25-1.5 g protein/kg 80-96 g total protein 25-30 mL/kg 1761-0103 total fluid mLs NUTRITION DIAGNOSIS: *Increased kcal and protein needs r/t underweight status, wound healing, as evidenced by BMI underweight per guidelines, 82% [place] Body Weight, open sacral wound, eval pending. CURRENT DIET:CLD PO DIET RECOMMENDATIONS: Advance as able, Soft diet/ texture per [employer] ADDITIONAL RECOMMENDATIONS: * Calibrated bedscale wt for accurate CBW EMR wt: 160# vs Bed wt: 141# * [employer] eval for appropriate texture * Add ENSURE CLEAR w/ CLD * Add Ensure Enlive w/ advanced diet/ monitor po intake * F/up w/ WC eval: add VALERY BID if tolerated * Daily monitoring of hydration status/ lytes (elev Na/ low K)
[2019-07-11] MEDS: Mesalamine 400mg cap ORAL SCH ×2 (12:52→18:00)
--- NOTE | 2019-07-11 14:54 | Cardiac Electrophysiology PN ---
Assessment/Plan Assessment/Plan 1. Troponin leak. Denies any chest pain or SOB. EKG is not helpful as is ventricularly paced. Echocardiogram nl EF 2. Status post [employer] pacemaker. Interrogation in the office recently showed normal pacemaker function. 3. Severe hypokalemia. Potassium 2.5. Will replace iv again 4. Hypernatremia. The patient is getting IV fluid. 5. Possible bowel obstruction. CT scan of abdomen and pelvis showed marked distention of the sigmoid colon. No evidence of free intraperitoneal air or fluid. No small bowel obstruction. Further evaluation by Dr. Smith. WESLEY RN Subjective Subjective No CP or SOB or abdominal pain. Has rectal tube in that is draining the feces Objective Last 24 Hour Vital Signs Date Time Temp Pulse Resp B/P (MAP) Pulse Ox O2 Delivery O2 Flow Rate FiO2 07/11/19 12:10 97.5 07/11/19 12:00 96.7 60 20 109/65 (80) 100 07/11/19 12:00 60 07/11/19 09:00 Room Air 07/11/19 08:00 97.5 60 18 127/62 (83) 100 07/11/19 08:00 60 07/11/19 04:00 98.2 62 18 148/71 (96) 100 07/11/19 04:00 62 07/11/19 00:00 60 07/11/19 00:00 97.8 64 20 147/94 (111) 100 07/10/19 21:00 Room Air 07/10/19 20:00 98.3 61 18 105/69 (81) 100 07/10/19 20:00 70 07/10/19 16:00 97.3 66 20 158/74 (102) 100 07/10/19 16:00 63 Intake and Output 07/10/19 07/11/19 19:00 07:00 Intake Total 140 ml 12 ml Balance 140 ml 12 ml Intake Oral 140 ml 12 ml # Voids 2 Laboratory Tests Test 07/11/19 05:48 07/11/19 10:00 White Blood Count 7.2 K/UL (4.8-10.8) Red Blood Count 4.03 M/UL (4.70-6.10) L Hemoglobin 12.7 G/DL (14.2-18.0) L Hematocrit 36.5 % (42.0-52.0) L Mean Corpuscular Volume 91 FL (80-99) Mean Corpuscular Hemoglobin 31.6 PG (27.0-31.0) H Mean Corpuscular Hemoglobin Concent 34.9 G/DL (32.0-36.0) Red Cell Distribution Width 10.8 % (11.6-14.8) L Platelet Count 185 K/UL (150-450) Mean Platelet Volume 5.7 FL (6.5-10.1) L Neutrophils (%) (Auto) 78.2 % (45.0-75.0) H Lymphocytes (%) (Auto) 14.9 % (20.0-45.0) L Monocytes (%) (Auto) 6.1 % (1.0-10.0) Eosinophils (%) (Auto) 0.2 % (0.0-3.0) Basophils (%) (Auto) 0.5 % (0.0-2.0) Sodium Level 147 MMOL/L (136-145) H Potassium Level 2.0 MMOL/L (3.5-5.1) *L Chloride Level 113 MMOL/L (98-107) H Carbon Dioxide Level 22 MMOL/L (21-32) Anion Gap 12 mmol/L (5-15) Blood Urea Nitrogen 15 mg/dL (7-18) Creatinine 1.0 MG/DL (0.55-1.30) Estimat Glomerular Filtration Rate mL/min (>60) Glucose Level 82 MG/DL (74-106) Calcium Level 7.7 MG/DL (8.5-10.1) L Phosphorus Level 2.5 MG/DL (2.5-4.9) Magnesium Level 1.9 MG/DL (1.8-2.4) Total Bilirubin 0.3 MG/DL (0.2-1.0) Aspartate Amino Transf (AST/SGOT) 19 U/L (15-37) Alanine Aminotransferase (ALT/SGPT) 18 U/L (12-78) Alkaline Phosphatase 65 U/L (46-116) Troponin I 0.082 ng/mL (0.000-0.056) C-Reactive Protein, Quantitative < 0.4 mg/dL (0.00-0.90) Pro-B-Type Natriuretic Peptide 2650 pg/mL (0-125) H Total Protein 5.6 G/DL (6.4-8.2) L Albumin 2.2 G/DL (3.4-5.0) L Globulin 3.4 g/dL Albumin/Globulin Ratio 0.6 (1.0-2.7) L Urine Color Pale yellow Urine Appearance Clear Urine pH 5 (4.5-8.0) Urine Specific [place] 1.015 (1.005-1.035) Urine Protein 1+ (NEGATIVE) H Urine Glucose (UA) Negative (NEGATIVE) Urine Ketones Negative (NEGATIVE) Urine Blood 1+ (NEGATIVE) H Urine Nitrite Negative (NEGATIVE) Urine Bilirubin Negative (NEGATIVE) Urine Urobilinogen Normal MG/DL (0.0-1.0) Urine Leukocyte Esterase 3+ (NEGATIVE) H Urine RBC 0-2 /HPF (0 - 0) H Urine WBC 5-10 /HPF (0 - 0) H Urine Squamous Epithelial Cells Occasional /LPF Urine Bacteria Occasional /HPF (NONE) Urine Yeast Few /HPF (NONE) H Objective HEAD AND NECK: No JVD. LUNGS: Clear. CARDIOVASCULAR: Regular S1 and S2 with no gallop. 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 ABDOMEN: Distended. EXTREMITIES: No pitting edema. Cedric Bernard MD Jul 11, 2019 14:54
[2019-07-11] MEDS ORDERED: D5 1/2NS 1000ml IV ONE (14:56)
[2019-07-11 16:00] VITALS: BP 137/64
--- NOTE | 2019-07-11 16:14 | General Progress Note ---
Assessment/Plan Assessment/Plan: Assessment - colonic distention - s/p colonic tube decompression - abnormal electolytes - OBS - debilitation Recommendation - continue rectal tube decompression - surgical followup - po as tolerated Subjective Allergies: Coded Allergies: No Known Allergies (Unverified , 04/22/17) Objective Last 24 Hour Vital Signs Date Time Temp Pulse Resp B/P (MAP) Pulse Ox O2 Delivery O2 Flow Rate FiO2 07/11/19 12:10 97.5 07/11/19 12:00 96.7 60 20 109/65 (80) 100 07/11/19 12:00 60 07/11/19 09:00 Room Air 07/11/19 08:00 97.5 60 18 127/62 (83) 100 07/11/19 08:00 60 07/11/19 04:00 98.2 62 18 148/71 (96) 100 07/11/19 04:00 62 07/11/19 00:00 60 07/11/19 00:00 97.8 64 20 147/94 (111) 100 07/10/19 21:00 Room Air 07/10/19 20:00 98.3 61 18 105/69 (81) 100 07/10/19 20:00 70 Intake and Output 07/10/19 07/11/19 19:00 07:00 Intake Total 140 ml 12 ml Balance 140 ml 12 ml Intake Oral 140 ml 12 ml # Voids 2 Laboratory Tests 07/11/19 05:48: White Blood Count 7.2, Red Blood Count 4.03L, Hemoglobin 12.7L, Hematocrit 36.5L , Mean Corpuscular Volume 91, Mean Corpuscular Hemoglobin 31.6H, Mean Corpuscular Hemoglobin Concent 34.9, Red Cell Distribution Width 10.8L, Platelet Count 185, Mean Platelet Volume 5.7L, Neutrophils (%) (Auto) 78.2H, Lymphocytes (%) (Auto) 14.9L, Monocytes (%) (Auto) 6.1, Eosinophils (%) (Auto) 0.2, Basophils (%) (Auto) 0.5, Sodium Level 147H, Potassium Level 2.0*L, Chloride Level 113H, Carbon Dioxide Level 22, Anion Gap 12, Blood Urea Nitrogen 15, Creatinine 1.0, Estimat Glomerular Filtration Rate , Glucose Level 82, Calcium Level 7.7L, Phosphorus Level 2.5, Magnesium Level 1.9, Total Bilirubin 0.3, Aspartate Amino Transf (AST/SGOT) 19, Alanine Aminotransferase (ALT/SGPT) 18, Alkaline Phosphatase 65, Troponin I 0.082H, C-Reactive Protein, Quantitative < 0.4, Pro-B-Type Natriuretic Peptide 2650H, Total Protein 5.6L, Albumin 2.2L, Globulin 3.4, Albumin/Globulin Ratio 0.6L 07/11/19 10:00: Urine Color Pale yellow, Urine Appearance Clear, Urine pH 5, Urine Specific [place] 1.015, Urine Protein 1+H, Urine Glucose (UA) Negative, Urine Ketones Negative, Urine Blood 1+H, Urine Nitrite Negative, Urine Bilirubin Negative, Urine Urobilinogen Normal, Urine Leukocyte Esterase 3+H, Urine RBC 0-2H, Urine WBC 5-10H, Urine Squamous Epithelial Cells Occasional, Urine Bacteria Occasional , Urine Yeast FewH Height (Feet): 5 Height (Inches): 10.00 Weight (Pounds): 160 Naresh Sher MD Jul 11, 2019 16:14
--- NOTE | 2019-07-11 16:19 | Surgery Progress Note ---
Surgery Progress Note Subjective Symptoms: improved Additional Comments rectal tube placed by GI and decompressed improved labs noted replacement Objective Last 24 Hour Vital Signs Date Time Temp Pulse Resp B/P (MAP) Pulse Ox O2 Delivery O2 Flow Rate FiO2 07/11/19 12:10 97.5 07/11/19 12:00 96.7 60 20 109/65 (80) 100 07/11/19 12:00 60 07/11/19 09:00 Room Air 07/11/19 08:00 97.5 60 18 127/62 (83) 100 07/11/19 08:00 60 07/11/19 04:00 98.2 62 18 148/71 (96) 100 07/11/19 04:00 62 07/11/19 00:00 60 07/11/19 00:00 97.8 64 20 147/94 (111) 100 07/10/19 21:00 Room Air 07/10/19 20:00 98.3 61 18 105/69 (81) 100 07/10/19 20:00 70 I&O Intake and Output 07/10/19 07/11/19 19:00 07:00 Intake Total 140 ml 12 ml Balance 140 ml 12 ml Intake Oral 140 ml 12 ml # Voids 2 Cardiovascular: RSR Respiratory: clear Abdomen: soft, non-tender, non-distended, decreased bowel sounds Extremities: no tenderness, no cyanosis Laboratory Tests Test 07/11/19 05:48 07/11/19 10:00 White Blood Count 7.2 K/UL (4.8-10.8) Red Blood Count 4.03 M/UL (4.70-6.10) L Hemoglobin 12.7 G/DL (14.2-18.0) L Hematocrit 36.5 % (42.0-52.0) L Mean Corpuscular Volume 91 FL (80-99) Mean Corpuscular Hemoglobin 31.6 PG (27.0-31.0) H Mean Corpuscular Hemoglobin Concent 34.9 G/DL (32.0-36.0) Red Cell Distribution Width 10.8 % (11.6-14.8) L Platelet Count 185 K/UL (150-450) Mean Platelet Volume 5.7 FL (6.5-10.1) L Neutrophils (%) (Auto) 78.2 % (45.0-75.0) H Lymphocytes (%) (Auto) 14.9 % (20.0-45.0) L Monocytes (%) (Auto) 6.1 % (1.0-10.0) Eosinophils (%) (Auto) 0.2 % (0.0-3.0) Basophils (%) (Auto) 0.5 % (0.0-2.0) Sodium Level 147 MMOL/L (136-145) H Potassium Level 2.0 MMOL/L (3.5-5.1) *L Chloride Level 113 MMOL/L (98-107) H Carbon Dioxide Level 22 MMOL/L (21-32) Anion Gap 12 mmol/L (5-15) Blood Urea Nitrogen 15 mg/dL (7-18) Creatinine 1.0 MG/DL (0.55-1.30) Estimat Glomerular Filtration Rate mL/min (>60) Glucose Level 82 MG/DL (74-106) Calcium Level 7.7 MG/DL (8.5-10.1) L Phosphorus Level 2.5 MG/DL (2.5-4.9) Magnesium Level 1.9 MG/DL (1.8-2.4) Total Bilirubin 0.3 MG/DL (0.2-1.0) Aspartate Amino Transf (AST/SGOT) 19 U/L (15-37) Alanine Aminotransferase (ALT/SGPT) 18 U/L (12-78) Alkaline Phosphatase 65 U/L (46-116) Troponin I 0.082 ng/mL (0.000-0.056) C-Reactive Protein, Quantitative < 0.4 mg/dL (0.00-0.90) Pro-B-Type Natriuretic Peptide 2650 pg/mL (0-125) H Total Protein 5.6 G/DL (6.4-8.2) L Albumin 2.2 G/DL (3.4-5.0) L Globulin 3.4 g/dL Albumin/Globulin Ratio 0.6 (1.0-2.7) L Urine Color Pale yellow Urine Appearance Clear Urine pH 5 (4.5-8.0) Urine Specific [place] 1.015 (1.005-1.035) Urine Protein 1+ (NEGATIVE) H Urine Glucose (UA) Negative (NEGATIVE) Urine Ketones Negative (NEGATIVE) Urine Blood 1+ (NEGATIVE) H Urine Nitrite Negative (NEGATIVE) Urine Bilirubin Negative (NEGATIVE) Urine Urobilinogen Normal MG/DL (0.0-1.0) Urine Leukocyte Esterase 3+ (NEGATIVE) H Urine RBC 0-2 /HPF (0 - 0) H Urine WBC 5-10 /HPF (0 - 0) H Urine Squamous Epithelial Cells Occasional /LPF Urine Bacteria Occasional /HPF (NONE) Urine Yeast Few /HPF (NONE) H Plan Problems: (1) Abdominal distention Assessment & Plan: similar to prior but now patient with more weight loss so distention more prominent soft, no perforation, non tender, but still massively distended discussed with patient at bedside. still having small multiple BM and flatus. no n/v he has functional colonic and bowel problem and not true obstruction discussed consideration for decompression and surgery he states currently he is not considering surgery as an option decompressed by GI with rectal tube stable will monitor Trial oral liquid diet will follow with recs thank you There is massive distention of the sigmoid colon with more mild upstream distention of the remainder of the colon. The sigmoid colon measures up to 14 cm in AP dimension. Sigmoid is dilated to a clear transition point just to the right of midline in the pelvis where there is abnormal twisting/swirling of the mesentery around the narrow portion of sigmoid colon. As on the prior exam there is no proximal transition point or narrowing. There is no evidence of free intraperitoneal air or fluid. Some contrast is noted within the rectum. Uncertain if this was administered prior to the current study or if this represents residual from a prior contrast administration. There is a small hiatal hernia. There is thickening of the distal esophagus as well which may suggest esophagitis. There is no evidence of small bowel obstruction. There is mass effect on the intra-abdominal organs related to the markedly distended sigmoid colon. Liver, spleen grossly unremarkable. There is an unchanged indeterminate nodule in the lateral limb of the right adrenal gland which measures up to 1.1 cm. Stable in size compared to the prior exam. There is a large cyst in the upper pole left kidney which measures 6.2 cm. Smaller simple appearing cysts also noted in the left. There is no hydronephrosis or urinary tract stone. Pancreas and bladder grossly unremarkable. The prostate is enlarged and heterogeneous. Abdominal aorta is infrarenal abdominal aorta measures up to 3 cm AP with moderate atherosclerotic calcification. There are degenerative changes in the spine and bilateral hips. There is patchy sclerosis in the visualized osseous structures. No acute fracture. IMPRESSION: * Marked distention of the sigmoid colon up to a abrupt transition in the distal sigmoid where there is swirling in the mesentery concerning for volvulus. Similar to the prior exam no proximal transition point or narrowing is noted, instead there is upstream dilatation of the remainder of the colon. Recommend surgical evaluation and/or colonoscopy. * No evidence of free intraperitoneal air or fluid. * No small bowel obstruction. * Small hiatal hernia with thickening of the distal esophagus suggesting esophagitis. Consider correlation with endoscopy. 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 * Indeterminate right adrenal nodule measuring 1.1 cm, stable compared to the prior exam. * Left renal cysts, largest measures approximately 6.3 cm diameter. * Enlarged and heterogeneous prostate which may be on the basis of BPH. Correlation with prostate exam and PSA however is recommended. * Unusual osseous mineralization with patchy sclerosis, also seen previously and unchanged. This may be on the basis of chronic osteoporotic changes. Consider further evaluation with bone scan. (2) Ileus (3) Gastroparesis (4) Failure to thrive Chava Smith Jul 11, 2019 16:19
--- NOTE | 2019-07-11 19:44 | NUR ---
HAND-OFF: Report given to Arnold Mclain. aware patient to receive 2 more bags of potassium tonight. patient stable. Plan of care endorsed.
[2019-07-11 20:00] VITALS: BP 121/57
[2019-07-12] VITALS: BP 119/59
[2019-07-12 04:00] VITALS: BP 130/59
--- NOTE | 2019-07-12 07:00 | NUR ---
HAND-OFF: Report given to Ry GOSS. Endorsed plan of care.
--- NOTE | 2019-07-12 07:22 | Hematology/Onc Progress Note ---
Assessment/Plan Assessment/Plan Assessment and Recs: # Abdominal pain r/o volvulus, has been evaluated by surg and gi in the past, egd/colo completed as well in past --> rectal tube inserted as per gi --> trial po intake --> as per gi and surg recs # Failure to thrive (FTT) - decreased bmi and low protein, protein decreased, decreased po intake --> cea is 7.1, as per gi eval --> will also obtain q3d caloric counts --> mirtazapine as appetite stimulant --> GI consult has ordered, appreciate recs --> may need a gtube # Anemia of chronic disease due to underlying chronic medical issues, multifactorial --> Anemia workup has been ordered, rule out gi bleed --> No evidence of hemolysis is noted, peripheral smear has been reviewed. --> Hgb goal >7. Transfuse prn. --> Epogen or iron at this time is not particularly indicated --> Medications have been reviewed # Episode of generalized weakness --> cea is 7.1, as per gi team --> ivf have been started # Encephalopathy --> neuro eval as needed # Dehydration --> per renal # [facility] Pacemaker - as per cards # Troponin leak # Dvt ppx with heparin sq Greatly appreciate consultation. Subjective HEENT: Denies: no symptoms, eye pain, blurred vision, tearing, double vision, ear pain, ear discharge, nose pain, nose congestion, throat pain, throat swelling, mouth pain, mouth swelling, other Cardiovascular: Denies: no symptoms, chest pain, edema, irregular heart rate, lightheadedness, palpitations, syncope, other Respiratory: Denies: no symptoms, cough, shortness of breath, SOB with excertion, SOB at rest, sputum, wheezing, other Gastrointestinal/Abdominal: Denies: no symptoms, abdomen distended, abdominal pain, black stools, tarry stools, blood in stool, constipated, diarrhea, difficulty swallowing, nausea, poor appetite, poor fluid intake, rectal bleeding , vomiting, other Genitourinary: Denies: no symptoms, burning, discharge, frequency, flank pain, hematuria, incontinence, pain, urgency, other Neurologic/Psychiatric: Denies: no symptoms, anxiety, depressed, emotional problems, headache, numbness, paresthesia, pre-existing deficit, seizure, tingling, tremors, weakness, other Endocrine: Denies: no symptoms, excessive sweating, flushing, intolerance to cold, intolerance to heat, increased hunger, increased thirst, increased urine, unexplained weight gain, unexplained weight loss, other Allergies: Coded Allergies: No Known Allergies (Unverified , 04/22/17) Subjective 07/11: no events, no bleeding, rectal tube flused, dw Rn 07/12: no f/c, no bleeding, dw rn, rect tube in place, bp is mildly high Objective Objective Current Medications Medications (Trade) Dose Ordered Sig/Kevin Route PRN Reason Start Time Stop Time Status Last Admin Dose Admin Acetaminophen (Tylenol) 650 mg Q4H PRN ORAL Mild Pain/Temp > 100.5 07/09/19 20:00 08/08/19 19:59 07/11/19 11:40 Dextrose 1,000 ml @ 50 mls/hr Q20H IV 07/11/19 12:00 08/10/19 11:59 07/11/19 12:00 Diphenhydramine HCl (Benadryl) 25 mg Q6H PRN ORAL Itching 07/09/19 20:00 08/08/19 19:59 Heparin Sodium (Porcine) (Heparin 5000 units/ml) 5,000 units EVERY 12 HOURS SUBQ 07/09/19 21:00 08/08/19 20:59 07/11/19 21:07 Mesalamine (Asacol) 1,600 mg THREE TIMES A DAY ORAL 07/11/19 13:00 08/10/19 12:59 07/11/19 12:52 Pantoprazole (Protonix) 40 mg EVERY 12 HOURS ORAL 07/11/19 21:00 08/10/19 20:59 07/11/19 21:06 Spironolactone (Aldactone) 25 mg EVERY 12 HOURS ORAL 07/11/19 12:00 08/10/19 11:59 07/11/19 21:05 Zolpidem Tartrate (Ambien) 5 mg HSPRN PRN ORAL Insomnia 07/09/19 20:00 07/16/19 19:59 Last 24 Hour Vital Signs Date Time Temp Pulse Resp B/P (MAP) Pulse Ox O2 Delivery O2 Flow Rate FiO2 07/12/19 04:00 97.6 79 19 130/59 (82) 98 07/12/19 04:00 60 07/12/19 00:00 98.0 63 17 119/59 (79) 100 07/12/19 00:00 59 07/11/19 21:00 Room Air 07/11/19 20:00 98.1 60 18 121/57 (78) 100 07/11/19 20:00 60 07/11/19 16:00 58 07/11/19 16:00 98.1 65 19 137/64 (88) 100 07/11/19 12:10 97.5 07/11/19 12:00 96.7 60 20 109/65 (80) 100 07/11/19 12:00 60 07/11/19 09:00 Room Air 07/11/19 08:00 97.5 60 18 127/62 (83) 100 07/11/19 08:00 60 07/11/19 04:00 98.2 62 18 148/71 (96) 100 07/11/19 04:00 62 07/11/19 00:00 60 07/11/19 00:00 97.8 64 20 147/94 (111) 100 07/10/19 21:00 Room Air 07/10/19 20:00 98.3 61 18 105/69 (81) 100 07/10/19 20:00 70 07/10/19 16:00 97.3 66 20 158/74 (102) 100 07/10/19 16:00 63 07/10/19 12:00 98.6 65 20 100/57 (71) 100 07/10/19 12:00 60 07/10/19 09:00 Room Air 07/10/19 08:00 98.0 60 20 145/75 (98) 100 07/10/19 08:00 60 Intake and Output 07/11/19 07/12/19 19:00 07:00 Intake Total 140 ml Output Total 1250 ml Balance -1110 ml Intake Oral 140 ml Output Urine Total 450 ml Stool Total 800 ml # Voids 2 # Bowel Movements 1 Labs Test 07/09/19 13:56 07/10/19 09:50 07/11/19 05:48 07/11/19 10:00 White Blood Count 6.1 K/UL (4.8-10.8) 6.3 K/UL (4.8-10.8) 7.2 K/UL (4.8-10.8) Red Blood Count 4.93 M/UL (4.70-6.10) 4.07 M/UL (4.70-6.10) 4.03 M/UL (4.70-6.10) Hemoglobin 15.1 G/DL (14.2-18.0) 12.6 G/DL (14.2-18.0) 12.7 G/DL (14.2-18.0) Hematocrit 45.3 % (42.0-52.0) 37.3 % (42.0-52.0) 36.5 % (42.0-52.0) Mean Corpuscular Volume 92 FL (80-99) 91 FL (80-99) 91 FL (80-99) Mean Corpuscular Hemoglobin 30.7 PG (27.0-31.0) 30.8 PG (27.0-31.0) 31.6 PG (27.0-31.0) Mean Corpuscular Hemoglobin Concent 33.4 G/DL (32.0-36.0) 33.7 G/DL (32.0-36.0) 34.9 G/DL (32.0-36.0) Red Cell Distribution Width 12.4 % (11.6-14.8) 11.5 % (11.6-14.8) 10.8 % (11.6-14.8) Platelet Count 251 K/UL (150-450) 246 K/UL (150-450) 185 K/UL (150-450) Mean Platelet Volume 5.6 FL (6.5-10.1) 5.9 FL (6.5-10.1) 5.7 FL (6.5-10.1) Neutrophils (%) (Auto) 74.9 % (45.0-75.0) 79.0 % (45.0-75.0) 78.2 % (45.0-75.0) Lymphocytes (%) (Auto) 18.9 % (20.0-45.0) 15.0 % (20.0-45.0) 14.9 % (20.0-45.0) Monocytes (%) (Auto) 5.2 % (1.0-10.0) 5.5 % (1.0-10.0) 6.1 % (1.0-10.0) Eosinophils (%) (Auto) 0.1 % (0.0-3.0) 0.1 % (0.0-3.0) 0.2 % (0.0-3.0) Basophils (%) (Auto) 0.9 % (0.0-2.0) 0.5 % (0.0-2.0) 0.5 % (0.0-2.0) Prothrombin Time 10.7 SEC (9.30-11.50) Prothromb Time International Ratio 1.0 (0.9-1.1) Activated Partial Thromboplast Time 27 SEC (23-33) Sodium Level 147 MMOL/L (136-145) 145 MMOL/L (136-145) 147 MMOL/L (136-145) Potassium Level 2.5 MMOL/L (3.5-5.1) 2.0 MMOL/L (3.5-5.1) 2.0 MMOL/L (3.5-5.1) Chloride Level 109 MMOL/L (98-107) 112 MMOL/L (98-107) 113 MMOL/L (98-107) Carbon Dioxide Level 28 MMOL/L (21-32) 24 MMOL/L (21-32) 22 MMOL/L (21-32) Anion Gap 9 mmol/L (5-15) 9 mmol/L (5-15) 12 mmol/L (5-15) Blood Urea Nitrogen 25 mg/dL (7-18) 19 mg/dL (7-18) 15 mg/dL (7-18) Creatinine 1.2 MG/DL (0.55-1.30) 1.0 MG/DL (0.55-1.30) 1.0 MG/DL (0.55-1.30) Estimat Glomerular Filtration Rate mL/min (>60) mL/min (>60) mL/min (>60) Glucose Level 97 MG/DL (74-106) 95 MG/DL (74-106) 82 MG/DL (74-106) Calcium Level 9.0 MG/DL (8.5-10.1) 8.3 MG/DL (8.5-10.1) 7.7 MG/DL (8.5-10.1) Total Bilirubin 0.4 MG/DL (0.2-1.0) 0.3 MG/DL (0.2-1.0) Aspartate Amino Transf (AST/SGOT) 21 U/L (15-37) 19 U/L (15-37) Alanine Aminotransferase (ALT/SGPT) 27 U/L (12-78) 18 U/L (12-78) Alkaline Phosphatase 82 U/L (46-116) 65 U/L (46-116) Total Creatine Kinase 65 U/L (26-308) Troponin I 0.060 ng/mL (0.000-0.056) 0.100 ng/mL (0.000-0.056) 0.082 ng/mL (0.000-0.056) Total Protein 7.2 G/DL (6.4-8.2) 5.6 G/DL (6.4-8.2) Albumin 3.0 G/DL (3.4-5.0) 2.2 G/DL (3.4-5.0) Globulin 4.2 g/dL 3.4 g/dL Albumin/Globulin Ratio 0.7 (1.0-2.7) 0.6 (1.0-2.7) Lipase 85 U/L (73-393) Lactic Acid Level 0.40 mmol/L (0.4-2.0) Pro-B-Type Natriuretic Peptide 1645 pg/mL (0-125) 2650 pg/mL (0-125) Prostate Specific Antigen 0.84 ng/mL (0.13-4.0) Phosphorus Level 2.5 MG/DL (2.5-4.9) Magnesium Level 1.9 MG/DL (1.8-2.4) C-Reactive Protein, Quantitative < 0.4 mg/dL (0.00-0.90) Urine Color Pale yellow Urine Appearance Clear Urine pH 5 (4.5-8.0) Urine Specific [place] 1.015 (1.005-1.035) Urine Protein 1+ (NEGATIVE) Urine Glucose (UA) Negative (NEGATIVE) Urine Ketones Negative (NEGATIVE) Urine Blood 1+ (NEGATIVE) Urine Nitrite Negative (NEGATIVE) Urine Bilirubin Negative (NEGATIVE) Urine Urobilinogen Normal MG/DL (0.0-1.0) Urine Leukocyte Esterase 3+ (NEGATIVE) Urine RBC 0-2 /HPF (0 - 0) Urine WBC 5-10 /HPF (0 - 0) Urine Squamous Epithelial Cells Occasional /LPF Urine Bacteria Occasional /HPF (NONE) Urine Yeast Few /HPF (NONE) Height (Feet): 5 Height (Inches): 10.00 Weight (Pounds): 160 Objective PE General: alert, non-toxic, thin, Chronically Ill HEENT: poor dentition Resp: lungs clear, normal breath sounds CV: regular rate, rhythm GI: normal inspection, non tender, no guarding, no rebound, distended+ : no CVA tenderness ++ rectal tube Sterling Singletary MD Jul 12, 2019 07:22
[2019-07-12 07:54] LABS: BASOPHILS % (AUTO) 0.4 % (0.0-2.0); EOSINOPHILS % (AUTO) 0.1 % (0.0-3.0); HEMATOCRIT 37.6 % (42.0-52.0); HEMOGLOBIN 13.1 G/DL (14.2-18.0); MEAN CORPUSCULAR VOLUME 90 FL (80-99); MONOCYTES % (AUTO) 5.7 % (1.0-10.0); NEUTROPHILS % (AUTO) 82.9 % (45.0-75.0); PLATELET COUNT 226 K/UL (150-450); RED CELL DISTRIBUTION WIDTH 10.2 % (11.6-14.8); WHITE BLOOD COUNT 8.3 K/UL (4.8-10.8)
[2019-07-12 08:00] VITALS: BP 138/74
--- NOTE | 2019-07-12 08:16 | NUR ---
NURSE NOTES: Received from ANA PAULA Carbajal. patient awke and spoke some coherent greetings with this RN. IV to R leg patent and no leaks or signs of infiltration. Bed in lowest, locked position. Turned and repositioned with pillow supports. AOX2-3 , breathing easily on RA with no sign of cardiac distress. Call garces and urinal in reach. Rectal tube in place, no kinks appears patent, however it was disconnected from drainage tube / bag. reconnected and hygiene provided. Patient tolerated 2 sips of ensure--will continue to encourage po fluids and protein intake.
--- NOTE | 2019-07-12 08:25 | NUR ---
NURSE NOTES: K of 1.6 per call from Patricia in lab. Call to Dr Marshall placed and repeat stat ordered.
[2019-07-12] MEDS: Spironolactone 25mg tab ORAL SCH (09:24)
[2019-07-12] MEDS: Mesalamine 400mg cap ORAL SCH ×3 (09:24→17:20)
[2019-07-12] MEDS: Heparin 5000 units/ml inj SUBQ SCH ×2 (09:35→21:11)
[2019-07-12 09:51] LABS: ALANINE AMINOTRANSFERASE 19 U/L (12-78); ALBUMIN 2.3 G/DL (3.4-5.0); ALBUMIN/GLOBULIN RATIO 0.6 (1.0-2.7); ALKALINE PHOSPHATASE 70 U/L (46-116); ANION GAP 10 mmol/L (5-15); ASPARTATE AMINO TRANSFERASE 22 U/L (15-37); BILIRUBIN,TOTAL 0.5 MG/DL (0.2-1.0); BLOOD UREA NITROGEN 10 mg/dL (7-18); CALCIUM 7.7 MG/DL (8.5-10.1); CARBON DIOXIDE 26 MMOL/L (21-32); CHLORIDE 110 MMOL/L (98-107); CREATINE KINASE 102 U/L (26-308); PHOSPHORUS 2.5 MG/DL (2.5-4.9); SODIUM 145 MMOL/L (136-145)
[2019-07-12 09:57] LABS: POTASSIUM 1.7 MMOL/L (3.5-5.1)
--- NOTE | 2019-07-12 11:02 | Surgery Progress Note ---
Surgery Progress Note Subjective Symptoms: improved, tolerating diet, passing flatus, other Objective Last 24 Hour Vital Signs Date Time Temp Pulse Resp B/P (MAP) Pulse Ox O2 Delivery O2 Flow Rate FiO2 07/12/19 08:00 97.8 59 18 138/74 (95) 98 07/12/19 08:00 60 07/12/19 04:00 97.6 79 19 130/59 (82) 98 07/12/19 04:00 60 07/12/19 00:00 98.0 63 17 119/59 (79) 100 07/12/19 00:00 59 07/11/19 21:00 Room Air 07/11/19 20:00 98.1 60 18 121/57 (78) 100 07/11/19 20:00 60 07/11/19 16:00 58 07/11/19 16:00 98.1 65 19 137/64 (88) 100 07/11/19 12:10 97.5 07/11/19 12:00 96.7 60 20 109/65 (80) 100 07/11/19 12:00 60 I&O Intake and Output 07/11/19 07/12/19 19:00 07:00 Intake Total 140 ml Output Total 1250 ml Balance -1110 ml Intake Oral 140 ml Output Urine Total 450 ml Stool Total 800 ml # Voids 2 # Bowel Movements 1 Dressing: other Wound: other Drains: other Cardiovascular: RSR Respiratory: decreased breath sounds Abdomen: soft, non-tender, non-distended, decreased bowel sounds Extremities: no edema, no tenderness, no cyanosis Laboratory Tests Test 07/12/19 07:14 07/12/19 09:00 White Blood Count 8.3 K/UL (4.8-10.8) Red Blood Count 4.20 M/UL (4.70-6.10) L Hemoglobin 13.1 G/DL (14.2-18.0) L Hematocrit 37.6 % (42.0-52.0) L Mean Corpuscular Volume 90 FL (80-99) Mean Corpuscular Hemoglobin 31.3 PG (27.0-31.0) H Mean Corpuscular Hemoglobin Concent 34.9 G/DL (32.0-36.0) Red Cell Distribution Width 10.2 % (11.6-14.8) L Platelet Count 226 K/UL (150-450) Mean Platelet Volume 5.8 FL (6.5-10.1) L Neutrophils (%) (Auto) 82.9 % (45.0-75.0) H Lymphocytes (%) (Auto) 11.0 % (20.0-45.0) L Monocytes (%) (Auto) 5.7 % (1.0-10.0) Eosinophils (%) (Auto) 0.1 % (0.0-3.0) Basophils (%) (Auto) 0.4 % (0.0-2.0) Sodium Level 145 MMOL/L (136-145) Potassium Level 1.7 MMOL/L (3.5-5.1) *L Chloride Level 110 MMOL/L (98-107) H Carbon Dioxide Level 26 MMOL/L (21-32) Anion Gap 10 mmol/L (5-15) Blood Urea Nitrogen 10 mg/dL (7-18) Creatinine 1.0 MG/DL (0.55-1.30) Estimat Glomerular Filtration Rate mL/min (>60) Glucose Level 97 MG/DL (74-106) Uric Acid 6.4 MG/DL (2.6-7.2) Calcium Level 7.7 MG/DL (8.5-10.1) L Phosphorus Level 2.5 MG/DL (2.5-4.9) Magnesium Level 1.7 MG/DL (1.8-2.4) L Total Bilirubin 0.5 MG/DL (0.2-1.0) Aspartate Amino Transf (AST/SGOT) 22 U/L (15-37) Alanine Aminotransferase (ALT/SGPT) 19 U/L (12-78) Alkaline Phosphatase 70 U/L (46-116) Total Creatine Kinase 102 U/L (26-308) Total Protein 5.9 G/DL (6.4-8.2) L Albumin 2.3 G/DL (3.4-5.0) L Globulin 3.6 g/dL Albumin/Globulin Ratio 0.6 (1.0-2.7) L Thyroid Stimulating Hormone (TSH) 3.816 uiU/mL (0.358-3.740) Plan Problems: (1) Abdominal distention Assessment & Plan: similar to prior but now patient with more weight loss so distention more prominent soft, no perforation, non tender, but still massively distended discussed with patient at bedside. still having small multiple BM and flatus. no n/v he has functional colonic and bowel problem and not true obstruction discussed consideration for decompression and surgery he states currently he is not considering surgery as an option decompressed by GI with rectal tube stable will monitor Trial oral liquid diet will follow with recs thank you There is massive distention of the sigmoid colon with more mild upstream distention of the remainder of the colon. The sigmoid colon measures up to 14 cm in AP dimension. Sigmoid is dilated to a clear transition point just to the right of midline in the pelvis where there is abnormal twisting/swirling of the mesentery around the narrow portion of sigmoid colon. As on the prior exam there is no proximal transition point or narrowing. There is no evidence of free intraperitoneal air or fluid. Some contrast is noted within the rectum. Uncertain if this was administered prior to the current study or if this represents residual from a prior contrast administration. There is a small hiatal hernia. There is thickening of the distal esophagus as well which may suggest esophagitis. There is no evidence of small bowel obstruction. There is mass effect on the intra-abdominal organs related to the markedly distended sigmoid colon. Liver, spleen grossly unremarkable. There is an unchanged indeterminate nodule in the lateral limb of the right adrenal gland which measures up to 1.1 cm. Stable in size compared to the prior exam. There is a large cyst in the upper pole left kidney which measures 6.2 cm. Smaller simple appearing cysts also noted in the left. There is no hydronephrosis or urinary tract stone. Pancreas and bladder grossly unremarkable. The prostate is enlarged and heterogeneous. Abdominal aorta is infrarenal abdominal aorta measures up to 3 cm AP with moderate atherosclerotic calcification. There are degenerative changes in the spine and bilateral hips. There is patchy sclerosis in the visualized osseous structures. No acute fracture. IMPRESSION: * Marked distention of the sigmoid colon up to a abrupt transition in the distal sigmoid where there is swirling in the mesentery concerning for volvulus. Similar to the prior exam no proximal transition point or narrowing is noted, instead there is upstream dilatation of the remainder of the colon. Recommend surgical evaluation and/or colonoscopy. * No evidence of free intraperitoneal air or fluid. * No small bowel obstruction. * Small hiatal hernia with thickening of the distal esophagus suggesting esophagitis. Consider correlation with endoscopy. 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 * Indeterminate right adrenal nodule measuring 1.1 cm, stable compared to the prior exam. * Left renal cysts, largest measures approximately 6.3 cm diameter. * Enlarged and heterogeneous prostate which may be on the basis of BPH. Correlation with prostate exam and PSA however is recommended. * Unusual osseous mineralization with patchy sclerosis, also seen previously and unchanged. This may be on the basis of chronic osteoporotic changes. Consider further evaluation with bone scan. (2) Ileus (3) Gastroparesis (4) Failure to thrive Chava Smith Jul 12, 2019 11:02
--- NOTE | 2019-07-12 11:22 | Nephrology Progress Note ---
Assessment/Plan Problem List: (1) Hypokalemia Assessment: due to diarrhea (2) Dehydration (3) Failure to thrive (4) Elevated troponin (5) Abdominal distention Assessment HypoKalemia Severe UTI HTN Ileus FFT troponin Leak Pacemaker Plan K supplement IV and PO resume Aldactone resume Asacol monitor lytes per orders check TSH Subjective ROS Limited/Unobtainable: No Constitutional: Reports: malaise Objective Objective Last 24 Hour Vital Signs Date Time Temp Pulse Resp B/P (MAP) Pulse Ox O2 Delivery O2 Flow Rate FiO2 07/12/19 08:00 97.8 59 18 138/74 (95) 98 07/12/19 08:00 60 07/12/19 04:00 97.6 79 19 130/59 (82) 98 07/12/19 04:00 60 07/12/19 00:00 98.0 63 17 119/59 (79) 100 07/12/19 00:00 59 07/11/19 21:00 Room Air 07/11/19 20:00 98.1 60 18 121/57 (78) 100 07/11/19 20:00 60 07/11/19 16:00 58 07/11/19 16:00 98.1 65 19 137/64 (88) 100 07/11/19 12:10 97.5 07/11/19 12:00 96.7 60 20 109/65 (80) 100 07/11/19 12:00 60 Intake and Output 07/11/19 07/12/19 19:00 07:00 Intake Total 140 ml Output Total 1250 ml Balance -1110 ml Intake Oral 140 ml Output Urine Total 450 ml Stool Total 800 ml # Voids 2 # Bowel Movements 1 Laboratory Tests 07/12/19 07:14: White Blood Count 8.3, Red Blood Count 4.20L, Hemoglobin 13.1L, Hematocrit 37.6L , Mean Corpuscular Volume 90, Mean Corpuscular Hemoglobin 31.3H, Mean Corpuscular Hemoglobin Concent 34.9, Red Cell Distribution Width 10.2L, Platelet Count 226, Mean Platelet Volume 5.8L, Neutrophils (%) (Auto) 82.9H, Lymphocytes (%) (Auto) 11.0L, Monocytes (%) (Auto) 5.7, Eosinophils (%) (Auto) 0.1, Basophils (%) (Auto) 0.4 07/12/19 09:00: Sodium Level 145, Potassium Level 1.7*L, Chloride Level 110H, Carbon Dioxide Level 26, Anion Gap 10, Blood Urea Nitrogen 10, Creatinine 1.0, Estimat Glomerular Filtration Rate , Glucose Level 97, Uric Acid 6.4, Calcium Level 7.7L , Phosphorus Level 2.5, Magnesium Level 1.7L, Total Bilirubin 0.5, Aspartate Amino Transf (AST/SGOT) 22, Alanine Aminotransferase (ALT/SGPT) 19, Alkaline Phosphatase 70, Total Creatine Kinase 102, Total Protein 5.9L, Albumin 2.3L, Globulin 3.6, Albumin/Globulin Ratio 0.6L, Thyroid Stimulating Hormone (TSH) 3.816H Height (Feet): 5 Height (Inches): 10.00 Weight (Pounds): 160 General Appearance: no apparent distress Respiratory/Chest: lungs clear Abdomen: soft, distended Herve Marshall MD Jul 12, 2019 11:22
[2019-07-12 12:00] VITALS: BP 135/90
--- NOTE | 2019-07-12 14:08 | Cardiology Report ---
APPROVED REPORT EKG Measurement Heart [id number] Atrioventricular Sequential Pacemaker Abnormal ECG
--- NOTE | 2019-07-12 14:26 | Cardiac Electrophysiology PN ---
Assessment/Plan Assessment/Plan 1. Troponin leak. Denies any chest pain or SOB. EKG is not helpful as is ventricularly paced. Echocardiogram nl EF 2. Status post [facility] [facility] pacer. Interrogation showed normal pacemaker function. 3. Severe hypokalemia. Potassium 1.7 despite [address] Marshall ordered more iv and po again 4. Hypernatremia. The patient is getting IV fluid. 5. Possible bowel obstruction. CT scan of abdomen and pelvis showed marked distention of the sigmoid colon. No evidence of free intraperitoneal air or fluid. No small bowel obstruction. Further evaluation by Dr. Smith. WESLEY RN Subjective Subjective No CP or SOB . Has rectal tube in that is draining heavily. K 1.7!! despite iv replacement Objective Last 24 Hour Vital Signs Date Time Temp Pulse Resp B/P (MAP) Pulse Ox O2 Delivery O2 Flow Rate FiO2 07/12/19 08:00 97.8 59 18 138/74 (95) 98 07/12/19 08:00 60 07/12/19 04:00 97.6 79 19 130/59 (82) 98 07/12/19 04:00 60 07/12/19 00:00 98.0 63 17 119/59 (79) 100 07/12/19 00:00 59 07/11/19 21:00 Room Air 07/11/19 20:00 98.1 60 18 121/57 (78) 100 07/11/19 20:00 60 07/11/19 16:00 58 07/11/19 16:00 98.1 65 19 137/64 (88) 100 Intake and Output 07/11/19 07/12/19 19:00 07:00 Intake Total 140 ml Output Total 1250 ml Balance -1110 ml Intake Oral 140 ml Output Urine Total 450 ml Stool Total 800 ml # Voids 2 # Bowel Movements 1 Laboratory Tests Test 07/12/19 07:14 07/12/19 09:00 White Blood Count 8.3 K/UL (4.8-10.8) Red Blood Count 4.20 M/UL (4.70-6.10) L Hemoglobin 13.1 G/DL (14.2-18.0) L Hematocrit 37.6 % (42.0-52.0) L Mean Corpuscular Volume 90 FL (80-99) Mean Corpuscular Hemoglobin 31.3 PG (27.0-31.0) H Mean Corpuscular Hemoglobin Concent 34.9 G/DL (32.0-36.0) Red Cell Distribution Width 10.2 % (11.6-14.8) L Platelet Count 226 K/UL (150-450) Mean Platelet Volume 5.8 FL (6.5-10.1) L Neutrophils (%) (Auto) 82.9 % (45.0-75.0) H Lymphocytes (%) (Auto) 11.0 % (20.0-45.0) L Monocytes (%) (Auto) 5.7 % (1.0-10.0) Eosinophils (%) (Auto) 0.1 % (0.0-3.0) Basophils (%) (Auto) 0.4 % (0.0-2.0) Sodium Level 145 MMOL/L (136-145) Potassium Level 1.7 MMOL/L (3.5-5.1) *L Chloride Level 110 MMOL/L (98-107) H Carbon Dioxide Level 26 MMOL/L (21-32) Anion Gap 10 mmol/L (5-15) Blood Urea Nitrogen 10 mg/dL (7-18) Creatinine 1.0 MG/DL (0.55-1.30) Estimat Glomerular Filtration Rate mL/min (>60) Glucose Level 97 MG/DL (74-106) Uric Acid 6.4 MG/DL (2.6-7.2) Calcium Level 7.7 MG/DL (8.5-10.1) L Phosphorus Level 2.5 MG/DL (2.5-4.9) Magnesium Level 1.7 MG/DL (1.8-2.4) L Total Bilirubin 0.5 MG/DL (0.2-1.0) Aspartate Amino Transf (AST/SGOT) 22 U/L (15-37) Alanine Aminotransferase (ALT/SGPT) 19 U/L (12-78) Alkaline Phosphatase 70 U/L (46-116) Total Creatine Kinase 102 U/L (26-308) Total Protein 5.9 G/DL (6.4-8.2) L Albumin 2.3 G/DL (3.4-5.0) L Globulin 3.6 g/dL Albumin/Globulin Ratio 0.6 (1.0-2.7) L Thyroid Stimulating Hormone (TSH) 3.816 uiU/mL (0.358-3.740) Microbiology Date/Time Source Procedure Growth Status 07/11/19 10:00 Urine,Clean Catch Urine Culture - Preliminary Resulted Objective HEAD AND NECK: No JVD. LUNGS: Clear. CARDIOVASCULAR: Regular S1 and S2 with no gallop. 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 ABDOMEN: Distended. EXTREMITIES: No pitting edema. Cedric Bernard MD Jul 12, 2019 14:26
--- NOTE | 2019-07-12 14:43 | General Progress Note ---
Assessment/Plan Problem List: (1) Hypokalemia ICD Codes: E87.6 - Hypokalemia SNOMED: 44758650 (2) Dehydration ICD Codes: E86.0 - Dehydration SNOMED: 92749026 (3) Failure to thrive SNOMED: 73548486 Qualifiers: Qualified Codes: R62.7 - Adult failure to thrive (4) Volvulus ICD Codes: K56.2 - Volvulus SNOMED: 8987596 (5) Abdominal distention ICD Codes: R14.0 - Abdominal distension (gaseous) SNOMED: 88305904 (6) HTN (hypertension) ICD Codes: I10 - Essential (primary) hypertension SNOMED: 32404402 (7) Diabetes mellitus ICD Codes: E11.9 - Type 2 diabetes mellitus without complications SNOMED: 49846768 Assessment/Plan: rectal tube correct K abd x ray repeat advance to full liquid diet Subjective ROS Limited/Unobtainable: No Allergies: Coded Allergies: No Known Allergies (Unverified , 04/22/17) Objective Last 24 Hour Vital Signs Date Time Temp Pulse Resp B/P (MAP) Pulse Ox O2 Delivery O2 Flow Rate FiO2 07/12/19 08:00 97.8 59 18 138/74 (95) 98 07/12/19 08:00 60 07/12/19 04:00 97.6 79 19 130/59 (82) 98 07/12/19 04:00 60 07/12/19 00:00 98.0 63 17 119/59 (79) 100 07/12/19 00:00 59 07/11/19 21:00 Room Air 07/11/19 20:00 98.1 60 18 121/57 (78) 100 07/11/19 20:00 60 07/11/19 16:00 58 07/11/19 16:00 98.1 65 19 137/64 (88) 100 Intake and Output 07/11/19 07/12/19 19:00 07:00 Intake Total 140 ml Output Total 1250 ml Balance -1110 ml Intake Oral 140 ml Output Urine Total 450 ml Stool Total 800 ml # Voids 2 # Bowel Movements 1 Laboratory Tests 07/12/19 07:14: White Blood Count 8.3, Red Blood Count 4.20L, Hemoglobin 13.1L, Hematocrit 37.6L , Mean Corpuscular Volume 90, Mean Corpuscular Hemoglobin 31.3H, Mean Corpuscular Hemoglobin Concent 34.9, Red Cell Distribution Width 10.2L, Platelet Count 226, Mean Platelet Volume 5.8L, Neutrophils (%) (Auto) 82.9H, Lymphocytes (%) (Auto) 11.0L, Monocytes (%) (Auto) 5.7, Eosinophils (%) (Auto) 0.1, Basophils (%) (Auto) 0.4 07/12/19 09:00: Sodium Level 145, Potassium Level 1.7*L, Chloride Level 110H, Carbon Dioxide Level 26, Anion Gap 10, Blood Urea Nitrogen 10, Creatinine 1.0, Estimat Glomerular Filtration Rate , Glucose Level 97, Uric Acid 6.4, Calcium Level 7.7L , Phosphorus Level 2.5, Magnesium Level 1.7L, Total Bilirubin 0.5, Aspartate Amino Transf (AST/SGOT) 22, Alanine Aminotransferase (ALT/SGPT) 19, Alkaline Phosphatase 70, Total Creatine Kinase 102, Total Protein 5.9L, Albumin 2.3L, Globulin 3.6, Albumin/Globulin Ratio 0.6L, Thyroid Stimulating Hormone (TSH) 3.816H Height (Feet): 5 Height (Inches): 10.00 Weight (Pounds): 160 General Appearance: no apparent distress EENT: normal ENT inspection Neck: supple Cardiovascular: normal rate Respiratory/Chest: decreased breath sounds Abdomen: normal bowel sounds, non tender, soft Extremities: non-tender Tavares Ortiz MD Jul 12, 2019 14:42
--- NOTE | 2019-07-12 15:42 | Diagnostic Imaging Report ---
Indication: Abdominal distention Technique: Supine view of the abdomen Comparison: 07/10/2019 Findings: There is what appears to be a rectal catheter present. Previously demonstrated massive colonic distention is no longer evident. Currently, no definite gaseous distention of large or small bowel is demonstrated. Pacemaker wires are seen in the right heart. Impression: Evidence of interim successful decompression of previously demonstrated colonic distention with a rectal tube
--- NOTE | 2019-07-12 15:56 | General Progress Note ---
Assessment/Plan Problem List: (1) Ileus ICD Codes: K56.7 - Ileus, unspecified SNOMED: 256596368 (2) HTN (hypertension) ICD Codes: I10 - Essential (primary) hypertension SNOMED: 34122342 (3) Volvulus ICD Codes: K56.2 - Volvulus SNOMED: 6426697 (4) Abdominal distention ICD Codes: R14.0 - Abdominal distension (gaseous) SNOMED: 82708457 (5) Elevated troponin ICD Codes: R79.89 - Other specified abnormal findings of blood chemistry SNOMED: 452590209, 018482575, 318588948 (6) Hypokalemia ICD Codes: E87.6 - Hypokalemia SNOMED: 22814179 Status: unchanged Assessment/Plan: severe hypokalemia 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 dehydration kcl replacement per dr viridiana Martines ROS Limited/Unobtainable: Yes Allergies: Coded Allergies: No Known Allergies (Unverified , 04/22/17) Objective Last 24 Hour Vital Signs Date Time Temp Pulse Resp B/P (MAP) Pulse Ox O2 Delivery O2 Flow Rate FiO2 07/12/19 08:00 97.8 59 18 138/74 (95) 98 07/12/19 08:00 60 07/12/19 04:00 97.6 79 19 130/59 (82) 98 07/12/19 04:00 60 07/12/19 00:00 98.0 63 17 119/59 (79) 100 07/12/19 00:00 59 07/11/19 21:00 Room Air 07/11/19 20:00 98.1 60 18 121/57 (78) 100 07/11/19 20:00 60 07/11/19 16:00 58 07/11/19 16:00 98.1 65 19 137/64 (88) 100 Intake and Output 07/11/19 07/12/19 19:00 07:00 Intake Total 140 ml Output Total 1250 ml Balance -1110 ml Intake Oral 140 ml Output Urine Total 450 ml Stool Total 800 ml # Voids 2 # Bowel Movements 1 Laboratory Tests 07/12/19 07:14: White Blood Count 8.3, Red Blood Count 4.20L, Hemoglobin 13.1L, Hematocrit 37.6L , Mean Corpuscular Volume 90, Mean Corpuscular Hemoglobin 31.3H, Mean Corpuscular Hemoglobin Concent 34.9, Red Cell Distribution Width 10.2L, Platelet Count 226, Mean Platelet Volume 5.8L, Neutrophils (%) (Auto) 82.9H, Lymphocytes (%) (Auto) 11.0L, Monocytes (%) (Auto) 5.7, Eosinophils (%) (Auto) 0.1, Basophils (%) (Auto) 0.4 07/12/19 09:00: Sodium Level 145, Potassium Level 1.7*L, Chloride Level 110H, Carbon Dioxide Level 26, Anion Gap 10, Blood Urea Nitrogen 10, Creatinine 1.0, Estimat Glomerular Filtration Rate , Glucose Level 97, Uric Acid 6.4, Calcium Level 7.7L , Phosphorus Level 2.5, Magnesium Level 1.7L, Total Bilirubin 0.5, Aspartate Amino Transf (AST/SGOT) 22, Alanine Aminotransferase (ALT/SGPT) 19, Alkaline Phosphatase 70, Total Creatine Kinase 102, Total Protein 5.9L, Albumin 2.3L, Globulin 3.6, Albumin/Globulin Ratio 0.6L, Thyroid Stimulating Hormone (TSH) 3.816H Height (Feet): 5 Height (Inches): 10.00 Weight (Pounds): 160 Cardiovascular: normal rate Respiratory/Chest: lungs clear Jose Francisco Chand MD Jul 12, 2019 15:56
[2019-07-12 16:00] VITALS: BP 137/74
--- NOTE | 2019-07-12 19:01 | NUR ---
CASE MANAGEMENT: REVIEW 78Y/MALE BIBA FROM [facility] CC: GENERALIZED WEAKNESS SI: FAILURE TO THRIVE . ABDOMINAL DISTENTION . VOLVULUS CT/MRI/US CONCERNING FOR VOLVULUS -- RECOMMEND SURGICAL EVALUATION AND/OR COLONOSCOPY T 97.3 HR 68 RR 21 BP 129/82 SAT 100% ROOM AIR NS 147 K 2.5 IS: BARIUM PO X1 ASA PO X1 KCl 10 MEQ IV X1 K-DUR 40 MEQ NPO PATIENT ADMITTED TO TELEMETRY UNIT 07/09/2019 DCP: PATIENT IS FROM [facility]
--- NOTE | 2019-07-12 19:59 | NUR ---
NURSE NOTES: Received pt from ANA PAULA Raza. Pt is awake and resting in bed in no acute distress. IV site intact and running. Right posterior lower leg leaking fluid, applied xerofoam and abdominal pad, told by Dr. Smith. Rectal tube draining. Bed locked in lowest position side rails upx3, call light within reach, bed alarm on. Will continue with plan of care.
[2019-07-12 20:00] VITALS: BP 133/72
--- NOTE | 2019-07-12 20:25 | NUR ---
NURSE NOTES: R leg swollen discovered at time of Wound brick shader this afternoon. IV removed. Calf swollen--denied pain. IV appeared infiltrated --Venous doppler oredered for caution regarding possible DVT--negative. Blisters noted on calf this afternoon. At change of shift 7pm, inferior of calf blister open and drained copious serous fluid. Dr David Diehl seen on unit --recommendation of Xeroform and abd pads--endorsed to ashley GOSS. Addendum: 07/12/19 at 2030 by Vincent Dennis RN IV access obtained by necktie maker on R forarm--IV admin of 10 bags K and 4 bags of Mg postponed dt loss of IV access.
--- NOTE | 2019-07-12 20:29 | NUR ---
NURSE NOTES: Report given to ANA PAULA Marrufo. Bed in lowest, locked position and call garces in reach. No sign of cardiac or respiratory distress.
--- NOTE | 2019-07-12 20:31 | NUR ---
NURSE NOTES: GI dr informed that rectal tube with moderate amount of stool leaking around catheter, along with some draining through catheter--Dr stated that this was alright. Perianal Hygiene provided x3 this shift and reinforced tape (replaced) holding rectal cath in place.
[2019-07-12] MEDS: Spironolactone 50mg tab ORAL SCH (21:10)
[2019-07-13] VITALS: BP 120/70
[2019-07-13 04:00] VITALS: BP 137/70
--- NOTE | 2019-07-13 05:42 | Hematology/Onc Progress Note ---
Assessment/Plan Assessment/Plan Assessment and Recs: # Abdominal pain r/o volvulus, has been evaluated by surg and gi in the past, egd/colo completed as well in past --> rectal tube inserted as per gi --> trial po intake --> as per gi and surg recs # Failure to thrive (FTT) - decreased bmi and low protein, protein decreased, decreased po intake --> cea is 7.1, as per gi eval --> will also obtain q3d caloric counts --> mirtazapine as appetite stimulant --> GI consult has ordered, appreciate recs --> may need a gtube # Anemia of chronic disease due to underlying chronic medical issues, multifactorial --> Anemia workup has been ordered, rule out gi bleed --> No evidence of hemolysis is noted, peripheral smear has been reviewed. --> Hgb goal >7. Transfuse prn. --> Epogen or iron at this time is not particularly indicated --> Medications have been reviewed # Episode of generalized weakness --> cea is 7.1, as per gi team --> ivf have been started # Encephalopathy --> neuro eval as needed # Dehydration --> per renal # [place] Pacemaker - as per cards # Troponin leak # Dvt ppx with heparin sq Greatly appreciate consultation. Subjective HEENT: Denies: no symptoms, eye pain, blurred vision, tearing, double vision, ear pain, ear discharge, nose pain, nose congestion, throat pain, throat swelling, mouth pain, mouth swelling, other Respiratory: Denies: no symptoms, cough, shortness of breath, SOB with excertion, SOB at rest, sputum, wheezing, other Gastrointestinal/Abdominal: Denies: no symptoms, abdomen distended, abdominal pain, black stools, tarry stools, blood in stool, constipated, diarrhea, difficulty swallowing, nausea, poor appetite, poor fluid intake, rectal bleeding , vomiting, other Genitourinary: Denies: no symptoms, burning, discharge, frequency, flank pain, hematuria, incontinence, pain, urgency, other Neurologic/Psychiatric: Denies: no symptoms, anxiety, depressed, emotional problems, headache, numbness, paresthesia, pre-existing deficit, seizure, tingling, tremors, weakness, other Endocrine: Denies: no symptoms, excessive sweating, flushing, intolerance to cold, intolerance to heat, increased hunger, increased thirst, increased urine, unexplained weight gain, unexplained weight loss, other Allergies: Coded Allergies: No Known Allergies (Unverified , 04/22/17) Subjective 07/11: no events, no bleeding, rectal tube flused, dw Rn 07/12: no f/c, no bleeding, dw rn, rect tube in place, bp is mildly high 07/13: no events to report, no bleeding noted, xray abd repeat, k given Objective Objective Current Medications Medications (Trade) Dose Ordered Sig/Kevin Route PRN Reason Start Time Stop Time Status Last Admin Dose Admin Acetaminophen (Tylenol) 650 mg Q4H PRN ORAL Mild Pain/Temp > 100.5 07/09/19 20:00 08/08/19 19:59 07/11/19 11:40 Dextrose 1,000 ml @ 50 mls/hr Q20H IV 07/11/19 12:00 08/10/19 11:59 07/13/19 05:12 Diphenhydramine HCl (Benadryl) 25 mg Q6H PRN ORAL Itching 07/09/19 20:00 08/08/19 19:59 Heparin Sodium (Porcine) (Heparin 5000 units/ml) 5,000 units EVERY 12 HOURS SUBQ 07/09/19 21:00 08/08/19 20:59 07/12/19 21:11 Mesalamine (Asacol) 1,600 mg THREE TIMES A DAY ORAL 07/11/19 13:00 08/10/19 12:59 07/12/19 13:00 Pantoprazole (Protonix) 40 mg EVERY 12 HOURS ORAL 07/11/19 21:00 08/10/19 20:59 07/12/19 21:10 Potassium Chloride (K-Dur) 40 meq THREE TIMES A DAY ORAL 07/12/19 13:00 08/11/19 12:59 07/12/19 17:20 Spironolactone (Aldactone) 50 mg EVERY 12 HOURS ORAL 07/12/19 21:00 08/10/19 11:59 07/12/19 21:10 Zolpidem Tartrate (Ambien) 5 mg HSPRN PRN ORAL Insomnia 07/09/19 20:00 07/16/19 19:59 Last 24 Hour Vital Signs Date Time Temp Pulse Resp B/P (MAP) Pulse Ox O2 Delivery O2 Flow Rate FiO2 07/13/19 04:00 60 07/13/19 04:00 98.0 60 18 137/70 (92) 99 07/13/19 00:00 98.2 60 18 120/70 (87) 100 07/13/19 00:00 60 07/12/19 21:00 Room Air 07/12/19 20:00 98.1 60 18 133/72 (92) 100 07/12/19 20:00 60 07/12/19 16:00 60 07/12/19 16:00 97.2 60 18 137/74 (95) 100 07/12/19 12:00 60 07/12/19 12:00 97.6 60 18 135/90 (105) 99 07/12/19 09:00 Room Air 07/12/19 08:00 97.8 59 18 138/74 (95) 98 07/12/19 08:00 60 07/12/19 04:00 97.6 79 19 130/59 (82) 98 07/12/19 04:00 60 07/12/19 00:00 98.0 63 17 119/59 (79) 100 07/12/19 00:00 59 07/11/19 21:00 Room Air 07/11/19 20:00 98.1 60 18 121/57 (78) 100 07/11/19 20:00 60 07/11/19 16:00 58 07/11/19 16:00 98.1 65 19 137/64 (88) 100 07/11/19 12:10 97.5 07/11/19 12:00 96.7 60 20 109/65 (80) 100 07/11/19 12:00 60 07/11/19 09:00 Room Air 07/11/19 08:00 97.5 60 18 127/62 (83) 100 07/11/19 08:00 60 Intake and Output 07/12/19 07/13/19 19:00 07:00 Intake Total 360 ml Output Total 300 ml Balance 60 ml Intake Oral 360 ml Output Urine Total 200 ml Stool Total 100 ml # Voids 1 # Bowel Movements 2 Labs Test 07/10/19 09:50 07/11/19 05:48 07/11/19 10:00 07/12/19 07:14 White Blood Count 6.3 K/UL (4.8-10.8) 7.2 K/UL (4.8-10.8) 8.3 K/UL (4.8-10.8) Red Blood Count 4.07 M/UL (4.70-6.10) 4.03 M/UL (4.70-6.10) 4.20 M/UL (4.70-6.10) Hemoglobin 12.6 G/DL (14.2-18.0) 12.7 G/DL (14.2-18.0) 13.1 G/DL (14.2-18.0) Hematocrit 37.3 % (42.0-52.0) 36.5 % (42.0-52.0) 37.6 % (42.0-52.0) Mean Corpuscular Volume 91 FL (80-99) 91 FL (80-99) 90 FL (80-99) Mean Corpuscular Hemoglobin 30.8 PG (27.0-31.0) 31.6 PG (27.0-31.0) 31.3 PG (27.0-31.0) Mean Corpuscular Hemoglobin Concent 33.7 G/DL (32.0-36.0) 34.9 G/DL (32.0-36.0) 34.9 G/DL (32.0-36.0) Red Cell Distribution Width 11.5 % (11.6-14.8) 10.8 % (11.6-14.8) 10.2 % (11.6-14.8) Platelet Count 246 K/UL (150-450) 185 K/UL (150-450) 226 K/UL (150-450) Mean Platelet Volume 5.9 FL (6.5-10.1) 5.7 FL (6.5-10.1) 5.8 FL (6.5-10.1) Neutrophils (%) (Auto) 79.0 % (45.0-75.0) 78.2 % (45.0-75.0) 82.9 % (45.0-75.0) Lymphocytes (%) (Auto) 15.0 % (20.0-45.0) 14.9 % (20.0-45.0) 11.0 % (20.0-45.0) Monocytes (%) (Auto) 5.5 % (1.0-10.0) 6.1 % (1.0-10.0) 5.7 % (1.0-10.0) Eosinophils (%) (Auto) 0.1 % (0.0-3.0) 0.2 % (0.0-3.0) 0.1 % (0.0-3.0) Basophils (%) (Auto) 0.5 % (0.0-2.0) 0.5 % (0.0-2.0) 0.4 % (0.0-2.0) Sodium Level 145 MMOL/L (136-145) 147 MMOL/L (136-145) Potassium Level 2.0 MMOL/L (3.5-5.1) 2.0 MMOL/L (3.5-5.1) Chloride Level 112 MMOL/L (98-107) 113 MMOL/L (98-107) Carbon Dioxide Level 24 MMOL/L (21-32) 22 MMOL/L (21-32) Anion Gap 9 mmol/L (5-15) 12 mmol/L (5-15) Blood Urea Nitrogen 19 mg/dL (7-18) 15 mg/dL (7-18) Creatinine 1.0 MG/DL (0.55-1.30) 1.0 MG/DL (0.55-1.30) Estimat Glomerular Filtration Rate mL/min (>60) mL/min (>60) Glucose Level 95 MG/DL (74-106) 82 MG/DL (74-106) Lactic Acid Level 0.40 mmol/L (0.4-2.0) Calcium Level 8.3 MG/DL (8.5-10.1) 7.7 MG/DL (8.5-10.1) Troponin I 0.100 ng/mL (0.000-0.056) 0.082 ng/mL (0.000-0.056) Pro-B-Type Natriuretic Peptide 1645 pg/mL (0-125) 2650 pg/mL (0-125) Prostate Specific Antigen 0.84 ng/mL (0.13-4.0) Phosphorus Level 2.5 MG/DL (2.5-4.9) Magnesium Level 1.9 MG/DL (1.8-2.4) Total Bilirubin 0.3 MG/DL (0.2-1.0) Aspartate Amino Transf (AST/SGOT) 19 U/L (15-37) Alanine Aminotransferase (ALT/SGPT) 18 U/L (12-78) Alkaline Phosphatase 65 U/L (46-116) C-Reactive Protein, Quantitative < 0.4 mg/dL (0.00-0.90) Total Protein 5.6 G/DL (6.4-8.2) Albumin 2.2 G/DL (3.4-5.0) Globulin 3.4 g/dL Albumin/Globulin Ratio 0.6 (1.0-2.7) Urine Color Pale yellow Urine Appearance Clear Urine pH 5 (4.5-8.0) Urine Specific [place] 1.015 (1.005-1.035) Urine Protein 1+ (NEGATIVE) Urine Glucose (UA) Negative (NEGATIVE) Urine Ketones Negative (NEGATIVE) Urine Blood 1+ (NEGATIVE) Urine Nitrite Negative (NEGATIVE) Urine Bilirubin Negative (NEGATIVE) Urine Urobilinogen Normal MG/DL (0.0-1.0) Urine Leukocyte Esterase 3+ (NEGATIVE) Urine RBC 0-2 /HPF (0 - 0) Urine WBC 5-10 /HPF (0 - 0) Urine Squamous Epithelial Cells Occasional /LPF Urine Bacteria Occasional /HPF (NONE) Urine Yeast Few /HPF (NONE) Test 07/12/19 09:00 Sodium Level 145 MMOL/L (136-145) Potassium Level 1.7 MMOL/L (3.5-5.1) Chloride Level 110 MMOL/L (98-107) Carbon Dioxide Level 26 MMOL/L (21-32) Anion Gap 10 mmol/L (5-15) Blood Urea Nitrogen 10 mg/dL (7-18) Creatinine 1.0 MG/DL (0.55-1.30) Estimat Glomerular Filtration Rate mL/min (>60) Glucose Level 97 MG/DL (74-106) Uric Acid 6.4 MG/DL (2.6-7.2) Calcium Level 7.7 MG/DL (8.5-10.1) Phosphorus Level 2.5 MG/DL (2.5-4.9) Magnesium Level 1.7 MG/DL (1.8-2.4) Total Bilirubin 0.5 MG/DL (0.2-1.0) Aspartate Amino Transf (AST/SGOT) 22 U/L (15-37) Alanine Aminotransferase (ALT/SGPT) 19 U/L (12-78) Alkaline Phosphatase 70 U/L (46-116) Total Creatine Kinase 102 U/L (26-308) Total Protein 5.9 G/DL (6.4-8.2) Albumin 2.3 G/DL (3.4-5.0) Globulin 3.6 g/dL Albumin/Globulin Ratio 0.6 (1.0-2.7) Thyroid Stimulating Hormone (TSH) 3.816 uiU/mL (0.358-3.740) Height (Feet): 5 Height (Inches): 10.00 Weight (Pounds): 160 Objective PE General: alert, non-toxic, thin, Chronically Ill HEENT: poor dentition Resp: lungs clear, normal breath sounds CV: regular rate, rhythm GI: normal inspection, non tender, no guarding, no rebound, distended+ : no CVA tenderness ++ rectal tube Sterling Singletary MD Jul 13, 2019 05:42
--- NOTE | 2019-07-13 07:50 | NUR ---
HAND-OFF: Report given to ANA PAULA Raza. Endorsed plan of care.
[2019-07-13 08:00] VITALS: BP 131/78
[2019-07-13] MEDS: Mesalamine 400mg cap ORAL SCH ×3 (08:34→18:00)
[2019-07-13] MEDS: Spironolactone 50mg tab ORAL SCH ×2 (08:34→22:03)
[2019-07-13] MEDS: Heparin 5000 units/ml inj SUBQ SCH ×2 (08:37→22:05)
--- NOTE | 2019-07-13 09:01 | NUR ---
NURSE NOTES: Received report from Yaron. patient found with rectal tube leaking increased amount compared to previous shift. Previous RN report on reinforcing overnite. Hygiene prvided and tube secured with tape and optifoam to protect skinfrom device. Patient denies pain to leg. AOX4 with calm affect. At shift change, dressing to R lower leg changed and pictures taken. Copious drainage noted with large areas of skin peeling off. Xeroform and abd placed per orders. Previous shift, when infiltration noted , at approximately 1130am 07/12, skin was intact. At that time on 07/12, wound RN was at bedside to eval other skin wounds--see her note. Blisters noted around calf with loose skin and wound RN aware. Skin was intact until approximately 630pm on 07/12. At change of shift with Yaron, RN one blister posterior noted to have opened (see previous note of this RN) with drainage. At that time on 07/12 Dr Dodson notified of open blister and drainage from IV site. Dr. Dodson ordered dressings of xeroform and abd pads with leg elevated on pillow. This morning 07/13 8am bindery helper called wound RN for eval of R lower leg now that blisters have opened--see pictures from this morning. IV site on R forearm placed by bindery helper on 07/12 before starting IV administration of potassium. patient received no potassium to leg IV per this RN on 07/12. R forearm IV site patent with no redness or warmth and no swelling all shift yesterday (07/12) for this RN. Today (07/13) IV to R forearm appears the same--clean, dry, intact, patent and asymptomatic.
--- NOTE | 2019-07-13 09:16 | NUR ---
NURSE NOTES: Irrigation Engineer unable to obtain blood sample this morning--she stated another home paraprofessional will continue to try.
--- NOTE | 2019-07-13 09:20 | NUR ---
NURSE NOTES: Dr Chand returned call at 920am regarding wound on leg--ordered consult and inform to Drs: Renetta Coronel, and Joanna. Recalled Dr Chand just at moment of hanging up from talking to suggest PICC line, as done in previuos messages on 07/12. Addendum: 07/13/19 at 0945 by Vincent Dennis RN Dr Dodson at bedside to eval patient and saw pictures of wound--no new orders : continue with dressing changed as ordered previously. Dr Avilez tel message left [phone] Marshall tel message left [phone]
--- NOTE | 2019-07-13 09:30 | NUR ---
NURSE NOTES:WOUND CARE FOLLOW-UP NOTES: PT assessed along with charge nurse,and Primary nurse of pt. R lower ext edematous with multiple intact and and open serous blisters secondary to edema and IV infiltrate. No elevation in skin temp noted . Wound beds of open blisters moist -viable. Wounds cleansed with Saline. Blisters covered with Xeroform and wrapped with Kerlix from Base of toes to below knee. All wound prevention protocols continued as ordered. Recommendations: Cleanse RLE with Saline.Cover Blisters with Xeroform ,Apply ABD pads. Wrap with Kerlix from Base of toes to below knee Daily and prn. Apply Moisture Barrier Paste to Sacrum. Cover with Optifoam drsg. Change every 3 days and prn. Apply Cavilon to R and L hips. Cover each hip with Optifoam drsgs. Change every 7 days and prn. Apply Cavilon Skin Barrier to Both heels. Cover each heel with Optifoam drsg. Change every 7 days and Prn. Reposition at least every 2hours or as tolerated. Off-load heels with pillow.
[2019-07-13 09:38] LABS: HEMATOCRIT 41.7 % (42.0-52.0); HEMOGLOBIN 14.7 G/DL (14.2-18.0); MEAN CORPUSCULAR VOLUME 89 FL (80-99); PLATELET COUNT 263 K/UL (150-450); RED BLOOD COUNT 4.69 M/UL (4.70-6.10); RED CELL DISTRIBUTION WIDTH 11.3 % (11.6-14.8); WHITE BLOOD COUNT 11.3 K/UL (4.8-10.8)
[2019-07-13 09:54] LABS: ALANINE AMINOTRANSFERASE 18 U/L (12-78); ALBUMIN 2.2 G/DL (3.4-5.0); ALBUMIN/GLOBULIN RATIO 0.6 (1.0-2.7); ALKALINE PHOSPHATASE 69 U/L (46-116); ANION GAP 10 mmol/L (5-15); ASPARTATE AMINO TRANSFERASE 21 U/L (15-37); BILIRUBIN,TOTAL 0.5 MG/DL (0.2-1.0); BLOOD UREA NITROGEN 7 mg/dL (7-18); CALCIUM 7.5 MG/DL (8.5-10.1); CARBON DIOXIDE 23 MMOL/L (21-32); CHLORIDE 109 MMOL/L (98-107); PHOSPHORUS 1.8 MG/DL (2.5-4.9); SODIUM 142 MMOL/L (136-145)
[2019-07-13 09:56] LABS: POTASSIUM 2.1 MMOL/L (3.5-5.1)
--- NOTE | 2019-07-13 10:56 | NUR ---
NURSE NOTES: Message for Dr Sher at 1030am for reevaluation of rectal tube--leakage continuing as previous (see previous notes) Addendum: 07/13/19 at 1259 by Vincent Dennis RN COLE [facility] at [facility] to assess patient -- stated that rectal tube was working properly adn d/t the longer length of his rectal cath, leaking may happen and that "removing it or replacing it with a flexi seal would defeat the purpose". ADJUNCT INSTRUCTOR CHEMISTRY advised to wrap with towels and provide frequent hygiene.
--- NOTE | 2019-07-13 10:56 | NUR ---
NURSE NOTES: 1045am Spoke with Dr Renetta Avilez to ensure consult for wound (per Dr smith instruction)
--- NOTE | 2019-07-13 11:27 | Cardiac Electrophysiology PN ---
Assessment/Plan Assessment/Plan 1. Troponin leak. No chest pain or SOB. EKG is ventricularly paced and Echo nl EF 2. Status post [facility] [place] pacer. Interrogation showed normal pacemaker function. 3. Severe hypokalemia with Potassium as low as 1.7. On Aldactone [address] Marshall ordered more iv and po again. May need central line 4. Hypernatremia. The patient is getting IV fluid. 5. Possible bowel obstruction. CT scan of abdomen and pelvis showed marked distention of the sigmoid colon. No evidence of free intraperitoneal air or fluid. No small bowel obstruction. Further evaluation by Dr. Smith. DW RN Subjective Subjective No CP or SOB . Rectal tube is draining heavily. K still 2.2 despite iv replacement. RN at bedside Objective Last 24 Hour Vital Signs Date Time Temp Pulse Resp B/P (MAP) Pulse Ox O2 Delivery O2 Flow Rate FiO2 07/13/19 08:00 96.5 61 20 131/78 (95) 97 07/13/19 08:00 60 07/13/19 04:00 60 07/13/19 04:00 98.0 60 18 137/70 (92) 99 07/13/19 00:00 98.2 60 18 120/70 (87) 100 07/13/19 00:00 60 07/12/19 21:00 Room Air 07/12/19 20:00 98.1 60 18 133/72 (92) 100 07/12/19 20:00 60 07/12/19 16:00 60 07/12/19 16:00 97.2 60 18 137/74 (95) 100 07/12/19 12:00 60 07/12/19 12:00 97.6 60 18 135/90 (105) 99 Intake and Output 07/12/19 07/13/19 19:00 07:00 Intake Total 360 ml Output Total 300 ml 500 ml Balance 60 ml -500 ml Intake Oral 360 ml Output Urine Total 200 ml 500 ml Stool Total 100 ml # Voids 1 # Bowel Movements 2 5 Laboratory Tests Test 07/13/19 09:10 White Blood Count 11.3 K/UL (4.8-10.8) H Red Blood Count 4.69 M/UL (4.70-6.10) L Hemoglobin 14.7 G/DL (14.2-18.0) Hematocrit 41.7 % (42.0-52.0) L Mean Corpuscular Volume 89 FL (80-99) Mean Corpuscular Hemoglobin 31.3 PG (27.0-31.0) H Mean Corpuscular Hemoglobin Concent 35.2 G/DL (32.0-36.0) Red Cell Distribution Width 11.3 % (11.6-14.8) L Platelet Count 263 K/UL (150-450) Mean Platelet Volume 5.4 FL (6.5-10.1) L Neutrophils (%) (Auto) % (45.0-75.0) Lymphocytes (%) (Auto) % (20.0-45.0) Monocytes (%) (Auto) % (1.0-10.0) Eosinophils (%) (Auto) % (0.0-3.0) Basophils (%) (Auto) % (0.0-2.0) Differential Total Cells Counted 100 Neutrophils % (Manual) 88 % (45-75) H Lymphocytes % (Manual) 6 % (20-45) L Monocytes % (Manual) 5 % (1-10) Eosinophils % (Manual) 1 % (0-3) Basophils % (Manual) 0 % (0-2) Band Neutrophils 0 % (0-8) Platelet Estimate Adequate Platelet Morphology Normal Red Blood Cell Morphology Normal Sodium Level 142 MMOL/L (136-145) Potassium Level 2.1 MMOL/L (3.5-5.1) *L Chloride Level 109 MMOL/L (98-107) H Carbon Dioxide Level 23 MMOL/L (21-32) Anion Gap 10 mmol/L (5-15) Blood Urea Nitrogen 7 mg/dL (7-18) Creatinine 1.0 MG/DL (0.55-1.30) Estimat Glomerular Filtration Rate mL/min (>60) Glucose Level 162 MG/DL (74-106) H Calcium Level 7.5 MG/DL (8.5-10.1) L Phosphorus Level 1.8 MG/DL (2.5-4.9) L Magnesium Level 2.5 MG/DL (1.8-2.4) H Total Bilirubin 0.5 MG/DL (0.2-1.0) Aspartate Amino Transf (AST/SGOT) 21 U/L (15-37) Alanine Aminotransferase (ALT/SGPT) 18 U/L (12-78) Alkaline Phosphatase 69 U/L (46-116) Total Protein 5.8 G/DL (6.4-8.2) L Albumin 2.2 G/DL (3.4-5.0) L Globulin 3.6 g/dL Albumin/Globulin Ratio 0.6 (1.0-2.7) L Microbiology Date/Time Source Procedure Growth Status 07/11/19 10:00 Urine,Clean Catch Urine Culture - Preliminary Gram Negative Bacillus 1 Resulted Objective HEAD AND NECK: No JVD. LUNGS: Clear. CARDIOVASCULAR: Regular S1 and S2 with no gallop. 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 ABDOMEN: Distended. EXTREMITIES: No pitting edema. Cedric Bernard MD Jul 13, 2019 11:27
--- NOTE | 2019-07-13 11:27 | Diagnostic Imaging Report ---
APPROVED REPORT CPT Code: 70115 Present Symptoms Lower Extremity Edema: Right RIGHT LEG: Venous imaging reveals a patent deep venous system. There is no evidence of thrombus within the femoral, popliteal or tibial segments. The greater saphenous vein is within normal limits. Doppler indicates normal spontaneous flow within these segments.
--- NOTE | 2019-07-13 11:37 | NUR ---
NURSE NOTES:1130am Dr Avilez authorized to insert PICC from his perspective.
[2019-07-13] MEDS ORDERED: Heparin1,000 units/500ml Premix(Conc:2 units/ml) IV ONE (11:45)
[2019-07-13] MEDS ORDERED: Lidocaine 1% Plain 30 ml INJ ONE (11:45)
[2019-07-13 12:00] VITALS: BP 118/66
[2019-07-13] MEDS ORDERED: Heparin1,000 units/500ml Premix(Conc:2 units/ml) IV PRN (12:00)
[2019-07-13] MEDS ORDERED: Lidocaine 1% Plain 30 ml INJ PRN (12:00)
[2019-07-13] MEDS ORDERED: Potassium Phosphate 30 MM in NS 275 ML IV ONE (12:00)
--- NOTE | 2019-07-13 12:14 | NUR ---
NURSE NOTES: Consent obtained for PICC and placed in chart. Explained prcedure to patient, Mando Soliman, who consented verbally but was unable to sign. Patient is aox3. Called spouse, Tana Soliman, when Rn Internship recommended to ensure proper consent. witnessed telephone consent with ANA PAULA Chowdhury (see consent form). Spouse repeated that she understood what a PICC is and stated "Yes, I know his veins are real bad--lots of problems with them, better to do this" Addendum: 07/13/19 at 2106 by Vincent Dennis RN At time of consent , also informed , Tana, of wound to leg and skin dressings applied. Later in the afternoon when was at bedside, this RN showed her the dressed leg and explained more about the precautions with IV abx and special dressings to prevent infection.
--- NOTE | 2019-07-13 12:23 | Surgery Progress Note ---
Surgery Progress Note Subjective Symptoms: improved, tolerating diet, passing flatus, BM Objective Last 24 Hour Vital Signs Date Time Temp Pulse Resp B/P (MAP) Pulse Ox O2 Delivery O2 Flow Rate FiO2 07/13/19 09:00 Room Air 07/13/19 08:00 96.5 61 20 131/78 (95) 97 07/13/19 08:00 60 07/13/19 04:00 60 07/13/19 04:00 98.0 60 18 137/70 (92) 99 07/13/19 00:00 98.2 60 18 120/70 (87) 100 07/13/19 00:00 60 07/12/19 21:00 Room Air 07/12/19 20:00 98.1 60 18 133/72 (92) 100 07/12/19 20:00 60 07/12/19 16:00 60 07/12/19 16:00 97.2 60 18 137/74 (95) 100 I&O Intake and Output 07/12/19 07/13/19 19:00 07:00 Intake Total 360 ml Output Total 300 ml 500 ml Balance 60 ml -500 ml Intake Oral 360 ml Output Urine Total 200 ml 500 ml Stool Total 100 ml # Voids 1 # Bowel Movements 2 5 Cardiovascular: RSR Respiratory: clear Abdomen: soft, non-tender, non-distended, decreased bowel sounds Extremities: no edema, no tenderness, no cyanosis Laboratory Tests Test 07/13/19 09:10 White Blood Count 11.3 K/UL (4.8-10.8) H Red Blood Count 4.69 M/UL (4.70-6.10) L Hemoglobin 14.7 G/DL (14.2-18.0) Hematocrit 41.7 % (42.0-52.0) L Mean Corpuscular Volume 89 FL (80-99) Mean Corpuscular Hemoglobin 31.3 PG (27.0-31.0) H Mean Corpuscular Hemoglobin Concent 35.2 G/DL (32.0-36.0) Red Cell Distribution Width 11.3 % (11.6-14.8) L Platelet Count 263 K/UL (150-450) Mean Platelet Volume 5.4 FL (6.5-10.1) L Neutrophils (%) (Auto) % (45.0-75.0) Lymphocytes (%) (Auto) % (20.0-45.0) Monocytes (%) (Auto) % (1.0-10.0) Eosinophils (%) (Auto) % (0.0-3.0) Basophils (%) (Auto) % (0.0-2.0) Differential Total Cells Counted 100 Neutrophils % (Manual) 88 % (45-75) H Lymphocytes % (Manual) 6 % (20-45) L Monocytes % (Manual) 5 % (1-10) Eosinophils % (Manual) 1 % (0-3) Basophils % (Manual) 0 % (0-2) Band Neutrophils 0 % (0-8) Platelet Estimate Adequate Platelet Morphology Normal Red Blood Cell Morphology Normal Sodium Level 142 MMOL/L (136-145) Potassium Level 2.1 MMOL/L (3.5-5.1) *L Chloride Level 109 MMOL/L (98-107) H Carbon Dioxide Level 23 MMOL/L (21-32) Anion Gap 10 mmol/L (5-15) Blood Urea Nitrogen 7 mg/dL (7-18) Creatinine 1.0 MG/DL (0.55-1.30) Estimat Glomerular Filtration Rate mL/min (>60) Glucose Level 162 MG/DL (74-106) H Calcium Level 7.5 MG/DL (8.5-10.1) L Phosphorus Level 1.8 MG/DL (2.5-4.9) L Magnesium Level 2.5 MG/DL (1.8-2.4) H Total Bilirubin 0.5 MG/DL (0.2-1.0) Aspartate Amino Transf (AST/SGOT) 21 U/L (15-37) Alanine Aminotransferase (ALT/SGPT) 18 U/L (12-78) Alkaline Phosphatase 69 U/L (46-116) Total Protein 5.8 G/DL (6.4-8.2) L Albumin 2.2 G/DL (3.4-5.0) L Globulin 3.6 g/dL Albumin/Globulin Ratio 0.6 (1.0-2.7) L Plan Problems: (1) Abdominal distention Assessment & Plan: similar to prior but now patient with more weight loss so distention more prominent soft, no perforation, non tender, but still massively distended discussed with patient at bedside. still having small multiple BM and flatus. no n/v he has functional colonic and bowel problem and not true obstruction discussed consideration for decompression and surgery he states currently he is not considering surgery as an option decompressed by GI with rectal tube stable will monitor Trial oral liquid diet will follow with recs thank you There is massive distention of the sigmoid colon with more mild upstream distention of the remainder of the colon. The sigmoid colon measures up to 14 cm in AP dimension. Sigmoid is dilated to a clear transition point just to the right of midline in the pelvis where there is abnormal twisting/swirling of the mesentery around the narrow portion of sigmoid colon. As on the prior exam there is no proximal transition point or narrowing. There is no evidence of free intraperitoneal air or fluid. Some contrast is noted within the rectum. Uncertain if this was administered prior to the current study or if this represents residual from a prior contrast administration. There is a small hiatal hernia. There is thickening of the distal esophagus as well which may suggest esophagitis. There is no evidence of small bowel obstruction. There is mass effect on the intra-abdominal organs related to the markedly distended sigmoid colon. Liver, spleen grossly unremarkable. There is an unchanged indeterminate nodule in the lateral limb of the right adrenal gland which measures up to 1.1 cm. Stable in size compared to the prior exam. There is a large cyst in the upper pole left kidney which measures 6.2 cm. Smaller simple appearing cysts also noted in the left. There is no hydronephrosis or urinary tract stone. Pancreas and bladder grossly unremarkable. The prostate is enlarged and heterogeneous. Abdominal aorta is infrarenal abdominal aorta measures up to 3 cm AP with moderate atherosclerotic calcification. There are degenerative changes in the spine and bilateral hips. There is patchy sclerosis in the visualized osseous structures. No acute fracture. IMPRESSION: * Marked distention of the sigmoid colon up to a abrupt transition in the distal sigmoid where there is swirling in the mesentery concerning for volvulus. Similar to the prior exam no proximal transition point or narrowing is noted, instead there is upstream dilatation of the remainder of the colon. Recommend surgical evaluation and/or colonoscopy. * No evidence of free intraperitoneal air or fluid. * No small bowel obstruction. * Small hiatal hernia with thickening of the distal esophagus suggesting esophagitis. Consider correlation with endoscopy. 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 * Indeterminate right adrenal nodule measuring 1.1 cm, stable compared to the prior exam. * Left renal cysts, largest measures approximately 6.3 cm diameter. * Enlarged and heterogeneous prostate which may be on the basis of BPH. Correlation with prostate exam and PSA however is recommended. * Unusual osseous mineralization with patchy sclerosis, also seen previously and unchanged. This may be on the basis of chronic osteoporotic changes. Consider further evaluation with bone scan. (2) Ileus (3) Gastroparesis (4) Failure to thrive Additional Comments needs central line k replacement trend labs Chava Smith Jul 13, 2019 12:23
--- NOTE | 2019-07-13 12:50 | GI Progress Note ---
Assessment/Plan Problems: (1) Dehydration ICD Codes: E86.0 - Dehydration SNOMED: 95051897 (2) Failure to thrive SNOMED: 14767700 Qualifiers: Qualified Codes: R62.7 - Adult failure to thrive (3) Abdominal distention ICD Codes: R14.0 - Abdominal distension (gaseous) SNOMED: 04440376 (4) Gastroparesis ICD Codes: K31.84 - Gastroparesis SNOMED: 284900334 Status: progressing Status Narrative Discussed with Dr. Ortiz. Assessment/Plan rectal tube for colonic decompression correct K serial imaging prn advance to full liquid diet follow labs The patient was seen and examined at bedside and all new and available data was reviewed in the patients chart. I agree with the above findings, impression and plan. (Patient seen earlier today. Signature stamp does not reflect patient encounter time.). - Tavares Ortiz MD Subjective Gastrointestinal/Abdominal: Reports: no symptoms Objective Last 24 Hour Vital Signs Date Time Temp Pulse Resp B/P (MAP) Pulse Ox O2 Delivery O2 Flow Rate FiO2 07/13/19 12:00 97.7 61 20 118/66 (83) 98 07/13/19 12:00 60 07/13/19 09:00 Room Air 07/13/19 08:00 96.5 61 20 131/78 (95) 97 07/13/19 08:00 60 07/13/19 04:00 60 07/13/19 04:00 98.0 60 18 137/70 (92) 99 07/13/19 00:00 98.2 60 18 120/70 (87) 100 07/13/19 00:00 60 07/12/19 21:00 Room Air 07/12/19 20:00 98.1 60 18 133/72 (92) 100 07/12/19 20:00 60 07/12/19 16:00 60 07/12/19 16:00 97.2 60 18 137/74 (95) 100 Intake and Output 07/12/19 07/13/19 19:00 07:00 Intake Total 360 ml Output Total 300 ml 500 ml Balance 60 ml -500 ml Intake Oral 360 ml Output Urine Total 200 ml 500 ml Stool Total 100 ml # Voids 1 # Bowel Movements 2 5 Laboratory Tests Test 07/13/19 09:10 White Blood Count 11.3 K/UL (4.8-10.8) H Red Blood Count 4.69 M/UL (4.70-6.10) L Hemoglobin 14.7 G/DL (14.2-18.0) Hematocrit 41.7 % (42.0-52.0) L Mean Corpuscular Volume 89 FL (80-99) Mean Corpuscular Hemoglobin 31.3 PG (27.0-31.0) H Mean Corpuscular Hemoglobin Concent 35.2 G/DL (32.0-36.0) Red Cell Distribution Width 11.3 % (11.6-14.8) L Platelet Count 263 K/UL (150-450) Mean Platelet Volume 5.4 FL (6.5-10.1) L Neutrophils (%) (Auto) % (45.0-75.0) Lymphocytes (%) (Auto) % (20.0-45.0) Monocytes (%) (Auto) % (1.0-10.0) Eosinophils (%) (Auto) % (0.0-3.0) Basophils (%) (Auto) % (0.0-2.0) Differential Total Cells Counted 100 Neutrophils % (Manual) 88 % (45-75) H Lymphocytes % (Manual) 6 % (20-45) L Monocytes % (Manual) 5 % (1-10) Eosinophils % (Manual) 1 % (0-3) Basophils % (Manual) 0 % (0-2) Band Neutrophils 0 % (0-8) Platelet Estimate Adequate Platelet Morphology Normal Red Blood Cell Morphology Normal Sodium Level 142 MMOL/L (136-145) Potassium Level 2.1 MMOL/L (3.5-5.1) *L Chloride Level 109 MMOL/L (98-107) H Carbon Dioxide Level 23 MMOL/L (21-32) Anion Gap 10 mmol/L (5-15) Blood Urea Nitrogen 7 mg/dL (7-18) Creatinine 1.0 MG/DL (0.55-1.30) Estimat Glomerular Filtration Rate mL/min (>60) Glucose Level 162 MG/DL (74-106) H Calcium Level 7.5 MG/DL (8.5-10.1) L Phosphorus Level 1.8 MG/DL (2.5-4.9) L Magnesium Level 2.5 MG/DL (1.8-2.4) H Total Bilirubin 0.5 MG/DL (0.2-1.0) Aspartate Amino Transf (AST/SGOT) 21 U/L (15-37) Alanine Aminotransferase (ALT/SGPT) 18 U/L (12-78) Alkaline Phosphatase 69 U/L (46-116) Total Protein 5.8 G/DL (6.4-8.2) L Albumin 2.2 G/DL (3.4-5.0) L Globulin 3.6 g/dL Albumin/Globulin Ratio 0.6 (1.0-2.7) L Height (Feet): 5 Height (Inches): 10.00 Weight (Pounds): 160 General Appearance: WD/WN, no apparent distress, alert Cardiovascular: normal rate Respiratory/Chest: normal breath sounds, no respiratory distress Abdominal Exam: normal bowel sounds, non tender, soft, other - rectal tube Extremities: non-tender Cristina Galloway NP Jul 13, 2019 12:50
--- NOTE | 2019-07-13 13:19 | Nephrology Progress Note ---
Assessment/Plan Problem List: (1) Hypokalemia Assessment: due to diarrhea (2) Dehydration (3) Failure to thrive (4) Elevated troponin (5) Abdominal distention Assessment HypoKalemia Severe UTI HTN Ileus FFT troponin Leak Pacemaker Plan K supplement IV and PO resume Aldactone resume Asacol monitor lytes per orders check TSH Subjective ROS Limited/Unobtainable: No Constitutional: Reports: malaise Objective Objective Last 24 Hour Vital Signs Date Time Temp Pulse Resp B/P (MAP) Pulse Ox O2 Delivery O2 Flow Rate FiO2 07/13/19 12:00 97.7 61 20 118/66 (83) 98 07/13/19 12:00 60 07/13/19 09:00 Room Air 07/13/19 08:00 96.5 61 20 131/78 (95) 97 07/13/19 08:00 60 07/13/19 04:00 60 07/13/19 04:00 98.0 60 18 137/70 (92) 99 07/13/19 00:00 98.2 60 18 120/70 (87) 100 07/13/19 00:00 60 07/12/19 21:00 Room Air 07/12/19 20:00 98.1 60 18 133/72 (92) 100 07/12/19 20:00 60 07/12/19 16:00 60 07/12/19 16:00 97.2 60 18 137/74 (95) 100 Intake and Output 07/12/19 07/13/19 19:00 07:00 Intake Total 360 ml Output Total 300 ml 500 ml Balance 60 ml -500 ml Intake Oral 360 ml Output Urine Total 200 ml 500 ml Stool Total 100 ml # Voids 1 # Bowel Movements 2 5 Laboratory Tests 07/13/19 09:10: White Blood Count 11.3H, Red Blood Count 4.69L, Hemoglobin 14.7, Hematocrit 41.7L, Mean Corpuscular Volume 89, Mean Corpuscular Hemoglobin 31.3H, Mean Corpuscular Hemoglobin Concent 35.2, Red Cell Distribution Width 11.3L, Platelet Count 263, Mean Platelet Volume 5.4L, Neutrophils (%) (Auto) , Lymphocytes (%) (Auto) , Monocytes (%) (Auto) , Eosinophils (%) (Auto) , Basophils (%) (Auto) , Differential Total Cells Counted 100, Neutrophils % ( Manual) 88H, Lymphocytes % (Manual) 6L, Monocytes % (Manual) 5, Eosinophils % ( Manual) 1, Basophils % (Manual) 0, Band Neutrophils 0, Platelet Estimate Adequate, Platelet Morphology Normal, Red Blood Cell Morphology Normal, Sodium Level 142, Potassium Level 2.1*L, Chloride Level 109H, Carbon Dioxide Level 23, Anion Gap 10, Blood Urea Nitrogen 7, Creatinine 1.0, Estimat Glomerular Filtration Rate , Glucose Level 162H, Calcium Level 7.5L, Phosphorus Level 1.8L , Magnesium Level 2.5H, Total Bilirubin 0.5, Aspartate Amino Transf (AST/SGOT) 21, Alanine Aminotransferase (ALT/SGPT) 18, Alkaline Phosphatase 69, Total Protein 5.8L, Albumin 2.2L, Globulin 3.6, Albumin/Globulin Ratio 0.6L Height (Feet): 5 Height (Inches): 10.00 Weight (Pounds): 160 General Appearance: no apparent distress Cardiovascular: normal rate Respiratory/Chest: decreased breath sounds Abdomen: soft, absent bowel sounds Herve Marshall MD Jul 13, 2019 13:19
[2019-07-13] MEDS ORDERED: cefTRIAXone 1 GM in D5W 55 ML IVPB SCH (14:00)
--- NOTE | 2019-07-13 14:50 | NUR ---
RIGHT UPPER EXTREMITY PICC LINE PLACED BY DR. LAURA MANN. FA
[2019-07-13 16:00] VITALS: BP 101/57
--- NOTE | 2019-07-13 16:23 | Diagnostic Imaging Report ---
Indications: Needs long-term IV access Technique: Ultrasound confirms patent compressible right brachial vein. Total sterile technique, including sterile probe cover and sterile gel, hat, mask, sterile gown, large sterile drape, and preparation with 2% chlorhexidine utilized. Local anesthesia with 1% lidocaine. Under real-time ultrasound guidance, puncture ] vein using 21-gauge needle, documented and archived, passage 0.018 guidewire under direct fluoroscopy, which was used to determine appropriate catheter length, exchange for 4 Dutch peel-away sheath. 4 Dutch Bard dual-lumen power PICC cut to 37 cm. It was inserted through the peel-away sheath. Peel-away sheath and guidewire removed. Catheter fixed to the skin. Both catheter ports aspirated and flushed. Patient tolerated procedure well, without immediate complication. Digital radiograph documents satisfactory catheter tip position, at the cavoatrial junction. Total fluoroscopy time 33 seconds. Total dose area product 0.25514 mGym2 Total number of images: 1 Impression: Successful placement of right arm PICC under sonographic and fluoroscopic guidance, as described above.
--- NOTE | 2019-07-13 16:29 | General Progress Note ---
Assessment/Plan Problem List: (1) Ileus ICD Codes: K56.7 - Ileus, unspecified SNOMED: 063787796 (2) HTN (hypertension) ICD Codes: I10 - Essential (primary) hypertension SNOMED: 08686461 (3) Volvulus ICD Codes: K56.2 - Volvulus SNOMED: 7420951 (4) Abdominal distention ICD Codes: R14.0 - Abdominal distension (gaseous) SNOMED: 10462416 (5) Elevated troponin ICD Codes: R79.89 - Other specified abnormal findings of blood chemistry SNOMED: 457846422, 982045432, 213457956 (6) Hypokalemia ICD Codes: E87.6 - Hypokalemia SNOMED: 12178771 Status: progressing Assessment/Plan: severe hypokalemia improving cellulitis of le infiltrated iv consulted dr rueda for abx /id 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 dehydration kcl replacement per dr kemp Subjective ROS Limited/Unobtainable: Yes Allergies: Coded Allergies: No Known Allergies (Unverified , 04/22/17) Objective Last 24 Hour Vital Signs Date Time Temp Pulse Resp B/P (MAP) Pulse Ox O2 Delivery O2 Flow Rate FiO2 07/13/19 12:00 97.7 61 20 118/66 (83) 98 07/13/19 12:00 60 07/13/19 09:00 Room Air 07/13/19 08:00 96.5 61 20 131/78 (95) 97 07/13/19 08:00 60 07/13/19 04:00 60 07/13/19 04:00 98.0 60 18 137/70 (92) 99 07/13/19 00:00 98.2 60 18 120/70 (87) 100 07/13/19 00:00 60 07/12/19 21:00 Room Air 07/12/19 20:00 98.1 60 18 133/72 (92) 100 07/12/19 20:00 60 Intake and Output 07/12/19 07/13/19 19:00 07:00 Intake Total 360 ml Output Total 300 ml 500 ml Balance 60 ml -500 ml Intake Oral 360 ml Output Urine Total 200 ml 500 ml Stool Total 100 ml # Voids 1 # Bowel Movements 2 5 Laboratory Tests 07/13/19 09:10: White Blood Count 11.3H, Red Blood Count 4.69L, Hemoglobin 14.7, Hematocrit 41.7L, Mean Corpuscular Volume 89, Mean Corpuscular Hemoglobin 31.3H, Mean Corpuscular Hemoglobin Concent 35.2, Red Cell Distribution Width 11.3L, Platelet Count 263, Mean Platelet Volume 5.4L, Neutrophils (%) (Auto) , Lymphocytes (%) (Auto) , Monocytes (%) (Auto) , Eosinophils (%) (Auto) , Basophils (%) (Auto) , Differential Total Cells Counted 100, Neutrophils % ( Manual) 88H, Lymphocytes % (Manual) 6L, Monocytes % (Manual) 5, Eosinophils % ( Manual) 1, Basophils % (Manual) 0, Band Neutrophils 0, Platelet Estimate Adequate, Platelet Morphology Normal, Red Blood Cell Morphology Normal, Sodium Level 142, Potassium Level 2.1*L, Chloride Level 109H, Carbon Dioxide Level 23, Anion Gap 10, Blood Urea Nitrogen 7, Creatinine 1.0, Estimat Glomerular Filtration Rate , Glucose Level 162H, Calcium Level 7.5L, Phosphorus Level 1.8L , Magnesium Level 2.5H, Total Bilirubin 0.5, Aspartate Amino Transf (AST/SGOT) 21, Alanine Aminotransferase (ALT/SGPT) 18, Alkaline Phosphatase 69, Total Protein 5.8L, Albumin 2.2L, Globulin 3.6, Albumin/Globulin Ratio 0.6L Height (Feet): 5 Height (Inches): 10.00 Weight (Pounds): 160 Cardiovascular: normal peripheral pulses, normal rate Respiratory/Chest: lungs clear oJse Francisco Chand MD Jul 13, 2019 16:29
--- NOTE | 2019-07-13 19:54 | NUR ---
NURSE NOTES: Received pt from ANA PAULA Raza. Pt is awake and resting in bed in no acute distress. no complaints of pain. Iv site intact and patent, and right upper arm double lumen picc line is intact and patent. Bed locked in lowest position, bed alarm on, and call light within reach. Will continue with plan of care.
[2019-07-13 20:00] VITALS: BP 120/63
--- NOTE | 2019-07-13 20:13 | NUR ---
NURSE NOTES: Report given ot ANA PAULA Marrufo. Checked IV sites and rectal tube and R leg wound. PICC appears CDI and patent. R forearm IV also appeared cdi and patient --asymptomatic. Perineal area clean and dry with slight leakage around rectal tube and stool draining into gravity bag. Leg wound dressing currently dry-- changed 3x today per orders. R leg elevated on pillow. Endorsed to ashley GOSS that patient is becoming more reluctant to take po meds, refusing them more often even with the at the bedside encouraging him with this RN.
[2019-07-13] MEDS: Dyna-Hex 2% Top Sol 2oz TOPIC SCH (22:02)
--- NOTE | 2019-07-13 22:30 | Consultation ---
DATE OF CONSULTATION: 07/13/2019 INFECTIOUS DISEASES CONSULTATION CONSULTING PHYSICIAN: Micky Avilez M.D. PRIMARY ATTENDING PHYSICIAN: Jose Francisco Chand M.D. REASON FOR CONSULTATION: Bacteruria, UTI, and blisters on the leg. HISTORY OF PRESENT ILLNESS: This is an 78-year-old male admitted on 07[facility]09/2019 from [facility] because of abdominal distention, failure to thrive, and dehydration. The patient has profound hypokalemia, ileus, megacolon. After admission, the patient had IV access through his line in the right lower extremity. According to nurse, the IV access was infiltrated yesterday and the patient developed blister in the lower back leg that was open and had clear fluid in it. The patient receives a lot of potassium through this IV access. PAST MEDICAL HISTORY: Significant for diabetes mellitus, dementia, status post CVA, hypothyroidism, anemia of chronic kidney disease, constipation, status post pacemaker. ALLERGIES: No known drug allergies. CODE STATUS: DNR/DNI. MEDICATIONS: Getting potassium chloride, Aldactone, Protonix, Asacol, heparin, Tylenol, diphenhydramine, Ambien. SOCIAL HISTORY: senior living resident. No history of alcohol, drug abuse, or smoking. . REVIEW OF SYSTEMS: Limited. The patient has no complaints. PHYSICAL EXAMINATION: VITAL SIGNS: Temperature 97.7, pulse 61, blood pressure 118/66. GENERAL APPEARANCE: No acute distress. HEAD AND NECK: [place] conjunctiva. HEART: Pacemaker in the right. LUNGS: Clear. ABDOMEN: Soft, nondistended. He has rectal tube. GENITOURINARY: He has condom catheter. EXTREMITIES: Blisters that opened spontaneously in the back of right calf, has edema right lower extremity. LABORATORY AND DIAGNOSTIC DATA: Venous duplexes of right lower leg to rule out DVT. WBC today is 11.3, hemoglobin 14.7, hematocrit 41.7, platelets 263. Sodium 142, potassium 2.1, chloride 109, bicarbonate 23, BUN 7, creatinine 1, glucose 162, magnesium 2.5. Albumin is 2.2. UA showed wbc's of 5 to 10. Urine culture is growing Gram-negative moise. A CT scan of the abdomen and pelvis at the time of admission showed marked distention of sigmoid colon, was concerned for volvulus. IMPRESSION: Extensive infiltration and blister formation in the right lower leg likely secondary to line infiltration, has bacteriuria, may have UTI, has ileus and megacolon that is improving, constipation, severe hypokalemia, hypothyroidism, dementia, status post CVA with contracture in the right upper extremity . RECOMMENDATIONS: We will start on ceftriaxone. We will follow up the cultures. We will follow up the wound. The patient needs PICC line for IV potassium. At the end of my exam, I thank, Dr. Chand, for involving me in the care of this patient. Micky Avilez M.D. DR: Rolando JOB#: [id number] CC: MARKUS
[2019-07-14] VITALS: BP 147/74
[2019-07-14 04:00] VITALS: BP 152/72
--- NOTE | 2019-07-14 06:22 | Hematology/Onc Progress Note ---
Assessment/Plan Assessment/Plan Assessment and Recs: # Failure to thrive (FTT) - decreased bmi and low protein, protein decreased, decreased po intake --> cea is 7.1, as per gi eval --> will also obtain q3d caloric counts --> mirtazapine as appetite stimulant --> GI consult has ordered, appreciate recs --> may need a gtube # Anemia of chronic disease due to underlying chronic medical issues, multifactorial --> Anemia workup has been ordered, rule out gi bleed --> No evidence of hemolysis is noted, peripheral smear has been reviewed. --> Hgb goal >7. Transfuse prn. --> Epogen or iron at this time is not particularly indicated --> Medications have been reviewed # Abdominal pain r/o volvulus, has been evaluated by surg and gi in the past, egd/colo completed as well in past --> rectal tube inserted as per gi --> trial po intake --> as per gi and surg recs # Episode of generalized weakness --> cea is 7.1, as per gi team --> ivf have been started # Encephalopathy --> neuro eval as needed # Dehydration --> per renal # [place] Pacemaker - as per cards # Troponin leak # Dvt ppx with heparin sq Greatly appreciate consultation. Subjective Constitutional: Denies: no symptoms, chills, fever, malaise, weakness, other HEENT: Denies: no symptoms, eye pain, blurred vision, tearing, double vision, ear pain, ear discharge, nose pain, nose congestion, throat pain, throat swelling, mouth pain, mouth swelling, other Cardiovascular: Denies: no symptoms, chest pain, edema, irregular heart rate, lightheadedness, palpitations, syncope, other Respiratory: Denies: no symptoms, cough, shortness of breath, SOB with excertion, SOB at rest, sputum, wheezing, other Gastrointestinal/Abdominal: Denies: no symptoms, abdomen distended, abdominal pain, black stools, tarry stools, blood in stool, constipated, diarrhea, difficulty swallowing, nausea, poor appetite, poor fluid intake, rectal bleeding , vomiting, other Genitourinary: Denies: no symptoms, burning, discharge, frequency, flank pain, hematuria, incontinence, pain, urgency, other Neurologic/Psychiatric: Denies: no symptoms, anxiety, depressed, emotional problems, headache, numbness, paresthesia, pre-existing deficit, seizure, tingling, tremors, weakness, other Allergies: Coded Allergies: No Known Allergies (Unverified , 04/22/17) Subjective 07/11: no events, no bleeding, rectal tube flused, dw Rn 07/12: no f/c, no bleeding, dw rn, rect tube in place, bp is mildly high 07/13: no events to report, no bleeding noted, xray abd repeat, k given 07/14: no events, rectal tube in place but leaking, yes k given Objective Objective Current Medications Medications (Trade) Dose Ordered Sig/Kevin Route PRN Reason Start Time Stop Time Status Last Admin Dose Admin Acetaminophen (Tylenol) 650 mg Q4H PRN ORAL Mild Pain/Temp > 100.5 07/09/19 20:00 08/08/19 19:59 07/11/19 11:40 Ceftriaxone Sodium 1 gm/ Dextrose 55 ml @ 110 mls/hr Q24H IVPB 07/13/19 14:00 07/20/19 13:59 07/13/19 14:00 Chlorhexidine Gluconate (Alejandrina-Hex 2%) 1 applic DAILY@2000 TOPIC 07/13/19 20:00 08/12/19 19:59 07/13/19 22:02 Dextrose 1,000 ml @ 50 mls/hr Q20H IV 07/11/19 12:00 08/10/19 11:59 07/14/19 02:30 Diphenhydramine HCl (Benadryl) 25 mg Q6H PRN ORAL Itching 07/09/19 20:00 08/08/19 19:59 Heparin Sodium (Porcine) (Heparin 5000 units/ml) 5,000 units EVERY 12 HOURS SUBQ 07/09/19 21:00 08/08/19 20:59 07/13/19 22:05 Heparin Sodium/ Sodium Chloride (Heparin 1000 units/500ml Premix) 1,000 unit ONCE PRN IV picc line placement 07/13/19 12:00 07/15/19 11:59 Lidocaine HCl (Xylocaine 1% 30ml) 30 ml ONCE PRN INJ picc line placement 07/13/19 12:00 07/15/19 11:59 Mesalamine (Asacol) 1,600 mg THREE TIMES A DAY ORAL 07/11/19 13:00 08/10/19 12:59 07/12/19 13:00 Pantoprazole (Protonix) 40 mg EVERY 12 HOURS ORAL 07/11/19 21:00 08/10/19 20:59 07/13/19 22:03 Potassium Chloride (K-Dur) 40 meq QID ORAL 07/13/19 13:00 08/11/19 12:59 07/13/19 22:03 Spironolactone (Aldactone) 50 mg EVERY 12 HOURS ORAL 07/12/19 21:00 08/10/19 11:59 07/13/19 22:03 Zolpidem Tartrate (Ambien) 5 mg HSPRN PRN ORAL Insomnia 07/09/19 20:00 07/16/19 19:59 Last 24 Hour Vital Signs Date Time Temp Pulse Resp B/P (MAP) Pulse Ox O2 Delivery O2 Flow Rate FiO2 07/14/19 04:00 60 07/14/19 04:00 98.8 60 18 152/72 (98) 99 07/14/19 00:00 60 07/14/19 00:00 98.2 60 18 147/74 (98) 100 07/13/19 21:00 Room Air 07/13/19 20:00 60 07/13/19 20:00 98.0 60 16 120/63 (82) 100 07/13/19 16:00 97.7 61 20 101/57 (72) 98 07/13/19 16:00 60 07/13/19 12:00 97.7 61 20 118/66 (83) 98 07/13/19 12:00 60 07/13/19 09:00 Room Air 07/13/19 08:00 96.5 61 20 131/78 (95) 97 07/13/19 08:00 60 07/13/19 04:00 60 07/13/19 04:00 98.0 60 18 137/70 (92) 99 07/13/19 00:00 98.2 60 18 120/70 (87) 100 07/13/19 00:00 60 07/12/19 21:00 Room Air 07/12/19 20:00 98.1 60 18 133/72 (92) 100 07/12/19 20:00 60 07/12/19 16:00 60 07/12/19 16:00 97.2 60 18 137/74 (95) 100 07/12/19 12:00 60 07/12/19 12:00 97.6 60 18 135/90 (105) 99 07/12/19 09:00 Room Air 07/12/19 08:00 97.8 59 18 138/74 (95) 98 07/12/19 08:00 60 Intake and Output 07/13/19 07/14/19 18:59 06:59 Intake Total 480 ml Output Total 670 ml Balance -190 ml Intake Oral 480 ml Output Urine Total 670 ml # Bowel Movements 2 Labs Test 07/11/19 10:00 07/12/19 07:14 07/12/19 09:00 07/13/19 09:10 Urine Color Pale yellow Urine Appearance Clear Urine pH 5 (4.5-8.0) Urine Specific [place] 1.015 (1.005-1.035) Urine Protein 1+ (NEGATIVE) Urine Glucose (UA) Negative (NEGATIVE) Urine Ketones Negative (NEGATIVE) Urine Blood 1+ (NEGATIVE) Urine Nitrite Negative (NEGATIVE) Urine Bilirubin Negative (NEGATIVE) Urine Urobilinogen Normal MG/DL (0.0-1.0) Urine Leukocyte Esterase 3+ (NEGATIVE) Urine RBC 0-2 /HPF (0 - 0) Urine WBC 5-10 /HPF (0 - 0) Urine Squamous Epithelial Cells Occasional /LPF Urine Bacteria Occasional /HPF (NONE) Urine Yeast Few /HPF (NONE) White Blood Count 8.3 K/UL (4.8-10.8) 11.3 K/UL (4.8-10.8) Red Blood Count 4.20 M/UL (4.70-6.10) 4.69 M/UL (4.70-6.10) Hemoglobin 13.1 G/DL (14.2-18.0) 14.7 G/DL (14.2-18.0) Hematocrit 37.6 % (42.0-52.0) 41.7 % (42.0-52.0) Mean Corpuscular Volume 90 FL (80-99) 89 FL (80-99) Mean Corpuscular Hemoglobin 31.3 PG (27.0-31.0) 31.3 PG (27.0-31.0) Mean Corpuscular Hemoglobin Concent 34.9 G/DL (32.0-36.0) 35.2 G/DL (32.0-36.0) Red Cell Distribution Width 10.2 % (11.6-14.8) 11.3 % (11.6-14.8) Platelet Count 226 K/UL (150-450) 263 K/UL (150-450) Mean Platelet Volume 5.8 FL (6.5-10.1) 5.4 FL (6.5-10.1) Neutrophils (%) (Auto) 82.9 % (45.0-75.0) % (45.0-75.0) Lymphocytes (%) (Auto) 11.0 % (20.0-45.0) % (20.0-45.0) Monocytes (%) (Auto) 5.7 % (1.0-10.0) % (1.0-10.0) Eosinophils (%) (Auto) 0.1 % (0.0-3.0) % (0.0-3.0) Basophils (%) (Auto) 0.4 % (0.0-2.0) % (0.0-2.0) Sodium Level 145 MMOL/L (136-145) 142 MMOL/L (136-145) Potassium Level 1.7 MMOL/L (3.5-5.1) 2.1 MMOL/L (3.5-5.1) Chloride Level 110 MMOL/L (98-107) 109 MMOL/L (98-107) Carbon Dioxide Level 26 MMOL/L (21-32) 23 MMOL/L (21-32) Anion Gap 10 mmol/L (5-15) 10 mmol/L (5-15) Blood Urea Nitrogen 10 mg/dL (7-18) 7 mg/dL (7-18) Creatinine 1.0 MG/DL (0.55-1.30) 1.0 MG/DL (0.55-1.30) Estimat Glomerular Filtration Rate mL/min (>60) mL/min (>60) Glucose Level 97 MG/DL (74-106) 162 MG/DL (74-106) Uric Acid 6.4 MG/DL (2.6-7.2) Calcium Level 7.7 MG/DL (8.5-10.1) 7.5 MG/DL (8.5-10.1) Phosphorus Level 2.5 MG/DL (2.5-4.9) 1.8 MG/DL (2.5-4.9) Magnesium Level 1.7 MG/DL (1.8-2.4) 2.5 MG/DL (1.8-2.4) Total Bilirubin 0.5 MG/DL (0.2-1.0) 0.5 MG/DL (0.2-1.0) Aspartate Amino Transf (AST/SGOT) 22 U/L (15-37) 21 U/L (15-37) Alanine Aminotransferase (ALT/SGPT) 19 U/L (12-78) 18 U/L (12-78) Alkaline Phosphatase 70 U/L (46-116) 69 U/L (46-116) Total Creatine Kinase 102 U/L (26-308) Total Protein 5.9 G/DL (6.4-8.2) 5.8 G/DL (6.4-8.2) Albumin 2.3 G/DL (3.4-5.0) 2.2 G/DL (3.4-5.0) Globulin 3.6 g/dL 3.6 g/dL Albumin/Globulin Ratio 0.6 (1.0-2.7) 0.6 (1.0-2.7) Thyroid Stimulating Hormone (TSH) 3.816 uiU/mL (0.358-3.740) Differential Total Cells Counted 100 Neutrophils % (Manual) 88 % (45-75) Lymphocytes % (Manual) 6 % (20-45) Monocytes % (Manual) 5 % (1-10) Eosinophils % (Manual) 1 % (0-3) Basophils % (Manual) 0 % (0-2) Band Neutrophils 0 % (0-8) Platelet Estimate Adequate Platelet Morphology Normal Red Blood Cell Morphology Normal Height (Feet): 5 Height (Inches): 10.00 Weight (Pounds): 160 Respiratory/Chest: respiratory distress Objective PE General: alert, non-toxic, thin, Chronically Ill HEENT: poor dentition Resp: lungs clear, normal breath sounds CV: regular rate, rhythm GI: normal inspection, non tender, no guarding, no rebound, distended+ : no CVA tenderness ++ rectal tube Kleynberg,Sterling L. MD Jul 14, 2019 06:22
[2019-07-14 07:21] LABS: BASOPHILS % (AUTO) 0.2 % (0.0-2.0); EOSINOPHILS % (AUTO) 0.3 % (0.0-3.0); HEMATOCRIT 32.8 % (42.0-52.0); HEMOGLOBIN 11.3 G/DL (14.2-18.0); LYMPHOCYTES % (AUTO) 11.7 % (20.0-45.0); MEAN CORPUSCULAR VOLUME 91 FL (80-99); MONOCYTES % (AUTO) 5.5 % (1.0-10.0); NEUTROPHILS % (AUTO) 82.3 % (45.0-75.0); PLATELET COUNT 199 K/UL (150-450); RED BLOOD COUNT 3.62 M/UL (4.70-6.10); WHITE BLOOD COUNT 8.5 K/UL (4.8-10.8)
[2019-07-14 07:41] LABS: ALANINE AMINOTRANSFERASE 14 U/L (12-78); ALBUMIN 1.7 G/DL (3.4-5.0); ALBUMIN/GLOBULIN RATIO 0.6 (1.0-2.7); ALKALINE PHOSPHATASE 54 U/L (46-116); ANION GAP 7 mmol/L (5-15); ASPARTATE AMINO TRANSFERASE 15 U/L (15-37); BILIRUBIN,TOTAL 0.4 MG/DL (0.2-1.0); BLOOD UREA NITROGEN 7 mg/dL (7-18); CALCIUM 6.9 MG/DL (8.5-10.1); CARBON DIOXIDE 25 MMOL/L (21-32); CHLORIDE 114 MMOL/L (98-107); CREATININE 0.9 MG/DL (0.55-1.30); PHOSPHORUS 2.4 MG/DL (2.5-4.9); SODIUM 146 MMOL/L (136-145)
--- NOTE | 2019-07-14 07:45 | NUR ---
HAND-OFF: Report given to ANA PAULA reynaga. Endorsed plan of care.
[2019-07-14 07:47] LABS: POTASSIUM 2.4 MMOL/L (3.5-5.1)
[2019-07-14 08:00] VITALS: BP 114/61
[2019-07-14] MEDS: Mesalamine 400mg cap ORAL SCH ×3 (08:49→18:19)
[2019-07-14] MEDS: Spironolactone 50mg tab ORAL SCH ×3 (08:52→21:33)
[2019-07-14] MEDS ORDERED: Potassium Phosphate 30 MM in NS 275 ML IV SCH (09:00)
[2019-07-14] MEDS: Heparin 5000 units/ml inj SUBQ SCH ×2 (09:08→21:40)
--- NOTE | 2019-07-14 10:21 | Nephrology Progress Note ---
Assessment/Plan Problem List: (1) Hypokalemia Assessment: due to diarrhea (2) Dehydration (3) Failure to thrive (4) Elevated troponin (5) Abdominal distention Assessment HypoKalemia Severe UTI HTN Ileus FFT troponin Leak Pacemaker Plan K supplement IV and PO resume Aldactone resume Asacol monitor lytes per orders check TSH Subjective ROS Limited/Unobtainable: No Constitutional: Reports: malaise, weakness Objective Objective Last 24 Hour Vital Signs Date Time Temp Pulse Resp B/P (MAP) Pulse Ox O2 Delivery O2 Flow Rate FiO2 07/14/19 04:00 60 07/14/19 04:00 98.8 60 18 152/72 (98) 99 07/14/19 00:00 60 07/14/19 00:00 98.2 60 18 147/74 (98) 100 07/13/19 21:00 Room Air 07/13/19 20:00 60 07/13/19 20:00 98.0 60 16 120/63 (82) 100 07/13/19 16:00 97.7 61 20 101/57 (72) 98 07/13/19 16:00 60 07/13/19 12:00 97.7 61 20 118/66 (83) 98 07/13/19 12:00 60 Intake and Output 07/13/19 07/14/19 19:00 07:00 Intake Total 480 ml 360 ml Output Total 670 ml 250 ml Balance -190 ml 110 ml Intake Oral 480 ml 360 ml Output Urine Total 670 ml 250 ml # Bowel Movements 2 Laboratory Tests 07/14/19 06:30: White Blood Count 8.5, Red Blood Count 3.62L, Hemoglobin 11.3L, Hematocrit 32.8L , Mean Corpuscular Volume 91, Mean Corpuscular Hemoglobin 31.3H, Mean Corpuscular Hemoglobin Concent 34.5, Red Cell Distribution Width 12.0, Platelet Count 199, Mean Platelet Volume 6.0L, Neutrophils (%) (Auto) 82.3H, Lymphocytes (%) (Auto) 11.7L, Monocytes (%) (Auto) 5.5, Eosinophils (%) (Auto) 0.3, Basophils (%) (Auto) 0.2, Sodium Level 146H, Potassium Level 2.4*L, Chloride Level 114H, Carbon Dioxide Level 25, Anion Gap 7, Blood Urea Nitrogen 7, Creatinine 0.9, Estimat Glomerular Filtration Rate , Glucose Level 276#H, Calcium Level 6.9L, Phosphorus Level 2.4L, Magnesium Level 1.9, Total Bilirubin 0.4, Aspartate Amino Transf (AST/SGOT) 15, Alanine Aminotransferase (ALT/SGPT) 14, Alkaline Phosphatase 54, C-Reactive Protein, Quantitative 1.4H, Total Protein 4.6L, Albumin 1.7L, Globulin 2.9, Albumin/Globulin Ratio 0.6L Height (Feet): 5 Height (Inches): 10.00 Weight (Pounds): 151 General Appearance: no apparent distress Respiratory/Chest: decreased breath sounds Abdomen: soft, distended Herve Marshall MD Jul 14, 2019 10:21
--- NOTE | 2019-07-14 11:51 | Infectious Diseases Prog Note ---
Assessment/Plan Assessment/Plan IMPRESSION: line infiltration, UTI UTI, ileus and megacolon that is improving, constipation, severe hypokalemia, hypothyroidism, dementia, status post CVA with contracture in the right upper extremity . RECOMMENDATIONS: Change ceftriaxone to Zosyn Subjective ROS Limited/Unobtainable: Yes Constitutional: Reports: no symptoms Cardiovascular: Reports: other - had PICC line placement Allergies: Coded Allergies: No Known Allergies (Unverified , 04/22/17) Objective Vital Signs Last 24 Hour Vital Signs Date Time Temp Pulse Resp B/P (MAP) Pulse Ox O2 Delivery O2 Flow Rate FiO2 07/14/19 09:00 Room Air 07/14/19 08:00 60 07/14/19 08:00 97.4 60 18 114/61 (78) 98 07/14/19 04:00 60 07/14/19 04:00 98.8 60 18 152/72 (98) 99 07/14/19 00:00 60 07/14/19 00:00 98.2 60 18 147/74 (98) 100 07/13/19 21:00 Room Air 07/13/19 20:00 60 07/13/19 20:00 98.0 60 16 120/63 (82) 100 07/13/19 16:00 97.7 61 20 101/57 (72) 98 07/13/19 16:00 60 07/13/19 12:00 97.7 61 20 118/66 (83) 98 07/13/19 12:00 60 Height (Feet): 5 Height (Inches): 10.00 Weight (Pounds): 151 General Appearance: no acute distress HEENT: mucous membranes moist Respiratory/Chest: lungs clear Cardiovascular: normal rate Abdomen: soft, non tender, other - rectal tube Extremities: other - dreased R leg edema Skin: ulcers, other - right leg skin denudation Neurologic/Psychiatric: alert, responsive Laboratory Tests Test 07/14/19 06:30 White Blood Count 8.5 K/UL (4.8-10.8) Red Blood Count 3.62 M/UL (4.70-6.10) L Hemoglobin 11.3 G/DL (14.2-18.0) L Hematocrit 32.8 % (42.0-52.0) L Mean Corpuscular Volume 91 FL (80-99) Mean Corpuscular Hemoglobin 31.3 PG (27.0-31.0) H Mean Corpuscular Hemoglobin Concent 34.5 G/DL (32.0-36.0) Red Cell Distribution Width 12.0 % (11.6-14.8) Platelet Count 199 K/UL (150-450) Mean Platelet Volume 6.0 FL (6.5-10.1) L Neutrophils (%) (Auto) 82.3 % (45.0-75.0) H Lymphocytes (%) (Auto) 11.7 % (20.0-45.0) L Monocytes (%) (Auto) 5.5 % (1.0-10.0) Eosinophils (%) (Auto) 0.3 % (0.0-3.0) Basophils (%) (Auto) 0.2 % (0.0-2.0) Sodium Level 146 MMOL/L (136-145) H Potassium Level 2.4 MMOL/L (3.5-5.1) *L Chloride Level 114 MMOL/L (98-107) H Carbon Dioxide Level 25 MMOL/L (21-32) Anion Gap 7 mmol/L (5-15) Blood Urea Nitrogen 7 mg/dL (7-18) Creatinine 0.9 MG/DL (0.55-1.30) Estimat Glomerular Filtration Rate mL/min (>60) Glucose Level 276 MG/DL (74-106) #H Calcium Level 6.9 MG/DL (8.5-10.1) L Phosphorus Level 2.4 MG/DL (2.5-4.9) L Magnesium Level 1.9 MG/DL (1.8-2.4) Total Bilirubin 0.4 MG/DL (0.2-1.0) Aspartate Amino Transf (AST/SGOT) 15 U/L (15-37) Alanine Aminotransferase (ALT/SGPT) 14 U/L (12-78) Alkaline Phosphatase 54 U/L (46-116) C-Reactive Protein, Quantitative 1.4 mg/dL (0.00-0.90) H Total Protein 4.6 G/DL (6.4-8.2) L Albumin 1.7 G/DL (3.4-5.0) L Globulin 2.9 g/dL Albumin/Globulin Ratio 0.6 (1.0-2.7) L Current Medications Medications (Trade) Dose Ordered Sig/Kevin Route PRN Reason Start Time Stop Time Status Last Admin Dose Admin Acetaminophen (Tylenol) 650 mg Q4H PRN ORAL Mild Pain/Temp > 100.5 07/09/19 20:00 08/08/19 19:59 07/11/19 11:40 Ceftriaxone Sodium 1 gm/ Dextrose 55 ml @ 110 mls/hr Q24H IVPB 07/13/19 14:00 07/20/19 13:59 07/13/19 14:00 Chlorhexidine Gluconate (Alejandrina-Hex 2%) 1 applic DAILY@2000 TOPIC 07/13/19 20:00 08/12/19 19:59 07/13/19 22:02 Dextrose 1,000 ml @ 50 mls/hr Q20H IV 07/11/19 12:00 08/10/19 11:59 07/14/19 02:30 Diphenhydramine HCl (Benadryl) 25 mg Q6H PRN ORAL Itching 07/09/19 20:00 08/08/19 19:59 Heparin Sodium (Porcine) (Heparin 5000 units/ml) 5,000 units EVERY 12 HOURS SUBQ 07/09/19 21:00 08/08/19 20:59 07/14/19 09:08 Heparin Sodium/ Sodium Chloride (Heparin 1000 units/500ml Premix) 1,000 unit ONCE PRN IV picc line placement 07/13/19 12:00 07/15/19 11:59 Lidocaine HCl (Xylocaine 1% 30ml) 30 ml ONCE PRN INJ picc line placement 07/13/19 12:00 07/15/19 11:59 Mesalamine (Asacol) 1,600 mg THREE TIMES A DAY ORAL 07/11/19 13:00 08/10/19 12:59 07/14/19 08:49 Pantoprazole (Protonix) 40 mg EVERY 12 HOURS ORAL 07/11/19 21:00 08/10/19 20:59 07/14/19 09:04 Potassium Phosphate 30 mm/ Sodium Chloride 285 ml @ 47.5 mls/hr ONCE IV 07/14/19 09:00 07/14/19 15:00 07/14/19 09:04 Potassium Chloride 100 ml @ 100 mls/hr Q1H IVPB 07/14/19 09:00 07/14/19 14:59 07/14/19 10:29 Potassium Chloride (K-Dur) 40 meq QID ORAL 07/13/19 13:00 08/11/19 12:59 07/14/19 08:52 Spironolactone (Aldactone) 50 mg EVERY 12 HOURS ORAL 07/12/19 21:00 08/10/19 11:59 07/14/19 08:52 Zolpidem Tartrate (Ambien) 5 mg HSPRN PRN ORAL Insomnia 07/09/19 20:00 07/16/19 19:59 Micky Avilez MD Jul 14, 2019 11:51
--- NOTE | 2019-07-14 11:59 | Cardiac Electrophysiology PN ---
Assessment/Plan Assessment/Plan 1. Troponin leak. No chest pain or SOB. EKG is ventricularly paced and Echo nl EF 2. Status post [place] pacer. Interrogation showed normal pacemaker function. 3. Severe hypokalemia with Potassium as low as 1.7. On Aldactone 50 bid and more iv and po again. Has central line 4. Hypernatremia. The patient is getting IV fluid. 5. Possible bowel obstruction. CT scan of abdomen and pelvis showed marked distention of the sigmoid colon. No evidence of free intraperitoneal air or fluid. No small bowel obstruction. Further evaluation by Dr. Smith. DW RN Subjective Subjective No CP or SOB. Rectal tube still draining heavily. K still low iv replacement via PICC line. RN at bedside Objective Last 24 Hour Vital Signs Date Time Temp Pulse Resp B/P (MAP) Pulse Ox O2 Delivery O2 Flow Rate FiO2 07/14/19 09:00 Room Air 07/14/19 08:00 60 07/14/19 08:00 97.4 60 18 114/61 (78) 98 07/14/19 04:00 60 07/14/19 04:00 98.8 60 18 152/72 (98) 99 07/14/19 00:00 60 07/14/19 00:00 98.2 60 18 147/74 (98) 100 07/13/19 21:00 Room Air 07/13/19 20:00 60 07/13/19 20:00 98.0 60 16 120/63 (82) 100 07/13/19 16:00 97.7 61 20 101/57 (72) 98 07/13/19 16:00 60 07/13/19 12:00 97.7 61 20 118/66 (83) 98 07/13/19 12:00 60 Intake and Output 07/13/19 07/14/19 19:00 07:00 Intake Total 480 ml 360 ml Output Total 670 ml 250 ml Balance -190 ml 110 ml Intake Oral 480 ml 360 ml Output Urine Total 670 ml 250 ml # Bowel Movements 2 Laboratory Tests Test 07/14/19 06:30 White Blood Count 8.5 K/UL (4.8-10.8) Red Blood Count 3.62 M/UL (4.70-6.10) L Hemoglobin 11.3 G/DL (14.2-18.0) L Hematocrit 32.8 % (42.0-52.0) L Mean Corpuscular Volume 91 FL (80-99) Mean Corpuscular Hemoglobin 31.3 PG (27.0-31.0) H Mean Corpuscular Hemoglobin Concent 34.5 G/DL (32.0-36.0) Red Cell Distribution Width 12.0 % (11.6-14.8) Platelet Count 199 K/UL (150-450) Mean Platelet Volume 6.0 FL (6.5-10.1) L Neutrophils (%) (Auto) 82.3 % (45.0-75.0) H Lymphocytes (%) (Auto) 11.7 % (20.0-45.0) L Monocytes (%) (Auto) 5.5 % (1.0-10.0) Eosinophils (%) (Auto) 0.3 % (0.0-3.0) Basophils (%) (Auto) 0.2 % (0.0-2.0) Sodium Level 146 MMOL/L (136-145) H Potassium Level 2.4 MMOL/L (3.5-5.1) *L Chloride Level 114 MMOL/L (98-107) H Carbon Dioxide Level 25 MMOL/L (21-32) Anion Gap 7 mmol/L (5-15) Blood Urea Nitrogen 7 mg/dL (7-18) Creatinine 0.9 MG/DL (0.55-1.30) Estimat Glomerular Filtration Rate mL/min (>60) Glucose Level 276 MG/DL (74-106) #H Calcium Level 6.9 MG/DL (8.5-10.1) L Phosphorus Level 2.4 MG/DL (2.5-4.9) L Magnesium Level 1.9 MG/DL (1.8-2.4) Total Bilirubin 0.4 MG/DL (0.2-1.0) Aspartate Amino Transf (AST/SGOT) 15 U/L (15-37) Alanine Aminotransferase (ALT/SGPT) 14 U/L (12-78) Alkaline Phosphatase 54 U/L (46-116) C-Reactive Protein, Quantitative 1.4 mg/dL (0.00-0.90) H Total Protein 4.6 G/DL (6.4-8.2) L Albumin 1.7 G/DL (3.4-5.0) L Globulin 2.9 g/dL Albumin/Globulin Ratio 0.6 (1.0-2.7) L Objective HEAD AND NECK: No JVD. LUNGS: Clear. CARDIOVASCULAR: Regular S1 and S2 with no gallop. 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 ABDOMEN: Distended. EXTREMITIES: No pitting edema. Cedric Bernard MD Jul 14, 2019 11:59
[2019-07-14 12:00] VITALS: BP 119/89
--- NOTE | 2019-07-14 13:16 | GI Progress Note ---
Assessment/Plan Problems: (1) Dehydration ICD Codes: E86.0 - Dehydration SNOMED: 42086641 (2) Failure to thrive SNOMED: 48941117 Qualifiers: Qualified Codes: R62.7 - Adult failure to thrive (3) Abdominal distention ICD Codes: R14.0 - Abdominal distension (gaseous) SNOMED: 67224887 (4) Gastroparesis ICD Codes: K31.84 - Gastroparesis SNOMED: 511794071 Status: stable Status Narrative Discussed with Dr. Ortiz. Assessment/Plan rectal tube for colonic decompression correct K serial imaging prn prn transfusions advance to full liquid diet follow labs The patient was seen and examined at bedside and all new and available data was reviewed in the patients chart. I agree with the above findings, impression and plan. (Patient seen earlier today. Signature stamp does not reflect patient encounter time.). - Tavares Ortiz MD Subjective Gastrointestinal/Abdominal: Reports: no symptoms Objective Last 24 Hour Vital Signs Date Time Temp Pulse Resp B/P (MAP) Pulse Ox O2 Delivery O2 Flow Rate FiO2 07/14/19 09:00 Room Air 07/14/19 08:00 60 07/14/19 08:00 97.4 60 18 114/61 (78) 98 07/14/19 04:00 60 07/14/19 04:00 98.8 60 18 152/72 (98) 99 07/14/19 00:00 60 07/14/19 00:00 98.2 60 18 147/74 (98) 100 07/13/19 21:00 Room Air 07/13/19 20:00 60 07/13/19 20:00 98.0 60 16 120/63 (82) 100 07/13/19 16:00 97.7 61 20 101/57 (72) 98 07/13/19 16:00 60 Intake and Output 07/13/19 07/14/19 19:00 07:00 Intake Total 480 ml 360 ml Output Total 670 ml 250 ml Balance -190 ml 110 ml Intake Oral 480 ml 360 ml Output Urine Total 670 ml 250 ml # Bowel Movements 2 Laboratory Tests Test 07/14/19 06:30 White Blood Count 8.5 K/UL (4.8-10.8) Red Blood Count 3.62 M/UL (4.70-6.10) L Hemoglobin 11.3 G/DL (14.2-18.0) L Hematocrit 32.8 % (42.0-52.0) L Mean Corpuscular Volume 91 FL (80-99) Mean Corpuscular Hemoglobin 31.3 PG (27.0-31.0) H Mean Corpuscular Hemoglobin Concent 34.5 G/DL (32.0-36.0) Red Cell Distribution Width 12.0 % (11.6-14.8) Platelet Count 199 K/UL (150-450) Mean Platelet Volume 6.0 FL (6.5-10.1) L Neutrophils (%) (Auto) 82.3 % (45.0-75.0) H Lymphocytes (%) (Auto) 11.7 % (20.0-45.0) L Monocytes (%) (Auto) 5.5 % (1.0-10.0) Eosinophils (%) (Auto) 0.3 % (0.0-3.0) Basophils (%) (Auto) 0.2 % (0.0-2.0) Sodium Level 146 MMOL/L (136-145) H Potassium Level 2.4 MMOL/L (3.5-5.1) *L Chloride Level 114 MMOL/L (98-107) H Carbon Dioxide Level 25 MMOL/L (21-32) Anion Gap 7 mmol/L (5-15) Blood Urea Nitrogen 7 mg/dL (7-18) Creatinine 0.9 MG/DL (0.55-1.30) Estimat Glomerular Filtration Rate mL/min (>60) Glucose Level 276 MG/DL (74-106) #H Calcium Level 6.9 MG/DL (8.5-10.1) L Phosphorus Level 2.4 MG/DL (2.5-4.9) L Magnesium Level 1.9 MG/DL (1.8-2.4) Total Bilirubin 0.4 MG/DL (0.2-1.0) Aspartate Amino Transf (AST/SGOT) 15 U/L (15-37) Alanine Aminotransferase (ALT/SGPT) 14 U/L (12-78) Alkaline Phosphatase 54 U/L (46-116) C-Reactive Protein, Quantitative 1.4 mg/dL (0.00-0.90) H Total Protein 4.6 G/DL (6.4-8.2) L Albumin 1.7 G/DL (3.4-5.0) L Globulin 2.9 g/dL Albumin/Globulin Ratio 0.6 (1.0-2.7) L Height (Feet): 5 Height (Inches): 10.00 Weight (Pounds): 151 General Appearance: WD/WN, no apparent distress, alert Cardiovascular: normal rate Respiratory/Chest: normal breath sounds, no respiratory distress Abdominal Exam: normal bowel sounds, non tender, soft Extremities: non-tender Cristina Galloway NP Jul 14, 2019 13:16
[2019-07-14] MEDS: Piperacillin/Tazobactam 4.5 GM in NS 110 ML IVPB SCH ×2 (14:31→21:42)
--- NOTE | 2019-07-14 14:31 | NUR ---
RD ASSESSMENT & RECOMMENDATIONS SEE CARE ACTIVITY FOR COMPLETE ASSESSMENT DAILY ESTIMATED NEEDS: Needs based on Underweight, wound/ 64kg 30-35 kcals/kg 7852-7417 total kcals 1.25-1.5 g protein/kg 80-96 g total protein 25-30 mL/kg 4790-2103 total fluid mLs NUTRITION DIAGNOSIS: *Increased kcal and protein needs r/t underweight status, wound healing, as evidenced by BMI underweight per guidelines, 82% [place] Body Weight, open sacral wound, eval pending. CURRENT DIET:Now full liquid PO DIET RECOMMENDATIONS: Advance as able, Soft diet/ texture per GEAR STRAIGHTENER ADDITIONAL RECOMMENDATIONS: * Calibrated bedscale wt for accurate CBW EMR wt: 160# vs Bed wt: 141#, 152# * GEAR STRAIGHTENER eval for appropriate texture * Add ENSURE CLEAR w/ CLD * Add Ensure Enlive w/ advanced diet/ monitor po intake * F/up w/ WC eval: add VALERY BID if tolerated * Daily monitoring of hydration status/ lytes (elev Na/ low K/ low phos)
--- NOTE | 2019-07-14 14:31 | Surgery Progress Note ---
Surgery Progress Note Subjective Additional Comments doing well tolerating diet comfortable PICC line Objective Last 24 Hour Vital Signs Date Time Temp Pulse Resp B/P (MAP) Pulse Ox O2 Delivery O2 Flow Rate FiO2 07/14/19 09:00 Room Air 07/14/19 08:00 60 07/14/19 08:00 97.4 60 18 114/61 (78) 98 07/14/19 04:00 60 07/14/19 04:00 98.8 60 18 152/72 (98) 99 07/14/19 00:00 60 07/14/19 00:00 98.2 60 18 147/74 (98) 100 07/13/19 21:00 Room Air 07/13/19 20:00 60 07/13/19 20:00 98.0 60 16 120/63 (82) 100 07/13/19 16:00 97.7 61 20 101/57 (72) 98 07/13/19 16:00 60 I&O Intake and Output 07/13/19 07/14/19 19:00 07:00 Intake Total 480 ml 360 ml Output Total 670 ml 250 ml Balance -190 ml 110 ml Intake Oral 480 ml 360 ml Output Urine Total 670 ml 250 ml # Bowel Movements 2 Cardiovascular: RSR Respiratory: clear Abdomen: soft, flat, non-tender, present bowel sounds, non-distended Extremities: no edema, no tenderness, no cyanosis Laboratory Tests Test 07/14/19 06:30 White Blood Count 8.5 K/UL (4.8-10.8) Red Blood Count 3.62 M/UL (4.70-6.10) L Hemoglobin 11.3 G/DL (14.2-18.0) L Hematocrit 32.8 % (42.0-52.0) L Mean Corpuscular Volume 91 FL (80-99) Mean Corpuscular Hemoglobin 31.3 PG (27.0-31.0) H Mean Corpuscular Hemoglobin Concent 34.5 G/DL (32.0-36.0) Red Cell Distribution Width 12.0 % (11.6-14.8) Platelet Count 199 K/UL (150-450) Mean Platelet Volume 6.0 FL (6.5-10.1) L Neutrophils (%) (Auto) 82.3 % (45.0-75.0) H Lymphocytes (%) (Auto) 11.7 % (20.0-45.0) L Monocytes (%) (Auto) 5.5 % (1.0-10.0) Eosinophils (%) (Auto) 0.3 % (0.0-3.0) Basophils (%) (Auto) 0.2 % (0.0-2.0) Sodium Level 146 MMOL/L (136-145) H Potassium Level 2.4 MMOL/L (3.5-5.1) *L Chloride Level 114 MMOL/L (98-107) H Carbon Dioxide Level 25 MMOL/L (21-32) Anion Gap 7 mmol/L (5-15) Blood Urea Nitrogen 7 mg/dL (7-18) Creatinine 0.9 MG/DL (0.55-1.30) Estimat Glomerular Filtration Rate mL/min (>60) Glucose Level 276 MG/DL (74-106) #H Calcium Level 6.9 MG/DL (8.5-10.1) L Phosphorus Level 2.4 MG/DL (2.5-4.9) L Magnesium Level 1.9 MG/DL (1.8-2.4) Total Bilirubin 0.4 MG/DL (0.2-1.0) Aspartate Amino Transf (AST/SGOT) 15 U/L (15-37) Alanine Aminotransferase (ALT/SGPT) 14 U/L (12-78) Alkaline Phosphatase 54 U/L (46-116) C-Reactive Protein, Quantitative 1.4 mg/dL (0.00-0.90) H Total Protein 4.6 G/DL (6.4-8.2) L Albumin 1.7 G/DL (3.4-5.0) L Globulin 2.9 g/dL Albumin/Globulin Ratio 0.6 (1.0-2.7) L Plan Problems: (1) Abdominal distention Assessment & Plan: similar to prior but now patient with more weight loss so distention more prominent soft, no perforation, non tender, but still massively distended discussed with patient at bedside. still having small multiple BM and flatus. no n/v he has functional colonic and bowel problem and not true obstruction discussed consideration for decompression and surgery he states currently he is not considering surgery as an option decompressed by GI with rectal tube stable will monitor advance diet as tolerated picc line for replacement electrolytes will follow with recs thank you There is massive distention of the sigmoid colon with more mild upstream distention of the remainder of the colon. The sigmoid colon measures up to 14 cm in AP dimension. Sigmoid is dilated to a clear transition point just to the right of midline in the pelvis where there is abnormal twisting/swirling of the mesentery around the narrow portion of sigmoid colon. As on the prior exam there is no proximal transition point or narrowing. There is no evidence of free intraperitoneal air or fluid. Some contrast is noted within the rectum. Uncertain if this was administered prior to the current study or if this represents residual from a prior contrast administration. There is a small hiatal hernia. There is thickening of the distal esophagus as well which may suggest esophagitis. There is no evidence of small bowel obstruction. There is mass effect on the intra-abdominal organs related to the markedly distended sigmoid colon. Liver, spleen grossly unremarkable. There is an unchanged indeterminate nodule in the lateral limb of the right adrenal gland which measures up to 1.1 cm. Stable in size compared to the prior exam. There is a large cyst in the upper pole left kidney which measures 6.2 cm. Smaller simple appearing cysts also noted in the left. There is no hydronephrosis or urinary tract stone. Pancreas and bladder grossly unremarkable. The prostate is enlarged and heterogeneous. Abdominal aorta is infrarenal abdominal aorta measures up to 3 cm AP with moderate atherosclerotic calcification. There are degenerative changes in the spine and bilateral hips. There is patchy sclerosis in the visualized osseous structures. No acute fracture. IMPRESSION: * Marked distention of the sigmoid colon up to a abrupt transition in the distal sigmoid where there is swirling in the mesentery concerning for volvulus. Similar to the prior exam no proximal transition point or narrowing is noted, instead there is upstream dilatation of the remainder of the colon. Recommend surgical evaluation and/or colonoscopy. * No evidence of free intraperitoneal air or fluid. * No small bowel obstruction. * Small hiatal hernia with thickening of the distal esophagus suggesting esophagitis. Consider correlation with endoscopy. 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 * Indeterminate right adrenal nodule measuring 1.1 cm, stable compared to the prior exam. * Left renal cysts, largest measures approximately 6.3 cm diameter. * Enlarged and heterogeneous prostate which may be on the basis of BPH. Correlation with prostate exam and PSA however is recommended. * Unusual osseous mineralization with patchy sclerosis, also seen previously and unchanged. This may be on the basis of chronic osteoporotic changes. Consider further evaluation with bone scan. (2) Ileus (3) Gastroparesis (4) Failure to thrive Chava Smith Jul 14, 2019 14:31
[2019-07-14 16:00] VITALS: BP 124/77
--- NOTE | 2019-07-14 19:30 | NUR ---
NURSE NOTES: Received patient from Fermin RN. Patient in bed, alert and oriented x2, on room air, no signs of respiratory distress. Bed in low position, locked, bed alarm on, call light within reach.
[2019-07-14 20:00] VITALS: BP 122/58
[2019-07-14] MEDS: Dyna-Hex 2% Top Sol 2oz TOPIC SCH (21:32)
[2019-07-15] VITALS: BP 154/69
[2019-07-15 04:00] VITALS: BP 132/88
[2019-07-15 05:00] LABS: BASOPHILS % (AUTO) 0.3 % (0.0-2.0); EOSINOPHILS % (AUTO) 0.4 % (0.0-3.0); HEMATOCRIT 34.8 % (42.0-52.0); HEMOGLOBIN 11.7 G/DL (14.2-18.0); LYMPHOCYTES % (AUTO) 15.3 % (20.0-45.0); MEAN CORPUSCULAR VOLUME 92 FL (80-99); MONOCYTES % (AUTO) 4.8 % (1.0-10.0); NEUTROPHILS % (AUTO) 79.1 % (45.0-75.0); PLATELET COUNT 207 K/UL (150-450); RED BLOOD COUNT 3.79 M/UL (4.70-6.10); RED CELL DISTRIBUTION WIDTH 11.9 % (11.6-14.8); WHITE BLOOD COUNT 7.4 K/UL (4.8-10.8)
[2019-07-15] MEDS: Piperacillin/Tazobactam 4.5 GM in NS 110 ML IVPB SCH ×3 (05:23→21:50)
[2019-07-15 05:41] LABS: ALANINE AMINOTRANSFERASE 14 U/L (12-78); ALBUMIN 1.5 G/DL (3.4-5.0); ALBUMIN/GLOBULIN RATIO 0.5 (1.0-2.7); ALKALINE PHOSPHATASE 56 U/L (46-116); ANION GAP 7 mmol/L (5-15); ASPARTATE AMINO TRANSFERASE 17 U/L (15-37); BILIRUBIN,TOTAL 0.4 MG/DL (0.2-1.0); BLOOD UREA NITROGEN 5 mg/dL (7-18); CALCIUM 7.3 MG/DL (8.5-10.1); CARBON DIOXIDE 25 MMOL/L (21-32); CHLORIDE 112 MMOL/L (98-107); CREATININE 0.9 MG/DL (0.55-1.30); PHOSPHORUS 2.2 MG/DL (2.5-4.9); SODIUM 145 MMOL/L (136-145)
[2019-07-15 05:50] LABS: POTASSIUM 2.5 MMOL/L (3.5-5.1)
--- NOTE | 2019-07-15 05:51 | NUR ---
NURSE NOTES: Received call from lab, K+ 2.5, up from 2.4 yesterday.
--- NOTE | 2019-07-15 07:35 | NUR ---
HAND-OFF: Report given to Fermin GOSS. Plan of care endorsed.
[2019-07-15 08:00] VITALS: BP 133/60
[2019-07-15] MEDS: Mesalamine 400mg cap ORAL SCH ×3 (09:00→18:00)
--- NOTE | 2019-07-15 10:26 | Cardiac Electrophysiology PN ---
Assessment/Plan Assessment/Plan 1. Troponin leak. No chest pain or SOB. EKG is ventricularly paced and Echo nl EF 2. Status post [place] pacer. Interrogation showed normal pacemaker function. 3. Severe hypokalemia with Potassium as low as 1.7. On Aldactone 50 bid and more iv and po again. Has central line K still 2.7 4. Hypernatremia getting IV fluid. 5. Possible bowel obstruction. CT scan of abdomen and pelvis showed marked distention of the sigmoid colon. No evidence of free intraperitoneal air or fluid. No small bowel obstruction. Further evaluation by Dr. Smith. WESLEY RN Subjective Subjective No CP or SOB. K replacement via PICC line. RN at bedside Objective Last 24 Hour Vital Signs Date Time Temp Pulse Resp B/P (MAP) Pulse Ox O2 Delivery O2 Flow Rate FiO2 07/15/19 08:01 Room Air 07/15/19 08:00 97.9 60 20 133/60 (84) 97 07/15/19 08:00 60 07/15/19 04:00 97.8 61 19 132/88 (103) 100 07/15/19 04:00 60 07/15/19 00:00 60 07/15/19 00:00 97.3 61 18 154/69 (97) 100 07/14/19 21:00 Room Air 07/14/19 20:00 61 07/14/19 20:00 98.3 61 18 122/58 (79) 100 07/14/19 16:00 60 07/14/19 16:00 97.4 60 17 124/77 (93) 98 07/14/19 12:00 60 07/14/19 12:00 98.8 60 16 119/89 (99) 99 Intake and Output 07/14/19 07/15/19 19:00 07:00 Intake Total 140 ml Balance 140 ml Intake Oral 140 ml # Voids 2 # Bowel Movements 2 Laboratory Tests Test 07/15/19 04:50 White Blood Count 7.4 K/UL (4.8-10.8) Red Blood Count 3.79 M/UL (4.70-6.10) L Hemoglobin 11.7 G/DL (14.2-18.0) L Hematocrit 34.8 % (42.0-52.0) L Mean Corpuscular Volume 92 FL (80-99) Mean Corpuscular Hemoglobin 30.8 PG (27.0-31.0) Mean Corpuscular Hemoglobin Concent 33.6 G/DL (32.0-36.0) Red Cell Distribution Width 11.9 % (11.6-14.8) Platelet Count 207 K/UL (150-450) Mean Platelet Volume 5.8 FL (6.5-10.1) L Neutrophils (%) (Auto) 79.1 % (45.0-75.0) H Lymphocytes (%) (Auto) 15.3 % (20.0-45.0) L Monocytes (%) (Auto) 4.8 % (1.0-10.0) Eosinophils (%) (Auto) 0.4 % (0.0-3.0) Basophils (%) (Auto) 0.3 % (0.0-2.0) Sodium Level 145 MMOL/L (136-145) Potassium Level 2.5 MMOL/L (3.5-5.1) *L Chloride Level 112 MMOL/L (98-107) H Carbon Dioxide Level 25 MMOL/L (21-32) Anion Gap 7 mmol/L (5-15) Blood Urea Nitrogen 5 mg/dL (7-18) L Creatinine 0.9 MG/DL (0.55-1.30) Estimat Glomerular Filtration Rate mL/min (>60) Glucose Level 106 MG/DL (74-106) # Uric Acid 3.3 MG/DL (2.6-7.2) Calcium Level 7.3 MG/DL (8.5-10.1) L Phosphorus Level 2.2 MG/DL (2.5-4.9) L Magnesium Level 1.8 MG/DL (1.8-2.4) Total Bilirubin 0.4 MG/DL (0.2-1.0) Aspartate Amino Transf (AST/SGOT) 17 U/L (15-37) Alanine Aminotransferase (ALT/SGPT) 14 U/L (12-78) Alkaline Phosphatase 56 U/L (46-116) Total Protein 4.7 G/DL (6.4-8.2) L Albumin 1.5 G/DL (3.4-5.0) L Globulin 3.2 g/dL Albumin/Globulin Ratio 0.5 (1.0-2.7) L Objective HEAD AND NECK: No JVD. LUNGS: Clear. CARDIOVASCULAR: Regular S1 and S2 with no gallop. 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 ABDOMEN: Distended. EXTREMITIES: No pitting edema. Cedric Bernard MD Jul 15, 2019 10:26
[2019-07-15] MEDS: Heparin 5000 units/ml inj SUBQ SCH ×2 (10:31→20:37)
--- NOTE | 2019-07-15 10:31 | General Progress Note ---
Assessment/Plan Problem List: (1) Hypokalemia ICD Codes: E87.6 - Hypokalemia SNOMED: 27388440 (2) Dehydration ICD Codes: E86.0 - Dehydration SNOMED: 37070155 (3) Failure to thrive SNOMED: 63474275 Qualifiers: Qualified Codes: R62.7 - Adult failure to thrive (4) Volvulus ICD Codes: K56.2 - Volvulus SNOMED: 7043155 (5) Abdominal distention ICD Codes: R14.0 - Abdominal distension (gaseous) SNOMED: 47563325 (6) HTN (hypertension) ICD Codes: I10 - Essential (primary) hypertension SNOMED: 14891706 (7) Diabetes mellitus ICD Codes: E11.9 - Type 2 diabetes mellitus without complications SNOMED: 26740243 Status: stable Assessment/Plan: Assessment/Plan rectal tube for colonic decompression correct K serial imaging prn prn transfusions follow labs Subjective Allergies: Coded Allergies: No Known Allergies (Unverified , 04/22/17) Objective Last 24 Hour Vital Signs Date Time Temp Pulse Resp B/P (MAP) Pulse Ox O2 Delivery O2 Flow Rate FiO2 07/15/19 08:01 Room Air 07/15/19 08:00 97.9 60 20 133/60 (84) 97 07/15/19 08:00 60 07/15/19 04:00 97.8 61 19 132/88 (103) 100 07/15/19 04:00 60 07/15/19 00:00 60 07/15/19 00:00 97.3 61 18 154/69 (97) 100 07/14/19 21:00 Room Air 07/14/19 20:00 61 07/14/19 20:00 98.3 61 18 122/58 (79) 100 07/14/19 16:00 60 07/14/19 16:00 97.4 60 17 124/77 (93) 98 07/14/19 12:00 60 07/14/19 12:00 98.8 60 16 119/89 (99) 99 Intake and Output 07/14/19 07/15/19 19:00 07:00 Intake Total 140 ml Balance 140 ml Intake Oral 140 ml # Voids 2 # Bowel Movements 2 Laboratory Tests 07/15/19 04:50: White Blood Count 7.4, Red Blood Count 3.79L, Hemoglobin 11.7L, Hematocrit 34.8L , Mean Corpuscular Volume 92, Mean Corpuscular Hemoglobin 30.8, Mean Corpuscular Hemoglobin Concent 33.6, Red Cell Distribution Width 11.9, Platelet Count 207, Mean Platelet Volume 5.8L, Neutrophils (%) (Auto) 79.1H, Lymphocytes (%) (Auto) 15.3L, Monocytes (%) (Auto) 4.8, Eosinophils (%) (Auto) 0.4, Basophils (%) (Auto) 0.3, Sodium Level 145, Potassium Level 2.5*L, Chloride Level 112H, Carbon Dioxide Level 25, Anion Gap 7, Blood Urea Nitrogen 5L, Creatinine 0.9, Estimat Glomerular Filtration Rate , Glucose Level 106#, Uric Acid 3.3, Calcium Level 7.3L, Phosphorus Level 2.2L, Magnesium Level 1.8, Total Bilirubin 0.4, Aspartate Amino Transf (AST/SGOT) 17, Alanine Aminotransferase ( ALT/SGPT) 14, Alkaline Phosphatase 56, Total Protein 4.7L, Albumin 1.5L, Globulin 3.2, Albumin/Globulin Ratio 0.5L Height (Feet): 5 Height (Inches): 10.00 Weight (Pounds): 151 General Appearance: no apparent distress EENT: normal ENT inspection Neck: supple Cardiovascular: normal rate Respiratory/Chest: decreased breath sounds Abdomen: soft, hypoactive bowel sounds, distended Extremities: non-tender Tavares Ortiz MD Jul 15, 2019 10:31
--- NOTE | 2019-07-15 10:41 | Nephrology Progress Note ---
Assessment/Plan Problem List: (1) Hypokalemia Assessment: due to diarrhea (2) Dehydration (3) Failure to thrive (4) Elevated troponin (5) Abdominal distention Assessment HypoKalemia Severe UTI HTN Ileus FFT troponin Leak Pacemaker Plan patient refuses PO meds most of the time trial lomotil K supplement IV and PO resume Aldactone resume Asacol monitor lytes per orders check TSH Subjective ROS Limited/Unobtainable: No Constitutional: Reports: malaise, weakness Objective Objective Last 24 Hour Vital Signs Date Time Temp Pulse Resp B/P (MAP) Pulse Ox O2 Delivery O2 Flow Rate FiO2 07/15/19 08:01 Room Air 07/15/19 08:00 97.9 60 20 133/60 (84) 97 07/15/19 08:00 60 07/15/19 04:00 97.8 61 19 132/88 (103) 100 07/15/19 04:00 60 07/15/19 00:00 60 07/15/19 00:00 97.3 61 18 154/69 (97) 100 07/14/19 21:00 Room Air 07/14/19 20:00 61 07/14/19 20:00 98.3 61 18 122/58 (79) 100 07/14/19 16:00 60 07/14/19 16:00 97.4 60 17 124/77 (93) 98 07/14/19 12:00 60 07/14/19 12:00 98.8 60 16 119/89 (99) 99 Intake and Output 07/14/19 07/15/19 19:00 07:00 Intake Total 140 ml Balance 140 ml Intake Oral 140 ml # Voids 2 # Bowel Movements 2 Laboratory Tests 07/15/19 04:50: White Blood Count 7.4, Red Blood Count 3.79L, Hemoglobin 11.7L, Hematocrit 34.8L , Mean Corpuscular Volume 92, Mean Corpuscular Hemoglobin 30.8, Mean Corpuscular Hemoglobin Concent 33.6, Red Cell Distribution Width 11.9, Platelet Count 207, Mean Platelet Volume 5.8L, Neutrophils (%) (Auto) 79.1H, Lymphocytes (%) (Auto) 15.3L, Monocytes (%) (Auto) 4.8, Eosinophils (%) (Auto) 0.4, Basophils (%) (Auto) 0.3, Sodium Level 145, Potassium Level 2.5*L, Chloride Level 112H, Carbon Dioxide Level 25, Anion Gap 7, Blood Urea Nitrogen 5L, Creatinine 0.9, Estimat Glomerular Filtration Rate , Glucose Level 106#, Uric Acid 3.3, Calcium Level 7.3L, Phosphorus Level 2.2L, Magnesium Level 1.8, Total Bilirubin 0.4, Aspartate Amino Transf (AST/SGOT) 17, Alanine Aminotransferase ( ALT/SGPT) 14, Alkaline Phosphatase 56, Total Protein 4.7L, Albumin 1.5L, Globulin 3.2, Albumin/Globulin Ratio 0.5L Height (Feet): 5 Height (Inches): 10.00 Weight (Pounds): 151 General Appearance: lethargic, other - uncooporative Respiratory/Chest: decreased breath sounds Abdomen: distended Herve Marshall MD Jul 15, 2019 10:41
[2019-07-15] MEDS ORDERED: Lomotil 2.5mg tab ORAL SCH (10:45)
[2019-07-15] MEDS ORDERED: Loperamide 2mg cap ORAL PRN (11:45)
[2019-07-15 12:00] VITALS: BP 142/68
[2019-07-15] MEDS ORDERED: Zolpidem 5mg tab ORAL PRN (13:21)
[2019-07-15] MEDS: Spironolactone 50mg tab ORAL SCH ×2 (14:00→21:42)
[2019-07-15] MEDS ORDERED: Lomotil 2.5mg tab ORAL PRN (14:45)
--- NOTE | 2019-07-15 14:51 | Infectious Diseases Prog Note ---
Assessment/Plan Assessment/Plan IMPRESSION: line infiltration,ulceration in R leg UTI with E. 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 RECOMMENDATIONS: Continue Zosyn Subjective ROS Limited/Unobtainable: Yes Constitutional: Reports: no symptoms Allergies: Coded Allergies: No Known Allergies (Unverified , 04/22/17) Objective Vital Signs Last 24 Hour Vital Signs Date Time Temp Pulse Resp B/P (MAP) Pulse Ox O2 Delivery O2 Flow Rate FiO2 07/15/19 12:00 60 07/15/19 12:00 97.3 60 20 142/68 (92) 97 07/15/19 08:01 Room Air 07/15/19 08:00 97.9 60 20 133/60 (84) 97 07/15/19 08:00 60 07/15/19 04:00 97.8 61 19 132/88 (103) 100 07/15/19 04:00 60 07/15/19 00:00 60 07/15/19 00:00 97.3 61 18 154/69 (97) 100 07/14/19 21:00 Room Air 07/14/19 20:00 61 07/14/19 20:00 98.3 61 18 122/58 (79) 100 07/14/19 16:00 60 07/14/19 16:00 97.4 60 17 124/77 (93) 98 Height (Feet): 5 Height (Inches): 10.00 Weight (Pounds): 151 General Appearance: no acute distress HEENT: mucous membranes moist Respiratory/Chest: lungs clear Cardiovascular: normal rate, pacemaker/AICD, other - PICC line Abdomen: soft, non tender Extremities: no edema Skin: other - extensive ulcer in right leg Neurologic/Psychiatric: alert, responsive Laboratory Tests Test 07/15/19 04:50 White Blood Count 7.4 K/UL (4.8-10.8) Red Blood Count 3.79 M/UL (4.70-6.10) L Hemoglobin 11.7 G/DL (14.2-18.0) L Hematocrit 34.8 % (42.0-52.0) L Mean Corpuscular Volume 92 FL (80-99) Mean Corpuscular Hemoglobin 30.8 PG (27.0-31.0) Mean Corpuscular Hemoglobin Concent 33.6 G/DL (32.0-36.0) Red Cell Distribution Width 11.9 % (11.6-14.8) Platelet Count 207 K/UL (150-450) Mean Platelet Volume 5.8 FL (6.5-10.1) L Neutrophils (%) (Auto) 79.1 % (45.0-75.0) H Lymphocytes (%) (Auto) 15.3 % (20.0-45.0) L Monocytes (%) (Auto) 4.8 % (1.0-10.0) Eosinophils (%) (Auto) 0.4 % (0.0-3.0) Basophils (%) (Auto) 0.3 % (0.0-2.0) Sodium Level 145 MMOL/L (136-145) Potassium Level 2.5 MMOL/L (3.5-5.1) *L Chloride Level 112 MMOL/L (98-107) H Carbon Dioxide Level 25 MMOL/L (21-32) Anion Gap 7 mmol/L (5-15) Blood Urea Nitrogen 5 mg/dL (7-18) L Creatinine 0.9 MG/DL (0.55-1.30) Estimat Glomerular Filtration Rate mL/min (>60) Glucose Level 106 MG/DL (74-106) # Uric Acid 3.3 MG/DL (2.6-7.2) Calcium Level 7.3 MG/DL (8.5-10.1) L Phosphorus Level 2.2 MG/DL (2.5-4.9) L Magnesium Level 1.8 MG/DL (1.8-2.4) Total Bilirubin 0.4 MG/DL (0.2-1.0) Aspartate Amino Transf (AST/SGOT) 17 U/L (15-37) Alanine Aminotransferase (ALT/SGPT) 14 U/L (12-78) Alkaline Phosphatase 56 U/L (46-116) Total Protein 4.7 G/DL (6.4-8.2) L Albumin 1.5 G/DL (3.4-5.0) L Globulin 3.2 g/dL Albumin/Globulin Ratio 0.5 (1.0-2.7) L Current Medications Medications (Trade) Dose Ordered Sig/Kevin Route PRN Reason Start Time Stop Time Status Last Admin Dose Admin Acetaminophen (Tylenol) 650 mg Q4H PRN ORAL Mild Pain/Temp > 100.5 07/09/19 20:00 08/08/19 19:59 07/11/19 11:40 Chlorhexidine Gluconate (Alejandrina-Hex 2%) 1 applic DAILY@2000 TOPIC 07/13/19 20:00 08/12/19 19:59 07/14/19 21:32 Dextrose 1,000 ml @ 50 mls/hr Q20H IV 07/11/19 12:00 08/10/19 11:59 07/14/19 21:32 Diphenhydramine HCl (Benadryl) 25 mg Q6H PRN ORAL Itching 07/09/19 20:00 08/08/19 19:59 Diphenoxylate HCl/ Atropine (Lomotil) 2.5 mg Q4H PRN ORAL Diarrhea 07/15/19 14:45 08/14/19 14:44 Heparin Sodium (Porcine) (Heparin 5000 units/ml) 5,000 units EVERY 12 HOURS SUBQ 07/09/19 21:00 08/08/19 20:59 07/15/19 10:31 Loperamide HCl (Imodium) 2 mg Q4H PRN ORAL Diarrhea 07/15/19 11:45 08/14/19 11:44 Mesalamine (Asacol) 1,600 mg THREE TIMES A DAY ORAL 07/11/19 13:00 08/10/19 12:59 07/14/19 18:19 Piperacillin Sod/ Tazobactam Sod 4.5 gm/Sodium Chloride 110 ml @ 27.5 mls/hr EVERY 8 HOURS IVPB 07/14/19 14:00 07/19/19 13:59 07/15/19 14:00 Potassium Chloride 100 ml @ 100 mls/hr Q1H IVPB 07/15/19 12:00 07/15/19 21:59 07/15/19 14:29 Potassium Chloride (K-Dur) 40 meq QID ORAL 07/13/19 13:00 08/11/19 12:59 07/14/19 18:19 Spironolactone (Aldactone) 50 mg EVERY 8 HOURS ORAL 07/15/19 14:00 08/10/19 11:59 Zolpidem Tartrate (Ambien) 5 mg HSPRN PRN ORAL Insomnia 07/15/19 13:21 07/22/19 13:20 Micky Avilez MD Jul 15, 2019 14:51
[2019-07-15 16:00] VITALS: BP 137/71
--- NOTE | 2019-07-15 17:10 | Surgery Progress Note ---
Surgery Progress Note Subjective Additional Comments tolerating diet no complaints output in rectal tube exam stable labs noted Objective Last 24 Hour Vital Signs Date Time Temp Pulse Resp B/P (MAP) Pulse Ox O2 Delivery O2 Flow Rate FiO2 07/15/19 12:00 60 07/15/19 12:00 97.3 60 20 142/68 (92) 97 07/15/19 08:01 Room Air 07/15/19 08:00 97.9 60 20 133/60 (84) 97 07/15/19 08:00 60 07/15/19 04:00 97.8 61 19 132/88 (103) 100 07/15/19 04:00 60 07/15/19 00:00 60 07/15/19 00:00 97.3 61 18 154/69 (97) 100 07/14/19 21:00 Room Air 07/14/19 20:00 61 07/14/19 20:00 98.3 61 18 122/58 (79) 100 I&O Intake and Output 07/14/19 07/15/19 18:59 06:59 Intake Total 260 ml Balance 260 ml Intake Oral 260 ml # Voids 2 # Bowel Movements 2 Cardiovascular: RSR Abdomen: soft, flat, non-tender, decreased bowel sounds Extremities: no tenderness, no cyanosis Laboratory Tests Test 07/15/19 04:50 White Blood Count 7.4 K/UL (4.8-10.8) Red Blood Count 3.79 M/UL (4.70-6.10) L Hemoglobin 11.7 G/DL (14.2-18.0) L Hematocrit 34.8 % (42.0-52.0) L Mean Corpuscular Volume 92 FL (80-99) Mean Corpuscular Hemoglobin 30.8 PG (27.0-31.0) Mean Corpuscular Hemoglobin Concent 33.6 G/DL (32.0-36.0) Red Cell Distribution Width 11.9 % (11.6-14.8) Platelet Count 207 K/UL (150-450) Mean Platelet Volume 5.8 FL (6.5-10.1) L Neutrophils (%) (Auto) 79.1 % (45.0-75.0) H Lymphocytes (%) (Auto) 15.3 % (20.0-45.0) L Monocytes (%) (Auto) 4.8 % (1.0-10.0) Eosinophils (%) (Auto) 0.4 % (0.0-3.0) Basophils (%) (Auto) 0.3 % (0.0-2.0) Sodium Level 145 MMOL/L (136-145) Potassium Level 2.5 MMOL/L (3.5-5.1) *L Chloride Level 112 MMOL/L (98-107) H Carbon Dioxide Level 25 MMOL/L (21-32) Anion Gap 7 mmol/L (5-15) Blood Urea Nitrogen 5 mg/dL (7-18) L Creatinine 0.9 MG/DL (0.55-1.30) Estimat Glomerular Filtration Rate mL/min (>60) Glucose Level 106 MG/DL (74-106) # Uric Acid 3.3 MG/DL (2.6-7.2) Calcium Level 7.3 MG/DL (8.5-10.1) L Phosphorus Level 2.2 MG/DL (2.5-4.9) L Magnesium Level 1.8 MG/DL (1.8-2.4) Total Bilirubin 0.4 MG/DL (0.2-1.0) Aspartate Amino Transf (AST/SGOT) 17 U/L (15-37) Alanine Aminotransferase (ALT/SGPT) 14 U/L (12-78) Alkaline Phosphatase 56 U/L (46-116) Total Protein 4.7 G/DL (6.4-8.2) L Albumin 1.5 G/DL (3.4-5.0) L Globulin 3.2 g/dL Albumin/Globulin Ratio 0.5 (1.0-2.7) L Plan Problems: (1) Abdominal distention Assessment & Plan: similar to prior but now patient with more weight loss so distention more prominent soft, no perforation, non tender, but still massively distended discussed with patient at bedside. still having small multiple BM and flatus. no n/v he has functional colonic and bowel problem and not true obstruction discussed consideration for decompression and surgery he states currently he is not considering surgery as an option decompressed by GI with rectal tube stable will monitor advance diet as tolerated picc line for replacement electrolytes AM labs will discuss with GI when to remove rectal tube will follow with recs thank you There is massive distention of the sigmoid colon with more mild upstream distention of the remainder of the colon. The sigmoid colon measures up to 14 cm in AP dimension. Sigmoid is dilated to a clear transition point just to the right of midline in the pelvis where there is abnormal twisting/swirling of the mesentery around the narrow portion of sigmoid colon. As on the prior exam there is no proximal transition point or narrowing. There is no evidence of free intraperitoneal air or fluid. Some contrast is noted within the rectum. Uncertain if this was administered prior to the current study or if this represents residual from a prior contrast administration. There is a small hiatal hernia. There is thickening of the distal esophagus as well which may suggest esophagitis. There is no evidence of small bowel obstruction. There is mass effect on the intra-abdominal organs related to the markedly distended sigmoid colon. Liver, spleen grossly unremarkable. There is an unchanged indeterminate nodule in the lateral limb of the right adrenal gland which measures up to 1.1 cm. Stable in size compared to the prior exam. There is a large cyst in the upper pole left kidney which measures 6.2 cm. Smaller simple appearing cysts also noted in the left. There is no hydronephrosis or urinary tract stone. Pancreas and bladder grossly unremarkable. The prostate is enlarged and heterogeneous. Abdominal aorta is infrarenal abdominal aorta measures up to 3 cm AP with moderate atherosclerotic calcification. There are degenerative changes in the spine and bilateral hips. There is patchy sclerosis in the visualized osseous structures. No acute fracture. IMPRESSION: * Marked distention of the sigmoid colon up to a abrupt transition in the distal sigmoid where there is swirling in the mesentery concerning for volvulus. Similar to the prior exam no proximal transition point or narrowing is noted, instead there is upstream dilatation of the remainder of the colon. Recommend surgical evaluation and/or colonoscopy. * No evidence of free intraperitoneal air or fluid. * No small bowel obstruction. * Small hiatal hernia with thickening of the distal esophagus suggesting esophagitis. Consider correlation with endoscopy. 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 * Indeterminate right adrenal nodule measuring 1.1 cm, stable compared to the prior exam. * Left renal cysts, largest measures approximately 6.3 cm diameter. * Enlarged and heterogeneous prostate which may be on the basis of BPH. Correlation with prostate exam and PSA however is recommended. * Unusual osseous mineralization with patchy sclerosis, also seen previously and unchanged. This may be on the basis of chronic osteoporotic changes. Consider further evaluation with bone scan. (2) Ileus (3) Gastroparesis (4) Failure to thrive Chava Smith Jul 15, 2019 17:10
--- NOTE | 2019-07-15 19:30 | NUR ---
NURSE NOTES: Received patient from Fermin GOSS. Patient in bed, on room air, no signs of respiratory distress. PICC on BEBETO, dressing clean, dry, and intact, last changed 07/15. Bed in low position, locked, bed alarm on, call light within reach. Dressing on right lower extremity intact.
--- NOTE | 2019-07-15 19:47 | Hematology/Onc Progress Note ---
Assessment/Plan Assessment/Plan Assessment and Recs: # Failure to thrive (FTT) - decreased bmi and low protein, protein decreased, decreased po intake --> cea is 7.1, as per gi eval --> will also obtain q3d caloric counts --> mirtazapine as appetite stimulant --> GI consult has ordered, appreciate recs --> may need a gtube --> Psa is wnl # Anemia of chronic disease due to underlying chronic medical issues, multifactorial --> Anemia workup has been ordered, rule out gi bleed --> No evidence of hemolysis is noted, peripheral smear has been reviewed. --> Hgb goal >7. Transfuse prn. --> Epogen or iron at this time is not particularly indicated --> Medications have been reviewed # Abdominal pain r/o volvulus, has been evaluated by surg and gi in the past, egd/colo completed as well in past --> rectal tube inserted as per gi --> trial po intake --> as per gi and surg recs # Episode of generalized weakness --> cea is 7.1, as per gi team --> ivf have been started # Encephalopathy --> neuro eval as needed # Dehydration --> per renal # [facility] Pacemaker - as per cards # Troponin leak # Dvt ppx with heparin sq Greatly appreciate consultation. Subjective Allergies: Coded Allergies: No Known Allergies (Unverified , 04/22/17) Subjective 07/11: no events, no bleeding, rectal tube flused, basilio Rn 07/12: no f/c, no bleeding, basilio rn, rect tube in place, bp is mildly high 07/13: no events to report, no bleeding noted, xray abd repeat, k given 07/14: no events, rectal tube in place but leaking, yes k given 07/15: no bleeding or chills, labs reviewed, no f/c, hgb stable Objective Objective Current Medications Medications (Trade) Dose Ordered Sig/Kevin Route PRN Reason Start Time Stop Time Status Last Admin Dose Admin Acetaminophen (Tylenol) 650 mg Q4H PRN ORAL Mild Pain/Temp > 100.5 07/09/19 20:00 08/08/19 19:59 07/11/19 11:40 Chlorhexidine Gluconate (Alejandrina-Hex 2%) 1 applic DAILY@1999 TOPIC 07/13/19 20:00 08/12/19 19:59 07/14/19 21:32 Dextrose 1,000 ml @ 50 mls/hr Q20H IV 07/11/19 12:00 08/10/19 11:59 07/15/19 16:00 Diphenhydramine HCl (Benadryl) 25 mg Q6H PRN ORAL Itching 07/09/19 20:00 08/08/19 19:59 Diphenoxylate HCl/ Atropine (Lomotil) 2.5 mg Q4H PRN ORAL Diarrhea 07/15/19 14:45 08/14/19 14:44 Heparin Sodium (Porcine) (Heparin 5000 units/ml) 5,000 units EVERY 12 HOURS SUBQ 07/09/19 21:00 08/08/19 20:59 07/15/19 10:31 Loperamide HCl (Imodium) 2 mg Q4H PRN ORAL Diarrhea 07/15/19 11:45 08/14/19 11:44 Mesalamine (Asacol) 1,600 mg THREE TIMES A DAY ORAL 07/11/19 13:00 08/10/19 12:59 07/14/19 18:19 Piperacillin Sod/ Tazobactam Sod 4.5 gm/Sodium Chloride 110 ml @ 27.5 mls/hr EVERY 8 HOURS IVPB 07/14/19 14:00 07/19/19 13:59 07/15/19 14:00 Potassium Chloride 100 ml @ 100 mls/hr Q1H IVPB 07/15/19 12:00 07/15/19 21:59 07/15/19 17:18 Potassium Chloride (K-Dur) 40 meq QID ORAL 07/13/19 13:00 08/11/19 12:59 07/14/19 18:19 Spironolactone (Aldactone) 50 mg EVERY 8 HOURS ORAL 07/15/19 14:00 08/10/19 11:59 Zolpidem Tartrate (Ambien) 5 mg HSPRN PRN ORAL Insomnia 07/15/19 13:21 07/22/19 13:20 Last 24 Hour Vital Signs Date Time Temp Pulse Resp B/P (MAP) Pulse Ox O2 Delivery O2 Flow Rate FiO2 07/15/19 16:00 97.2 60 18 137/71 (93) 97 07/15/19 16:00 60 07/15/19 12:00 60 07/15/19 12:00 97.3 60 20 142/68 (92) 97 07/15/19 08:01 Room Air 07/15/19 08:00 97.9 60 20 133/60 (84) 97 07/15/19 08:00 60 07/15/19 04:00 97.8 61 19 132/88 (103) 100 07/15/19 04:00 60 07/15/19 00:00 60 07/15/19 00:00 97.3 61 18 154/69 (97) 100 07/14/19 21:00 Room Air 07/14/19 20:00 61 07/14/19 20:00 98.3 61 18 122/58 (79) 100 07/14/19 16:00 60 07/14/19 16:00 97.4 60 17 124/77 (93) 98 07/14/19 12:00 60 07/14/19 12:00 98.8 60 16 119/89 (99) 99 07/14/19 09:00 Room Air 07/14/19 08:00 60 07/14/19 08:00 97.4 60 18 114/61 (78) 98 07/14/19 04:00 60 07/14/19 04:00 98.8 60 18 152/72 (98) 99 07/14/19 00:00 60 07/14/19 00:00 98.2 60 18 147/74 (98) 100 07/13/19 21:00 Room Air 07/13/19 20:00 60 07/13/19 20:00 98.0 60 16 120/63 (82) 100 Intake and Output 07/14/19 07/15/19 18:59 06:59 Intake Total 260 ml Balance 260 ml Intake Oral 260 ml # Voids 2 # Bowel Movements 2 Labs Test 07/13/19 09:10 07/14/19 06:30 07/15/19 04:50 White Blood Count 11.3 K/UL (4.8-10.8) 8.5 K/UL (4.8-10.8) 7.4 K/UL (4.8-10.8) Red Blood Count 4.69 M/UL (4.70-6.10) 3.62 M/UL (4.70-6.10) 3.79 M/UL (4.70-6.10) Hemoglobin 14.7 G/DL (14.2-18.0) 11.3 G/DL (14.2-18.0) 11.7 G/DL (14.2-18.0) Hematocrit 41.7 % (42.0-52.0) 32.8 % (42.0-52.0) 34.8 % (42.0-52.0) Mean Corpuscular Volume 89 FL (80-99) 91 FL (80-99) 92 FL (80-99) Mean Corpuscular Hemoglobin 31.3 PG (27.0-31.0) 31.3 PG (27.0-31.0) 30.8 PG (27.0-31.0) Mean Corpuscular Hemoglobin Concent 35.2 G/DL (32.0-36.0) 34.5 G/DL (32.0-36.0) 33.6 G/DL (32.0-36.0) Red Cell Distribution Width 11.3 % (11.6-14.8) 12.0 % (11.6-14.8) 11.9 % (11.6-14.8) Platelet Count 263 K/UL (150-450) 199 K/UL (150-450) 207 K/UL (150-450) Mean Platelet Volume 5.4 FL (6.5-10.1) 6.0 FL (6.5-10.1) 5.8 FL (6.5-10.1) Neutrophils (%) (Auto) % (45.0-75.0) 82.3 % (45.0-75.0) 79.1 % (45.0-75.0) Lymphocytes (%) (Auto) % (20.0-45.0) 11.7 % (20.0-45.0) 15.3 % (20.0-45.0) Monocytes (%) (Auto) % (1.0-10.0) 5.5 % (1.0-10.0) 4.8 % (1.0-10.0) Eosinophils (%) (Auto) % (0.0-3.0) 0.3 % (0.0-3.0) 0.4 % (0.0-3.0) Basophils (%) (Auto) % (0.0-2.0) 0.2 % (0.0-2.0) 0.3 % (0.0-2.0) Differential Total Cells Counted 100 Neutrophils % (Manual) 88 % (45-75) Lymphocytes % (Manual) 6 % (20-45) Monocytes % (Manual) 5 % (1-10) Eosinophils % (Manual) 1 % (0-3) Basophils % (Manual) 0 % (0-2) Band Neutrophils 0 % (0-8) Platelet Estimate Adequate Platelet Morphology Normal Red Blood Cell Morphology Normal Sodium Level 142 MMOL/L (136-145) 146 MMOL/L (136-145) 145 MMOL/L (136-145) Potassium Level 2.1 MMOL/L (3.5-5.1) 2.4 MMOL/L (3.5-5.1) 2.5 MMOL/L (3.5-5.1) Chloride Level 109 MMOL/L (98-107) 114 MMOL/L (98-107) 112 MMOL/L (98-107) Carbon Dioxide Level 23 MMOL/L (21-32) 25 MMOL/L (21-32) 25 MMOL/L (21-32) Anion Gap 10 mmol/L (5-15) 7 mmol/L (5-15) 7 mmol/L (5-15) Blood Urea Nitrogen 7 mg/dL (7-18) 7 mg/dL (7-18) 5 mg/dL (7-18) Creatinine 1.0 MG/DL (0.55-1.30) 0.9 MG/DL (0.55-1.30) 0.9 MG/DL (0.55-1.30) Estimat Glomerular Filtration Rate mL/min (>60) mL/min (>60) mL/min (>60) Glucose Level 162 MG/DL (74-106) 276 MG/DL (74-106) 106 MG/DL (74-106) Calcium Level 7.5 MG/DL (8.5-10.1) 6.9 MG/DL (8.5-10.1) 7.3 MG/DL (8.5-10.1) Phosphorus Level 1.8 MG/DL (2.5-4.9) 2.4 MG/DL (2.5-4.9) 2.2 MG/DL (2.5-4.9) Magnesium Level 2.5 MG/DL (1.8-2.4) 1.9 MG/DL (1.8-2.4) 1.8 MG/DL (1.8-2.4) Total Bilirubin 0.5 MG/DL (0.2-1.0) 0.4 MG/DL (0.2-1.0) 0.4 MG/DL (0.2-1.0) Aspartate Amino Transf (AST/SGOT) 21 U/L (15-37) 15 U/L (15-37) 17 U/L (15-37) Alanine Aminotransferase (ALT/SGPT) 18 U/L (12-78) 14 U/L (12-78) 14 U/L (12-78) Alkaline Phosphatase 69 U/L (46-116) 54 U/L (46-116) 56 U/L (46-116) Total Protein 5.8 G/DL (6.4-8.2) 4.6 G/DL (6.4-8.2) 4.7 G/DL (6.4-8.2) Albumin 2.2 G/DL (3.4-5.0) 1.7 G/DL (3.4-5.0) 1.5 G/DL (3.4-5.0) Globulin 3.6 g/dL 2.9 g/dL 3.2 g/dL Albumin/Globulin Ratio 0.6 (1.0-2.7) 0.6 (1.0-2.7) 0.5 (1.0-2.7) C-Reactive Protein, Quantitative 1.4 mg/dL (0.00-0.90) Uric Acid 3.3 MG/DL (2.6-7.2) Micro Microbiology Date/Time Source Procedure Growth Status 07/15/19 15:00 Stool Received Height (Feet): 5 Height (Inches): 10.00 Weight (Pounds): 151 Objective PE General: alert, non-toxic, thin, Chronically Ill HEENT: poor dentition Resp: lungs clear, normal breath sounds CV: regular rate, rhythm GI: normal inspection, non tender, no guarding, no rebound, distended+ : no CVA tenderness ++ rectal tube Sterling Singletary MD Jul 15, 2019 19:47
[2019-07-15 20:00] VITALS: BP 126/64
[2019-07-15] MEDS: Dyna-Hex 2% Top Sol 2oz TOPIC SCH (20:16)
--- NOTE | 2019-07-15 21:28 | General Progress Note ---
Assessment/Plan Problem List: (1) Ileus ICD Codes: K56.7 - Ileus, unspecified SNOMED: 935520493 (2) HTN (hypertension) ICD Codes: I10 - Essential (primary) hypertension SNOMED: 43303986 (3) Volvulus ICD Codes: K56.2 - Volvulus SNOMED: 9911386 (4) Abdominal distention ICD Codes: R14.0 - Abdominal distension (gaseous) SNOMED: 02321655 (5) Elevated troponin ICD Codes: R79.89 - Other specified abnormal findings of blood chemistry SNOMED: 913846475, 736267078, 676461396 (6) Hypokalemia ICD Codes: E87.6 - Hypokalemia SNOMED: 02214987 Status: stable Assessment/Plan: still low k replacement per dr mcarthur afebrile cellulitis of le improving lornavulos is chronic dehydration is improving Subjective ROS Limited/Unobtainable: Yes Allergies: Coded Allergies: No Known Allergies (Unverified , 04/22/17) Objective Last 24 Hour Vital Signs Date Time Temp Pulse Resp B/P (MAP) Pulse Ox O2 Delivery O2 Flow Rate FiO2 07/15/19 20:00 98.0 62 18 126/64 (84) 100 07/15/19 16:00 97.2 60 18 137/71 (93) 97 07/15/19 16:00 60 07/15/19 12:00 60 07/15/19 12:00 97.3 60 20 142/68 (92) 97 07/15/19 08:01 Room Air 07/15/19 08:00 97.9 60 20 133/60 (84) 97 07/15/19 08:00 60 07/15/19 04:00 97.8 61 19 132/88 (103) 100 07/15/19 04:00 60 07/15/19 00:00 60 07/15/19 00:00 97.3 61 18 154/69 (97) 100 Intake and Output 07/14/19 07/15/19 19:00 07:00 Intake Total 140 ml Balance 140 ml Intake Oral 140 ml # Voids 2 # Bowel Movements 2 Laboratory Tests 07/15/19 04:50: White Blood Count 7.4, Red Blood Count 3.79L, Hemoglobin 11.7L, Hematocrit 34.8L , Mean Corpuscular Volume 92, Mean Corpuscular Hemoglobin 30.8, Mean Corpuscular Hemoglobin Concent 33.6, Red Cell Distribution Width 11.9, Platelet Count 207, Mean Platelet Volume 5.8L, Neutrophils (%) (Auto) 79.1H, Lymphocytes (%) (Auto) 15.3L, Monocytes (%) (Auto) 4.8, Eosinophils (%) (Auto) 0.4, Basophils (%) (Auto) 0.3, Sodium Level 145, Potassium Level 2.5*L, Chloride Level 112H, Carbon Dioxide Level 25, Anion Gap 7, Blood Urea Nitrogen 5L, Creatinine 0.9, Estimat Glomerular Filtration Rate , Glucose Level 106#, Uric Acid 3.3, Calcium Level 7.3L, Phosphorus Level 2.2L, Magnesium Level 1.8, Total Bilirubin 0.4, Aspartate Amino Transf (AST/SGOT) 17, Alanine Aminotransferase ( ALT/SGPT) 14, Alkaline Phosphatase 56, Total Protein 4.7L, Albumin 1.5L, Globulin 3.2, Albumin/Globulin Ratio 0.5L Height (Feet): 5 Height (Inches): 10.00 Weight (Pounds): 151 Respiratory/Chest: lungs clear Abdomen: distended Jose Francisco Chand MD Jul 15, 2019 21:28
[2019-07-16] VITALS: BP 145/68
[2019-07-16 04:00] VITALS: BP 123/66
[2019-07-16] MEDS: Piperacillin/Tazobactam 4.5 GM in NS 110 ML IVPB SCH ×3 (05:35→20:52)
[2019-07-16] MEDS: Spironolactone 50mg tab ORAL SCH ×3 (06:00→22:00)
--- NOTE | 2019-07-16 07:10 | NUR ---
NURSE NOTES: Received report from ANA PAULA Carranza. Patient is awake and orientated x 2. PICC is intact and patent. Leg wound dressing currently dry. R leg elevated on pillow. Patient is on room air breathing even and unlabored. patient is on cardiac monitoring. Side rails x3 are elevated, bed in lowest position, bed locked. Will follow up with plan of care.
[2019-07-16 07:36] LABS: HEMATOCRIT 34.7 % (42.0-52.0); HEMOGLOBIN 11.9 G/DL (14.2-18.0); MEAN CORPUSCULAR VOLUME 92 FL (80-99); PLATELET COUNT 210 K/UL (150-450); RED BLOOD COUNT 3.76 M/UL (4.70-6.10); WHITE BLOOD COUNT 12.4 K/UL (4.8-10.8)
[2019-07-16 07:59] LABS: ALANINE AMINOTRANSFERASE 17 U/L (12-78); ALBUMIN 1.6 G/DL (3.4-5.0); ALBUMIN/GLOBULIN RATIO 0.6 (1.0-2.7); ALKALINE PHOSPHATASE 63 U/L (46-116); ANION GAP 9 mmol/L (5-15); ASPARTATE AMINO TRANSFERASE 15 U/L (15-37); BILIRUBIN,TOTAL 0.4 MG/DL (0.2-1.0); BLOOD UREA NITROGEN 6 mg/dL (7-18); CALCIUM 7.2 MG/DL (8.5-10.1); CARBON DIOXIDE 24 MMOL/L (21-32); CHLORIDE 111 MMOL/L (98-107); PHOSPHORUS 1.5 MG/DL (2.5-4.9); POTASSIUM 3.8 MMOL/L (3.5-5.1); SODIUM 144 MMOL/L (136-145)
[2019-07-16 08:00] VITALS: BP 135/69
[2019-07-16] MEDS: Mesalamine 400mg cap ORAL SCH ×5 (09:00→17:17)
--- NOTE | 2019-07-16 09:06 | Cardiac Electrophysiology PN ---
Assessment/Plan Assessment/Plan 1. Troponin leak. No chest pain or SOB. EKG is ventricularly paced. Echo nl EF 2. Status post [facility] [facility] pacer. Interrogation showed normal pacemaker function. 3. Severe hypokalemia with Potassium as low as 1.7. On Aldactone 50 bid and more iv and po. Now resolved 4. Hypernatremia better with IV fluid. 5. Possible bowel obstruction. CT scan of abdomen and pelvis showed marked distention of the sigmoid colon. No evidence of free intraperitoneal air or fluid. No small bowel obstruction. Further evaluation by Dr. Smith. WESLEY RN Subjective Subjective No CP or SOB. K better after iv replacement via PICC line. RN at bedside. REctal tube DCed. Objective Last 24 Hour Vital Signs Date Time Temp Pulse Resp B/P (MAP) Pulse Ox O2 Delivery O2 Flow Rate FiO2 07/16/19 04:00 98.9 66 18 123/66 (85) 96 07/16/19 04:00 60 07/16/19 00:00 63 07/16/19 00:00 99.1 61 17 145/68 (93) 98 07/15/19 21:00 Room Air 07/15/19 20:00 98.0 62 18 126/64 (84) 100 07/15/19 20:00 60 07/15/19 16:00 97.2 60 18 137/71 (93) 97 07/15/19 16:00 60 07/15/19 12:00 60 07/15/19 12:00 97.3 60 20 142/68 (92) 97 Intake and Output 07/15/19 07/16/19 19:00 07:00 Intake Total 360 ml Balance 360 ml Intake Oral 360 ml # Voids 3 2 # Bowel Movements 1 Laboratory Tests Test 07/16/19 05:30 White Blood Count 12.4 K/UL (4.8-10.8) #H Red Blood Count 3.76 M/UL (4.70-6.10) L Hemoglobin 11.9 G/DL (14.2-18.0) L Hematocrit 34.7 % (42.0-52.0) L Mean Corpuscular Volume 92 FL (80-99) Mean Corpuscular Hemoglobin 31.5 PG (27.0-31.0) H Mean Corpuscular Hemoglobin Concent 34.2 G/DL (32.0-36.0) Red Cell Distribution Width 12.0 % (11.6-14.8) Platelet Count 210 K/UL (150-450) Mean Platelet Volume 6.3 FL (6.5-10.1) L Neutrophils (%) (Auto) % (45.0-75.0) Lymphocytes (%) (Auto) % (20.0-45.0) Monocytes (%) (Auto) % (1.0-10.0) Eosinophils (%) (Auto) % (0.0-3.0) Basophils (%) (Auto) % (0.0-2.0) Neutrophils % (Manual) Pending Lymphocytes % (Manual) Pending Platelet Estimate Pending Platelet Morphology Pending Sodium Level 144 MMOL/L (136-145) Potassium Level 3.8 MMOL/L (3.5-5.1) # Chloride Level 111 MMOL/L (98-107) H Carbon Dioxide Level 24 MMOL/L (21-32) Anion Gap 9 mmol/L (5-15) Blood Urea Nitrogen 6 mg/dL (7-18) L Creatinine 1.0 MG/DL (0.55-1.30) Estimat Glomerular Filtration Rate mL/min (>60) Glucose Level 76 MG/DL (74-106) Calcium Level 7.2 MG/DL (8.5-10.1) L Phosphorus Level 1.5 MG/DL (2.5-4.9) L Magnesium Level 1.8 MG/DL (1.8-2.4) Total Bilirubin 0.4 MG/DL (0.2-1.0) Aspartate Amino Transf (AST/SGOT) 15 U/L (15-37) Alanine Aminotransferase (ALT/SGPT) 17 U/L (12-78) Alkaline Phosphatase 63 U/L (46-116) Total Protein 4.5 G/DL (6.4-8.2) L Albumin 1.6 G/DL (3.4-5.0) L Globulin 2.9 g/dL Albumin/Globulin Ratio 0.6 (1.0-2.7) L Microbiology Date/Time Source Procedure Growth Status 07/15/19 15:00 Stool Clostridium difficile Toxin Assay - Final Complete Objective HEAD AND NECK: No JVD. LUNGS: Clear. CARDIOVASCULAR: Regular S1 and S2 with no gallop. 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 ABDOMEN: Soft EXTREMITIES: No pitting edema. Cedric Bernard MD Jul 16, 2019 09:06
[2019-07-16] MEDS: Heparin 5000 units/ml inj SUBQ SCH ×2 (09:55→21:02)
--- NOTE | 2019-07-16 10:48 | General Progress Note ---
Assessment/Plan Problem List: (1) Hypokalemia ICD Codes: E87.6 - Hypokalemia SNOMED: 28190387 (2) Dehydration ICD Codes: E86.0 - Dehydration SNOMED: 95640648 (3) Failure to thrive SNOMED: 07837069 Qualifiers: Qualified Codes: R62.7 - Adult failure to thrive (4) Volvulus ICD Codes: K56.2 - Volvulus SNOMED: 6585708 (5) Abdominal distention ICD Codes: R14.0 - Abdominal distension (gaseous) SNOMED: 33033599 (6) HTN (hypertension) ICD Codes: I10 - Essential (primary) hypertension SNOMED: 75103837 (7) Diabetes mellitus ICD Codes: E11.9 - Type 2 diabetes mellitus without complications SNOMED: 53696176 Status: stable Assessment/Plan: Assessment/Plan rectal tube for colonic decompression correct K>> now in normal range serial imaging prn prn transfusions follow labs on imodium, lomotil, mesalamine no have solid stools Subjective ROS Limited/Unobtainable: No Allergies: Coded Allergies: No Known Allergies (Unverified , 04/22/17) Objective Last 24 Hour Vital Signs Date Time Temp Pulse Resp B/P (MAP) Pulse Ox O2 Delivery O2 Flow Rate FiO2 07/16/19 08:00 97.7 62 20 135/69 (91) 96 07/16/19 04:00 98.9 66 18 123/66 (85) 96 07/16/19 04:00 60 07/16/19 00:00 63 07/16/19 00:00 99.1 61 17 145/68 (93) 98 07/15/19 21:00 Room Air 07/15/19 20:00 98.0 62 18 126/64 (84) 100 07/15/19 20:00 60 07/15/19 16:00 97.2 60 18 137/71 (93) 97 07/15/19 16:00 60 07/15/19 12:00 60 07/15/19 12:00 97.3 60 20 142/68 (92) 97 Intake and Output 07/15/19 07/16/19 19:00 07:00 Intake Total 360 ml Balance 360 ml Intake Oral 360 ml # Voids 3 2 # Bowel Movements 1 Laboratory Tests 07/16/19 05:30: White Blood Count 12.4#H, Red Blood Count 3.76L, Hemoglobin 11.9L, Hematocrit 34.7L, Mean Corpuscular Volume 92, Mean Corpuscular Hemoglobin 31.5H, Mean Corpuscular Hemoglobin Concent 34.2, Red Cell Distribution Width 12.0, Platelet Count 210, Mean Platelet Volume 6.3L, Neutrophils (%) (Auto) , Lymphocytes (%) ( Auto) , Monocytes (%) (Auto) , Eosinophils (%) (Auto) , Basophils (%) (Auto) , Differential Total Cells Counted 100, Neutrophils % (Manual) 87H, Lymphocytes % (Manual) 5L, Monocytes % (Manual) 8, Eosinophils % (Manual) 0, Basophils % ( Manual) 0, Band Neutrophils 0, Platelet Estimate Adequate, Platelet Morphology Normal, Red Blood Cell Morphology Normal, Sodium Level 144, Potassium Level 3.8# , Chloride Level 111H, Carbon Dioxide Level 24, Anion Gap 9, Blood Urea Nitrogen 6L, Creatinine 1.0, Estimat Glomerular Filtration Rate , Glucose Level 76, Calcium Level 7.2L, Phosphorus Level 1.5L, Magnesium Level 1.8, Total Bilirubin 0.4, Aspartate Amino Transf (AST/SGOT) 15, Alanine Aminotransferase ( ALT/SGPT) 17, Alkaline Phosphatase 63, Total Protein 4.5L, Albumin 1.6L, Globulin 2.9, Albumin/Globulin Ratio 0.6L Height (Feet): 5 Height (Inches): 10.00 Weight (Pounds): 151 General Appearance: no apparent distress EENT: normal ENT inspection Neck: supple Cardiovascular: normal rate Respiratory/Chest: decreased breath sounds Abdomen: soft, decreased bowel sounds, distended Extremities: non-tender Tavares Ortiz MD Jul 16, 2019 10:48
--- NOTE | 2019-07-16 10:57 | Nephrology Progress Note ---
Assessment/Plan Problem List: (1) Hypokalemia Assessment: due to diarrhea (2) Dehydration (3) Failure to thrive (4) Elevated troponin (5) Abdominal distention Assessment HypoKalemia Severe UTI HTN Ileus FFT troponin Leak Pacemaker Plan patient refuses PO meds most of the time trial lomotil K supplement IV and PO resume Aldactone resume Asacol monitor lytes per orders check TSH Subjective ROS Limited/Unobtainable: No Constitutional: Reports: malaise Objective Objective Last 24 Hour Vital Signs Date Time Temp Pulse Resp B/P (MAP) Pulse Ox O2 Delivery O2 Flow Rate FiO2 07/16/19 08:00 97.7 62 20 135/69 (91) 96 07/16/19 04:00 98.9 66 18 123/66 (85) 96 07/16/19 04:00 60 07/16/19 00:00 63 07/16/19 00:00 99.1 61 17 145/68 (93) 98 07/15/19 21:00 Room Air 07/15/19 20:00 98.0 62 18 126/64 (84) 100 07/15/19 20:00 60 07/15/19 16:00 97.2 60 18 137/71 (93) 97 07/15/19 16:00 60 07/15/19 12:00 60 07/15/19 12:00 97.3 60 20 142/68 (92) 97 Intake and Output 07/15/19 07/16/19 19:00 07:00 Intake Total 360 ml Balance 360 ml Intake Oral 360 ml # Voids 3 2 # Bowel Movements 1 Laboratory Tests 07/16/19 05:30: White Blood Count 12.4#H, Red Blood Count 3.76L, Hemoglobin 11.9L, Hematocrit 34.7L, Mean Corpuscular Volume 92, Mean Corpuscular Hemoglobin 31.5H, Mean Corpuscular Hemoglobin Concent 34.2, Red Cell Distribution Width 12.0, Platelet Count 210, Mean Platelet Volume 6.3L, Neutrophils (%) (Auto) , Lymphocytes (%) ( Auto) , Monocytes (%) (Auto) , Eosinophils (%) (Auto) , Basophils (%) (Auto) , Differential Total Cells Counted 100, Neutrophils % (Manual) 87H, Lymphocytes % (Manual) 5L, Monocytes % (Manual) 8, Eosinophils % (Manual) 0, Basophils % ( Manual) 0, Band Neutrophils 0, Platelet Estimate Adequate, Platelet Morphology Normal, Red Blood Cell Morphology Normal, Sodium Level 144, Potassium Level 3.8# , Chloride Level 111H, Carbon Dioxide Level 24, Anion Gap 9, Blood Urea Nitrogen 6L, Creatinine 1.0, Estimat Glomerular Filtration Rate , Glucose Level 76, Calcium Level 7.2L, Phosphorus Level 1.5L, Magnesium Level 1.8, Total Bilirubin 0.4, Aspartate Amino Transf (AST/SGOT) 15, Alanine Aminotransferase ( ALT/SGPT) 17, Alkaline Phosphatase 63, Total Protein 4.5L, Albumin 1.6L, Globulin 2.9, Albumin/Globulin Ratio 0.6L Height (Feet): 5 Height (Inches): 10.00 Weight (Pounds): 151 General Appearance: no apparent distress Respiratory/Chest: decreased breath sounds Abdomen: distended Herve Marshall MD Jul 16, 2019 10:57
[2019-07-16] MEDS ORDERED: Potassium Phosphate 30 MM in NS 275 ML IV ONE ×2 (11:00→13:30)
--- NOTE | 2019-07-16 11:30 | NUR ---
NURSE NOTES: Transfer patient from room 207-1 to 405-2. Gave report to ANA PAULA Zambrano. Patient is AAOx2. Patient is breathing even and unlabored on room air. Patient has right PICC, patent and intact. Patient has right forearm peripheral line, patent and intact. Patient was changed with in coming WEATHERIZATION FIELD TECHNICIAN. Noted right leg wound and sacral area.
--- NOTE | 2019-07-16 11:38 | NUR ---
RD ASSESSMENT & RECOMMENDATIONS SEE CARE ACTIVITY FOR COMPLETE ASSESSMENT DAILY ESTIMATED NEEDS: Needs based on Underweight, wound/ 64kg 30-35 kcals/kg 1776-5170 total kcals 1.25-1.5 g protein/kg 80-96 g total protein 25-30 mL/kg 3366-3730 total fluid mLs NUTRITION DIAGNOSIS: *Increased kcal and protein needs r/t underweight status, wound healing, as evidenced by BMI underweight per guidelines, 82% [place] Body Weight, open sacral wound, eval pending. CURRENT DIET:CCHO LOW PO DIET RECOMMENDATIONS: Advance as able, Soft diet/ texture per CIVIL DESIGN TECHNICIAN ADDITIONAL RECOMMENDATIONS: * Calibrated bedscale wt for accurate CBW EMR wt: 160# vs Bed wt: 141#, 152# * CIVIL DESIGN TECHNICIAN eval for appropriate texture * Add ENSURE CLEAR w/ CLD * Add Glucerna TID w/ advanced diet/ monitor po intake * F/up w/ WC eval: add VALERY BID if tolerated * Daily monitoring of hydration status/ lytes
--- NOTE | 2019-07-16 11:42 | NUR ---
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 97.7 HR 62 RR 20 B/P 135/69 RA 98% WBC 12.4 PHOS 1.5, K 3.8 IS: K-PHOS IV ZOSYN IV IVF D5 @ 50ML/HR MED/SURG STATUS
[2019-07-16 12:00] VITALS: BP 109/59
--- NOTE | 2019-07-16 12:00 | NUR ---
NURSE NOTES: received patient A/A/Ox2, personal belongings noted. PICC line on the BEBETO patent and intact. wound treatment and wound photos done and taken. VSS. siderails are up x3, bed is in the lowest position. call light is within reach.
--- NOTE | 2019-07-16 12:38 | Infectious Diseases Prog Note ---
Assessment/Plan Assessment/Plan IMPRESSION: line infiltration,ulceration in R leg UTI with E. 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 RECOMMENDATIONS: Continue Zosyn Subjective ROS Limited/Unobtainable: Yes Respiratory: Reports: no symptoms Cardiovascular: Reports: no symptoms Gastrointestinal/Abdominal: Reports: no symptoms Genitourinary: Reports: no symptoms Allergies: Coded Allergies: No Known Allergies (Unverified , 04/22/17) Objective Vital Signs Last 24 Hour Vital Signs Date Time Temp Pulse Resp B/P (MAP) Pulse Ox O2 Delivery O2 Flow Rate FiO2 07/16/19 12:00 98.2 63 18 109/59 (76) 100 07/16/19 08:00 97.7 62 20 135/69 (91) 96 07/16/19 04:00 98.9 66 18 123/66 (85) 96 07/16/19 04:00 60 07/16/19 00:00 63 07/16/19 00:00 99.1 61 17 145/68 (93) 98 07/15/19 21:00 Room Air 07/15/19 20:00 98.0 62 18 126/64 (84) 100 07/15/19 20:00 60 07/15/19 16:00 97.2 60 18 137/71 (93) 97 07/15/19 16:00 60 Height (Feet): 5 Height (Inches): 10.00 Weight (Pounds): 151 General Appearance: no acute distress HEENT: mucous membranes moist Respiratory/Chest: lungs clear Cardiovascular: normal rate, other - R arm PICC line Abdomen: soft, non tender Extremities: no edema Skin: ulcers, other - R leg Neurologic/Psychiatric: alert, responsive Microbiology Date/Time Source Procedure Growth Status 07/15/19 15:00 Stool Stool Culture - Preliminary NORMAL FECAL BARBARA. Resulted 07/15/19 15:00 Stool Clostridium difficile Toxin Assay - Final Complete Laboratory Tests Test 07/16/19 05:30 White Blood Count 12.4 K/UL (4.8-10.8) #H Red Blood Count 3.76 M/UL (4.70-6.10) L Hemoglobin 11.9 G/DL (14.2-18.0) L Hematocrit 34.7 % (42.0-52.0) L Mean Corpuscular Volume 92 FL (80-99) Mean Corpuscular Hemoglobin 31.5 PG (27.0-31.0) H Mean Corpuscular Hemoglobin Concent 34.2 G/DL (32.0-36.0) Red Cell Distribution Width 12.0 % (11.6-14.8) Platelet Count 210 K/UL (150-450) Mean Platelet Volume 6.3 FL (6.5-10.1) L Neutrophils (%) (Auto) % (45.0-75.0) Lymphocytes (%) (Auto) % (20.0-45.0) Monocytes (%) (Auto) % (1.0-10.0) Eosinophils (%) (Auto) % (0.0-3.0) Basophils (%) (Auto) % (0.0-2.0) Differential Total Cells Counted 100 Neutrophils % (Manual) 87 % (45-75) H Lymphocytes % (Manual) 5 % (20-45) L Monocytes % (Manual) 8 % (1-10) Eosinophils % (Manual) 0 % (0-3) Basophils % (Manual) 0 % (0-2) Band Neutrophils 0 % (0-8) Platelet Estimate Adequate Platelet Morphology Normal Red Blood Cell Morphology Normal Sodium Level 144 MMOL/L (136-145) Potassium Level 3.8 MMOL/L (3.5-5.1) # Chloride Level 111 MMOL/L (98-107) H Carbon Dioxide Level 24 MMOL/L (21-32) Anion Gap 9 mmol/L (5-15) Blood Urea Nitrogen 6 mg/dL (7-18) L Creatinine 1.0 MG/DL (0.55-1.30) Estimat Glomerular Filtration Rate mL/min (>60) Glucose Level 76 MG/DL (74-106) Calcium Level 7.2 MG/DL (8.5-10.1) L Phosphorus Level 1.5 MG/DL (2.5-4.9) L Magnesium Level 1.8 MG/DL (1.8-2.4) Total Bilirubin 0.4 MG/DL (0.2-1.0) Aspartate Amino Transf (AST/SGOT) 15 U/L (15-37) Alanine Aminotransferase (ALT/SGPT) 17 U/L (12-78) Alkaline Phosphatase 63 U/L (46-116) Total Protein 4.5 G/DL (6.4-8.2) L Albumin 1.6 G/DL (3.4-5.0) L Globulin 2.9 g/dL Albumin/Globulin Ratio 0.6 (1.0-2.7) L Current Medications Medications (Trade) Dose Ordered Sig/Kevin Route PRN Reason Start Time Stop Time Status Last Admin Dose Admin Acetaminophen (Tylenol) 650 mg Q4H PRN ORAL Mild Pain/Temp > 100.5 07/16/19 16:00 08/08/19 19:59 Chlorhexidine Gluconate (Alejandrina-Hex 2%) 1 applic DAILY@2000 TOPIC 07/16/19 20:00 08/12/19 19:59 Dextrose 1,000 ml @ 50 mls/hr Q20H IV 07/16/19 13:00 08/10/19 12:59 Diphenhydramine HCl (Benadryl) 25 mg Q6H PRN ORAL Itching 07/16/19 14:00 08/08/19 19:59 Diphenoxylate HCl/ Atropine (Lomotil) 2.5 mg Q4H PRN ORAL Diarrhea 07/16/19 14:45 08/14/19 14:44 Heparin Sodium (Porcine) (Heparin 5000 units/ml) 5,000 units EVERY 12 HOURS SUBQ 07/16/19 21:00 08/08/19 20:59 Loperamide HCl (Imodium) 2 mg Q4H PRN ORAL Diarrhea 07/16/19 15:45 08/14/19 11:44 Mesalamine (Asacol) 1,600 mg THREE TIMES A DAY ORAL 07/16/19 13:00 08/10/19 12:59 Piperacillin Sod/ Tazobactam Sod 4.5 gm/Sodium Chloride 110 ml @ 27.5 mls/hr EVERY 8 HOURS IVPB 07/16/19 14:00 07/21/19 13:59 Potassium Phosphate 30 mm/ Sodium Chloride 285 ml @ 47.5 mls/hr ONCE ONCE IV 07/16/19 13:30 07/16/19 19:29 Spironolactone (Aldactone) 50 mg EVERY 8 HOURS ORAL 07/16/19 14:00 08/10/19 11:59 Zolpidem Tartrate (Ambien) 5 mg HSPRN PRN ORAL Insomnia 07/16/19 13:30 07/22/19 13:20 Micky Avilez MD Jul 16, 2019 12:38
[2019-07-16] MEDS ORDERED: Zolpidem 5mg tab ORAL PRN (13:30)
--- NOTE | 2019-07-16 14:40 | Hematology/Onc Progress Note ---
Assessment/Plan Assessment/Plan Assessment and Recs: # Failure to thrive (FTT) - decreased bmi and low protein, protein decreased, decreased po intake --> cea is 7.1, as per gi eval --> will also obtain q3d caloric counts --> mirtazapine as appetite stimulant --> GI consult has ordered, appreciate recs --> may need a gtube --> Psa is wnl # Anemia of chronic disease due to underlying chronic medical issues, multifactorial --> Anemia workup has been ordered, rule out gi bleed --> No evidence of hemolysis is noted, peripheral smear has been reviewed. --> Hgb goal >7. Transfuse prn. --> Epogen or iron at this time is not particularly indicated --> Medications have been reviewed # Abdominal pain r/o volvulus, has been evaluated by surg and gi in the past, egd/colo completed as well in past --> rectal tube inserted as per gi --> trial po intake --> as per gi and surg recs # Episode of generalized weakness --> cea is 7.1, as per gi team --> ivf have been started # Encephalopathy --> neuro eval as needed # Dehydration --> per renal # [place] Pacemaker - as per cards # Troponin leak # Dvt ppx with heparin sq Greatly appreciate consultation. Subjective Constitutional: Denies: no symptoms, chills, fever, malaise, weakness, other HEENT: Denies: no symptoms, eye pain, blurred vision, tearing, double vision, ear pain, ear discharge, nose pain, nose congestion, throat pain, throat swelling, mouth pain, mouth swelling, other Cardiovascular: Denies: no symptoms, chest pain, edema, irregular heart rate, lightheadedness, palpitations, syncope, other Respiratory: Denies: no symptoms, cough, shortness of breath, SOB with excertion, SOB at rest, sputum, wheezing, other Gastrointestinal/Abdominal: Denies: no symptoms, abdomen distended, abdominal pain, black stools, tarry stools, blood in stool, constipated, diarrhea, difficulty swallowing, nausea, poor appetite, poor fluid intake, rectal bleeding , vomiting, other Genitourinary: Denies: no symptoms, burning, discharge, frequency, flank pain, hematuria, incontinence, pain, urgency, other Neurologic/Psychiatric: Denies: no symptoms, anxiety, depressed, emotional problems, headache, numbness, paresthesia, pre-existing deficit, seizure, tingling, tremors, weakness, other Allergies: Coded Allergies: No Known Allergies (Unverified , 04/22/17) Subjective 07/11: no events, no bleeding, rectal tube flused, dw Rn 07/12: no f/c, no bleeding, dw rn, rect tube in place, bp is mildly high 07/13: no events to report, no bleeding noted, xray abd repeat, k given 07/14: no events, rectal tube in place but leaking, yes k given 07/15: no bleeding or chills, labs reviewed, no f/c, hgb stable 07/16: wound treatment, no major changes, on zosyn, labs noted Objective Objective Current Medications Medications (Trade) Dose Ordered Sig/Kevin Route PRN Reason Start Time Stop Time Status Last Admin Dose Admin Acetaminophen (Tylenol) 650 mg Q4H PRN ORAL Mild Pain/Temp > 100.5 07/16/19 16:00 08/08/19 19:59 Chlorhexidine Gluconate (Alejandrina-Hex 2%) 1 applic DAILY@2000 TOPIC 07/16/19 20:00 08/12/19 19:59 Dextrose 1,000 ml @ 50 mls/hr Q20H IV 07/16/19 13:00 08/10/19 12:59 07/16/19 13:50 Diphenhydramine HCl (Benadryl) 25 mg Q6H PRN ORAL Itching 07/16/19 14:00 08/08/19 19:59 Diphenoxylate HCl/ Atropine (Lomotil) 2.5 mg Q4H PRN ORAL Diarrhea 07/16/19 14:45 08/14/19 14:44 Heparin Sodium (Porcine) (Heparin 5000 units/ml) 5,000 units EVERY 12 HOURS SUBQ 07/16/19 21:00 08/08/19 20:59 Loperamide HCl (Imodium) 2 mg Q4H PRN ORAL Diarrhea 07/16/19 15:45 08/14/19 11:44 Mesalamine (Asacol) 1,600 mg THREE TIMES A DAY ORAL 07/16/19 13:00 08/10/19 12:59 Piperacillin Sod/ Tazobactam Sod 4.5 gm/Sodium Chloride 110 ml @ 27.5 mls/hr EVERY 8 HOURS IVPB 07/16/19 14:00 07/21/19 13:59 Potassium Phosphate 30 mm/ Sodium Chloride 285 ml @ 47.5 mls/hr ONCE ONCE IV 07/16/19 13:30 07/16/19 19:29 07/16/19 13:01 Spironolactone (Aldactone) 50 mg EVERY 8 HOURS ORAL 07/16/19 14:00 08/10/19 11:59 Zolpidem Tartrate (Ambien) 5 mg HSPRN PRN ORAL Insomnia 07/16/19 13:30 07/22/19 13:20 Last 24 Hour Vital Signs Date Time Temp Pulse Resp B/P (MAP) Pulse Ox O2 Delivery O2 Flow Rate FiO2 07/16/19 12:00 98.2 63 18 109/59 (76) 100 07/16/19 09:00 Room Air 07/16/19 08:14 60 07/16/19 08:00 97.7 62 20 135/69 (91) 96 07/16/19 04:00 98.9 66 18 123/66 (85) 96 07/16/19 04:00 60 07/16/19 00:00 63 07/16/19 00:00 99.1 61 17 145/68 (93) 98 07/15/19 21:00 Room Air 07/15/19 20:00 98.0 62 18 126/64 (84) 100 07/15/19 20:00 60 07/15/19 16:00 97.2 60 18 137/71 (93) 97 07/15/19 16:00 60 07/15/19 12:00 60 07/15/19 12:00 97.3 60 20 142/68 (92) 97 07/15/19 08:01 Room Air 07/15/19 08:00 97.9 60 20 133/60 (84) 97 07/15/19 08:00 60 07/15/19 04:00 97.8 61 19 132/88 (103) 100 07/15/19 04:00 60 07/15/19 00:00 60 07/15/19 00:00 97.3 61 18 154/69 (97) 100 10/23/19 21:00 Room Air 07/14/19 20:00 61 07/14/19 20:00 98.3 61 18 122/58 (79) 100 07/14/19 16:00 60 07/14/19 16:00 97.4 60 17 124/77 (93) 98 Intake and Output 07/15/19 07/16/19 19:00 07:00 Intake Total 360 ml Balance 360 ml Intake Oral 360 ml # Voids 3 2 # Bowel Movements 1 Labs Test 07/14/19 06:30 07/15/19 04:50 07/16/19 05:30 White Blood Count 8.5 K/UL (4.8-10.8) 7.4 K/UL (4.8-10.8) 12.4 K/UL (4.8-10.8) Red Blood Count 3.62 M/UL (4.70-6.10) 3.79 M/UL (4.70-6.10) 3.76 M/UL (4.70-6.10) Hemoglobin 11.3 G/DL (14.2-18.0) 11.7 G/DL (14.2-18.0) 11.9 G/DL (14.2-18.0) Hematocrit 32.8 % (42.0-52.0) 34.8 % (42.0-52.0) 34.7 % (42.0-52.0) Mean Corpuscular Volume 91 FL (80-99) 92 FL (80-99) 92 FL (80-99) Mean Corpuscular Hemoglobin 31.3 PG (27.0-31.0) 30.8 PG (27.0-31.0) 31.5 PG (27.0-31.0) Mean Corpuscular Hemoglobin Concent 34.5 G/DL (32.0-36.0) 33.6 G/DL (32.0-36.0) 34.2 G/DL (32.0-36.0) Red Cell Distribution Width 12.0 % (11.6-14.8) 11.9 % (11.6-14.8) 12.0 % (11.6-14.8) Platelet Count 199 K/UL (150-450) 207 K/UL (150-450) 210 K/UL (150-450) Mean Platelet Volume 6.0 FL (6.5-10.1) 5.8 FL (6.5-10.1) 6.3 FL (6.5-10.1) Neutrophils (%) (Auto) 82.3 % (45.0-75.0) 79.1 % (45.0-75.0) % (45.0-75.0) Lymphocytes (%) (Auto) 11.7 % (20.0-45.0) 15.3 % (20.0-45.0) % (20.0-45.0) Monocytes (%) (Auto) 5.5 % (1.0-10.0) 4.8 % (1.0-10.0) % (1.0-10.0) Eosinophils (%) (Auto) 0.3 % (0.0-3.0) 0.4 % (0.0-3.0) % (0.0-3.0) Basophils (%) (Auto) 0.2 % (0.0-2.0) 0.3 % (0.0-2.0) % (0.0-2.0) Sodium Level 146 MMOL/L (136-145) 145 MMOL/L (136-145) 144 MMOL/L (136-145) Potassium Level 2.4 MMOL/L (3.5-5.1) 2.5 MMOL/L (3.5-5.1) 3.8 MMOL/L (3.5-5.1) Chloride Level 114 MMOL/L (98-107) 112 MMOL/L (98-107) 111 MMOL/L (98-107) Carbon Dioxide Level 25 MMOL/L (21-32) 25 MMOL/L (21-32) 24 MMOL/L (21-32) Anion Gap 7 mmol/L (5-15) 7 mmol/L (5-15) 9 mmol/L (5-15) Blood Urea Nitrogen 7 mg/dL (7-18) 5 mg/dL (7-18) 6 mg/dL (7-18) Creatinine 0.9 MG/DL (0.55-1.30) 0.9 MG/DL (0.55-1.30) 1.0 MG/DL (0.55-1.30) Estimat Glomerular Filtration Rate mL/min (>60) mL/min (>60) mL/min (>60) Glucose Level 276 MG/DL (74-106) 106 MG/DL (74-106) 76 MG/DL (74-106) Calcium Level 6.9 MG/DL (8.5-10.1) 7.3 MG/DL (8.5-10.1) 7.2 MG/DL (8.5-10.1) Phosphorus Level 2.4 MG/DL (2.5-4.9) 2.2 MG/DL (2.5-4.9) 1.5 MG/DL (2.5-4.9) Magnesium Level 1.9 MG/DL (1.8-2.4) 1.8 MG/DL (1.8-2.4) 1.8 MG/DL (1.8-2.4) Total Bilirubin 0.4 MG/DL (0.2-1.0) 0.4 MG/DL (0.2-1.0) 0.4 MG/DL (0.2-1.0) Aspartate Amino Transf (AST/SGOT) 15 U/L (15-37) 17 U/L (15-37) 15 U/L (15-37) Alanine Aminotransferase (ALT/SGPT) 14 U/L (12-78) 14 U/L (12-78) 17 U/L (12-78) Alkaline Phosphatase 54 U/L (46-116) 56 U/L (46-116) 63 U/L (46-116) C-Reactive Protein, Quantitative 1.4 mg/dL (0.00-0.90) Total Protein 4.6 G/DL (6.4-8.2) 4.7 G/DL (6.4-8.2) 4.5 G/DL (6.4-8.2) Albumin 1.7 G/DL (3.4-5.0) 1.5 G/DL (3.4-5.0) 1.6 G/DL (3.4-5.0) Globulin 2.9 g/dL 3.2 g/dL 2.9 g/dL Albumin/Globulin Ratio 0.6 (1.0-2.7) 0.5 (1.0-2.7) 0.6 (1.0-2.7) Uric Acid 3.3 MG/DL (2.6-7.2) Differential Total Cells Counted 100 Neutrophils % (Manual) 87 % (45-75) Lymphocytes % (Manual) 5 % (20-45) Monocytes % (Manual) 8 % (1-10) Eosinophils % (Manual) 0 % (0-3) Basophils % (Manual) 0 % (0-2) Band Neutrophils 0 % (0-8) Platelet Estimate Adequate Platelet Morphology Normal Red Blood Cell Morphology Normal Micro Microbiology Date/Time Source Procedure Growth Status 07/15/19 15:00 Stool Stool Culture - Preliminary NORMAL FECAL BARBARA. Resulted 07/15/19 15:00 Stool Clostridium difficile Toxin Assay - Final Complete Height (Feet): 5 Height (Inches): 10.00 Weight (Pounds): 151 Objective PE General: alert, non-toxic, thin, Chronically Ill HEENT: poor dentition Resp: lungs clear, normal breath sounds CV: regular rate, rhythm GI: normal inspection, non tender, no guarding, no rebound, distended+ : no CVA tenderness ++ rectal tube Sterling Singletary MD Jul 16, 2019 14:40
[2019-07-16] MEDS ORDERED: Lomotil 2.5mg tab ORAL PRN (14:45)
--- NOTE | 2019-07-16 15:13 | NUR ---
NURSE NOTES:WOUND CARE NOTES: Pt presented on admission with partial thickness pressure injury sacrum. Base of wound is moist-viable with surrounding darker skin tone without erythema or induration.Pt is emaciated. Skin very dry. R leg edematous. Both heels are Boggy but blanchable. Cavilon Skin Barrier applied to bony prominences of R and L hips and both heels to protect skin. Pt positrioned on aids with pillows and both heels off-loaded with pillow. Tx.Plan: Apply Moisture Barrier Paste to Sacrum . Cover with Optifoam drsg. Change every 3 days and prn. Apply Cavilon Skin Barrier to Bilat hips. Cover each hip with Optifoam drsg. Change every 7 days and prn. Apply Cavilon Skin Barrier to both heels.Cover each heel with Optifoam drsg. change every 7 days and prn. Reposition at least every 2hours or as tolerated. Off-load heels with pillow. Addendum: 07/16/19 at 1522 by Oscar Esqueda LVN ABOVE WOUND CARE NOTES LATE ENTRY FOR 07/12/2019.
[2019-07-16] MEDS ORDERED: Loperamide 2mg cap ORAL PRN (15:45)
[2019-07-16 16:00] VITALS: BP 132/68
--- NOTE | 2019-07-16 16:06 | Surgery Progress Note ---
Surgery Progress Note Subjective Symptoms: improved, tolerating diet, passing flatus, BM Objective Last 24 Hour Vital Signs Date Time Temp Pulse Resp B/P (MAP) Pulse Ox O2 Delivery O2 Flow Rate FiO2 07/16/19 12:00 98.2 63 18 109/59 (76) 100 07/16/19 09:00 Room Air 07/16/19 08:14 60 07/16/19 08:00 97.7 62 20 135/69 (91) 96 07/16/19 04:00 98.9 66 18 123/66 (85) 96 07/16/19 04:00 60 07/16/19 00:00 63 07/16/19 00:00 99.1 61 17 145/68 (93) 98 07/15/19 21:00 Room Air 07/15/19 20:00 98.0 62 18 126/64 (84) 100 07/15/19 20:00 60 I&O Intake and Output 07/15/19 07/16/19 19:00 07:00 Intake Total 360 ml Balance 360 ml Intake Oral 360 ml # Voids 3 2 # Bowel Movements 1 Cardiovascular: RSR Respiratory: clear Abdomen: soft, non-tender, present bowel sounds Extremities: no cyanosis Laboratory Tests Test 07/16/19 05:30 White Blood Count 12.4 K/UL (4.8-10.8) #H Red Blood Count 3.76 M/UL (4.70-6.10) L Hemoglobin 11.9 G/DL (14.2-18.0) L Hematocrit 34.7 % (42.0-52.0) L Mean Corpuscular Volume 92 FL (80-99) Mean Corpuscular Hemoglobin 31.5 PG (27.0-31.0) H Mean Corpuscular Hemoglobin Concent 34.2 G/DL (32.0-36.0) Red Cell Distribution Width 12.0 % (11.6-14.8) Platelet Count 210 K/UL (150-450) Mean Platelet Volume 6.3 FL (6.5-10.1) L Neutrophils (%) (Auto) % (45.0-75.0) Lymphocytes (%) (Auto) % (20.0-45.0) Monocytes (%) (Auto) % (1.0-10.0) Eosinophils (%) (Auto) % (0.0-3.0) Basophils (%) (Auto) % (0.0-2.0) Differential Total Cells Counted 100 Neutrophils % (Manual) 87 % (45-75) H Lymphocytes % (Manual) 5 % (20-45) L Monocytes % (Manual) 8 % (1-10) Eosinophils % (Manual) 0 % (0-3) Basophils % (Manual) 0 % (0-2) Band Neutrophils 0 % (0-8) Platelet Estimate Adequate Platelet Morphology Normal Red Blood Cell Morphology Normal Sodium Level 144 MMOL/L (136-145) Potassium Level 3.8 MMOL/L (3.5-5.1) # Chloride Level 111 MMOL/L (98-107) H Carbon Dioxide Level 24 MMOL/L (21-32) Anion Gap 9 mmol/L (5-15) Blood Urea Nitrogen 6 mg/dL (7-18) L Creatinine 1.0 MG/DL (0.55-1.30) Estimat Glomerular Filtration Rate mL/min (>60) Glucose Level 76 MG/DL (74-106) Calcium Level 7.2 MG/DL (8.5-10.1) L Phosphorus Level 1.5 MG/DL (2.5-4.9) L Magnesium Level 1.8 MG/DL (1.8-2.4) Total Bilirubin 0.4 MG/DL (0.2-1.0) Aspartate Amino Transf (AST/SGOT) 15 U/L (15-37) Alanine Aminotransferase (ALT/SGPT) 17 U/L (12-78) Alkaline Phosphatase 63 U/L (46-116) Total Protein 4.5 G/DL (6.4-8.2) L Albumin 1.6 G/DL (3.4-5.0) L Globulin 2.9 g/dL Albumin/Globulin Ratio 0.6 (1.0-2.7) L Plan Problems: (1) Abdominal distention Assessment & Plan: similar to prior but now patient with more weight loss so distention more prominent soft, no perforation, non tender, but still massively distended discussed with patient at bedside. still having small multiple BM and flatus. no n/v he has functional colonic and bowel problem and not true obstruction discussed consideration for decompression and surgery he states currently he is not considering surgery as an option decompressed by GI with rectal tube stable will monitor advance diet as tolerated picc line for replacement electrolytes AM labs will discuss with GI when to remove rectal tube will follow with recs thank you There is massive distention of the sigmoid colon with more mild upstream distention of the remainder of the colon. The sigmoid colon measures up to 14 cm in AP dimension. Sigmoid is dilated to a clear transition point just to the right of midline in the pelvis where there is abnormal twisting/swirling of the mesentery around the narrow portion of sigmoid colon. As on the prior exam there is no proximal transition point or narrowing. There is no evidence of free intraperitoneal air or fluid. Some contrast is noted within the rectum. Uncertain if this was administered prior to the current study or if this represents residual from a prior contrast administration. There is a small hiatal hernia. There is thickening of the distal esophagus as well which may suggest esophagitis. There is no evidence of small bowel obstruction. There is mass effect on the intra-abdominal organs related to the markedly distended sigmoid colon. Liver, spleen grossly unremarkable. There is an unchanged indeterminate nodule in the lateral limb of the right adrenal gland which measures up to 1.1 cm. Stable in size compared to the prior exam. There is a large cyst in the upper pole left kidney which measures 6.2 cm. Smaller simple appearing cysts also noted in the left. There is no hydronephrosis or urinary tract stone. Pancreas and bladder grossly unremarkable. The prostate is enlarged and heterogeneous. Abdominal aorta is infrarenal abdominal aorta measures up to 3 cm AP with moderate atherosclerotic calcification. There are degenerative changes in the spine and bilateral hips. There is patchy sclerosis in the visualized osseous structures. No acute fracture. IMPRESSION: * Marked distention of the sigmoid colon up to a abrupt transition in the distal sigmoid where there is swirling in the mesentery concerning for volvulus. Similar to the prior exam no proximal transition point or narrowing is noted, instead there is upstream dilatation of the remainder of the colon. Recommend surgical evaluation and/or colonoscopy. * No evidence of free intraperitoneal air or fluid. * No small bowel obstruction. * Small hiatal hernia with thickening of the distal esophagus suggesting esophagitis. Consider correlation with endoscopy. 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 * Indeterminate right adrenal nodule measuring 1.1 cm, stable compared to the prior exam. * Left renal cysts, largest measures approximately 6.3 cm diameter. * Enlarged and heterogeneous prostate which may be on the basis of BPH. Correlation with prostate exam and PSA however is recommended. * Unusual osseous mineralization with patchy sclerosis, also seen previously and unchanged. This may be on the basis of chronic osteoporotic changes. Consider further evaluation with bone scan. (2) Ileus (3) Gastroparesis (4) Failure to thrive Assessment & Plan: Pt presented on admission with partial thickness pressure injury sacrum. Base of wound is moist-viable with surrounding darker skin tone without erythema or induration.Pt is emaciated. Skin very dry. R leg edematous. Both heels are Boggy but blanchable. Cavilon Skin Barrier applied to bony prominences of R and L hips and both heels to protect skin. Pt positrioned on aids with pillows and both heels off-loaded with pillow. Tx.Plan: Apply Moisture Barrier Paste to Sacrum . Cover with Optifoam drsg. Change every 3 days and prn. Apply Cavilon Skin Barrier to Bilat hips. Cover each hip with Optifoam drsg. Change every 7 days and prn. Apply Cavilon Skin Barrier to both heels.Cover each heel with Optifoam drsg. change every 7 days and prn. Reposition at least every 2hours or as tolerated. Off-load heels with pillow. Chava Smith Jul 16, 2019 16:06
--- NOTE | 2019-07-16 19:17 | NUR ---
HAND-OFF: Report given to Zane.
--- NOTE | 2019-07-16 19:49 | NUR ---
NURSE NOTES: Pt is in bed, awake and verbal. No acute distress noted. Vitas stable. Pt is asking for food, some snacks given to patient. HOB elevated.Pt is on P200 matrass. Pt's wound dressing dry and intact. Pt will be repositioned frequently. Fall precaution in place, bed alarm on. Bed locked low in position,side rails up and call light within reach.
[2019-07-16 20:00] VITALS: BP 135/70
[2019-07-16] MEDS: Dyna-Hex 2% Top Sol 2oz TOPIC SCH (20:51)
--- NOTE | 2019-07-16 21:57 | General Progress Note ---
Assessment/Plan Problem List: (1) Ileus ICD Codes: K56.7 - Ileus, unspecified SNOMED: 173992999 (2) HTN (hypertension) ICD Codes: I10 - Essential (primary) hypertension SNOMED: 37542427 (3) Volvulus ICD Codes: K56.2 - Volvulus SNOMED: 5991195 (4) Abdominal distention ICD Codes: R14.0 - Abdominal distension (gaseous) SNOMED: 12697267 (5) Elevated troponin ICD Codes: R79.89 - Other specified abnormal findings of blood chemistry SNOMED: 211331691, 170676797, 995115639 (6) Hypokalemia ICD Codes: E87.6 - Hypokalemia SNOMED: 43594846 Status: stable Assessment/Plan: still low k not safe for dc replacement per dr mcarthur 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 Subjective ROS Limited/Unobtainable: Yes Allergies: Coded Allergies: No Known Allergies (Unverified , 04/22/17) Objective Last 24 Hour Vital Signs Date Time Temp Pulse Resp B/P (MAP) Pulse Ox O2 Delivery O2 Flow Rate FiO2 07/16/19 16:00 98.0 61 18 132/68 (89) 97 07/16/19 12:00 98.2 63 18 109/59 (76) 100 07/16/19 09:00 Room Air 07/16/19 08:14 60 07/16/19 08:00 97.7 62 20 135/69 (91) 96 07/16/19 04:00 98.9 66 18 123/66 (85) 96 07/16/19 04:00 60 07/16/19 00:00 63 07/16/19 00:00 99.1 61 17 145/68 (93) 98 Intake and Output 07/15/19 07/16/19 18:59 06:59 Intake Total 360 ml Balance 360 ml Intake Oral 360 ml # Voids 3 2 # Bowel Movements 1 Laboratory Tests 07/16/19 05:30: White Blood Count 12.4#H, Red Blood Count 3.76L, Hemoglobin 11.9L, Hematocrit 34.7L, Mean Corpuscular Volume 92, Mean Corpuscular Hemoglobin 31.5H, Mean Corpuscular Hemoglobin Concent 34.2, Red Cell Distribution Width 12.0, Platelet Count 210, Mean Platelet Volume 6.3L, Neutrophils (%) (Auto) , Lymphocytes (%) ( Auto) , Monocytes (%) (Auto) , Eosinophils (%) (Auto) , Basophils (%) (Auto) , Differential Total Cells Counted 100, Neutrophils % (Manual) 87H, Lymphocytes % (Manual) 5L, Monocytes % (Manual) 8, Eosinophils % (Manual) 0, Basophils % ( Manual) 0, Band Neutrophils 0, Platelet Estimate Adequate, Platelet Morphology Normal, Red Blood Cell Morphology Normal, Sodium Level 144, Potassium Level 3.8# , Chloride Level 111H, Carbon Dioxide Level 24, Anion Gap 9, Blood Urea Nitrogen 6L, Creatinine 1.0, Estimat Glomerular Filtration Rate , Glucose Level 76, Calcium Level 7.2L, Phosphorus Level 1.5L, Magnesium Level 1.8, Total Bilirubin 0.4, Aspartate Amino Transf (AST/SGOT) 15, Alanine Aminotransferase ( ALT/SGPT) 17, Alkaline Phosphatase 63, Total Protein 4.5L, Albumin 1.6L, Globulin 2.9, Albumin/Globulin Ratio 0.6L Height (Feet): 5 Height (Inches): 10.00 Weight (Pounds): 151 Cardiovascular: normal rate Respiratory/Chest: lungs clear Abdomen: soft Jose Francisco Chand MD Jul 16, 2019 21:57
--- NOTE | 2019-07-16 22:12 | NUR ---
NURSE NOTES: Pt refused Aldactone 50mg po despite encouragement and education.
[2019-07-17] VITALS (7 sets, daily range): BP systolic 128–160; BP diastolic 67–87
[2019-07-17] MEDS: Piperacillin/Tazobactam 4.5 GM in NS 110 ML IVPB SCH ×3 (05:38→21:06)
[2019-07-17] MEDS: Spironolactone 50mg tab ORAL SCH ×3 (05:57→21:05)
--- NOTE | 2019-07-17 06:24 | NUR ---
NURSE NOTES: Pt is in bed, awake and verbal. Pt is eating a lot. No acute distress noted. Dressing dry and intact. Pt had BM, sacral dressing changed. Pt was cleaned , bed linen changed. Pt repositioned frequently.
--- NOTE | 2019-07-17 06:50 | NUR ---
NURSE NOTES: Blood drawn form PICC line and sent to Lab for CBC and BMP
--- NOTE | 2019-07-17 07:15 | NUR ---
HAND-OFF: Report given to Augustina Rodas RN.
[2019-07-17 07:48] LABS: HEMATOCRIT 36.3 % (42.0-52.0); HEMOGLOBIN 12.4 G/DL (14.2-18.0); MEAN CORPUSCULAR VOLUME 91 FL (80-99); PLATELET COUNT 237 K/UL (150-450); RED BLOOD COUNT 3.97 M/UL (4.70-6.10); RED CELL DISTRIBUTION WIDTH 11.7 % (11.6-14.8); WHITE BLOOD COUNT 11.2 K/UL (4.8-10.8)
--- NOTE | 2019-07-17 07:51 | NUR ---
NURSE NOTES: received patient in bed,sleeping but arousable No acute distress noted.HOB elevated. IVF on going Fall precaution in place, bed alarm on. Bed locked low in position,side rails up and call light within reach. juan daniel pretty
[2019-07-17 07:59] LABS: ANION GAP 9 mmol/L (5-15); BLOOD UREA NITROGEN 9 mg/dL (7-18); CALCIUM 7.6 MG/DL (8.5-10.1); CARBON DIOXIDE 25 MMOL/L (21-32); CHLORIDE 111 MMOL/L (98-107); CREATININE 0.8 MG/DL (0.55-1.30); POTASSIUM 3.2 MMOL/L (3.5-5.1); SODIUM 145 MMOL/L (136-145)
[2019-07-17] MEDS: Mesalamine 400mg cap ORAL SCH ×3 (08:44→17:06)
[2019-07-17] MEDS: Heparin 5000 units/ml inj SUBQ SCH ×2 (08:48→21:05)
--- NOTE | 2019-07-17 08:52 | General Progress Note ---
Assessment/Plan Problem List: (1) Hypokalemia ICD Codes: E87.6 - Hypokalemia SNOMED: 75834976 (2) Dehydration ICD Codes: E86.0 - Dehydration SNOMED: 16122921 (3) Failure to thrive SNOMED: 12532498 Qualifiers: Qualified Codes: R62.7 - Adult failure to thrive (4) Volvulus ICD Codes: K56.2 - Volvulus SNOMED: 3204244 (5) Abdominal distention ICD Codes: R14.0 - Abdominal distension (gaseous) SNOMED: 67676350 (6) HTN (hypertension) ICD Codes: I10 - Essential (primary) hypertension SNOMED: 43194934 (7) Diabetes mellitus ICD Codes: E11.9 - Type 2 diabetes mellitus without complications SNOMED: 46070475 Status: stable Assessment/Plan: Assessment/Plan rectal tube for colonic decompression correct K>>40 for today serial imaging prn prn transfusions follow labs on imodium, lomotil, mesalamine Subjective ROS Limited/Unobtainable: Yes Allergies: Coded Allergies: No Known Allergies (Unverified , 04/22/17) Subjective refusing meds Objective Last 24 Hour Vital Signs Date Time Temp Pulse Resp B/P (MAP) Pulse Ox O2 Delivery O2 Flow Rate FiO2 07/17/19 08:43 Room Air 07/17/19 04:00 97.8 60 19 155/87 (109) 96 07/17/19 00:00 96.8 64 20 132/72 (92) 96 07/16/19 21:00 Room Air 07/16/19 20:00 98.1 60 20 135/70 (91) 96 07/16/19 16:00 98.0 61 18 132/68 (89) 97 07/16/19 12:00 98.2 63 18 109/59 (76) 100 07/16/19 09:00 Room Air Intake and Output 07/16/19 07/17/19 19:00 07:00 Intake Total 870.0 ml 2242.5 ml Balance 870.0 ml 2242.5 ml Intake Oral 760 ml IV Total 270.0 ml 882.5 ml Other 600 ml 600 ml # Voids 4 # Bowel Movements 1 Laboratory Tests 07/17/19 06:15: White Blood Count 11.2H, Red Blood Count 3.97L, Hemoglobin 12.4L, Hematocrit 36.3L, Mean Corpuscular Volume 91, Mean Corpuscular Hemoglobin 31.2H, Mean Corpuscular Hemoglobin Concent 34.1, Red Cell Distribution Width 11.7, Platelet Count 237, Mean Platelet Volume 6.3L, Neutrophils (%) (Auto) , Lymphocytes (%) ( Auto) , Monocytes (%) (Auto) , Eosinophils (%) (Auto) , Basophils (%) (Auto) , Neutrophils % (Manual) [Pending], Lymphocytes % (Manual) [Pending], Platelet Estimate [Pending], Platelet Morphology [Pending], Sodium Level 145, Potassium Level 3.2L, Chloride Level 111H, Carbon Dioxide Level 25, Anion Gap 9, Blood Urea Nitrogen 9, Creatinine 0.8, Estimat Glomerular Filtration Rate , Glucose Level 136H, Calcium Level 7.6L Height (Feet): 5 Height (Inches): 10.00 Weight (Pounds): 151 General Appearance: alert EENT: normal ENT inspection Neck: supple Cardiovascular: normal rate Abdomen: normal bowel sounds, non tender, soft Extremities: non-tender Tavares Ortiz MD Jul 17, 2019 08:52
--- NOTE | 2019-07-17 10:48 | Nephrology Progress Note ---
Assessment/Plan Problem List: (1) Hypokalemia Assessment: due to diarrhea (2) Dehydration (3) Failure to thrive (4) Elevated troponin (5) Abdominal distention Assessment HypoKalemia Severe UTI HTN Ileus FFT troponin Leak Pacemaker Plan patient refuses PO meds most of the time trial immodium K supplement IV and PO resume Aldactone resume Asacol monitor lytes per orders check TSH Subjective ROS Limited/Unobtainable: No Constitutional: Reports: malaise, weakness Objective Objective Last 24 Hour Vital Signs Date Time Temp Pulse Resp B/P (MAP) Pulse Ox O2 Delivery O2 Flow Rate FiO2 07/17/19 08:55 147/67 (93) 07/17/19 08:43 Room Air 07/17/19 08:10 98.0 63 18 160/80 (106) 96 07/17/19 04:00 97.8 60 19 155/87 (109) 96 07/17/19 00:00 96.8 64 20 132/72 (92) 96 07/16/19 21:00 Room Air 07/16/19 20:00 98.1 60 20 135/70 (91) 96 07/16/19 16:00 98.0 61 18 132/68 (89) 97 07/16/19 12:00 98.2 63 18 109/59 (76) 100 Intake and Output 07/16/19 07/17/19 19:00 07:00 Intake Total 870.0 ml 2242.5 ml Balance 870.0 ml 2242.5 ml Intake Oral 760 ml IV Total 270.0 ml 882.5 ml Other 600 ml 600 ml # Voids 4 # Bowel Movements 1 Laboratory Tests 07/17/19 06:15: White Blood Count 11.2H, Red Blood Count 3.97L, Hemoglobin 12.4L, Hematocrit 36.3L, Mean Corpuscular Volume 91, Mean Corpuscular Hemoglobin 31.2H, Mean Corpuscular Hemoglobin Concent 34.1, Red Cell Distribution Width 11.7, Platelet Count 237, Mean Platelet Volume 6.3L, Neutrophils (%) (Auto) , Lymphocytes (%) ( Auto) , Monocytes (%) (Auto) , Eosinophils (%) (Auto) , Basophils (%) (Auto) , Neutrophils % (Manual) [Pending], Lymphocytes % (Manual) [Pending], Platelet Estimate [Pending], Platelet Morphology [Pending], Sodium Level 145, Potassium Level 3.2L, Chloride Level 111H, Carbon Dioxide Level 25, Anion Gap 9, Blood Urea Nitrogen 9, Creatinine 0.8, Estimat Glomerular Filtration Rate , Glucose Level 136H, Calcium Level 7.6L Height (Feet): 5 Height (Inches): 10.00 Weight (Pounds): 151 General Appearance: no apparent distress Cardiovascular: normal rate Respiratory/Chest: decreased breath sounds Abdomen: distended Herve Marshall MD Jul 17, 2019 10:47
[2019-07-17] MEDS ORDERED: Potassium Phosphate 30 MM in NS 275 ML IV ONE (11:00)
--- NOTE | 2019-07-17 11:58 | Hematology/Onc Progress Note ---
Assessment/Plan Assessment/Plan Assessment and Recs: # Failure to thrive (FTT) - decreased bmi and low protein, protein decreased, decreased po intake --> cea is 7.1, as per gi eval --> will also obtain q3d caloric counts --> mirtazapine as appetite stimulant --> GI consult has ordered, appreciate recs --> may need a gtube --> Psa is wnl # Anemia of chronic disease due to underlying chronic medical issues, multifactorial --> Anemia workup has been eviewed and cw acd --> No evidence of hemolysis is noted, peripheral smear has been reviewed. --> Hgb goal >7. Transfuse prn. --> Epogen or iron at this time is not particularly indicated --> Medications have been reviewed # Elevated tumor markers --> cea in the past 7.1 --> per gi, hold off on endo # Abdominal pain r/o volvulus, has been evaluated by surg and gi in the past, egd/colo completed as well in past --> rectal tube inserted as per gi --> trial po intake --> as per gi and surg recs # Episode of generalized weakness --> ivf have been started --> pt/ot # Encephalopathy --> neuro eval as needed # Dehydration --> per renal # [facility] Pacemaker - as per cards # Troponin leak # Dvt ppx with heparin sq Greatly appreciate consultation. Subjective HEENT: Denies: no symptoms, eye pain, blurred vision, tearing, double vision, ear pain, ear discharge, nose pain, nose congestion, throat pain, throat swelling, mouth pain, mouth swelling, other Respiratory: Denies: no symptoms, cough, shortness of breath, SOB with excertion, SOB at rest, sputum, wheezing, other Gastrointestinal/Abdominal: Denies: no symptoms, abdomen distended, abdominal pain, black stools, tarry stools, blood in stool, constipated, diarrhea, difficulty swallowing, nausea, poor appetite, poor fluid intake, rectal bleeding , vomiting, other Genitourinary: Denies: no symptoms, burning, discharge, frequency, flank pain, hematuria, incontinence, pain, urgency, other Neurologic/Psychiatric: Denies: no symptoms, anxiety, depressed, emotional problems, headache, numbness, paresthesia, pre-existing deficit, seizure, tingling, tremors, weakness, other Endocrine: Denies: no symptoms, excessive sweating, flushing, intolerance to cold, intolerance to heat, increased hunger, increased thirst, increased urine, unexplained weight gain, unexplained weight loss, other Allergies: Coded Allergies: No Known Allergies (Unverified , 04/22/17) Subjective 07/11: no events, no bleeding, rectal tube flused, dw Rn 07/12: no f/c, no bleeding, dw rn, rect tube in place, bp is mildly high 07/13: no events to report, no bleeding noted, xray abd repeat, k given 07/14: no events, rectal tube in place but leaking, yes k given 07/15: no bleeding or chills, labs reviewed, no f/c, hgb stable 07/16: wound treatment, no major changes, on zosyn, labs noted 07/17: no events, sleeping, less leaking, labs noted Objective Objective Current Medications Medications (Trade) Dose Ordered Sig/Kevin Route PRN Reason Start Time Stop Time Status Last Admin Dose Admin Acetaminophen (Tylenol) 650 mg Q4H PRN ORAL Mild Pain/Temp > 100.5 07/16/19 16:00 08/08/19 19:59 Chlorhexidine Gluconate (Alejandrina-Hex 2%) 1 applic DAILY@2000 TOPIC 07/16/19 20:00 08/12/19 19:59 07/16/19 20:51 Dextrose 1,000 ml @ 50 mls/hr Q20H IV 07/16/19 13:00 08/10/19 12:59 07/16/19 13:50 Diphenhydramine HCl (Benadryl) 25 mg Q6H PRN ORAL Itching 07/16/19 14:00 08/08/19 19:59 Heparin Sodium (Porcine) (Heparin 5000 units/ml) 5,000 units EVERY 12 HOURS SUBQ 07/16/19 21:00 08/08/19 20:59 07/17/19 08:48 Loperamide HCl (Imodium) 2 mg Q4H PRN ORAL Diarrhea 07/16/19 15:45 08/14/19 11:44 07/17/19 09:21 Mesalamine (Asacol) 1,600 mg THREE TIMES A DAY ORAL 07/16/19 13:00 08/10/19 12:59 Piperacillin Sod/ Tazobactam Sod 4.5 gm/Sodium Chloride 110 ml @ 27.5 mls/hr EVERY 8 HOURS IVPB 07/16/19 14:00 07/21/19 13:59 07/17/19 05:38 Potassium Phosphate 30 mm/ Sodium Chloride 285 ml @ 47.5 mls/hr ONCE ONCE IV 07/17/19 11:00 07/17/19 16:59 07/17/19 10:55 Potassium Chloride (K-Dur) 40 meq DAILY ORAL 07/18/19 09:00 08/17/19 08:59 Potassium Chloride (K-Dur) 40 meq ONCE ORAL 07/17/19 10:00 07/17/19 12:00 07/17/19 09:21 Spironolactone (Aldactone) 50 mg EVERY 8 HOURS ORAL 07/16/19 14:00 08/10/19 11:59 Zolpidem Tartrate (Ambien) 5 mg HSPRN PRN ORAL Insomnia 07/16/19 13:30 07/22/19 13:20 Last 24 Hour Vital Signs Date Time Temp Pulse Resp B/P (MAP) Pulse Ox O2 Delivery O2 Flow Rate FiO2 07/17/19 08:55 147/67 (93) 07/17/19 08:43 Room Air 07/17/19 08:10 98.0 63 18 160/80 (106) 96 07/17/19 04:00 97.8 60 19 155/87 (109) 96 07/17/19 00:00 96.8 64 20 132/72 (92) 96 07/16/19 21:00 Room Air 07/16/19 20:00 98.1 60 20 135/70 (91) 96 07/16/19 16:00 98.0 61 18 132/68 (89) 97 07/16/19 12:00 98.2 63 18 109/59 (76) 100 07/16/19 09:00 Room Air 07/16/19 08:14 60 07/16/19 08:00 97.7 62 20 135/69 (91) 96 07/16/19 04:00 98.9 66 18 123/66 (85) 96 07/16/19 04:00 60 07/16/19 00:00 63 07/16/19 00:00 99.1 61 17 145/68 (93) 98 07/15/19 21:00 Room Air 07/15/19 20:00 98.0 62 18 126/64 (84) 100 07/15/19 20:00 60 07/15/19 16:00 97.2 60 18 137/71 (93) 97 07/15/19 16:00 60 07/15/19 12:00 60 07/15/19 12:00 97.3 60 20 142/68 (92) 97 Intake and Output 07/16/19 07/17/19 19:00 07:00 Intake Total 870.0 ml 2242.5 ml Balance 870.0 ml 2242.5 ml Intake Oral 760 ml IV Total 270.0 ml 882.5 ml Other 600 ml 600 ml # Voids 4 # Bowel Movements 1 Labs Test 07/15/19 04:50 07/16/19 05:30 07/17/19 06:15 White Blood Count 7.4 K/UL (4.8-10.8) 12.4 K/UL (4.8-10.8) 11.2 K/UL (4.8-10.8) Red Blood Count 3.79 M/UL (4.70-6.10) 3.76 M/UL (4.70-6.10) 3.97 M/UL (4.70-6.10) Hemoglobin 11.7 G/DL (14.2-18.0) 11.9 G/DL (14.2-18.0) 12.4 G/DL (14.2-18.0) Hematocrit 34.8 % (42.0-52.0) 34.7 % (42.0-52.0) 36.3 % (42.0-52.0) Mean Corpuscular Volume 92 FL (80-99) 92 FL (80-99) 91 FL (80-99) Mean Corpuscular Hemoglobin 30.8 PG (27.0-31.0) 31.5 PG (27.0-31.0) 31.2 PG (27.0-31.0) Mean Corpuscular Hemoglobin Concent 33.6 G/DL (32.0-36.0) 34.2 G/DL (32.0-36.0) 34.1 G/DL (32.0-36.0) Red Cell Distribution Width 11.9 % (11.6-14.8) 12.0 % (11.6-14.8) 11.7 % (11.6-14.8) Platelet Count 207 K/UL (150-450) 210 K/UL (150-450) 237 K/UL (150-450) Mean Platelet Volume 5.8 FL (6.5-10.1) 6.3 FL (6.5-10.1) 6.3 FL (6.5-10.1) Neutrophils (%) (Auto) 79.1 % (45.0-75.0) % (45.0-75.0) % (45.0-75.0) Lymphocytes (%) (Auto) 15.3 % (20.0-45.0) % (20.0-45.0) % (20.0-45.0) Monocytes (%) (Auto) 4.8 % (1.0-10.0) % (1.0-10.0) % (1.0-10.0) Eosinophils (%) (Auto) 0.4 % (0.0-3.0) % (0.0-3.0) % (0.0-3.0) Basophils (%) (Auto) 0.3 % (0.0-2.0) % (0.0-2.0) % (0.0-2.0) Sodium Level 145 MMOL/L (136-145) 144 MMOL/L (136-145) 145 MMOL/L (136-145) Potassium Level 2.5 MMOL/L (3.5-5.1) 3.8 MMOL/L (3.5-5.1) 3.2 MMOL/L (3.5-5.1) Chloride Level 112 MMOL/L (98-107) 111 MMOL/L (98-107) 111 MMOL/L (98-107) Carbon Dioxide Level 25 MMOL/L (21-32) 24 MMOL/L (21-32) 25 MMOL/L (21-32) Anion Gap 7 mmol/L (5-15) 9 mmol/L (5-15) 9 mmol/L (5-15) Blood Urea Nitrogen 5 mg/dL (7-18) 6 mg/dL (7-18) 9 mg/dL (7-18) Creatinine 0.9 MG/DL (0.55-1.30) 1.0 MG/DL (0.55-1.30) 0.8 MG/DL (0.55-1.30) Estimat Glomerular Filtration Rate mL/min (>60) mL/min (>60) mL/min (>60) Glucose Level 106 MG/DL (74-106) 76 MG/DL (74-106) 136 MG/DL (74-106) Uric Acid 3.3 MG/DL (2.6-7.2) Calcium Level 7.3 MG/DL (8.5-10.1) 7.2 MG/DL (8.5-10.1) 7.6 MG/DL (8.5-10.1) Phosphorus Level 2.2 MG/DL (2.5-4.9) 1.5 MG/DL (2.5-4.9) Magnesium Level 1.8 MG/DL (1.8-2.4) 1.8 MG/DL (1.8-2.4) Total Bilirubin 0.4 MG/DL (0.2-1.0) 0.4 MG/DL (0.2-1.0) Aspartate Amino Transf (AST/SGOT) 17 U/L (15-37) 15 U/L (15-37) Alanine Aminotransferase (ALT/SGPT) 14 U/L (12-78) 17 U/L (12-78) Alkaline Phosphatase 56 U/L (46-116) 63 U/L (46-116) Total Protein 4.7 G/DL (6.4-8.2) 4.5 G/DL (6.4-8.2) Albumin 1.5 G/DL (3.4-5.0) 1.6 G/DL (3.4-5.0) Globulin 3.2 g/dL 2.9 g/dL Albumin/Globulin Ratio 0.5 (1.0-2.7) 0.6 (1.0-2.7) Differential Total Cells Counted 100 100 Neutrophils % (Manual) 87 % (45-75) 86 % (45-75) Lymphocytes % (Manual) 5 % (20-45) 11 % (20-45) Monocytes % (Manual) 8 % (1-10) 3 % (1-10) Eosinophils % (Manual) 0 % (0-3) 0 % (0-3) Basophils % (Manual) 0 % (0-2) 0 % (0-2) Band Neutrophils 0 % (0-8) 0 % (0-8) Platelet Estimate Adequate Adequate Platelet Morphology Normal Normal Red Blood Cell Morphology Normal Normal Height (Feet): 5 Height (Inches): 10.00 Weight (Pounds): 151 Objective PE General: alert, non-toxic, thin, Chronically Ill HEENT: poor dentition Resp: lungs clear, normal breath sounds CV: regular rate, rhythm GI: normal inspection, non tender, no guarding, no rebound, distended+ : no CVA tenderness ++ rectal tube Sterling Singletary MD Jul 17, 2019 11:58
--- NOTE | 2019-07-17 14:01 | Surgery Progress Note ---
Surgery Progress Note Subjective Additional Comments Potassium improved. Rectal tube removed Abdomen slightly more distended today Tolerating diet No nausea vomiting fever chills Objective Last 24 Hour Vital Signs Date Time Temp Pulse Resp B/P (MAP) Pulse Ox O2 Delivery O2 Flow Rate FiO2 07/17/19 12:16 98.4 69 19 136/76 (96) 99 07/17/19 08:55 147/67 (93) 07/17/19 08:43 Room Air 07/17/19 08:10 98.0 63 18 160/80 (106) 96 07/17/19 04:00 97.8 60 19 155/87 (109) 96 07/17/19 00:00 96.8 64 20 132/72 (92) 96 07/16/19 21:00 Room Air 07/16/19 20:00 98.1 60 20 135/70 (91) 96 07/16/19 16:00 98.0 61 18 132/68 (89) 97 I&O Intake and Output 07/16/19 07/17/19 19:00 07:00 Intake Total 870.0 ml 2242.5 ml Balance 870.0 ml 2242.5 ml Intake Oral 760 ml IV Total 270.0 ml 882.5 ml Other 600 ml 600 ml # Voids 4 # Bowel Movements 1 Cardiovascular: RSR Respiratory: clear Abdomen: soft, distended, non-tender, decreased bowel sounds Extremities: no edema, no tenderness, no cyanosis Laboratory Tests Test 07/17/19 06:15 White Blood Count 11.2 K/UL (4.8-10.8) H Red Blood Count 3.97 M/UL (4.70-6.10) L Hemoglobin 12.4 G/DL (14.2-18.0) L Hematocrit 36.3 % (42.0-52.0) L Mean Corpuscular Volume 91 FL (80-99) Mean Corpuscular Hemoglobin 31.2 PG (27.0-31.0) H Mean Corpuscular Hemoglobin Concent 34.1 G/DL (32.0-36.0) Red Cell Distribution Width 11.7 % (11.6-14.8) Platelet Count 237 K/UL (150-450) Mean Platelet Volume 6.3 FL (6.5-10.1) L Neutrophils (%) (Auto) % (45.0-75.0) Lymphocytes (%) (Auto) % (20.0-45.0) Monocytes (%) (Auto) % (1.0-10.0) Eosinophils (%) (Auto) % (0.0-3.0) Basophils (%) (Auto) % (0.0-2.0) Differential Total Cells Counted 100 Neutrophils % (Manual) 86 % (45-75) H Lymphocytes % (Manual) 11 % (20-45) L Monocytes % (Manual) 3 % (1-10) Eosinophils % (Manual) 0 % (0-3) Basophils % (Manual) 0 % (0-2) Band Neutrophils 0 % (0-8) Platelet Estimate Adequate Platelet Morphology Normal Red Blood Cell Morphology Normal Sodium Level 145 MMOL/L (136-145) Potassium Level 3.2 MMOL/L (3.5-5.1) L Chloride Level 111 MMOL/L (98-107) H Carbon Dioxide Level 25 MMOL/L (21-32) Anion Gap 9 mmol/L (5-15) Blood Urea Nitrogen 9 mg/dL (7-18) Creatinine 0.8 MG/DL (0.55-1.30) Estimat Glomerular Filtration Rate mL/min (>60) Glucose Level 136 MG/DL (74-106) H Calcium Level 7.6 MG/DL (8.5-10.1) L Plan Problems: (1) Abdominal distention Assessment & Plan: similar to prior but now patient with more weight loss so distention more prominent soft, no perforation, non tender, but still massively distended discussed with patient at bedside. still having small multiple BM and flatus. no n/v he has functional colonic and bowel problem and not true obstruction discussed consideration for decompression and surgery he states currently he is not considering surgery as an option decompressed by GI with rectal tube stable will monitor advance diet as tolerated picc line for replacement electrolytes AM labs Rectal tube removed and abdominal becoming slightly more distended clinically no new symptoms Long discussion with patient about potential surgery and currently states he is not interested will follow with recs thank you There is massive distention of the sigmoid colon with more mild upstream distention of the remainder of the colon. The sigmoid colon measures up to 14 cm in AP dimension. Sigmoid is dilated to a clear transition point just to the right of midline in the pelvis where there is abnormal twisting/swirling of the mesentery around the narrow portion of sigmoid colon. As on the prior exam there is no proximal transition point or narrowing. There is no evidence of free intraperitoneal air or fluid. Some contrast is noted within the rectum. Uncertain if this was administered prior to the current study or if this represents residual from a prior contrast administration. There is a small hiatal hernia. There is thickening of the distal esophagus as well which may suggest esophagitis. There is no evidence of small bowel obstruction. There is mass effect on the intra-abdominal organs related to the markedly distended sigmoid colon. Liver, spleen grossly unremarkable. There is an unchanged indeterminate nodule in the lateral limb of the right adrenal gland which measures up to 1.1 cm. Stable in size compared to the prior exam. There is a large cyst in the upper pole left kidney which measures 6.2 cm. Smaller simple appearing cysts also noted in the left. There is no hydronephrosis or urinary tract stone. Pancreas and bladder grossly unremarkable. The prostate is enlarged and heterogeneous. Abdominal aorta is infrarenal abdominal aorta measures up to 3 cm AP with moderate atherosclerotic calcification. There are degenerative changes in the spine and bilateral hips. There is patchy sclerosis in the visualized osseous structures. No acute fracture. IMPRESSION: * Marked distention of the sigmoid colon up to a abrupt transition in the distal sigmoid where there is swirling in the mesentery concerning for volvulus. Similar to the prior exam no proximal transition point or narrowing is noted, instead there is upstream dilatation of the remainder of the colon. Recommend surgical evaluation and/or colonoscopy. * No evidence of free intraperitoneal air or fluid. * No small bowel obstruction. * Small hiatal hernia with thickening of the distal esophagus suggesting esophagitis. Consider correlation with endoscopy. 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 * Indeterminate right adrenal nodule measuring 1.1 cm, stable compared to the prior exam. * Left renal cysts, largest measures approximately 6.3 cm diameter. * Enlarged and heterogeneous prostate which may be on the basis of BPH. Correlation with prostate exam and PSA however is recommended. * Unusual osseous mineralization with patchy sclerosis, also seen previously and unchanged. This may be on the basis of chronic osteoporotic changes. Consider further evaluation with bone scan. (2) Ileus (3) Gastroparesis (4) Failure to thrive Assessment & Plan: Pt presented on admission with partial thickness pressure injury sacrum. Base of wound is moist-viable with surrounding darker skin tone without erythema or induration.Pt is emaciated. Skin very dry. R leg edematous. Both heels are Boggy but blanchable. Cavilon Skin Barrier applied to bony prominences of R and L hips and both heels to protect skin. Pt positrioned on aids with pillows and both heels off-loaded with pillow. Tx.Plan: Apply Moisture Barrier Paste to Sacrum . Cover with Optifoam drsg. Change every 3 days and prn. Apply Cavilon Skin Barrier to Bilat hips. Cover each hip with Optifoam drsg. Change every 7 days and prn. Apply Cavilon Skin Barrier to both heels.Cover each heel with Optifoam drsg. change every 7 days and prn. Reposition at least every 2hours or as tolerated. Off-load heels with pillow. Chava Smith Jul 17, 2019 14:01
--- NOTE | 2019-07-17 17:02 | Cardiac Electrophysiology PN ---
Assessment/Plan Assessment/Plan 1. Troponin leak. No chest pain or SOB. EKG is ventricularly paced. Echo Nl EF 2. Status post [facility] pacer. Interrogation showed normal pacemaker function. 3. Severe hypokalemia with Potassium as low as 1.7. On Aldactone 50 bid and more iv and po. K again 3.2 and received K phos iv 4. Hypernatremia better with IV fluid. 5. Possible bowel obstruction. CT scan of abdomen and pelvis showed marked distention of the sigmoid colon. No evidence of free intraperitoneal air or fluid. No small bowel obstruction. Fu Dr. Smith. DW RN Subjective Subjective No CP or SOB. RN at bedside. Had watery BM today. Objective Last 24 Hour Vital Signs Date Time Temp Pulse Resp B/P (MAP) Pulse Ox O2 Delivery O2 Flow Rate FiO2 07/17/19 16:00 97.4 76 18 138/84 (102) 99 07/17/19 12:16 98.4 69 19 136/76 (96) 99 07/17/19 08:55 147/67 (93) 07/17/19 08:43 Room Air 07/17/19 08:10 98.0 63 18 160/80 (106) 96 07/17/19 04:00 97.8 60 19 155/87 (109) 96 07/17/19 00:00 96.8 64 20 132/72 (92) 96 07/16/19 21:00 Room Air 07/16/19 20:00 98.1 60 20 135/70 (91) 96 Intake and Output 07/16/19 07/17/19 19:00 07:00 Intake Total 870.0 ml 2242.5 ml Balance 870.0 ml 2242.5 ml Intake Oral 760 ml IV Total 270.0 ml 882.5 ml Other 600 ml 600 ml # Voids 4 # Bowel Movements 1 Laboratory Tests Test 07/17/19 06:15 White Blood Count 11.2 K/UL (4.8-10.8) H Red Blood Count 3.97 M/UL (4.70-6.10) L Hemoglobin 12.4 G/DL (14.2-18.0) L Hematocrit 36.3 % (42.0-52.0) L Mean Corpuscular Volume 91 FL (80-99) Mean Corpuscular Hemoglobin 31.2 PG (27.0-31.0) H Mean Corpuscular Hemoglobin Concent 34.1 G/DL (32.0-36.0) Red Cell Distribution Width 11.7 % (11.6-14.8) Platelet Count 237 K/UL (150-450) Mean Platelet Volume 6.3 FL (6.5-10.1) L Neutrophils (%) (Auto) % (45.0-75.0) Lymphocytes (%) (Auto) % (20.0-45.0) Monocytes (%) (Auto) % (1.0-10.0) Eosinophils (%) (Auto) % (0.0-3.0) Basophils (%) (Auto) % (0.0-2.0) Differential Total Cells Counted 100 Neutrophils % (Manual) 86 % (45-75) H Lymphocytes % (Manual) 11 % (20-45) L Monocytes % (Manual) 3 % (1-10) Eosinophils % (Manual) 0 % (0-3) Basophils % (Manual) 0 % (0-2) Band Neutrophils 0 % (0-8) Platelet Estimate Adequate Platelet Morphology Normal Red Blood Cell Morphology Normal Sodium Level 145 MMOL/L (136-145) Potassium Level 3.2 MMOL/L (3.5-5.1) L Chloride Level 111 MMOL/L (98-107) H Carbon Dioxide Level 25 MMOL/L (21-32) Anion Gap 9 mmol/L (5-15) Blood Urea Nitrogen 9 mg/dL (7-18) Creatinine 0.8 MG/DL (0.55-1.30) Estimat Glomerular Filtration Rate mL/min (>60) Glucose Level 136 MG/DL (74-106) H Calcium Level 7.6 MG/DL (8.5-10.1) L Microbiology Date/Time Source Procedure Growth Status 07/15/19 15:00 Stool Stool Culture - Preliminary Gram Negative Bacillus 1 Gram Negative Bacillus 2 Resulted 07/15/19 15:00 Stool Clostridium difficile Toxin Assay - Final Complete Objective HEAD AND NECK: No JVD. LUNGS: Clear. CARDIOVASCULAR: Regular S1 and S2 with no gallop. 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 ABDOMEN: Soft EXTREMITIES: No pitting edema. Cedric Bernard MD Jul 17, 2019 17:02
--- NOTE | 2019-07-17 17:24 | Infectious Diseases Prog Note ---
Assessment/Plan Assessment/Plan IMPRESSION: line infiltration,ulceration in R leg UTI with E. 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 RECOMMENDATIONS: Continue Zosyn Subjective ROS Limited/Unobtainable: Yes Constitutional: Reports: no symptoms Respiratory: Reports: no symptoms Musculoskeletal: Reports: no symptoms Allergies: Coded Allergies: No Known Allergies (Unverified , 04/22/17) Objective Vital Signs Last 24 Hour Vital Signs Date Time Temp Pulse Resp B/P (MAP) Pulse Ox O2 Delivery O2 Flow Rate FiO2 07/17/19 16:00 97.4 76 18 138/84 (102) 99 07/17/19 12:16 98.4 69 19 136/76 (96) 99 07/17/19 08:55 147/67 (93) 07/17/19 08:43 Room Air 07/17/19 08:10 98.0 63 18 160/80 (106) 96 07/17/19 04:00 97.8 60 19 155/87 (109) 96 07/17/19 00:00 96.8 64 20 132/72 (92) 96 07/16/19 21:00 Room Air 07/16/19 20:00 98.1 60 20 135/70 (91) 96 Height (Feet): 5 Height (Inches): 10.00 Weight (Pounds): 151 General Appearance: no acute distress HEENT: mucous membranes moist Respiratory/Chest: lungs clear Cardiovascular: normal rate Abdomen: soft, non tender Extremities: no edema Skin: ulcers, other - posterior right leg Neurologic/Psychiatric: alert, responsive Microbiology Date/Time Source Procedure Growth Status 07/15/19 15:00 Stool Stool Culture - Preliminary Gram Negative Bacillus 1 Gram Negative Bacillus 2 Resulted 07/15/19 15:00 Stool Clostridium difficile Toxin Assay - Final Complete Laboratory Tests Test 07/17/19 06:15 White Blood Count 11.2 K/UL (4.8-10.8) H Red Blood Count 3.97 M/UL (4.70-6.10) L Hemoglobin 12.4 G/DL (14.2-18.0) L Hematocrit 36.3 % (42.0-52.0) L Mean Corpuscular Volume 91 FL (80-99) Mean Corpuscular Hemoglobin 31.2 PG (27.0-31.0) H Mean Corpuscular Hemoglobin Concent 34.1 G/DL (32.0-36.0) Red Cell Distribution Width 11.7 % (11.6-14.8) Platelet Count 237 K/UL (150-450) Mean Platelet Volume 6.3 FL (6.5-10.1) L Neutrophils (%) (Auto) % (45.0-75.0) Lymphocytes (%) (Auto) % (20.0-45.0) Monocytes (%) (Auto) % (1.0-10.0) Eosinophils (%) (Auto) % (0.0-3.0) Basophils (%) (Auto) % (0.0-2.0) Differential Total Cells Counted 100 Neutrophils % (Manual) 86 % (45-75) H Lymphocytes % (Manual) 11 % (20-45) L Monocytes % (Manual) 3 % (1-10) Eosinophils % (Manual) 0 % (0-3) Basophils % (Manual) 0 % (0-2) Band Neutrophils 0 % (0-8) Platelet Estimate Adequate Platelet Morphology Normal Red Blood Cell Morphology Normal Sodium Level 145 MMOL/L (136-145) Potassium Level 3.2 MMOL/L (3.5-5.1) L Chloride Level 111 MMOL/L (98-107) H Carbon Dioxide Level 25 MMOL/L (21-32) Anion Gap 9 mmol/L (5-15) Blood Urea Nitrogen 9 mg/dL (7-18) Creatinine 0.8 MG/DL (0.55-1.30) Estimat Glomerular Filtration Rate mL/min (>60) Glucose Level 136 MG/DL (74-106) H Calcium Level 7.6 MG/DL (8.5-10.1) L Current Medications Medications (Trade) Dose Ordered Sig/Kevin Route PRN Reason Start Time Stop Time Status Last Admin Dose Admin Acetaminophen (Tylenol) 650 mg Q4H PRN ORAL Mild Pain/Temp > 100.5 07/16/19 16:00 08/08/19 19:59 Chlorhexidine Gluconate (Alejandrina-Hex 2%) 1 applic DAILY@1999 TOPIC 07/16/19 20:00 08/12/19 19:59 07/16/19 20:51 Dextrose 1,000 ml @ 50 mls/hr Q20H IV 07/16/19 13:00 08/10/19 12:59 07/16/19 13:50 Diphenhydramine HCl (Benadryl) 25 mg Q6H PRN ORAL Itching 07/16/19 14:00 08/08/19 19:59 Heparin Sodium (Porcine) (Heparin 5000 units/ml) 5,000 units EVERY 12 HOURS SUBQ 07/16/19 21:00 08/08/19 20:59 07/17/19 08:48 Loperamide HCl (Imodium) 2 mg Q4H PRN ORAL Diarrhea 07/16/19 15:45 08/14/19 11:44 07/17/19 09:21 Mesalamine (Asacol) 1,600 mg THREE TIMES A DAY ORAL 07/16/19 13:00 08/10/19 12:59 Piperacillin Sod/ Tazobactam Sod 4.5 gm/Sodium Chloride 110 ml @ 27.5 mls/hr EVERY 8 HOURS IVPB 07/16/19 14:00 07/21/19 13:59 07/17/19 13:06 Potassium Chloride (K-Dur) 40 meq DAILY ORAL 07/18/19 09:00 08/17/19 08:59 Spironolactone (Aldactone) 50 mg EVERY 8 HOURS ORAL 07/16/19 14:00 08/10/19 11:59 Zolpidem Tartrate (Ambien) 5 mg HSPRN PRN ORAL Insomnia 07/16/19 13:30 07/22/19 13:20 Micky Avilez MD Jul 17, 2019 17:24
--- NOTE | 2019-07-17 19:00 | NUR ---
HAND-OFF: Report given to ANA PAULA LOMELI RESTING COMFORTABLY IN BED,NO SIGNIFICANT CHANGES ANA PAULA Trujillo.
--- NOTE | 2019-07-17 19:20 | NUR ---
NURSE NOTES: Received patient comfortably sleeping.Kept clean and dry.
--- NOTE | 2019-07-17 20:57 | General Progress Note ---
Assessment/Plan Problem List: (1) Ileus ICD Codes: K56.7 - Ileus, unspecified SNOMED: 370871147 (2) HTN (hypertension) ICD Codes: I10 - Essential (primary) hypertension SNOMED: 35753990 (3) Volvulus ICD Codes: K56.2 - Volvulus SNOMED: 0715151 (4) Abdominal distention ICD Codes: R14.0 - Abdominal distension (gaseous) SNOMED: 32371550 (5) Elevated troponin ICD Codes: R79.89 - Other specified abnormal findings of blood chemistry SNOMED: 238979680, 410700585, 904353809 (6) Hypokalemia ICD Codes: E87.6 - Hypokalemia SNOMED: 50812032 Status: stable Assessment/Plan: hypokalemia is improving no diarrhea dc planning cellulitis of le improving 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 Subjective ROS Limited/Unobtainable: Yes Allergies: Coded Allergies: No Known Allergies (Unverified , 04/22/17) Objective Last 24 Hour Vital Signs Date Time Temp Pulse Resp B/P (MAP) Pulse Ox O2 Delivery O2 Flow Rate FiO2 07/17/19 20:37 Room Air 07/17/19 20:16 97.9 59 19 128/67 (87) 99 07/17/19 16:00 97.4 76 18 138/84 (102) 99 07/17/19 12:16 98.4 69 19 136/76 (96) 99 07/17/19 08:55 147/67 (93) 07/17/19 08:43 Room Air 07/17/19 08:10 98.0 63 18 160/80 (106) 96 07/17/19 04:00 97.8 60 19 155/87 (109) 96 07/17/19 00:00 96.8 64 20 132/72 (92) 96 07/16/19 21:00 Room Air Intake and Output 07/16/19 07/17/19 18:59 06:59 Intake Total 820.0 ml 2292.5 ml Balance 820.0 ml 2292.5 ml Intake Oral 760 ml IV Total 220.0 ml 932.5 ml Other 600 ml 600 ml # Voids 4 # Bowel Movements 1 Laboratory Tests 07/17/19 06:15: White Blood Count 11.2H, Red Blood Count 3.97L, Hemoglobin 12.4L, Hematocrit 36.3L, Mean Corpuscular Volume 91, Mean Corpuscular Hemoglobin 31.2H, Mean Corpuscular Hemoglobin Concent 34.1, Red Cell Distribution Width 11.7, Platelet Count 237, Mean Platelet Volume 6.3L, Neutrophils (%) (Auto) , Lymphocytes (%) ( Auto) , Monocytes (%) (Auto) , Eosinophils (%) (Auto) , Basophils (%) (Auto) , Differential Total Cells Counted 100, Neutrophils % (Manual) 86H, Lymphocytes % (Manual) 11L, Monocytes % (Manual) 3, Eosinophils % (Manual) 0, Basophils % ( Manual) 0, Band Neutrophils 0, Platelet Estimate Adequate, Platelet Morphology Normal, Red Blood Cell Morphology Normal, Sodium Level 145, Potassium Level 3.2L , Chloride Level 111H, Carbon Dioxide Level 25, Anion Gap 9, Blood Urea Nitrogen 9, Creatinine 0.8, Estimat Glomerular Filtration Rate , Glucose Level 136H, Calcium Level 7.6L Height (Feet): 5 Height (Inches): 10.00 Weight (Pounds): 151 Cardiovascular: regular rhythm Respiratory/Chest: lungs clear Abdomen: soft Jose Francisco Chand MD Jul 17, 2019 20:57
[2019-07-17] MEDS: Dyna-Hex 2% Top Sol 2oz TOPIC SCH (21:04)
[2019-07-18 00:17] VITALS: BP 109/54
[2019-07-18 04:00] VITALS: BP 136/76
[2019-07-18] MEDS: Piperacillin/Tazobactam 4.5 GM in NS 110 ML IVPB SCH ×3 (04:58→20:02)
[2019-07-18] MEDS: Spironolactone 50mg tab ORAL SCH ×3 (04:58→20:02)
--- NOTE | 2019-07-18 07:19 | NUR ---
HAND-OFF: Report given to ANA PAULA Aponte.
--- NOTE | 2019-07-18 07:30 | NUR ---
NURSE NOTES: Pt awake, a/O x 3, forgetful. Denies pain, no SOB noted, tolerating diet well. no N/V. pts on speciality bed. turned and repositioned q2hrs. call light within reach, bed in low position, bed alarm on, fall precaution maintained.
[2019-07-18 07:48] LABS: BASOPHILS % (AUTO) 0.5 % (0.0-2.0); EOSINOPHILS % (AUTO) 0.4 % (0.0-3.0); HEMATOCRIT 34.4 % (42.0-52.0); HEMOGLOBIN 11.6 G/DL (14.2-18.0); MEAN CORPUSCULAR VOLUME 92 FL (80-99); MONOCYTES % (AUTO) 6.2 % (1.0-10.0); NEUTROPHILS % (AUTO) 79.9 % (45.0-75.0); PLATELET COUNT 222 K/UL (150-450); RED BLOOD COUNT 3.73 M/UL (4.70-6.10); RED CELL DISTRIBUTION WIDTH 11.8 % (11.6-14.8); WHITE BLOOD COUNT 8.5 K/UL (4.8-10.8)
[2019-07-18 08:00] VITALS: BP 138/71
[2019-07-18] MEDS: Heparin 5000 units/ml inj SUBQ SCH ×2 (08:14→20:02)
[2019-07-18] MEDS: Mesalamine 400mg cap ORAL SCH ×3 (08:15→17:04)
[2019-07-18 08:37] LABS: ALANINE AMINOTRANSFERASE 18 U/L (12-78); ALBUMIN 1.6 G/DL (3.4-5.0); ALBUMIN/GLOBULIN RATIO 0.4 (1.0-2.7); ALKALINE PHOSPHATASE 52 U/L (46-116); ANION GAP 8 mmol/L (5-15); ASPARTATE AMINO TRANSFERASE 15 U/L (15-37); BILIRUBIN,TOTAL 0.3 MG/DL (0.2-1.0); BLOOD UREA NITROGEN 5 mg/dL (7-18); CALCIUM 7.7 MG/DL (8.5-10.1); CARBON DIOXIDE 27 MMOL/L (21-32); CHLORIDE 110 MMOL/L (98-107); CREATININE 0.8 MG/DL (0.55-1.30); PHOSPHORUS 2.3 MG/DL (2.5-4.9); SODIUM 145 MMOL/L (136-145)
--- NOTE | 2019-07-18 08:42 | Cardiac Electrophysiology PN ---
Assessment/Plan Assessment/Plan 1. Troponin leak. No chest pain or SOB. EKG is ventricularly paced. Echo Nl EF 2. Status post [facility] pacer. Interrogation showed normal function. 3. Severe hypokalemia with Potassium as low as 1.7. On Aldactone 50 bid and more iv and po. K again 3.0. Kcl 40 meq po q 4 hrs x3 4. Hypernatremia better with IV fluid. 5. Possible bowel obstruction. CT scan of abdomen and pelvis showed marked distention of the sigmoid colon. No evidence of free intraperitoneal air or fluid. No small bowel obstruction. Fu Dr. Smith. DW RN Subjective Subjective No CP or SOB. RN at bedside. Objective Last 24 Hour Vital Signs Date Time Temp Pulse Resp B/P (MAP) Pulse Ox O2 Delivery O2 Flow Rate FiO2 07/18/19 04:00 97.0 61 19 136/76 (96) 95 07/18/19 00:17 97.5 61 20 109/54 (72) 97 07/17/19 20:37 Room Air 07/17/19 20:16 97.9 59 19 128/67 (87) 99 07/17/19 16:00 97.4 76 18 138/84 (102) 99 07/17/19 12:16 98.4 69 19 136/76 (96) 99 07/17/19 08:55 147/67 (93) 07/17/19 08:43 Room Air Intake and Output 07/17/19 07/18/19 19:00 07:00 Intake Total 1095.0 ml 1905.0 ml Output Total 100 ml Balance 1095.0 ml 1805.0 ml Intake Oral 640 ml IV Total 495.0 ml 665.0 ml Other 600 ml 600 ml Stool Total 100 ml # Voids 2 # Bowel Movements 1 Laboratory Tests Test 07/18/19 06:20 White Blood Count 8.5 K/UL (4.8-10.8) Red Blood Count 3.73 M/UL (4.70-6.10) L Hemoglobin 11.6 G/DL (14.2-18.0) L Hematocrit 34.4 % (42.0-52.0) L Mean Corpuscular Volume 92 FL (80-99) Mean Corpuscular Hemoglobin 31.0 PG (27.0-31.0) Mean Corpuscular Hemoglobin Concent 33.6 G/DL (32.0-36.0) Red Cell Distribution Width 11.8 % (11.6-14.8) Platelet Count 222 K/UL (150-450) Mean Platelet Volume 6.2 FL (6.5-10.1) L Neutrophils (%) (Auto) 79.9 % (45.0-75.0) H Lymphocytes (%) (Auto) 13.0 % (20.0-45.0) L Monocytes (%) (Auto) 6.2 % (1.0-10.0) Eosinophils (%) (Auto) 0.4 % (0.0-3.0) Basophils (%) (Auto) 0.5 % (0.0-2.0) Sodium Level 145 MMOL/L (136-145) Potassium Level 3.0 MMOL/L (3.5-5.1) L Chloride Level 110 MMOL/L (98-107) H Carbon Dioxide Level 27 MMOL/L (21-32) Anion Gap 8 mmol/L (5-15) Blood Urea Nitrogen 5 mg/dL (7-18) L Creatinine 0.8 MG/DL (0.55-1.30) Estimat Glomerular Filtration Rate mL/min (>60) Glucose Level 76 MG/DL (74-106) Calcium Level 7.7 MG/DL (8.5-10.1) L Phosphorus Level 2.3 MG/DL (2.5-4.9) L Magnesium Level 1.7 MG/DL (1.8-2.4) L Total Bilirubin 0.3 MG/DL (0.2-1.0) Aspartate Amino Transf (AST/SGOT) 15 U/L (15-37) Alanine Aminotransferase (ALT/SGPT) 18 U/L (12-78) Alkaline Phosphatase 52 U/L (46-116) Total Protein 5.2 G/DL (6.4-8.2) L Albumin 1.6 G/DL (3.4-5.0) L Globulin 3.6 g/dL Albumin/Globulin Ratio 0.4 (1.0-2.7) L Microbiology Date/Time Source Procedure Growth Status 07/15/19 15:00 Stool Stool Culture - Preliminary Gram Negative Bacillus 1 Gram Negative Bacillus 2 Resulted 07/15/19 15:00 Stool Clostridium difficile Toxin Assay - Final Complete Objective HEAD AND NECK: No JVD. LUNGS: Clear. CARDIOVASCULAR: Regular S1 and S2 with no gallop. 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 ABDOMEN: Soft EXTREMITIES: No pitting edema. Cedric Bernard MD Jul 18, 2019 08:42
--- NOTE | 2019-07-18 10:51 | General Progress Note ---
Assessment/Plan Problem List: (1) Hypokalemia ICD Codes: E87.6 - Hypokalemia SNOMED: 03938416 (2) Dehydration ICD Codes: E86.0 - Dehydration SNOMED: 30982625 (3) Failure to thrive SNOMED: 93740876 Qualifiers: Qualified Codes: R62.7 - Adult failure to thrive (4) Volvulus ICD Codes: K56.2 - Volvulus SNOMED: 7738303 (5) Abdominal distention ICD Codes: R14.0 - Abdominal distension (gaseous) SNOMED: 74561015 (6) HTN (hypertension) ICD Codes: I10 - Essential (primary) hypertension SNOMED: 84293705 (7) Diabetes mellitus ICD Codes: E11.9 - Type 2 diabetes mellitus without complications SNOMED: 70758539 Status: stable Assessment/Plan: Assessment/Plan rectal tube for colonic decompression correct K serial imaging prn prn transfusions follow labs on imodium, lomotil, mesalamine Subjective ROS Limited/Unobtainable: Yes Allergies: Coded Allergies: No Known Allergies (Unverified , 04/22/17) Subjective refusing meds Objective Last 24 Hour Vital Signs Date Time Temp Pulse Resp B/P (MAP) Pulse Ox O2 Delivery O2 Flow Rate FiO2 07/18/19 08:00 Room Air 07/18/19 08:00 98.5 60 18 138/71 (93) 100 07/18/19 04:00 97.0 61 19 136/76 (96) 95 07/18/19 00:17 97.5 61 20 109/54 (72) 97 07/17/19 20:37 Room Air 07/17/19 20:16 97.9 59 19 128/67 (87) 99 07/17/19 16:00 97.4 76 18 138/84 (102) 99 07/17/19 12:16 98.4 69 19 136/76 (96) 99 Intake and Output 07/17/19 07/18/19 19:00 07:00 Intake Total 1095.0 ml 1905.0 ml Output Total 100 ml Balance 1095.0 ml 1805.0 ml Intake Oral 640 ml IV Total 495.0 ml 665.0 ml Other 600 ml 600 ml Stool Total 100 ml # Voids 2 # Bowel Movements 1 Laboratory Tests 07/18/19 06:20: White Blood Count 8.5, Red Blood Count 3.73L, Hemoglobin 11.6L, Hematocrit 34.4L , Mean Corpuscular Volume 92, Mean Corpuscular Hemoglobin 31.0, Mean Corpuscular Hemoglobin Concent 33.6, Red Cell Distribution Width 11.8, Platelet Count 222, Mean Platelet Volume 6.2L, Neutrophils (%) (Auto) 79.9H, Lymphocytes (%) (Auto) 13.0L, Monocytes (%) (Auto) 6.2, Eosinophils (%) (Auto) 0.4, Basophils (%) (Auto) 0.5, Sodium Level 145, Potassium Level 3.0L, Chloride Level 110H, Carbon Dioxide Level 27, Anion Gap 8, Blood Urea Nitrogen 5L, Creatinine 0.8, Estimat Glomerular Filtration Rate , Glucose Level 76, Calcium Level 7.7L, Phosphorus Level 2.3L, Magnesium Level 1.7L, Total Bilirubin 0.3, Aspartate Amino Transf (AST/SGOT) 15, Alanine Aminotransferase (ALT/SGPT) 18, Alkaline Phosphatase 52, Total Protein 5.2L, Albumin 1.6L, Globulin 3.6, Albumin /Globulin Ratio 0.4L Height (Feet): 5 Height (Inches): 10.00 Weight (Pounds): 151 General Appearance: alert EENT: normal ENT inspection Neck: normal alignment Cardiovascular: normal rate Respiratory/Chest: decreased breath sounds Abdomen: normal bowel sounds, non tender, soft Extremities: non-tender Tavares Ortiz MD Jul 18, 2019 10:51
[2019-07-18] MEDS ORDERED: Potassium Phosphate 30 MM in NS 275 ML IV ONE (11:15)
[2019-07-18 12:00] VITALS: BP 126/79
--- NOTE | 2019-07-18 12:49 | General Progress Note ---
Assessment/Plan Problem List: (1) Ileus ICD Codes: K56.7 - Ileus, unspecified SNOMED: 647525228 (2) HTN (hypertension) ICD Codes: I10 - Essential (primary) hypertension SNOMED: 09417087 (3) Volvulus ICD Codes: K56.2 - Volvulus SNOMED: 8647481 (4) Abdominal distention ICD Codes: R14.0 - Abdominal distension (gaseous) SNOMED: 59766360 (5) Elevated troponin ICD Codes: R79.89 - Other specified abnormal findings of blood chemistry SNOMED: 173853393, 672516486, 849946306 (6) Hypokalemia ICD Codes: E87.6 - Hypokalemia SNOMED: 43329323 Status: stable, progressing Assessment/Plan: k is better possible dc in am afebrile cellulitis of le improving 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 Subjective ROS Limited/Unobtainable: Yes Allergies: Coded Allergies: No Known Allergies (Unverified , 04/22/17) Objective Last 24 Hour Vital Signs Date Time Temp Pulse Resp B/P (MAP) Pulse Ox O2 Delivery O2 Flow Rate FiO2 07/18/19 08:00 Room Air 07/18/19 08:00 98.5 60 18 138/71 (93) 100 07/18/19 04:00 97.0 61 19 136/76 (96) 95 07/18/19 00:17 97.5 61 20 109/54 (72) 97 07/17/19 20:37 Room Air 07/17/19 20:16 97.9 59 19 128/67 (87) 99 07/17/19 16:00 97.4 76 18 138/84 (102) 99 Intake and Output 07/17/19 07/18/19 19:00 07:00 Intake Total 1095.0 ml 1905.0 ml Output Total 100 ml Balance 1095.0 ml 1805.0 ml Intake Oral 640 ml IV Total 495.0 ml 665.0 ml Other 600 ml 600 ml Stool Total 100 ml # Voids 2 # Bowel Movements 1 Laboratory Tests 07/18/19 06:20: White Blood Count 8.5, Red Blood Count 3.73L, Hemoglobin 11.6L, Hematocrit 34.4L , Mean Corpuscular Volume 92, Mean Corpuscular Hemoglobin 31.0, Mean Corpuscular Hemoglobin Concent 33.6, Red Cell Distribution Width 11.8, Platelet Count 222, Mean Platelet Volume 6.2L, Neutrophils (%) (Auto) 79.9H, Lymphocytes (%) (Auto) 13.0L, Monocytes (%) (Auto) 6.2, Eosinophils (%) (Auto) 0.4, Basophils (%) (Auto) 0.5, Sodium Level 145, Potassium Level 3.0L, Chloride Level 110H, Carbon Dioxide Level 27, Anion Gap 8, Blood Urea Nitrogen 5L, Creatinine 0.8, Estimat Glomerular Filtration Rate , Glucose Level 76, Calcium Level 7.7L, Phosphorus Level 2.3L, Magnesium Level 1.7L, Total Bilirubin 0.3, Aspartate Amino Transf (AST/SGOT) 15, Alanine Aminotransferase (ALT/SGPT) 18, Alkaline Phosphatase 52, Total Protein 5.2L, Albumin 1.6L, Globulin 3.6, Albumin /Globulin Ratio 0.4L Height (Feet): 5 Height (Inches): 10.00 Weight (Pounds): 151 Cardiovascular: normal rate Respiratory/Chest: lungs clear Abdomen: soft Jose Francisco Chand MD Jul 18, 2019 12:49
--- NOTE | 2019-07-18 13:03 | Surgery Progress Note ---
Surgery Progress Note Subjective Additional Comments No acute events. Labs improved. Exam stable. Becoming mildly distended ever since rectal tube removed. Tolerating diet. No complaints. Objective Last 24 Hour Vital Signs Date Time Temp Pulse Resp B/P (MAP) Pulse Ox O2 Delivery O2 Flow Rate FiO2 07/18/19 08:00 Room Air 07/18/19 08:00 98.5 60 18 138/71 (93) 100 07/18/19 04:00 97.0 61 19 136/76 (96) 95 07/18/19 00:17 97.5 61 20 109/54 (72) 97 07/17/19 20:37 Room Air 07/17/19 20:16 97.9 59 19 128/67 (87) 99 07/17/19 16:00 97.4 76 18 138/84 (102) 99 I&O Intake and Output 07/17/19 07/18/19 19:00 07:00 Intake Total 1095.0 ml 1905.0 ml Output Total 100 ml Balance 1095.0 ml 1805.0 ml Intake Oral 640 ml IV Total 495.0 ml 665.0 ml Other 600 ml 600 ml Stool Total 100 ml # Voids 2 # Bowel Movements 1 Cardiovascular: RSR Respiratory: clear Abdomen: soft, distended, non-tender, decreased bowel sounds Extremities: no edema, no tenderness, no cyanosis Laboratory Tests Test 07/18/19 06:20 White Blood Count 8.5 K/UL (4.8-10.8) Red Blood Count 3.73 M/UL (4.70-6.10) L Hemoglobin 11.6 G/DL (14.2-18.0) L Hematocrit 34.4 % (42.0-52.0) L Mean Corpuscular Volume 92 FL (80-99) Mean Corpuscular Hemoglobin 31.0 PG (27.0-31.0) Mean Corpuscular Hemoglobin Concent 33.6 G/DL (32.0-36.0) Red Cell Distribution Width 11.8 % (11.6-14.8) Platelet Count 222 K/UL (150-450) Mean Platelet Volume 6.2 FL (6.5-10.1) L Neutrophils (%) (Auto) 79.9 % (45.0-75.0) H Lymphocytes (%) (Auto) 13.0 % (20.0-45.0) L Monocytes (%) (Auto) 6.2 % (1.0-10.0) Eosinophils (%) (Auto) 0.4 % (0.0-3.0) Basophils (%) (Auto) 0.5 % (0.0-2.0) Sodium Level 145 MMOL/L (136-145) Potassium Level 3.0 MMOL/L (3.5-5.1) L Chloride Level 110 MMOL/L (98-107) H Carbon Dioxide Level 27 MMOL/L (21-32) Anion Gap 8 mmol/L (5-15) Blood Urea Nitrogen 5 mg/dL (7-18) L Creatinine 0.8 MG/DL (0.55-1.30) Estimat Glomerular Filtration Rate mL/min (>60) Glucose Level 76 MG/DL (74-106) Calcium Level 7.7 MG/DL (8.5-10.1) L Phosphorus Level 2.3 MG/DL (2.5-4.9) L Magnesium Level 1.7 MG/DL (1.8-2.4) L Total Bilirubin 0.3 MG/DL (0.2-1.0) Aspartate Amino Transf (AST/SGOT) 15 U/L (15-37) Alanine Aminotransferase (ALT/SGPT) 18 U/L (12-78) Alkaline Phosphatase 52 U/L (46-116) Total Protein 5.2 G/DL (6.4-8.2) L Albumin 1.6 G/DL (3.4-5.0) L Globulin 3.6 g/dL Albumin/Globulin Ratio 0.4 (1.0-2.7) L Plan Problems: (1) Abdominal distention Assessment & Plan: similar to prior but now patient with more weight loss so distention more prominent soft, no perforation, non tender, but still massively distended discussed with patient at bedside. still having small multiple BM and flatus. no n/v he has functional colonic and bowel problem and not true obstruction discussed consideration for decompression and surgery he states currently he is not considering surgery as an option decompressed by GI with rectal tube stable will monitor advance diet as tolerated picc line for replacement electrolytes AM labs Rectal tube removed and abdominal becoming slightly more distended clinically no new symptoms Long discussion with patient about potential surgery and currently states he is not interested will follow with recs thank you There is massive distention of the sigmoid colon with more mild upstream distention of the remainder of the colon. The sigmoid colon measures up to 14 cm in AP dimension. Sigmoid is dilated to a clear transition point just to the right of midline in the pelvis where there is abnormal twisting/swirling of the mesentery around the narrow portion of sigmoid colon. As on the prior exam there is no proximal transition point or narrowing. There is no evidence of free intraperitoneal air or fluid. Some contrast is noted within the rectum. Uncertain if this was administered prior to the current study or if this represents residual from a prior contrast administration. There is a small hiatal hernia. There is thickening of the distal esophagus as well which may suggest esophagitis. There is no evidence of small bowel obstruction. There is mass effect on the intra-abdominal organs related to the markedly distended sigmoid colon. Liver, spleen grossly unremarkable. There is an unchanged indeterminate nodule in the lateral limb of the right adrenal gland which measures up to 1.1 cm. Stable in size compared to the prior exam. There is a large cyst in the upper pole left kidney which measures 6.2 cm. Smaller simple appearing cysts also noted in the left. There is no hydronephrosis or urinary tract stone. Pancreas and bladder grossly unremarkable. The prostate is enlarged and heterogeneous. Abdominal aorta is infrarenal abdominal aorta measures up to 3 cm AP with moderate atherosclerotic calcification. There are degenerative changes in the spine and bilateral hips. There is patchy sclerosis in the visualized osseous structures. No acute fracture. IMPRESSION: * Marked distention of the sigmoid colon up to a abrupt transition in the distal sigmoid where there is swirling in the mesentery concerning for volvulus. Similar to the prior exam no proximal transition point or narrowing is noted, instead there is upstream dilatation of the remainder of the colon. Recommend surgical evaluation and/or colonoscopy. * No evidence of free intraperitoneal air or fluid. * No small bowel obstruction. * Small hiatal hernia with thickening of the distal esophagus suggesting esophagitis. Consider correlation with endoscopy. 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 * Indeterminate right adrenal nodule measuring 1.1 cm, stable compared to the prior exam. * Left renal cysts, largest measures approximately 6.3 cm diameter. * Enlarged and heterogeneous prostate which may be on the basis of BPH. Correlation with prostate exam and PSA however is recommended. * Unusual osseous mineralization with patchy sclerosis, also seen previously and unchanged. This may be on the basis of chronic osteoporotic changes. Consider further evaluation with bone scan. (2) Ileus (3) Gastroparesis (4) Failure to thrive Assessment & Plan: Pt presented on admission with partial thickness pressure injury sacrum. Base of wound is moist-viable with surrounding darker skin tone without erythema or induration.Pt is emaciated. Skin very dry. R leg edematous. Both heels are Boggy but blanchable. Cavilon Skin Barrier applied to bony prominences of R and L hips and both heels to protect skin. Pt positrioned on aids with pillows and both heels off-loaded with pillow. Tx.Plan: Apply Moisture Barrier Paste to Sacrum . Cover with Optifoam drsg. Change every 3 days and prn. Apply Cavilon Skin Barrier to Bilat hips. Cover each hip with Optifoam drsg. Change every 7 days and prn. Apply Cavilon Skin Barrier to both heels.Cover each heel with Optifoam drsg. change every 7 days and prn. Reposition at least every 2hours or as tolerated. Off-load heels with pillow. Chava Smith Jul 18, 2019 13:03
--- NOTE | 2019-07-18 13:37 | NUR ---
NURSE NOTES: Pt refused PO meds/ K , notified Dr Borja. no new order received.
--- NOTE | 2019-07-18 14:10 | NUR ---
NURSE NOTES: pts dressing change per order. elevated Marty lower extremities.
--- NOTE | 2019-07-18 14:54 | Nephrology Progress Note ---
Assessment/Plan Problem List: (1) Hypokalemia Assessment: due to diarrhea (2) Dehydration (3) Failure to thrive (4) Elevated troponin (5) Abdominal distention Assessment HypoKalemia Severe UTI HTN Ileus FFT troponin Leak Pacemaker Plan patient refuses PO meds most of the time trial immodium K supplement IV and PO resume Aldactone resume Asacol monitor lytes per orders check TSH Subjective ROS Limited/Unobtainable: No Constitutional: Reports: malaise Objective Objective Last 24 Hour Vital Signs Date Time Temp Pulse Resp B/P (MAP) Pulse Ox O2 Delivery O2 Flow Rate FiO2 07/18/19 12:00 97.6 67 18 126/79 (95) 100 07/18/19 08:00 Room Air 07/18/19 08:00 98.5 60 18 138/71 (93) 100 07/18/19 04:00 97.0 61 19 136/76 (96) 95 07/18/19 00:17 97.5 61 20 109/54 (72) 97 07/17/19 20:37 Room Air 07/17/19 20:16 97.9 59 19 128/67 (87) 99 07/17/19 16:00 97.4 76 18 138/84 (102) 99 Intake and Output 07/17/19 07/18/19 19:00 07:00 Intake Total 1095.0 ml 1905.0 ml Output Total 100 ml Balance 1095.0 ml 1805.0 ml Intake Oral 640 ml IV Total 495.0 ml 665.0 ml Other 600 ml 600 ml Stool Total 100 ml # Voids 2 # Bowel Movements 1 Laboratory Tests 07/18/19 06:20: White Blood Count 8.5, Red Blood Count 3.73L, Hemoglobin 11.6L, Hematocrit 34.4L , Mean Corpuscular Volume 92, Mean Corpuscular Hemoglobin 31.0, Mean Corpuscular Hemoglobin Concent 33.6, Red Cell Distribution Width 11.8, Platelet Count 222, Mean Platelet Volume 6.2L, Neutrophils (%) (Auto) 79.9H, Lymphocytes (%) (Auto) 13.0L, Monocytes (%) (Auto) 6.2, Eosinophils (%) (Auto) 0.4, Basophils (%) (Auto) 0.5, Sodium Level 145, Potassium Level 3.0L, Chloride Level 110H, Carbon Dioxide Level 27, Anion Gap 8, Blood Urea Nitrogen 5L, Creatinine 0.8, Estimat Glomerular Filtration Rate , Glucose Level 76, Calcium Level 7.7L, Phosphorus Level 2.3L, Magnesium Level 1.7L, Total Bilirubin 0.3, Aspartate Amino Transf (AST/SGOT) 15, Alanine Aminotransferase (ALT/SGPT) 18, Alkaline Phosphatase 52, Total Protein 5.2L, Albumin 1.6L, Globulin 3.6, Albumin /Globulin Ratio 0.4L Height (Feet): 5 Height (Inches): 10.00 Weight (Pounds): 151 General Appearance: no apparent distress Objective no change Herve Marshall MD Jul 18, 2019 14:54
[2019-07-18 16:00] VITALS: BP 151/79
--- NOTE | 2019-07-18 19:20 | NUR ---
HAND-OFF: Report given to YANI GOSS.
--- NOTE | 2019-07-18 19:26 | NUR ---
NURSE NOTES: Received patient awake,verbal,resting in bed,comfortable.
[2019-07-18 19:58] VITALS: BP 129/89
[2019-07-18] MEDS: Dyna-Hex 2% Top Sol 2oz TOPIC SCH (20:01)
[2019-07-19] VITALS: BP 144/65
[2019-07-19 04:00] VITALS: BP 140/62
[2019-07-19] MEDS: Piperacillin/Tazobactam 4.5 GM in NS 110 ML IVPB SCH (04:52)
[2019-07-19] MEDS: Spironolactone 50mg tab ORAL SCH ×3 (05:21→21:55)
--- NOTE | 2019-07-19 07:00 | NUR ---
HAND-OFF: Report given to ANA PAULA Aponte.
--- NOTE | 2019-07-19 07:16 | NUR ---
NURSE NOTES: pt resting in bed, denies pain, no SOB. PICC line LUE , CDI. pts on IVF and Abx. Dressing RLE /sacral/hips, heels CDI. pts NPO xray of abd am. call light within reach. bed in low position, bed alarm on , fall precaution maintained. will continue to monitor.
[2019-07-19 07:45] LABS: BASOPHILS % (AUTO) 0.3 % (0.0-2.0); EOSINOPHILS % (AUTO) 0.3 % (0.0-3.0); HEMATOCRIT 40.7 % (42.0-52.0); HEMOGLOBIN 13.5 G/DL (14.2-18.0); LYMPHOCYTES % (AUTO) 9.4 % (20.0-45.0); MEAN CORPUSCULAR VOLUME 93 FL (80-99); MONOCYTES % (AUTO) 6.1 % (1.0-10.0); NEUTROPHILS % (AUTO) 83.9 % (45.0-75.0); PLATELET COUNT 233 K/UL (150-450); RED BLOOD COUNT 4.39 M/UL (4.70-6.10); RED CELL DISTRIBUTION WIDTH 12.4 % (11.6-14.8); WHITE BLOOD COUNT 8.1 K/UL (4.8-10.8)
[2019-07-19 08:00] VITALS: BP 121/86
[2019-07-19] MEDS: Mesalamine 400mg cap ORAL SCH ×3 (09:00→17:19)
[2019-07-19] MEDS: Heparin 5000 units/ml inj SUBQ SCH ×2 (09:00→20:52)
[2019-07-19 09:34] LABS: PHOSPHORUS 2.3 MG/DL (2.5-4.9)
[2019-07-19 09:37] LABS: ALANINE AMINOTRANSFERASE 17 U/L (12-78); ALBUMIN 1.6 G/DL (3.4-5.0); ALBUMIN/GLOBULIN RATIO 0.4 (1.0-2.7); ALKALINE PHOSPHATASE 59 U/L (46-116); ANION GAP 6 mmol/L (5-15); ASPARTATE AMINO TRANSFERASE 14 U/L (15-37); BILIRUBIN,TOTAL 0.3 MG/DL (0.2-1.0); BLOOD UREA NITROGEN 5 mg/dL (7-18); CALCIUM 7.6 MG/DL (8.5-10.1); CARBON DIOXIDE 27 MMOL/L (21-32); CHLORIDE 111 MMOL/L (98-107); CREATININE 0.8 MG/DL (0.55-1.30); POTASSIUM 3.3 MMOL/L (3.5-5.1); SODIUM 144 MMOL/L (136-145)
--- NOTE | 2019-07-19 10:44 | Infectious Diseases Prog Note ---
Assessment/Plan Assessment/Plan IMPRESSION: line infiltration,ulceration in R leg UTI with E. 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 RECOMMENDATIONS: discontinue Zosyn Agree with discharge Remove PICC line Subjective ROS Limited/Unobtainable: Yes Constitutional: Denies: fever Respiratory: Reports: no symptoms Musculoskeletal: Reports: no symptoms Allergies: Coded Allergies: No Known Allergies (Unverified , 04/22/17) Objective Vital Signs Last 24 Hour Vital Signs Date Time Temp Pulse Resp B/P (MAP) Pulse Ox O2 Delivery O2 Flow Rate FiO2 07/19/19 09:00 Room Air 07/19/19 08:00 97.4 67 18 121/86 (98) 100 07/19/19 04:00 97.7 63 19 140/62 (88) 95 07/19/19 00:00 96.8 62 19 144/65 (91) 98 07/18/19 20:31 Room Air 07/18/19 19:58 97.9 63 19 129/89 (102) 100 07/18/19 16:00 98.7 63 18 151/79 (103) 100 07/18/19 12:00 97.6 67 18 126/79 (95) 100 Height (Feet): 5 Height (Inches): 10.00 Weight (Pounds): 151 General Appearance: no acute distress HEENT: mucous membranes moist Respiratory/Chest: lungs clear Cardiovascular: normal rate, other - R arm PICC line Abdomen: soft, non tender Extremities: other - left hand edema Skin: ulcers, other - R posterior leg Neurologic/Psychiatric: alert, responsive Laboratory Tests Test 07/19/19 05:54 07/19/19 08:50 White Blood Count 8.1 K/UL (4.8-10.8) Red Blood Count 4.39 M/UL (4.70-6.10) L Hemoglobin 13.5 G/DL (14.2-18.0) L Hematocrit 40.7 % (42.0-52.0) L Mean Corpuscular Volume 93 FL (80-99) Mean Corpuscular Hemoglobin 30.9 PG (27.0-31.0) Mean Corpuscular Hemoglobin Concent 33.3 G/DL (32.0-36.0) Red Cell Distribution Width 12.4 % (11.6-14.8) Platelet Count 233 K/UL (150-450) Mean Platelet Volume 5.5 FL (6.5-10.1) L Neutrophils (%) (Auto) 83.9 % (45.0-75.0) H Lymphocytes (%) (Auto) 9.4 % (20.0-45.0) L Monocytes (%) (Auto) 6.1 % (1.0-10.0) Eosinophils (%) (Auto) 0.3 % (0.0-3.0) Basophils (%) (Auto) 0.3 % (0.0-2.0) Sodium Level 144 MMOL/L (136-145) Potassium Level 3.3 MMOL/L (3.5-5.1) L Chloride Level 111 MMOL/L (98-107) H Carbon Dioxide Level 27 MMOL/L (21-32) Anion Gap 6 mmol/L (5-15) Blood Urea Nitrogen 5 mg/dL (7-18) L Creatinine 0.8 MG/DL (0.55-1.30) Estimat Glomerular Filtration Rate mL/min (>60) Glucose Level 89 MG/DL (74-106) Calcium Level 7.6 MG/DL (8.5-10.1) L Phosphorus Level 2.3 MG/DL (2.5-4.9) L Magnesium Level 2.1 MG/DL (1.8-2.4) Total Bilirubin 0.3 MG/DL (0.2-1.0) Aspartate Amino Transf (AST/SGOT) 14 U/L (15-37) L Alanine Aminotransferase (ALT/SGPT) 17 U/L (12-78) Alkaline Phosphatase 59 U/L (46-116) Total Protein 5.4 G/DL (6.4-8.2) L Albumin 1.6 G/DL (3.4-5.0) L Globulin 3.8 g/dL Albumin/Globulin Ratio 0.4 (1.0-2.7) L Current Medications Medications (Trade) Dose Ordered Sig/Kevin Route PRN Reason Start Time Stop Time Status Last Admin Dose Admin Acetaminophen (Tylenol) 650 mg Q4H PRN ORAL Mild Pain/Temp > 100.5 07/16/19 16:00 08/08/19 19:59 Chlorhexidine Gluconate (Alejandrina-Hex 2%) 1 applic DAILY@2000 TOPIC 07/16/19 20:00 08/12/19 19:59 07/18/19 20:01 Dextrose 1,000 ml @ 50 mls/hr Q20H IV 07/16/19 13:00 08/10/19 12:59 07/18/19 20:02 Diphenhydramine HCl (Benadryl) 25 mg Q6H PRN ORAL Itching 07/16/19 14:00 08/08/19 19:59 Heparin Sodium (Porcine) (Heparin 5000 units/ml) 5,000 units EVERY 12 HOURS SUBQ 07/16/19 21:00 08/08/19 20:59 07/18/19 20:02 Loperamide HCl (Imodium) 2 mg Q4H PRN ORAL Diarrhea 07/16/19 15:45 08/14/19 11:44 07/17/19 09:21 Mesalamine (Asacol) 1,600 mg THREE TIMES A DAY ORAL 07/16/19 13:00 08/10/19 12:59 07/18/19 08:15 Piperacillin Sod/ Tazobactam Sod 4.5 gm/Sodium Chloride 110 ml @ 27.5 mls/hr EVERY 8 HOURS IVPB 07/16/19 14:00 07/21/19 13:59 07/19/19 04:52 Potassium Chloride (K-Dur) 40 meq DAILY ORAL 07/18/19 09:00 08/17/19 08:59 07/18/19 08:15 Spironolactone (Aldactone) 50 mg EVERY 8 HOURS ORAL 07/16/19 14:00 08/10/19 11:59 07/18/19 20:02 Zolpidem Tartrate (Ambien) 5 mg HSPRN PRN ORAL Insomnia 07/16/19 13:30 07/22/19 13:20 Micky Avilez MD Jul 19, 2019 10:44
--- NOTE | 2019-07-19 10:45 | NUR ---
RADIOLOGY DEPT., ABDOMEN X-RAY DONE.-P.DYE
--- NOTE | 2019-07-19 11:00 | Nephrology Progress Note ---
Assessment/Plan Problem List: (1) Hypokalemia Assessment: due to diarrhea (2) Dehydration (3) Failure to thrive (4) Elevated troponin (5) Abdominal distention Assessment HypoKalemia Severe UTI HTN Ileus FFT troponin Leak Pacemaker Plan patient refuses PO meds most of the time trial immodium for diarrhea K supplement IV and PO as needed Aldactone Asacol monitor lytes per orders check TSH Patient is OK for DC need to have electrolyte check twice weekly in ECF Subjective ROS Limited/Unobtainable: No Constitutional: Reports: malaise Objective Objective Last 24 Hour Vital Signs Date Time Temp Pulse Resp B/P (MAP) Pulse Ox O2 Delivery O2 Flow Rate FiO2 07/19/19 09:00 Room Air 07/19/19 08:00 97.4 67 18 121/86 (98) 100 07/19/19 04:00 97.7 63 19 140/62 (88) 95 07/19/19 00:00 96.8 62 19 144/65 (91) 98 07/18/19 20:31 Room Air 07/18/19 19:58 97.9 63 19 129/89 (102) 100 07/18/19 16:00 98.7 63 18 151/79 (103) 100 07/18/19 12:00 97.6 67 18 126/79 (95) 100 Intake and Output 07/18/19 07/19/19 19:00 07:00 Intake Total 532.5 ml 2577.5 ml Balance 532.5 ml 2577.5 ml Intake Oral 640 ml IV Total 532.5 ml 637.5 ml Other 1300 ml # Voids 2 # Bowel Movements 1 Laboratory Tests 07/19/19 05:54: White Blood Count 8.1, Red Blood Count 4.39L, Hemoglobin 13.5L, Hematocrit 40.7L , Mean Corpuscular Volume 93, Mean Corpuscular Hemoglobin 30.9, Mean Corpuscular Hemoglobin Concent 33.3, Red Cell Distribution Width 12.4, Platelet Count 233, Mean Platelet Volume 5.5L, Neutrophils (%) (Auto) 83.9H, Lymphocytes (%) (Auto) 9.4L, Monocytes (%) (Auto) 6.1, Eosinophils (%) (Auto) 0.3, Basophils (%) (Auto) 0.3 07/19/19 08:50: Sodium Level 144, Potassium Level 3.3L, Chloride Level 111H, Carbon Dioxide Level 27, Anion Gap 6, Blood Urea Nitrogen 5L, Creatinine 0.8, Estimat Glomerular Filtration Rate , Glucose Level 89, Calcium Level 7.6L, Phosphorus Level 2.3L, Magnesium Level 2.1, Total Bilirubin 0.3, Aspartate Amino Transf ( AST/SGOT) 14L, Alanine Aminotransferase (ALT/SGPT) 17, Alkaline Phosphatase 59, Total Protein 5.4L, Albumin 1.6L, Globulin 3.8, Albumin/Globulin Ratio 0.4L Height (Feet): 5 Height (Inches): 10.00 Weight (Pounds): 151 General Appearance: no apparent distress Respiratory/Chest: decreased breath sounds Abdomen: soft Objective no change Herve Marshall MD Jul 19, 2019 10:59
[2019-07-19 12:00] VITALS: BP 138/72
[2019-07-19] MEDS ORDERED: Potassium Phosphate 30 MM in NS 275 ML IV ONE (13:00)
--- NOTE | 2019-07-19 13:17 | GI Progress Note ---
Assessment/Plan Problems: (1) Dehydration ICD Codes: E86.0 - Dehydration SNOMED: 45910024 (2) Failure to thrive SNOMED: 65494870 Qualifiers: Qualified Codes: R62.7 - Adult failure to thrive (3) Abdominal distention ICD Codes: R14.0 - Abdominal distension (gaseous) SNOMED: 11883733 (4) Gastroparesis ICD Codes: K31.84 - Gastroparesis SNOMED: 039979971 Status: stable Status Narrative Discussed with Dr. Ortiz. Assessment/Plan rectal tube for colonic decompression, removed correct K serial imaging prn prn transfusions follow labs on imodium, lomotil, mesalamine dc planning The patient was seen and examined at bedside and all new and available data was reviewed in the patients chart. I agree with the above findings, impression and plan. (Patient seen earlier today. Signature stamp does not reflect patient encounter time.). - Tavares Ortiz MD Subjective Gastrointestinal/Abdominal: Reports: no symptoms Objective Last 24 Hour Vital Signs Date Time Temp Pulse Resp B/P (MAP) Pulse Ox O2 Delivery O2 Flow Rate FiO2 07/19/19 12:00 98.5 56 18 138/72 (94) 100 07/19/19 09:00 Room Air 07/19/19 08:00 97.4 67 18 121/86 (98) 100 07/19/19 04:00 97.7 63 19 140/62 (88) 95 07/19/19 00:00 96.8 62 19 144/65 (91) 98 07/18/19 20:31 Room Air 07/18/19 19:58 97.9 63 19 129/89 (102) 100 07/18/19 16:00 98.7 63 18 151/79 (103) 100 Intake and Output 07/18/19 07/19/19 19:00 07:00 Intake Total 532.5 ml 2577.5 ml Balance 532.5 ml 2577.5 ml Intake Oral 640 ml IV Total 532.5 ml 637.5 ml Other 1300 ml # Voids 2 # Bowel Movements 1 Laboratory Tests Test 07/19/19 05:54 07/19/19 08:50 White Blood Count 8.1 K/UL (4.8-10.8) Red Blood Count 4.39 M/UL (4.70-6.10) L Hemoglobin 13.5 G/DL (14.2-18.0) L Hematocrit 40.7 % (42.0-52.0) L Mean Corpuscular Volume 93 FL (80-99) Mean Corpuscular Hemoglobin 30.9 PG (27.0-31.0) Mean Corpuscular Hemoglobin Concent 33.3 G/DL (32.0-36.0) Red Cell Distribution Width 12.4 % (11.6-14.8) Platelet Count 233 K/UL (150-450) Mean Platelet Volume 5.5 FL (6.5-10.1) L Neutrophils (%) (Auto) 83.9 % (45.0-75.0) H Lymphocytes (%) (Auto) 9.4 % (20.0-45.0) L Monocytes (%) (Auto) 6.1 % (1.0-10.0) Eosinophils (%) (Auto) 0.3 % (0.0-3.0) Basophils (%) (Auto) 0.3 % (0.0-2.0) Sodium Level 144 MMOL/L (136-145) Potassium Level 3.3 MMOL/L (3.5-5.1) L Chloride Level 111 MMOL/L (98-107) H Carbon Dioxide Level 27 MMOL/L (21-32) Anion Gap 6 mmol/L (5-15) Blood Urea Nitrogen 5 mg/dL (7-18) L Creatinine 0.8 MG/DL (0.55-1.30) Estimat Glomerular Filtration Rate mL/min (>60) Glucose Level 89 MG/DL (74-106) Calcium Level 7.6 MG/DL (8.5-10.1) L Phosphorus Level 2.3 MG/DL (2.5-4.9) L Magnesium Level 2.1 MG/DL (1.8-2.4) Total Bilirubin 0.3 MG/DL (0.2-1.0) Aspartate Amino Transf (AST/SGOT) 14 U/L (15-37) L Alanine Aminotransferase (ALT/SGPT) 17 U/L (12-78) Alkaline Phosphatase 59 U/L (46-116) Total Protein 5.4 G/DL (6.4-8.2) L Albumin 1.6 G/DL (3.4-5.0) L Globulin 3.8 g/dL Albumin/Globulin Ratio 0.4 (1.0-2.7) L Height (Feet): 5 Height (Inches): 10.00 Weight (Pounds): 151 General Appearance: WD/WN, no apparent distress, alert Cardiovascular: normal rate Respiratory/Chest: normal breath sounds, no respiratory distress Abdominal Exam: normal bowel sounds, non tender, soft Extremities: non-tender Cristina Galloway NP Jul 19, 2019 13:17
--- NOTE | 2019-07-19 14:44 | Diagnostic Imaging Report ---
Indication: Abdominal pain Comparison: 07/12/2019 Single view of the abdomen obtained Findings: There is moderate colonic distention once again demonstrated. On the previous occasion dated 07/12/2019, the colon was decompressed due to a rectal tube. On the occasion before that, dated 07/10/2019, the colon was severely distended. Currently the colon is not distended to that degree. IMPRESSION: Moderate colonic distention
--- NOTE | 2019-07-19 15:41 | Surgery Progress Note ---
Surgery Progress Note Subjective Additional Comments Patient seen and examined bedside. No acute events. Labs improved. Exam stable. KUB noted. Patient states he feels fine. Passing flatus. Objective Last 24 Hour Vital Signs Date Time Temp Pulse Resp B/P (MAP) Pulse Ox O2 Delivery O2 Flow Rate FiO2 07/19/19 12:00 98.5 56 18 138/72 (94) 100 07/19/19 09:00 Room Air 07/19/19 08:00 97.4 67 18 121/86 (98) 100 07/19/19 04:00 97.7 63 19 140/62 (88) 95 07/19/19 00:00 96.8 62 19 144/65 (91) 98 07/18/19 20:31 Room Air 07/18/19 19:58 97.9 63 19 129/89 (102) 100 07/18/19 16:00 98.7 63 18 151/79 (103) 100 I&O Intake and Output 07/18/19 07/19/19 19:00 07:00 Intake Total 532.5 ml 2577.5 ml Balance 532.5 ml 2577.5 ml Intake Oral 640 ml IV Total 532.5 ml 637.5 ml Other 1300 ml # Voids 2 # Bowel Movements 1 Cardiovascular: RSR Respiratory: clear Abdomen: soft, distended, non-tender, decreased bowel sounds Extremities: no edema, no tenderness, no cyanosis Laboratory Tests Test 07/19/19 05:54 07/19/19 08:50 White Blood Count 8.1 K/UL (4.8-10.8) Red Blood Count 4.39 M/UL (4.70-6.10) L Hemoglobin 13.5 G/DL (14.2-18.0) L Hematocrit 40.7 % (42.0-52.0) L Mean Corpuscular Volume 93 FL (80-99) Mean Corpuscular Hemoglobin 30.9 PG (27.0-31.0) Mean Corpuscular Hemoglobin Concent 33.3 G/DL (32.0-36.0) Red Cell Distribution Width 12.4 % (11.6-14.8) Platelet Count 233 K/UL (150-450) Mean Platelet Volume 5.5 FL (6.5-10.1) L Neutrophils (%) (Auto) 83.9 % (45.0-75.0) H Lymphocytes (%) (Auto) 9.4 % (20.0-45.0) L Monocytes (%) (Auto) 6.1 % (1.0-10.0) Eosinophils (%) (Auto) 0.3 % (0.0-3.0) Basophils (%) (Auto) 0.3 % (0.0-2.0) Sodium Level 144 MMOL/L (136-145) Potassium Level 3.3 MMOL/L (3.5-5.1) L Chloride Level 111 MMOL/L (98-107) H Carbon Dioxide Level 27 MMOL/L (21-32) Anion Gap 6 mmol/L (5-15) Blood Urea Nitrogen 5 mg/dL (7-18) L Creatinine 0.8 MG/DL (0.55-1.30) Estimat Glomerular Filtration Rate mL/min (>60) Glucose Level 89 MG/DL (74-106) Calcium Level 7.6 MG/DL (8.5-10.1) L Phosphorus Level 2.3 MG/DL (2.5-4.9) L Magnesium Level 2.1 MG/DL (1.8-2.4) Total Bilirubin 0.3 MG/DL (0.2-1.0) Aspartate Amino Transf (AST/SGOT) 14 U/L (15-37) L Alanine Aminotransferase (ALT/SGPT) 17 U/L (12-78) Alkaline Phosphatase 59 U/L (46-116) Total Protein 5.4 G/DL (6.4-8.2) L Albumin 1.6 G/DL (3.4-5.0) L Globulin 3.8 g/dL Albumin/Globulin Ratio 0.4 (1.0-2.7) L Plan Problems: (1) Abdominal distention Assessment & Plan: similar to prior but now patient with more weight loss so distention more prominent soft, no perforation, non tender, but still massively distended discussed with patient at bedside. still having small multiple BM and flatus. no n/v he has functional colonic and bowel problem and not true obstruction discussed consideration for decompression and surgery he states currently he is not considering surgery as an option decompressed by GI with rectal tube stable will monitor advance diet as tolerated picc line for replacement electrolytes AM labs Rectal tube removed and abdominal becoming slightly more distended clinically no new symptoms Long discussion with patient about potential surgery and currently states he is not interested There is moderate colonic distention once again demonstrated. On the previous occasion dated 07/12/2019, the colon was decompressed due to a rectal tube. On the occasion before that, dated 07/10/2019, the colon was severely distended. Currently the colon is not distended to that degree. will follow with recs thank you There is massive distention of the sigmoid colon with more mild upstream distention of the remainder of the colon. The sigmoid colon measures up to 14 cm in AP dimension. Sigmoid is dilated to a clear transition point just to the right of midline in the pelvis where there is abnormal twisting/swirling of the mesentery around the narrow portion of sigmoid colon. As on the prior exam there is no proximal transition point or narrowing. There is no evidence of free intraperitoneal air or fluid. Some contrast is noted within the rectum. Uncertain if this was administered prior to the current study or if this represents residual from a prior contrast administration. There is a small hiatal hernia. There is thickening of the distal esophagus as well which may suggest esophagitis. There is no evidence of small bowel obstruction. There is mass effect on the intra-abdominal organs related to the markedly distended sigmoid colon. Liver, spleen grossly unremarkable. There is an unchanged indeterminate nodule in the lateral limb of the right adrenal gland which measures up to 1.1 cm. Stable in size compared to the prior exam. There is a large cyst in the upper pole left kidney which measures 6.2 cm. Smaller simple appearing cysts also noted in the left. There is no hydronephrosis or urinary tract stone. Pancreas and bladder grossly unremarkable. The prostate is enlarged and heterogeneous. Abdominal aorta is infrarenal abdominal aorta measures up to 3 cm AP with moderate atherosclerotic calcification. There are degenerative changes in the spine and bilateral hips. There is patchy sclerosis in the visualized osseous structures. No acute fracture. IMPRESSION: * Marked distention of the sigmoid colon up to a abrupt transition in the distal sigmoid where there is swirling in the mesentery concerning for volvulus. Similar to the prior exam no proximal transition point or narrowing is noted, instead there is upstream dilatation of the remainder of the colon. Recommend surgical evaluation and/or colonoscopy. * No evidence of free intraperitoneal air or fluid. * No small bowel obstruction. * Small hiatal hernia with thickening of the distal esophagus suggesting esophagitis. Consider correlation with endoscopy. 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 * Indeterminate right adrenal nodule measuring 1.1 cm, stable compared to the prior exam. * Left renal cysts, largest measures approximately 6.3 cm diameter. * Enlarged and heterogeneous prostate which may be on the basis of BPH. Correlation with prostate exam and PSA however is recommended. * Unusual osseous mineralization with patchy sclerosis, also seen previously and unchanged. This may be on the basis of chronic osteoporotic changes. Consider further evaluation with bone scan. (2) Ileus (3) Gastroparesis (4) Failure to thrive Assessment & Plan: Pt presented on admission with partial thickness pressure injury sacrum. Base of wound is moist-viable with surrounding darker skin tone without erythema or induration.Pt is emaciated. Skin very dry. R leg edematous. Both heels are Boggy but blanchable. Cavilon Skin Barrier applied to bony prominences of R and L hips and both heels to protect skin. Pt positrioned on aids with pillows and both heels off-loaded with pillow. Tx.Plan: Apply Moisture Barrier Paste to Sacrum . Cover with Optifoam drsg. Change every 3 days and prn. Apply Cavilon Skin Barrier to Bilat hips. Cover each hip with Optifoam drsg. Change every 7 days and prn. Apply Cavilon Skin Barrier to both heels.Cover each heel with Optifoam drsg. change every 7 days and prn. Reposition at least every 2hours or as tolerated. Off-load heels with pillow. Chava Smith Jul 19, 2019 15:41
[2019-07-19 16:00] VITALS: BP 131/83
--- NOTE | 2019-07-19 16:52 | Cardiac Electrophysiology PN ---
Assessment/Plan Assessment/Plan 1. Troponin leak. No chest pain or SOB. EKG is ventricularly paced. Echo Nl EF 2. Status post [facility] pacer. Interrogation showed normal function. 3. Severe hypokalemia with Potassium as low as 1.7. On Aldactone 50 bid and more iv and po KCL 4. Hypernatremia better with IV fluid. 5. Possible bowel obstruction. CT scan of abdomen and pelvis showed marked distention of the sigmoid colon. No evidence of free intraperitoneal air or fluid. No small bowel obstruction. Christian Smith. DW RN DC to [facility] pending Subjective Subjective No CP or SOB. Objective Last 24 Hour Vital Signs Date Time Temp Pulse Resp B/P (MAP) Pulse Ox O2 Delivery O2 Flow Rate FiO2 07/19/19 16:00 98.6 61 18 131/83 (99) 99 07/19/19 12:00 98.5 56 18 138/72 (94) 100 07/19/19 09:00 Room Air 07/19/19 08:00 97.4 67 18 121/86 (98) 100 07/19/19 04:00 97.7 63 19 140/62 (88) 95 07/19/19 00:00 96.8 62 19 144/65 (91) 98 07/18/19 20:31 Room Air 07/18/19 19:58 97.9 63 19 129/89 (102) 100 Intake and Output 07/18/19 07/19/19 19:00 07:00 Intake Total 532.5 ml 2577.5 ml Balance 532.5 ml 2577.5 ml Intake Oral 640 ml IV Total 532.5 ml 637.5 ml Other 1300 ml # Voids 2 # Bowel Movements 1 Laboratory Tests Test 07/19/19 05:54 07/19/19 08:50 White Blood Count 8.1 K/UL (4.8-10.8) Red Blood Count 4.39 M/UL (4.70-6.10) L Hemoglobin 13.5 G/DL (14.2-18.0) L Hematocrit 40.7 % (42.0-52.0) L Mean Corpuscular Volume 93 FL (80-99) Mean Corpuscular Hemoglobin 30.9 PG (27.0-31.0) Mean Corpuscular Hemoglobin Concent 33.3 G/DL (32.0-36.0) Red Cell Distribution Width 12.4 % (11.6-14.8) Platelet Count 233 K/UL (150-450) Mean Platelet Volume 5.5 FL (6.5-10.1) L Neutrophils (%) (Auto) 83.9 % (45.0-75.0) H Lymphocytes (%) (Auto) 9.4 % (20.0-45.0) L Monocytes (%) (Auto) 6.1 % (1.0-10.0) Eosinophils (%) (Auto) 0.3 % (0.0-3.0) Basophils (%) (Auto) 0.3 % (0.0-2.0) Sodium Level 144 MMOL/L (136-145) Potassium Level 3.3 MMOL/L (3.5-5.1) L Chloride Level 111 MMOL/L (98-107) H Carbon Dioxide Level 27 MMOL/L (21-32) Anion Gap 6 mmol/L (5-15) Blood Urea Nitrogen 5 mg/dL (7-18) L Creatinine 0.8 MG/DL (0.55-1.30) Estimat Glomerular Filtration Rate mL/min (>60) Glucose Level 89 MG/DL (74-106) Calcium Level 7.6 MG/DL (8.5-10.1) L Phosphorus Level 2.3 MG/DL (2.5-4.9) L Magnesium Level 2.1 MG/DL (1.8-2.4) Total Bilirubin 0.3 MG/DL (0.2-1.0) Aspartate Amino Transf (AST/SGOT) 14 U/L (15-37) L Alanine Aminotransferase (ALT/SGPT) 17 U/L (12-78) Alkaline Phosphatase 59 U/L (46-116) Total Protein 5.4 G/DL (6.4-8.2) L Albumin 1.6 G/DL (3.4-5.0) L Globulin 3.8 g/dL Albumin/Globulin Ratio 0.4 (1.0-2.7) L Objective HEAD AND NECK: No JVD. LUNGS: Clear. CARDIOVASCULAR: Regular S1 and S2 with no gallop. 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 ABDOMEN: Soft EXTREMITIES: No pitting edema. Cedric Bernard MD Jul 19, 2019 16:52
--- NOTE | 2019-07-19 17:51 | NUR ---
NURSE NOTES: Report given to Destiny at [facility].
--- NOTE | 2019-07-19 18:29 | NUR ---
Received order to DC pt. pt stable condition, Vs stable, denies pain, Dressing RUE, on sacral ,changed per order. IV med infusing, no belongings, no home medications, family at bedside, report given to Destiny at [facility], BM x 1, voiding. DC instruction given, verbalize understanding.
--- NOTE | 2019-07-19 19:02 | NUR ---
DC PICC line from [facility], no bleeding, no resistant, 37 cm of PICC cath removed, verified with Ria GOSS, IV dc from L forearm. waiting for the transport.
--- NOTE | 2019-07-19 19:53 | NUR ---
HAND-OFF: Report given to Alycia GOSS.
--- NOTE | 2019-07-19 19:55 | NUR ---
NURSE NOTES: Received pt from Clint Alvarez stable, denies pain, Dressing on sacral ,changed, clean dry and intact. Pt alert and oriented in pleasant disposition lying in bed in semi fowlers position. bed locked in lowest position. Was endorsed that report was given to Destiny at [facility]. Informed patient of pending transfer. DC instruction given, verbalized understanding.
[2019-07-19 20:00] VITALS: BP 140/63
[2019-07-19] MEDS: Dyna-Hex 2% Top Sol 2oz TOPIC SCH (20:00)
--- NOTE | 2019-07-19 21:44 | General Progress Note ---
Assessment/Plan Problem List: (1) Ileus ICD Codes: K56.7 - Ileus, unspecified SNOMED: 292661614 (2) HTN (hypertension) ICD Codes: I10 - Essential (primary) hypertension SNOMED: 70557394 (3) Volvulus ICD Codes: K56.2 - Volvulus SNOMED: 7264051 (4) Abdominal distention ICD Codes: R14.0 - Abdominal distension (gaseous) SNOMED: 05403410 (5) Elevated troponin ICD Codes: R79.89 - Other specified abnormal findings of blood chemistry SNOMED: 242435609, 817877511, 435875248 (6) Hypokalemia ICD Codes: E87.6 - Hypokalemia SNOMED: 36077466 Status: stable Assessment/Plan: k improved dc today see dc summary for details cellulitis of ramon zarco is chronic Subjective Allergies: Coded Allergies: No Known Allergies (Unverified , 04/22/17) Objective Last 24 Hour Vital Signs Date Time Temp Pulse Resp B/P (MAP) Pulse Ox O2 Delivery O2 Flow Rate FiO2 07/19/19 16:00 98.6 61 18 131/83 (99) 99 07/19/19 12:00 98.5 56 18 138/72 (94) 100 07/19/19 09:00 Room Air 07/19/19 08:00 97.4 67 18 121/86 (98) 100 07/19/19 04:00 97.7 63 19 140/62 (88) 95 07/19/19 00:00 96.8 62 19 144/65 (91) 98 Intake and Output 07/18/19 07/19/19 19:00 07:00 Intake Total 532.5 ml 2577.5 ml Balance 532.5 ml 2577.5 ml Intake Oral 640 ml IV Total 532.5 ml 637.5 ml Other 1300 ml # Voids 2 # Bowel Movements 1 Laboratory Tests 07/19/19 05:54: White Blood Count 8.1, Red Blood Count 4.39L, Hemoglobin 13.5L, Hematocrit 40.7L , Mean Corpuscular Volume 93, Mean Corpuscular Hemoglobin 30.9, Mean Corpuscular Hemoglobin Concent 33.3, Red Cell Distribution Width 12.4, Platelet Count 233, Mean Platelet Volume 5.5L, Neutrophils (%) (Auto) 83.9H, Lymphocytes (%) (Auto) 9.4L, Monocytes (%) (Auto) 6.1, Eosinophils (%) (Auto) 0.3, Basophils (%) (Auto) 0.3 07/19/19 08:50: Sodium Level 144, Potassium Level 3.3L, Chloride Level 111H, Carbon Dioxide Level 27, Anion Gap 6, Blood Urea Nitrogen 5L, Creatinine 0.8, Estimat Glomerular Filtration Rate , Glucose Level 89, Calcium Level 7.6L, Phosphorus Level 2.3L, Magnesium Level 2.1, Total Bilirubin 0.3, Aspartate Amino Transf ( AST/SGOT) 14L, Alanine Aminotransferase (ALT/SGPT) 17, Alkaline Phosphatase 59, Total Protein 5.4L, Albumin 1.6L, Globulin 3.8, Albumin/Globulin Ratio 0.4L Height (Feet): 5 Height (Inches): 10.00 Weight (Pounds): 151 Jose Francisco Chand MD Jul 19, 2019 21:44
--- NOTE | 2019-07-19 22:28 | NUR ---
NURSE NOTES: Pt discharged in stable condition all IV access and PICC line previously removed. VSS sent with [facility] to return to [facility].
--- NOTE | 2019-07-20 09:34 | Discharge Summary ---
Discharge Summary Discharge Summary _ DATE OF ADMISSION: 07/09/2019 DATE OF DISCHARGE: 07/19/2019 DISCHARGED BY: Dr Chand REASON FOR ADMISSION: 78 years old male, resident of alf facility, with past medical history of diabetes mellitus, hypertension, pacemaker, hypothyroidism, anemia, dementia, was sent for evaluation due to failure to eat or take his medications and abdominal distention. Vital signs were stable. Laboratory work-up revealed no leukocytosis, stable hemoglobin and hematocrit. Potassium 2.5. BUN 25, creatinine 1.2 . Troponin 0.06. EKG revealed paced rhythm with heart rate of 60. Patient refused catheterization and urinalysis. Potassium was replaced. Aspirin given rectally for minimally elevated troponin. Abdomen appeared to be distended , but no guarding and no rebound on examination. Chest x-ray revealed dilated loops of large bowels, no free air. CT of the abdomen and pelvis revealed marked distention of the sigmoid colon up to abrupt transition in the distal sigmoid where there was a swirling in the mesentery , concerning for volvulus. Similar to the prior exam . No evidence of free intraperitoneal air or fluid . N o small bowel obstruction. Patient was admitted for further management. CONSULTANTS: kiln feeder Dr. Hussein ID specialist Dr. Calix GI specialist Dr. Woodruff risk officer Dr. Marshall softball player/oncologist Dr. Singletary [facility] COURSE: Patient subsequently admitted to the hospital for further management. GI specialist followed. GI specialist placed 30 Czech soft Alfred catheter and maneuvered it into the sigmoid colon, which resulted in the prompt release of the entire abdominal gas , so that the abdominal felt soft. Patient felt well at the end of examination. Catheter was left to gravitational drainage, to be flushed every 6 hours. GI specialist recommended surgical evaluation with respect to surgical versus nonoperative management of the volvulus finding. Patient started on oral intake as tolerated. Rectal tube was flushed as per GI specialist recommendation. Surgeon closely reviewed CT scan; physical examination was benign. Per surgeon , patient had functional colonic and bowel problem and not a true obstruction. Findings were discussed with the patient , who stated that currently he was not considering surgery as an option. Surgeon recommended continue nonsurgical management with decompressing with rectal tube; diet was advanced as tolerated. As patient clinically improved , rectal tube was removed . Abdomen became slightly more distended clinically, but no new symptoms. A long discussion was held with patient about potential surgery , but patient again stated that he currently was not interested in surgery. Youth Ministry Director closely followed. Renal parameters and electrolytes were closely monitored. Nephrotoxic's were avoided. Patient with severe hypokalemia, as low as 1.7. Potassium was replaced with IV and oral potassium. Patient started on Aldactone. Prior to discharge potassium 3.3 , sodium 144. BUN down to 5, creatinine down to 0.8. Assistant Superintendent For Curriculum followed. Patient denied chest pain or shortness of breath . Per kiln feeder, patient had troponin leak. EKG was ventricularly paced. Echo revealed preserved ejection fraction. Interrogation of the [place] pacemaker showed normal functioning. Infectious disease specialist followed due to leukocytosis. Urine culture revealed E. coli, Proteus ESBL and Pseudomonas. Patient was on IV Zosyn while in the hospital. Leukocytosis resolved no fevers. Patient completed treatment with antibiotic . ID specialist recommended keep patient off antibiotic . Hemoglobin and hematocrit were closely monitored with goal to keep hemoglobin above 7 , and remained stable. Prior to discharge hemoglobin 13.5 , hematocrit 40.7. Patient clinically stabilized and was ready for transfer back to alf facility for continuation of care. FINAL DIAGNOSES: Abdominal distention Ileus Volvulus Megacolon Dehydration Severe hypokalemia Troponin leak UTI with E. coli , Proteus ESBL and Pseudomonas. Status post [place] pacemaker Failure to thrive DISCHARGE MEDICATIONS: See Medication Reconciliation list. DISCHARGE INSTRUCTIONS: Patient was discharged to the alf facility. Follow up with medical doctor at the facility. I have been assigned to dictate discharge summary for this account. I was not involved in the patient's management. Kalyn Crowder NP Jul 20, 2019 09:34
== END 2019-07-19 22:00 | DRG 389 ==
LOC: EDBD 13:01 → EMR 13:30 → 2E 13:59 → EDBEDREQ 16:57 → 4E 07-16 12:12
DX: K56.7 Ileus, unspecified (principal); E87.0 Hyperosmolality and hypernatremia; G93.40 Encephalopathy, unspecified; N39.0 Urinary tract infection, site not specified; K59.39 Other megacolon; L97.919 Non-pressure chronic ulcer of unspecified part of right lower leg with unspecified severity; R14.0 Abdominal distension (gaseous); K31.89 Other diseases of stomach and duodenum; E87.6 Hypokalemia; K56.2 Volvulus; E86.0 Dehydration; I11.0 Hypertensive heart disease with heart failure; I50.9 Heart failure, unspecified; E11.9 Type 2 diabetes mellitus without complications; Z95.0 Presence of cardiac pacemaker; F03.90 Unspecified dementia, unspecified severity, without behavioral disturbance, psychotic disturbance, mood disturbance, and anxiety; E03.9 Hypothyroidism, unspecified; R62.7 Adult failure to thrive; Z68.21 Body mass index [BMI] 21.0-21.9, adult; D64.9 Anemia, unspecified; K44.9 Diaphragmatic hernia without obstruction or gangrene; K31.84 Gastroparesis; B96.20 Unspecified Escherichia coli [E. coli] as the cause of diseases classified elsewhere; Z66 Do not resuscitate; T80.89XA Other complications following infusion, transfusion and therapeutic injection, initial encounter; R79.89 Other specified abnormal findings of blood chemistry; Z86.73 Personal history of transient ischemic attack (TIA), and cerebral infarction without residual deficits
CPT/HCPCS: 36415; 36569; 71045; 74018; 74177; 76937; 80048; 80053; 81001; 82550; 82962; 83605; 83690; 83735; 83880; 84100; 84153; 84443; 84484; 84550; 85007; 85025; 85610; 85730; 86140; 87045; 87086; 87181; 87324; 93005; 93306; 93970; 93971; 96361; 96365; 99285; J8499